=== PATIENT | male | born 1960 | race Caucasian/White ===

== ENCOUNTER 2016-11-10 11:00 | Outpatient (CLI) | payer MEDICAID | END 2016-11-10 23:59 | DX: I10 Essential (primary) hypertension (principal) ==

== ENCOUNTER 2017-03-11 09:51 | Outpatient (CLI) | payer MEDICAID | END 2017-03-11 09:52 | disposition critical access hospital (66) | LOC: EMS 09:51 | PROVIDERS: ATTEND Surgery | DX: S89.91XA Unspecified injury of right lower leg, initial encounter (principal); W18.39XA Other fall on same level, initial encounter; Y92.003 Bedroom of unspecified non-institutional (private) residence as the place of occurrence of the external cause | CPT/HCPCS: A0425; A0427 ==

== ENCOUNTER 2017-03-11 10:25 | Emergency (ER) | payer MEDICAID ==
[2017-03-11] MEDS ORDERED: ONDANSETRON 4 MG/2 ML VIAL IVP STA (12:41)
[2017-03-11] MEDS ORDERED: HYDROmorphone 1 MG/ML SYRINGE IVP STA ×2 (12:41→15:34)
[2017-03-11] MEDS ORDERED: ONDANSETRON 4 MG/2 ML VIAL ONE (12:44)
[2017-03-11] MEDS ORDERED: HYDROmorphone 1 MG/ML SYRINGE ONE ×2 (12:44→15:36)
[2017-03-11] MEDS ORDERED: LIDOCAINE 1% 2 ML VIAL ONE (14:48)
[2017-03-11] MEDS ORDERED: TETANUS/DIPHTHERIA/PERTUSSIS 0.5 ML SYRINGE IM ONE ×2 (15:16→15:19)
[2017-03-11] MEDS ORDERED: SERTRALINE 50 MG TABLET PO STA (16:32)
[2017-03-11] MEDS ORDERED: HYDROcod/ACET 5/325 Prepack 6 PO ONE ×2 (16:41→16:57)
== END 2017-03-11 17:42 | disposition home or self-care (01) ==
DX: S82.391A Other fracture of lower end of right tibia, initial encounter for closed fracture (principal); S91.311A Laceration without foreign body, right foot, initial encounter; M25.561 Pain in right knee; W18.39XA Other fall on same level, initial encounter; Y92.003 Bedroom of unspecified non-institutional (private) residence as the place of occurrence of the external cause; I69.051 Hemiplegia and hemiparesis following nontraumatic subarachnoid hemorrhage affecting right dominant side; E66.01 Morbid (severe) obesity due to excess calories; I10 Essential (primary) hypertension; E11.9 Type 2 diabetes mellitus without complications; Z93.0 Tracheostomy status; Z79.4 Long term (current) use of insulin; Z79.82 Long term (current) use of aspirin; Z87.891 Personal history of nicotine dependence

== ENCOUNTER 2017-03-11 17:56 | Outpatient (CLI) | payer MEDICAID | END 2017-03-11 17:57 | disposition critical access hospital (66) | LOC: EMS 17:56 | PROVIDERS: ATTEND Surgery | DX: I49.9 Cardiac arrhythmia, unspecified (principal) ==

== ENCOUNTER 2017-03-11 18:18 | Inpatient (IN) | payer MEDICAID ==
[2017-03-11] MEDS ORDERED: diltiaZEM INJ 5 MG/ML VIAL IVP STA ×2 (18:28→21:17)
[2017-03-11] MEDS ORDERED: diltiaZEM INJ 5 MG/ML VIAL ONE ×3 (18:35→22:18)
[2017-03-11] MEDS ORDERED: HYDROmorphone 1 MG/ML SYRINGE ONE ×2 (18:52→21:16)
[2017-03-11] MEDS ORDERED: PROCAINAMIDE 100 MG/1 ML 10 ML MDV IV ONE (19:05)
[2017-03-11] MEDS ORDERED: HYDROmorphone 1 MG/ML SYRINGE IVP STA ×2 (19:05→21:17)
[2017-03-11] MEDS ORDERED: PROCAINAMIDE 100 MG/1 ML 10 ML MDV IV SCH (19:15)
[2017-03-11] MEDS ORDERED: diltiaZEM INJ 125 MG in DEXTROSE 5% 100 ML IV STA ×2 (22:14→22:35)
[2017-03-11] MEDS ORDERED: ONDANSETRON 4 MG/2 ML VIAL IVP PRN (22:27)
[2017-03-11] MEDS ORDERED: ACETAMINOPHEN 325 MG TABLET PO PRN (22:27)
[2017-03-11] MEDS ORDERED: diltiaZEM INJ 5 MG/ML VIAL IVP PRN (22:36)
[2017-03-11] MEDS: HYDROcod/ACETAM 10 MG/325 MG TABLET PO PRN (23:44)
[2017-03-12] MEDS: MAGNESIUM OXIDE 400 MG TABLET PO SCH ×2 (03:08→07:33)
[2017-03-12] MEDS: HYDROmorphone 1 MG/ML SYRINGE IVP PRN ×4 (03:08→18:33)
[2017-03-12] MEDS: SODIUM CHLORIDE FLUSH 0.9% 10 ML SYRINGE IVP SCH ×3 (04:40→21:28)
[2017-03-12] MEDS: diltiaZEM INJ 125 MG in DEXTROSE 5% 100 ML IV SCH ×2 (07:27→16:52)
[2017-03-12] MEDS: BACLOFEN 10 MG TABLET PO PRN ×2 (07:33→14:18)
[2017-03-12] MEDS: INSULIN ASPART 300 UNIT/3 ML PEN SUBQ SCH ×6 (07:54→21:25)
[2017-03-12] MEDS ORDERED: INSULIN ASPART 300 UNIT/3 ML PEN SUBQ SCH (08:00)
[2017-03-12] MEDS: FUROSEMIDE 40 MG TABLET PO SCH (08:41)
[2017-03-12] MEDS: FENOFIBRATE 48 MG TABLET PO SCH (08:41)
[2017-03-12] MEDS: ASPIRIN CHEW 81 MG TABLET PO SCH (08:41)
[2017-03-12] MEDS: OMEGA-3 ACID ETHYL ESTERS 1 GM CAPSULE PO SCH ×2 (08:41→21:28)
[2017-03-12] MEDS: ENOXAPARIN 40 MG/0.4 ML SYRINGE SUBQ SCH (08:41)
[2017-03-12] MEDS: GABAPENTIN 100 MG CAPSULE PO SCH (08:41)
[2017-03-12] MEDS: LISINOPRIL 5 MG TABLET PO SCH ×2 (08:41→21:24)
[2017-03-12] MEDS ORDERED: NON FORMULARY MED (Lovastatin [Lovastatin] 40 MG) PO SCH (09:00)
[2017-03-12] MEDS ORDERED: INSULIN GLARGINE 300 UNIT/3 ML PEN SUBQ SCH (09:00)
[2017-03-12] MEDS: HYDROcod/ACETAM 10 MG/325 MG TABLET PO PRN ×3 (10:06→22:23)
[2017-03-12] MEDS: DIGOXIN 500 MCG/2 ML AMP IVP SCH ×3 (12:02→19:36)
[2017-03-12] MEDS: INSULIN GLARGINE 300 UNIT/3 ML PEN SUBQ SCH (18:33)
[2017-03-12] MEDS ORDERED: SERTRALINE 50 MG TABLET PO SCH (21:00)
[2017-03-12] MEDS: ATORVASTATIN 10 MG TABLET PO SCH (21:25)
[2017-03-12] MEDS ORDERED: diltiaZEM CD 240 MG CAPSULE PO SCH (21:41)
[2017-03-13] MEDS: HYDROmorphone 1 MG/ML SYRINGE IVP PRN (01:03)
[2017-03-13] MEDS: HYDROcod/ACETAM 10 MG/325 MG TABLET PO PRN ×3 (06:14→17:41)
[2017-03-13] MEDS: SODIUM CHLORIDE FLUSH 0.9% 10 ML SYRINGE IVP SCH ×3 (06:14→21:22)
[2017-03-13] MEDS: INSULIN ASPART 300 UNIT/3 ML PEN SUBQ SCH ×7 (07:50→21:06)
[2017-03-13] MEDS ORDERED: AMPICILLIN/SULBACTAM 3 GM in SODIUM CHLORIDE 0.9% MINIBAG 100 ML IV SCH (09:00)
[2017-03-13] MEDS ORDERED: diltiaZEM CD 240 MG CAPSULE PO SCH (09:00)
[2017-03-13] MEDS: ASPIRIN CHEW 81 MG TABLET PO SCH (09:08)
[2017-03-13] MEDS: diltiaZEM CD 240 MG CAPSULE PO SCH ×2 (09:09→21:22)
[2017-03-13] MEDS: FENOFIBRATE 48 MG TABLET PO SCH (09:10)
[2017-03-13] MEDS: ENOXAPARIN 40 MG/0.4 ML SYRINGE SUBQ SCH (09:10)
[2017-03-13] MEDS: FUROSEMIDE 40 MG TABLET PO SCH (09:11)
[2017-03-13] MEDS: INSULIN GLARGINE 300 UNIT/3 ML PEN SUBQ SCH ×2 (09:12→21:10)
[2017-03-13] MEDS: GABAPENTIN 100 MG CAPSULE PO SCH (09:12)
[2017-03-13] MEDS: OMEGA-3 ACID ETHYL ESTERS 1 GM CAPSULE PO SCH ×2 (09:13→21:05)
[2017-03-13] MEDS: LISINOPRIL 5 MG TABLET PO SCH ×2 (09:13→21:03)
[2017-03-13] MEDS: BACLOFEN 10 MG TABLET PO PRN (09:14)
[2017-03-13] MEDS ORDERED: SODIUM CHLORIDE 0.9% 100ML 100 ML IV ONE (17:25)
[2017-03-13] MEDS: SODIUM CHLORIDE FLUSH 0.9% 10 ML SYRINGE IVP PRN ×2 (17:36→22:51)
[2017-03-13] MEDS: AMPICILLIN/SULBACTAM 3 GM in SODIUM CHLORIDE 0.9% MINIBAG 100 ML IV SCH ×2 (17:36→22:50)
[2017-03-13] MEDS ORDERED: DOCUSATE SODIUM 250 MG CAPSULE PO PRN ×2 (20:25→20:28)
[2017-03-13] MEDS ORDERED: SENNA 8.6 MG TABLET PO PRN (20:48)
[2017-03-13] MEDS ORDERED: SERTRALINE 50 MG TABLET PO SCH (21:00)
[2017-03-13] MEDS: ATORVASTATIN 10 MG TABLET PO SCH (21:03)
[2017-03-13] MEDS ORDERED: diltiaZEM CD 120 MG CAPSULE PO ONE (21:05)
[2017-03-14] MEDS: HYDROcod/ACETAM 10 MG/325 MG TABLET PO PRN ×2 (04:10→11:16)
[2017-03-14] MEDS: SODIUM CHLORIDE FLUSH 0.9% 10 ML SYRINGE IVP SCH ×2 (05:03→09:16)
[2017-03-14] MEDS: AMPICILLIN/SULBACTAM 3 GM in SODIUM CHLORIDE 0.9% MINIBAG 100 ML IV SCH ×2 (05:03→11:35)
[2017-03-14] MEDS ORDERED: diltiaZEM CD 120 MG CAPSULE PO SCH (09:00)
[2017-03-14] MEDS ORDERED: POLYETHYLENE GLYCOL 3350 17 GM PACKET PO SCH (09:00)
[2017-03-14] MEDS: INSULIN ASPART 300 UNIT/3 ML PEN SUBQ SCH ×4 (09:10→12:39)
[2017-03-14] MEDS: INSULIN GLARGINE 300 UNIT/3 ML PEN SUBQ SCH (09:13)
[2017-03-14] MEDS: GABAPENTIN 100 MG CAPSULE PO SCH (09:14)
[2017-03-14] MEDS: FUROSEMIDE 40 MG TABLET PO SCH (09:14)
[2017-03-14] MEDS: FENOFIBRATE 48 MG TABLET PO SCH (09:14)
[2017-03-14] MEDS: OMEGA-3 ACID ETHYL ESTERS 1 GM CAPSULE PO SCH (09:14)
[2017-03-14] MEDS: ENOXAPARIN 40 MG/0.4 ML SYRINGE SUBQ SCH (09:15)
[2017-03-14] MEDS: ASPIRIN CHEW 81 MG TABLET PO SCH (09:15)
[2017-03-14] MEDS: LISINOPRIL 5 MG TABLET PO SCH (09:15)
[2017-03-14] MEDS: BACLOFEN 10 MG TABLET PO PRN (11:30)
[2017-03-14] MEDS ORDERED: HYDROcod/ACETAM 10 MG/325 MG TABLET PO ONE (13:21)
== END 2017-03-14 13:42 | disposition home or self-care (01) | DRG 309 ==
DX: I48.1 Persistent atrial fibrillation (principal); I69.051 Hemiplegia and hemiparesis following nontraumatic subarachnoid hemorrhage affecting right dominant side; Z68.43 Body mass index [BMI] 50.0-59.9, adult; S82.391A Other fracture of lower end of right tibia, initial encounter for closed fracture; S91.311A Laceration without foreign body, right foot, initial encounter; M25.561 Pain in right knee; W18.39XA Other fall on same level, initial encounter; Y92.003 Bedroom of unspecified non-institutional (private) residence as the place of occurrence of the external cause; E66.01 Morbid (severe) obesity due to excess calories; I10 Essential (primary) hypertension; E11.65 Type 2 diabetes mellitus with hyperglycemia; J38.00 Paralysis of vocal cords and larynx, unspecified; E87.5 Hyperkalemia; F32.9 Major depressive disorder, single episode, unspecified; G89.4 Chronic pain syndrome; Z93.0 Tracheostomy status; Z79.4 Long term (current) use of insulin; Z79.82 Long term (current) use of aspirin; Z87.891 Personal history of nicotine dependence; Z99.81 Dependence on supplemental oxygen

== ENCOUNTER 2017-03-14 13:44 | Outpatient (CLI) | payer MEDICAID | END 2017-03-14 13:45 | disposition home or self-care (01) | LOC: EMS 13:44 | PROVIDERS: ATTEND Surgery | DX: S82.301A Unspecified fracture of lower end of right tibia, initial encounter for closed fracture (principal) | CPT/HCPCS: A0425; A0428 ==

== ENCOUNTER 2017-03-15 09:07 | Outpatient (CLI) | payer MEDICAID | END 2017-03-15 09:08 | disposition critical access hospital (66) | LOC: EMS 09:07 | PROVIDERS: ATTEND Surgery | DX: M79.661 Pain in right lower leg (principal); R53.1 Weakness; R50.9 Fever, unspecified | CPT/HCPCS: A0425; A0429 ==

== ENCOUNTER 2017-03-15 09:39 | Inpatient (IN) | payer MEDICAID ==
[2017-03-15] MEDS ORDERED: metFORMIN 500 MG TABLET PO STA (09:51)
[2017-03-15] MEDS ORDERED: diltiaZEM CD 120 MG CAPSULE PO STA (09:51)
[2017-03-15] MEDS ORDERED: HYDROcod/ACETAM 10 MG/325 MG TABLET PO STA (09:51)
--- NOTE | 2017-03-15 09:59 | ED Physician Documentation ---
History of Present Illness - Stated complaint Stated Complaint: FAILURE TO THRIVE - Chief complaint Chief Complaint: General - Additonal information Additional information: hx from EMS, pt, EMR, and hospitalist who care for pt this week 56 male with hx prior CVA now R hemiplegic with a trach bed bound recently seen for an ankle fx on his non wt bearing side, and then admitted for a fib RVR hx int a fib - had an extensive cardiac work up including echo which did not show evidence of R heart strain PE per hospitalist, ortho consulted re ankle fx it was recommended he be dced to SNF, per hospitalist pt refused and so was dced home with [facility] 7 hr a day EMS reports that when they returned the pt home the family (86 y/o mother) stated she could not take care of him mother called hospitalist last night a conference call was arranged for 10 AM to consider placement and or other option but approx 9 AM, 911 was called to return pt to hospital for placement per EMS pt was sitting in bed soaked in urine, he has not taken his AM med so his blood sugar and HR are up, and he now agrees a SNF is best pt has no new concerns injuries complaints his ankle hurts but no other pain no fever, no new cough, no NVD, incont of urine 2/2 cannot get up Review of Systems Constitutional: denies: Fever, Chills Cardiac: denies: Chest pain / pressure, Palpitations Respiratory: reports: Cough (baseline). denies: Dyspnea GI: denies: Abdominal Pain, Nausea, Vomiting, Diarrhea : reports: Incontinent (due to being bed bound) Musculoskeletal: reports: Extremity pain (known ankle fx) Endocrine: denies: Easy bruising / bleeding Immunocompromised: denies: Immunocompromised PD PAST MEDICAL HISTORY - Past Medical History Cardiovascular: Hypertension, High cholesterol Respiratory: Other Neuro: Other Endocrine/Autoimmune: Type 2 diabetes GI: None : None HEENT: None Psych: Depression Musculoskeletal: None Derm: None - Past Surgical History Past Surgical History: Yes General: Cholecystectomy HEENT: Tracheostomy - Present Medications Home Medications: Ambulatory Orders Medication Instructions Recorded Confirmed Insulin Glargine,Hum.rec.anlog 76 unit SQ QPM 03/20/13 03/15/17 [Lantus Solostar] Lisinopril 10 mg PO BID 03/20/13 03/15/17 Lovastatin 40 mg PO QPM 03/20/13 03/15/17 Multivitamin [Multivitamins] 1 each PO DAILY 03/20/13 03/15/17 metFORMIN [Glucophage] 1,000 mg PO BIDWM 03/20/13 03/15/17 Fenofibrate 160 mg PO DAILY 06/10/14 03/15/17 Aspirin 81 mg PO DAILY 10/04/16 03/15/17 HYDROcodone/ACET 10/325 [[place] 10 1 tab PO QID 10/04/16 03/15/17 mg/325 mg] Insulin Aspart [Novolog Flexpen] 40 unit SUBQ TIDWM 10/04/16 03/15/17 Furosemide [Lasix] 80 mg PO DAILY 03/11/17 03/15/17 Gabapentin 100 - 200 mg PO QPM 03/11/17 03/15/17 Hydrocodone/Acetaminophen [[place] 1 each PO Q6HR PRN #20 tablet 03/11/17 03/15/17 10-325 Tablet] Icosapent Ethyl [Vascepa] 2 gm PO BID 03/12/17 03/15/17 Sertraline HCl [Zoloft] 300 mg PO QPM 03/12/17 03/15/17 Baclofen 10 mg PO TID PRN #21 tablet 03/14/17 03/15/17 diltiaZEM CD [Cardizem Cd] 120 mg PO BID #60 capsule 03/14/17 03/15/17 - Allergies Allergies/Adverse Reactions: Allergies Allergy/AdvReac Type Severity Reaction Status Date / Time niacin Allergy Severe Hives Verified 03/15/17 09:58 - Social History Does the pt smoke?: No Smoking Status: Former smoker Does the pt drink ETOH?: No Does the pt have substance abuse?: No - Immunizations Immunizations are current?: No Immunizations: TDAP >10years/unknown - POLST Patient has POLST: No PD ED PE NORMAL - Vitals Vital signs reviewed: Yes - General General: Alert and oriented X 3 - HEENT HEENT: PERRL - Neck Neck: Supple, no meningeal sign - Cardiac Cardiac: RRR (little rapid - did not take AM cardizem) - Respiratory Respiratory: No respiratory distress, Clear bilaterally - Abdomen Abdomen: Soft, Non tender - Male Male : Other (prior scrotal wound well healed) - Back Back: Other (mild erythema but no decub or breakdown) - Derm Derm: Normal color - Extremities Extremities: Other (RLE in camwalker, MSV intact) - Neuro Neuro: Alert and oriented X 3, Other (R hemiparesis) Results - Vitals Vitals: Vital Signs - 24 hr 03/15/17 03/15/17 03/15/17 14:11 17:36 21:20 Heart Rate 72 81 91 Respiratory 18 17 15 Rate Blood Pressure 107/51 L 131/86 H 123/64 O2 Saturation 98 95 97 03/16/17 03/16/17 03/16/17 02:24 02:30 07:59 Heart Rate 104 H 103 H Respiratory 18 24 Rate Blood Pressure 148/60 H 116/63 O2 Saturation 91 L 97 84 L 03/16/17 03/16/17 09:00 11:25 Heart Rate 92 94 Respiratory 20 22 Rate Blood Pressure 113/72 O2 Saturation 94 94 Oxygen O2 Source [] 50% O2 via trach blow by O2 Source Nasal cannula Oxygen Flow Rate 6 - Labs Labs: Laboratory Tests 03/16/17 03/16/17 03/16/17 11:57 11:57 11:57 WBC 11.0 H RBC 4.02 L Hgb 12.0 L Hct 35.0 L MCV 87.1 MCH 29.8 MCHC 34.2 RDW 13.6 Plt Count 258 MPV 8.2 Neut # 7.7 H Lymph # 1.7 [place] # 1.1 H Eos # 0.3 Baso # 0.1 Absolute Nucleated RBC 0.01 Nucleated RBCs 0.1 Sodium 132 L Potassium 4.6 Chloride 88 L Carbon Dioxide 37 H Anion Gap 7.0 BUN 33 H Creatinine 1.0 Estimated GFR (MDRD) 77 L Glucose 299 H Calcium 9.0 Troponin I < 0.04 B-Natriuretic Peptide 03/16/17 11:57 WBC RBC Hgb Hct MCV MCH MCHC RDW Plt Count MPV Neut # Lymph # [place] # Eos # Baso # Absolute Nucleated RBC Nucleated RBCs Sodium Potassium Chloride Carbon Dioxide Anion Gap BUN Creatinine Estimated GFR (MDRD) Glucose Calcium Troponin I B-Natriuretic Peptide 51 - Rads (name of study) CXR Radiology: See rad report (low lung volumes atelectasis) CXR2 Radiology: See rad report (poor insp atelectasis possible mild edema) CTPA Radiology: See rad report (no PE, lingular and LLL consolidation, atelectasis) PD MEDICAL DECISION MAKING - ED course ED course: pt was just discharged yesterday after a thorough work up no need for more labs xrays etc pt needs SNF placement consulted SW will be boarding in the ER indef pending placement gave pt his AM meds - after metformin no change in blood sugar - also ordered his insulin, after cardizem HR down but BP dropped too, recovered s intervention but will hold the lisinopril for now, given his usual dose of norco he was req more suppl O2 than his normal baseline and coughing so got a CXR which showed atelectasis but mo CHF or pna, cannot do IS due to trach but will see if RT has any pulm toilet recommendations SW unable to find placement for pt today - barriers are BMI, hemiparesis, incontinent, trach, and insurance met with admin and nurse sup - am advised pt is to remain in the ER for boarding at this time - admin advises that they have requested the hospitalist to write orders for the pt though he is still an ER pt - I had already ordered some of his daily meds and chosen to hold the BP meds - went through orders with nursing to ensure nothing was double ordered, bariatric bed to the ER pt will be boarding in the ER overnight - turned over to overnight EMP Dr Turpin and will resume care of pt in the AM resumed care 7 AM, no overnight events reported, went to see pt, he is resting comfortably got AM vitals and pt is profoundly hypoxic sat 81-84% on his usual 4 L NC, increased to 6 L, suction trach and will order a rpt CXR CXR poor insp atelectasis possible edema given that pt had recent leg injury, is in a boot, hospitalized and bed ridden at home too, had afib RVR, and is now hypoxic and neding more than his baseline O2 must consider PE - d dimer not appropriate for a high risk pt - GFR was fine within the week - so ordered CTPA - pt will need to hold metformin for next three days CTPA does not show PE but pt does have pna, hospital aquired, will start ab and admit for HAP hypoxia Departure - Departure Disposition: 66 [facility] DC/Xfer Clinical Impression: Hypoxia Pneumonia Qualifiers: Pneumonia type: due to unspecified organism Laterality: left Lung location: lower lobe of lung Qualified Code(s): J18.1 - Lobar pneumonia, unspecified organism
[2017-03-15] MEDS ORDERED: diltiaZEM 30 MG TABLET PO ONE (10:14)
[2017-03-15] MEDS ORDERED: metFORMIN 500 MG TABLET ONE ×2 (10:15→17:52)
--- NOTE | 2017-03-15 12:39 | XRAY Preliminary Report ---
Exam: XR Chest 2 View PA/LAT IMPRESSION: 1. Low lung volumes with left basilar atelectasis. [facility] SITE ID: [id number]
--- NOTE | 2017-03-15 12:41 | XRAY Report ---
EXAM: CHEST RADIOGRAPHY EXAM DATE: 03/15/2017 12:01 PM. CLINICAL HISTORY: Cough with increasing oxygen needs. COMPARISON: 10/11/2016. TECHNIQUE: 2 views. FINDINGS: Lungs/Pleura: Left basilar atelectasis. No pleural effusion. No pneumothorax. Diminished lung volumes. Azygos fissure noted. Mediastinum: Heart and mediastinal contours are unremarkable. Other: Tracheostomy tube tip is 4.6 cm above jayda. IMPRESSION: 1. Low lung volumes with left basilar atelectasis. [facility] Referring Provider Line: [phone] SITE ID: [id number]
[2017-03-15] MEDS ORDERED: HYDROcod/ACETAM 10 MG/325 MG TABLET ONE ×2 (15:29→21:30)
[2017-03-15] MEDS: HYDROcod/ACETAM 10 MG/325 MG TABLET PO PRN ×2 (15:34→21:38)
[2017-03-15] MEDS ORDERED: INSULIN ASPART 100 UNIT/1 ML 10 ML MDV SUBQ SCH (17:00)
[2017-03-15] MEDS: INSULIN ASPART 300 UNIT/3 ML PEN SUBQ SCH (17:58)
[2017-03-15] MEDS: metFORMIN 500 MG TABLET PO SCH (17:59)
[2017-03-15] MEDS ORDERED: LISINOPRIL 5 MG TABLET ONE (21:31)
[2017-03-15] MEDS ORDERED: GABAPENTIN 100 MG CAPSULE ONE (21:31)
[2017-03-15] MEDS: INSULIN GLARGINE 300 UNIT/3 ML PEN SUBQ SCH (21:36)
[2017-03-15] MEDS: OMEGA-3 ACID ETHYL ESTERS 1 GM CAPSULE PO SCH (21:37)
[2017-03-15] MEDS: ATORVASTATIN 10 MG TABLET PO SCH (21:37)
[2017-03-15] MEDS: diltiaZEM CD 120 MG CAPSULE PO SCH (21:37)
[2017-03-15] MEDS: SERTRALINE 50 MG TABLET PO SCH (21:37)
[2017-03-15] MEDS: GABAPENTIN 100 MG CAPSULE PO SCH (21:38)
[2017-03-15] MEDS: LISINOPRIL 5 MG TABLET PO SCH (21:38)
[2017-03-16] MEDS ORDERED: HYDROcod/ACETAM 10 MG/325 MG TABLET ONE ×2 (04:15→09:47)
[2017-03-16] MEDS: HYDROcod/ACETAM 10 MG/325 MG TABLET PO PRN ×3 (04:21→20:20)
[2017-03-16] MEDS: BACLOFEN 10 MG TABLET PO PRN ×3 (04:21→16:11)
[2017-03-16] MEDS ORDERED: metFORMIN 500 MG TABLET ONE (09:10)
[2017-03-16] MEDS ORDERED: LISINOPRIL 5 MG TABLET ONE (09:11)
[2017-03-16] MEDS ORDERED: MULTIVITAMIN TABLET PO ONE (09:11)
[2017-03-16] MEDS ORDERED: ASPIRIN CHEW 81 MG TABLET ONE (09:12)
[2017-03-16] MEDS ORDERED: FUROSEMIDE 20 MG TABLET ONE (09:13)
[2017-03-16] MEDS: INSULIN ASPART 300 UNIT/3 ML PEN SUBQ SCH ×3 (09:22→16:12)
[2017-03-16] MEDS: LISINOPRIL 5 MG TABLET PO SCH ×2 (09:23→20:20)
[2017-03-16] MEDS: diltiaZEM CD 120 MG CAPSULE PO SCH ×2 (09:27→20:20)
[2017-03-16] MEDS: metFORMIN 500 MG TABLET PO SCH (09:27)
[2017-03-16] MEDS: FUROSEMIDE 40 MG TABLET PO SCH (09:27)
[2017-03-16] MEDS: ASPIRIN CHEW 81 MG TABLET PO SCH (09:27)
[2017-03-16] MEDS: MULTIVITAMIN TABLET PO SCH (09:28)
[2017-03-16] MEDS: FENOFIBRATE 48 MG TABLET PO SCH (09:28)
[2017-03-16] MEDS: OMEGA-3 ACID ETHYL ESTERS 1 GM CAPSULE PO SCH ×2 (09:28→20:19)
--- NOTE | 2017-03-16 09:32 | XRAY Report ---
EXAM: CHEST RADIOGRAPHY EXAM DATE: 03/16/2017 09:10 AM. CLINICAL HISTORY: Hypoxia. Clinical concern for pneumonia. COMPARISON: 03/15/2017 radiograph. TECHNIQUE: 2 views. FINDINGS: Lungs/Pleura: The lung volumes are decreased. There may be mild central pulmonary vascular congestion . The patient has a prominent azygos fissure as before. No pneumothorax or pleural effusions. Mediastinum: Heart and mediastinal contours are unremarkable. Other: None. IMPRESSION: Possible mild central pulmonary vascular congestion. [facility] Referring Provider Line: [phone] SITE ID: [id number]
[2017-03-16] MEDS ORDERED: IOPAMIDOL-300 100 ML VIAL IVP ONE (11:17)
[2017-03-16 12:05] LABS: BASOPHILS # (AUTO) 0.1 10^3/uL (0.0-0.1); BASOPHILS % (AUTO) 0.9 %; EOSINOPHILS # (AUTO) 0.3 10^3/uL (0.0-0.7); EOSINOPHILS % (AUTO) 3.1 %; LYMPHOCYTES # (AUTO) 1.7 10^3/uL (1.5-3.5); LYMPHOCYTES % (AUTO) 15.7 %; MEAN CORPUSCULAR HEMOGLOBIN 29.8 pg (27.0-31.0); MEAN CORPUSCULAR HGB CONC 34.2 g/dL (32.0-36.0); MEAN CORPUSCULAR VOLUME 87.1 fL (80.0-94.0); MEAN PLATELET VOLUME 8.2 fL (7.4-11.4); MONOCYTES # (AUTO) 1.1 10^3/uL (0.0-1.0); MONOCYTES % (AUTO) 9.9 %; NEUTROPHILS # (AUTO) 7.7 10^3/uL (1.5-6.6); NEUTROPHILS % (AUTO) 70.4 %; NUCLEATED RED BLOOD CELLS AUTO 0.1 /100WBC; RED BLOOD COUNT 4.02 10^6/uL (4.70-6.10); RED CELL DISTRIBUTION WIDTH 13.6 % (12.0-15.0)
[2017-03-16 12:15] LABS: POTASSIUM 4.6 mmol/L (3.5-5.0)
--- NOTE | 2017-03-16 12:48 | CT Preliminary Report ---
Exam: CT Chest Angio (PE) IMPRESSION: 1. Evidence of pulmonary embolus, aortic angles or aortic dissection. 2. Consolidative changes in the lingula and left lower lobe. Bilateral lower lobe atelectasis. 3. Cardiomegaly. No vascular congestion. 4. Fatty liver. [facility] SITE ID: [id number]
[2017-03-16] MEDS ORDERED: PIPERACILLIN/TAZOBACTAM 3.375 GM in SODIUM CHLORIDE 0.9% MINIBAG 100 ML IV STA (13:42)
--- NOTE | 2017-03-16 13:42 | CT Report ---
EXAM: CT ANGIOGRAM CHEST EXAM DATE: 03/16/2017 11:26 AM. CLINICAL HISTORY: New hypoxia. COMPARISON: 03/16/2017. 03/15/2017. TECHNIQUE: Routine helical imaging was performed through the chest in the pulmonary arterial phase. I V Contrast: 100 mL of Isovue-300. Reconstructions: Coronal 3-D MIP reconstructions.Sagittal and coron al. In accordance with CT protocol optimization, one or more of the following dose reduction techniques w ere utilized for this exam: automated exposure control, adjustment of mA and/or KV based on patient s ize, or use of iterative reconstructive technique. FINDINGS: Pulmonary Arteries: Diagnostic quality: Adequate through the segmental arteries. No evidence of acute or chronic pulmonar y emboli noting that the peripheral pulmonary arteries are visualize due to respiratory motion. Lungs/Pleura: Left lower lobe and lingular consolidative opacities are seen. Basilar scar/atelectasis . No pneumothorax. Trachea and mainstem bronchi are small. No pneumothorax. No pleural effusions. Mediastinum: Heart is enlarged. Left lateral pericardial calcification. Visualized thyroid gland is u nremarkable. Tracheostomy is seen with the inferior aspect of the cuff within the superior intrathor acic trachea. Subcentimeter mediastinal and hilar lymph nodes are present, the largest right paratrac heal measuring 9 mm in short axis dimension. Thoracic Aorta: Normal in caliber. No aneurysm. Limited opacification. No definitive dissection. Maxi mal size of the ascending aorta measures 3.8-3.9 cm. No mediastinal hematoma. Upper Abdomen: Fatty liver. The entire liver was not included. Status post gastric band surgery. Incl uded portion of the adrenals, pancreas, left kidney and colon are unremarkable. Other: Degenerative changes of the thoracic spine. No acute osseous abnormalities. IMPRESSION: 1. No evidence of pulmonary embolus, aortic aneurysm, or aortic dissection. 2. Consolidative changes in the lingula and left lower lobe. Bilateral lower lobe atelectasis. 3. Cardiomegaly. No vascular congestion. 4. Fatty liver. [facility] Referring Provider Line: [phone] SITE ID: [id number]
[2017-03-16] MEDS: SODIUM CHLORIDE FLUSH 0.9% 10 ML SYRINGE IVP SCH ×2 (16:11→20:22)
[2017-03-16] MEDS: SACCHAROMYCES BOULARDII 250 MG CAPSULE PO SCH (16:11)
[2017-03-16] MEDS: levoFLOXacin 250 MG TABLET PO SCH (16:11)
[2017-03-16] MEDS: PIPERACILLIN/TAZOBACTAM 4.5 GM in SODIUM CHLORIDE 0.9% MINIBAG 100 ML IV SCH (18:08)
[2017-03-16] MEDS ORDERED: BISACODYL 10 MG SUPP PR SCH (19:00)
--- NOTE | 2017-03-16 19:29 | HISTORY & PHYSICAL EXAMINATION ---
DATE OF ADMISSION: 03/16/2017 PRIMARY CARE PROVIDER: Jen Lindsay. ADMITTING PROVIDER: Pavithra Toribio MD. CHIEF COMPLAINT: Pneumonia. HISTORY OF PRESENT ILLNESS: The patient is an unfortunate 56-year-old man who had a subarachnoid hemorrhage and subsequent aneurysmal clip in 2007. He was hospitalized for 5 months and has been left with residual right-sided weakness and tracheostomy because of vocal cord paralysis. He lives in his own home. His elderly mother lives with him. He receives [facility] help up to 7 hours a day that helps clean house, helps him bathe, get food ready. Last year he was able to stand to transfer with forearm braces and hands locked on 2 canes. He was able to get up to go the bathroom, feed himself, and has intact bowel or bladder control. He was admitted 09/2016 with a UTI. Discharged home. He returned with pneumonia. Discharged. Then returned in February 2017 with atrial fibrillation with RVR. He had fallen that day, broken his distal tibia on the paralyzed side. He came to the emergency room, and was seen by the emergency room doctor, put in a brace and sent home with BLS with instructions to see Dr. Mccormick in the next week. On his way home, he began having palpitations. He has known paroxysmal SVT or atrial fibrillation. He gets episodes every once in awhile. The ambulance brought him back to the emergency room and he was admitted with atrial fibrillation with RVR. Rate was controlled, the patient was stabilized and able to be sent home. During his stay in September 2016 it was offered for him to go to [place] for rehabilitation, and he declined. With this current episode he did not want to be placed. We do recommend that his status is tenuous at best because of his super obesity, and inability to ambulate, especially in the face of this new broken tibia. Nevertheless, he said he wanted to go home and he did so. His mom called that night saying that she cannot take care of him. We explained that we would try and make placement arrangements for him as long as he agreed to that. The next day he returned to the emergency room via BLS because he could not be taken care of at home. He has been waiting in the emergency room for placement. He then developed cough and shortness of breath in the emergency room in the last few hours, but no fever. His white cell count is stable at 11,000. He has been running at about 11 -11.9 since March 11. No left shift. Dr. Contreras was concerned because the cough then was symptomatic with hypoxia and she was worried about a PE. As such, she ordered a CT pulmonary angiogram. He has left lower lobe and lingular consolidation, enlarged heart, left lateral pericardial calcification. A tracheostomy. Some mediastinal and hilar nodes. He has huge fatty liver. He has had a gastric band surgery. But he does not have a pulmonary embolus. As such, he is now admitted as pneumonia, most likely associated with hospitalization. PAST MEDICAL HISTORY: 1. Subarachnoid hemorrhage 2007. Status post aneurysmal clipping. Status post tracheostomy because of vocal cord paralysis. He has residual right-sided body weakness. 2. Hypertension. 3. Type 2 diabetes mellitus, with complications of neuropathy, chronic kidney disease and long-term use of insulin. 4. Hyperlipidemia. 5. Super obesity status post gastric band surgery. 6. Chronic depression. 7. Chronic pain syndrome of low back, sacroiliac and hips. He does have a chronic pain contract. He is allowed 4 to 5 Vicodin, 10/325 mg a day. He is allowed to refill every 28 days with a max of 4 to 5 tablets daily. 8. Status post hip pinning as a young boy. The pinning was too long and 2 weeks later the pins had to be removed, and new pins put in place. As an adult he was scheduled to have a new hip replacement, but because of his complications and his morbid obesity he lives with chronic hip pain. ALLERGIES: ALLERGIC TO NIACIN. MEDICATIONS: 1. Aspirin 81 mg a day. 2. Fenofibrate 160 mg a day. 3. Gabapentin 200 mg q.p.m.. 4. Metformin 1000 mg p.o. b.i.d. with meals. 5. Lantus 76 units at night. 6. NovoLog FlexPen 40 units subcutaneous t.i.d. with meals. 7. Lasix 80 mg daily. 8. Lisinopril 10 mg p.o. b.i.d.. 9. Lovastatin 40 mg daily. 10. Multivitamin 1 p.o. daily. 11. Vascepa 2 grams p.o. b.i.d.. 12. Zoloft 300 mg p.o. q.p.m. 13. [place] 10/325 mg 1-2 tablets every 6 hours as needed. 14. Baclofen 10 mg p.o. t.i.d. p.r.n. 15. Diltiazem CD 120 mg p.o. b.i.d. for his recent atrial fibrillation. SOCIAL HISTORY: He used to smoke cigarettes but stopped approximately 2004, 3 years before his subarachnoid hemorrhage. Cigars stopped at the time of his subarachnoid hemorrhage. He has never had a problem with alcohol abuse or recreational substance abuse. He lives on the [facility] in his own home with mom living with him. 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 He has never been and has no children. CODE STATUS: FULL CODE STATUS. FAMILY HISTORY: Dad of complications of alcoholism. Mom is 83 and recently diagnosed with congestive heart failure and bullous impetigo. He has 5 siblings , 2 are . A younger sister of a heroin overdose. Younger brother at age 39 of unknown type of cancer. His other siblings as far as he knows are healthy. He has no children. REVIEW OF SYSTEMS: He is a super obese gentleman who has gradually been losing his easy mobility over the last few months and has been getting steadily worse. With this last fall and hospitalization for the atrial fibrillation with RVR, he has lost a lot of strength. He says he cannot even roll over in bed anymore. In 2012, his weight was 185.5 kilograms. On October 09 he was 214 kilograms. March 11 he was 197 kilograms, and today his weight is 219 kilograms. ENT: He denies glaucoma or cataracts, visual changes. His upper teeth are gone. No dentures. He denies facial droop, dysesthesia, dysphagia, dysarthria. PULMONARY: Constant daily cough that has continued for years. He does his own tracheostomy care and has been using a disposal tracheostomy kit. With his discharge day before yesterday, I explained to him that he needs to be referred to ENT and evaluated for new equipment and to stop using disposable kits. The tracheostomy is productive of occasional white or yellow phlegm. No hemoptysis. CARDIAC: He denies any murmur or valvular heart disease. Congestive heart failure. Denies angina. Denies any new edema. He says his legs are always swollen. GASTROINTESTINAL: Chronic constipation. No diarrhea, no abdominal pain. Occasional reflux. GENITOURINARY: He denies dysuria, urgency, frequency, flank pain. SKIN: He feels it is doing well. He denies skin breakdown, rashes, moles. PSYCHIATRIC: He has chronic depression and chronic pain. He told me in 2016 "it is what it is" and he repeats that statement today. The current emotion he is feeling is embarrassment. He knew that this day would eventually come with regards to getting sick and not being able to even do the minimum standby and transfer. He now regrets declining rehabilitation because it could have bought him more time. NEUROLOGICAL: Chronic right body weakness, and can grasp using his right hand. No history of seizures. No history of syncope. PHYSICAL EXAMINATION: VITAL SIGNS: On examination today his temperature is 37.3, pulse was 110, blood pressure 119/68, respirations 22. He is 96% on a trach mask. GENERAL: He is an alert, pleasant, super obese white male with swanson, poor dentition, but has normal lucid speech and able to cooperate. HEAD AND NECK: Unremarkable other than the loss of his upper teeth, and he has no facial droop. Pupils are reactive. Moist oral mucosa. Neck is too thick to assess for JVD and I palpate shotty adenopathy, I do feel a goiter, and I do not hear bruits. LUNGS: Diminished breath sounds at the bases, but I can only listen at the axilla and anteriorly. I cannot sit him up to listen to his bases. He had no increased respiratory effort, the bases are dull in the axilla, and he has occasional coarse rhonchus sound that clears with a cough, but then come back. I think what I am hearing is upper airway sounds from his tracheostomy. CARDIOVASCULAR: PMI is not palpable for me. I hear distant cardiac tones with irregular rate and rhythm. I do not hear murmurs, rubs, or gallops. ABDOMEN: The abdominal wall is very, very, very large. The abdominal pannus folds over, there are two. The largest pannus covers the top third of his thighs. When lifting the pannus he has excellent skin care and that there is no skin breakdown. No Vani intertrigo. His coccyx has a very tiny skin breakdown that is superficial stage I. EXTREMITIES: Although his legs are quite large, I am not really see any edema that is pitting. No cyanosis. NEUROLOGICAL: He is alert and oriented to person, place and time. Lucid historian. No facial droop. No problems with swallowing is observed. His right body strength is 3-/5+. His right leg strength is 2-/5+. Left arm and leg are able to be lifted off the bed, but overall he is very weak and he says he does not even have the strength to roll over. He is completely dependent on the nurses and requires 3 people to position him comfortably in the bed. He has a right hemiplegia, and not much else on physical exam. LABORATORIES: White cell count 11,000, hemoglobin 12, hematocrit 35. Sodium is 132, potassium 4.6, carbon dioxide 37, BUN 33, creatinine 1, glucose 299. A1c was 9.2% 03/11/2017. The lowest his A1c was 7.2% on 07/2013. Otherwise, he has been between 9 and 11 since that time. Urinalysis on March 11 has leukocyte esterase, red cells, white cells, squamous cells, bacteria, hyaline casts and culture from 03/11/2017 shows mixed gram-positive melchor suggesting contamination. IMAGING: CT discussed above. ASSESSMENT/PLAN: 1. Pneumonia in a patient who is morbidly obese, has a tracheostomy, and has been in and out of the hospital this last week. He will be treated as a hospital -acquired pneumonia with cefepime or Zosyn. He has not had MRSA grow out on any of his cultures. I have asked respiratory to do trach care, and will discuss with them what we can do to find him new tracheostomy equipment. 2. Atrial fibrillation with rapid ventricular response resulting in hospitalization this last week. Right now, rate is controlled. He is on a new medicine of Cardizem. We will increase the dose from 120 b.i.d. or add metoprolol. 3. Hypertension, controlled. 4. Type 2 diabetes mellitus, with complications, use of long-term insulin, uncontrolled. Right now he has got NovoLog 40 units subcutaneous t.i.d. with meals, with long-acting insulin of 76 units q.p.m. We will continue to check sugars before meals and at bedtime. Adjust as needed. 5. Super obesity and residual right hemiplegia from a subarachnoid hemorrhage. This gentleman needs a long-term rehabilitation program to encourage weight loss , and also increase his endurance so that he can get back to his baseline of being able to sit up and standing to transfer. Right now he cannot do any of that. Once he is stabilized from the pneumonia perspective, begin addressing nursing home facility in this area that would be willing to work with his new weakness because of illness. 6. Deep thrombosis prophylaxis, Lovenox. 7. FULL CODE STATUS. 8. Tracheostomy status. Again, have RT work with the ostomy. Provide care and supplies but in the outpatient setting make sure he gets the correct (ie NONdisposable) equipment. JOB #: [id number] EXT JOB #:[id number] GABINO
[2017-03-16] MEDS: SERTRALINE 50 MG TABLET PO SCH (20:19)
[2017-03-16] MEDS: GABAPENTIN 100 MG CAPSULE PO SCH (20:19)
[2017-03-16] MEDS: ATORVASTATIN 10 MG TABLET PO SCH (20:20)
[2017-03-16] MEDS: INSULIN GLARGINE 300 UNIT/3 ML PEN SUBQ SCH (20:29)
[2017-03-17] MEDS: SODIUM CHLORIDE FLUSH 0.9% 10 ML SYRINGE IVP SCH ×3 (00:30→14:31)
[2017-03-17] MEDS: BACLOFEN 10 MG TABLET PO PRN (00:30)
[2017-03-17] MEDS: PIPERACILLIN/TAZOBACTAM 4.5 GM in SODIUM CHLORIDE 0.9% MINIBAG 100 ML IV SCH ×4 (00:30→17:35)
[2017-03-17] MEDS: HYDROcod/ACETAM 10 MG/325 MG TABLET PO PRN ×3 (02:54→17:35)
[2017-03-17 06:01] LABS: BASOPHILS # (AUTO) 0.1 10^3/uL (0.0-0.1); BASOPHILS % (AUTO) 0.9 %; EOSINOPHILS # (AUTO) 0.4 10^3/uL (0.0-0.7); EOSINOPHILS % (AUTO) 3.4 %; HGB - HEMOGLOBIN 12.1 g/dL (14.0-18.0); LYMPHOCYTES # (AUTO) 1.8 10^3/uL (1.5-3.5); LYMPHOCYTES % (AUTO) 17.5 %; MEAN CORPUSCULAR HEMOGLOBIN 29.6 pg (27.0-31.0); MEAN CORPUSCULAR HGB CONC 33.7 g/dL (32.0-36.0); MEAN CORPUSCULAR VOLUME 87.9 fL (80.0-94.0); MONOCYTES % (AUTO) 9.6 %; NEUTROPHILS # (AUTO) 7.1 10^3/uL (1.5-6.6); NEUTROPHILS % (AUTO) 68.6 %; NUCLEATED RED BLOOD CELLS AUTO 0.1 /100WBC; RED CELL DISTRIBUTION WIDTH 13.7 % (12.0-15.0); UNCORRECTED WHITE BLOOD COUNT 10.3 x10^3/uL; WHITE BLOOD COUNT 10.3 x10^3/uL (4.8-10.8)
[2017-03-17 06:08] LABS: CREATININE 0.9 mg/dL (0.6-1.2); POTASSIUM 4.3 mmol/L (3.5-5.0)
[2017-03-17] MEDS: DOCUSATE SODIUM 250 MG CAPSULE PO SCH (07:20)
[2017-03-17] MEDS: POLYETHYLENE GLYCOL 3350 17 GM PACKET PO SCH (07:37)
[2017-03-17] MEDS: SENNA 8.6 MG TABLET PO SCH (07:38)
[2017-03-17] MEDS: INSULIN ASPART 300 UNIT/3 ML PEN SUBQ SCH ×3 (08:06→17:37)
[2017-03-17] MEDS: ENOXAPARIN 40 MG/0.4 ML SYRINGE SUBQ SCH (08:06)
[2017-03-17] MEDS: LISINOPRIL 5 MG TABLET PO SCH ×2 (08:07→21:05)
[2017-03-17] MEDS: OMEGA-3 ACID ETHYL ESTERS 1 GM CAPSULE PO SCH ×2 (08:07→21:08)
[2017-03-17] MEDS: SACCHAROMYCES BOULARDII 250 MG CAPSULE PO SCH ×2 (08:07→17:35)
[2017-03-17] MEDS: FENOFIBRATE 48 MG TABLET PO SCH (08:07)
[2017-03-17] MEDS: levoFLOXacin 250 MG TABLET PO SCH (08:08)
[2017-03-17] MEDS: FUROSEMIDE 40 MG TABLET PO SCH (08:08)
[2017-03-17] MEDS: MULTIVITAMIN TABLET PO SCH (08:08)
[2017-03-17] MEDS: ASPIRIN CHEW 81 MG TABLET PO SCH (08:08)
[2017-03-17] MEDS: diltiaZEM CD 120 MG CAPSULE PO SCH ×2 (08:08→21:05)
--- NOTE | 2017-03-17 18:22 | PROVIDER PROGRESS NOTE ---
Subjective - Prog Note Date Prog Note Date: 03/17/17 Prog Note Time: 18:18 - Subjective Subjective: since yesterday cough and sob better but still copious amts of phlegm thru trach. c/o leg pain not controlled by norco 10/325 1 q4 wants a fan bc so hot in here. depressed. but "it is what it is." Current Medications - Current Medications Current Medications: Active Medications Acetaminophen/Hydrocodone Bitart ([place] 10 Mg/325 Mg) 2 tab PO Q6HR PRN PRN Reason: PAIN Last Admin: 03/17/17 17:35 Dose: 2 tab Aspirin ([place]ony Aspirin) 81 mg PO DAILY [facility] Last Admin: 03/17/17 08:08 Dose: 81 mg Atorvastatin Calcium (Lipitor) 10 mg PO QPM [facility] Last Admin: 03/16/17 20:20 Dose: 10 mg Baclofen (Lioresal) 10 mg PO TID PRN PRN Reason: Cramp Last Admin: 03/17/17 00:30 Dose: 10 mg Diltiazem HCl (Cardizem Cd) 120 mg PO BID [facility] Last Admin: 03/17/17 08:08 Dose: 120 mg Docusate Sodium (Colace 250mg Capsule) 250 - 500 mg PO DAILY [facility] Last Admin: 03/17/17 07:20 Dose: Not Given Enoxaparin Sodium (Lovenox) 40 mg SUBQ DAILY [facility] Last Admin: 03/17/17 08:06 Dose: 40 mg Fenofibrate (Tricor) 144 mg PO DAILY [facility] Last Admin: 03/17/17 08:07 Dose: 144 mg Furosemide (Lasix) 80 mg PO DAILY [facility] Last Admin: 03/17/17 08:08 Dose: 80 mg Gabapentin (Neurontin) 200 mg PO QPM [facility] Last Admin: 03/16/17 20:19 Dose: 200 mg Piperacillin Sod/Tazobactam (Sod 4.5 gm/ Sodium Chloride) 100 mls @ 100 mls/hr IV Q6HR [facility] Last Admin: 03/17/17 17:35 Dose: 100 mls/hr Insulin Aspart (Novolog) 40 unit SUBQ TIDWM [facility] Last Admin: 03/17/17 17:37 Dose: 40 unit Insulin Glargine (Lantus Solostar) 76 unit SUBQ QPM [facility] Last Admin: 03/16/17 20:29 Dose: 76 unit Levofloxacin (Levaquin) 750 mg PO DAILY [facility] Last Admin: 03/17/17 08:08 Dose: 750 mg Lisinopril (Zestril) 10 mg PO BID [facility] Last Admin: 03/17/17 08:07 Dose: 10 mg Multivitamins (Theragran) 1 tab PO DAILYWM [facility] Last Admin: 03/17/17 08:08 Dose: 1 tab Ileqc-7-Rted Ethyl Esters (Lovaza) 2 gm PO BID [facility] Last Admin: 03/17/17 08:07 Dose: 2 gm Polyethylene Glycol (Miralax) 17 gm PO DAILY [facility] Last Admin: 03/17/17 07:37 Dose: Not Given Saccharomyces Boulardii (Florastor) 250 mg PO BIDWM [facility] Last Admin: 03/17/17 17:35 Dose: 250 mg Senna (Senokot) 8.6 - 17.2 mg PO DAILY [facility] Last Admin: 03/17/17 07:38 Dose: Not Given Sertraline HCl (Zoloft) 300 mg PO QPM [facility] Last Admin: 03/16/17 20:19 Dose: 300 mg Sodium Chloride (Normal Saline Flush 0.9%) 10 ml IVP PRN PRN PRN Reason: NEEDED PER PROVIDER ORDERS Sodium Chloride (Normal Saline Flush 0.9%) 10 ml IVP Q8HR [facility] Last Admin: 03/17/17 14:31 Dose: Not Given Insulin Glargine,Hum.rec.anlog [Lantus Solostar] 76 unit SQ QPM 03/20/13 Lisinopril 10 mg PO BID 03/20/13 Lovastatin 40 mg PO QPM 03/20/13 Multivitamin [Multivitamins] 1 each PO DAILY 03/20/13 metFORMIN [Glucophage] 1,000 mg PO BIDWM 03/20/13 Fenofibrate 160 mg PO DAILY 06/10/14 Aspirin 81 mg PO DAILY 10/04/16 HYDROcodone/ACET 10/325 [[place] 10 mg/325 mg] 1 tab PO QID 10/04/16 Insulin Aspart [Novolog Flexpen] 40 unit SUBQ TIDWM 10/04/16 Furosemide [Lasix] 80 mg PO DAILY 03/11/17 Gabapentin 100 - 200 mg PO QPM 03/11/17 Icosapent Ethyl [Vascepa] 2 gm PO BID 03/12/17 Sertraline HCl [Zoloft] 300 mg PO QPM 03/12/17 Objective - Vital Signs/Intake & Output Reviewed Vital Signs: Yes Vital Signs: Vital Signs x48h Temp Pulse Resp BP Pulse Ox Pulse Ox 03/17/17 16:26 37.3 C 99 20 110/61 93 03/17/17 11:20 94 Intake & Output: Intake & Output 03/14/17 03/15/17 03/16/17 03/17/17 23:59 23:59 23:59 23:59 Intake Total 240 2270 Output Total 9614 5800 Balance -8359 -0242 - Objective General Appearance: positive: No acute distress, Alert, Other (super obese middle aged white male with trach, constant cough, face turns red with cough spasms) Eyes Bilateral: positive: PERRL, EOMI ENT: positive: Pharynx nml Neck: positive: Trachea midline (with tracheostomy). negative: Stiff neck Respiratory: positive: Chest non-tender (huge), Wheezes, Rhonchi Cardiovascular: positive: Regular rate & rhythm. negative: Gallop/S4, Friction rub Abdomen: positive: Nml bowel sounds, Other (huge panus, can't tell about masses bc too large). negative: Guarding, Rebound Skin: positive: Warm, Dry Extremities: positive: Pedal edema, Other (legs too large and weak to move off bed but can move them) Neurologic/Psychiatric: positive: Oriented x3, CN's nml (2-12), Motor nml (but too weak), Weakness, Depressed mood/affect. negative: Facial droop, Slurred/ abnml speech - Lab Results Fish Bones: 03/17/17 05:25 03/17/17 05:25 Other Labs: Lab Results x24hrs 03/17/17 03/17/17 03/17/17 Range/Units 16:52 11:36 07:29 WBC (4.8-10.8) x10^3/uL RBC (4.70-6.10) 10^6/uL Hgb (14.0-18.0) g/dL Hct (42.0-52.0) % MCV (80.0-94.0) fL MCH (27.0-31.0) pg MCHC (32.0-36.0) g/dL RDW (12.0-15.0) % Plt Count (130-450) 10^3/uL MPV (7.4-11.4) fL Neut # (1.5-6.6) 10^3/uL Lymph # (1.5-3.5) 10^3/uL [place] # (0.0-1.0) 10^3/uL Eos # (0.0-0.7) 10^3/uL Baso # (0.0-0.1) 10^3/uL Absolute Nucleated RBC x10^3/uL Nucleated RBCs /100WBC Sodium (135-145) mmol/L Potassium (3.5-5.0) mmol/L Chloride (101-111) mmol/L Carbon Dioxide (21-32) mmol/L Anion Gap (6-13) BUN (6-20) mg/dL Creatinine (0.6-1.2) mg/dL Estimated GFR (MDRD) (>89) Glucose (70-100) mg/dL POC Whole Bld Glucose 212 H 245 H 225 H (70 - 100) mg/dL Calcium (8.5-10.3) mg/dL 03/17/17 03/17/17 03/16/17 Range/Units 05:25 05:25 20:28 WBC 10.3 (4.8-10.8) x10^3/uL RBC 4.10 L (4.70-6.10) 10^6/uL Hgb 12.1 L (14.0-18.0) g/dL Hct 36.0 L (42.0-52.0) % MCV 87.9 (80.0-94.0) fL MCH 29.6 (27.0-31.0) pg MCHC 33.7 (32.0-36.0) g/dL RDW 13.7 (12.0-15.0) % Plt Count 268 (130-450) 10^3/uL MPV 8.0 (7.4-11.4) fL Neut # 7.1 H (1.5-6.6) 10^3/uL Lymph # 1.8 (1.5-3.5) 10^3/uL [place] # 1.0 (0.0-1.0) 10^3/uL Eos # 0.4 (0.0-0.7) 10^3/uL Baso # 0.1 (0.0-0.1) 10^3/uL Absolute Nucleated RBC 0.01 x10^3/uL Nucleated RBCs 0.1 /100WBC Sodium 137 (135-145) mmol/L Potassium 4.3 (3.5-5.0) mmol/L Chloride 91 L (101-111) mmol/L Carbon Dioxide 38 H (21-32) mmol/L Anion Gap 8.0 (6-13) BUN 28 H (6-20) mg/dL Creatinine 0.9 (0.6-1.2) mg/dL Estimated GFR (MDRD) 87 L (>89) Glucose 235 H (70-100) mg/dL POC Whole Bld Glucose 273 H (70 - 100) mg/dL Calcium 9.0 (8.5-10.3) mg/dL Assessment/Plan - Problem List (1) Pneumonia Impression: HCAP? Associated with trach in place, in ad out of hospital, afib blood C&S neg after 1 day zosyn and levaquin (po) Day #2 Qualifiers: Pneumonia type: due to unspecified organism Laterality: left Lung location: lower lobe of lung Qualified Code(s): J18.1 - Lobar pneumonia, unspecified organism (2) Atrial fibrillation with RVR Impression: that was his problem last week with last admit. now rate is controlled and sinus. on new cardizem cd. check EKG in am (3) HTN (hypertension), benign Impression: 110 to 120's. controlled. (4) Diabetes type 2, uncontrolled Impression: he is on lantus 76 units and 40 units of novolog ac tid and still has glucose in 200's he is also on metformin at home, but not here. will resume. 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 leaves him immobile for now. [facility] does not work with his insurance plan so we will look for aother rehab facility. (6) Fracture of distal end of tibia Impression: I spoke to Dr. Garcia in the hallway. right now just wants a film checked. still in CAM boot. pain is not controlled so I have increased his [place] 10/325 to 2 q4hr pr from 1. Qualifiers: Encounter type: subsequent encounter Fracture type: closed Fracture alignment: nondisplaced Laterality: right Fracture healing: with routine healing
[2017-03-17] MEDS: ATORVASTATIN 10 MG TABLET PO SCH (21:04)
[2017-03-17] MEDS: GABAPENTIN 100 MG CAPSULE PO SCH (21:05)
[2017-03-17] MEDS: SERTRALINE 50 MG TABLET PO SCH (21:06)
[2017-03-17] MEDS: INSULIN GLARGINE 300 UNIT/3 ML PEN SUBQ SCH (21:10)
--- NOTE | 2017-03-17 21:18 | XRAY Preliminary Report ---
Exam: XR Tib/Fib RT IMPRESSION: 1. Recent right fibular neck nondisplaced fracture. 2. Oblique fracture extending from distal right tibial metadiaphyseal junction (posterior contour) to anteromedial distal articular surface. Mild displacement has developed along the posterior aspect of distal tibial fracture. Consider ankle CT if further characterization is clinically warranted. [facility] SITE ID: [id number]
--- NOTE | 2017-03-17 21:21 | XRAY Report ---
EXAM: RIGHT TIBIA/FIBULA RADIOGRAPHY EXAM DATE: 03/17/2017 08:40 PM. CLINICAL HISTORY: Followup of his fracture from last week. COMPARISON: Right knee and right ankle series 03/11/2017. TECHNIQUE: 2 views. FINDINGS: Bones: Recent fibular neck fracture is better demonstrated on present tibia-fibula series. Oblique fracture extending from distal right tibial metadiaphyseal junction (posterior contour) to an teromedial distal articular surface. Mild displacement has developed along the posterior aspect of di stal tibial fracture. Joints: Advanced tricompartmental right knee degenerative changes. Soft Tissues: Normal. No soft tissue swelling. IMPRESSION: 1. Recent right fibular neck nondisplaced fracture. 2. Oblique fracture extending from distal right tibial metadiaphyseal junction (posterior contour) to anteromedial distal articular surface. Mild displacement has developed along the posterior aspect of distal tibial fracture. Consider ankle CT if further characterization is clinically warranted. [facility] Referring Provider Line: [phone] SITE ID: [id number]
[2017-03-18] MEDS: PIPERACILLIN/TAZOBACTAM 4.5 GM in SODIUM CHLORIDE 0.9% MINIBAG 100 ML IV SCH ×4 (00:14→17:35)
[2017-03-18] MEDS: HYDROcod/ACETAM 10 MG/325 MG TABLET PO PRN ×4 (00:15→18:47)
[2017-03-18] MEDS: SODIUM CHLORIDE FLUSH 0.9% 10 ML SYRINGE IVP SCH ×4 (00:15→22:38)
[2017-03-18 06:07] LABS: BASOPHILS # (AUTO) 0.1 10^3/uL (0.0-0.1); BASOPHILS % (AUTO) 0.6 %; EOSINOPHILS # (AUTO) 0.4 10^3/uL (0.0-0.7); EOSINOPHILS % (AUTO) 3.3 %; HCT - HEMATOCRIT 37.1 % (42.0-52.0); HGB - HEMOGLOBIN 12.3 g/dL (14.0-18.0); LYMPHOCYTES # (AUTO) 2.1 10^3/uL (1.5-3.5); LYMPHOCYTES % (AUTO) 20.1 %; MEAN CORPUSCULAR HEMOGLOBIN 29.2 pg (27.0-31.0); MEAN CORPUSCULAR HGB CONC 33.1 g/dL (32.0-36.0); MEAN CORPUSCULAR VOLUME 88.3 fL (80.0-94.0); MEAN PLATELET VOLUME 8.1 fL (7.4-11.4); MONOCYTES # (AUTO) 0.9 10^3/uL (0.0-1.0); MONOCYTES % (AUTO) 8.3 %; NEUTROPHILS # (AUTO) 7.2 10^3/uL (1.5-6.6); NEUTROPHILS % (AUTO) 67.7 %; NUCLEATED RED BLOOD CELLS AUTO 0.1 /100WBC; RED CELL DISTRIBUTION WIDTH 13.7 % (12.0-15.0); UNCORRECTED WHITE BLOOD COUNT 10.6 x10^3/uL; WHITE BLOOD COUNT 10.6 x10^3/uL (4.8-10.8)
[2017-03-18 06:35] LABS: CALCIUM 8.9 mg/dL (8.5-10.3); CREATININE 1.1 mg/dL (0.6-1.2); POTASSIUM 4.8 mmol/L (3.5-5.0)
[2017-03-18] MEDS: ENOXAPARIN 40 MG/0.4 ML SYRINGE SUBQ SCH (08:11)
[2017-03-18] MEDS: DOCUSATE SODIUM 250 MG CAPSULE PO SCH (08:12)
[2017-03-18] MEDS: MULTIVITAMIN TABLET PO SCH (08:12)
[2017-03-18] MEDS: SACCHAROMYCES BOULARDII 250 MG CAPSULE PO SCH ×2 (08:12→16:54)
[2017-03-18] MEDS: ASPIRIN CHEW 81 MG TABLET PO SCH (08:13)
[2017-03-18] MEDS: levoFLOXacin 250 MG TABLET PO SCH (08:13)
[2017-03-18] MEDS: FENOFIBRATE 48 MG TABLET PO SCH (08:14)
[2017-03-18] MEDS: diltiaZEM CD 120 MG CAPSULE PO SCH ×2 (08:14→21:24)
[2017-03-18] MEDS: LISINOPRIL 5 MG TABLET PO SCH ×2 (08:14→21:23)
[2017-03-18] MEDS: OMEGA-3 ACID ETHYL ESTERS 1 GM CAPSULE PO SCH ×2 (08:15→21:20)
[2017-03-18] MEDS: POLYETHYLENE GLYCOL 3350 17 GM PACKET PO SCH (08:15)
[2017-03-18] MEDS: SENNA 8.6 MG TABLET PO SCH (08:15)
[2017-03-18] MEDS: FUROSEMIDE 40 MG TABLET PO SCH (08:15)
[2017-03-18] MEDS: INSULIN ASPART 300 UNIT/3 ML PEN SUBQ SCH ×5 (08:22→21:17)
[2017-03-18 08:40] LABS: ABG PH 7.43 (7.35-7.45)
[2017-03-18 08:47] LABS: ABG BASE EXCESS 12.4 mmol/L (-2.0-3.0); ABG HCO3 39.1 mmol/L (22.0-26.0); ABG PCO2 60 mmHg (34-45); ABG PO2 84 mmHg (80-100)
[2017-03-18 08:48] LABS: ABG OXYGEN SATURATION 96 % (94-98)
[2017-03-18 08:49] LABS: ABG SITE OF DRAW RIGHT RADIAL; ALLEN TEST POSITIVE
[2017-03-18 08:51] LABS: ABG O2 DEVICE VENTILATOR
[2017-03-18 08:52] LABS: ABG TCO2 40.9 MMOL/L (21.0-29.0)
--- NOTE | 2017-03-18 15:58 | PROVIDER PROGRESS NOTE ---
Subjective - Prog Note Date Prog Note Date: 03/18/17 Prog Note Time: 15:55 - Subjective Pt reports feeling: No change Subjective: His pain is controlled with 2 tablets every 4 hours. But he would like the option of doing one tablet versus 2 at his discretion. He wonders if one of the aides could help him. He works on his computer and then has to write things down but he's not very good at writing with his left hand. He usually uses his mother or a friend to help him. He is in the midst of selling something. He sold something on [employer] the day he broke his leg, the customer has given him the money, but he can't get it to the customer yet. He is BMP showed a rising CO2 level. So I got a blood gas. He does have an elevated PCO2 to 60. Current Medications - Current Medications Current Medications: Active Medications Acetaminophen/Hydrocodone Bitart ([place] 10 Mg/325 Mg) 1 tab PO Q4HR PRN PRN Reason: PAIN Acetaminophen/Hydrocodone Bitart ([place] 10 Mg/325 Mg) 2 tab PO Q4HR PRN PRN Reason: PAIN Aspirin ([place] Aspirin) 81 mg PO DAILY [facility] Last Admin: 03/18/17 08:13 Dose: 81 mg Atorvastatin Calcium (Lipitor) 10 mg PO QPM [facility] Last Admin: 03/17/17 21:04 Dose: 10 mg Baclofen (Lioresal) 10 mg PO TID PRN PRN Reason: Cramp Last Admin: 03/17/17 00:30 Dose: 10 mg Diltiazem HCl (Cardizem Cd) 120 mg PO BID [facility] Last Admin: 03/18/17 08:14 Dose: 120 mg Docusate Sodium (Colace 250mg Capsule) 250 - 500 mg PO DAILY [facility] Last Admin: 03/18/17 08:12 Dose: 250 mg Enoxaparin Sodium (Lovenox) 40 mg SUBQ DAILY [facility] Last Admin: 03/18/17 08:11 Dose: 40 mg Fenofibrate (Tricor) 144 mg PO DAILY [facility] Last Admin: 03/18/17 08:14 Dose: 144 mg Furosemide (Lasix) 80 mg PO DAILY [facility] Last Admin: 03/18/17 08:15 Dose: 80 mg Gabapentin (Neurontin) 200 mg PO QPM [facility] Last Admin: 03/17/17 21:05 Dose: 200 mg Piperacillin Sod/Tazobactam (Sod 4.5 gm/ Sodium Chloride) 100 mls @ 100 mls/hr IV Q6HR [facility] Last Admin: 03/18/17 12:01 Dose: 100 mls/hr Insulin Aspart (Novolog) 40 unit SUBQ TIDWM [facility] Last Admin: 03/18/17 12:01 Dose: 40 unit Insulin Glargine (Lantus Solostar) 76 unit SUBQ QPM [facility] Last Admin: 03/17/17 21:10 Dose: 76 unit Levofloxacin (Levaquin) 750 mg PO DAILY [facility] Last Admin: 03/18/17 08:13 Dose: 750 mg Lisinopril (Zestril) 10 mg PO BID [facility] Last Admin: 03/18/17 08:14 Dose: 10 mg Multivitamins (Theragran) 1 tab PO DAILYWM [facility] Last Admin: 03/18/17 08:12 Dose: 1 tab Qodiz-6-Hizo Ethyl Esters (Lovaza) 2 gm PO BID [facility] Last Admin: 03/18/17 08:15 Dose: 2 gm Polyethylene Glycol (Miralax) 17 gm PO DAILY [facility] Last Admin: 03/18/17 08:15 Dose: Not Given Saccharomyces Boulardii (Florastor) 250 mg PO BIDWM [facility] Last Admin: 03/18/17 08:12 Dose: 250 mg Senna (Senokot) 8.6 - 17.2 mg PO DAILY [facility] Last Admin: 03/18/17 08:15 Dose: Not Given Sertraline HCl (Zoloft) 300 mg PO QPM [facility] Last Admin: 03/17/17 21:06 Dose: 300 mg Sodium Chloride (Normal Saline Flush 0.9%) 10 ml IVP PRN PRN PRN Reason: NEEDED PER PROVIDER ORDERS Sodium Chloride (Normal Saline Flush 0.9%) 10 ml IVP Q8HR [facility] Last Admin: 03/18/17 12:01 Dose: 10 ml Insulin Glargine,Hum.rec.anlog [Lantus Solostar] 76 unit SQ QPM 03/20/13 Lisinopril 10 mg PO BID 03/20/13 Lovastatin 40 mg PO QPM 03/20/13 Multivitamin [Multivitamins] 1 each PO DAILY 03/20/13 metFORMIN [Glucophage] 1,000 mg PO BIDWM 03/20/13 Fenofibrate 160 mg PO DAILY 06/10/14 Aspirin 81 mg PO DAILY 10/04/16 HYDROcodone/ACET 10/325 [[place] 10 mg/325 mg] 1 tab PO QID 10/04/16 Insulin Aspart [Novolog Flexpen] 40 unit SUBQ TIDWM 10/04/16 Furosemide [Lasix] 80 mg PO DAILY 03/11/17 Gabapentin 100 - 200 mg PO QPM 03/11/17 Icosapent Ethyl [Vascepa] 2 gm PO BID 03/12/17 Sertraline HCl [Zoloft] 300 mg PO QPM 03/12/17 Objective - Vital Signs/Intake & Output Reviewed Vital Signs: Yes Vital Signs: Vital Signs x48h Temp Pulse Resp BP Pulse Ox 03/18/17 09:03 36.9 C 89 24 99/62 89 L Intake & Output: Intake & Output 03/15/17 03/16/17 03/17/17 03/18/17 23:59 23:59 23:59 23:59 Intake Total 240 2920 1540 Output Total 2475 6075 2800 Balance -7481 -9538 -8940 - Objective General Appearance: positive: No acute distress, Alert, Other Eyes Bilateral: positive: PERRL Neck: positive: Other (tracheostomy, less sputum today but still productive). negative: Stiff neck Respiratory: positive: Chest non-tender, Rhonchi. negative: Wheezes, Rales Cardiovascular: positive: Regular rate & rhythm. negative: Gallop/S4, Friction rub Abdomen: positive: Non-tender, Nml bowel sounds, Other (huge huge panus). negative: Guarding, Rebound Skin: positive: Warm, Dry Extremities: positive: Other (large large legs, right CAM boot on. no edema) Neurologic/Psychiatric: positive: Oriented x3, CN's nml (2-12), Depressed mood/ affect. negative: Motor nml (right body is 3- to 2+ and left is 5+ but will spontaneously move right arm to gesticulate with speaking) - Lab Results Fish Bones: 03/18/17 05:34 03/18/17 05:34 Other Labs: Lab Results x24hrs 03/18/17 03/18/17 03/18/17 Range/Units 11:34 08:23 08:21 WBC (4.8-10.8) x10^3/uL RBC (4.70-6.10) 10^6/uL Hgb (14.0-18.0) g/dL Hct (42.0-52.0) % MCV (80.0-94.0) fL MCH (27.0-31.0) pg MCHC (32.0-36.0) g/dL RDW (12.0-15.0) % Plt Count (130-450) 10^3/uL MPV (7.4-11.4) fL Neut # (1.5-6.6) 10^3/uL Lymph # (1.5-3.5) 10^3/uL [place] # (0.0-1.0) 10^3/uL Eos # (0.0-0.7) 10^3/uL Baso # (0.0-0.1) 10^3/uL Absolute Nucleated RBC x10^3/uL Nucleated RBCs /100WBC Bld Gas Analysis Time 0823 Sample Site RIGHT RADIAL ABG pH 7.43 (7.35-7.45) ABG pCO2 60 H* (34-45) mmHg ABG pO2 84 (80-100) mmHg ABG HCO3 39.1 H (22.0-26.0) mmol/L ABG Total CO2 40.9 H* (21.0-29.0) MMOL/L ABG O2 Saturation 96 (94-98) % ABG Base Excess 12.4 H (-2.0-3.0) mmol/L Avinash Test POSITIVE O2 Delivery Device VENTILATOR O2 Liters/Min 4.00 LPM Sodium (135-145) mmol/L Potassium (3.5-5.0) mmol/L Chloride (101-111) mmol/L Carbon Dioxide (21-32) mmol/L Anion Gap (6-13) BUN (6-20) mg/dL Creatinine (0.6-1.2) mg/dL Estimated GFR (MDRD) (>89) Glucose (70-100) mg/dL POC Whole Bld Glucose 244 H 236 H (70 - 100) mg/dL Calcium (8.5-10.3) mg/dL 03/18/17 03/18/17 03/17/17 Range/Units 05:34 05:34 20:32 WBC 10.6 (4.8-10.8) x10^3/uL RBC 4.20 L (4.70-6.10) 10^6/uL Hgb 12.3 L (14.0-18.0) g/dL Hct 37.1 L (42.0-52.0) % MCV 88.3 (80.0-94.0) fL MCH 29.2 (27.0-31.0) pg MCHC 33.1 (32.0-36.0) g/dL RDW 13.7 (12.0-15.0) % Plt Count 273 (130-450) 10^3/uL MPV 8.1 (7.4-11.4) fL Neut # 7.2 H (1.5-6.6) 10^3/uL Lymph # 2.1 (1.5-3.5) 10^3/uL [place] # 0.9 (0.0-1.0) 10^3/uL Eos # 0.4 (0.0-0.7) 10^3/uL Baso # 0.1 (0.0-0.1) 10^3/uL Absolute Nucleated RBC 0.01 x10^3/uL Nucleated RBCs 0.1 /100WBC Bld Gas Analysis Time Sample Site ABG pH (7.35-7.45) ABG pCO2 (34-45) mmHg ABG pO2 (80-100) mmHg ABG HCO3 (22.0-26.0) mmol/L ABG Total CO2 (21.0-29.0) MMOL/L ABG O2 Saturation (94-98) % ABG Base Excess (-2.0-3.0) mmol/L Avinash Test O2 Delivery Device O2 Liters/Min LPM Sodium 135 (135-145) mmol/L Potassium 4.8 (3.5-5.0) mmol/L Chloride 88 L (101-111) mmol/L Carbon Dioxide 40 H* (21-32) mmol/L Anion Gap 7.0 (6-13) BUN 26 H (6-20) mg/dL Creatinine 1.1 (0.6-1.2) mg/dL Estimated GFR (MDRD) 69 L (>89) Glucose 220 H (70-100) mg/dL POC Whole Bld Glucose 217 H (70 - 100) mg/dL Calcium 8.9 (8.5-10.3) mg/dL 03/17/17 Range/Units 16:52 WBC (4.8-10.8) x10^3/uL RBC (4.70-6.10) 10^6/uL Hgb (14.0-18.0) g/dL Hct (42.0-52.0) % MCV (80.0-94.0) fL MCH (27.0-31.0) pg MCHC (32.0-36.0) g/dL RDW (12.0-15.0) % Plt Count (130-450) 10^3/uL MPV (7.4-11.4) fL Neut # (1.5-6.6) 10^3/uL Lymph # (1.5-3.5) 10^3/uL [place] # (0.0-1.0) 10^3/uL Eos # (0.0-0.7) 10^3/uL Baso # (0.0-0.1) 10^3/uL Absolute Nucleated RBC x10^3/uL Nucleated RBCs /100WBC Bld Gas Analysis Time Sample Site ABG pH (7.35-7.45) ABG pCO2 (34-45) mmHg ABG pO2 (80-100) mmHg ABG HCO3 (22.0-26.0) mmol/L ABG Total CO2 (21.0-29.0) MMOL/L ABG O2 Saturation (94-98) % ABG Base Excess (-2.0-3.0) mmol/L Avinash Test O2 Delivery Device O2 Liters/Min LPM Sodium (135-145) mmol/L Potassium (3.5-5.0) mmol/L Chloride (101-111) mmol/L Carbon Dioxide (21-32) mmol/L Anion Gap (6-13) BUN (6-20) mg/dL Creatinine (0.6-1.2) mg/dL Estimated GFR (MDRD) (>89) Glucose (70-100) mg/dL POC Whole Bld Glucose 212 H (70 - 100) mg/dL Calcium (8.5-10.3) mg/dL Assessment/Plan - Problem List (1) Pneumonia Impression: HCAP? Associated with trach in place, in ad out of hospital, afib blood C&S neg after 2 day zosyn and levaquin (po) Day #3 Qualifiers: Pneumonia type: due to unspecified organism Laterality: left Lung location: lower lobe of lung Qualified Code(s): J18.1 - Lobar pneumonia, unspecified organism (2) Atrial fibrillation with RVR Impression: that was his problem last week with last admit. now rate is controlled and sinus. on new cardizem cd. EKG ordered to verify rhythm staying stable (3) HTN (hypertension), benign Impression: 99 to 110 systolic. low. but controlled. (4) Diabetes type 2, uncontrolled Impression: he is on lantus 76 units and 40 units of novolog ac tid and still has glucose in 200's he is also on metformin at home, but not here. I resumed but bc in the time frame of a CT with contrast, still being held. He is out >48 hours, will resume again. Qualifiers: Diabetes mellitus halfway insulin use: with halfway use (5) Super obesity Impression: and residual hemiplegia from old subarachnoid hemorrhage. leaves him immobile for now. [facility] does not work with his insurance plan so we will look for ther rehab facility. (6) Fracture of distal end of tibia Impression: I spoke to Dr. Garcia in the hallway 03/17. right now just wanted a film checked. still in CAM boot. I checked film and there is a change. will let him know. pain is not controlled so I have increased his [place] 10/325 to 2 q4hr pr from 1 but will change again to allow more leeway at his request. Qualifiers: Encounter type: subsequent encounter Fracture type: closed Fracture alignment: nondisplaced Laterality: right Fracture healing: with routine healing
[2017-03-18] MEDS: SODIUM CHLORIDE FLUSH 0.9% 10 ML SYRINGE IVP PRN (17:36)
[2017-03-18] MEDS: INSULIN GLARGINE 300 UNIT/3 ML PEN SUBQ SCH (21:17)
[2017-03-18] MEDS: ATORVASTATIN 10 MG TABLET PO SCH (21:19)
[2017-03-18] MEDS: GABAPENTIN 100 MG CAPSULE PO SCH (21:19)
[2017-03-18] MEDS: SERTRALINE 50 MG TABLET PO SCH (21:21)
[2017-03-19] MEDS: PIPERACILLIN/TAZOBACTAM 4.5 GM in SODIUM CHLORIDE 0.9% MINIBAG 100 ML IV SCH ×5 (00:42→23:54)
[2017-03-19] MEDS: HYDROcod/ACETAM 10 MG/325 MG TABLET PO PRN ×5 (03:49→22:09)
[2017-03-19] MEDS: SODIUM CHLORIDE FLUSH 0.9% 10 ML SYRINGE IVP SCH ×3 (05:31→22:09)
[2017-03-19 06:08] LABS: BASOPHILS # (AUTO) 0.1 10^3/uL (0.0-0.1); BASOPHILS % (AUTO) 0.9 %; EOSINOPHILS # (AUTO) 0.5 10^3/uL (0.0-0.7); EOSINOPHILS % (AUTO) 4.3 %; HCT - HEMATOCRIT 36.4 % (42.0-52.0); HGB - HEMOGLOBIN 12.1 g/dL (14.0-18.0); LYMPHOCYTES # (AUTO) 2.3 10^3/uL (1.5-3.5); LYMPHOCYTES % (AUTO) 21.8 %; MEAN CORPUSCULAR HEMOGLOBIN 29.2 pg (27.0-31.0); MEAN CORPUSCULAR HGB CONC 33.3 g/dL (32.0-36.0); MEAN CORPUSCULAR VOLUME 87.8 fL (80.0-94.0); MEAN PLATELET VOLUME 8.2 fL (7.4-11.4); MONOCYTES % (AUTO) 9.1 %; NEUTROPHILS # (AUTO) 6.8 10^3/uL (1.5-6.6); NEUTROPHILS % (AUTO) 63.9 %; RED BLOOD COUNT 4.14 10^6/uL (4.70-6.10); RED CELL DISTRIBUTION WIDTH 13.5 % (12.0-15.0); UNCORRECTED WHITE BLOOD COUNT 10.6 x10^3/uL; WHITE BLOOD COUNT 10.6 x10^3/uL (4.8-10.8)
[2017-03-19 06:34] LABS: CALCIUM 8.9 mg/dL (8.5-10.3); CREATININE 1.3 mg/dL (0.6-1.2); POTASSIUM 4.3 mmol/L (3.5-5.0)
--- NOTE | 2017-03-19 07:34 | PROVIDER PROGRESS NOTE ---
Subjective - Prog Note Date Prog Note Date: 03/19/17 Prog Note Time: 13:17 - Subjective Pt reports feeling: No change Subjective: His main complaints center around pain. Not happy about how he is getting his pain medication only rediscuss this. 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 He says he uses the disposable tray can't because their convenient, and he does not want his tracheostomy enlarged for his size. The ENT who took care of and gave them strict instructions so he is not enthusiastic about changing any of those instructions Denies chest pain, new shortness of breath, abdominal pain Pain is centered around the right ankle and his left hip is always telling him from a chronic hip injury since childhood. He laments that he will get comfortable, no pain, and then it is time for him to be rotated for ulcer prevention and his body pain starts all over again Current Medications - Current Medications Current Medications: Active Medications Acetaminophen/Hydrocodone Bitart (Mcadoo 10 Mg/325 Mg) 1 tab PO Q4HR PRN PRN Reason: PAIN Last Admin: 03/19/17 03:49 Dose: 1 tab Acetaminophen/Hydrocodone Bitart (Mcadoo 10 Mg/325 Mg) 2 tab PO Q4HR PRN PRN Reason: PAIN Last Admin: 03/18/17 18:47 Dose: 2 tab Aspirin ([facility] Jhony Aspirin) 81 mg PO DAILY [facility] Last Admin: 03/18/17 08:13 Dose: 81 mg Atorvastatin Calcium (Lipitor) 10 mg PO QPM [facility] Last Admin: 03/18/17 21:19 Dose: 10 mg Baclofen (Lioresal) 10 mg PO TID PRN PRN Reason: Cramp Last Admin: 03/17/17 00:30 Dose: 10 mg Diltiazem HCl (Cardizem Cd) 120 mg PO BID [facility] Last Admin: 03/18/17 21:24 Dose: Not Given Docusate Sodium (Colace 250mg Capsule) 250 - 500 mg PO DAILY [facility] Last Admin: 03/18/17 08:12 Dose: 250 mg Enoxaparin Sodium (Lovenox) 40 mg SUBQ DAILY [facility] Last Admin: 03/18/17 08:11 Dose: 40 mg Fenofibrate (Tricor) 144 mg PO DAILY [facility] Last Admin: 03/18/17 08:14 Dose: 144 mg Furosemide (Lasix) 80 mg PO DAILY [facility] Last Admin: 03/18/17 08:15 Dose: 80 mg Gabapentin (Neurontin) 200 mg PO QPM [facility] Last Admin: 03/18/17 21:19 Dose: 200 mg Piperacillin Sod/Tazobactam (Sod 4.5 gm/ Sodium Chloride) 100 mls @ 100 mls/hr IV Q6HR [facility] Last Admin: 03/19/17 05:30 Dose: 100 mls/hr Sodium Chloride (Normal Saline 0.9%) 1,000 mls @ 125 mls/hr IV .Q8H [facility] Stop: 03/19/17 23:59 Insulin Aspart (Novolog) 40 unit SUBQ TIDWM [facility] Last Admin: 03/18/17 16:54 Dose: 40 unit Insulin Aspart (Novolog) 1 - 9 unit SUBQ 0800,1200,1700,2100 [facility] PRN Reason: Protocol Last Admin: 03/18/17 21:17 Dose: 3 unit Insulin Glargine (Lantus Solostar) 76 unit SUBQ QPM [facility] Last Admin: 03/18/17 21:17 Dose: 76 unit Levofloxacin (Levaquin) 750 mg PO DAILY [facility] Last Admin: 03/18/17 08:13 Dose: 750 mg Lisinopril (Zestril) 10 mg PO BID [facility] Last Admin: 03/18/17 21:23 Dose: Not Given Multivitamins (Theragran) 1 tab PO DAILYWM [facility] Last Admin: 03/18/17 08:12 Dose: 1 tab Jtnuo-4-Anre Ethyl Esters (Lovaza) 2 gm PO BID [facility] Last Admin: 03/18/17 21:20 Dose: 2 gm Polyethylene Glycol (Miralax) 17 gm PO DAILY [facility] Last Admin: 03/18/17 08:15 Dose: Not Given Saccharomyces Boulardii (Florastor) 250 mg PO BIDWM [facility] Last Admin: 03/18/17 16:54 Dose: 250 mg Senna (Senokot) 8.6 - 17.2 mg PO DAILY [facility] Last Admin: 03/18/17 08:15 Dose: Not Given Sertraline HCl (Zoloft) 300 mg PO QPM [facility] Last Admin: 03/18/17 21:21 Dose: 300 mg Sodium Chloride (Normal Saline Flush 0.9%) 10 ml IVP PRN PRN PRN Reason: NEEDED PER PROVIDER ORDERS Last Admin: 03/18/17 17:36 Dose: 10 ml Sodium Chloride (Normal Saline Flush 0.9%) 10 ml IVP Q8HR [facility] Last Admin: 03/19/17 05:31 Dose: 10 ml Insulin Glargine,Hum.rec.anlog [Lantus Solostar] 76 unit SQ QPM 03/20/13 Lisinopril 10 mg PO BID 03/20/13 Lovastatin 40 mg PO QPM 03/20/13 Multivitamin [Multivitamins] 1 each PO DAILY 03/20/13 metFORMIN [Glucophage] 1,000 mg PO BIDWM 03/20/13 Fenofibrate 160 mg PO DAILY 06/10/14 Aspirin 81 mg PO DAILY 10/04/16 HYDROcodone/ACET 10/325 [Mcadoo 10 mg/325 mg] 1 tab PO QID 10/04/16 Insulin Aspart [Novolog Flexpen] 40 unit SUBQ TIDWM 10/04/16 Furosemide [Lasix] 80 mg PO DAILY 03/11/17 Gabapentin 100 - 200 mg PO QPM 03/11/17 Icosapent Ethyl [Vascepa] 2 gm PO BID 03/12/17 Sertraline HCl [Zoloft] 300 mg PO QPM 03/12/17 Objective - Vital Signs/Intake & Output Reviewed Vital Signs: Yes Vital Signs: Vital Signs x48h Temp Pulse Resp BP Pulse Ox 03/19/17 00:07 37.1 C 89 20 107/72 98 Intake & Output: Intake & Output 03/16/17 03/17/17 03/18/17 03/19/17 23:59 23:59 23:59 23:59 Intake Total 240 2920 3116 400 Output Total 7906 0122 9796 1221 Balance -2235 -3155 -934 -825 - Objective General Appearance: positive: No acute distress, Alert, Other (super obese white male with swanson adn mustache) Eyes Bilateral: positive: PERRL, EOMI ENT: positive: Other (poor dentiton) Neck: negative: Stiff neck, Carotid bruit Respiratory: positive: Chest non-tender, Rhonchi. negative: Wheezes, Rales Cardiovascular: positive: Regular rate & rhythm. negative: Gallop/S4, Friction rub Abdomen: positive: Non-tender, Nml bowel sounds, Other (huge panus). negative: Guarding, Rebound Skin: positive: Warm, Dry, Pallor Extremities: positive: Pedal edema, Other (the skin between the toes of the right foot is white, and peeling. skin below 2nd toe especially involved since that is where sutures are. cracks in the macerated skin in multiple web spaces but no redness or heat or drainage. skin of right heel of foot soft, white, and ready to fall off ~10 cm) Neurologic/Psychiatric: positive: Oriented x3, Other (right body with diminished strength from old hemorrhage, left body nml.) - Lab Results Fish Bones: 03/19/17 05:30 03/19/17 05:30 Other Labs: Lab Results x24hrs 03/19/17 03/19/17 03/18/17 Range/Units 05:30 05:30 21:04 WBC 10.6 (4.8-10.8) x10^3/uL RBC 4.14 L (4.70-6.10) 10^6/uL Hgb 12.1 L (14.0-18.0) g/dL Hct 36.4 L (42.0-52.0) % MCV 87.8 (80.0-94.0) fL MCH 29.2 (27.0-31.0) pg MCHC 33.3 (32.0-36.0) g/dL RDW 13.5 (12.0-15.0) % Plt Count 291 (130-450) 10^3/uL MPV 8.2 (7.4-11.4) fL Neut # 6.8 H (1.5-6.6) 10^3/uL Lymph # 2.3 (1.5-3.5) 10^3/uL Duchesne # 1.0 (0.0-1.0) 10^3/uL Eos # 0.5 (0.0-0.7) 10^3/uL Baso # 0.1 (0.0-0.1) 10^3/uL Absolute Nucleated RBC 0.00 x10^3/uL Nucleated RBCs 0.0 /100WBC Bld Gas Analysis Time Sample Site ABG pH (7.35-7.45) ABG pCO2 (34-45) mmHg ABG pO2 (80-100) mmHg ABG HCO3 (22.0-26.0) mmol/L ABG Total CO2 (21.0-29.0) MMOL/L ABG O2 Saturation (94-98) % ABG Base Excess (-2.0-3.0) mmol/L Avinash Test O2 Delivery Device O2 Liters/Min LPM Sodium 134 L (135-145) mmol/L Potassium 4.3 (3.5-5.0) mmol/L Chloride 86 L (101-111) mmol/L Carbon Dioxide 40 H* (21-32) mmol/L Anion Gap 8.0 (6-13) BUN 25 H (6-20) mg/dL Creatinine 1.3 H (0.6-1.2) mg/dL Estimated GFR (MDRD) 57 L (>89) Glucose 189 H (70-100) mg/dL POC Whole Bld Glucose 190 H (70 - 100) mg/dL Calcium 8.9 (8.5-10.3) mg/dL 03/18/17 03/18/17 03/18/17 Range/Units 16:35 11:34 08:23 WBC (4.8-10.8) x10^3/uL RBC (4.70-6.10) 10^6/uL Hgb (14.0-18.0) g/dL Hct (42.0-52.0) % MCV (80.0-94.0) fL MCH (27.0-31.0) pg MCHC (32.0-36.0) g/dL RDW (12.0-15.0) % Plt Count (130-450) 10^3/uL MPV (7.4-11.4) fL Neut # (1.5-6.6) 10^3/uL Lymph # (1.5-3.5) 10^3/uL Duchesne # (0.0-1.0) 10^3/uL Eos # (0.0-0.7) 10^3/uL Baso # (0.0-0.1) 10^3/uL Absolute Nucleated RBC x10^3/uL Nucleated RBCs /100WBC Bld Gas Analysis Time 0823 Sample Site RIGHT RADIAL ABG pH 7.43 (7.35-7.45) ABG pCO2 60 H* (34-45) mmHg ABG pO2 84 (80-100) mmHg ABG HCO3 39.1 H (22.0-26.0) mmol/L ABG Total CO2 40.9 H* (21.0-29.0) MMOL/L ABG O2 Saturation 96 (94-98) % ABG Base Excess 12.4 H (-2.0-3.0) mmol/L Avinash Test POSITIVE O2 Delivery Device VENTILATOR O2 Liters/Min 4.00 LPM Sodium (135-145) mmol/L Potassium (3.5-5.0) mmol/L Chloride (101-111) mmol/L Carbon Dioxide (21-32) mmol/L Anion Gap (6-13) BUN (6-20) mg/dL Creatinine (0.6-1.2) mg/dL Estimated GFR (MDRD) (>89) Glucose (70-100) mg/dL POC Whole Bld Glucose 184 H 244 H (70 - 100) mg/dL Calcium (8.5-10.3) mg/dL 03/18/17 Range/Units 08:21 WBC (4.8-10.8) x10^3/uL RBC (4.70-6.10) 10^6/uL Hgb (14.0-18.0) g/dL Hct (42.0-52.0) % MCV (80.0-94.0) fL MCH (27.0-31.0) pg MCHC (32.0-36.0) g/dL RDW (12.0-15.0) % Plt Count (130-450) 10^3/uL MPV (7.4-11.4) fL Neut # (1.5-6.6) 10^3/uL Lymph # (1.5-3.5) 10^3/uL Duchesne # (0.0-1.0) 10^3/uL Eos # (0.0-0.7) 10^3/uL Baso # (0.0-0.1) 10^3/uL Absolute Nucleated RBC x10^3/uL Nucleated RBCs /100WBC Bld Gas Analysis Time Sample Site ABG pH (7.35-7.45) ABG pCO2 (34-45) mmHg ABG pO2 (80-100) mmHg ABG HCO3 (22.0-26.0) mmol/L ABG Total CO2 (21.0-29.0) MMOL/L ABG O2 Saturation (94-98) % ABG Base Excess (-2.0-3.0) mmol/L Avinash Test O2 Delivery Device O2 Liters/Min LPM Sodium (135-145) mmol/L Potassium (3.5-5.0) mmol/L Chloride (101-111) mmol/L Carbon Dioxide (21-32) mmol/L Anion Gap (6-13) BUN (6-20) mg/dL Creatinine (0.6-1.2) mg/dL Estimated GFR (MDRD) (>89) Glucose (70-100) mg/dL POC Whole Bld Glucose 236 H (70 - 100) mg/dL Calcium (8.5-10.3) mg/dL Assessment/Plan - Problem List (1) LORENA (acute kidney injury) Impression: new problems this morning. he is not on IVF so may be a po intake issue. on lasix 80 mg a day as maintenance. will give 2 liters of 0.9 NS and repeat BMP this afternoon. (2) Hypercapnia Impression: was present on rising CO2 yesterday am. Blood gas confirmed pCO2 of 60 but his pH was normal. This am CO2 still high. Since he is morbidly obese this may be PAUL but a chronic state for him. (3) Pneumonia Impression: HCAP? Associated with trach in place, in ad out of hospital, afib blood C&S neg after 2 day zosyn and levaquin (po) Day #4 Qualifiers: Pneumonia type: due to unspecified organism Laterality: left Lung location: lower lobe of lung Qualified Code(s): J18.1 - Lobar pneumonia, unspecified organism (4) Atrial fibrillation with RVR Impression: that was his problem last week with last admit. now rate is controlled and sinus. on new cardizem cd but I will lower dose today for lower trend of BP EKG ordered to verify rhythm staying stable and I know it was done yesterday but the scanned copy is not in the EMR. Will verify with RT. (5) HTN (hypertension), benign Impression: Yesterday and today trending lower and associated with LORENA. Will give fluids, hold off on Lasix. Cardizem CD was new from last visit. will decrease from 120 mg po bid to qd. (6) Diabetes type 2, uncontrolled Impression: he is on lantus 76 units and 40 units of novolog ac tid and still has glucose in 200's he is also on metformin at home, but not here. I resumed but bc in the time frame of a CT with contrast, still being held. He was out >48 hours, and metformin resumed again 03/18. Keep this in mind since his LORENA is new. 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 leaves him immobile for now. [facility] does not work with his insurance plan so we will look for [facility]. (8) Fracture of distal end of tibia Impression: I spoke to Dr. Garcia in the hallway 03/17. right now just wanted a film checked. still in CAM boot. I checked film and there is a change. I spoke to him this morning to let him know. pain was not controlled 03/17 so I increased his Mcadoo 10/325 to 2 q4hr prn from 1 but changed again yesterday to allow more leeway of 1 OR 2 tabs at his request. he acknowledges pain is better than 2 days ago but is miscommunicating with RN about levels so doesn't get the dose he wants. We discussed 1 for 4-7 level and 2 for 7-8 level. He needs to say that to RN. (9) Athlete's foot Impression: patient fell and suffered a toe laceration and distal tibia fracture 03/11. Put in splint then a CAM boot. RN removed boot today for Dr. Garcia to review. Has heel maceration Web space between toes macerated with white skin, peeling, athletes foot. Plan: sutures removed by me clean foot well with soap and water dry, dry , dry lamisil oral for 7 days. LFT's were ok earlier this week. check next week. nystatin cream and then powder keep foot to open air Qualifiers: Laterality: bilateral Qualified Code(s): B35.3 - Tinea pedis
[2017-03-19] MEDS: MULTIVITAMIN TABLET PO SCH (08:25)
[2017-03-19] MEDS: INSULIN ASPART 300 UNIT/3 ML PEN SUBQ SCH ×7 (08:25→21:33)
[2017-03-19] MEDS: SODIUM CHLORIDE 0.9% 1,000 ML IV SCH ×2 (08:27→17:23)
[2017-03-19] MEDS: SODIUM CHLORIDE FLUSH 0.9% 10 ML SYRINGE IVP PRN (08:34)
[2017-03-19] MEDS: ASPIRIN CHEW 81 MG TABLET PO SCH (09:38)
[2017-03-19] MEDS: ENOXAPARIN 40 MG/0.4 ML SYRINGE SUBQ SCH (09:38)
[2017-03-19] MEDS: FUROSEMIDE 40 MG TABLET PO SCH (09:38)
[2017-03-19] MEDS: DOCUSATE SODIUM 250 MG CAPSULE PO SCH (09:39)
[2017-03-19] MEDS: FENOFIBRATE 48 MG TABLET PO SCH (09:40)
[2017-03-19] MEDS: levoFLOXacin 250 MG TABLET PO SCH (09:41)
[2017-03-19] MEDS: diltiaZEM CD 120 MG CAPSULE PO SCH (09:41)
[2017-03-19] MEDS: SENNA 8.6 MG TABLET PO SCH (09:41)
[2017-03-19] MEDS: LISINOPRIL 5 MG TABLET PO SCH ×2 (09:41→22:05)
[2017-03-19] MEDS: POLYETHYLENE GLYCOL 3350 17 GM PACKET PO SCH (09:41)
[2017-03-19] MEDS: SACCHAROMYCES BOULARDII 250 MG CAPSULE PO SCH ×2 (09:43→17:22)
[2017-03-19] MEDS: OMEGA-3 ACID ETHYL ESTERS 1 GM CAPSULE PO SCH ×2 (09:43→22:02)
--- NOTE | 2017-03-19 13:58 | CONSULTATION NOTE ---
DATE OF CONSULTATION: 03/19/2017 00:00:00 REQUESTING PROVIDER: REASON FOR CONSULTATION: Right distal tibia fracture. REASON FOR ADMISSION: This patient is a 56-year-old male who is right hemiplegic with a fresh ankle f racture after an event at home where he bent over to reach his toes and clean them and twisted his an kle. He was admitted to the hospital on 03/15/2017. HOSPITAL COURSE: He was admitted to the hospital. He has been in a state of recovery of pneumonia wit h a Cam boot on his right ankle for a distal tibia nonarticular fracture. He has had a fresh set of x -rays done that confirmed the fracture with slight displacement, but not significant. The patient's prior medical history, medications, allergies, are all documented in the hospital note. PHYSICAL EXAMINATION: Physical exam shows this patient to be morbidly obese. He is lying in bed. He d oes not have limb control and he has no pain in his right lower extremity. His boot had been warned a pparently continuously until the nurse and I removed it this morning and the patient was noted to hav e a decubitus forming on his posterior calcaneus and the boot was foul smelling without drainage in t he boot or drainage from the heel. The patient's ankle itself is stable and does not show much in the way of swelling and the patient does not have crepitus, nor does he have gross motion evident at kelsey t site. Upon cleansing of his heel the depths of the decubitus appears to be fairly deep, perhaps cherrie n grade 2 and at least 4 cm in diameter. IMPRESSION: The patient has a stable appearing distal metaphyseal fracture of his right tibia. There is slight displacement evident and slight angulation, but not of significance. The more pressing prob corin now is a decubitus ulcer on the posterior calcaneus. PLAN: For the patient to be out of boot on the air mattress with careful positioning of the leg and f oot to avoid any pressure on that ulcer. It will not be unroofed quite yet and will be treated with p ressure and stress and sheer avoidance. It is likely that the patient's fracture will heal uneventful ly whether it is splinted or not, but the ulcer will be an ongoing problem that will need to be manag ed with wound care. JOB #: [id number] EXT JOB #:[id number]
[2017-03-19] MEDS: NYSTATIN CREAM 15 GM TUBE TOP SCH ×2 (15:03→22:01)
[2017-03-19] MEDS: NYSTATIN POWDER 15 GM TOP SCH ×2 (15:03→22:01)
[2017-03-19 18:24] LABS: CALCIUM 8.7 mg/dL (8.5-10.3); CREATININE 1.3 mg/dL (0.6-1.2); POTASSIUM 4.2 mmol/L (3.5-5.0)
[2017-03-19] MEDS: SERTRALINE 50 MG TABLET PO SCH (21:59)
[2017-03-19] MEDS: ATORVASTATIN 10 MG TABLET PO SCH (21:59)
[2017-03-19] MEDS: INSULIN GLARGINE 300 UNIT/3 ML PEN SUBQ SCH (22:00)
[2017-03-19] MEDS: GABAPENTIN 100 MG CAPSULE PO SCH (22:00)
[2017-03-20] MEDS: SODIUM CHLORIDE FLUSH 0.9% 10 ML SYRINGE IVP PRN ×3 (02:54→12:30)
[2017-03-20] MEDS: HYDROcod/ACETAM 10 MG/325 MG TABLET PO PRN ×5 (03:41→20:25)
[2017-03-20] MEDS: PIPERACILLIN/TAZOBACTAM 4.5 GM in SODIUM CHLORIDE 0.9% MINIBAG 100 ML IV SCH ×3 (05:50→17:10)
[2017-03-20] MEDS: SODIUM CHLORIDE FLUSH 0.9% 10 ML SYRINGE IVP SCH ×3 (05:50→20:25)
--- NOTE | 2017-03-20 08:28 | PROVIDER PROGRESS NOTE ---
Subjective - Prog Note Date Prog Note Date: 03/20/17 Prog Note Time: 08:27 - Subjective Pt reports feeling: No change Subjective: Seen by Dr. Phillips, orthopedics yesterday and today. The splint or boot is not being put on for right now and attempt let the foot air dry. He's also been seen by wound care MAC nurse this morning for the heel ulcer that was starting to develop with a cam boot. The patient himself has no new complaints. Pain is controlled. He is happy with the room fan. Denies cough that is new. Has the same amount of phlegm from his tracheostomy. May be diminishing in amount. Denies chest pain, abdominal pain. Current Medications - Current Medications Current Medications: Active Medications Acetaminophen/Hydrocodone Bitart ([place] 10 Mg/325 Mg) 1 tab PO Q4HR PRN PRN Reason: PAIN Last Admin: 03/19/17 03:49 Dose: 1 tab Acetaminophen/Hydrocodone Bitart ([place] 10 Mg/325 Mg) 2 tab PO Q4HR PRN PRN Reason: PAIN Last Admin: 03/20/17 03:41 Dose: 2 tab Aspirin ([place] Aspirin) 81 mg PO DAILY [facility] Last Admin: 03/19/17 09:38 Dose: 81 mg Atorvastatin Calcium (Lipitor) 10 mg PO QPM [facility] Last Admin: 03/19/17 21:59 Dose: 10 mg Baclofen (Lioresal) 10 mg PO TID PRN PRN Reason: Cramp Last Admin: 03/17/17 00:30 Dose: 10 mg Diltiazem HCl (Cardizem Cd) 120 mg PO DAILY [facility] Docusate Sodium (Colace 250mg Capsule) 250 - 500 mg PO DAILY [facility] Last Admin: 03/19/17 09:39 Dose: 250 mg Enoxaparin Sodium (Lovenox) 40 mg SUBQ DAILY [facility] Last Admin: 03/19/17 09:38 Dose: 40 mg Fenofibrate (Tricor) 144 mg PO DAILY [facility] Last Admin: 03/19/17 09:40 Dose: 144 mg Furosemide (Lasix) 80 mg PO DAILY [facility] Last Admin: 03/19/17 09:38 Dose: 80 mg Gabapentin (Neurontin) 200 mg PO QPM [facility] Last Admin: 03/19/17 22:00 Dose: 200 mg Piperacillin Sod/Tazobactam (Sod 4.5 gm/ Sodium Chloride) 100 mls @ 100 mls/hr IV Q6HR [facility] Last Admin: 03/20/17 05:50 Dose: 100 mls/hr Insulin Aspart (Novolog) 40 unit SUBQ TIDWM [facility] Last Admin: 03/19/17 17:23 Dose: 40 unit Insulin Aspart (Novolog) 2 - 10 unit SUBQ 0800,1200,1700,2100 [facility] PRN Reason: Protocol Last Admin: 03/19/17 21:33 Dose: Not Given Insulin Glargine (Lantus Solostar) 76 unit SUBQ QPM [facility] Last Admin: 03/19/17 22:00 Dose: 76 unit Lamotrigine (Lamictal) 100 mg PO DAILY [facility] Stop: 03/26/17 09:01 Levofloxacin (Levaquin) 750 mg PO DAILY [facility] Last Admin: 03/19/17 09:41 Dose: 750 mg Lisinopril (Zestril) 10 mg PO BID [facility] Last Admin: 03/19/17 22:05 Dose: Not Given Multivitamins (Theragran) 1 tab PO DAILYWM [facility] Last Admin: 03/19/17 08:25 Dose: 1 tab Nystatin (Mycostatin Cream) 1 applic TOP BID [facility] Last Admin: 03/19/17 22:01 Dose: 1 applic Nystatin (Nystop) 1 applic TOP BID [facility] Last Admin: 03/19/17 22:01 Dose: 1 applic Crkki-1-Cdzn Ethyl Esters (Lovaza) 2 gm PO BID [facility] Last Admin: 03/19/17 22:02 Dose: 2 gm Polyethylene Glycol (Miralax) 17 gm PO DAILY [facility] Last Admin: 03/19/17 09:41 Dose: 17 gm Saccharomyces Boulardii (Florastor) 250 mg PO BIDWM [facility] Last Admin: 03/19/17 17:22 Dose: 250 mg Senna (Senokot) 8.6 - 17.2 mg PO DAILY [facility] Last Admin: 03/19/17 09:41 Dose: 8.6 mg Sertraline HCl (Zoloft) 300 mg PO QPM [facility] Last Admin: 03/19/17 21:59 Dose: 300 mg Sodium Chloride (Normal Saline Flush 0.9%) 10 ml IVP PRN PRN PRN Reason: NEEDED PER PROVIDER ORDERS Last Admin: 03/20/17 06:55 Dose: 10 ml Sodium Chloride (Normal Saline Flush 0.9%) 10 ml IVP Q8HR [facility] Last Admin: 03/20/17 05:50 Dose: 10 ml Insulin Glargine,Hum.rec.anlog [Lantus Solostar] 76 unit SQ QPM 03/20/13 Lisinopril 10 mg PO BID 03/20/13 Lovastatin 40 mg PO QPM 03/20/13 Multivitamin [Multivitamins] 1 each PO DAILY 03/20/13 metFORMIN [Glucophage] 1,000 mg PO BIDWM 03/20/13 Fenofibrate 160 mg PO DAILY 06/10/14 Aspirin 81 mg PO DAILY 10/04/16 HYDROcodone/ACET 10/325 [[place] 10 mg/325 mg] 1 tab PO QID 10/04/16 Insulin Aspart [Novolog Flexpen] 40 unit SUBQ TIDWM 10/04/16 Furosemide [Lasix] 80 mg PO DAILY 03/11/17 Gabapentin 100 - 200 mg PO QPM 03/11/17 Icosapent Ethyl [Vascepa] 2 gm PO BID 03/12/17 Sertraline HCl [Zoloft] 300 mg PO QPM 03/12/17 Objective - Vital Signs/Intake & Output Reviewed Vital Signs: Yes Intake & Output: Intake & Output 03/17/17 03/18/17 03/19/17 03/20/17 23:59 23:59 23:59 23:59 Intake Total 2920 3116 5901 997 Output Total 6032 4050 6001 750 [facility] -[phone] - Objective General Appearance: positive: No acute distress, Alert, Other (super obese white male with swanson, mustache,) Eyes Bilateral: positive: PERRL, EOMI ENT: positive: Other (poor dentition) Neck: negative: Lymphadenopathy (R), Lymphadenopathy (L), Stiff neck, Carotid bruit Respiratory: positive: Chest non-tender, Rhonchi. negative: Wheezes, Rales Cardiovascular: positive: Regular rate & rhythm. negative: Gallop/S4, Friction rub Abdomen: positive: Non-tender, Other (hugely obese with large, large panus.). negative: Guarding, Rebound Skin: positive: Warm, Dry Extremities: positive: Pedal edema (mild), Joint swelling (right ankle. tender at tib insertion but not bad), Other (the web space in between the toes for the right foot look much better. dry now. no redness, no heat. the heel skin is now darker but no breakdown. seen by MAC RN) Neurologic/Psychiatric: positive: Oriented x3. negative: Motor nml (right body weakness at 2+ to 3- with left body nml.) - Lab Results Fish Bones: 03/19/17 05:30 03/19/17 18:05 Other Labs: Lab Results x24hrs 03/20/17 03/19/17 03/19/17 Range/Units 07:43 20:32 18:05 Sodium 134 L (135-145) mmol/L Potassium 4.2 (3.5-5.0) mmol/L Chloride 87 L (101-111) mmol/L Carbon Dioxide 40 H* (21-32) mmol/L Anion Gap 7.0 (6-13) BUN 23 H (6-20) mg/dL Creatinine 1.3 H (0.6-1.2) mg/dL Estimated GFR (MDRD) 57 L (>89) Glucose 144 H (70-100) mg/dL POC Whole Bld Glucose 147 H 93 (70 - 100) mg/dL Calcium 8.7 (8.5-10.3) mg/dL 03/19/17 03/19/17 Range/Units 16:27 11:20 Sodium (135-145) mmol/L Potassium (3.5-5.0) mmol/L Chloride (101-111) mmol/L Carbon Dioxide (21-32) mmol/L Anion Gap (6-13) BUN (6-20) mg/dL Creatinine (0.6-1.2) mg/dL Estimated GFR (MDRD) (>89) Glucose (70-100) mg/dL POC Whole Bld Glucose 117 H 191 H (70 - 100) mg/dL Calcium (8.5-10.3) mg/dL Assessment/Plan - Problem List (1) LORENA (acute kidney injury) Impression: new problem on 03/19. he was not on IVF so may be a po intake issue. on lasix 80 mg a day as maintenance. given 2 liters of 0.9 NS and repeat BMP yesterday that afternoon stayed with a creat of 1.3. Suspect it may have been hypotension . meds being adjusted (2) Hypercapnia Impression: was present on rising CO2 03/18 am. Blood gas confirmed pCO2 of 60 but his pH was normal. 6 CO2 still high. Since he is morbidly obese this may be PAUL but a chronic state for him. no new orders for this (3) Pneumonia Impression: HCAP? Associated with trach in place, in ad out of hospital, afib blood C&S neg after 2 day zosyn and levaquin (po) Day #5 Plan for 2 more days then dc abx. From medical perspective may be ready for transition to rehab on 03/22. Qualifiers: Pneumonia type: due to unspecified organism Laterality: left Lung location: lower lobe of lung Qualified Code(s): J18.1 - Lobar pneumonia, unspecified organism (4) Atrial fibrillation with RVR Impression: that was his problem last week with last admit. now rate is controlled and sinus. on new cardizem cd but I lowered dose 03/19 for lower trend of low BP EKG ordered to verify rhythm staying stable and I know it was done yesterday but the scanned copy is not in the EMR. Will verify with RT. Not scanned and in patient chart. he is in AFLUTTER WITH 3:1 BLOCK. Can't do anticoagu bc of previous brain hemorrhage. ASA. amiodarone. (5) HTN (hypertension), benign Impression: Hypotension started 03/18 and still ongoing. So given fluids, cardizem CD dose lowered. Even with that 92-98 systolic this am. He is asymptomatic other than the rise in creat. Anticipate as cardizem long acting wears off will improve. (6) Diabetes type 2, uncontrolled Impression: he is on lantus 76 units and 40 units of novolog ac tid and still had glucose in 200's 48 hours ago. Much better control in last day. he is also on metformin at home, but not here. I resumed but bc in the time frame of a CT with contrast, still being held. He was out >48 hours, and metformin resumed again 03/18. Keep this in mind since his LORENA is new. 191 , 117, 93 yesterday and 184 this am. 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 leaves him immobile for now. [facility] does not work with his insurance plan so social service has list of facilities they have called and have been declined at this time. They continue to call and look for placement. (8) Fracture of distal end of tibia Impression: I spoke to Dr. Garcia in the hallway 03/17. just wanted a film checked. still in CAM boot. I checked film and there is a change. I spoke to him 03/19 to let him know of small choco change. Seen 03/19 and note in chart. As for the patient, pain was not controlled 03/17 so I increased his [place] 10/ 325 to 2 q4hr prn from 1 but changed again yesterday to allow more leeway of 1 OR 2 tabs at his request. he acknowledges pain is better than 2 days ago but is miscommunicating with RN about levels so doesn't get the dose he wants. We discussed 1 for 4-7 level and 2 for 7-8 level. He needs to say that to RN. (9) Athlete's foot Impression: patient fell and suffered a toe laceration and distal tibia fracture 03/11. Put in splint then a CAM boot. RN removed boot 03/[address] Garcia to review. Had heel maceration adn today looks dry and darker but better than that wet, white pruny skin. Web space between toes macerated with white skin, peeling, athletes foot. sutures removed by me Foot cleaned well with soap and water by RN. Kept open to air and had lamisil po started as well as nystatin cream and power. Looks so much better today. Plan: Keep dry, dry , dry lamisil oral for 7 days. LFT's were ok earlier this week. check next week. nystatin cream and then powder to continue keep foot to open air until Dr. Garcia puts on splint. Qualifiers: Laterality: bilateral Qualified Code(s): B35.3 - Tinea pedis (9) Athlete's foot Qualifiers: Laterality: bilateral Qualified Code(s): B35.3 - Tinea pedis
[2017-03-20] MEDS ORDERED: diltiaZEM CD 120 MG CAPSULE PO SCH (09:00)
[2017-03-20] MEDS: INSULIN ASPART 300 UNIT/3 ML PEN SUBQ SCH ×7 (09:19→20:23)
[2017-03-20] MEDS: MULTIVITAMIN TABLET PO SCH (09:21)
[2017-03-20] MEDS: SACCHAROMYCES BOULARDII 250 MG CAPSULE PO SCH ×2 (09:21→16:44)
[2017-03-20] MEDS: ENOXAPARIN 40 MG/0.4 ML SYRINGE SUBQ SCH (09:22)
[2017-03-20] MEDS: FENOFIBRATE 48 MG TABLET PO SCH (09:22)
[2017-03-20] MEDS: DOCUSATE SODIUM 250 MG CAPSULE PO SCH (09:22)
[2017-03-20] MEDS: ASPIRIN CHEW 81 MG TABLET PO SCH (09:22)
[2017-03-20] MEDS: FUROSEMIDE 40 MG TABLET PO SCH (09:23)
[2017-03-20] MEDS: levoFLOXacin 250 MG TABLET PO SCH (09:23)
[2017-03-20] MEDS: lamoTRIgine 100 MG TABLET PO SCH (09:23)
[2017-03-20] MEDS: OMEGA-3 ACID ETHYL ESTERS 1 GM CAPSULE PO SCH ×2 (09:24→20:24)
[2017-03-20] MEDS: LISINOPRIL 5 MG TABLET PO SCH ×2 (09:24→20:24)
[2017-03-20] MEDS: POLYETHYLENE GLYCOL 3350 17 GM PACKET PO SCH (09:24)
[2017-03-20] MEDS: NYSTATIN POWDER 15 GM TOP SCH ×2 (09:24→20:25)
[2017-03-20] MEDS: NYSTATIN CREAM 15 GM TUBE TOP SCH ×2 (09:24→20:25)
[2017-03-20] MEDS: BACLOFEN 10 MG TABLET PO PRN (09:25)
[2017-03-20] MEDS: SENNA 8.6 MG TABLET PO SCH (09:25)
[2017-03-20] MEDS: INSULIN GLARGINE 300 UNIT/3 ML PEN SUBQ SCH (20:23)
[2017-03-20] MEDS: SERTRALINE 50 MG TABLET PO SCH (20:23)
[2017-03-20] MEDS: GABAPENTIN 100 MG CAPSULE PO SCH (20:24)
[2017-03-20] MEDS: AMIODARONE 200 MG TABLET PO SCH (20:24)
[2017-03-20] MEDS: ATORVASTATIN 10 MG TABLET PO SCH (20:24)
[2017-03-21] MEDS: SODIUM CHLORIDE FLUSH 0.9% 10 ML SYRINGE IVP PRN ×4 (00:43→12:02)
[2017-03-21] MEDS: HYDROcod/ACETAM 10 MG/325 MG TABLET PO PRN ×5 (00:43→20:20)
[2017-03-21] MEDS: PIPERACILLIN/TAZOBACTAM 4.5 GM in SODIUM CHLORIDE 0.9% MINIBAG 100 ML IV SCH ×4 (00:44→17:41)
[2017-03-21] MEDS: SODIUM CHLORIDE FLUSH 0.9% 10 ML SYRINGE IVP SCH ×3 (05:27→20:31)
[2017-03-21 06:25] LABS: CALCIUM 8.8 mg/dL (8.5-10.3); POTASSIUM 4.1 mmol/L (3.5-5.0)
[2017-03-21 06:42] LABS: BILIRUBIN,DIRECT 0.1 mg/dL (0.1-0.5); BILIRUBIN,TOTAL 0.5 mg/dL (0.2-1.0); CREATININE 1.3 mg/dL (0.6-1.2); TOTAL PROTEIN 5.9 g/dL (6.7-8.2)
[2017-03-21] MEDS: INSULIN ASPART 300 UNIT/3 ML PEN SUBQ SCH ×7 (08:04→20:31)
[2017-03-21] MEDS: MULTIVITAMIN TABLET PO SCH (08:07)
[2017-03-21] MEDS: DOCUSATE SODIUM 250 MG CAPSULE PO SCH (08:07)
[2017-03-21] MEDS: LISINOPRIL 5 MG TABLET PO SCH ×2 (08:07→20:24)
[2017-03-21] MEDS: ASPIRIN EC 81 MG TABLET PO SCH (08:08)
[2017-03-21] MEDS: FENOFIBRATE 48 MG TABLET PO SCH (08:08)
[2017-03-21] MEDS: AMIODARONE 200 MG TABLET PO SCH ×2 (08:08→20:23)
[2017-03-21] MEDS: FUROSEMIDE 40 MG TABLET PO SCH (08:09)
[2017-03-21] MEDS: lamoTRIgine 100 MG TABLET PO SCH (08:09)
[2017-03-21] MEDS: SENNA 8.6 MG TABLET PO SCH ×4 (08:09→22:48)
[2017-03-21] MEDS: levoFLOXacin 250 MG TABLET PO SCH (08:09)
[2017-03-21] MEDS: NYSTATIN POWDER 15 GM TOP SCH ×2 (08:10→20:31)
[2017-03-21] MEDS: ENOXAPARIN 40 MG/0.4 ML SYRINGE SUBQ SCH (08:10)
[2017-03-21] MEDS: POLYETHYLENE GLYCOL 3350 17 GM PACKET PO SCH (08:10)
[2017-03-21] MEDS: SACCHAROMYCES BOULARDII 250 MG CAPSULE PO SCH ×2 (08:10→16:42)
[2017-03-21] MEDS: NYSTATIN CREAM 15 GM TUBE TOP SCH ×2 (08:11→20:24)
--- NOTE | 2017-03-21 08:25 | PROVIDER PROGRESS NOTE ---
Subjective - General Admit Date: 03/16/17 - Review of Systems Wound/Incisions: positive: Healing well Musculoskeletal: positive: No symptoms Skin: positive: Bruising Objective - Patient Data Intake & Output: Intake and Output Totals x24h 03/19/17 03/20/17 03/21/17 23:59 23:59 23:59 Intake Total 5905 3816 1027 Output Total 6055 0725 1200 Balance -174 -598 -173 - Lab Results Lab Results: 03/19/17 05:30 03/21/17 06:00 Other Lab Results: Lab Results x24hrs 03/21/17 03/21/17 03/20/17 Range/Units 07:41 06:00 19:31 Sodium 136 (135-145) mmol/L Potassium 4.1 (3.5-5.0) mmol/L Chloride 91 L (101-111) mmol/L Carbon Dioxide 38 H (21-32) mmol/L Anion Gap 7.0 (6-13) BUN 24 H (6-20) mg/dL Creatinine 1.3 H (0.6-1.2) mg/dL Estimated GFR (MDRD) 57 L (>89) Glucose 113 H (70-100) mg/dL POC Whole Bld Glucose 118 H 153 H (70 - 100) mg/dL Calcium 8.8 (8.5-10.3) mg/dL Total Bilirubin 0.5 (0.2-1.0) mg/dL Direct Bilirubin 0.1 (0.1-0.5) mg/dL AST 27 (10-42) IU/L ALT 34 (10-60) IU/L Alkaline Phosphatase 45 (42-121) IU/L Total Protein 5.9 L (6.7-8.2) g/dL Albumin 2.8 L (3.2-5.5) g/dL Globulin 3.1 (2.1-4.2) g/dL 03/20/17 03/20/17 Range/Units 16:40 11:30 Sodium (135-145) mmol/L Potassium (3.5-5.0) mmol/L Chloride (101-111) mmol/L Carbon Dioxide (21-32) mmol/L Anion Gap (6-13) BUN (6-20) mg/dL Creatinine (0.6-1.2) mg/dL Estimated GFR (MDRD) (>89) Glucose (70-100) mg/dL POC Whole Bld Glucose 131 H 184 H (70 - 100) mg/dL Calcium (8.5-10.3) mg/dL Total Bilirubin (0.2-1.0) mg/dL Direct Bilirubin (0.1-0.5) mg/dL AST (10-42) IU/L ALT (10-60) IU/L Alkaline Phosphatase (42-121) IU/L Total Protein (6.7-8.2) g/dL Albumin (3.2-5.5) g/dL Globulin (2.1-4.2) g/dL - Current Medications Current Medications: Current Medications Generic Name Dose Route Start Last Admin Trade Name Freq PRN Reason Stop Dose Admin Acetaminophen/Hydrocodone Bitart 1 tab 03/18/17 15:46 03/21/17 00:43 [place] 10 Mg/325 Mg PO 1 tab Q4HR PRN Administration PAIN Acetaminophen/Hydrocodone Bitart 2 tab 03/18/17 15:46 03/21/17 07:42 [place] 10 Mg/325 Mg PO 2 tab Q4HR PRN Administration PAIN Amiodarone HCl 400 mg 03/20/17 21:00 03/21/17 08:08 Pacerone PO 03/25/17 09:01 400 mg BID [facility] Administration Aspirin 81 mg 03/21/17 09:00 03/21/17 08:08 Ecotrin PO 81 mg DAILY [facility] Administration Atorvastatin Calcium 10 mg 03/15/17 21:00 03/20/17 20:24 Lipitor PO 10 mg QPM [facility] Administration Baclofen 10 mg 03/15/17 16:40 03/20/17 09:25 Lioresal PO 10 mg TID PRN Administration Cramp Docusate Sodium 250 - 500 mg 03/17/17 09:00 03/21/17 08:07 Colace 250mg Capsule PO 500 mg DAILY [facility] Administration Enoxaparin Sodium 40 mg 03/17/17 09:00 03/21/17 08:10 Lovenox SUBQ 40 mg DAILY [facility] Administration Fenofibrate 144 mg 03/16/17 09:00 03/21/17 08:08 Tricor PO 144 mg DAILY [facility] Administration Furosemide 80 mg 03/16/17 09:00 03/21/17 08:09 Lasix PO 80 mg DAILY [facility] Administration Gabapentin 200 mg 03/15/17 21:00 03/20/17 20:24 Neurontin PO 200 mg QPM [facility] Administration Piperacillin Sod/Tazobactam 100 mls @ 100 mls/hr 03/16/17 18:00 03/21/17 05:26 Sod 4.5 gm/ Sodium Chloride IV 100 mls/hr Q6HR [facility] Administration Insulin Aspart 40 unit 03/15/17 17:00 03/21/17 08:12 Novolog SUBQ 40 unit TIDWM [facility] Administration Insulin Aspart 2 - 10 unit 03/19/17 17:00 03/21/17 08:04 Novolog SUBQ Not Given 0800,1200,1700,2100 [facility] Protocol Insulin Glargine 76 unit 03/15/17 21:00 03/20/17 20:23 Lantus Solostar SUBQ 76 unit QPM [facility] Administration Lamotrigine 100 mg 03/20/17 09:00 03/21/17 08:09 Lamictal PO 03/26/17 09:01 100 mg DAILY [facility] Administration Levofloxacin 750 mg 03/16/17 14:00 03/21/17 08:09 Levaquin PO 750 mg DAILY [facility] Administration Lisinopril 10 mg 03/15/17 21:00 03/21/17 08:07 Zestril PO 10 mg BID [facility] Administration Multivitamins 1 tab 03/16/17 08:00 03/21/17 08:07 Theragran PO 1 tab DAILYWM [facility] Administration Nystatin 1 applic 03/19/17 14:00 03/21/17 08:11 Mycostatin Cream TOP 1 applic BID [facility] Administration Nystatin 1 applic 03/19/17 14:00 03/21/17 08:10 Nystop TOP 1 applic BID [facility] Administration [id number] Ethyl Esters 2 gm 03/15/17 21:00 03/20/17 20:24 Lovaza PO 2 gm BID [facility] Administration Polyethylene Glycol 17 gm 03/17/17 09:00 03/21/17 08:10 Miralax PO 17 gm DAILY [facility] Administration Saccharomyces Boulardii 250 mg 03/16/17 17:00 03/21/17 08:10 Florastor PO 250 mg BIDWM [facility] Administration Senna 8.6 - 17.2 mg 03/17/17 09:00 03/21/17 08:09 Senokot PO 17.2 mg DAILY [facility] Administration Sertraline HCl 300 mg 03/15/17 21:00 03/20/17 20:23 Zoloft PO 300 mg QPM [facility] Administration Sodium Chloride 10 ml 03/16/17 13:55 03/21/17 06:50 Normal Saline Flush 0.9% IVP 10 ml PRN PRN Administration NEEDED PER PROVIDER ORDERS Sodium Chloride 10 ml 03/16/17 14:00 03/21/17 05:27 Normal Saline Flush 0.9% IVP 10 ml Q8HR [facility] Administration Impression/Plan - Problem List Problem List: ORtho:: Pt's foot ulcer remains bruised, blistered, and covered. Pt should be splinted prior to PT/stroke chair and mobilization. I have discussed using a stirrup splint for the next 4 weeks and the patient would like it applied tomorrow.
[2017-03-21] MEDS: OMEGA-3 ACID ETHYL ESTERS 1 GM CAPSULE PO SCH ×2 (12:03→20:20)
--- NOTE | 2017-03-21 15:33 | PROVIDER PROGRESS NOTE ---
Assessment/Plan - Problem List (1) Fracture of distal end of tibia Assessment/Plan: He developed a blister on his R heel It has been washed and dressed. it has an improved appearance. - Current Meds Current Meds: Current Medications Generic Name Dose Route Start Last Admin Trade Name Freq PRN Reason Stop Dose Admin Acetaminophen/Hydrocodone Bitart 1 tab 03/18/17 15:46 03/21/17 00:43 [place] 10 Mg/325 Mg PO 1 tab Q4HR PRN Administration PAIN Acetaminophen/Hydrocodone Bitart 2 tab 03/18/17 15:46 03/21/17 13:21 [place] 10 Mg/325 Mg PO 2 tab Q4HR PRN Administration PAIN Amiodarone HCl 400 mg 03/20/17 21:00 03/21/17 08:08 Pacerone PO 03/25/17 09:01 400 mg BID [facility] Administration Aspirin 81 mg 03/21/17 09:00 03/21/17 08:08 Ecotrin PO 81 mg DAILY [facility] Administration Atorvastatin Calcium 10 mg 03/15/17 21:00 03/20/17 20:24 Lipitor PO 10 mg QPM [facility] Administration Baclofen 10 mg 03/15/17 16:40 03/20/17 09:25 Lioresal PO 10 mg TID PRN Administration Cramp Docusate Sodium 250 - 500 mg 03/17/17 09:00 03/21/17 08:07 Colace 250mg Capsule PO 500 mg DAILY [facility] Administration Enoxaparin Sodium 40 mg 03/17/17 09:00 03/21/17 08:10 Lovenox SUBQ 40 mg DAILY [facility] Administration Fenofibrate 144 mg 03/16/17 09:00 03/21/17 08:08 Tricor PO 144 mg DAILY [facility] Administration Furosemide 80 mg 03/16/17 09:00 03/21/17 08:09 Lasix PO 80 mg DAILY [facility] Administration Gabapentin 200 mg 03/15/17 21:00 03/20/17 20:24 Neurontin PO 200 mg QPM [facility] Administration Piperacillin Sod/Tazobactam 100 mls @ 100 mls/hr 03/16/17 18:00 03/21/17 12:02 Sod 4.5 gm/ Sodium Chloride IV 100 mls/hr Q6HR [facility] Administration Insulin Aspart 40 unit 03/15/17 17:00 03/21/17 12:03 Novolog SUBQ 40 unit TIDWM [facility] Administration Insulin Aspart 2 - 10 unit 03/19/17 17:00 03/21/17 12:03 Novolog SUBQ 2 unit 0800,1200,1700,2100 [facility] Administration Protocol Insulin Glargine 76 unit 03/15/17 21:00 03/20/17 20:23 Lantus Solostar SUBQ 76 unit QPM [facility] Administration Lamotrigine 100 mg 03/20/17 09:00 03/21/17 08:09 Lamictal PO 03/26/17 09:01 100 mg DAILY [facility] Administration Levofloxacin 750 mg 03/16/17 14:00 03/21/17 08:09 Levaquin PO 750 mg DAILY [facility] Administration Lisinopril 10 mg 03/15/17 21:00 03/21/17 08:07 Zestril PO 10 mg BID [facility] Administration Multivitamins 1 tab 03/16/17 08:00 03/21/17 08:07 Theragran PO 1 tab DAILYWM [facility] Administration Nystatin 1 applic 03/19/17 14:00 03/21/17 08:11 Mycostatin Cream TOP 1 applic BID [facility] Administration Nystatin 1 applic 03/19/17 14:00 03/21/17 08:10 Nystop TOP 1 applic BID [facility] Administration Lorjh-3-Goel Ethyl Esters 2 gm 03/15/17 21:00 03/21/17 12:03 Lovaza PO 2 gm BID [facility] Administration Polyethylene Glycol 17 gm 03/17/17 09:00 03/21/17 08:10 Miralax PO 17 gm DAILY [facility] Administration Saccharomyces Boulardii 250 mg 03/16/17 17:00 03/21/17 08:10 Florastor PO 250 mg BIDWM [facility] Administration Senna 8.6 - 17.2 mg 03/17/17 09:00 03/21/17 08:09 Senokot PO 17.2 mg DAILY [facility] Administration Senna 17.2 - 25.8 mg 03/21/17 11:00 03/21/17 12:03 Senokot PO 03/22/17 05:01 17.2 mg Q6H [facility] Administration Sertraline HCl 300 mg 03/15/17 21:00 03/20/17 20:23 Zoloft PO 300 mg QPM [facility] Administration Sodium Chloride 10 ml 03/16/17 13:55 03/21/17 12:02 Normal Saline Flush 0.9% IVP 10 ml PRN PRN Administration NEEDED PER PROVIDER ORDERS Sodium Chloride 10 ml 03/16/17 14:00 03/21/17 14:12 Normal Saline Flush 0.9% IVP 10 ml Q8HR [facility] Administration - Lab Result Fish Bone Diagrams: 03/19/17 05:30 03/21/17 06:00 - Additional Planning My Orders: My Active Orders 03/21/17 11:00 Senna [Senokot] 17.2 - 25.8 mg PO Q6H 03/21/17 15:25 Miscellaenous Nursing Order [RC] Q3HR 03/21/17 21:00 Mupirocin 2% Oint [Bactroban 2% Oint] 1 applic TOP BID Subjective - Subjective Patient Reports: Feeling Better, Resting Comfortably Nursing Reports: No Complaints Objective Vital Signs: Vital Signs - 24 hr 03/20/17 03/21/17 03/21/17 17:56 00:17 08:10 Temperature 36.9 C 36.9 C Heart Rate [ 80 89 Brachial] Respiratory 16 18 Rate Blood Pressure 104/63 104/65 118/73 [Left Brachial artery] O2 Saturation 96 98 03/21/17 08:59 Temperature 36.9 C Heart Rate [ 86 Brachial] Respiratory 18 Rate Blood Pressure 102/64 [Left Brachial artery] O2 Saturation 96 Oxygen O2 Source [Without Activity] trach blow by O2 Source trac collar I&O (Last 24 Hrs): Intake and Output Totals x24h 03/19/17 03/20/17 03/21/17 23:59 23:59 23:59 Intake Total 5901 4702 4217 Output Total 6075 5300 3875 Balance -174 -598 342 General: Alert, Oriented x3, Cooperative HEENT: PERRLA, EOMI Neck: No JVD Lymphatic: other (stoma intact with some drainage.) Neuro: Alert, Oriented Times 3 Cardiovascular: Regular rate, No murmurs Respiratory: Chest non-tender, No respiratory distress, Breath sounds nml Abdomen: Normal bowel sounds, Soft, No tenderness Extremities: Other (1-2 + edema of calves.) Skin: No rashes - Results Results: Laboratory Results WBC 10.6 x10^3/uL (4.8-10.8) 03/19/17 05:30 RBC 4.14 10^6/uL (4.70-6.10) L 03/19/17 05:30 Hgb 12.1 g/dL (14.0-18.0) L 03/19/17 05:30 Hct 36.4 % (42.0-52.0) L 03/19/17 05:30 MCV 87.8 fL (80.0-94.0) 03/19/17 05:30 MCH 29.2 pg (27.0-31.0) 03/19/17 05:30 MCHC 33.3 g/dL (32.0-36.0) 03/19/17 05:30 RDW 13.5 % (12.0-15.0) 03/19/17 05:30 Plt Count 291 10^3/uL (130-450) 03/19/17 05:30 MPV 8.2 fL (7.4-11.4) 03/19/17 05:30 Neut # 6.8 10^3/uL (1.5-6.6) H 03/19/17 05:30 Lymph # 2.3 10^3/uL (1.5-3.5) 03/19/17 05:30 [place] # 1.0 10^3/uL (0.0-1.0) 03/19/17 05:30 Eos # 0.5 10^3/uL (0.0-0.7) 03/19/17 05:30 Baso # 0.1 10^3/uL (0.0-0.1) 03/19/17 05:30 Absolute Nucleated RBC 0.00 x10^3/uL 03/19/17 05:30 Nucleated RBCs 0.0 /100WBC 03/19/17 05:30 Bld Gas Analysis Time 0823 03/18/17 08:23 Sample Site RIGHT RADIAL 03/18/17 08:23 ABG pH 7.43 (7.35-7.45) 03/18/17 08:23 ABG pCO2 60 mmHg (34-45) H* 03/18/17 08:23 ABG pO2 84 mmHg (80-100) 03/18/17 08:23 ABG HCO3 39.1 mmol/L (22.0-26.0) H 03/18/17 08:23 ABG Total CO2 40.9 MMOL/L (21.0-29.0) H* 03/18/17 08:23 ABG O2 Saturation 96 % (94-98) 03/18/17 08:23 ABG Base Excess 12.4 mmol/L (-2.0-3.0) H 03/18/17 08:23 Avinash Test POSITIVE 03/18/17 08:23 O2 Delivery Device VENTILATOR 03/18/17 08:23 O2 Liters/Min 4.00 LPM 03/18/17 08:23 Sodium 136 mmol/L (135-145) 03/21/17 06:00 Potassium 4.1 mmol/L (3.5-5.0) 03/21/17 06:00 Chloride 91 mmol/L (101-111) L 03/21/17 06:00 Carbon Dioxide 38 mmol/L (21-32) H 03/21/17 06:00 Anion Gap 7.0 (6-13) 03/21/17 06:00 BUN 24 mg/dL (6-20) H 03/21/17 06:00 Creatinine 1.3 mg/dL (0.6-1.2) H 03/21/17 06:00 Estimated GFR (MDRD) 57 (>89) L 03/21/17 06:00 Glucose 113 mg/dL (70-100) H 03/21/17 06:00 POC Whole Bld Glucose 162 mg/dL (70 - 100) H 03/21/17 10:45 Calcium 8.8 mg/dL (8.5-10.3) 03/21/17 06:00 Total Bilirubin 0.5 mg/dL (0.2-1.0) 03/21/17 06:00 Direct Bilirubin 0.1 mg/dL (0.1-0.5) 03/21/17 06:00 AST 27 IU/L (10-42) 03/21/17 06:00 ALT 34 IU/L (10-60) 03/21/17 06:00 Alkaline Phosphatase 45 IU/L (42-121) 03/21/17 06:00 Troponin I < 0.04 ng/mL (<0.49) 03/16/17 11:57 B-Natriuretic Peptide 51 pg/mL (5-100) 03/16/17 11:57 Total Protein 5.9 g/dL (6.7-8.2) L 03/21/17 06:00 Albumin 2.8 g/dL (3.2-5.5) L 03/21/17 06:00 Globulin 3.1 g/dL (2.1-4.2) 03/21/17 06:00 - Procedures Procedures: Procedures VENOUS CATHETERIZATION NEC (05/21/14)
[2017-03-21] MEDS: SERTRALINE 50 MG TABLET PO SCH (20:20)
[2017-03-21] MEDS: MUPIROCIN 2% OINT 22 GM TUBE TOP SCH (20:20)
[2017-03-21] MEDS: ATORVASTATIN 10 MG TABLET PO SCH (20:23)
[2017-03-21] MEDS: GABAPENTIN 100 MG CAPSULE PO SCH (20:24)
[2017-03-21] MEDS: INSULIN GLARGINE 300 UNIT/3 ML PEN SUBQ SCH (20:25)
[2017-03-22] MEDS: HYDROcod/ACETAM 10 MG/325 MG TABLET PO PRN ×4 (00:04→19:15)
[2017-03-22] MEDS: PIPERACILLIN/TAZOBACTAM 4.5 GM in SODIUM CHLORIDE 0.9% MINIBAG 100 ML IV SCH ×4 (00:21→17:19)
[2017-03-22] MEDS: SENNA 8.6 MG TABLET PO SCH ×2 (06:33→09:36)
[2017-03-22] MEDS: SODIUM CHLORIDE FLUSH 0.9% 10 ML SYRINGE IVP PRN (06:33)
[2017-03-22] MEDS: SODIUM CHLORIDE FLUSH 0.9% 10 ML SYRINGE IVP SCH ×3 (06:44→22:02)
[2017-03-22] MEDS: INSULIN ASPART 300 UNIT/3 ML PEN SUBQ SCH ×7 (08:13→22:03)
[2017-03-22] MEDS: POLYETHYLENE GLYCOL 3350 17 GM PACKET PO SCH (09:26)
[2017-03-22] MEDS: MULTIVITAMIN TABLET PO SCH (09:28)
[2017-03-22] MEDS: SACCHAROMYCES BOULARDII 250 MG CAPSULE PO SCH ×2 (09:29→17:19)
[2017-03-22] MEDS: AMIODARONE 200 MG TABLET PO SCH ×2 (09:29→21:59)
[2017-03-22] MEDS: ASPIRIN EC 81 MG TABLET PO SCH (09:30)
[2017-03-22] MEDS: DOCUSATE SODIUM 250 MG CAPSULE PO SCH (09:31)
[2017-03-22] MEDS: FENOFIBRATE 48 MG TABLET PO SCH (09:32)
[2017-03-22] MEDS: lamoTRIgine 100 MG TABLET PO SCH (09:33)
[2017-03-22] MEDS: FUROSEMIDE 40 MG TABLET PO SCH (09:33)
[2017-03-22] MEDS: LISINOPRIL 5 MG TABLET PO SCH ×2 (09:34→21:59)
[2017-03-22] MEDS: levoFLOXacin 250 MG TABLET PO SCH (09:34)
[2017-03-22] MEDS: OMEGA-3 ACID ETHYL ESTERS 1 GM CAPSULE PO SCH ×2 (09:35→22:00)
[2017-03-22] MEDS: ENOXAPARIN 40 MG/0.4 ML SYRINGE SUBQ SCH (09:38)
[2017-03-22] MEDS: MUPIROCIN 2% OINT 22 GM TUBE TOP SCH ×2 (10:36→22:02)
[2017-03-22] MEDS: NYSTATIN POWDER 15 GM TOP SCH ×2 (10:50→22:01)
[2017-03-22] MEDS: NYSTATIN CREAM 15 GM TUBE TOP SCH ×2 (10:51→22:02)
--- NOTE | 2017-03-22 11:55 | PROVIDER PROGRESS NOTE ---
Assessment/Plan - Problem List (1) Fracture of distal end of tibia Assessment/Plan: He is in the healing phase and as he says it needs to kniit (2) Pneumonia Assessment/Plan: Rai is on room air no cough, no resp distress. Will discontinue the Levaquin after tomorrow a 7 day course. - Current Meds Current Meds: Current Medications Generic Name Dose Route Start Last Admin Trade Name Freq PRN Reason Stop Dose Admin Acetaminophen/Hydrocodone Bitart 1 tab 03/18/17 15:46 03/21/17 00:43 [place] 10 Mg/325 Mg PO 1 tab Q4HR PRN Administration PAIN Acetaminophen/Hydrocodone Bitart 2 tab 03/18/17 15:46 03/22/17 07:52 [place] 10 Mg/325 Mg PO 2 tab Q4HR PRN Administration PAIN Amiodarone HCl 400 mg 03/20/17 21:00 03/22/17 09:29 Pacerone PO 03/25/17 09:01 400 mg BID AR[place] Administration Aspirin 81 mg 03/21/17 09:00 03/22/17 09:30 Ecotrin PO 81 mg DAILY AR[place] Administration Atorvastatin Calcium 10 mg 03/15/17 21:00 03/21/17 20:23 Lipitor PO 10 mg QPM AR[place] Administration Baclofen 10 mg 03/15/17 16:40 03/20/17 09:25 Lioresal PO 10 mg TID PRN Administration Cramp Docusate Sodium 250 - 500 mg 03/17/17 09:00 03/22/17 09:31 Colace 250mg Capsule PO 500 mg DAILY ARDEN Administration Enoxaparin Sodium 40 mg 03/17/17 09:00 03/22/17 09:38 Lovenox SUBQ 40 mg DAILY ARDEN Administration Fenofibrate 144 mg 03/16/17 09:00 03/22/17 09:32 Tricor PO 144 mg DAILY ARDEN Administration Furosemide 80 mg 03/16/17 09:00 03/22/17 09:33 Lasix PO 80 mg DAILY ARDEN Administration Gabapentin 200 mg 03/15/17 21:00 03/21/17 20:24 Neurontin PO 200 mg QPM ARDEN Administration Piperacillin Sod/Tazobactam 100 mls @ 100 mls/hr 03/16/17 18:00 03/22/17 06:33 Sod 4.5 gm/ Sodium Chloride IV 100 mls/hr Q6HR AR[place] Administration Insulin Aspart 40 unit 03/15/17 17:00 03/22/17 08:13 Novolog SUBQ 40 unit TIDWM ARDEN Administration Insulin Aspart 2 - 10 unit 03/19/17 17:00 03/22/17 08:14 Novolog SUBQ 2 unit 0800,1200,1700,2100 ARDEN Administration Protocol Insulin Glargine 76 unit 03/15/17 21:00 03/21/17 20:25 Lantus Solostar SUBQ 76 unit QPM ARDEN Administration Lamotrigine 100 mg 03/20/17 09:00 03/22/17 09:33 Lamictal PO 03/26/17 09:01 100 mg DAILY ARDEN Administration Levofloxacin 750 mg 03/16/17 14:00 03/22/17 09:34 Levaquin PO 750 mg DAILY ARDEN Administration Lisinopril 10 mg 03/15/17 21:00 03/22/17 09:34 Zestril PO 10 mg BID ARDEN Administration Multivitamins 1 tab 03/16/17 08:00 03/22/17 09:28 Theragran PO 1 tab DAILYWM AR[place] Administration Mupirocin 1 applic 03/21/17 21:00 03/22/17 10:36 Bactroban 2% Oint TOP 1 applic BID ARDEN Administration Nystatin 1 applic 03/19/17 14:00 03/22/17 10:51 Mycostatin Cream TOP 1 applic BID ARDEN Administration Nystatin 1 applic 03/19/17 14:00 03/22/17 10:50 Nystop TOP 1 applic BID ARDEN Administration Aqirs-4-Xtib Ethyl Esters 2 gm 03/15/17 21:00 03/22/17 09:35 Lovaza PO 2 gm BID ARDEN Administration Polyethylene Glycol 17 gm 03/17/17 09:00 03/22/17 09:26 Miralax PO 17 gm DAILY ARDEN Administration Saccharomyces Boulardii 250 mg 03/16/17 17:00 03/22/17 09:29 Florastor PO 250 mg BIDWM AR[place] Administration Senna 8.6 - 17.2 mg 03/17/17 09:00 03/22/17 09:36 Senokot PO 8.6 mg DAILY AR[place] Administration Sertraline HCl 300 mg 03/15/17 21:00 03/21/17 20:20 Zoloft PO 300 mg QPM AR[place] Administration Sodium Chloride 10 ml 03/16/17 13:55 03/22/17 06:33 Normal Saline Flush 0.9% IVP 10 ml PRN PRN Administration NEEDED PER PROVIDER ORDERS Sodium Chloride 10 ml 03/16/17 14:00 03/22/17 06:44 Normal Saline Flush 0.9% IVP 10 ml Q8HR ARDEN Administration - Lab Result Fish Bone Diagrams: 03/19/17 05:30 03/21/17 06:00 - Additional Planning My Orders: My Active Orders 03/21/17 15:25 Miscellaenous Nursing Order [RC] Q3HR 03/21/17 21:00 Mupirocin 2% Oint [Bactroban 2% Oint] 1 applic TOP BID Subjective - Subjective Patient Reports: Feeling Better, Resting Comfortably Nursing Reports: No Complaints Objective Vital Signs: Vital Signs - 24 hr 03/21/17 03/22/17 03/22/17 18:15 00:39 07:22 Temperature 36.8 C 36.9 C 36.7 C Heart Rate [ 80 76 72 Brachial] Respiratory 20 20 18 Rate Blood Pressure 101/59 L [Left Brachial artery] Blood Pressure 97/65 108/69 [Right brachial ] O2 Saturation 96 98 97 Oxygen O2 Source [Without Activity] trach blow by O2 Source trac collar I&O (Last 24 Hrs): Intake and Output Totals x24h 03/20/17 03/21/17 03/22/17 23:59 23:59 23:59 Intake Total 4702 5097 350 Output Total 5300 5800 950 Balance -598 703 -600 General: Alert, Oriented x3, Cooperative, Moderate distress HEENT: PERRLA Neck: No JVD, No thyromegaly Neuro: Alert, Non Focal Cardiovascular: Regular rate, No murmurs Respiratory: Chest non-tender, Breath sounds nml Abdomen: Normal bowel sounds, Soft - Results Results: Laboratory Results WBC 10.6 x10^3/uL (4.8-10.8) 03/19/17 05:30 RBC 4.14 10^6/uL (4.70-6.10) L 03/19/17 05:30 Hgb 12.1 g/dL (14.0-18.0) L 03/19/17 05:30 Hct 36.4 % (42.0-52.0) L 03/19/17 05:30 MCV 87.8 fL (80.0-94.0) 03/19/17 05:30 MCH 29.2 pg (27.0-31.0) 03/19/17 05:30 MCHC 33.3 g/dL (32.0-36.0) 03/19/17 05:30 RDW 13.5 % (12.0-15.0) 03/19/17 05:30 Plt Count 291 10^3/uL (130-450) 03/19/17 05:30 MPV 8.2 fL (7.4-11.4) 03/19/17 05:30 Neut # 6.8 10^3/uL (1.5-6.6) H 03/19/17 05:30 Lymph # 2.3 10^3/uL (1.5-3.5) 03/19/17 05:30 [place] # 1.0 10^3/uL (0.0-1.0) 03/19/17 05:30 Eos # 0.5 10^3/uL (0.0-0.7) 03/19/17 05:30 Baso # 0.1 10^3/uL (0.0-0.1) 03/19/17 05:30 Absolute Nucleated RBC 0.00 x10^3/uL 03/19/17 05:30 Nucleated RBCs 0.0 /100WBC 03/19/17 05:30 Bld Gas Analysis Time 0803/18/17 08:23 Sample Site RIGHT RADIAL 03/18/17 08:23 ABG pH 7.43 (7.35-7.45) 03/18/17 08:23 ABG pCO2 60 mmHg (34-45) H* 03/18/17 08:23 ABG pO2 84 mmHg (80-100) 03/18/17 08:23 ABG HCO3 39.1 mmol/L (22.0-26.0) H 03/18/17 08:23 ABG Total CO2 40.9 MMOL/L (21.0-29.0) H* 03/18/17 08:23 ABG O2 Saturation 96 % (94-98) 03/18/17 08:23 ABG Base Excess 12.4 mmol/L (-2.0-3.0) H 03/18/17 08:23 Avinash Test POSITIVE 03/18/17 08:23 O2 Delivery Device VENTILATOR 03/18/17 08:23 O2 Liters/Min 4.00 LPM 03/18/17 08:23 Sodium 136 mmol/L (135-145) 03/21/17 06:00 Potassium 4.1 mmol/L (3.5-5.0) 03/21/17 06:00 Chloride 91 mmol/L (101-111) L 03/21/17 06:00 Carbon Dioxide 38 mmol/L (21-32) H 03/21/17 06:00 Anion Gap 7.0 (6-13) 03/21/17 06:00 BUN 24 mg/dL (6-20) H 03/21/17 06:00 Creatinine 1.3 mg/dL (0.6-1.2) H 03/21/17 06:00 Estimated GFR (MDRD) 57 (>89) L 03/21/17 06:00 Glucose 113 mg/dL (70-100) H 03/21/17 06:00 POC Whole Bld Glucose 215 mg/dL (70 - 100) H 03/22/17 11:12 Calcium 8.8 mg/dL (8.5-10.3) 03/21/17 06:00 Total Bilirubin 0.5 mg/dL (0.2-1.0) 03/21/17 06:00 Direct Bilirubin 0.1 mg/dL (0.1-0.5) 03/21/17 06:00 AST 27 IU/L (10-42) 03/21/17 06:00 ALT 34 IU/L (10-60) 03/21/17 06:00 Alkaline Phosphatase 45 IU/L (42-121) 03/21/17 06:00 Troponin I < 0.04 ng/mL (<0.49) 03/16/17 11:57 B-Natriuretic Peptide 51 pg/mL (5-100) 03/16/17 11:57 Total Protein 5.9 g/dL (6.7-8.2) L 03/21/17 06:00 Albumin 2.8 g/dL (3.2-5.5) L 03/21/17 06:00 Globulin 3.1 g/dL (2.1-4.2) 03/21/17 06:00 - Procedures Procedures: Procedures VENOUS CATHETERIZATION NEC (05/21/14)
--- NOTE | 2017-03-22 12:04 | PROVIDER PROGRESS NOTE ---
Subjective - General Admit Date: 03/16/17 - Review of Systems Wound/Incisions: positive: Healing well Musculoskeletal: positive: No symptoms Skin: positive: Bruising Objective - Patient Data Reviewed Vital Signs: Yes Vital Signs: Vital Signs x48h Temp Pulse Resp BP Pulse Ox 03/22/17 07:22 36.7 C 72 18 108/69 97 Intake & Output: Intake and Output Totals x24h 03/20/17 03/21/17 03/22/17 23:59 23:59 23:59 Intake Total 4702 5097 350 Output Total 5300 5800 950 Balance -598 -703 -600 - Lab Results Lab Results: 03/19/17 05:30 03/21/17 06:00 Other Lab Results: Lab Results x24hrs 03/22/17 03/22/17 03/21/17 Range/Units 11:12 07:21 20:18 POC Whole Bld Glucose 215 H 164 H 123 H (70 - 100) mg/dL 03/21/17 Range/Units 16:36 POC Whole Bld Glucose 122 H (70 - 100) mg/dL - Current Medications Current Medications: Current Medications Generic Name Dose Route Start Last Admin Trade Name Freq PRN Reason Stop Dose Admin Acetaminophen/Hydrocodone Bitart 1 tab 03/18/17 15:46 03/21/17 00:43 [place] 10 Mg/325 Mg PO 1 tab Q4HR PRN Administration PAIN Acetaminophen/Hydrocodone Bitart 2 tab 03/18/17 15:46 03/22/17 07:52 [place] 10 Mg/325 Mg PO 2 tab Q4HR PRN Administration PAIN Amiodarone HCl 400 mg 03/20/17 21:00 03/22/17 09:29 Pacerone PO 03/25/17 09:01 400 mg BID AR[place] Administration Aspirin 81 mg 03/21/17 09:00 03/22/17 09:30 Ecotrin PO 81 mg DAILY ARDEN Administration Atorvastatin Calcium 10 mg 03/15/17 21:00 03/21/17 20:23 Lipitor PO 10 mg QPM AR[place] Administration Baclofen 10 mg 03/15/17 16:40 03/20/17 09:25 Lioresal PO 10 mg TID PRN Administration Cramp Docusate Sodium 250 - 500 mg 03/17/17 09:00 03/22/17 09:31 Colace 250mg Capsule PO 500 mg DAILY ARDEN Administration Enoxaparin Sodium 40 mg 03/17/17 09:00 03/22/17 09:38 Lovenox SUBQ 40 mg DAILY ARDEN Administration Fenofibrate 144 mg 03/16/17 09:00 03/22/17 09:32 Tricor PO 144 mg DAILY ARDEN Administration Furosemide 80 mg 03/16/17 09:00 03/22/17 09:33 Lasix PO 80 mg DAILY ARDEN Administration Gabapentin 200 mg 03/15/17 21:00 03/21/17 20:24 Neurontin PO 200 mg QPM ARDEN Administration Piperacillin Sod/Tazobactam 100 mls @ 100 mls/hr 03/16/17 18:00 03/22/17 06:33 Sod 4.5 gm/ Sodium Chloride IV 100 mls/hr Q6HR ARDEN Administration Insulin Aspart 40 unit 03/15/17 17:00 03/22/17 08:13 Novolog SUBQ 40 unit TIDWM ARDEN Administration Insulin Aspart 2 - 10 unit 03/19/17 17:00 03/22/17 08:14 Novolog SUBQ 2 unit 0800,1200,1700,2100 ARDEN Administration Protocol Insulin Glargine 76 unit 03/15/17 21:00 03/21/17 20:25 Lantus Solostar SUBQ 76 unit QPM ARDEN Administration Lamotrigine 100 mg 03/20/17 09:00 03/22/17 09:33 Lamictal PO 03/26/17 09:01 100 mg DAILY ARDEN Administration Levofloxacin 750 mg 03/16/17 14:00 03/22/17 09:34 Levaquin PO 750 mg DAILY ARDEN Administration Lisinopril 10 mg 03/15/17 21:00 03/22/17 09:34 Zestril PO 10 mg BID ARDEN Administration Multivitamins 1 tab 03/16/17 08:00 03/22/17 09:28 Theragran PO 1 tab DAILYWM AR[place] Administration Mupirocin 1 applic 03/21/17 21:00 03/22/17 10:36 Bactroban 2% Oint TOP 1 applic BID ARDEN Administration Nystatin 1 applic 03/19/17 14:00 03/22/17 10:51 Mycostatin Cream TOP 1 applic BID ARDEN Administration Nystatin 1 applic 03/19/17 14:00 03/22/17 10:50 Nystop TOP 1 applic BID ARDEN Administration Rtqdh-1-Cvwp Ethyl Esters 2 gm 03/15/17 21:00 03/22/17 09:35 Lovaza PO 2 gm BID ARDEN Administration Polyethylene Glycol 17 gm 03/17/17 09:00 03/22/17 09:26 Miralax PO 17 gm DAILY ARDEN Administration Saccharomyces Boulardii 250 mg 03/16/17 17:00 03/22/17 09:29 Florastor PO 250 mg BIDWM ARDEN Administration Senna 8.6 - 17.2 mg 03/17/17 09:00 03/22/17 09:36 Senokot PO 8.6 mg DAILY ARDEN Administration Sertraline HCl 300 mg 03/15/17 21:00 03/21/17 20:20 Zoloft PO 300 mg QPM ARDEN Administration Sodium Chloride 10 ml 03/16/17 13:55 03/22/17 06:33 Normal Saline Flush 0.9% IVP 10 ml PRN PRN Administration NEEDED PER PROVIDER ORDERS Sodium Chloride 10 ml 03/16/17 14:00 03/22/17 06:44 Normal Saline Flush 0.9% IVP 10 ml Q8HR AR[place] Administration - Physical Exam Extremities: positive: Joint swelling Neurologic/Psychiatric: positive: Motor nml, Sensation nml, Mood/affect nml Impression/Plan - Problem List Problem List: Ortho: ' This patient has very low demand for use of the right LE I feel that it would be counterproductive to cast or splint. Having it exposed allows care of the pressure sore, and visualization. It also avoids new pressure issues with a splint or wrap. His ankle was tested for stability, and I don't think there is any gross motion evident (the fracture is stable and unlikely to displace significantly).
[2017-03-22] MEDS: ATORVASTATIN 10 MG TABLET PO SCH (21:58)
[2017-03-22] MEDS: GABAPENTIN 100 MG CAPSULE PO SCH (21:59)
[2017-03-22] MEDS: SERTRALINE 50 MG TABLET PO SCH (22:00)
[2017-03-22] MEDS: INSULIN GLARGINE 300 UNIT/3 ML PEN SUBQ SCH (22:02)
[2017-03-23] MEDS: PIPERACILLIN/TAZOBACTAM 4.5 GM in SODIUM CHLORIDE 0.9% MINIBAG 100 ML IV SCH ×5 (00:19→23:49)
[2017-03-23] MEDS: HYDROcod/ACETAM 10 MG/325 MG TABLET PO PRN ×4 (00:27→18:55)
[2017-03-23] MEDS: SODIUM CHLORIDE FLUSH 0.9% 10 ML SYRINGE IVP SCH ×3 (05:45→21:09)
[2017-03-23] MEDS: INSULIN ASPART 300 UNIT/3 ML PEN SUBQ SCH ×7 (08:09→21:07)
[2017-03-23] MEDS: AMIODARONE 200 MG TABLET PO SCH ×2 (10:35→20:34)
[2017-03-23] MEDS: DOCUSATE SODIUM 250 MG CAPSULE PO SCH (10:36)
[2017-03-23] MEDS: ASPIRIN EC 81 MG TABLET PO SCH (10:36)
[2017-03-23] MEDS: FUROSEMIDE 40 MG TABLET PO SCH (10:37)
[2017-03-23] MEDS: lamoTRIgine 100 MG TABLET PO SCH (10:38)
[2017-03-23] MEDS: levoFLOXacin 250 MG TABLET PO SCH (10:38)
[2017-03-23] MEDS: LISINOPRIL 5 MG TABLET PO SCH ×2 (10:39→20:34)
[2017-03-23] MEDS: MULTIVITAMIN TABLET PO SCH (10:45)
[2017-03-23] MEDS: SACCHAROMYCES BOULARDII 250 MG CAPSULE PO SCH ×2 (10:46→16:58)
[2017-03-23] MEDS: FENOFIBRATE 48 MG TABLET PO SCH (10:46)
[2017-03-23] MEDS: OMEGA-3 ACID ETHYL ESTERS 1 GM CAPSULE PO SCH ×2 (10:47→20:33)
[2017-03-23] MEDS: SENNA 8.6 MG TABLET PO SCH (10:48)
[2017-03-23] MEDS: POLYETHYLENE GLYCOL 3350 17 GM PACKET PO SCH (10:49)
[2017-03-23] MEDS: ENOXAPARIN 40 MG/0.4 ML SYRINGE SUBQ SCH (10:50)
[2017-03-23] MEDS: SODIUM CHLORIDE FLUSH 0.9% 10 ML SYRINGE IVP PRN (10:54)
[2017-03-23] MEDS: MUPIROCIN 2% OINT 22 GM TUBE TOP SCH ×2 (10:57→20:35)
[2017-03-23] MEDS: NYSTATIN CREAM 15 GM TUBE TOP SCH ×2 (10:57→20:35)
[2017-03-23] MEDS: NYSTATIN POWDER 15 GM TOP SCH ×2 (10:58→20:35)
--- NOTE | 2017-03-23 11:27 | PROVIDER PROGRESS NOTE ---
Assessment/Plan - Problem List (1) Fracture of distal end of tibia Assessment/Plan: Healing fracture. He is sitting up in bed that mimics chair. challenge to keep R foot non wt. bearing. (2) Pneumonia Assessment/Plan: He will finish 7 day course of antibx today will D/C tomorrow - Current Meds Current Meds: Current Medications Generic Name Dose Route Start Last Admin Trade Name Freq PRN Reason Stop Dose Admin Acetaminophen/Hydrocodone Bitart 1 tab 03/18/17 15:46 03/21/17 00:43 [place] 10 Mg/325 Mg PO 1 tab Q4HR PRN Administration PAIN Acetaminophen/Hydrocodone Bitart 2 tab 03/18/17 15:46 03/23/17 08:08 [place] 10 Mg/325 Mg PO 2 tab Q4HR PRN Administration PAIN Amiodarone HCl 400 mg 03/20/17 21:00 03/23/17 10:35 Pacerone PO 03/25/17 09:01 400 mg BID ARDEN Administration Aspirin 81 mg 03/21/17 09:00 03/23/17 10:36 Ecotrin PO 81 mg DAILY ARDEN Administration Atorvastatin Calcium 10 mg 03/15/17 21:00 03/22/17 21:58 Lipitor PO 10 mg QPM AR[place] Administration Baclofen 10 mg 03/15/17 16:40 03/20/17 09:25 Lioresal PO 10 mg TID PRN Administration Cramp Docusate Sodium 250 - 500 mg 03/17/17 09:00 03/23/17 10:36 Colace 250mg Capsule PO 250 mg DAILY ARDEN Administration Enoxaparin Sodium 40 mg 03/17/17 09:00 03/23/17 10:50 Lovenox SUBQ 40 mg DAILY ARDEN Administration Fenofibrate 144 mg 03/16/17 09:00 03/23/17 10:46 Tricor PO 144 mg DAILY ARDEN Administration Furosemide 80 mg 03/16/17 09:00 03/23/17 10:37 Lasix PO 80 mg DAILY ARDEN Administration Gabapentin 200 mg 03/15/17 21:00 03/22/17 21:59 Neurontin PO 200 mg QPM ARDEN Administration Piperacillin Sod/Tazobactam 100 mls @ 100 mls/hr 03/16/17 18:00 03/23/17 05:45 Sod 4.5 gm/ Sodium Chloride IV 100 mls/hr Q6HR ARDEN Administration Insulin Aspart 40 unit 03/15/17 17:00 03/23/17 08:09 Novolog SUBQ 40 unit TIDWM ARDEN Administration Insulin Aspart 2 - 10 unit 03/19/17 17:00 03/23/17 08:10 Novolog SUBQ 2 unit 0800,1200,1700,2100 ARDEN Administration Protocol Insulin Glargine 76 unit 03/15/17 21:00 03/22/17 22:02 Lantus Solostar SUBQ 76 unit QPM ARDEN Administration Lamotrigine 100 mg 03/20/17 09:00 03/23/17 10:38 Lamictal PO 03/26/17 09:01 100 mg DAILY ARDEN Administration Levofloxacin 750 mg 03/16/17 14:00 03/23/17 10:38 Levaquin PO 750 mg DAILY ARDEN Administration Lisinopril 10 mg 03/15/17 21:00 03/23/17 10:39 Zestril PO 10 mg BID ARDEN Administration Multivitamins 1 tab 03/16/17 08:00 03/23/17 10:45 Theragran PO 1 tab DAILYWM AR[place] Administration Mupirocin 1 applic 03/21/17 21:00 03/23/17 10:57 Bactroban 2% Oint TOP 1 applic BID ARDEN Administration Nystatin 1 applic 03/19/17 14:00 03/23/17 10:57 Mycostatin Cream TOP 1 applic BID ARDEN Administration Nystatin 1 applic 03/19/17 14:00 03/23/17 10:58 Nystop TOP 1 applic BID ARDEN Administration Zevhg-3-Clig Ethyl Esters 2 gm 03/15/17 21:00 03/23/17 10:47 Lovaza PO 2 gm BID ARDEN Administration Polyethylene Glycol 17 gm 03/17/17 09:00 03/23/17 10:49 Miralax PO 17 gm DAILY ARDEN Administration Saccharomyces Boulardii 250 mg 03/16/17 17:00 03/23/17 10:46 Florastor PO 250 mg BIDWM ARDEN Administration Senna 8.6 - 17.2 mg 03/17/17 09:00 03/23/17 10:48 Senokot PO 8.6 mg DAILY ARDEN Administration Sertraline HCl 300 mg 03/15/17 21:00 03/22/17 22:00 Zoloft PO 300 mg QPM ARDEN Administration Sodium Chloride 10 ml 03/16/17 13:55 03/23/17 10:54 Normal Saline Flush 0.9% IVP 10 ml PRN PRN Administration NEEDED PER PROVIDER ORDERS Sodium Chloride 10 ml 03/16/17 14:00 03/23/17 05:45 Normal Saline Flush 0.9% IVP 10 ml Q8HR ARDEN Administration - Lab Result Fish Bone Diagrams: 03/19/17 05:30 03/21/17 06:00 Subjective - Subjective Patient Reports: Resting Comfortably Nursing Reports: No Complaints Objective Vital Signs: Vital Signs - 24 hr 03/22/17 03/23/17 03/23/17 16:30 00:40 08:18 Temperature 37.0 C 36.4 C L 36.4 C L Heart Rate [ 78 75 76 Brachial] Respiratory 20 20 19 Rate Blood Pressure 105/68 116/74 [Left Brachial artery] Blood Pressure 99/66 [Right brachial ] O2 Saturation 94 98 99 Oxygen O2 Source [Without Activity] trach blow by O2 Source trac collar I&O (Last 24 Hrs): Intake and Output Totals x24h 03/21/17 03/22/17 03/23/17 23:59 23:59 23:59 Intake Total 5097 3155 1540 Output Total 5800 4650 1150 Balance -703 -1495 390 General: Alert, Oriented x3, Cooperative HEENT: PERRLA, EOMI Neck: No JVD, No thyromegaly Neuro: Alert, Oriented Times 3 Cardiovascular: Regular rate, No murmurs Respiratory: Chest non-tender, No respiratory distress, Breath sounds nml Abdomen: Soft, No tenderness Extremities: Other (R heel ulcer is improved. will continue present care.) - Results Results: Laboratory Results WBC 10.6 x10^3/uL (4.8-10.8) 03/19/17 05:30 RBC 4.14 10^6/uL (4.70-6.10) L 03/19/17 05:30 Hgb 12.1 g/dL (14.0-18.0) L 03/19/17 05:30 Hct 36.4 % (42.0-52.0) L 03/19/17 05:30 MCV 87.8 fL (80.0-94.0) 03/19/17 05:30 MCH 29.2 pg (27.0-31.0) 03/19/17 05:30 MCHC 33.3 g/dL (32.0-36.0) 03/19/17 05:30 RDW 13.5 % (12.0-15.0) 03/19/17 05:30 Plt Count 291 10^3/uL (130-450) 03/19/17 05:30 MPV 8.2 fL (7.4-11.4) 03/19/17 05:30 Neut # 6.8 10^3/uL (1.5-6.6) H 03/19/17 05:30 Lymph # 2.3 10^3/uL (1.5-3.5) 03/19/17 05:30 [place] # 1.0 10^3/uL (0.0-1.0) 03/19/17 05:30 Eos # 0.5 10^3/uL (0.0-0.7) 03/19/17 05:30 Baso # 0.1 10^3/uL (0.0-0.1) 03/19/17 05:30 Absolute Nucleated RBC 0.00 x10^3/uL 03/19/17 05:30 Nucleated RBCs 0.0 /100WBC 03/19/17 05:30 Bld Gas Analysis Time 82203/18/17 08:23 Sample Site RIGHT RADIAL 03/18/17 08:23 ABG pH 7.43 (7.35-7.45) 03/18/17 08:23 ABG pCO2 60 mmHg (34-45) H* 03/18/17 08:23 ABG pO2 84 mmHg (80-100) 03/18/17 08:23 ABG HCO3 39.1 mmol/L (22.0-26.0) H 03/18/17 08:23 ABG Total CO2 40.9 MMOL/L (21.0-29.0) H* 03/18/17 08:23 ABG O2 Saturation 96 % (94-98) 03/18/17 08:23 ABG Base Excess 12.4 mmol/L (-2.0-3.0) H 03/18/17 08:23 Avinash Test POSITIVE 03/18/17 08:23 O2 Delivery Device VENTILATOR 03/18/17 08:23 O2 Liters/Min 4.00 LPM 03/18/17 08:23 Sodium 136 mmol/L (135-145) 03/21/17 06:00 Potassium 4.1 mmol/L (3.5-5.0) 03/21/17 06:00 Chloride 91 mmol/L (101-111) L 03/21/17 06:00 Carbon Dioxide 38 mmol/L (21-32) H 03/21/17 06:00 Anion Gap 7.0 (6-13) 03/21/17 06:00 BUN 24 mg/dL (6-20) H 03/21/17 06:00 Creatinine 1.3 mg/dL (0.6-1.2) H 03/21/17 06:00 Estimated GFR (MDRD) 57 (>89) L 03/21/17 06:00 Glucose 113 mg/dL (70-100) H 03/21/17 06:00 POC Whole Bld Glucose 229 mg/dL (70 - 100) H 03/23/17 11:07 Calcium 8.8 mg/dL (8.5-10.3) 03/21/17 06:00 Total Bilirubin 0.5 mg/dL (0.2-1.0) 03/21/17 06:00 Direct Bilirubin 0.1 mg/dL (0.1-0.5) 03/21/17 06:00 AST 27 IU/L (10-42) 03/21/17 06:00 ALT 34 IU/L (10-60) 03/21/17 06:00 Alkaline Phosphatase 45 IU/L (42-121) 03/21/17 06:00 Troponin I < 0.04 ng/mL (<0.49) 03/16/17 11:57 B-Natriuretic Peptide 51 pg/mL (5-100) 03/16/17 11:57 Total Protein 5.9 g/dL (6.7-8.2) L 03/21/17 06:00 Albumin 2.8 g/dL (3.2-5.5) L 03/21/17 06:00 Globulin 3.1 g/dL (2.1-4.2) 03/21/17 06:00 - Procedures Procedures: Procedures VENOUS CATHETERIZATION NEC (05/21/14)
[2017-03-23] MEDS ORDERED: MIN OIL/DIMETHICON/COCONUT OIL 92 GM TUBE TOP ONE (14:03)
[2017-03-23] MEDS: GABAPENTIN 100 MG CAPSULE PO SCH (20:34)
[2017-03-23] MEDS: SERTRALINE 50 MG TABLET PO SCH (20:34)
[2017-03-23] MEDS: ATORVASTATIN 10 MG TABLET PO SCH (20:34)
[2017-03-23] MEDS: INSULIN GLARGINE 300 UNIT/3 ML PEN SUBQ SCH (21:09)
[2017-03-24] MEDS: HYDROcod/ACETAM 10 MG/325 MG TABLET PO PRN ×4 (02:32→22:31)
[2017-03-24] MEDS: PIPERACILLIN/TAZOBACTAM 4.5 GM in SODIUM CHLORIDE 0.9% MINIBAG 100 ML IV SCH ×3 (05:39→18:37)
[2017-03-24] MEDS: SODIUM CHLORIDE FLUSH 0.9% 10 ML SYRINGE IVP SCH ×3 (05:39→18:37)
[2017-03-24] MEDS: INSULIN ASPART 300 UNIT/3 ML PEN SUBQ SCH ×7 (08:43→22:38)
[2017-03-24] MEDS: FENOFIBRATE 48 MG TABLET PO SCH (10:54)
[2017-03-24] MEDS: levoFLOXacin 250 MG TABLET PO SCH (10:55)
[2017-03-24] MEDS: DOCUSATE SODIUM 250 MG CAPSULE PO SCH (10:55)
[2017-03-24] MEDS: SACCHAROMYCES BOULARDII 250 MG CAPSULE PO SCH ×2 (10:57→17:32)
[2017-03-24] MEDS: ASPIRIN EC 81 MG TABLET PO SCH (10:58)
[2017-03-24] MEDS: MULTIVITAMIN TABLET PO SCH (10:58)
[2017-03-24] MEDS: SENNA 8.6 MG TABLET PO SCH (10:59)
[2017-03-24] MEDS: FUROSEMIDE 40 MG TABLET PO SCH (11:00)
[2017-03-24] MEDS: AMIODARONE 200 MG TABLET PO SCH ×2 (11:00→23:33)
[2017-03-24] MEDS: LISINOPRIL 5 MG TABLET PO SCH ×2 (11:01→22:38)
[2017-03-24] MEDS: lamoTRIgine 100 MG TABLET PO SCH (11:02)
[2017-03-24] MEDS: SODIUM CHLORIDE FLUSH 0.9% 10 ML SYRINGE IVP PRN (11:05)
[2017-03-24] MEDS: OMEGA-3 ACID ETHYL ESTERS 1 GM CAPSULE PO SCH ×2 (11:22→22:37)
[2017-03-24] MEDS: POLYETHYLENE GLYCOL 3350 17 GM PACKET PO SCH (11:24)
[2017-03-24] MEDS: ENOXAPARIN 40 MG/0.4 ML SYRINGE SUBQ SCH (11:25)
[2017-03-24] MEDS: NYSTATIN POWDER 15 GM TOP SCH ×2 (11:30→22:42)
[2017-03-24] MEDS: MUPIROCIN 2% OINT 22 GM TUBE TOP SCH ×2 (11:30→22:42)
[2017-03-24] MEDS: NYSTATIN CREAM 15 GM TUBE TOP SCH ×2 (11:30→22:42)
--- NOTE | 2017-03-24 11:52 | PROVIDER PROGRESS NOTE ---
Assessment/Plan - Problem List (1) Fracture of distal end of tibia Assessment/Plan: healing is able to sit up with min weight bearing. (2) Pneumonia Assessment/Plan: Finishes antibiotic today. Will get CXR tomorrow am - Current Meds Current Meds: Current Medications Generic Name Dose Route Start Last Admin Trade Name Freq PRN Reason Stop Dose Admin Acetaminophen/Hydrocodone Bitart 1 tab 03/18/17 15:46 03/21/17 00:43 [place] 10 Mg/325 Mg PO 1 tab Q4HR PRN Administration PAIN Acetaminophen/Hydrocodone Bitart 2 tab 03/18/17 15:46 03/24/17 08:58 [place] 10 Mg/325 Mg PO 2 tab Q4HR PRN Administration PAIN Amiodarone HCl 400 mg 03/20/17 21:00 03/24/17 11:00 Pacerone PO 03/25/17 09:01 400 mg BID ARDEN Administration Aspirin 81 mg 03/21/17 09:00 03/24/17 10:58 Ecotrin PO 81 mg DAILY ARDEN Administration Atorvastatin Calcium 10 mg 03/15/17 21:00 03/23/17 20:34 Lipitor PO 10 mg QPM ARDEN Administration Baclofen 10 mg 03/15/17 16:40 03/20/17 09:25 Lioresal PO 10 mg TID PRN Administration Cramp Docusate Sodium 250 - 500 mg 03/17/17 09:00 03/24/17 10:55 Colace 250mg Capsule PO 250 mg DAILY ARDEN Administration Enoxaparin Sodium 40 mg 03/17/17 09:00 03/24/17 11:25 Lovenox SUBQ 40 mg DAILY ARDEN Administration Fenofibrate 144 mg 03/16/17 09:00 03/24/17 10:54 Tricor PO 144 mg DAILY ARDEN Administration Furosemide 80 mg 03/16/17 09:00 03/24/17 11:00 Lasix PO 80 mg DAILY ARDEN Administration Gabapentin 200 mg 03/15/17 21:00 03/23/17 20:34 Neurontin PO 200 mg QPM ARDEN Administration Piperacillin Sod/Tazobactam 100 mls @ 100 mls/hr 03/16/17 18:00 03/24/17 11:18 Sod 4.5 gm/ Sodium Chloride IV 100 mls/hr Q6HR ARDEN Administration Insulin Aspart 40 unit 03/15/17 17:00 03/24/17 08:43 Novolog SUBQ 40 unit TIDWM ARDEN Administration Insulin Aspart 2 - 10 unit 03/19/17 17:00 03/24/17 08:43 Novolog SUBQ 2 unit 0800,1200,1700,2100 ARDEN Administration Protocol Insulin Glargine 76 unit 03/15/17 21:00 03/23/17 21:09 Lantus Solostar SUBQ 76 unit QPM ARDEN Administration Lamotrigine 100 mg 03/20/17 09:00 03/24/17 11:02 Lamictal PO 03/26/17 09:01 100 mg DAILY ARDEN Administration Levofloxacin 750 mg 03/16/17 14:00 03/24/17 10:55 Levaquin PO 750 mg DAILY ARDEN Administration Lisinopril 10 mg 03/15/17 21:00 03/24/17 11:01 Zestril PO 10 mg BID ARDEN Administration Multivitamins 1 tab 03/16/17 08:00 03/24/17 10:58 Theragran PO 1 tab DAILYWM AR[place] Administration Mupirocin 1 applic 03/21/17 21:00 03/23/17 20:35 Bactroban 2% Oint TOP 1 applic BID ARDEN Administration Nystatin 1 applic 03/19/17 14:00 03/24/17 11:30 Mycostatin Cream TOP 1 applic BID ARDEN Administration Nystatin 1 applic 03/19/17 14:00 03/24/17 11:30 Nystop TOP 1 applic BID ARDEN Administration Zgyln-2-Xvaw Ethyl Esters 2 gm 03/15/17 21:00 03/24/17 11:22 Lovaza PO 2 gm BID ARDEN Administration Polyethylene Glycol 17 gm 03/17/17 09:00 03/24/17 11:24 Miralax PO 17 gm DAILY ARDEN Administration Saccharomyces Boulardii 250 mg 03/16/17 17:00 03/24/17 10:57 Florastor PO 250 mg BIDWM ARDEN Administration Senna 8.6 - 17.2 mg 03/17/17 09:00 03/24/17 10:59 Senokot PO 8.6 mg DAILY ARDEN Administration Sertraline HCl 300 mg 03/15/17 21:00 03/23/17 20:34 Zoloft PO 300 mg QPM ARDEN Administration Sodium Chloride 10 ml 03/16/17 13:55 03/24/17 11:05 Normal Saline Flush 0.9% IVP 10 ml PRN PRN Administration NEEDED PER PROVIDER ORDERS Sodium Chloride 10 ml 03/16/17 14:00 03/24/17 05:39 Normal Saline Flush 0.9% IVP 10 ml Q8HR ARDEN Administration - Lab Result Fish Bone Diagrams: 03/19/17 05:30 03/21/17 06:00 - Additional Planning My Orders: My Active Orders 03/25/17 05:00 CBC - COMP BLD CT W/AUTO DIFF [HEME] DAILYLAB COMPREHENSIVE METABOLIC PANEL [CHEM] DAILYLAB Subjective - Subjective Patient Reports: Resting Comfortably Nursing Reports: No Complaints Objective Vital Signs: Vital Signs - 24 hr 03/23/17 03/24/17 03/24/17 17:19 00:00 08:11 Temperature 36.9 C 37.1 C 36.8 C Heart Rate [ 80 74 76 Brachial] Respiratory 16 20 16 Rate Blood Pressure 91/57 L 93/62 [Left Brachial artery] Blood Pressure 106/58 L [Right brachial ] O2 Saturation 94 98 96 Oxygen O2 Source [Without Activity] trach blow by O2 Source trach collar I&O (Last 24 Hrs): Intake and Output Totals x24h 03/22/17 03/23/17 03/24/17 23:59 23:59 23:59 Intake Total 3155 3460 200 Output Total 4650 4350 1250 Balance -1495 -890 -1050 General: Alert, Oriented x3, Cooperative HEENT: PERRLA, EOMI Neck: Supple, No JVD, No thyromegaly Neuro: Alert, Oriented Times 3 Cardiovascular: Regular rate, No murmurs Respiratory: Chest non-tender, No respiratory distress, Breath sounds nml Abdomen: Soft, No tenderness Extremities: No cyanosis, No edema Skin: No rashes, No breakdown - Results Results: Laboratory Results WBC 10.6 x10^3/uL (4.8-10.8) 03/19/17 05:30 RBC 4.14 10^6/uL (4.70-6.10) L 03/19/17 05:30 Hgb 12.1 g/dL (14.0-18.0) L 03/19/17 05:30 Hct 36.4 % (42.0-52.0) L 03/19/17 05:30 MCV 87.8 fL (80.0-94.0) 03/19/17 05:30 MCH 29.2 pg (27.0-31.0) 03/19/17 05:30 MCHC 33.3 g/dL (32.0-36.0) 03/19/17 05:30 RDW 13.5 % (12.0-15.0) 03/19/17 05:30 Plt Count 291 10^3/uL (130-450) 03/19/17 05:30 MPV 8.2 fL (7.4-11.4) 03/19/17 05:30 Neut # 6.8 10^3/uL (1.5-6.6) H 03/19/17 05:30 Lymph # 2.3 10^3/uL (1.5-3.5) 03/19/17 05:30 [place] # 1.0 10^3/uL (0.0-1.0) 03/19/17 05:30 Eos # 0.5 10^3/uL (0.0-0.7) 03/19/17 05:30 Baso # 0.1 10^3/uL (0.0-0.1) 03/19/17 05:30 Absolute Nucleated RBC 0.00 x10^3/uL 03/19/17 05:30 Nucleated RBCs 0.0 /100WBC 03/19/17 05:30 Bld Gas Analysis Time 0803/18/17 08:23 Sample Site RIGHT RADIAL 03/18/17 08:23 ABG pH 7.43 (7.35-7.45) 03/18/17 08:23 ABG pCO2 60 mmHg (34-45) H* 03/18/17 08:23 ABG pO2 84 mmHg (80-100) 03/18/17 08:23 ABG HCO3 39.1 mmol/L (22.0-26.0) H 03/18/17 08:23 ABG Total CO2 40.9 MMOL/L (21.0-29.0) H* 03/18/17 08:23 ABG O2 Saturation 96 % (94-98) 03/18/17 08:23 ABG Base Excess 12.4 mmol/L (-2.0-3.0) H 03/18/17 08:23 Avinash Test POSITIVE 03/18/17 08:23 O2 Delivery Device VENTILATOR 03/18/17 08:23 O2 Liters/Min 4.00 LPM 03/18/17 08:23 Sodium 136 mmol/L (135-145) 03/21/17 06:00 Potassium 4.1 mmol/L (3.5-5.0) 03/21/17 06:00 Chloride 91 mmol/L (101-111) L 03/21/17 06:00 Carbon Dioxide 38 mmol/L (21-32) H 03/21/17 06:00 Anion Gap 7.0 (6-13) 03/21/17 06:00 BUN 24 mg/dL (6-20) H 03/21/17 06:00 Creatinine 1.3 mg/dL (0.6-1.2) H 03/21/17 06:00 Estimated GFR (MDRD) 57 (>89) L 03/21/17 06:00 Glucose 113 mg/dL (70-100) H 03/21/17 06:00 POC Whole Bld Glucose 164 mg/dL (70 - 100) H 03/24/17 08:01 Calcium 8.8 mg/dL (8.5-10.3) 03/21/17 06:00 Total Bilirubin 0.5 mg/dL (0.2-1.0) 03/21/17 06:00 Direct Bilirubin 0.1 mg/dL (0.1-0.5) 03/21/17 06:00 AST 27 IU/L (10-42) 03/21/17 06:00 ALT 34 IU/L (10-60) 03/21/17 06:00 Alkaline Phosphatase 45 IU/L (42-121) 03/21/17 06:00 Troponin I < 0.04 ng/mL (<0.49) 03/16/17 11:57 B-Natriuretic Peptide 51 pg/mL (5-100) 03/16/17 11:57 Total Protein 5.9 g/dL (6.7-8.2) L 03/21/17 06:00 Albumin 2.8 g/dL (3.2-5.5) L 03/21/17 06:00 Globulin 3.1 g/dL (2.1-4.2) 03/21/17 06:00 - Procedures Procedures: Procedures VENOUS CATHETERIZATION NEC (05/21/14)
[2017-03-24] MEDS: ATORVASTATIN 10 MG TABLET PO SCH (22:32)
[2017-03-24] MEDS: GABAPENTIN 100 MG CAPSULE PO SCH (22:32)
[2017-03-24] MEDS: SERTRALINE 50 MG TABLET PO SCH (22:33)
[2017-03-24] MEDS: INSULIN GLARGINE 300 UNIT/3 ML PEN SUBQ SCH (22:39)
[2017-03-25] MEDS: PIPERACILLIN/TAZOBACTAM 4.5 GM in SODIUM CHLORIDE 0.9% MINIBAG 100 ML IV SCH ×4 (00:29→18:21)
[2017-03-25] MEDS: SODIUM CHLORIDE FLUSH 0.9% 10 ML SYRINGE IVP SCH ×3 (05:52→18:21)
[2017-03-25 06:07] LABS: BASOPHILS # (AUTO) 0.1 10^3/uL (0.0-0.1); BASOPHILS % (AUTO) 0.8 %; EOSINOPHILS # (AUTO) 0.3 10^3/uL (0.0-0.7); HCT - HEMATOCRIT 37.8 % (42.0-52.0); HGB - HEMOGLOBIN 12.4 g/dL (14.0-18.0); LYMPHOCYTES # (AUTO) 2.1 10^3/uL (1.5-3.5); LYMPHOCYTES % (AUTO) 26.4 %; MEAN CORPUSCULAR HEMOGLOBIN 28.7 pg (27.0-31.0); MEAN CORPUSCULAR HGB CONC 32.7 g/dL (32.0-36.0); MEAN CORPUSCULAR VOLUME 87.8 fL (80.0-94.0); MEAN PLATELET VOLUME 7.3 fL (7.4-11.4); MONOCYTES # (AUTO) 0.7 10^3/uL (0.0-1.0); NEUTROPHILS # (AUTO) 4.8 10^3/uL (1.5-6.6); NEUTROPHILS % (AUTO) 59.8 %; NUCLEATED RED BLOOD CELLS AUTO 0.1 /100WBC; RED BLOOD COUNT 4.31 10^6/uL (4.70-6.10); RED CELL DISTRIBUTION WIDTH 13.7 % (12.0-15.0); UNCORRECTED WHITE BLOOD COUNT 8.1 x10^3/uL; WHITE BLOOD COUNT 8.1 x10^3/uL (4.8-10.8)
[2017-03-25 06:20] LABS: BILIRUBIN,TOTAL 0.6 mg/dL (0.2-1.0); CALCIUM 9.1 mg/dL (8.5-10.3); CREATININE 1.4 mg/dL (0.6-1.2); POTASSIUM 3.9 mmol/L (3.5-5.0); TOTAL PROTEIN 6.1 g/dL (6.7-8.2)
[2017-03-25] MEDS: HYDROcod/ACETAM 10 MG/325 MG TABLET PO PRN ×4 (07:42→22:33)
[2017-03-25] MEDS: INSULIN ASPART 300 UNIT/3 ML PEN SUBQ SCH ×7 (08:09→22:37)
[2017-03-25] MEDS: FENOFIBRATE 48 MG TABLET PO SCH (09:20)
[2017-03-25] MEDS: FUROSEMIDE 40 MG TABLET PO SCH (09:20)
[2017-03-25] MEDS: lamoTRIgine 100 MG TABLET PO SCH (09:20)
[2017-03-25] MEDS: MULTIVITAMIN TABLET PO SCH (09:20)
[2017-03-25] MEDS: SACCHAROMYCES BOULARDII 250 MG CAPSULE PO SCH ×2 (09:20→18:20)
[2017-03-25] MEDS: levoFLOXacin 250 MG TABLET PO SCH (09:21)
[2017-03-25] MEDS: SENNA 8.6 MG TABLET PO SCH (09:21)
[2017-03-25] MEDS: AMIODARONE 200 MG TABLET PO SCH ×2 (09:21→22:35)
[2017-03-25] MEDS: ENOXAPARIN 40 MG/0.4 ML SYRINGE SUBQ SCH (09:22)
[2017-03-25] MEDS: ASPIRIN EC 81 MG TABLET PO SCH (09:22)
[2017-03-25] MEDS: DOCUSATE SODIUM 250 MG CAPSULE PO SCH (09:22)
[2017-03-25] MEDS: POLYETHYLENE GLYCOL 3350 17 GM PACKET PO SCH (09:23)
[2017-03-25] MEDS: OMEGA-3 ACID ETHYL ESTERS 1 GM CAPSULE PO SCH ×2 (09:23→22:34)
[2017-03-25] MEDS: LISINOPRIL 5 MG TABLET PO SCH ×2 (09:23→22:37)
[2017-03-25] MEDS: NYSTATIN POWDER 15 GM TOP SCH ×2 (10:00→22:44)
[2017-03-25] MEDS: NYSTATIN CREAM 15 GM TUBE TOP SCH ×2 (10:00→22:45)
[2017-03-25] MEDS: MUPIROCIN 2% OINT 22 GM TUBE TOP SCH ×2 (10:09→22:44)
--- NOTE | 2017-03-25 14:36 | PROVIDER PROGRESS NOTE ---
Assessment/Plan - Problem List (1) Fracture of distal end of tibia Assessment/Plan: Rai is hanging out marking time while his fracture heals. He is none weight bearing,and he has a blister of L heel that isw looking stationary but has not worsened. (2) Pneumonia Assessment/Plan: He has been on the Levaquin for nine days. Will get CXR tomorrow And consider D/ C after tomorrow. - Current Meds Current Meds: Current Medications Generic Name Dose Route Start Last Admin Trade Name Freq PRN Reason Stop Dose Admin Acetaminophen/Hydrocodone Bitart 1 tab 03/18/17 15:46 03/21/17 00:43 [place] 10 Mg/325 Mg PO 1 tab Q4HR PRN Administration PAIN Acetaminophen/Hydrocodone Bitart 2 tab 03/18/17 15:46 03/25/17 12:55 [place] 10 Mg/325 Mg PO 2 tab Q4HR PRN Administration PAIN Aspirin 81 mg 03/21/17 09:00 03/25/17 09:22 Ecotrin PO 81 mg DAILY ARDEN Administration Atorvastatin Calcium 10 mg 03/15/17 21:00 03/24/17 22:32 Lipitor PO 10 mg QPM ARDEN Administration Baclofen 10 mg 03/15/17 16:40 03/20/17 09:25 Lioresal PO 10 mg TID PRN Administration Cramp Docusate Sodium 250 - 500 mg 03/17/17 09:00 03/25/17 09:22 Colace 250mg Capsule PO 250 mg DAILY ARDEN Administration Enoxaparin Sodium 40 mg 03/17/17 09:00 03/25/17 09:22 Lovenox SUBQ 40 mg DAILY ARDEN Administration Fenofibrate 144 mg 03/16/17 09:00 03/25/17 09:20 Tricor PO 144 mg DAILY ARDEN Administration Furosemide 80 mg 03/16/17 09:00 03/25/17 09:20 Lasix PO 80 mg DAILY ARDEN Administration Gabapentin 200 mg 03/15/17 21:00 03/24/17 22:32 Neurontin PO 200 mg QPM ARDEN Administration Piperacillin Sod/Tazobactam 100 mls @ 100 mls/hr 03/16/17 18:00 03/25/17 11:49 Sod 4.5 gm/ Sodium Chloride IV 100 mls/hr Q6HR ARDEN Administration Insulin Aspart 40 unit 03/15/17 17:00 03/25/17 11:46 Novolog SUBQ 40 unit TIDWM ARDEN Administration Insulin Aspart 2 - 10 unit 03/19/17 17:00 03/25/17 11:46 Novolog SUBQ 4 unit 0800,1200,1700,2100 ARDEN Administration Protocol Insulin Glargine 76 unit 03/15/17 21:00 03/24/17 22:39 Lantus Solostar SUBQ 76 unit QPM ARDEN Administration Lamotrigine 100 mg 03/20/17 09:00 03/25/17 09:20 Lamictal PO 03/26/17 09:01 100 mg DAILY ARDEN Administration Levofloxacin 750 mg 03/16/17 14:00 03/25/17 09:21 Levaquin PO 750 mg DAILY ARDEN Administration Lisinopril 10 mg 03/15/17 21:00 03/25/17 09:23 Zestril PO Not Given BID ARDEN Multivitamins 1 tab 03/16/17 08:00 03/25/17 09:20 Theragran PO 1 tab DAILYWM ARDEN Administration Mupirocin 1 applic 03/21/17 21:00 03/25/17 10:09 Bactroban 2% Oint TOP 1 applic BID ARDEN Administration Nystatin 1 applic 03/19/17 14:00 03/25/17 10:00 Mycostatin Cream TOP 1 applic BID ARDEN Administration Nystatin 1 applic 03/19/17 14:00 03/25/17 10:00 Nystop TOP 1 applic BID ARDEN Administration Xtfzn-6-Eorg Ethyl Esters 2 gm 03/15/17 21:00 03/25/17 09:23 Lovaza PO 2 gm BID ARDEN Administration Polyethylene Glycol 17 gm 03/17/17 09:00 03/25/17 09:23 Miralax PO 17 gm DAILY ARDEN Administration Saccharomyces Boulardii 250 mg 03/16/17 17:00 03/25/17 09:20 Florastor PO 250 mg BIDWM ARDEN Administration Senna 8.6 - 17.2 mg 03/17/17 09:00 03/25/17 09:21 Senokot PO 8.6 mg DAILY ARDEN Administration Sertraline HCl 300 mg 03/15/17 21:00 03/24/17 22:33 Zoloft PO 300 mg QPM ARDEN Administration Sodium Chloride 10 ml 03/16/17 13:55 03/24/17 11:05 Normal Saline Flush 0.9% IVP 10 ml PRN PRN Administration NEEDED PER PROVIDER ORDERS Sodium Chloride 10 ml 03/16/17 14:00 03/25/17 05:52 Normal Saline Flush 0.9% IVP 10 ml Q8HR ARDEN Administration - Lab Result Fish Bone Diagrams: 03/25/17 05:45 03/25/17 05:45 Subjective - Subjective Patient Reports: Feeling Better, Resting Comfortably Nursing Reports: No Complaints Objective Vital Signs: Vital Signs - 24 hr 03/24/17 03/25/17 03/25/17 16:10 01:28 07:35 Temperature 36.8 C 36.7 C 36.5 C Heart Rate [ 73 77 77 Brachial] Respiratory 18 18 20 Rate Blood Pressure 95/65 96/60 104/68 [Left Brachial artery] O2 Saturation 96 97 94 Oxygen O2 Source [Without Activity] trach blow by O2 Source trac collar I&O (Last 24 Hrs): Intake and Output Totals x24h 03/23/17 03/24/17 03/25/17 23:59 23:59 23:59 Intake Total 3460 2190 1520 Output Total 4350 9160 8815 [id number] -3480 [phone] General: Alert, Oriented x3, Cooperative HEENT: PERRLA Neck: No JVD, No thyromegaly Neuro: Alert, Oriented Times 3 Cardiovascular: Regular rate, No murmurs Respiratory: Chest non-tender, No respiratory distress, Breath sounds nml Abdomen: Normal bowel sounds, Soft Extremities: Other (he has edema 2+ and L heel has a blister, unchanged.) - Results Results: Laboratory Results WBC 8.1 x10^3/uL (4.8-10.8) 03/25/17 05:45 RBC 4.31 10^6/uL (4.70-6.10) L 03/25/17 05:45 Hgb 12.4 g/dL (14.0-18.0) L 03/25/17 05:45 Hct 37.8 % (42.0-52.0) L 03/25/17 05:45 MCV 87.8 fL (80.0-94.0) 03/25/17 05:45 MCH 28.7 pg (27.0-31.0) 03/25/17 05:45 MCHC 32.7 g/dL (32.0-36.0) 03/25/17 05:45 RDW 13.7 % (12.0-15.0) 03/25/17 05:45 Plt Count 370 10^3/uL (130-450) 03/25/17 05:45 MPV 7.3 fL (7.4-11.4) L 03/25/17 05:45 Neut # 4.8 10^3/uL (1.5-6.6) 03/25/17 05:45 Lymph # 2.1 10^3/uL (1.5-3.5) 03/25/17 05:45 [place] # 0.7 10^3/uL (0.0-1.0) 03/25/17 05:45 Eos # 0.3 10^3/uL (0.0-0.7) 03/25/17 05:45 Baso # 0.1 10^3/uL (0.0-0.1) 03/25/17 05:45 Absolute Nucleated RBC 0.01 x10^3/uL 03/25/17 05:45 Nucleated RBCs 0.1 /100WBC 03/25/17 05:45 Bld Gas Analysis Time 0803/18/17 08:23 Sample Site RIGHT RADIAL 03/18/17 08:23 ABG pH 7.43 (7.35-7.45) 03/18/17 08:23 ABG pCO2 60 mmHg (34-45) H* 03/18/17 08:23 ABG pO2 84 mmHg (80-100) 03/18/17 08:23 ABG HCO3 39.1 mmol/L (22.0-26.0) H 03/18/17 08:23 ABG Total CO2 40.9 MMOL/L (21.0-29.0) H* 03/18/17 08:23 ABG O2 Saturation 96 % (94-98) 03/18/17 08:23 ABG Base Excess 12.4 mmol/L (-2.0-3.0) H 03/18/17 08:23 Avinash Test POSITIVE 03/18/17 08:23 O2 Delivery Device VENTILATOR 03/18/17 08:23 O2 Liters/Min 4.00 LPM 03/18/17 08:23 Sodium 138 mmol/L (135-145) 03/25/17 05:45 Potassium 3.9 mmol/L (3.5-5.0) 03/25/17 05:45 Chloride 94 mmol/L (101-111) L 03/25/17 05:45 Carbon Dioxide 35 mmol/L (21-32) H 03/25/17 05:45 Anion Gap 9.0 (6-13) 03/25/17 05:45 BUN 20 mg/dL (6-20) 03/25/17 05:45 Creatinine 1.4 mg/dL (0.6-1.2) H 03/25/17 05:45 Estimated GFR (MDRD) 52 (>89) L 03/25/17 05:45 Glucose 157 mg/dL (70-100) H 03/25/17 05:45 POC Whole Bld Glucose 224 mg/dL (70 - 100) H 03/25/17 10:58 Calcium 9.1 mg/dL (8.5-10.3) 03/25/17 05:45 Total Bilirubin 0.6 mg/dL (0.2-1.0) 03/25/17 05:45 Direct Bilirubin 0.1 mg/dL (0.1-0.5) 03/21/17 06:00 AST 22 IU/L (10-42) 03/25/17 05:45 ALT 22 IU/L (10-60) 03/25/17 05:45 Alkaline Phosphatase 47 IU/L (42-121) 03/25/17 05:45 Troponin I < 0.04 ng/mL (<0.49) 03/16/17 11:57 B-Natriuretic Peptide 51 pg/mL (5-100) 03/16/17 11:57 Total Protein 6.1 g/dL (6.7-8.2) L 03/25/17 05:45 Albumin 3.1 g/dL (3.2-5.5) L 03/25/17 05:45 Globulin 3.0 g/dL (2.1-4.2) 03/25/17 05:45 Albumin/Globulin Ratio 1.0 (1.0-2.2) 03/25/17 05:45 - Procedures Procedures: Procedures VENOUS CATHETERIZATION NEC (05/21/14)
[2017-03-25] MEDS: SERTRALINE 50 MG TABLET PO SCH (22:32)
[2017-03-25] MEDS: ATORVASTATIN 10 MG TABLET PO SCH (22:33)
[2017-03-25] MEDS: GABAPENTIN 100 MG CAPSULE PO SCH (22:35)
[2017-03-25] MEDS: INSULIN GLARGINE 300 UNIT/3 ML PEN SUBQ SCH (22:38)
[2017-03-26] MEDS: PIPERACILLIN/TAZOBACTAM 4.5 GM in SODIUM CHLORIDE 0.9% MINIBAG 100 ML IV SCH ×3 (00:03→15:03)
[2017-03-26] MEDS: SODIUM CHLORIDE FLUSH 0.9% 10 ML SYRINGE IVP PRN (00:04)
[2017-03-26] MEDS: HYDROcod/ACETAM 10 MG/325 MG TABLET PO PRN ×5 (02:38→22:30)
[2017-03-26] MEDS: SODIUM CHLORIDE FLUSH 0.9% 10 ML SYRINGE IVP SCH ×3 (06:05→22:41)
[2017-03-26] MEDS: INSULIN ASPART 300 UNIT/3 ML PEN SUBQ SCH ×7 (08:06→22:37)
[2017-03-26] MEDS: levoFLOXacin 250 MG TABLET PO SCH (10:01)
[2017-03-26] MEDS: POLYETHYLENE GLYCOL 3350 17 GM PACKET PO SCH (10:01)
[2017-03-26] MEDS: FUROSEMIDE 40 MG TABLET PO SCH ×2 (10:02→22:31)
[2017-03-26] MEDS: MULTIVITAMIN TABLET PO SCH (10:02)
[2017-03-26] MEDS: AMIODARONE 200 MG TABLET PO SCH ×2 (10:02→22:33)
[2017-03-26] MEDS: SACCHAROMYCES BOULARDII 250 MG CAPSULE PO SCH ×2 (10:02→17:28)
[2017-03-26] MEDS: lamoTRIgine 100 MG TABLET PO SCH (10:03)
[2017-03-26] MEDS: FENOFIBRATE 48 MG TABLET PO SCH (10:03)
[2017-03-26] MEDS: ASPIRIN EC 81 MG TABLET PO SCH (10:03)
[2017-03-26] MEDS: MUPIROCIN 2% OINT 22 GM TUBE TOP SCH ×2 (10:04→22:38)
[2017-03-26] MEDS: ENOXAPARIN 40 MG/0.4 ML SYRINGE SUBQ SCH (10:04)
[2017-03-26] MEDS: OMEGA-3 ACID ETHYL ESTERS 1 GM CAPSULE PO SCH ×2 (10:04→22:31)
[2017-03-26] MEDS: LISINOPRIL 5 MG TABLET PO SCH ×2 (10:04→22:38)
[2017-03-26] MEDS: NYSTATIN POWDER 15 GM TOP SCH ×2 (10:04→22:45)
[2017-03-26] MEDS: DOCUSATE SODIUM 250 MG CAPSULE PO SCH (10:04)
[2017-03-26] MEDS: NYSTATIN CREAM 15 GM TUBE TOP SCH ×2 (10:04→22:45)
[2017-03-26] MEDS: SENNA 8.6 MG TABLET PO SCH (10:05)
--- NOTE | 2017-03-26 11:55 | PROVIDER PROGRESS NOTE ---
Assessment/Plan - Problem List (1) Fracture of distal end of tibia Assessment/Plan: No change, no xray indicated yet (2) Pneumonia Assessment/Plan: He has had no fever no cough except ususal to clear his trach. CXR today If OK will D/C antibiotic. - Current Meds Current Meds: Current Medications Generic Name Dose Route Start Last Admin Trade Name Freq PRN Reason Stop Dose Admin Acetaminophen/Hydrocodone Bitart 1 tab 03/18/17 15:46 03/21/17 00:43 [place] 10 Mg/325 Mg PO 1 tab Q4HR PRN Administration PAIN Acetaminophen/Hydrocodone Bitart 2 tab 03/18/17 15:46 03/26/17 08:09 [place] 10 Mg/325 Mg PO 2 tab Q4HR PRN Administration PAIN Amiodarone HCl 200 mg 03/25/17 21:00 03/26/17 10:02 Pacerone PO 03/30/17 09:01 200 mg BID ARDEN Administration Aspirin 81 mg 03/21/17 09:00 03/26/17 10:03 Ecotrin PO 81 mg DAILY ARDEN Administration Atorvastatin Calcium 10 mg 03/15/17 21:00 03/25/17 22:33 Lipitor PO 10 mg QPM ARDEN Administration Baclofen 10 mg 03/15/17 16:40 03/20/17 09:25 Lioresal PO 10 mg TID PRN Administration Cramp Docusate Sodium 250 - 500 mg 03/17/17 09:00 03/26/17 10:04 Colace 250mg Capsule PO 250 mg DAILY ARDEN Administration Enoxaparin Sodium 40 mg 03/17/17 09:00 03/26/17 10:04 Lovenox SUBQ 40 mg DAILY ARDEN Administration Fenofibrate 144 mg 03/16/17 09:00 03/26/17 10:03 Tricor PO 144 mg DAILY ARDEN Administration Furosemide 80 mg 03/16/17 09:00 03/26/17 10:02 Lasix PO 80 mg DAILY ARDEN Administration Gabapentin 200 mg 03/15/17 21:00 03/25/17 22:35 Neurontin PO 200 mg QPM ARDEN Administration Piperacillin Sod/Tazobactam 100 mls @ 100 mls/hr 03/16/17 18:00 03/26/17 06:05 Sod 4.5 gm/ Sodium Chloride IV 100 mls/hr Q6HR ARDEN Administration Insulin Aspart 40 unit 03/15/17 17:00 03/26/17 08:06 Novolog SUBQ 40 unit TIDWM ARDEN Administration Insulin Aspart 2 - 10 unit 03/19/17 17:00 03/26/17 08:06 Novolog SUBQ 2 unit 0800,1200,1700,2100 ARDEN Administration Protocol Insulin Glargine 76 unit 03/15/17 21:00 03/25/17 22:38 Lantus Solostar SUBQ 76 unit QPM ARDEN Administration Levofloxacin 750 mg 03/16/17 14:00 03/26/17 10:01 Levaquin PO 750 mg DAILY ARDEN Administration Lisinopril 10 mg 03/15/17 21:00 03/26/17 10:04 Zestril PO Not Given BID ARDEN Multivitamins 1 tab 03/16/17 08:00 03/26/17 10:02 Theragran PO 1 tab DAILYWM ARDEN Administration Mupirocin 1 applic 03/21/17 21:00 03/26/17 10:04 Bactroban 2% Oint TOP 1 applic BID ARDEN Administration Nystatin 1 applic 03/19/17 14:00 03/26/17 10:04 Mycostatin Cream TOP 1 applic BID ARDEN Administration Nystatin 1 applic 03/19/17 14:00 03/26/17 10:04 Nystop TOP 1 applic BID ARDEN Administration [place]ubj-[place] Ethyl Esters 2 gm 03/15/17 21:00 03/26/17 10:04 Lovaza PO 2 gm BID ARDEN Administration Polyethylene Glycol 17 gm 03/17/17 09:00 03/26/17 10:01 Miralax PO 17 gm DAILY ARDEN Administration Saccharomyces Boulardii 250 mg 03/16/17 17:00 03/26/17 10:02 Florastor PO 250 mg BIDWM ARDEN Administration Senna 8.6 - 17.2 mg 03/17/17 09:00 03/26/17 10:05 Senokot PO Not Given DAILY ARDEN Sertraline HCl 300 mg 03/15/17 21:00 03/25/17 22:32 Zoloft PO 300 mg QPM ARDEN Administration Sodium Chloride 10 ml 03/16/17 13:55 03/26/17 00:04 Normal Saline Flush 0.9% IVP 10 ml PRN PRN Administration NEEDED PER PROVIDER ORDERS Sodium Chloride 10 ml 03/16/17 14:00 03/26/17 06:05 Normal Saline Flush 0.9% IVP 10 ml Q8HR ARDEN Administration - Lab Result Fish Bone Diagrams: 03/25/17 05:45 03/25/17 05:45 Subjective - Subjective Patient Reports: Resting Comfortably Nursing Reports: No Complaints Objective Vital Signs: Vital Signs - 24 hr 03/25/17 03/26/17 03/26/17 17:34 00:25 07:35 Temperature 36.9 C 36.9 C 36.4 C L Heart Rate [ 75 74 74 Brachial] Respiratory 20 20 16 Rate Blood Pressure 100/63 100/64 102/69 [Left Brachial artery] O2 Saturation 97 98 98 Oxygen O2 Source [Without Activity] trach blow by O2 Source trac collar I&O (Last 24 Hrs): Intake and Output Totals x24h 03/24/17 03/25/17 03/26/17 23:59 23:59 23:59 Intake Total 2190 2445 640 Output Total 4625 5000 1550 Balance -2435 -2555 -910 General: Alert, Oriented x3, Cooperative HEENT: PERRLA Neck: No JVD Neuro: Alert, Oriented Times 3 Cardiovascular: Regular rate, No murmurs Respiratory: Chest non-tender, No respiratory distress, Breath sounds nml Abdomen: Normal bowel sounds, Soft Skin: No significant lesion (He has the R heel blister which is unchanged. No signs of infection.) - Results Results: Laboratory Results WBC 8.1 x10^3/uL (4.8-10.8) 03/25/17 05:45 RBC 4.31 10^6/uL (4.70-6.10) L 03/25/17 05:45 Hgb 12.4 g/dL (14.0-18.0) L 03/25/17 05:45 Hct 37.8 % (42.0-52.0) L 03/25/17 05:45 MCV 87.8 fL (80.0-94.0) 03/25/17 05:45 MCH 28.7 pg (27.0-31.0) 03/25/17 05:45 MCHC 32.7 g/dL (32.0-36.0) 03/25/17 05:45 RDW 13.7 % (12.0-15.0) 03/25/17 05:45 Plt Count 370 10^3/uL (130-450) 03/25/17 05:45 MPV 7.3 fL (7.4-11.4) L 03/25/17 05:45 Neut # 4.8 10^3/uL (1.5-6.6) 03/25/17 05:45 Lymph # 2.1 10^3/uL (1.5-3.5) 03/25/17 05:45 [place] # 0.7 10^3/uL (0.0-1.0) 03/25/17 05:45 Eos # 0.3 10^3/uL (0.0-0.7) 03/25/17 05:45 Baso # 0.1 10^3/uL (0.0-0.1) 03/25/17 05:45 Absolute Nucleated RBC 0.01 x10^3/uL 03/25/17 05:45 Nucleated RBCs 0.1 /100WBC 03/25/17 05:45 Bld Gas Analysis Time 82203/18/17 08:23 Sample Site RIGHT RADIAL 03/18/17 08:23 ABG pH 7.43 (7.35-7.45) 03/18/17 08:23 ABG pCO2 60 mmHg (34-45) H* 03/18/17 08:23 ABG pO2 84 mmHg (80-100) 03/18/17 08:23 ABG HCO3 39.1 mmol/L (22.0-26.0) H 03/18/17 08:23 ABG Total CO2 40.9 MMOL/L (21.0-29.0) H* 03/18/17 08:23 ABG O2 Saturation 96 % (94-98) 03/18/17 08:23 ABG Base Excess 12.4 mmol/L (-2.0-3.0) H 03/18/17 08:23 Avinash Test POSITIVE 03/18/17 08:23 O2 Delivery Device VENTILATOR 03/18/17 08:23 O2 Liters/Min 4.00 LPM 03/18/17 08:23 Sodium 138 mmol/L (135-145) 03/25/17 05:45 Potassium 3.9 mmol/L (3.5-5.0) 03/25/17 05:45 Chloride 94 mmol/L (101-111) L 03/25/17 05:45 Carbon Dioxide 35 mmol/L (21-32) H 03/25/17 05:45 Anion Gap 9.0 (6-13) 03/25/17 05:45 BUN 20 mg/dL (6-20) 03/25/17 05:45 Creatinine 1.4 mg/dL (0.6-1.2) H 03/25/17 05:45 Estimated GFR (MDRD) 52 (>89) L 03/25/17 05:45 Glucose 157 mg/dL (70-100) H 03/25/17 05:45 POC Whole Bld Glucose 199 mg/dL (70 - 100) H 03/26/17 11:29 Calcium 9.1 mg/dL (8.5-10.3) 03/25/17 05:45 Total Bilirubin 0.6 mg/dL (0.2-1.0) 03/25/17 05:45 Direct Bilirubin 0.1 mg/dL (0.1-0.5) 03/21/17 06:00 AST 22 IU/L (10-42) 03/25/17 05:45 ALT 22 IU/L (10-60) 03/25/17 05:45 Alkaline Phosphatase 47 IU/L (42-121) 03/25/17 05:45 Troponin I < 0.04 ng/mL (<0.49) 03/16/17 11:57 B-Natriuretic Peptide 51 pg/mL (5-100) 03/16/17 11:57 Total Protein 6.1 g/dL (6.7-8.2) L 03/25/17 05:45 Albumin 3.1 g/dL (3.2-5.5) L 03/25/17 05:45 Globulin 3.0 g/dL (2.1-4.2) 03/25/17 05:45 Albumin/Globulin Ratio 1.0 (1.0-2.2) 03/25/17 05:45 - Procedures Procedures: Procedures VENOUS CATHETERIZATION NEC (05/21/14)
--- NOTE | 2017-03-26 14:11 | XRAY Preliminary Report ---
Exam: XR Chest 1 View IMPRESSION: 1. No focal consolidation. 2. Subtle increased interstitial markings. [facility] SITE ID: [id number]
--- NOTE | 2017-03-26 14:14 | XRAY Report ---
EXAM: CHEST RADIOGRAPHY EXAM DATE: 03/26/2017 01:24 PM. CLINICAL HISTORY: F/U pneumonia. COMPARISON: Chest radiograph dated 03/16/2017. TECHNIQUE: 1 view. FINDINGS: Lungs/Pleura: Subtle increased interstitial markings. No focal opacities evident. No pneumothorax. Mediastinum: Cardiomegaly with no pulmonary edema. Other: Tracheostomy tube in place. Fluid in the azygos lobe fissure. IMPRESSION: 1. No focal consolidation. 2. Subtle increased interstitial markings. [facility] Referring Provider Line: [phone] SITE ID: [id number]
[2017-03-26] MEDS: SERTRALINE 50 MG TABLET PO SCH (22:32)
[2017-03-26] MEDS: ATORVASTATIN 10 MG TABLET PO SCH (22:33)
[2017-03-26] MEDS: GABAPENTIN 100 MG CAPSULE PO SCH (22:33)
[2017-03-26] MEDS: INSULIN GLARGINE 300 UNIT/3 ML PEN SUBQ SCH (22:40)
[2017-03-27] MEDS: SODIUM CHLORIDE FLUSH 0.9% 10 ML SYRINGE IVP SCH ×3 (05:52→22:35)
[2017-03-27] MEDS: NYSTATIN POWDER 15 GM TOP SCH ×2 (09:00→22:44)
[2017-03-27] MEDS: NYSTATIN CREAM 15 GM TUBE TOP SCH ×2 (09:00→22:44)
[2017-03-27] MEDS: ENOXAPARIN 40 MG/0.4 ML SYRINGE SUBQ SCH (09:01)
[2017-03-27] MEDS: OMEGA-3 ACID ETHYL ESTERS 1 GM CAPSULE PO SCH ×2 (09:01→22:37)
[2017-03-27] MEDS: FENOFIBRATE 48 MG TABLET PO SCH (09:01)
[2017-03-27] MEDS: FUROSEMIDE 40 MG TABLET PO SCH ×3 (09:01→22:45)
[2017-03-27] MEDS: LISINOPRIL 5 MG TABLET PO SCH ×2 (09:02→22:45)
[2017-03-27] MEDS: HYDROcod/ACETAM 10 MG/325 MG TABLET PO PRN ×3 (09:02→20:35)
[2017-03-27] MEDS: AMIODARONE 200 MG TABLET PO SCH ×2 (09:02→22:45)
[2017-03-27] MEDS: SENNA 8.6 MG TABLET PO SCH (09:02)
[2017-03-27] MEDS: ASPIRIN EC 81 MG TABLET PO SCH (09:02)
[2017-03-27] MEDS: SACCHAROMYCES BOULARDII 250 MG CAPSULE PO SCH ×2 (09:02→18:18)
[2017-03-27] MEDS: MULTIVITAMIN TABLET PO SCH (09:02)
[2017-03-27] MEDS: DOCUSATE SODIUM 250 MG CAPSULE PO SCH (09:02)
[2017-03-27] MEDS: INSULIN ASPART 300 UNIT/3 ML PEN SUBQ SCH ×7 (09:08→22:35)
[2017-03-27] MEDS: MUPIROCIN 2% OINT 22 GM TUBE TOP SCH ×2 (09:23→22:44)
[2017-03-27 10:06] LABS: BASOPHILS # (AUTO) 0.1 10^3/uL (0.0-0.1); BASOPHILS % (AUTO) 0.8 %; EOSINOPHILS # (AUTO) 0.3 10^3/uL (0.0-0.7); EOSINOPHILS % (AUTO) 3.7 %; HCT - HEMATOCRIT 38.7 % (42.0-52.0); HGB - HEMOGLOBIN 13.2 g/dL (14.0-18.0); LYMPHOCYTES # (AUTO) 1.7 10^3/uL (1.5-3.5); LYMPHOCYTES % (AUTO) 20.4 %; MEAN CORPUSCULAR HEMOGLOBIN 29.3 pg (27.0-31.0); MEAN CORPUSCULAR VOLUME 86.2 fL (80.0-94.0); MEAN PLATELET VOLUME 7.2 fL (7.4-11.4); MONOCYTES # (AUTO) 0.6 10^3/uL (0.0-1.0); MONOCYTES % (AUTO) 7.4 %; NEUTROPHILS # (AUTO) 5.6 10^3/uL (1.5-6.6); NEUTROPHILS % (AUTO) 67.7 %; RED BLOOD COUNT 4.49 10^6/uL (4.70-6.10); RED CELL DISTRIBUTION WIDTH 13.6 % (12.0-15.0); UNCORRECTED WHITE BLOOD COUNT 8.2 x10^3/uL; WHITE BLOOD COUNT 8.2 x10^3/uL (4.8-10.8)
[2017-03-27] MEDS: POLYETHYLENE GLYCOL 3350 17 GM PACKET PO SCH (10:15)
[2017-03-27 10:29] LABS: CALCIUM 9.4 mg/dL (8.5-10.3); CREATININE 1.4 mg/dL (0.6-1.2); POTASSIUM 4.2 mmol/L (3.5-5.0)
--- NOTE | 2017-03-27 16:27 | PROVIDER PROGRESS NOTE ---
Subjective - Prog Note Date Prog Note Date: 03/27/17 Prog Note Time: 16:25 - Subjective Subjective: he is depressed. crying on 03/25 and misses his mom. really wants to go home. but can't bc of physical limitations. so far no ander with finding placement Current Medications - Current Medications Current Medications: Active Medications Acetaminophen/Hydrocodone Bitart ([place] 10 Mg/325 Mg) 1 tab PO Q4HR PRN PRN Reason: PAIN Last Admin: 03/21/17 00:43 Dose: 1 tab Acetaminophen/Hydrocodone Bitart ([place] 10 Mg/325 Mg) 2 tab PO Q4HR PRN PRN Reason: PAIN Last Admin: 03/27/17 14:57 Dose: 2 tab Amiodarone HCl ([place]) 200 mg PO BID [facility] Stop: 03/30/17 09:01 Last Admin: 03/27/17 09:02 Dose: 200 mg Amiodarone HCl ([place]one) 200 mg PO DAILY [facility] Aspirin (Ecotrin) 81 mg PO DAILY [facility] Last Admin: 03/27/17 09:02 Dose: 81 mg Atorvastatin Calcium (Lipitor) 10 mg PO QPM [facility] Last Admin: 03/26/17 22:33 Dose: 10 mg Baclofen (Lioresal) 10 mg PO TID PRN PRN Reason: Cramp Last Admin: 03/20/17 09:25 Dose: 10 mg Docusate Sodium (Colace 250mg Capsule) 250 - 500 mg PO DAILY [facility] Last Admin: 03/27/17 09:02 Dose: 250 mg Enoxaparin Sodium (Lovenox) 40 mg SUBQ DAILY [facility] Last Admin: 03/27/17 09:01 Dose: 40 mg Fenofibrate (Tricor) 144 mg PO DAILY [facility] Last Admin: 03/27/17 09:01 Dose: 144 mg Furosemide (Lasix) 80 mg PO DAILY [facility] Last Admin: 03/27/17 09:01 Dose: 80 mg Furosemide (Lasix) 40 mg PO BID [facility] Last Admin: 03/27/17 09:06 Dose: Not Given Gabapentin (Neurontin) 200 mg PO QPM [facility] Last Admin: 03/26/17 22:33 Dose: 200 mg Insulin Aspart (Novolog) 40 unit SUBQ TIDWM [facility] Last Admin: 03/27/17 12:24 Dose: 40 unit Insulin Aspart (Novolog) 2 - 10 unit SUBQ 0800,1200,1700,2100 [facility] PRN Reason: Protocol Last Admin: 03/27/17 12:25 Dose: 2 unit Insulin Glargine (Lantus Solostar) 76 unit SUBQ QPM [facility] Last Admin: 03/26/17 22:40 Dose: 76 unit Lisinopril (Zestril) 10 mg PO BID [facility] Last Admin: 03/27/17 09:02 Dose: 10 mg Multivitamins (Theragran) 1 tab PO DAILYWM [facility] Last Admin: 03/27/17 09:02 Dose: 1 tab Mupirocin (Bactroban 2% Oint) 1 applic TOP BID [facility] Last Admin: 03/27/17 09:23 Dose: 1 applic Nystatin (Mycostatin Cream) 1 applic TOP BID [facility] Last Admin: 03/27/17 09:00 Dose: 1 applic Nystatin (Nystop) 1 applic TOP BID [facility] Last Admin: 03/27/17 09:00 Dose: 1 applic [id number] Ethyl Esters (Lovaza) 2 gm PO BID [facility] Last Admin: 03/27/17 09:01 Dose: 2 gm Polyethylene Glycol (Miralax) 17 gm PO DAILY [facility] Last Admin: 03/27/17 10:15 Dose: 17 gm Saccharomyces Boulardii (Florastor) 250 mg PO BIDWM [facility] Last Admin: 03/27/17 09:02 Dose: 250 mg Senna (Senokot) 8.6 - 17.2 mg PO DAILY [facility] Last Admin: 03/27/17 09:02 Dose: 8.6 mg Sertraline HCl (Zoloft) 300 mg PO QPM [facility] Last Admin: 03/26/17 22:32 Dose: 300 mg Sodium Chloride (Normal Saline Flush 0.9%) 10 ml IVP PRN PRN PRN Reason: NEEDED PER PROVIDER ORDERS Last Admin: 03/26/17 00:04 Dose: 10 ml Sodium Chloride (Normal Saline Flush 0.9%) 10 ml IVP Q8HR [facility] Last Admin: 03/27/17 13:36 Dose: 10 ml Insulin Glargine,Hum.rec.anlog [Lantus Solostar] 76 unit SQ QPM 03/20/13 Lisinopril 10 mg PO BID 03/20/13 Lovastatin 40 mg PO QPM 03/20/13 Multivitamin [Multivitamins] 1 each PO DAILY 03/20/13 metFORMIN [Glucophage] 1,000 mg PO BIDWM 03/20/13 Fenofibrate 160 mg PO DAILY 06/10/14 Aspirin 81 mg PO DAILY 10/04/16 HYDROcodone/ACET 10/325 [[place] 10 mg/325 mg] 1 tab PO QID 10/04/16 Insulin Aspart [Novolog Flexpen] 40 unit SUBQ TIDWM 10/04/16 Furosemide [Lasix] 80 mg PO DAILY 03/11/17 Gabapentin 100 - 200 mg PO QPM 03/11/17 Icosapent Ethyl [Vascepa] 2 gm PO BID 03/12/17 Sertraline HCl [Zoloft] 300 mg PO QPM 03/12/17 Objective - Vital Signs/Intake & Output Reviewed Vital Signs: Yes Vital Signs: Vital Signs x48h Temp Pulse Resp BP Pulse Ox 03/27/17 09:18 36.6 C 78 16 117/76 97 Intake & Output: Intake & Output 03/24/17 03/25/17 03/26/17 03/27/17 23:59 23:59 23:59 23:59 Intake Total 2190 2445 2060 2140 Output Total 4625 9805 3190 2475 Balance -2435 -2555 -2840 -335 - Objective General Appearance: positive: No acute distress, Alert, Other (super obese white male) Eyes Bilateral: positive: PERRL ENT: positive: Pharynx nml Neck: negative: Stiff neck, Carotid bruit Respiratory: positive: Chest non-tender, Rhonchi (from trach) Cardiovascular: positive: Regular rate & rhythm. negative: Gallop/S4 Abdomen: positive: Non-tender, Other (hugely obese) Extremities: positive: Pedal edema (minimal), Other (the web spaces between toes are much improved and now minimal cracks with white skin. no redness. the suture line under 2nd toe closed and healed.) Neurologic/Psychiatric: positive: Oriented x3, CN's nml (2-12). negative: Motor nml (weal, general), Facial droop - Lab Results Fish Bones: 03/27/17 09:59 03/27/17 09:59 Other Labs: Lab Results x24hrs 03/27/17 03/27/17 03/27/17 Range/Units 11:52 09:59 09:59 WBC 8.2 (4.8-10.8) x10^3/uL RBC 4.49 L (4.70-6.10) 10^6/uL Hgb 13.2 L (14.0-18.0) g/dL Hct 38.7 L (42.0-52.0) % MCV 86.2 (80.0-94.0) fL MCH 29.3 (27.0-31.0) pg MCHC 34.0 (32.0-36.0) g/dL RDW 13.6 (12.0-15.0) % Plt Count 397 (130-450) 10^3/uL MPV 7.2 L (7.4-11.4) fL Neut # 5.6 (1.5-6.6) 10^3/uL Lymph # 1.7 (1.5-3.5) 10^3/uL [place] # 0.6 (0.0-1.0) 10^3/uL Eos # 0.3 (0.0-0.7) 10^3/uL Baso # 0.1 (0.0-0.1) 10^3/uL Absolute Nucleated RBC 0.00 x10^3/uL Nucleated RBCs 0.0 /100WBC Sodium 137 (135-145) mmol/L Potassium 4.2 (3.5-5.0) mmol/L Chloride 93 L (101-111) mmol/L Carbon Dioxide 35 H (21-32) mmol/L Anion Gap 9.0 (6-13) BUN 16 (6-20) mg/dL Creatinine 1.4 H (0.6-1.2) mg/dL Estimated GFR (MDRD) 52 L (>89) Glucose 234 H (70-100) mg/dL POC Whole Bld Glucose 177 H (70 - 100) mg/dL Calcium 9.4 (8.5-10.3) mg/dL 03/27/17 03/26/17 03/26/17 Range/Units 07:45 20:36 16:45 WBC (4.8-10.8) x10^3/uL RBC (4.70-6.10) 10^6/uL Hgb (14.0-18.0) g/dL Hct (42.0-52.0) % MCV (80.0-94.0) fL MCH (27.0-31.0) pg MCHC (32.0-36.0) g/dL RDW (12.0-15.0) % Plt Count (130-450) 10^3/uL MPV (7.4-11.4) fL Neut # (1.5-6.6) 10^3/uL Lymph # (1.5-3.5) 10^3/uL [place] # (0.0-1.0) 10^3/uL Eos # (0.0-0.7) 10^3/uL Baso # (0.0-0.1) 10^3/uL Absolute Nucleated RBC x10^3/uL Nucleated RBCs /100WBC Sodium (135-145) mmol/L Potassium (3.5-5.0) mmol/L Chloride (101-111) mmol/L Carbon Dioxide (21-32) mmol/L Anion Gap (6-13) BUN (6-20) mg/dL Creatinine (0.6-1.2) mg/dL Estimated GFR (MDRD) (>89) Glucose (70-100) mg/dL POC Whole Bld Glucose 157 H 137 H 111 H (70 - 100) mg/dL Calcium (8.5-10.3) mg/dL Assessment/Plan - Problem List (1) Pneumonia Impression: HCAP (associated with trach, in and out of hospital) s/p 10 days of zosyn and levaquin blood C&S neg. (2) LORENA (acute kidney injury) Impression: present on admisison. resolved. BUN 16 and creat 1.4 today. (3) Hypercapnia Impression: carbon dioxide peaked at 40. now at 35 today. obesity hypoventilation or PAUL stable (4) Atrial fibrillation with RVR Impression: was his problem with February admission. then sinus. with this admit aflutter no anticoagulation bc of prev brain hemorrhage rate is controlled. is on tapered amiodarone right now. I hear reg rate now but could be in aflutter. check EKG. (5) HTN (hypertension), benign Impression: he was on lisinopril and diltiazem (the latter for afib). but the BP too low so switched to amiodarone for rate control and BP bounced up to normal off the dilt. continue lisinopril (6) Diabetes type 2, uncontrolled Impression: uncontrolled on admission. 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 on admit 219.3 kg. find out if can be done. on diabetci diet (8) Fracture of distal end of tibia Impression: fell 03/11 followup film 03/17 is nonweightbearing no cast or splint bc of heel ulcer and teania that developed Qualifiers: Encounter type: subsequent encounter (9) Athlete's foot Impression: on nystatin cream and powder since 03/19. Would stop at 14 days. Qualifiers: Laterality: bilateral Qualified Code(s): B35.3 - Tinea pedis
[2017-03-27] MEDS: INSULIN GLARGINE 300 UNIT/3 ML PEN SUBQ SCH (22:35)
[2017-03-27] MEDS: SERTRALINE 50 MG TABLET PO SCH (22:35)
[2017-03-27] MEDS: ATORVASTATIN 10 MG TABLET PO SCH (22:36)
[2017-03-27] MEDS: GABAPENTIN 100 MG CAPSULE PO SCH (22:36)
[2017-03-28] MEDS: SODIUM CHLORIDE FLUSH 0.9% 10 ML SYRINGE IVP SCH ×3 (06:34→20:47)
[2017-03-28] MEDS: HYDROcod/ACETAM 10 MG/325 MG TABLET PO PRN ×4 (06:45→20:42)
[2017-03-28] MEDS: SENNA 8.6 MG TABLET PO SCH (08:10)
[2017-03-28] MEDS: DOCUSATE SODIUM 250 MG CAPSULE PO SCH (08:10)
[2017-03-28] MEDS: OMEGA-3 ACID ETHYL ESTERS 1 GM CAPSULE PO SCH ×2 (08:10→20:39)
[2017-03-28] MEDS: ASPIRIN EC 81 MG TABLET PO SCH (08:10)
[2017-03-28] MEDS: FUROSEMIDE 40 MG TABLET PO SCH ×3 (08:10→16:59)
[2017-03-28] MEDS: ENOXAPARIN 40 MG/0.4 ML SYRINGE SUBQ SCH (08:10)
[2017-03-28] MEDS: SACCHAROMYCES BOULARDII 250 MG CAPSULE PO SCH ×2 (08:10→16:59)
[2017-03-28] MEDS: LISINOPRIL 5 MG TABLET PO SCH ×2 (08:11→20:39)
[2017-03-28] MEDS: POLYETHYLENE GLYCOL 3350 17 GM PACKET PO SCH (08:11)
[2017-03-28] MEDS: FENOFIBRATE 48 MG TABLET PO SCH (08:11)
[2017-03-28] MEDS: MULTIVITAMIN TABLET PO SCH (08:11)
[2017-03-28] MEDS: AMIODARONE 200 MG TABLET PO SCH ×2 (08:11→20:40)
[2017-03-28] MEDS: NYSTATIN CREAM 15 GM TUBE TOP SCH ×2 (08:16→20:53)
[2017-03-28] MEDS: NYSTATIN POWDER 15 GM TOP SCH ×2 (08:16→20:53)
[2017-03-28] MEDS: MUPIROCIN 2% OINT 22 GM TUBE TOP SCH ×2 (08:16→20:52)
[2017-03-28] MEDS: INSULIN ASPART 300 UNIT/3 ML PEN SUBQ SCH ×7 (08:20→20:47)
--- NOTE | 2017-03-28 18:50 | PROVIDER PROGRESS NOTE ---
Assessment/Plan - Problem List (1) Pneumonia Assessment/Plan: HCAP (associated with trach, in and out of hospital) s/p 10 days of zosyn and levaquin blood C&S neg. (2) LORENA (acute kidney injury) Impression: present on admisison. resolved. BUN 16 and creat 1.4 yesterday No labs today (3) Hypercapnia Impression: carbon dioxide peaked at 40. At 35 yesterday obesity hypoventilation or PAUL stable (4) Atrial fibrillation with RVR Impression: was his problem with February admission. then sinus. with this admit aflutter no anticoagulation bc of prev brain hemorrhage rate is controlled. is on tapered amiodarone right now. (5) HTN (hypertension), benign Impression: he was on lisinopril and diltiazem (the latter for afib). but the BP too low so switched to amiodarone for rate control and BP bounced up to normal off the dilt. continue lisinopril (6) Diabetes type 2, uncontrolled Impression: uncontrolled on admission. since here is better Awaiting placement - Current Meds Current Meds: Current Medications Generic Name Dose Route Start Last Admin Trade Name Freq PRN Reason Stop Dose Admin Acetaminophen/Hydrocodone Bitart 1 tab 03/18/17 15:46 03/21/17 00:43 [place] 10 Mg/325 Mg PO 1 tab Q4HR PRN Administration PAIN Acetaminophen/Hydrocodone Bitart 2 tab 03/18/17 15:46 03/28/17 16:02 [place] 10 Mg/325 Mg PO 2 tab Q4HR PRN Administration PAIN Amiodarone HCl 200 mg 03/25/17 21:00 03/28/17 08:11 Pacerone PO 03/30/17 09:01 200 mg BID [facility] Administration Aspirin 81 mg 03/21/17 09:00 03/28/17 08:10 Ecotrin PO 81 mg DAILY [facility] Administration Atorvastatin Calcium 10 mg 03/15/17 21:00 03/27/17 22:36 Lipitor PO 10 mg QPM [facility] Administration Baclofen 10 mg 03/15/17 16:40 03/20/17 09:25 Lioresal PO 10 mg TID PRN Administration Cramp Docusate Sodium 250 - 500 mg 03/17/17 09:00 03/28/17 08:10 Colace 250mg Capsule PO 250 mg DAILY [facility] Administration Enoxaparin Sodium 40 mg 03/17/17 09:00 03/28/17 08:10 Lovenox SUBQ 40 mg DAILY [facility] Administration Fenofibrate 144 mg 03/16/17 09:00 03/28/17 08:11 Tricor PO 144 mg DAILY [facility] Administration Furosemide 80 mg 03/16/17 09:00 03/28/17 08:10 Lasix PO 80 mg DAILY [facility] Administration Furosemide 40 mg 03/28/17 16:00 03/28/17 16:59 Lasix PO 40 mg DAILY@1400 [facility] Administration Gabapentin 200 mg 03/15/17 21:00 03/27/17 22:36 Neurontin PO 200 mg QPM [facility] Administration Insulin Aspart 40 unit 03/15/17 17:00 03/28/17 16:59 Novolog SUBQ 40 unit TIDWM [facility] Administration Insulin Aspart 2 - 10 unit 03/19/17 17:00 03/28/17 17:00 Novolog SUBQ 2 unit 0800,1200,1700,2100 [facility] Administration Protocol Insulin Glargine 76 unit 03/15/17 21:00 03/27/17 22:35 Lantus Solostar SUBQ 76 unit QPM [facility] Administration Lisinopril 10 mg 03/15/17 21:00 03/28/17 08:11 Zestril PO 10 mg BID [facility] Administration Multivitamins 1 tab 03/16/17 08:00 03/28/17 08:11 Theragran PO 1 tab DAILYWM [facility] Administration Mupirocin 1 applic 03/21/17 21:00 03/28/17 08:16 Bactroban 2% Oint TOP 1 applic BID [facility] Administration Nystatin 1 applic 03/19/17 14:00 03/28/17 08:16 Mycostatin Cream TOP 1 applic BID [facility] Administration Nystatin 1 applic 03/19/17 14:00 03/28/17 08:16 Nystop TOP 1 applic BID [facility] Administration [id number] Ethyl Esters 2 gm 03/15/17 21:00 03/28/17 08:10 Lovaza PO 2 gm BID [facility] Administration Polyethylene Glycol 17 gm 03/17/17 09:00 03/28/17 08:11 Miralax PO 17 gm DAILY [facility] Administration Saccharomyces Boulardii 250 mg 03/16/17 17:00 03/28/17 16:59 Florastor PO 250 mg BIDWM [facility] Administration Senna 8.6 - 17.2 mg 03/17/17 09:00 03/28/17 08:10 Senokot PO 8.6 mg DAILY [facility] Administration Sertraline HCl 300 mg 03/15/17 21:00 03/27/17 22:35 Zoloft PO 300 mg QPM [facility] Administration Sodium Chloride 10 ml 03/16/17 13:55 03/26/17 00:04 Normal Saline Flush 0.9% IVP 10 ml PRN PRN Administration NEEDED PER PROVIDER ORDERS Sodium Chloride 10 ml 03/16/17 14:00 03/28/17 13:28 Normal Saline Flush 0.9% IVP 10 ml Q8HR [facility] Administration - Lab Result Lab results reviewed: Yes Fish Bone Diagrams: 03/27/17 09:59 03/27/17 09:59 - EKG Results EKG Interpreted Independently: Yes - Diagnostic Imaging Results Diagnostic Imaging Results: positive: Final report reviewed - Additional Planning Condition/Complexity: Stable Consult/Specialty: PT Plan Discussed with:: Patient Time Spent: 31-60 minutes Subjective - Subjective Patient Reports: Other (Feels well. No new complaints. Denies fevers, chills, chest pain. Shortness of breath is at baseline. Wants to get a brace for his knee and would like to sit in chair.) Nursing Reports: No Complaints Objective Vital Signs: Vital Signs - 24 hr 03/28/17 03/28/17 03/28/17 01:33 09:00 16:15 Temperature 37.0 C 36.4 C L 36.5 C Heart Rate [ 84 77 82 Brachial] Respiratory 20 18 16 Rate Blood Pressure 108/68 94/60 [Left Brachial artery] Blood Pressure 105/68 [Right brachial ] O2 Saturation 98 97 97 Oxygen O2 Source [Without Activity] trach blow by O2 Source Nasal cannula I&O (Last 24 Hrs): Intake and Output Totals x24h 03/26/17 03/27/17 03/28/17 23:59 23:59 23:59 Intake Total 2060 2890 1886 Output Total 4900 3500 3550 Balance -4798 -444 -9862 General: Alert, Oriented x3, Cooperative, Other (Tracheostomy) HEENT: Atraumatic, PERRLA, EOMI, Mucous membr. moist/pink Neck: Supple, No JVD, No thyromegaly, +2 carotid pulse wo bruit, No LAD Lymphatic: no adenopathy Neuro: Alert, Non Focal, CN 2-12 Grossly Intact, Oriented Times 3 Cardiovascular: Other (Irregular) Respiratory: Chest non-tender, No respiratory distress, Rhonchi (bilateral) Abdomen: Normal bowel sounds, Soft, No tenderness, No hepatospenomegaly Extremities: No clubbing, No cyanosis, No edema, Normal pulses Skin: No rashes, No breakdown, No significant lesion - Results Results: Laboratory Results WBC 8.2 x10^3/uL (4.8-10.8) 03/27/17 09:59 RBC 4.49 10^6/uL (4.70-6.10) L 03/27/17 09:59 Hgb 13.2 g/dL (14.0-18.0) L 03/27/17 09:59 Hct 38.7 % (42.0-52.0) L 03/27/17 09:59 MCV 86.2 fL (80.0-94.0) 03/27/17 09:59 MCH 29.3 pg (27.0-31.0) 03/27/17 09:59 MCHC 34.0 g/dL (32.0-36.0) 03/27/17 09:59 RDW 13.6 % (12.0-15.0) 03/27/17 09:59 Plt Count 397 10^3/uL (130-450) 03/27/17 09:59 MPV 7.2 fL (7.4-11.4) L 03/27/17 09:59 Neut # 5.6 10^3/uL (1.5-6.6) 03/27/17 09:59 Lymph # 1.7 10^3/uL (1.5-3.5) 03/27/17 09:59 [place] # 0.6 10^3/uL (0.0-1.0) 03/27/17 09:59 Eos # 0.3 10^3/uL (0.0-0.7) 03/27/17 09:59 Baso # 0.1 10^3/uL (0.0-0.1) 03/27/17 09:59 Absolute Nucleated RBC 0.00 x10^3/uL 03/27/17 09:59 Nucleated RBCs 0.0 /100WBC 03/27/17 09:59 Bld Gas Analysis Time 82203/18/17 08:23 Sample Site RIGHT RADIAL 03/18/17 08:23 ABG pH 7.43 (7.35-7.45) 03/18/17 08:23 ABG pCO2 60 mmHg (34-45) H* 03/18/17 08:23 ABG pO2 84 mmHg (80-100) 03/18/17 08:23 ABG HCO3 39.1 mmol/L (22.0-26.0) H 03/18/17 08:23 ABG Total CO2 40.9 MMOL/L (21.0-29.0) H* 03/18/17 08:23 ABG O2 Saturation 96 % (94-98) 03/18/17 08:23 ABG Base Excess 12.4 mmol/L (-2.0-3.0) H 03/18/17 08:23 Avinash Test POSITIVE 03/18/17 08:23 O2 Delivery Device VENTILATOR 03/18/17 08:23 O2 Liters/Min 4.00 LPM 03/18/17 08:23 Sodium 137 mmol/L (135-145) 03/27/17 09:59 Potassium 4.2 mmol/L (3.5-5.0) 03/27/17 09:59 Chloride 93 mmol/L (101-111) L 03/27/17 09:59 Carbon Dioxide 35 mmol/L (21-32) H 03/27/17 09:59 Anion Gap 9.0 (6-13) 03/27/17 09:59 BUN 16 mg/dL (6-20) 03/27/17 09:59 Creatinine 1.4 mg/dL (0.6-1.2) H 03/27/17 09:59 Estimated GFR (MDRD) 52 (>89) L 03/27/17 09:59 Glucose 234 mg/dL (70-100) H 03/27/17 09:59 POC Whole Bld Glucose 199 mg/dL (70 - 100) H 03/28/17 11:51 Calcium 9.4 mg/dL (8.5-10.3) 03/27/17 09:59 Total Bilirubin 0.6 mg/dL (0.2-1.0) 03/25/17 05:45 Direct Bilirubin 0.1 mg/dL (0.1-0.5) 03/21/17 06:00 AST 22 IU/L (10-42) 03/25/17 05:45 ALT 22 IU/L (10-60) 03/25/17 05:45 Alkaline Phosphatase 47 IU/L (42-121) 03/25/17 05:45 Troponin I < 0.04 ng/mL (<0.49) 03/16/17 11:57 B-Natriuretic Peptide 51 pg/mL (5-100) 03/16/17 11:57 Total Protein 6.1 g/dL (6.7-8.2) L 03/25/17 05:45 Albumin 3.1 g/dL (3.2-5.5) L 03/25/17 05:45 Globulin 3.0 g/dL (2.1-4.2) 03/25/17 05:45 Albumin/Globulin Ratio 1.0 (1.0-2.2) 03/25/17 05:45 - Procedures Procedures: Procedures VENOUS CATHETERIZATION NEC (05/21/14)
[2017-03-28] MEDS: SERTRALINE 50 MG TABLET PO SCH (20:39)
[2017-03-28] MEDS: BACLOFEN 10 MG TABLET PO PRN (20:42)
[2017-03-28] MEDS: GABAPENTIN 100 MG CAPSULE PO SCH (20:42)
[2017-03-28] MEDS: ATORVASTATIN 10 MG TABLET PO SCH (20:42)
[2017-03-28] MEDS: INSULIN GLARGINE 300 UNIT/3 ML PEN SUBQ SCH (20:48)
[2017-03-29] MEDS: SODIUM CHLORIDE FLUSH 0.9% 10 ML SYRINGE IVP SCH ×2 (05:10→14:00)
[2017-03-29] MEDS: HYDROcod/ACETAM 10 MG/325 MG TABLET PO PRN ×3 (05:10→18:21)
[2017-03-29] MEDS: INSULIN ASPART 300 UNIT/3 ML PEN SUBQ SCH ×7 (08:18→21:34)
[2017-03-29] MEDS: POLYETHYLENE GLYCOL 3350 17 GM PACKET PO SCH (09:22)
[2017-03-29] MEDS: FUROSEMIDE 40 MG TABLET PO SCH ×2 (09:22→13:59)
[2017-03-29] MEDS: ENOXAPARIN 40 MG/0.4 ML SYRINGE SUBQ SCH (09:22)
[2017-03-29] MEDS: FENOFIBRATE 48 MG TABLET PO SCH (09:23)
[2017-03-29] MEDS: DOCUSATE SODIUM 250 MG CAPSULE PO SCH (09:23)
[2017-03-29] MEDS: LISINOPRIL 5 MG TABLET PO SCH ×2 (09:23→21:33)
[2017-03-29] MEDS: ASPIRIN EC 81 MG TABLET PO SCH (09:23)
[2017-03-29] MEDS: OMEGA-3 ACID ETHYL ESTERS 1 GM CAPSULE PO SCH ×2 (09:24→21:33)
[2017-03-29] MEDS: MULTIVITAMIN TABLET PO SCH (09:24)
[2017-03-29] MEDS: SACCHAROMYCES BOULARDII 250 MG CAPSULE PO SCH ×2 (09:26→17:00)
[2017-03-29] MEDS: AMIODARONE 200 MG TABLET PO SCH ×2 (09:26→21:33)
[2017-03-29] MEDS: NYSTATIN POWDER 15 GM TOP SCH ×2 (13:56→21:42)
[2017-03-29] MEDS: MUPIROCIN 2% OINT 22 GM TUBE TOP SCH ×2 (13:57→21:42)
[2017-03-29] MEDS: NYSTATIN CREAM 15 GM TUBE TOP SCH ×2 (13:57→21:42)
[2017-03-29] MEDS: SENNA 8.6 MG TABLET PO SCH (13:59)
--- NOTE | 2017-03-29 18:40 | PROVIDER PROGRESS NOTE ---
Hospitalist Cross-cover Note - Cross-Cover Note Cross-Cover Note: Pateint seen and examined. He continues to be stable and is awaiting placement. No changes made in his treatment plan. Patient is depressed about his situation but already on antidepressants.
[2017-03-29] MEDS: SERTRALINE 50 MG TABLET PO SCH (21:33)
[2017-03-29] MEDS: ATORVASTATIN 10 MG TABLET PO SCH (21:33)
[2017-03-29] MEDS: GABAPENTIN 100 MG CAPSULE PO SCH (21:34)
[2017-03-29] MEDS: INSULIN GLARGINE 300 UNIT/3 ML PEN SUBQ SCH (21:35)
[2017-03-30 06:19] LABS: BASOPHILS # (AUTO) 0.1 10^3/uL (0.0-0.1); EOSINOPHILS # (AUTO) 0.3 10^3/uL (0.0-0.7); EOSINOPHILS % (AUTO) 3.6 %; HCT - HEMATOCRIT 41.1 % (42.0-52.0); HGB - HEMOGLOBIN 13.6 g/dL (14.0-18.0); LYMPHOCYTES # (AUTO) 2.4 10^3/uL (1.5-3.5); LYMPHOCYTES % (AUTO) 27.5 %; MEAN CORPUSCULAR HEMOGLOBIN 28.9 pg (27.0-31.0); MEAN CORPUSCULAR HGB CONC 33.1 g/dL (32.0-36.0); MEAN CORPUSCULAR VOLUME 87.5 fL (80.0-94.0); MEAN PLATELET VOLUME 7.3 fL (7.4-11.4); MONOCYTES # (AUTO) 0.7 10^3/uL (0.0-1.0); MONOCYTES % (AUTO) 7.9 %; NEUTROPHILS # (AUTO) 5.4 10^3/uL (1.5-6.6); RED CELL DISTRIBUTION WIDTH 13.8 % (12.0-15.0); UNCORRECTED WHITE BLOOD COUNT 8.9 x10^3/uL; WHITE BLOOD COUNT 8.9 x10^3/uL (4.8-10.8)
[2017-03-30 06:31] LABS: ALBUMIN/GLOBULIN RATIO 1.1 (1.0-2.2); BILIRUBIN,TOTAL 0.5 mg/dL (0.2-1.0); BUN - BLOOD UREA NITROGEN 16 mg/dL (6-20); CALCIUM 9.6 mg/dL (8.5-10.3); CARBON DIOXIDE - CO2 36 mmol/L (21-32); CHLORIDE 94 mmol/L (101-111); CREATININE 1.2 mg/dL (0.6-1.2); GFR - MDRD 62 (>89); GLUCOSE 192 mg/dL (70-100); MAGNESIUM 1.9 mg/dL (1.7-2.8); PHOSPHORUS 3.7 mg/dL (2.5-4.6); POTASSIUM 4.2 mmol/L (3.5-5.0); SODIUM 139 mmol/L (135-145); TOTAL PROTEIN 6.8 g/dL (6.7-8.2)
[2017-03-30] MEDS: SODIUM CHLORIDE FLUSH 0.9% 10 ML SYRINGE IVP SCH ×4 (06:34→21:17)
[2017-03-30] MEDS: INSULIN ASPART 300 UNIT/3 ML PEN SUBQ SCH ×7 (07:59→21:19)
[2017-03-30] MEDS: MULTIVITAMIN TABLET PO SCH (08:05)
[2017-03-30] MEDS: AMIODARONE 200 MG TABLET PO SCH (08:06)
[2017-03-30] MEDS: SACCHAROMYCES BOULARDII 250 MG CAPSULE PO SCH ×2 (08:06→19:27)
[2017-03-30] MEDS: ASPIRIN EC 81 MG TABLET PO SCH (08:07)
[2017-03-30] MEDS: DOCUSATE SODIUM 250 MG CAPSULE PO SCH ×2 (08:07→08:19)
[2017-03-30] MEDS: FENOFIBRATE 48 MG TABLET PO SCH (08:08)
[2017-03-30] MEDS: LISINOPRIL 5 MG TABLET PO SCH (08:08)
[2017-03-30] MEDS: FUROSEMIDE 40 MG TABLET PO SCH ×2 (08:08→13:53)
[2017-03-30] MEDS: ENOXAPARIN 40 MG/0.4 ML SYRINGE SUBQ SCH (08:08)
[2017-03-30] MEDS: POLYETHYLENE GLYCOL 3350 17 GM PACKET PO SCH (08:09)
[2017-03-30] MEDS: SENNA 8.6 MG TABLET PO SCH ×2 (08:10→08:19)
[2017-03-30] MEDS: OMEGA-3 ACID ETHYL ESTERS 1 GM CAPSULE PO SCH ×2 (08:14→21:16)
--- NOTE | 2017-03-30 08:22 | PROVIDER PROGRESS NOTE ---
Subjective - Prog Note Date Prog Note Date: 03/30/17 Prog Note Time: 08:19 - Subjective Pt reports feeling: Improved, No change (but does feel better after having a BM / first time in 4 days) Subjective: had BM today finally for first time in 4 days. "they were going to give me a suppository") had large BM per nurse Patient with no other complaints, no pain, no palpitations, no chest pain or shortness of breath Per RN (Nicolasa), sacral decub is healed, duoderm removed Current Medications - Current Medications Current Medications: Active Medications Generic Name Dose Route Start Last Admin Trade Name Freq PRN Reason Stop Dose Admin Acetaminophen/Hydrocodone Bitart 1 tab 03/18/17 15:46 03/28/17 20:42 [place] 10 Mg/325 Mg PO 2 tab Q4HR PRN Administration PAIN Acetaminophen/Hydrocodone Bitart 2 tab 03/18/17 15:46 03/29/17 18:21 [place] 10 Mg/325 Mg PO 2 tab Q4HR PRN Administration PAIN Amiodarone HCl 200 mg 03/25/17 21:00 03/30/17 08:06 Pacerone PO 03/30/17 09:01 200 mg BID AR[place] Administration Amiodarone HCl 200 mg 03/31/17 09:00 Pacerone PO DAILY ARDEN Aspirin 81 mg 03/21/17 09:00 03/30/17 08:07 Ecotrin PO 81 mg DAILY [place] Administration Atorvastatin Calcium 10 mg 03/15/17 21:00 03/29/17 21:33 Lipitor PO 10 mg QPM [place] Administration Baclofen 10 mg 03/15/17 16:40 03/28/17 20:42 Lioresal PO 10 mg TID PRN Administration Cramp Docusate Sodium 250 - 500 mg 03/17/17 09:00 03/30/17 08:07 Colace 250mg Capsule PO 250 mg DAILY AR[place] Administration Enoxaparin Sodium 40 mg 03/17/17 09:00 03/30/17 08:08 Lovenox SUBQ 40 mg DAILY AR[place] Administration Fenofibrate 144 mg 03/16/17 09:00 03/30/17 08:08 Tricor PO 144 mg DAILY AR[place] Administration Furosemide 80 mg 03/16/17 09:00 03/30/17 08:08 Lasix PO 80 mg DAILY AR[place] Administration Furosemide 40 mg 03/28/17 16:00 03/29/17 13:59 Lasix PO 40 mg DAILY@1400 AR[place] Administration Gabapentin 200 mg 03/15/17 21:00 03/29/17 21:34 Neurontin PO 200 mg QPM AR[place] Administration Insulin Aspart 40 unit 03/15/17 17:00 03/30/17 07:59 Novolog SUBQ 40 unit TIDWM [place] Administration Insulin Aspart 2 - 10 unit 03/19/17 17:00 03/30/17 08:00 Novolog SUBQ 4 unit 0800,1200,1700,2100 ARDEN Administration Protocol Insulin Glargine 76 unit 03/15/17 21:00 03/29/17 21:35 Lantus Solostar SUBQ 76 unit QPM AR[place] Administration Lisinopril 10 mg 03/15/17 21:00 03/30/17 08:08 Zestril PO 10 mg BID [place] Administration Multivitamins 1 tab 03/16/17 08:00 03/30/17 08:05 Theragran PO 1 tab DAILYWM [place] Administration Mupirocin 1 applic 03/21/17 21:00 03/29/17 21:42 Bactroban 2% Oint TOP 1 applic BID AR[place] Administration Nystatin 1 applic 03/19/17 14:00 03/29/17 21:42 Mycostatin Cream TOP 1 applic BID AR[place] Administration Nystatin 1 applic 03/19/17 14:00 03/29/17 21:42 Nystop TOP 1 applic BID AR[place] Administration [id number] Ethyl Esters 2 gm 03/15/17 21:00 03/29/17 21:33 Lovaza PO 2 gm BID AR[place] Administration Polyethylene Glycol 17 gm 03/17/17 09:00 03/30/17 08:09 Miralax PO 17 gm DAILY [place] Administration Saccharomyces Boulardii 250 mg 03/16/17 17:00 03/30/17 08:06 Florastor PO 250 mg BIDWM [place] Administration Senna 8.6 - 17.2 mg 03/17/17 09:00 03/30/17 08:10 Senokot PO 8.6 mg DAILY [place] Administration Sertraline HCl 300 mg 03/15/17 21:00 03/29/17 21:33 Zoloft PO 300 mg QPM [place] Administration Sodium Chloride 10 ml 03/16/17 13:55 03/26/17 00:04 Normal Saline Flush 0.9% IVP 10 ml PRN PRN Administration NEEDED PER PROVIDER ORDERS Sodium Chloride 10 ml 03/16/17 14:00 03/30/17 06:34 Normal Saline Flush 0.9% IVP 10 ml Q8HR [place] Administration Insulin Glargine,Hum.rec.anlog [Lantus Solostar] 76 unit SQ QPM 03/20/13 Lisinopril 10 mg PO BID 03/20/13 Lovastatin 40 mg PO QPM 03/20/13 Multivitamin [Multivitamins] 1 each PO DAILY 03/20/13 metFORMIN [Glucophage] 1,000 mg PO BIDWM 03/20/13 Fenofibrate 160 mg PO DAILY 06/10/14 Aspirin 81 mg PO DAILY 10/04/16 HYDROcodone/ACET 10/325 [[place] 10 mg/325 mg] 1 tab PO QID 10/04/16 Insulin Aspart [Novolog Flexpen] 40 unit SUBQ TIDWM 10/04/16 Furosemide [Lasix] 80 mg PO DAILY 03/11/17 Gabapentin 100 - 200 mg PO QPM 03/11/17 Icosapent Ethyl [Vascepa] 2 gm PO BID 03/12/17 Sertraline HCl [Zoloft] 300 mg PO QPM 03/12/17 Objective - Vital Signs/Intake & Output Reviewed Vital Signs: Yes Intake & Output: Intake & Output 03/27/17 03/28/17 03/29/17 03/30/17 23:59 23:59 23:59 23:59 Intake Total 2890 2986 1440 300 Output Total 3500 6550 5150 550 Balance -610 -3564 -3710 -250 - Objective General Appearance: positive: No acute distress, Other (sitting in bed reading book) Respiratory: positive: No respiratory distress, Breath sounds nml, Other (trach collar on, no rhonchi currently) Cardiovascular: positive: Regular rate & rhythm (does not sound irregular at this time (not on tele)). negative: No murmur Abdomen: positive: Other (obese , soft Nontender, + bowel sounds) Skin: positive: Warm, Dry Extremities: positive: Other (trace pretibial edema, powder on toes, R heel w/ ~ 1 ' black eschar (but soft)) Neurologic/Psychiatric: positive: Mood/affect nml (somewhat flat but pleasant) - Lab Results Fish Bones: 03/30/17 05:49 03/30/17 05:49 Other Labs: Lab Results x24hrs 03/30/17 03/30/17 03/30/17 Range/Units 07:36 05:49 05:49 WBC 8.9 (4.8-10.8) x10^3/uL RBC 4.70 (4.70-6.10) 10^6/uL Hgb 13.6 L (14.0-18.0) g/dL Hct 41.1 L (42.0-52.0) % MCV 87.5 (80.0-94.0) fL MCH 28.9 (27.0-31.0) pg MCHC 33.1 (32.0-36.0) g/dL RDW 13.8 (12.0-15.0) % Plt Count 403 (130-450) 10^3/uL MPV 7.3 L (7.4-11.4) fL Neut # 5.4 (1.5-6.6) 10^3/uL Lymph # 2.4 (1.5-3.5) 10^3/uL [place] # 0.7 (0.0-1.0) 10^3/uL Eos # 0.3 (0.0-0.7) 10^3/uL Baso # 0.1 (0.0-0.1) 10^3/uL Absolute Nucleated RBC 0.00 x10^3/uL Nucleated RBCs 0.0 /100WBC Sodium 139 (135-145) mmol/L Potassium 4.2 (3.5-5.0) mmol/L Chloride 94 L (101-111) mmol/L Carbon Dioxide 36 H (21-32) mmol/L Anion Gap 9.0 (6-13) BUN 16 (6-20) mg/dL Creatinine 1.2 (0.6-1.2) mg/dL Estimated GFR (MDRD) 62 L (>89) Glucose 192 H (70-100) mg/dL POC Whole Bld Glucose 216 H (70 - 100) mg/dL Calcium 9.6 (8.5-10.3) mg/dL Ionized Calcium NO Phosphorus 3.7 (2.5-4.6) mg/dL Magnesium 1.9 (1.7-2.8) mg/dL Total Bilirubin 0.5 (0.2-1.0) mg/dL AST 22 (10-42) IU/L ALT 19 (10-60) IU/L Alkaline Phosphatase 63 (42-121) IU/L Total Protein 6.8 (6.7-8.2) g/dL Albumin 3.5 (3.2-5.5) g/dL Globulin 3.3 (2.1-4.2) g/dL Albumin/Globulin Ratio 1.1 (1.0-2.2) 03/29/17 03/29/17 03/29/17 Range/Units 20:56 16:37 11:14 WBC (4.8-10.8) x10^3/uL RBC (4.70-6.10) 10^6/uL Hgb (14.0-18.0) g/dL Hct (42.0-52.0) % MCV (80.0-94.0) fL MCH (27.0-31.0) pg MCHC (32.0-36.0) g/dL RDW (12.0-15.0) % Plt Count (130-450) 10^3/uL MPV (7.4-11.4) fL Neut # (1.5-6.6) 10^3/uL Lymph # (1.5-3.5) 10^3/uL [place] # (0.0-1.0) 10^3/uL Eos # (0.0-0.7) 10^3/uL Baso # (0.0-0.1) 10^3/uL Absolute Nucleated RBC x10^3/uL Nucleated RBCs /100WBC Sodium (135-145) mmol/L Potassium (3.5-5.0) mmol/L Chloride (101-111) mmol/L Carbon Dioxide (21-32) mmol/L Anion Gap (6-13) BUN (6-20) mg/dL Creatinine (0.6-1.2) mg/dL Estimated GFR (MDRD) (>89) Glucose (70-100) mg/dL POC Whole Bld Glucose 162 H 163 H 192 H (70 - 100) mg/dL Calcium (8.5-10.3) mg/dL Ionized Calcium Phosphorus (2.5-4.6) mg/dL Magnesium (1.7-2.8) mg/dL Total Bilirubin (0.2-1.0) mg/dL AST (10-42) IU/L ALT (10-60) IU/L Alkaline Phosphatase (42-121) IU/L Total Protein (6.7-8.2) g/dL Albumin (3.2-5.5) g/dL Globulin (2.1-4.2) g/dL Albumin/Globulin Ratio (1.0-2.2) 03/28/17 03/27/17 Range/Units 16:31 20:43 WBC (4.8-10.8) x10^3/uL RBC (4.70-6.10) 10^6/uL Hgb (14.0-18.0) g/dL Hct (42.0-52.0) % MCV (80.0-94.0) fL MCH (27.0-31.0) pg MCHC (32.0-36.0) g/dL RDW (12.0-15.0) % Plt Count (130-450) 10^3/uL MPV (7.4-11.4) fL Neut # (1.5-6.6) 10^3/uL Lymph # (1.5-3.5) 10^3/uL [place] # (0.0-1.0) 10^3/uL Eos # (0.0-0.7) 10^3/uL Baso # (0.0-0.1) 10^3/uL Absolute Nucleated RBC x10^3/uL Nucleated RBCs /100WBC Sodium (135-145) mmol/L Potassium (3.5-5.0) mmol/L Chloride (101-111) mmol/L Carbon Dioxide (21-32) mmol/L Anion Gap (6-13) BUN (6-20) mg/dL Creatinine (0.6-1.2) mg/dL Estimated GFR (MDRD) (>89) Glucose (70-100) mg/dL POC Whole Bld Glucose 158 H 188 H (70 - 100) mg/dL Calcium (8.5-10.3) mg/dL Ionized Calcium Phosphorus (2.5-4.6) mg/dL Magnesium (1.7-2.8) mg/dL Total Bilirubin (0.2-1.0) mg/dL AST (10-42) IU/L ALT (10-60) IU/L Alkaline Phosphatase (42-121) IU/L Total Protein (6.7-8.2) g/dL Albumin (3.2-5.5) g/dL Globulin (2.1-4.2) g/dL Albumin/Globulin Ratio (1.0-2.2) FSBG 195 03/29 7:44am, 192 03/29 11:14 03/29 4:37p 163 03/29 9p 162 7:30 a 216 Assessment/Plan - Problem List (1) Atrial fibrillation with RVR Impression: Assessment/Plan: 1)Atrial fibrillation/flutter with history of afib/RVR Impression: February [facility] admit afib RVR/ >>> reverted to NSR, this admit : atrial flutter rate controlled on 200 mg daily 70's, 80's Amiodarone currently being tapered RE: stroke prevention; no anticoagulation bc of prev brain hemorrhage 2) Fracture of distal end of tibia Assessment/Plan: 03/30 PT inquired re: when might be wt bearing per ortho. I discussed w/ Dr. Garcia. He indicated -recheck tib Xray 4 wks from time of fx - he does not intend to recommend casting or CAM walker due to the hemiplegia and fact that he had a soft tissue ulcer 03/25: noteRai is hanging out marking time while his fracture heals. He is none weight bearing,and he has a blister of L heel that isw looking stationary but has not worsened (3) Hypercapnia/ metabolic alkalosis Impression: no change 03/30 compensation for resp acidosis carbon dioxide peaked at 40. At 35 yesterday obesity hypoventilation or PAUL stable (4) LORENA (acute kidney injury) Impression: present on admission resolved BUN / Cr 16/1.2 today (1.4 last check 03/27) (5) HTN (hypertension), benign Impression: 03/30 BP low 100's on bid lisionpril : will stop pm dose 03/29he was on lisinopril and diltiazem (the latter for afib). but the BP too low so switched to amiodarone for rate control and BP bounced up to normal off the dilt. continue lisinopril (6) Health Care acquired pneumonia HCAP (associated with trach, in and out of hospital) s/p 10 days of zosyn and levaquin blood C&S neg. (6) Diabetes type 2, uncontrolled Impression: FSBG last 24 hrs a above; will follow how much (correction) he gets and possibly modify dose as last few over glucoses 200 but was uncontrolled on admission and much better now. Constipation: resolved, continue daily miralax Awaiting placement
[2017-03-30] MEDS: NYSTATIN POWDER 15 GM TOP SCH ×2 (10:20→21:30)
[2017-03-30] MEDS: NYSTATIN CREAM 15 GM TUBE TOP SCH ×2 (10:20→21:30)
[2017-03-30] MEDS: MUPIROCIN 2% OINT 22 GM TUBE TOP SCH ×2 (10:20→21:30)
[2017-03-30] MEDS: HYDROcod/ACETAM 10 MG/325 MG TABLET PO PRN (14:55)
[2017-03-30] MEDS: SERTRALINE 50 MG TABLET PO SCH (21:16)
[2017-03-30] MEDS: BACLOFEN 10 MG TABLET PO PRN (21:16)
[2017-03-30] MEDS: GABAPENTIN 100 MG CAPSULE PO SCH (21:16)
[2017-03-30] MEDS: ATORVASTATIN 10 MG TABLET PO SCH (21:17)
[2017-03-30] MEDS: INSULIN GLARGINE 300 UNIT/3 ML PEN SUBQ SCH (21:18)
[2017-03-31 05:48] LABS: BASOPHILS # (AUTO) 0.1 10^3/uL (0.0-0.1); BASOPHILS % (AUTO) 1.5 %; EOSINOPHILS # (AUTO) 0.2 10^3/uL (0.0-0.7); EOSINOPHILS % (AUTO) 2.1 %; HCT - HEMATOCRIT 39.2 % (42.0-52.0); HGB - HEMOGLOBIN 13.2 g/dL (14.0-18.0); LYMPHOCYTES # (AUTO) 2.6 10^3/uL (1.5-3.5); LYMPHOCYTES % (AUTO) 29.7 %; MEAN CORPUSCULAR HEMOGLOBIN 29.1 pg (27.0-31.0); MEAN CORPUSCULAR HGB CONC 33.6 g/dL (32.0-36.0); MEAN CORPUSCULAR VOLUME 86.5 fL (80.0-94.0); MEAN PLATELET VOLUME 7.3 fL (7.4-11.4); MONOCYTES # (AUTO) 0.7 10^3/uL (0.0-1.0); MONOCYTES % (AUTO) 8.4 %; NEUTROPHILS # (AUTO) 5.1 10^3/uL (1.5-6.6); NEUTROPHILS % (AUTO) 58.3 %; RED BLOOD COUNT 4.53 10^6/uL (4.70-6.10); RED CELL DISTRIBUTION WIDTH 13.7 % (12.0-15.0); UNCORRECTED WHITE BLOOD COUNT 8.8 x10^3/uL; WHITE BLOOD COUNT 8.8 x10^3/uL (4.8-10.8)
[2017-03-31 05:55] LABS: ALBUMIN/GLOBULIN RATIO 1.1 (1.0-2.2); BILIRUBIN,TOTAL 0.6 mg/dL (0.2-1.0); BUN - BLOOD UREA NITROGEN 17 mg/dL (6-20); CALCIUM 9.2 mg/dL (8.5-10.3); CARBON DIOXIDE - CO2 33 mmol/L (21-32); CHLORIDE 94 mmol/L (101-111); CREATININE 1.1 mg/dL (0.6-1.2); GFR - MDRD 69 (>89); GLUCOSE 210 mg/dL (70-100); MAGNESIUM 1.9 mg/dL (1.7-2.8); PHOSPHORUS 3.5 mg/dL (2.5-4.6); POTASSIUM 3.5 mmol/L (3.5-5.0); SODIUM 137 mmol/L (135-145); TOTAL PROTEIN 6.6 g/dL (6.7-8.2)
[2017-03-31] MEDS: INSULIN ASPART 300 UNIT/3 ML PEN SUBQ SCH ×7 (08:17→23:19)
[2017-03-31] MEDS: SACCHAROMYCES BOULARDII 250 MG CAPSULE PO SCH ×2 (08:21→17:14)
[2017-03-31] MEDS: MULTIVITAMIN TABLET PO SCH (08:21)
[2017-03-31] MEDS: FENOFIBRATE 48 MG TABLET PO SCH (08:22)
[2017-03-31] MEDS: ASPIRIN EC 81 MG TABLET PO SCH (08:22)
[2017-03-31] MEDS: DOCUSATE SODIUM 250 MG CAPSULE PO SCH (08:22)
[2017-03-31] MEDS: ENOXAPARIN 40 MG/0.4 ML SYRINGE SUBQ SCH (08:22)
[2017-03-31] MEDS: OMEGA-3 ACID ETHYL ESTERS 1 GM CAPSULE PO SCH ×2 (08:23→23:20)
[2017-03-31] MEDS: FUROSEMIDE 40 MG TABLET PO SCH ×2 (08:23→13:01)
[2017-03-31] MEDS: SENNA 8.6 MG TABLET PO SCH (08:24)
[2017-03-31] MEDS: POLYETHYLENE GLYCOL 3350 17 GM PACKET PO SCH (08:24)
[2017-03-31] MEDS: LISINOPRIL 5 MG TABLET PO SCH (08:33)
[2017-03-31] MEDS: AMIODARONE 200 MG TABLET PO SCH (08:33)
[2017-03-31] MEDS: HYDROcod/ACETAM 10 MG/325 MG TABLET PO PRN ×2 (08:33→23:20)
[2017-03-31] MEDS: MUPIROCIN 2% OINT 22 GM TUBE TOP SCH ×2 (11:39→23:21)
[2017-03-31] MEDS: NYSTATIN CREAM 15 GM TUBE TOP SCH ×2 (11:40→23:21)
[2017-03-31] MEDS: NYSTATIN POWDER 15 GM TOP SCH ×2 (11:40→23:22)
[2017-03-31] MEDS: INSULIN GLARGINE 300 UNIT/3 ML PEN SUBQ SCH (23:17)
[2017-03-31] MEDS: ATORVASTATIN 10 MG TABLET PO SCH (23:20)
[2017-03-31] MEDS: SERTRALINE 50 MG TABLET PO SCH (23:20)
[2017-03-31] MEDS: GABAPENTIN 100 MG CAPSULE PO SCH (23:21)
[2017-04-01] MEDS: HYDROcod/ACETAM 10 MG/325 MG TABLET PO PRN ×3 (07:42→21:58)
[2017-04-01] MEDS: SACCHAROMYCES BOULARDII 250 MG CAPSULE PO SCH ×2 (07:42→17:44)
[2017-04-01] MEDS: INSULIN ASPART 300 UNIT/3 ML PEN SUBQ SCH ×7 (07:43→21:42)
[2017-04-01] MEDS: POLYETHYLENE GLYCOL 3350 17 GM PACKET PO SCH (08:52)
[2017-04-01] MEDS: LISINOPRIL 5 MG TABLET PO SCH (08:54)
[2017-04-01] MEDS: SENNA 8.6 MG TABLET PO SCH (08:54)
[2017-04-01] MEDS: FUROSEMIDE 40 MG TABLET PO SCH ×2 (08:54→14:21)
[2017-04-01] MEDS: AMIODARONE 200 MG TABLET PO SCH (08:54)
[2017-04-01] MEDS: FENOFIBRATE 48 MG TABLET PO SCH (08:54)
[2017-04-01] MEDS: ENOXAPARIN 40 MG/0.4 ML SYRINGE SUBQ SCH (08:55)
[2017-04-01] MEDS: DOCUSATE SODIUM 250 MG CAPSULE PO SCH (08:55)
[2017-04-01] MEDS: MULTIVITAMIN TABLET PO SCH (08:55)
[2017-04-01] MEDS: ASPIRIN EC 81 MG TABLET PO SCH (08:55)
[2017-04-01] MEDS: OMEGA-3 ACID ETHYL ESTERS 1 GM CAPSULE PO SCH ×2 (08:56→21:43)
[2017-04-01] MEDS: NYSTATIN POWDER 15 GM TOP SCH ×2 (09:00→21:43)
[2017-04-01] MEDS: MUPIROCIN 2% OINT 22 GM TUBE TOP SCH ×2 (09:00→21:43)
[2017-04-01] MEDS: NYSTATIN CREAM 15 GM TUBE TOP SCH ×2 (09:06→21:43)
--- NOTE | 2017-04-01 11:00 | PROVIDER PROGRESS NOTE ---
Subjective - Prog Note Date Prog Note Date: 04/01/17 Prog Note Time: 11:07 (Patient seen yesterday as well and examined, no change in exam) - Subjective Pt reports feeling: No change ("I need a better attitude" His mother was in the ED yesterday after a fall (he normally lives with her), and she also recently was alone for her 82nd birthday. Fortunately she had no injury and is back home he notes he was fighting glucoses in the 300's, and at home 98 is a low and mid 200's is high) Current Medications - Current Medications Current Medications: Active Medications Generic Name Dose Route Start Last Admin Trade Name Freq PRN Reason Stop Dose Admin Acetaminophen/Hydrocodone Bitart 1 tab 03/18/17 15:46 03/28/17 20:42 [place] 10 Mg/325 Mg PO 2 tab Q4HR PRN Administration PAIN Acetaminophen/Hydrocodone Bitart 2 tab 03/18/17 15:46 04/01/17 07:42 [place] 10 Mg/325 Mg PO 2 tab Q4HR PRN Administration PAIN Amiodarone HCl 200 mg 03/31/17 09:00 04/01/17 08:54 Pacerone PO 200 mg DAILY [place] Administration Aspirin 81 mg 03/21/17 09:00 04/01/17 08:55 Ecotrin PO 81 mg DAILY [place] Administration Atorvastatin Calcium 10 mg 03/15/17 21:00 03/31/17 23:20 Lipitor PO 10 mg QPM [place] Administration Baclofen 10 mg 03/15/17 16:40 03/30/17 21:16 Lioresal PO 10 mg TID PRN Administration Cramp Docusate Sodium 250 - 500 mg 03/17/17 09:00 04/01/17 08:55 Colace 250mg Capsule PO 250 mg DAILY AR[place] Administration Enoxaparin Sodium 40 mg 03/17/17 09:00 04/01/17 08:55 Lovenox SUBQ 40 mg DAILY AR[place] Administration Fenofibrate 144 mg 03/16/17 09:00 04/01/17 08:54 Tricor PO 144 mg DAILY AR[place] Administration Furosemide 80 mg 03/16/17 09:00 04/01/17 08:54 Lasix PO 80 mg DAILY AR[place] Administration Furosemide 40 mg 03/28/17 16:00 03/31/17 13:01 Lasix PO 40 mg DAILY@1400 [place] Administration Gabapentin 200 mg 03/15/17 21:00 03/31/17 23:21 Neurontin PO 200 mg QPM AR[place] Administration Insulin Aspart 40 unit 03/15/17 17:00 04/01/17 07:43 Novolog SUBQ 40 unit TIDWM [place] Administration Insulin Aspart 3 - 11 unit 03/30/17 12:00 04/01/17 07:45 Novolog SUBQ 7 unit 0800,1200,1700,2100 AR[place] Administration Protocol Insulin Glargine 80 unit 04/01/17 21:00 Lantus Solostar SUBQ QPM ARDEN Lisinopril 10 mg 03/31/17 09:00 04/01/17 08:54 Zestril PO 10 mg DAILY AR[place] Administration Multivitamins 1 tab 03/16/17 08:00 04/01/17 08:55 Theragran PO 1 tab DAILYWM [place] Administration Mupirocin 1 applic 03/21/17 21:00 04/01/17 09:00 Bactroban 2% Oint TOP 1 applic BID AR[place] Administration Nystatin 1 applic 03/19/17 14:00 04/01/17 09:06 Mycostatin Cream TOP 1 applic BID AR[place] Administration Nystatin 1 applic 03/19/17 14:00 04/01/17 09:00 Nystop TOP 1 applic BID AR[place] Administration [id number] Ethyl Esters 2 gm 03/15/17 21:00 04/01/17 08:56 Lovaza PO 2 gm BID AR[place] Administration Polyethylene Glycol 17 gm 03/17/17 09:00 04/01/17 08:52 Miralax PO 17 gm DAILY AR[place] Administration Saccharomyces Boulardii 250 mg 03/16/17 17:00 04/01/17 07:42 Florastor PO 250 mg BIDWM [place] Administration Senna 8.6 - 17.2 mg 03/17/17 09:00 04/01/17 08:54 Senokot PO 8.6 mg DAILY [place] Administration Sertraline HCl 300 mg 03/15/17 21:00 03/31/17 23:20 Zoloft PO 300 mg QPM AR[place] Administration Insulin Glargine,Hum.rec.anlog [Lantus Solostar] 76 unit SQ QPM 03/20/13 Lisinopril 10 mg PO BID 06/05/13 Lovastatin 40 mg PO QPM 03/20/13 Multivitamin [Multivitamins] 1 each PO DAILY 03/20/13 metFORMIN [Glucophage] 1,000 mg PO BIDWM 03/20/13 Fenofibrate 160 mg PO DAILY 06/10/14 Aspirin 81 mg PO DAILY 10/04/16 HYDROcodone/ACET 10/325 [[place] 10 mg/325 mg] 1 tab PO QID 10/04/16 Insulin Aspart [Novolog Flexpen] 40 unit SUBQ TIDWM 10/04/16 Furosemide [Lasix] 80 mg PO DAILY 03/11/17 Gabapentin 100 - 200 mg PO QPM 03/11/17 Icosapent Ethyl [Vascepa] 2 gm PO BID 03/12/17 Sertraline HCl [Zoloft] 300 mg PO QPM 03/12/17 Objective - Vital Signs/Intake & Output Reviewed Vital Signs: Yes Vital Signs: Vital Signs x48h Temp Pulse Resp BP Pulse Ox 04/01/17 08:21 36.4 C L 83 16 109/71 97 Intake & Output: Intake & Output 03/29/17 03/30/17 03/31/17 04/01/17 23:59 23:59 23:59 23:59 Intake Total 1440 1840 1890 556 Output Total 5150 3425 2950 1100 Balance -3710 -1585 -1060 -544 - Objective General Appearance: positive: Other (no acute distress RN cleaning his feet currently, somewhat flat affect) Respiratory: positive: No respiratory distress, Other (trach collar intact) Cardiovascular: positive: Regular rate & rhythm (sounds regular at controlled rate) Abdomen: positive: Other (obese) Skin: positive: Dry. negative: Diaphoresis Extremities: positive: Pedal edema, Other (obese extremities, no real appreciable edema Rns cleaning between toes, tinea improved) Neurologic/Psychiatric: positive: Oriented x3, Mood/affect nml (flat affect, appropropriate situational frustration and discouraged that his mother fell) - Lab Results Fish Bones: 03/31/17 05:11 03/31/17 05:11 Other Labs: Lab Results x24hrs 04/01/17 03/31/17 03/31/17 Range/Units 07:29 16:35 11:13 POC Whole Bld Glucose 226 H 135 H 220 H (70 - 100) mg/dL Assessment/Plan - Problem List (1) Atrial fibrillation with RVR Impression: Atrial fibrillation/flutter with history of afib/RVR Impression: No change, continues amiodarone w/ good rate control hx February 2017 [facility] admit afib RVR/ >>> reverted to NSR, this admit : atrial flutter rate controlled on 200 mg daily 70's, 80's Amiodarone currently being tapered RE: stroke prevention; no anticoagulation bc of prev brain hemorrhage 2) Fracture of distal end of tibia on side of hemiparesis (from 2007 SAH) Assessment/Plan: 04/01no change 03/30 PT inquired re: when might be wt bearing per ortho. I discussed w/ Dr. Garcia. He indicated -recheck tib Xray 4 wks from time of fx>>>>>>REpeat Tib/Fib films on R first week of April - he does not intend to recommend casting or CAM walker due to the hemiplegia and fact that he had a soft tissue ulcer (3) Hypercapnia/ metabolic alkalosis Impression: 04/01 no change no change 03/30 compensation for resp acidosis carbon dioxide peaked at 40. At 35 yesterday obesity hypoventilation or PAUL stable (4) [place] (acute kidney injury) Impression: present on admission resolved BUN / Cr 16/1.2 today (1.4 last check 03/27) (5) HTN (hypertension), benign Impression: 03/30 BP low 100's on bid lisionpril : will stop pm dose 03/29he was on lisinopril and diltiazem (the latter for afib). but the BP too low so switched to amiodarone for rate control and BP bounced up to normal off the dilt. continue lisinopril (6) Health Care acquired pneumonia HCAP (associated with trach, in and out of hospital) s/p 10 days of zosyn and levaquin blood C&S neg. (6) Diabetes type 2, uncontrolled Impression: 04/01; increasing basal lantus to 80 (goal 140-180) he is currently getting a little less than 50% of his insulin as basal, and 120 u/ day as prandial got 15 extra units as correctional 03/31 03/30 FSBG last 24 hrs a above; will follow how much (correction) he gets and possibly modify dose as last few over glucoses 200 but was uncontrolled on admission and much better now. 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
[2017-04-01] MEDS: ATORVASTATIN 10 MG TABLET PO SCH (21:41)
[2017-04-01] MEDS: GABAPENTIN 100 MG CAPSULE PO SCH (21:41)
[2017-04-01] MEDS: INSULIN GLARGINE 300 UNIT/3 ML PEN SUBQ SCH (21:42)
[2017-04-01] MEDS: SERTRALINE 50 MG TABLET PO SCH (21:43)
[2017-04-02] MEDS: HYDROcod/ACETAM 10 MG/325 MG TABLET PO PRN ×4 (02:09→22:20)
[2017-04-02] MEDS: INSULIN ASPART 300 UNIT/3 ML PEN SUBQ SCH ×7 (07:47→22:22)
[2017-04-02] MEDS: DOCUSATE SODIUM 250 MG CAPSULE PO SCH (08:09)
[2017-04-02] MEDS: FENOFIBRATE 48 MG TABLET PO SCH (08:10)
[2017-04-02] MEDS: FUROSEMIDE 40 MG TABLET PO SCH ×2 (08:10→13:49)
[2017-04-02] MEDS: OMEGA-3 ACID ETHYL ESTERS 1 GM CAPSULE PO SCH ×2 (08:10→22:22)
[2017-04-02] MEDS: MULTIVITAMIN TABLET PO SCH (08:10)
[2017-04-02] MEDS: AMIODARONE 200 MG TABLET PO SCH (08:10)
[2017-04-02] MEDS: ASPIRIN EC 81 MG TABLET PO SCH (08:10)
[2017-04-02] MEDS: SACCHAROMYCES BOULARDII 250 MG CAPSULE PO SCH (08:10)
[2017-04-02] MEDS: SENNA 8.6 MG TABLET PO SCH ×2 (08:10→22:21)
[2017-04-02] MEDS: POLYETHYLENE GLYCOL 3350 17 GM PACKET PO SCH (08:11)
[2017-04-02] MEDS: ENOXAPARIN 40 MG/0.4 ML SYRINGE SUBQ SCH (08:11)
[2017-04-02] MEDS: NYSTATIN CREAM 15 GM TUBE TOP SCH ×2 (08:19→22:22)
[2017-04-02] MEDS: NYSTATIN POWDER 15 GM TOP SCH ×3 (08:19→22:22)
[2017-04-02] MEDS: MUPIROCIN 2% OINT 22 GM TUBE TOP SCH ×2 (08:19→22:22)
[2017-04-02] MEDS ORDERED: LISINOPRIL 5 MG TABLET PO SCH (09:00)
--- NOTE | 2017-04-02 13:53 | PROVIDER PROGRESS NOTE ---
Subjective - Prog Note Date Prog Note Date: 04/02/17 Prog Note Time: 13:52 - Subjective Subjective: c/o Right jaw pain when opens mouth and when chews pocketing food on Left to chew no foul taste in mouth pain source uppermolar hasnt seen dentist in "years" Current Medications - Current Medications Current Medications: Active Medications Generic Name Dose Route Start Last Admin Trade Name Freq PRN Reason Stop Dose Admin Acetaminophen/Hydrocodone Bitart 1 tab 03/18/17 15:46 03/28/17 20:42 Hopewell 10 Mg/325 Mg PO 2 tab Q4HR PRN Administration PAIN Acetaminophen/Hydrocodone Bitart 2 tab 03/18/17 15:46 04/02/17 13:53 Hopewell 10 Mg/325 Mg PO 2 tab Q4HR PRN Administration PAIN Amiodarone HCl 200 mg 03/31/17 09:00 04/02/17 08:10 Pacerone PO 200 mg DAILY ARDEN Administration Aspirin 81 mg 03/21/17 09:00 04/02/17 08:10 Ecotrin PO 81 mg DAILY ARDEN Administration Atorvastatin Calcium 10 mg 03/15/17 21:00 04/01/17 21:41 Lipitor PO 10 mg QPM ARDEN Administration Baclofen 10 mg 03/15/17 16:40 03/30/17 21:16 Lioresal PO 10 mg TID PRN Administration Cramp Docusate Sodium 250 - 500 mg 03/17/17 09:00 04/02/17 08:09 Colace 250mg Capsule PO 250 mg DAILY ARDEN Administration Enoxaparin Sodium 40 mg 03/17/17 09:00 04/02/17 08:11 Lovenox SUBQ 40 mg DAILY ARDEN Administration Fenofibrate 144 mg 03/16/17 09:00 04/02/17 08:10 Tricor PO 144 mg DAILY ARDEN Administration Furosemide 80 mg 03/16/17 09:00 04/02/17 08:10 Lasix PO 80 mg DAILY ARDEN Administration Furosemide 40 mg 03/28/17 16:00 04/02/17 13:49 Lasix PO 40 mg DAILY@1400 ARDEN Administration Gabapentin 200 mg 03/15/17 21:00 04/01/17 21:41 Neurontin PO 200 mg QPM ARDEN Administration Insulin Aspart 40 unit 03/15/17 17:00 04/02/17 12:07 Novolog SUBQ 40 unit TIDWM ARDEN Administration Insulin Aspart 3 - 11 unit 03/30/17 12:00 04/02/17 12:07 Novolog SUBQ 5 unit 0800,1200,1700,2100 ARDEN Administration Protocol Insulin Glargine 80 unit 04/01/17 21:00 04/01/17 21:42 Lantus Solostar SUBQ 80 unit QPM ARDEN Administration Lisinopril 2.5 mg 04/03/17 09:00 Zestril PO DAILY ARDEN Multivitamins 1 tab 03/16/17 08:00 04/02/17 08:10 Theragran PO 1 tab DAILYWM ARDEN Administration Mupirocin 1 applic 03/21/17 21:00 04/02/17 08:19 Bactroban 2% Oint TOP 1 applic BID ARDEN Administration Nystatin 1 applic 03/19/17 14:00 04/02/17 08:19 Mycostatin Cream TOP 1 applic BID ARDEN Administration Nystatin 1 applic 03/19/17 14:00 04/02/17 08:19 Nystop TOP 1 applic BID ARDEN Administration Lalah-4-[id number] Ethyl Esters 2 gm 03/15/17 21:00 04/02/17 08:10 Lovaza PO 2 gm BID ARDEN Administration Polyethylene Glycol 17 gm 03/17/17 09:00 04/02/17 08:11 Miralax PO 17 gm DAILY ARDEN Administration Saccharomyces Boulardii 250 mg 03/16/17 17:00 04/02/17 08:10 Florastor PO 250 mg BIDWM ARDEN Administration Senna 8.6 - 17.2 mg 03/17/17 09:00 04/02/17 08:10 Senokot PO 8.6 mg DAILY ARDEN Administration Sertraline HCl 300 mg 03/15/17 21:00 04/01/17 21:43 Zoloft PO 300 mg QPM ARDEN Administration Insulin Glargine,Hum.rec.anlog [Lantus Solostar] 76 unit SQ QPM 03/20/13 Lisinopril 10 mg PO BID 03/20/13 Lovastatin 40 mg PO QPM 03/20/13 Multivitamin [Multivitamins] 1 each PO DAILY 03/20/13 metFORMIN [Glucophage] 1,000 mg PO BIDWM 03/20/13 Fenofibrate 160 mg PO DAILY 06/10/14 Aspirin 81 mg PO DAILY 10/04/16 HYDROcodone/ACET 10/325 [Hopewell 10 mg/325 mg] 1 tab PO QID 10/04/16 Insulin Aspart [Novolog Flexpen] 40 unit SUBQ TIDWM 10/04/16 Furosemide [Lasix] 80 mg PO DAILY 03/11/17 Gabapentin 100 - 200 mg PO QPM 03/11/17 Icosapent Ethyl [Vascepa] 2 gm PO BID 03/12/17 Sertraline HCl [Zoloft] 300 mg PO QPM 03/12/17 Objective - Vital Signs/Intake & Output Reviewed Vital Signs: Yes Vital Signs: Vital Signs x48h Temp Pulse Resp Pulse Ox 04/02/17 09:39 36.4 C L 77 16 98 Intake & Output: Intake & Output 03/30/17 03/31/17 04/01/17 04/02/17 23:59 23:59 23:59 23:59 Intake Total 1840 1890 1868 1452 Output Total 3425 2950 5050 4200 Balance -1585 -1060 -3182 -2748 - Objective General Appearance: positive: No acute distress, Other (sitting in bariatric chair bed using computer, alert, oriented, appropriate, slightly flat affect) Neck: positive: Other (trach collar intact) Respiratory: positive: No respiratory distress, Breath sounds nml. negative: Wheezes, Rales, Rhonchi Cardiovascular: positive: Regular rate & rhythm (sounds regular on exam w/ controlled rate), No murmur Abdomen: positive: Nml bowel sounds, No distention, Other (obese, groin folds not examined). negative: Tenderness Skin: positive: Warm, Dry Extremities: positive: Pedal edema (mostly obese, only ~ +1 edema, some wrinkling left foot (fracture side) Neurologic/Psychiatric: positive: Oriented x3, Mood/affect nml (slightly flat) - Lab Results Fish Bones: 03/31/17 05:11 03/31/17 05:11 Other Labs: Lab Results x24hrs 04/02/17 04/02/17 Range/Units 11:35 07:32 POC Whole Bld Glucose 199 H 214 H (70 - 100) mg/dL Assessment/Plan - Problem List (1) Atrial fibrillation with RVR Impression: Atrial fibrillation/flutter with history of afib/RVR Impression: 04/02; rate controlled February 2017 [facility] admission afib RVR/ >>> reverted to NSR, this admit : atrial flutter rate controlled on 200 mg daily AMiodarone 70's, 80's Amiodarone currently being tapered RE: stroke prevention; no anticoagulation bc of prev brain hemorrhage 2) Fracture of distal end of tibia on side of hemiparesis (from 2007 SAH) Assessment/Plan: 04/02 no change 03/30 PT inquired re: when might be wt bearing per ortho. I discussed w/ Dr. Garcia. He indicated -recheck tib Xray 4 wks from time of fx>>>>>>REpeat Tib/Fib films on R first week of April - he does not intend to recommend casting or CAM walker due to the hemiplegia and fact that he had a soft tissue ulcer (3) R upper molar dental caries start with warm salt water rinses after meals and bedtime for now if any worsening or swelling, will start augmentin dentist after d/c (doubt there is any way to get a patient pending placement to get a dental appt but will ask in d/c planning rounds in am) 4 Hypercapnia/ metabolic alkalosis Impression: no indication to recheck BMP no change 03/30 compensation for resp acidosis carbon dioxide peaked at 40. At 35 yesterday obesity hypoventilation or PAUL stable (5) Diabetes type 2, uncontrolled Impression: 04/02; a little better today; glucs under (just under) 200 04/01; increasing basal lantus to 80 (goal 140-180) he is currently getting a little less than 50% of his insulin as basal, and 120 u/ day as prandial got 15 extra units as correctional 03/31 03/30 FSBG last 24 hrs a above; will follow how much (correction) he gets and possibly modify dose as last few over glucoses 200 but was uncontrolled on admission and much better now (6) HTN (hypertension), benign Impression: 04/02 SBP has been in low 100's most of admission Have reduced lisinopril, still SBP ~ 100, will reduce to 2.5 mg to still allow for DM renal protection while on bedrest does not appear to need the higher dose he was on at home 03/29he was on lisinopril and diltiazem (the latter for afib). but the BP too low so switched to amiodarone for rate control and BP bounced up to normal off the dilt. continue lisinopril 7AKI (acute kidney injury) Impression: present on admission resolved last 1.1 on 03/31; no indication to recheck currently (8 ) . Constipation: resolved, ( continue daily miralax [facility] acquired pneumonia HCAP (associated with trach, in and out of hospital) s/p 10 days of zosyn and levaquin blood C&S neg. 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
[2017-04-02] MEDS: ATORVASTATIN 10 MG TABLET PO SCH (22:20)
[2017-04-02] MEDS: GABAPENTIN 100 MG CAPSULE PO SCH (22:21)
[2017-04-02] MEDS: INSULIN GLARGINE 300 UNIT/3 ML PEN SUBQ SCH (22:23)
[2017-04-02] MEDS: SERTRALINE 50 MG TABLET PO SCH (22:27)
[2017-04-03] MEDS: HYDROcod/ACETAM 10 MG/325 MG TABLET PO PRN ×4 (03:37→20:25)
[2017-04-03] MEDS: SENNA 8.6 MG TABLET PO SCH ×4 (03:37→14:07)
[2017-04-03] MEDS: INSULIN ASPART 300 UNIT/3 ML PEN SUBQ SCH ×7 (08:53→20:27)
[2017-04-03] MEDS: NYSTATIN CREAM 15 GM TUBE TOP SCH ×2 (08:54→20:25)
[2017-04-03] MEDS: MUPIROCIN 2% OINT 22 GM TUBE TOP SCH ×2 (08:54→20:25)
[2017-04-03] MEDS: NYSTATIN POWDER 15 GM TOP SCH ×2 (08:54→20:25)
[2017-04-03] MEDS: POLYETHYLENE GLYCOL 3350 17 GM PACKET PO SCH (09:05)
[2017-04-03] MEDS: OMEGA-3 ACID ETHYL ESTERS 1 GM CAPSULE PO SCH ×2 (09:06→20:24)
[2017-04-03] MEDS: ENOXAPARIN 40 MG/0.4 ML SYRINGE SUBQ SCH (09:06)
[2017-04-03] MEDS: MULTIVITAMIN TABLET PO SCH (09:06)
[2017-04-03] MEDS: FUROSEMIDE 40 MG TABLET PO SCH ×2 (09:07→14:07)
[2017-04-03] MEDS: ASPIRIN EC 81 MG TABLET PO SCH (09:07)
[2017-04-03] MEDS: FENOFIBRATE 48 MG TABLET PO SCH (09:07)
[2017-04-03] MEDS: LISINOPRIL 5 MG TABLET PO SCH (09:07)
[2017-04-03] MEDS: AMIODARONE 200 MG TABLET PO SCH (09:07)
[2017-04-03] MEDS: DOCUSATE SODIUM 250 MG CAPSULE PO SCH (09:08)
[2017-04-03] MEDS: ATORVASTATIN 10 MG TABLET PO SCH (20:24)
[2017-04-03] MEDS: GABAPENTIN 100 MG CAPSULE PO SCH (20:24)
[2017-04-03] MEDS: SERTRALINE 50 MG TABLET PO SCH (20:24)
[2017-04-03] MEDS: INSULIN GLARGINE 300 UNIT/3 ML PEN SUBQ SCH (20:26)
--- NOTE | 2017-04-03 21:15 | PROVIDER PROGRESS NOTE ---
Subjective - Prog Note Date Prog Note Date: 04/03/17 Prog Note Time: 21:12 - Subjective Subjective: R jaw pain much improved w/ the salt water rinses Current Medications - Current Medications Current Medications: Active Medications Generic Name Dose Route Start Last Admin Trade Name Freq PRN Reason Stop Dose Admin Acetaminophen/Hydrocodone Bitart 1 tab 03/18/17 15:46 03/28/17 20:42 Artie 10 Mg/325 Mg PO 2 tab Q4HR PRN Administration PAIN Acetaminophen/Hydrocodone Bitart 2 tab 03/18/17 15:46 04/03/17 20:25 Artie 10 Mg/325 Mg PO 2 tab Q4HR PRN Administration PAIN Amiodarone HCl 200 mg 03/31/17 09:00 04/03/17 09:07 Pacerone PO 200 mg DAILY ARDEN Administration Aspirin 81 mg 03/21/17 09:00 04/03/17 09:07 Ecotrin PO 81 mg DAILY ARDEN Administration Atorvastatin Calcium 10 mg 03/15/17 21:00 04/03/17 20:24 Lipitor PO 10 mg QPM ARDEN Administration Baclofen 10 mg 03/15/17 16:40 03/30/17 21:16 Lioresal PO 10 mg TID PRN Administration Cramp Docusate Sodium 250 - 500 mg 03/17/17 09:00 04/03/17 09:08 Colace 250mg Capsule PO 250 mg DAILY ARDEN Administration Enoxaparin Sodium 40 mg 03/17/17 09:00 04/03/17 09:06 Lovenox SUBQ 40 mg DAILY ARDEN Administration Fenofibrate 144 mg 03/16/17 09:00 04/03/17 09:07 Tricor PO 144 mg DAILY ARDEN Administration Furosemide 80 mg 03/16/17 09:00 04/03/17 09:07 Lasix PO 80 mg DAILY ARDEN Administration Furosemide 40 mg 03/28/17 16:00 04/03/17 14:07 Lasix PO 40 mg DAILY@1400 ARDEN Administration Gabapentin 200 mg 03/15/17 21:00 04/03/17 20:24 Neurontin PO 200 mg QPM ARDEN Administration Insulin Aspart 40 unit 03/15/17 17:00 04/03/17 17:02 Novolog SUBQ 40 unit TIDWM ARDEN Administration Insulin Aspart 3 - 11 unit 03/30/17 12:00 04/03/17 20:27 Novolog SUBQ 7 unit 0800,1200,1700,2100 ARDEN Administration Protocol Insulin Glargine 80 unit 04/01/17 21:00 04/03/17 20:26 Lantus Solostar SUBQ 80 unit QPM ARDEN Administration Lisinopril 2.5 mg 04/03/17 09:00 04/03/17 09:07 Zestril PO 2.5 mg DAILY ARDEN Administration Multivitamins 1 tab 03/16/17 08:00 04/03/17 09:06 Theragran PO 1 tab DAILYWM ARDEN Administration Mupirocin 1 applic 03/21/17 21:00 04/03/17 20:25 Bactroban 2% Oint TOP 1 applic BID ARDEN Administration Nystatin 1 applic 03/19/17 14:00 04/03/17 20:25 Mycostatin Cream TOP 1 applic BID ARDEN Administration Nystatin 1 applic 03/19/17 14:00 04/03/17 20:25 Nystop TOP 1 applic BID ARDEN Administration Spniw-3-Ikce Ethyl Esters 2 gm 03/15/17 21:00 04/03/17 20:24 Lovaza PO 2 gm BID ARDEN Administration Polyethylene Glycol 17 gm 03/17/17 09:00 04/03/17 09:05 Miralax PO 17 gm DAILY ARDEN Administration Senna 8.6 - 17.2 mg 03/17/17 09:00 04/03/17 09:07 Senokot PO 17.2 mg DAILY ARDEN Administration Sertraline HCl 300 mg 03/15/17 21:00 04/03/17 20:24 Zoloft PO 300 mg QPM ARDEN Administration Insulin Glargine,Hum.rec.anlog [Lantus Solostar] 76 unit SQ QPM 03/20/13 Lisinopril 10 mg PO BID 03/20/13 Lovastatin 40 mg PO QPM 03/20/13 Multivitamin [Multivitamins] 1 each PO DAILY 03/20/13 metFORMIN [Glucophage] 1,000 mg PO BIDWM 03/20/13 Fenofibrate 160 mg PO DAILY 06/10/14 Aspirin 81 mg PO DAILY 10/04/16 HYDROcodone/ACET 10/325 [Artie 10 mg/325 mg] 1 tab PO QID 10/04/16 Insulin Aspart [Novolog Flexpen] 40 unit SUBQ TIDWM 10/04/16 Furosemide [Lasix] 80 mg PO DAILY 03/11/17 Gabapentin 100 - 200 mg PO QPM 03/11/17 Icosapent Ethyl [Vascepa] 2 gm PO BID 03/12/17 Sertraline HCl [Zoloft] 300 mg PO QPM 03/12/17 Objective - Vital Signs/Intake & Output Reviewed Vital Signs: Yes Vital Signs: Vital Signs x48h Temp Pulse Resp BP Pulse Ox 04/03/17 17:00 36.9 C 82 20 106/68 97 Intake & Output: Intake & Output 03/31/17 04/01/17 04/02/17 04/03/17 23:59 23:59 23:59 23:59 Intake Total 1890 1863 2582 690 Output Total 2955 7263 5971 0566 Balance -2230 -3182 -3543 -3400 - Objective General Appearance: positive: No acute distress, Other (flat affect) Respiratory: positive: Chest non-tender, No respiratory distress, Breath sounds nml, Other (trach collar intact) Cardiovascular: positive: Regular rate & rhythm Skin: positive: Warm, Dry, Other Neurologic/Psychiatric: positive: Mood/affect nml (slightly flat) - Lab Results Fish Bones: 03/31/17 05:11 03/31/17 05:11 Other Labs: Lab Results x24hrs 04/03/17 04/03/17 04/03/17 Range/Units 16:47 11:13 07:52 POC Whole Bld Glucose 177 H 215 H 212 H (70 - 100) mg/dL Assessment/Plan - Problem List (1) Atrial fibrillation with RVR Impression: 04/03; rate controlled February 2017 [facility] admission afib RVR/ >>> reverted to NSR, this admit : atrial flutter rate controlled on 200 mg daily AMiodarone 70's, 80's Amiodarone currently being tapered RE: stroke prevention; no anticoagulation bc of prev brain hemorrhage 2) Fracture of distal end of tibia on side of hemiparesis (from 2007 SAH) Assessment/Plan: 04/03 no change 03/30 PT inquired re: when might be wt bearing per ortho. I discussed w/ Dr. Garcia. He indicated -recheck tib Xray 4 wks from time of fx>>>>>>REpeat Tib/Fib films on R first week of April - he does not intend to recommend casting or CAM walker due to the hemiplegia and fact that he had a soft tissue ulcer (3) R upper molar dental caries 04/03 improved 04/02 start with warm salt water rinses after meals and bedtime for now if any worsening or swelling, will start augmentin dentist after d/c (doubt there is any way to get a patient pending placement to get a dental appt but will ask in d/c planning rounds in am) 4 Hypercapnia/ metabolic alkalosis Impression: no indication to recheck BMP no change 03/30 compensation for resp acidosis carbon dioxide peaked at 40. At 35 yesterday obesity hypoventilation or PAUL stable (5) Diabetes type 2, uncontrolled Impression: 04/03, ; a little better last 2 days glucs under (just under) 200 04/01; increasing basal lantus to 80 (goal 140-180) he is currently getting a little less than 50% of his insulin as basal, and 120 u/ day as prandial 03/30 (6) HTN (hypertension), benign Impression: 04/03 SBP has been in low 100's most of admission Have reduced lisinopril, still SBP ~ 100, will reduce to 2.5 mg to still allow for DM renal protection (BP a bit better on lower dose while on bedrest does not appear to need the higher dose he was on at home 03/29he was on lisinopril and diltiazem (the latter for afib). but the BP too low so switched to amiodarone for rate control and BP bounced up to normal off the dilt. continue lisinopril 7AKI (acute kidney injury) Impression: present on admission resolved last 1.1 on 03/31; no indication to recheck currently (8 ) . Constipation: resolved, ( continue daily miralax [facility] acquired pneumonia HCAP (associated with trach, in and out of hospital) s/p 10 days of zosyn and levaquin blood C&S neg. 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
[2017-04-04] MEDS: HYDROcod/ACETAM 10 MG/325 MG TABLET PO PRN ×4 (01:30→22:10)
[2017-04-04] MEDS: POLYETHYLENE GLYCOL 3350 17 GM PACKET PO SCH (08:27)
[2017-04-04] MEDS: MUPIROCIN 2% OINT 22 GM TUBE TOP SCH ×2 (08:28→21:47)
[2017-04-04] MEDS: NYSTATIN POWDER 15 GM TOP SCH ×2 (08:28→21:47)
[2017-04-04] MEDS: ENOXAPARIN 40 MG/0.4 ML SYRINGE SUBQ SCH (08:28)
[2017-04-04] MEDS: LISINOPRIL 5 MG TABLET PO SCH (08:29)
[2017-04-04] MEDS: MULTIVITAMIN TABLET PO SCH (08:29)
[2017-04-04] MEDS: DOCUSATE SODIUM 250 MG CAPSULE PO SCH (08:29)
[2017-04-04] MEDS: FUROSEMIDE 40 MG TABLET PO SCH ×2 (08:29→14:15)
[2017-04-04] MEDS: ASPIRIN EC 81 MG TABLET PO SCH (08:29)
[2017-04-04] MEDS: SENNA 8.6 MG TABLET PO SCH (08:29)
[2017-04-04] MEDS: FENOFIBRATE 48 MG TABLET PO SCH (08:29)
[2017-04-04] MEDS: AMIODARONE 200 MG TABLET PO SCH (08:30)
[2017-04-04] MEDS: INSULIN ASPART 300 UNIT/3 ML PEN SUBQ SCH ×7 (08:34→21:46)
[2017-04-04] MEDS: NYSTATIN CREAM 15 GM TUBE TOP SCH ×2 (10:05→21:48)
[2017-04-04] MEDS: OMEGA-3 ACID ETHYL ESTERS 1 GM CAPSULE PO SCH ×2 (10:27→21:46)
--- NOTE | 2017-04-04 10:58 | XRAY Report ---
RIGHT ANKLE, THREE VIEWS: 04/04/2017 CLINICAL HISTORY: Patient has a known minimally displaced distal right tibial fracture. This was or iginally noted on 03/11/2017. COMPARISON: 03/11/2017 FINDINGS: Spiral fracture of the distal right tibial shaft is once again seen. There is a second co mponent to the fracture that extends in an oblique fashion into the base of the medial malleolus. No significant change in position or alignment is seen at the fracture site. There has, however, been additional bone resorption along the fracture line. The fracture line appears wider in both the tibi a and at the base of the medial malleolus. The width of the fracture lines have increased from 1 mm to 3 mm in the tibia and from 1 mm to 4 mm across the base of the medial malleolus. Significant meghan tae formation is not noted. There may be some subtle new periosteal callus formation along a focal a wally of the medial aspect of the distal tibial fracture. IMPRESSION: RECENT FRACTURE OF THE DISTAL TIBIA IS ONCE AGAIN NOTED WITH EXTENSION OF THE FRACTURE L INE INTO THE BASE OF THE MEDIAL MALLEOLUS. NO CHANGE IN POSITION OR ALIGNMENT IS SEEN. FRACTURE LIBERTAD E APPEARS SLIGHTLY WIDER ON TODAY'S EXAM THAN PRECEDING EXAM. NO SIGNIFICANT CALLUS FORMATION IS NOT ED. JOB #: [id number] EXT JOB #:[id number]
--- NOTE | 2017-04-04 13:33 | PROVIDER PROGRESS NOTE ---
Subjective - Prog Note Date Prog Note Date: 04/04/17 Prog Note Time: 13:31 - Subjective Pt reports feeling: No change Objective - Vital Signs/Intake & Output Vital Signs: Vital Signs x48h Temp Pulse Resp BP Pulse Ox 04/04/17 09:46 37.0 C 91 20 114/70 96 Intake & Output: Intake & Output 04/01/17 04/02/17 04/03/17 04/04/17 23:59 23:59 23:59 23:59 Intake Total 1868 2582 1190 1706 Output Total 5053 1102 5406 1999 Balance -3182 -3543 -4210 -294 - Objective General Appearance: positive: No acute distress, Alert Eyes Bilateral: positive: Normal inspection, PERRL ENT: positive: ENT inspection nml, Pharynx nml Neck: positive: Nml inspection, Trachea midline Respiratory: positive: Chest non-tender, No respiratory distress, Breath sounds nml Cardiovascular: positive: Regular rate & rhythm, No murmur Peripheral Pulses: 2+ Radial (R), 2+ Radial (L), 2+ Dorsalis pedis (R), 2+ Dorsalis pedis (L) Abdomen: positive: Non-tender, Nml bowel sounds Back: positive: Nml inspection Skin: positive: Color nml, Warm Extremities: positive: Non-tender Neurologic/Psychiatric: positive: Oriented x3, Sensation nml, Mood/affect nml - Lab Results Fish Bones: 03/31/17 05:11 03/31/17 05:11 Other Labs: Lab Results x24hrs 04/04/17 04/03/17 Range/Units 08:00 16:47 POC Whole Bld Glucose 180 H 177 H (70 - 100) mg/dL Assessment/Plan - Problem List (1) Fracture of distal end of tibia Impression: 04/04; rate controlled Xray of right ankle reveals the fracture of distal tibia appears slightly wider than previous image study. Pt was notified the slight changing. No new complaint, wait for the availability of bed. - Problem List (1) Atrial fibrillation with RVR Impression: 04/04; rate controlled February [facility] admission afib RVR/ >>> reverted to NSR, this admit : atrial flutter rate controlled on 200 mg daily AMiodarone 70's, 80's Amiodarone currently being tapered RE: stroke prevention; no anticoagulation bc of prev brain hemorrhage 2) Fracture of distal end of tibia on side of hemiparesis (from 2007 SAH) Assessment/Plan: 04/04 no change, xray on today, without significant changing as before 03/30 PT inquired re: when might be wt bearing per ortho. I discussed w/ Dr. Garcia. He indicated -recheck tib Xray 4 wks from time of fx>>>>>>REpeat Tib/Fib films on R first week of April - he does not intend to recommend casting or CAM walker due to the hemiplegia and fact that he had a soft tissue ulcer (3) R upper molar dental caries 04/04 improved 04/02 start with warm salt water rinses after meals and bedtime for now if any worsening or swelling, will start augmentin dentist after d/c (doubt there is any way to get a patient pending placement to get a dental appt but will ask in d/c planning rounds in am) 4 Hypercapnia/ metabolic alkalosis Impression: no indication to recheck BMP no change 03/30 compensation for resp acidosis carbon dioxide peaked at 40. At 35 yesterday obesity hypoventilation or PAUL stable (5) Diabetes type 2, uncontrolled Impression: 04/04, ; a little better last 2 days glucs under (just under) 200 04/01; increasing basal lantus to 80 (goal 140-180) he is currently getting a little less than 50% of his insulin as basal, and 120 u/ day as prandial 03/30 (6) HTN (hypertension), benign Impression: 04/04 SBP has been in low 100's most of admission Have reduced lisinopril, still SBP ~ 100, will reduce to 2.5 mg to still allow for DM renal protection (BP a bit better on lower dose while on bedrest does not appear to need the higher dose he was on at home 03/29he was on lisinopril and diltiazem (the latter for afib). but the BP too low so switched to amiodarone for rate control and BP bounced up to normal off the dilt. continue lisinopril 7AKI (acute kidney injury) Impression: present on admission resolved last 1.1 on 03/31; no indication to recheck currently (8 ) . Constipation: resolved, ( continue daily miralax [facility] acquired pneumonia HCAP (associated with trach, in and out of hospital) s/p 10 days of zosyn and levaquin blood C&S neg. 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
[2017-04-04] MEDS: GABAPENTIN 100 MG CAPSULE PO SCH (21:46)
[2017-04-04] MEDS: SERTRALINE 50 MG TABLET PO SCH (21:46)
[2017-04-04] MEDS: ATORVASTATIN 10 MG TABLET PO SCH (21:46)
[2017-04-04] MEDS: INSULIN GLARGINE 300 UNIT/3 ML PEN SUBQ SCH (21:47)
[2017-04-05] MEDS ORDERED: BISACODYL 10 MG SUPP PR SCH
[2017-04-05] MEDS: HYDROcod/ACETAM 10 MG/325 MG TABLET PO PRN ×3 (07:43→19:14)
[2017-04-05] MEDS: OMEGA-3 ACID ETHYL ESTERS 1 GM CAPSULE PO SCH ×2 (08:20→22:04)
[2017-04-05] MEDS: AMIODARONE 200 MG TABLET PO SCH (08:21)
[2017-04-05] MEDS: FENOFIBRATE 48 MG TABLET PO SCH (08:21)
[2017-04-05] MEDS: MULTIVITAMIN TABLET PO SCH (08:21)
[2017-04-05] MEDS: NYSTATIN POWDER 15 GM TOP SCH ×2 (08:21→22:04)
[2017-04-05] MEDS: DOCUSATE SODIUM 250 MG CAPSULE PO SCH (08:21)
[2017-04-05] MEDS: ENOXAPARIN 40 MG/0.4 ML SYRINGE SUBQ SCH (08:21)
[2017-04-05] MEDS: ASPIRIN EC 81 MG TABLET PO SCH (08:22)
[2017-04-05] MEDS: SENNA 8.6 MG TABLET PO SCH (08:22)
[2017-04-05] MEDS: FUROSEMIDE 40 MG TABLET PO SCH ×2 (08:22→13:59)
[2017-04-05] MEDS: NYSTATIN CREAM 15 GM TUBE TOP SCH ×2 (08:22→22:04)
[2017-04-05] MEDS: POLYETHYLENE GLYCOL 3350 17 GM PACKET PO SCH (08:22)
[2017-04-05] MEDS: INSULIN ASPART 300 UNIT/3 ML PEN SUBQ SCH ×7 (08:23→22:03)
[2017-04-05] MEDS: MUPIROCIN 2% OINT 22 GM TUBE TOP SCH ×2 (08:24→22:04)
[2017-04-05] MEDS: LISINOPRIL 5 MG TABLET PO SCH (08:26)
[2017-04-05] MEDS ORDERED: MIN OIL/DIMETHICON/COCONUT OIL 92 GM TUBE TOP ONE (10:15)
--- NOTE | 2017-04-05 11:48 | PROVIDER PROGRESS NOTE ---
Subjective - Prog Note Date Prog Note Date: 04/05/17 Prog Note Time: 11:48 - Subjective Pt reports feeling: No change Objective - Vital Signs/Intake & Output Vital Signs: Vital Signs x48h Temp Pulse Resp BP Pulse Ox 04/05/17 07:46 37 C 79 16 101/68 97 Intake & Output: Intake & Output 04/02/17 04/03/17 04/04/17 04/05/17 23:59 23:59 23:59 23:59 Intake Total 2582 1190 2642 1290 Output Total 6117 5400 6375 2350 Balance -3543 -4210 -3733 -1060 - Objective General Appearance: positive: No acute distress, Alert Eyes Bilateral: positive: Normal inspection, PERRL ENT: positive: ENT inspection nml, Pharynx nml Neck: positive: Nml inspection, Trachea midline Respiratory: positive: Chest non-tender, No respiratory distress, Breath sounds nml Cardiovascular: positive: Regular rate & rhythm, No murmur Peripheral Pulses: 2+ Radial (R), 2+ Radial (L), 2+ Dorsalis pedis (R), 2+ Dorsalis pedis (L) Abdomen: positive: Non-tender, Nml bowel sounds Back: positive: Nml inspection Skin: positive: Color nml, Warm Extremities: positive: Non-tender Neurologic/Psychiatric: positive: Oriented x3, Motor nml, Sensation nml - Lab Results Fish Bones: 03/31/17 05:11 03/31/17 05:11 Other Labs: Lab Results x24hrs 04/05/17 04/05/17 04/04/17 Range/Units 11:12 07:22 16:43 POC Whole Bld Glucose 269 H 204 H 168 H (70 - 100) mg/dL Assessment/Plan - Problem List (1) Fracture of distal end of tibia Impression: review pt's vital and lab. Pt is stable. Still seek for replacement Qualifiers: Encounter type: subsequent encounter Fracture type: closed
[2017-04-05] MEDS: SERTRALINE 50 MG TABLET PO SCH (22:02)
[2017-04-05] MEDS: INSULIN GLARGINE 300 UNIT/3 ML PEN SUBQ SCH (22:03)
[2017-04-05] MEDS: GABAPENTIN 100 MG CAPSULE PO SCH (22:03)
[2017-04-05] MEDS: ATORVASTATIN 10 MG TABLET PO SCH (22:03)
[2017-04-06] MEDS: HYDROcod/ACETAM 10 MG/325 MG TABLET PO PRN ×3 (05:57→19:21)
[2017-04-06] MEDS: NYSTATIN POWDER 15 GM TOP SCH ×2 (09:39→21:13)
[2017-04-06] MEDS: NYSTATIN CREAM 15 GM TUBE TOP SCH ×2 (09:39→21:13)
[2017-04-06] MEDS: INSULIN ASPART 300 UNIT/3 ML PEN SUBQ SCH ×7 (09:41→21:07)
[2017-04-06] MEDS: MUPIROCIN 2% OINT 22 GM TUBE TOP SCH ×2 (09:41→21:13)
[2017-04-06] MEDS: ENOXAPARIN 40 MG/0.4 ML SYRINGE SUBQ SCH (09:42)
[2017-04-06] MEDS: FENOFIBRATE 48 MG TABLET PO SCH (10:00)
[2017-04-06] MEDS: DOCUSATE SODIUM 250 MG CAPSULE PO SCH (10:00)
[2017-04-06] MEDS: POLYETHYLENE GLYCOL 3350 17 GM PACKET PO SCH (10:00)
[2017-04-06] MEDS: OMEGA-3 ACID ETHYL ESTERS 1 GM CAPSULE PO SCH ×2 (10:00→20:53)
[2017-04-06] MEDS: FUROSEMIDE 40 MG TABLET PO SCH ×2 (10:00→14:27)
[2017-04-06] MEDS: SENNA 8.6 MG TABLET PO SCH (10:01)
[2017-04-06] MEDS: LISINOPRIL 5 MG TABLET PO SCH (10:01)
[2017-04-06] MEDS: MULTIVITAMIN TABLET PO SCH (10:01)
[2017-04-06] MEDS: AMIODARONE 200 MG TABLET PO SCH (10:01)
[2017-04-06] MEDS: ASPIRIN EC 81 MG TABLET PO SCH (10:01)
--- NOTE | 2017-04-06 15:04 | PROVIDER PROGRESS NOTE ---
Subjective - Prog Note Date Prog Note Date: 04/06/17 Prog Note Time: 15:02 - Subjective Pt reports feeling: No change Objective - Vital Signs/Intake & Output Vital Signs: Vital Signs x48h Temp Pulse Resp BP Pulse Ox 04/06/17 08:00 36.6 C 80 16 115/73 98 Intake & Output: Intake & Output 04/03/17 04/04/17 04/05/17 04/06/17 23:59 23:59 23:59 23:59 Intake Total 1190 2642 2470 1910 Output Total 5400 6375 5800 3620 Balance -4210 -3733 -3330 -1710 - Objective General Appearance: positive: No acute distress, Alert Eyes Bilateral: positive: Normal inspection, PERRL ENT: positive: ENT inspection nml, Pharynx nml, No signs of dehydration Neck: positive: Nml inspection, Other (trachostomy) Respiratory: positive: Chest non-tender, No respiratory distress, Breath sounds nml Cardiovascular: positive: Regular rate & rhythm, No murmur Peripheral Pulses: 2+ Radial (R), 2+ Radial (L) Abdomen: positive: Non-tender, Nml bowel sounds Skin: positive: Color nml, Warm Extremities: positive: Non-tender Neurologic/Psychiatric: positive: Oriented x3, CN's nml (2-12), Sensation nml - Lab Results Fish Bones: 03/31/17 05:11 03/31/17 05:11 Other Labs: Lab Results x24hrs 04/06/17 04/06/17 Range/Units 11:40 07:30 POC Whole Bld Glucose 283 H 221 H (70 - 100) mg/dL Assessment/Plan - Problem List (1) Fracture of distal end of tibia Impression: Pt's vital and lab reviewed. meeting with care team to seek the replacement as early as possible Qualifiers: Encounter type: subsequent encounter Fracture type: closed
[2017-04-06] MEDS: ATORVASTATIN 10 MG TABLET PO SCH (20:46)
[2017-04-06] MEDS: GABAPENTIN 100 MG CAPSULE PO SCH (20:47)
[2017-04-06] MEDS: SERTRALINE 50 MG TABLET PO SCH (20:49)
[2017-04-06] MEDS: INSULIN GLARGINE 300 UNIT/3 ML PEN SUBQ SCH (21:10)
[2017-04-07] MEDS: HYDROcod/ACETAM 10 MG/325 MG TABLET PO PRN ×4 (08:02→22:26)
[2017-04-07] MEDS: POLYETHYLENE GLYCOL 3350 17 GM PACKET PO SCH (08:02)
[2017-04-07] MEDS: ENOXAPARIN 40 MG/0.4 ML SYRINGE SUBQ SCH (08:02)
[2017-04-07] MEDS: DOCUSATE SODIUM 250 MG CAPSULE PO SCH (08:03)
[2017-04-07] MEDS: ASPIRIN EC 81 MG TABLET PO SCH (08:03)
[2017-04-07] MEDS: SENNA 8.6 MG TABLET PO SCH (08:03)
[2017-04-07] MEDS: FENOFIBRATE 48 MG TABLET PO SCH (08:03)
[2017-04-07] MEDS: AMIODARONE 200 MG TABLET PO SCH (08:03)
[2017-04-07] MEDS: FUROSEMIDE 40 MG TABLET PO SCH ×2 (08:03→14:02)
[2017-04-07] MEDS: OMEGA-3 ACID ETHYL ESTERS 1 GM CAPSULE PO SCH ×2 (08:03→21:05)
[2017-04-07] MEDS: LISINOPRIL 5 MG TABLET PO SCH (08:03)
[2017-04-07] MEDS: INSULIN ASPART 300 UNIT/3 ML PEN SUBQ SCH ×7 (08:04→21:02)
[2017-04-07] MEDS: MUPIROCIN 2% OINT 22 GM TUBE TOP SCH ×2 (08:07→21:03)
[2017-04-07] MEDS: NYSTATIN POWDER 15 GM TOP SCH ×2 (08:07→21:03)
[2017-04-07] MEDS: NYSTATIN CREAM 15 GM TUBE TOP SCH ×2 (08:07→21:03)
[2017-04-07] MEDS: MULTIVITAMIN TABLET PO SCH (08:12)
--- NOTE | 2017-04-07 12:44 | PROVIDER PROGRESS NOTE ---
Subjective - Prog Note Date Prog Note Date: 04/07/17 Prog Note Time: 12:41 - Subjective Pt reports feeling: No change Objective - Vital Signs/Intake & Output Vital Signs: Vital Signs x48h Temp Pulse Resp BP Pulse Ox 04/07/17 09:17 36.8 C 82 18 116/75 97 Intake & Output: Intake & Output 04/04/17 04/05/17 04/06/17 04/07/17 23:59 23:59 23:59 23:59 Intake Total 2642 2470 3110 800 Output Total 6375 5800 5765 1550 Balance -3733 -3330 -2655 -750 - Objective General Appearance: positive: No acute distress, Alert Eyes Bilateral: positive: Normal inspection, PERRL ENT: positive: ENT inspection nml, No signs of dehydration Neck: positive: Nml inspection, Trachea midline Respiratory: positive: Chest non-tender, No respiratory distress, Breath sounds nml Cardiovascular: positive: Regular rate & rhythm, No murmur Peripheral Pulses: 2+ Radial (R), 2+ Radial (L), 2+ Dorsalis pedis (R), 2+ Dorsalis pedis (L) Abdomen: positive: Non-tender, Nml bowel sounds Back: positive: Nml inspection Skin: positive: Color nml, Warm Extremities: positive: Non-tender, Full ROM Neurologic/Psychiatric: positive: Oriented x3, Motor nml, Sensation nml - Lab Results Fish Bones: 03/31/17 05:11 03/31/17 05:11 Other Labs: Lab Results x24hrs 04/07/17 04/07/17 04/06/17 Range/Units 11:13 07:46 20:58 POC Whole Bld Glucose 229 H 257 H 172 H (70 - 100) mg/dL Assessment/Plan - Problem List (1) Fracture of distal end of tibia Impression: pt's vital and lab test reviewed. Pt is stable. Following yesterday meeting, seek replacement Qualifiers: Encounter type: subsequent encounter Fracture type: closed
[2017-04-07] MEDS: INSULIN GLARGINE 300 UNIT/3 ML PEN SUBQ SCH (21:01)
[2017-04-07] MEDS: GABAPENTIN 100 MG CAPSULE PO SCH (21:04)
[2017-04-07] MEDS: ATORVASTATIN 10 MG TABLET PO SCH (21:04)
[2017-04-07] MEDS: SERTRALINE 50 MG TABLET PO SCH (21:05)
[2017-04-08] MEDS: POLYETHYLENE GLYCOL 3350 17 GM PACKET PO SCH (08:28)
[2017-04-08] MEDS: MUPIROCIN 2% OINT 22 GM TUBE TOP SCH ×2 (08:29→20:59)
[2017-04-08] MEDS: ENOXAPARIN 40 MG/0.4 ML SYRINGE SUBQ SCH (08:29)
[2017-04-08] MEDS: FUROSEMIDE 40 MG TABLET PO SCH ×2 (08:29→13:39)
[2017-04-08] MEDS: NYSTATIN CREAM 15 GM TUBE TOP SCH ×2 (08:29→20:59)
[2017-04-08] MEDS: NYSTATIN POWDER 15 GM TOP SCH ×2 (08:29→21:00)
[2017-04-08] MEDS: SENNA 8.6 MG TABLET PO SCH (08:30)
[2017-04-08] MEDS: HYDROcod/ACETAM 10 MG/325 MG TABLET PO PRN ×3 (08:30→21:09)
[2017-04-08] MEDS: FENOFIBRATE 48 MG TABLET PO SCH (08:30)
[2017-04-08] MEDS: ASPIRIN EC 81 MG TABLET PO SCH (08:30)
[2017-04-08] MEDS: DOCUSATE SODIUM 250 MG CAPSULE PO SCH (08:30)
[2017-04-08] MEDS: AMIODARONE 200 MG TABLET PO SCH (08:30)
[2017-04-08] MEDS: OMEGA-3 ACID ETHYL ESTERS 1 GM CAPSULE PO SCH ×2 (08:30→20:58)
[2017-04-08] MEDS: INSULIN ASPART 300 UNIT/3 ML PEN SUBQ SCH ×7 (08:31→21:01)
[2017-04-08] MEDS: LISINOPRIL 5 MG TABLET PO SCH (08:31)
[2017-04-08] MEDS: MULTIVITAMIN TABLET PO SCH (08:31)
--- NOTE | 2017-04-08 11:11 | PROVIDER PROGRESS NOTE ---
Subjective - Prog Note Date Prog Note Date: 04/08/17 Prog Note Time: 11:10 - Subjective Pt reports feeling: No change Objective - Vital Signs/Intake & Output Vital Signs: Vital Signs x48h Temp Pulse Resp BP Pulse Ox 04/08/17 07:30 36.5 C 81 20 108/70 98 Intake & Output: Intake & Output 04/05/17 04/06/17 04/07/17 04/08/17 23:59 23:59 23:59 23:59 Intake Total 2470 3110 4120 1180 Output Total 5800 5731 6200 1700 Balance -3330 -2655 -2080 -520 - Objective General Appearance: positive: No acute distress, Alert Eyes Bilateral: positive: Normal inspection, PERRL ENT: positive: ENT inspection nml, No signs of dehydration Neck: positive: Nml inspection, Trachea midline Respiratory: positive: Chest non-tender, No respiratory distress, Breath sounds nml Cardiovascular: positive: Regular rate & rhythm, No murmur Peripheral Pulses: 2+ Radial (R), 2+ Radial (L), 2+ Dorsalis pedis (R), 2+ Dorsalis pedis (L) Abdomen: positive: Non-tender, Nml bowel sounds Back: positive: Nml inspection Skin: positive: Color nml, Warm Extremities: positive: Non-tender, Nml appearance Neurologic/Psychiatric: positive: Oriented x3, CN's nml (2-12), Motor nml, Sensation nml - Lab Results Fish Bones: 03/31/17 05:11 03/31/17 05:11 Other Labs: Lab Results x24hrs 04/08/17 04/07/17 04/07/17 Range/Units 07:28 20:27 16:35 POC Whole Bld Glucose 277 H 229 H 142 H (70 - 100) mg/dL 04/07/17 Range/Units 11:13 POC Whole Bld Glucose 229 H (70 - 100) mg/dL Assessment/Plan - Problem List (1) Fracture of distal end of tibia Impression: vital and lab reviewed, wait for replacement Qualifiers: Encounter type: subsequent encounter Fracture type: closed
[2017-04-08] MEDS: ATORVASTATIN 10 MG TABLET PO SCH (20:58)
[2017-04-08] MEDS: GABAPENTIN 100 MG CAPSULE PO SCH (20:59)
[2017-04-08] MEDS: SERTRALINE 50 MG TABLET PO SCH (20:59)
[2017-04-08] MEDS: INSULIN GLARGINE 300 UNIT/3 ML PEN SUBQ SCH (21:00)
[2017-04-09] MEDS: HYDROcod/ACETAM 10 MG/325 MG TABLET PO PRN ×4 (01:09→21:00)
--- NOTE | 2017-04-09 07:57 | PROVIDER PROGRESS NOTE ---
Subjective - Prog Note Date Prog Note Date: 04/09/17 Prog Note Time: 07:55 - Subjective Pt reports feeling: No change (pt report he is doing fine) Objective - Vital Signs/Intake & Output Intake & Output: Intake & Output 04/06/17 04/07/17 04/08/17 04/09/17 23:59 23:59 23:59 23:59 Intake Total 3110 4120 2860 550 Output Total 5701 5040 3277 2950 Balance -4611 -6490 -0620 -2400 - Objective General Appearance: positive: No acute distress, Alert Eyes Bilateral: positive: Normal inspection, PERRL ENT: positive: ENT inspection nml, No signs of dehydration Neck: positive: Nml inspection, Trachea midline Respiratory: positive: Chest non-tender, No respiratory distress, Breath sounds nml Cardiovascular: positive: Regular rate & rhythm, No murmur Peripheral Pulses: 2+ Radial (R), 2+ Radial (L), 2+ Dorsalis pedis (R), 2+ Dorsalis pedis (L) Abdomen: positive: Non-tender, Nml bowel sounds Skin: positive: Color nml, Warm Extremities: positive: Non-tender Neurologic/Psychiatric: positive: Oriented x3, CN's nml (2-12), Sensation nml - Lab Results Fish Bones: 03/31/17 05:11 03/31/17 05:11 Other Labs: Lab Results x24hrs 04/09/17 04/08/17 04/08/17 Range/Units 07:28 20:37 16:37 POC Whole Bld Glucose 242 H 245 H 357 H (70 - 100) mg/dL 04/08/17 04/08/17 Range/Units 16:31 11:15 POC Whole Bld Glucose 358 H 249 H (70 - 100) mg/dL Assessment/Plan - Problem List (1) Fracture of distal end of tibia Impression: vital and lab reviewed. non issue reported. Plan: find replacement Qualifiers: Encounter type: subsequent encounter Fracture type: closed
[2017-04-09] MEDS: LISINOPRIL 5 MG TABLET PO SCH (08:10)
[2017-04-09] MEDS: FUROSEMIDE 40 MG TABLET PO SCH ×2 (08:10→14:14)
[2017-04-09] MEDS: POLYETHYLENE GLYCOL 3350 17 GM PACKET PO SCH (08:10)
[2017-04-09] MEDS: ENOXAPARIN 40 MG/0.4 ML SYRINGE SUBQ SCH (08:10)
[2017-04-09] MEDS: MULTIVITAMIN TABLET PO SCH (08:11)
[2017-04-09] MEDS: ASPIRIN EC 81 MG TABLET PO SCH (08:11)
[2017-04-09] MEDS: OMEGA-3 ACID ETHYL ESTERS 1 GM CAPSULE PO SCH ×2 (08:11→21:01)
[2017-04-09] MEDS: AMIODARONE 200 MG TABLET PO SCH (08:11)
[2017-04-09] MEDS: DOCUSATE SODIUM 250 MG CAPSULE PO SCH (08:11)
[2017-04-09] MEDS: FENOFIBRATE 48 MG TABLET PO SCH (08:11)
[2017-04-09] MEDS: INSULIN ASPART 300 UNIT/3 ML PEN SUBQ SCH ×7 (08:15→21:05)
[2017-04-09] MEDS: NYSTATIN CREAM 15 GM TUBE TOP SCH ×2 (08:20→21:04)
[2017-04-09] MEDS: SENNA 8.6 MG TABLET PO SCH (08:20)
[2017-04-09] MEDS: MUPIROCIN 2% OINT 22 GM TUBE TOP SCH ×2 (08:20→21:04)
[2017-04-09] MEDS: NYSTATIN POWDER 15 GM TOP SCH ×2 (08:20→21:04)
[2017-04-09] MEDS: GABAPENTIN 100 MG CAPSULE PO SCH (21:00)
[2017-04-09] MEDS: ATORVASTATIN 10 MG TABLET PO SCH (21:00)
[2017-04-09] MEDS: SERTRALINE 50 MG TABLET PO SCH (21:01)
[2017-04-09] MEDS: INSULIN GLARGINE 300 UNIT/3 ML PEN SUBQ SCH (21:05)
[2017-04-10] MEDS: HYDROcod/ACETAM 10 MG/325 MG TABLET PO PRN ×4 (04:21→21:40)
[2017-04-10 05:56] LABS: BASOPHILS # (AUTO) 0.1 10^3/uL (0.0-0.1); EOSINOPHILS # (AUTO) 0.6 10^3/uL (0.0-0.7); EOSINOPHILS % (AUTO) 7.8 %; HCT - HEMATOCRIT 41.5 % (42.0-52.0); HGB - HEMOGLOBIN 13.9 g/dL (14.0-18.0); LYMPHOCYTES # (AUTO) 2.4 10^3/uL (1.5-3.5); LYMPHOCYTES % (AUTO) 32.6 %; MEAN CORPUSCULAR HEMOGLOBIN 29.1 pg (27.0-31.0); MEAN CORPUSCULAR HGB CONC 33.6 g/dL (32.0-36.0); MEAN CORPUSCULAR VOLUME 86.6 fL (80.0-94.0); MEAN PLATELET VOLUME 7.6 fL (7.4-11.4); MONOCYTES # (AUTO) 0.6 10^3/uL (0.0-1.0); NEUTROPHILS # (AUTO) 3.8 10^3/uL (1.5-6.6); NEUTROPHILS % (AUTO) 50.6 %; NUCLEATED RED BLOOD CELLS AUTO 0.1 /100WBC; RED BLOOD COUNT 4.79 10^6/uL (4.70-6.10); RED CELL DISTRIBUTION WIDTH 13.5 % (12.0-15.0); UNCORRECTED WHITE BLOOD COUNT 7.5 x10^3/uL; WHITE BLOOD COUNT 7.5 x10^3/uL (4.8-10.8)
[2017-04-10 06:03] LABS: ALBUMIN/GLOBULIN RATIO 1.2 (1.0-2.2); BILIRUBIN,TOTAL 0.4 mg/dL (0.2-1.0); CALCIUM 9.5 mg/dL (8.5-10.3); CREATININE 1.1 mg/dL (0.6-1.2); POTASSIUM 3.9 mmol/L (3.5-5.0); TOTAL PROTEIN 6.5 g/dL (6.7-8.2)
[2017-04-10] MEDS: INSULIN ASPART 300 UNIT/3 ML PEN SUBQ SCH ×7 (08:56→21:41)
[2017-04-10] MEDS: POLYETHYLENE GLYCOL 3350 17 GM PACKET PO SCH (09:18)
[2017-04-10] MEDS: OMEGA-3 ACID ETHYL ESTERS 1 GM CAPSULE PO SCH ×2 (09:19→21:40)
[2017-04-10] MEDS: ASPIRIN EC 81 MG TABLET PO SCH (09:20)
[2017-04-10] MEDS: SENNA 8.6 MG TABLET PO SCH (09:20)
[2017-04-10] MEDS: FUROSEMIDE 40 MG TABLET PO SCH ×2 (09:20→14:30)
[2017-04-10] MEDS: ENOXAPARIN 40 MG/0.4 ML SYRINGE SUBQ SCH (09:20)
[2017-04-10] MEDS: AMIODARONE 200 MG TABLET PO SCH (09:20)
[2017-04-10] MEDS: FENOFIBRATE 48 MG TABLET PO SCH (09:20)
[2017-04-10] MEDS: DOCUSATE SODIUM 250 MG CAPSULE PO SCH (09:20)
[2017-04-10] MEDS: LISINOPRIL 5 MG TABLET PO SCH (09:20)
[2017-04-10] MEDS: MULTIVITAMIN TABLET PO SCH (09:24)
[2017-04-10] MEDS: MUPIROCIN 2% OINT 22 GM TUBE TOP SCH ×2 (10:15→21:42)
[2017-04-10] MEDS: NYSTATIN POWDER 15 GM TOP SCH ×2 (10:15→21:43)
[2017-04-10] MEDS: NYSTATIN CREAM 15 GM TUBE TOP SCH ×2 (10:15→21:42)
--- NOTE | 2017-04-10 11:50 | PROVIDER PROGRESS NOTE ---
Subjective - Prog Note Date Prog Note Date: 04/10/17 Prog Note Time: 11:47 - Subjective Pt reports feeling: No change Objective - Vital Signs/Intake & Output Vital Signs: Vital Signs x48h Temp Pulse Resp BP Pulse Ox 04/10/17 08:16 36.8 C 73 16 116/71 96 Intake & Output: Intake & Output 04/07/17 04/08/17 04/09/17 04/10/17 23:59 23:59 23:59 23:59 Intake Total 4120 2860 4230 806 Output Total 6200 6871 8650 1400 Balance -2080 -3990 -4420 -594 - Objective General Appearance: positive: No acute distress, Alert Eyes Bilateral: positive: Normal inspection, PERRL ENT: positive: ENT inspection nml, No signs of dehydration Neck: positive: Nml inspection, Trachea midline Respiratory: positive: Chest non-tender, No respiratory distress, Breath sounds nml Cardiovascular: positive: Regular rate & rhythm, No murmur Peripheral Pulses: 2+ Radial (R), 2+ Radial (L), 2+ Dorsalis pedis (R), 2+ Dorsalis pedis (L) Abdomen: positive: Non-tender, Nml bowel sounds Back: positive: Nml inspection Skin: positive: Color nml, Warm Extremities: positive: Non-tender, Full ROM Neurologic/Psychiatric: positive: Oriented x3, CN's nml (2-12), Motor nml, Sensation nml - Lab Results Fish Bones: 04/10/17 05:15 04/10/17 05:15 Other Labs: Lab Results x24hrs 04/10/17 04/10/17 04/10/17 Range/Units 11:42 07:32 05:15 WBC (4.8-10.8) x10^3/uL RBC (4.70-6.10) 10^6/uL Hgb (14.0-18.0) g/dL Hct (42.0-52.0) % MCV (80.0-94.0) fL MCH (27.0-31.0) pg MCHC (32.0-36.0) g/dL RDW (12.0-15.0) % Plt Count (130-450) 10^3/uL MPV (7.4-11.4) fL Neut # (1.5-6.6) 10^3/uL Lymph # (1.5-3.5) 10^3/uL [place] # (0.0-1.0) 10^3/uL Eos # (0.0-0.7) 10^3/uL Baso # (0.0-0.1) 10^3/uL Absolute Nucleated RBC x10^3/uL Nucleated RBCs /100WBC Sodium 136 (135-145) mmol/L Potassium 3.9 (3.5-5.0) mmol/L Chloride 94 L (101-111) mmol/L Carbon Dioxide 33 H (21-32) mmol/L Anion Gap 9.0 (6-13) BUN 22 H (6-20) mg/dL Creatinine 1.1 (0.6-1.2) mg/dL Estimated GFR (MDRD) 69 L (>89) Glucose 228 H (70-100) mg/dL POC Whole Bld Glucose 253 H 248 H (70 - 100) mg/dL Calcium 9.5 (8.5-10.3) mg/dL Total Bilirubin 0.4 (0.2-1.0) mg/dL AST 20 (10-42) IU/L ALT 18 (10-60) IU/L Alkaline Phosphatase 59 (42-121) IU/L Total Protein 6.5 L (6.7-8.2) g/dL Albumin 3.5 (3.2-5.5) g/dL Globulin 3.0 (2.1-4.2) g/dL Albumin/Globulin Ratio 1.2 (1.0-2.2) 04/10/17 04/09/17 04/09/17 Range/Units 05:15 20:35 16:31 WBC 7.5 (4.8-10.8) x10^3/uL RBC 4.79 (4.70-6.10) 10^6/uL Hgb 13.9 L (14.0-18.0) g/dL Hct 41.5 L (42.0-52.0) % MCV 86.6 (80.0-94.0) fL MCH 29.1 (27.0-31.0) pg MCHC 33.6 (32.0-36.0) g/dL RDW 13.5 (12.0-15.0) % Plt Count 233 (130-450) 10^3/uL MPV 7.6 (7.4-11.4) fL Neut # 3.8 (1.5-6.6) 10^3/uL Lymph # 2.4 (1.5-3.5) 10^3/uL [place] # 0.6 (0.0-1.0) 10^3/uL Eos # 0.6 (0.0-0.7) 10^3/uL Baso # 0.1 (0.0-0.1) 10^3/uL Absolute Nucleated RBC 0.01 x10^3/uL Nucleated RBCs 0.1 /100WBC Sodium (135-145) mmol/L Potassium (3.5-5.0) mmol/L Chloride (101-111) mmol/L Carbon Dioxide (21-32) mmol/L Anion Gap (6-13) BUN (6-20) mg/dL Creatinine (0.6-1.2) mg/dL Estimated GFR (MDRD) (>89) Glucose (70-100) mg/dL POC Whole Bld Glucose 153 H 206 H (70 - 100) mg/dL Calcium (8.5-10.3) mg/dL Total Bilirubin (0.2-1.0) mg/dL AST (10-42) IU/L ALT (10-60) IU/L Alkaline Phosphatase (42-121) IU/L Total Protein (6.7-8.2) g/dL Albumin (3.2-5.5) g/dL Globulin (2.1-4.2) g/dL Albumin/Globulin Ratio (1.0-2.2) Assessment/Plan - Problem List (1) Fracture of distal end of tibia Impression: pt's vital and lab test reviewed. 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 Pt did not have any complaints. Plan: wait for replacement Qualifiers: Encounter type: subsequent encounter Fracture type: closed
[2017-04-10] MEDS: SERTRALINE 50 MG TABLET PO SCH (21:39)
[2017-04-10] MEDS: GABAPENTIN 100 MG CAPSULE PO SCH (21:40)
[2017-04-10] MEDS: ATORVASTATIN 10 MG TABLET PO SCH (21:41)
[2017-04-10] MEDS: INSULIN GLARGINE 300 UNIT/3 ML PEN SUBQ SCH (21:42)
[2017-04-11] MEDS: HYDROcod/ACETAM 10 MG/325 MG TABLET PO PRN ×4 (07:57→22:14)
[2017-04-11] MEDS: INSULIN ASPART 300 UNIT/3 ML PEN SUBQ SCH ×7 (07:59→22:22)
[2017-04-11] MEDS: OMEGA-3 ACID ETHYL ESTERS 1 GM CAPSULE PO SCH ×2 (08:00→22:18)
[2017-04-11] MEDS: FUROSEMIDE 40 MG TABLET PO SCH ×2 (08:00→14:40)
[2017-04-11] MEDS: POLYETHYLENE GLYCOL 3350 17 GM PACKET PO SCH (08:00)
[2017-04-11] MEDS: AMIODARONE 200 MG TABLET PO SCH (08:00)
[2017-04-11] MEDS: FENOFIBRATE 48 MG TABLET PO SCH (08:00)
[2017-04-11] MEDS: MULTIVITAMIN TABLET PO SCH (08:01)
[2017-04-11] MEDS: ASPIRIN EC 81 MG TABLET PO SCH (08:01)
[2017-04-11] MEDS: LISINOPRIL 5 MG TABLET PO SCH (08:01)
[2017-04-11] MEDS: NYSTATIN CREAM 15 GM TUBE TOP SCH ×2 (08:01→22:28)
[2017-04-11] MEDS: MUPIROCIN 2% OINT 22 GM TUBE TOP SCH ×2 (08:01→22:25)
[2017-04-11] MEDS: ENOXAPARIN 40 MG/0.4 ML SYRINGE SUBQ SCH (08:01)
[2017-04-11] MEDS: DOCUSATE SODIUM 250 MG CAPSULE PO SCH (08:01)
[2017-04-11] MEDS: SENNA 8.6 MG TABLET PO SCH (08:01)
[2017-04-11] MEDS: NYSTATIN POWDER 15 GM TOP SCH ×2 (08:02→22:28)
--- NOTE | 2017-04-11 11:24 | PROVIDER PROGRESS NOTE ---
Subjective - General Admit Date: 03/16/17 - Review of Systems Wound/Incisions: positive: Healing well Musculoskeletal: positive: No symptoms Objective - Patient Data Reviewed Vital Signs: Yes Vital Signs: Vital Signs x48h Temp Pulse Resp BP Pulse Ox 04/11/17 07:49 36.7 C 82 16 116/75 97 Intake & Output: Intake and Output Totals x24h 04/09/17 04/10/17 04/11/17 23:59 23:59 23:59 Intake Total 4230 3552 1710 Output Total 8699 7050 2100 Balance -4420 -3498 -390 - Lab Results Lab Results: 04/10/17 05:15 04/10/17 05:15 Other Lab Results: Lab Results x24hrs 04/10/17 04/10/17 04/10/17 Range/Units 20:30 16:32 11:42 POC Whole Bld Glucose 152 H 123 H 253 H (70 - 100) mg/dL - Imaging Results Radiology Imaging: positive: EMP read indepedently - Current Medications Current Medications: Current Medications Generic Name Dose Route Start Last Admin Trade Name Freq PRN Reason Stop Dose Admin Acetaminophen/Hydrocodone Bitart 1 tab 03/18/17 15:46 03/28/17 20:42 [place] 10 Mg/325 Mg PO 2 tab Q4HR PRN Administration PAIN Acetaminophen/Hydrocodone Bitart 2 tab 03/18/17 15:46 04/11/17 07:57 [place] 10 Mg/325 Mg PO 2 tab Q4HR PRN Administration PAIN Amiodarone HCl 200 mg 03/31/17 09:00 04/11/17 08:00 Pacerone PO 200 mg DAILY ARDEN Administration Aspirin 81 mg 03/21/17 09:00 04/11/17 08:01 Ecotrin PO 81 mg DAILY ARDEN Administration Atorvastatin Calcium 10 mg 03/15/17 21:00 04/10/17 21:41 Lipitor PO 10 mg QPM ARDEN Administration Baclofen 10 mg 03/15/17 16:40 03/30/17 21:16 Lioresal PO 10 mg TID PRN Administration Cramp Docusate Sodium 250 - 500 mg 03/17/17 09:00 04/11/17 08:01 Colace 250mg Capsule PO 250 mg DAILY ARDEN Administration Enoxaparin Sodium 40 mg 03/17/17 09:00 04/11/17 08:01 Lovenox SUBQ 40 mg DAILY ARDEN Administration Fenofibrate 144 mg 03/16/17 09:00 04/11/17 08:00 Tricor PO 144 mg DAILY ARDEN Administration Furosemide 80 mg 03/16/17 09:00 04/11/17 08:00 Lasix PO 80 mg DAILY ARDEN Administration Furosemide 40 mg 03/28/17 16:00 04/10/17 14:30 Lasix PO 40 mg DAILY@1400 ARDEN Administration Gabapentin 200 mg 03/15/17 21:00 04/10/17 21:40 Neurontin PO 200 mg QPM ARDEN Administration Insulin Aspart 40 unit 03/15/17 17:00 04/11/17 07:59 Novolog SUBQ 40 unit TIDWM ARDEN Administration Insulin Aspart 3 - 11 unit 03/30/17 12:00 04/11/17 07:59 Novolog SUBQ 7 unit 0800,1200,1700,2100 ARDEN Administration Protocol Insulin Glargine 80 unit 04/01/17 21:00 04/10/17 21:42 Lantus Solostar SUBQ 80 unit QPM ARDEN Administration Lisinopril 2.5 mg 04/03/17 09:00 04/11/17 08:01 Zestril PO 2.5 mg DAILY ARDEN Administration Multivitamins 1 tab 03/16/17 08:00 04/11/17 08:01 Theragran PO 1 tab DAILYWM ARDEN Administration Mupirocin 1 applic 03/21/17 21:00 04/11/17 08:01 Bactroban 2% Oint TOP 1 applic BID ARDEN Administration Nystatin 1 applic 03/19/17 14:00 04/11/17 08:01 Mycostatin Cream TOP 1 applic BID ARDEN Administration Nystatin 1 applic 03/19/17 14:00 04/11/17 08:02 Nystop TOP 1 applic BID AREDN Administration Meutf-3-[id number] Ethyl Esters 2 gm 03/15/17 21:00 04/11/17 08:00 Lovaza PO 2 gm BID ARDEN Administration Polyethylene Glycol 17 gm 03/17/17 09:00 04/11/17 08:00 Miralax PO 17 gm DAILY ARDEN Administration Senna 8.6 - 17.2 mg 03/17/17 09:00 04/11/17 08:01 Senokot PO 8.6 mg DAILY ARDEN Administration Sertraline HCl 300 mg 03/15/17 21:00 04/10/17 21:39 Zoloft PO 300 mg QPM ARDEN Administration - Physical Exam General Appearance: positive: No acute distress Neurologic/Psychiatric: positive: Other (no warmth at right ankle. slight discomfort with firm ankle pressure. No crepitus) Impression/Plan - Problem List Problem List: Ortho: The patient is gradually healing the right distal tibia fracture. There is slight widening of the fracture gap but it appears to be healing with early callus. He is not ready for any weight bearing, and I don't think the boot should be used at all. Casting is not really a viable option with this patient's leg size, and the ulcer.
--- NOTE | 2017-04-11 17:05 | PROVIDER PROGRESS NOTE ---
Subjective - Prog Note Date Prog Note Date: 04/11/17 Prog Note Time: 17:03 - Subjective Pt reports feeling: Improved [facility] agreeable to Leung removal) Current Medications - Current Medications Current Medications: Active Medications Generic Name Dose Route Start Last Admin Trade Name Freq PRN Reason Stop Dose Admin Acetaminophen/Hydrocodone Bitart 1 tab 03/18/17 15:46 03/28/17 20:42 [place] 10 Mg/325 Mg PO 2 tab Q4HR PRN Administration PAIN Acetaminophen/Hydrocodone Bitart 2 tab 03/18/17 15:46 04/11/17 12:48 [place] 10 Mg/325 Mg PO 2 tab Q4HR PRN Administration PAIN Amiodarone HCl 200 mg 03/31/17 09:00 04/11/17 08:00 Pacerone PO 200 mg DAILY ARDEN Administration Aspirin 81 mg 03/21/17 09:00 04/11/17 08:01 Ecotrin PO 81 mg DAILY ARDEN Administration Atorvastatin Calcium 10 mg 03/15/17 21:00 04/10/17 21:41 Lipitor PO 10 mg QPM ARDEN Administration Baclofen 10 mg 03/15/17 16:40 03/30/17 21:16 Lioresal PO 10 mg TID PRN Administration Cramp Docusate Sodium 250 - 500 mg 03/17/17 09:00 04/11/17 08:01 Colace 250mg Capsule PO 250 mg DAILY ARDEN Administration Enoxaparin Sodium 40 mg 03/17/17 09:00 04/11/17 08:01 Lovenox SUBQ 40 mg DAILY ARDEN Administration Fenofibrate 144 mg 03/16/17 09:00 04/11/17 08:00 Tricor PO 144 mg DAILY ARDEN Administration Furosemide 80 mg 03/16/17 09:00 04/11/17 08:00 Lasix PO 80 mg DAILY ARDEN Administration Furosemide 40 mg 03/28/17 16:00 04/11/17 14:40 Lasix PO 40 mg DAILY@1400 ARDEN Administration Gabapentin 200 mg 03/15/17 21:00 04/10/17 21:40 Neurontin PO 200 mg QPM ARDEN Administration Insulin Aspart 40 unit 03/15/17 17:00 04/11/17 11:53 Novolog SUBQ 40 unit TIDWM ARDEN Administration Insulin Aspart 3 - 11 unit 03/30/17 12:00 04/11/17 11:54 Novolog SUBQ 7 unit 0800,1200,1700,2100 ARDEN Administration Protocol Insulin Glargine 80 unit 04/01/17 21:00 04/10/17 21:42 Lantus Solostar SUBQ 80 unit QPM ARDEN Administration Lisinopril 2.5 mg 04/03/17 09:00 04/11/17 08:01 Zestril PO 2.5 mg DAILY ARDEN Administration Multivitamins 1 tab 03/16/17 08:00 04/11/17 08:01 Theragran PO 1 tab DAILYWM ARDEN Administration Mupirocin 1 applic 03/21/17 21:00 04/11/17 08:01 Bactroban 2% Oint TOP 1 applic BID ARDEN Administration Nystatin 1 applic 03/19/17 14:00 04/11/17 08:01 Mycostatin Cream TOP 1 applic BID ARDEN Administration Nystatin 1 applic 03/19/17 14:00 04/11/17 08:02 Nystop TOP 1 applic BID ARDEN Administration [id number] Ethyl Esters 2 gm 03/15/17 21:00 04/11/17 08:00 Lovaza PO 2 gm BID ARDEN Administration Polyethylene Glycol 17 gm 03/17/17 09:00 04/11/17 08:00 Miralax PO 17 gm DAILY ARDEN Administration Senna 8.6 - 17.2 mg 03/17/17 09:00 04/11/17 08:01 Senokot PO 8.6 mg DAILY ARDEN Administration Sertraline HCl 300 mg 03/15/17 21:00 04/10/17 21:39 Zoloft PO 300 mg QPM ARDEN Administration Insulin Glargine,Hum.rec.anlog [Lantus Solostar] 76 unit SQ QPM 03/20/13 Lisinopril 10 mg PO BID 03/20/13 Lovastatin 40 mg PO QPM 03/20/13 Multivitamin [Multivitamins] 1 each PO DAILY 03/20/13 metFORMIN [Glucophage] 1,000 mg PO BIDWM 03/20/13 Fenofibrate 160 mg PO DAILY 06/10/14 Aspirin 81 mg PO DAILY 10/04/16 HYDROcodone/ACET 10/325 [[place] 10 mg/325 mg] 1 tab PO QID 10/04/16 Insulin Aspart [Novolog Flexpen] 40 unit SUBQ TIDWM 10/04/16 Furosemide [Lasix] 80 mg PO DAILY 03/11/17 Gabapentin 100 - 200 mg PO QPM 03/11/17 Icosapent Ethyl [Vascepa] 2 gm PO BID 03/12/17 Sertraline HCl [Zoloft] 300 mg PO QPM 03/12/17 Objective - Vital Signs/Intake & Output Reviewed Vital Signs: Yes Intake & Output: Intake & Output 04/08/17 04/09/17 04/10/17 04/11/17 23:59 23:59 23:59 23:59 Intake Total 2860 4230 3552 2570 Output Total 6868 8605 7050 44 Balance -0768 -9014 -5918 -5975 - Objective General Appearance: positive: No acute distress, Other (sitting in bed using computer, somewhat flat affect as is his usual, shrugs his shoulders when asked how things are (I saw him last 04/03) Eyes Bilateral: positive: EOMI Respiratory: positive: No respiratory distress, Breath sounds nml Cardiovascular: positive: Regular rate & rhythm ((hx afib, but at HR 80, it sounds regular on exam)), No murmur Abdomen: positive: Nml bowel sounds, No distention, Other (obese, Leung out,). 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 soon per case management 04/11; Re fracturePer Dr Garcia today The patient is gradually healing the right distal tibia fracture. There is slight widening of the fracture gap but it appears to be healing with early callus. He is not ready for any weight bearing, and I don't think the boot should be used at all. Casting is not really a viable option with this patient's leg size, and the ulcer. (PT had asked ~ 10 days ago when could be weight bearing; he had advised tib/ fib films ~ 1st wk of April which would have been 4 wks from initial films, but these were already done on 04/04 2) Atrial fibrillation w/ Hx of RVR February 2017 [facility] admission afib RVR/ >>> reverted to NSR, this admit : atrial flutter rate controlled on 200 mg daily AMiodarone 70's, 80's On amiodarone RE: stroke prevention; no anticoagulation bc of prev brain hemorrhage Hypercapnia/ metabolic alkalosis Impression: chronic; stable , no sedation r/t obesity hypoventilation; no indication to recheck BMP no change 03/30 compensation for resp acidosis carbon dioxide peaked at 40. At 35 yesterday obesity hypoventilation or PAUL stable (5) Diabetes type 2, uncontrolled Impression: Had had glucoses ~ 200 when I last saw him last week 300's this weekend when a friend brought him a big bag of pretzels much better again continues on lantus 80, and 40 prandial novolog 17 additional units (6) HTN (hypertension), benign Impression: BP stable low 100's had been on lisinopril 20 and diltiazem in past (dilt was for rate control ) now on amiodarone but BP was only low 100's reduced the lisinopril to 2.5 mg for renal protection and leaving at that dose 7AKI (acute kidney injury) Impression: 04/11; have had no indication to recheck present on admission resolved last 1.1 on 03/31; no indication to recheck currently . Constipation: resolved, ( continue daily miralax [facility] acquired pneumonia HCAP (associated with trach, in and out of hospital) s/p 10 days of zosyn and levaquin blood C&S neg. will stop the florastor R upper molar dental caries 04/11; no further complaints needs to see dentist at some point after done SNF 04/02 start with warm salt water rinses after meals and bedtime for now if any worsening or swelling, will start augmentin dentist after d/c (doubt there is any way to get a patient pending placement to get a dental appt but will ask in d/c planning rounds in am)
[2017-04-11] MEDS: INSULIN GLARGINE 300 UNIT/3 ML PEN SUBQ SCH (22:11)
[2017-04-11] MEDS: SERTRALINE 50 MG TABLET PO SCH (22:14)
[2017-04-11] MEDS: GABAPENTIN 100 MG CAPSULE PO SCH (22:17)
[2017-04-11] MEDS: ATORVASTATIN 10 MG TABLET PO SCH (22:21)
[2017-04-12] MEDS: HYDROcod/ACETAM 10 MG/325 MG TABLET PO PRN ×4 (02:23→20:24)
[2017-04-12] MEDS: INSULIN ASPART 300 UNIT/3 ML PEN SUBQ SCH ×7 (08:16→20:33)
[2017-04-12] MEDS: SENNA 8.6 MG TABLET PO SCH (08:50)
[2017-04-12] MEDS: FUROSEMIDE 40 MG TABLET PO SCH ×2 (08:50→13:59)
[2017-04-12] MEDS: OMEGA-3 ACID ETHYL ESTERS 1 GM CAPSULE PO SCH ×2 (08:51→20:27)
[2017-04-12] MEDS: FENOFIBRATE 48 MG TABLET PO SCH (08:51)
[2017-04-12] MEDS: MULTIVITAMIN TABLET PO SCH (08:52)
[2017-04-12] MEDS: DOCUSATE SODIUM 250 MG CAPSULE PO SCH (08:52)
[2017-04-12] MEDS: LISINOPRIL 5 MG TABLET PO SCH (08:52)
[2017-04-12] MEDS: AMIODARONE 200 MG TABLET PO SCH (08:53)
[2017-04-12] MEDS: ASPIRIN EC 81 MG TABLET PO SCH (08:53)
[2017-04-12] MEDS: ENOXAPARIN 40 MG/0.4 ML SYRINGE SUBQ SCH (08:54)
[2017-04-12] MEDS: POLYETHYLENE GLYCOL 3350 17 GM PACKET PO SCH (08:55)
[2017-04-12] MEDS: NYSTATIN POWDER 15 GM TOP SCH ×2 (12:22→20:35)
[2017-04-12] MEDS: NYSTATIN CREAM 15 GM TUBE TOP SCH (12:22)
[2017-04-12] MEDS: MUPIROCIN 2% OINT 22 GM TUBE TOP SCH ×2 (12:22→20:34)
--- NOTE | 2017-04-12 15:23 | PROVIDER PROGRESS NOTE ---
Subjective - Prog Note Date Prog Note Date: 04/12/17 Prog Note Time: 14:26 - Subjective Subjective: Has not had trouble with urination since Leung out "had the BM of all BM's today after 4 days w/o; (he reports his norm is q 3 days ) voiding ~ q2-q2.5 hrs, per RN PVR yesterday was not significant Patient indicated Dr Garcia was in and considering casting Current Medications - Current Medications Current Medications: Active Medications Generic Name Dose Route Start Last Admin Trade Name Freq PRN Reason Stop Dose Admin Acetaminophen/Hydrocodone Bitart 1 tab 03/18/17 15:46 03/28/17 20:42 Hailey 10 Mg/325 Mg PO 2 tab Q4HR PRN Administration PAIN Acetaminophen/Hydrocodone Bitart 2 tab 03/18/17 15:46 04/12/17 12:27 Hailey 10 Mg/325 Mg PO 2 tab Q4HR PRN Administration PAIN Amiodarone HCl 200 mg 03/31/17 09:00 04/12/17 08:53 Pacerone PO 200 mg DAILY ARDEN Administration Aspirin 81 mg 03/21/17 09:00 04/12/17 08:53 Ecotrin PO 81 mg DAILY ARDEN Administration Atorvastatin Calcium 10 mg 03/15/17 21:00 04/11/17 22:21 Lipitor PO 10 mg QPM ARDEN Administration Baclofen 10 mg 03/15/17 16:40 03/30/17 21:16 Lioresal PO 10 mg TID PRN Administration Cramp Docusate Sodium 250 - 500 mg 03/17/17 09:00 04/12/17 08:52 Colace 250mg Capsule PO 250 mg DAILY ARDEN Administration Enoxaparin Sodium 40 mg 03/17/17 09:00 04/12/17 08:54 Lovenox SUBQ 40 mg DAILY ARDEN Administration Fenofibrate 144 mg 03/16/17 09:00 04/12/17 08:51 Tricor PO 144 mg DAILY ARDEN Administration Furosemide 80 mg 03/16/17 09:00 04/12/17 08:50 Lasix PO 80 mg DAILY ARDEN Administration Furosemide 40 mg 03/28/17 16:00 04/12/17 13:59 Lasix PO 40 mg DAILY@1400 ARDEN Administration Gabapentin 200 mg 03/15/17 21:00 04/11/17 22:17 Neurontin PO 200 mg QPM ARDEN Administration Insulin Aspart 40 unit 03/15/17 17:00 04/12/17 12:22 Novolog SUBQ 40 unit TIDWM ARDEN Administration Insulin Aspart 3 - 11 unit 03/30/17 12:00 04/12/17 12:22 Novolog SUBQ 5 unit 0800,1200,1700,2100 ARDEN Administration Protocol Insulin Glargine 80 unit 04/01/17 21:00 04/11/17 22:11 Lantus Solostar SUBQ 80 unit QPM ARDEN Administration Lisinopril 2.5 mg 04/03/17 09:00 04/12/17 08:52 Zestril PO 2.5 mg DAILY ARDEN Administration Metformin HCl 1,000 mg 04/12/17 20:00 Glucophage PO BIDWM [facility] Multivitamins 1 tab 03/16/17 08:00 04/12/17 08:52 Theragran PO 1 tab DAILYWM ARDEN Administration Mupirocin 1 applic 03/21/17 21:00 04/12/17 12:22 Bactroban 2% Oint TOP 1 applic BID ARDEN Administration Nystatin 1 applic 03/19/17 14:00 04/12/17 12:22 Nystop TOP 1 applic BID ARDEN Administration [id number] Ethyl Esters 2 gm 03/15/17 21:00 04/12/17 08:51 Lovaza PO 2 gm BID ARDEN Administration Polyethylene Glycol 17 gm 03/17/17 09:00 04/12/17 08:55 Miralax PO 17 gm DAILY ARDEN Administration Senna 8.6 - 17.2 mg 03/17/17 09:00 04/12/17 08:50 Senokot PO 8.6 mg DAILY ARDEN Administration Sertraline HCl 300 mg 03/15/17 21:00 04/11/17 22:14 Zoloft PO 300 mg QPM ARDEN Administration Insulin Glargine,Hum.rec.anlog [Lantus Solostar] 76 unit SQ QPM 03/20/13 Lisinopril 10 mg PO BID 03/20/13 Lovastatin 40 mg PO QPM 03/20/13 Multivitamin [Multivitamins] 1 each PO DAILY 03/20/13 metFORMIN [Glucophage] 1,000 mg PO BIDWM 03/20/13 Fenofibrate 160 mg PO DAILY 08/26/14 Aspirin 81 mg PO DAILY 10/04/16 HYDROcodone/ACET 10/325 [Hailey 10 mg/325 mg] 1 tab PO QID 10/04/16 Insulin Aspart [Novolog Flexpen] 40 unit SUBQ TIDWM 10/04/16 Furosemide [Lasix] 80 mg PO DAILY 03/11/17 Gabapentin 100 - 200 mg PO QPM 03/11/17 Icosapent Ethyl [Vascepa] 2 gm PO BID 03/12/17 Sertraline HCl [Zoloft] 300 mg PO QPM 03/12/17 Objective - Vital Signs/Intake & Output Reviewed Vital Signs: Yes Vital Signs: Vital Signs x48h Temp Pulse Resp BP Pulse Ox 04/12/17 08:00 36.5 C 79 18 117/69 98 Intake & Output: Intake & Output 04/09/17 04/10/17 04/11/17 04/12/17 23:59 23:59 23:59 23:59 Intake Total 4230 3552 3270 1700 Output Total 8697 7050 4818 2850 Balance -4420 -3498 -1555 -1150 - Objective General Appearance: positive: No acute distress, Other (awake, alert, pleasant ( seen this morning and again in afternoon) had a "hopeful" look when he said he thought maybe he would get a cast) Respiratory: positive: Chest non-tender, No respiratory distress, Breath sounds nml, Other (no cough, trach collar unremarkable) Cardiovascular: positive: Regular rate & rhythm (distant) Abdomen: positive: Nml bowel sounds, Other (morbidly obese) Skin: positive: Warm, Dry Extremities: positive: Other (R heel still w/ black soft eschar ( 1x 1.5 ") ; unchanged (floated heels)) Neurologic/Psychiatric: positive: Mood/affect nml - Lab Results Fish Bones: 04/10/17 05:15 04/10/17 05:15 Other Labs: Lab Results x24hrs 04/12/17 04/12/17 Range/Units 11:40 07:56 POC Whole Bld Glucose 208 H 166 H (70 - 100) mg/dL Assessment/Plan - Problem List (1) Fracture of distal end of tibia Impression: (History of SAH, 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 Garcia which I suspect) will clarify 04/11; Re fracturePer Dr Garcia today The patient is gradually healing the right distal tibia fracture. There is slight widening of the fracture gap but it appears to be healing with early callus. He is not ready for any weight bearing, and I don't think the boot should be used at all. Casting is not really a viable option with this patient's leg size, and the ulcer. (PT had asked ~ 10 days ago when could be weight bearing; he had advised tib/ fib films ~ wk of April which would have been 4 wks from initial films, but these were already done on 04/04 2) Atrial fibrillation w/ Hx of RVR 04/12; rate controlled on amiodarone February 2017 [facility] admission afib RVR/ >>> reverted to NSR, this admit : atrial flutter rate controlled on 200 mg daily AMiodarone 70's, 80's On amiodarone (had been on cardizem before admit/ but RVR) RE: stroke prevention; no anticoagulation bc of prev brain hemorrhage Hypercapnia/ metabolic alkalosis Impression: chronic; stable , no sedation r/t obesity hypoventilation; no indication to recheck BMP In reviewing prior home meds, he was only on lasix 80mg q am (no afternoon dose ) ; considered if could drop the afternoon dose, but in d/w patient he says he still had edema on once daily dosing; will leave as is no change 03/30 compensation for resp acidosis carbon dioxide peaked at 40. At 35 yesterday obesity hypoventilation or PAUL stable (5) Diabetes type 2, uncontrolled Impression: Had had glucoses ~ 200 when I last saw him last week 300's this weekend when a friend brought him a big bag of pretzels much better again continues on lantus 80, and 40 prandial novolog 17 additional units correctional on 04/11 will resume his metformin; LORENA long since resolved, [facility] (6) HTN (hypertension), benign Impression: 04/12; stable BP 04/11BP stable low 100's had been on lisinopril 20 and diltiazem in past (dilt was for rate control ) now on amiodarone but BP was only low 100's reduced the lisinopril to 2.5 mg for renal protection and leaving at that dose 7AKI (acute kidney injury) Impression: Cr was checked 04/10; stable at 1.1 as above #5 ; will resume his metformin for DM LORENA long since resolved, and dont anticipate contrast study . Constipation: ( continue daily miralax (he prefers "schedule" of ~ q 3 day bm ; this last one was 4 days in between [facility] pneumonia (history of at time of admit)HCAP (associated with trach, in and out of hospital ) s/p 10 days of zosyn and levaquin blood C&S neg. stopped florastor 04/11 R upper molar dental caries 04/11; no further complaints needs to see dentist at some point after done SNF 04/02 start with warm salt water rinses after meals and bedtime for now if any worsening or swelling, will start augmentin dentist after d/c (doubt there is any way to get a patient pending placement to get a dental appt but will ask in d/c planning rounds in am) Qualifiers: Encounter type: subsequent encounter Fracture type: closed
[2017-04-12] MEDS: SERTRALINE 50 MG TABLET PO SCH (20:25)
[2017-04-12] MEDS: metFORMIN 500 MG TABLET PO SCH (20:26)
[2017-04-12] MEDS: GABAPENTIN 100 MG CAPSULE PO SCH (20:26)
[2017-04-12] MEDS: ATORVASTATIN 10 MG TABLET PO SCH (20:26)
[2017-04-12] MEDS: INSULIN GLARGINE 300 UNIT/3 ML PEN SUBQ SCH (20:29)
[2017-04-13] MEDS: HYDROcod/ACETAM 10 MG/325 MG TABLET PO PRN ×4 (01:24→22:22)
[2017-04-13] MEDS: INSULIN ASPART 300 UNIT/3 ML PEN SUBQ SCH ×7 (08:02→21:26)
[2017-04-13] MEDS: metFORMIN 500 MG TABLET PO SCH ×2 (09:07→16:42)
[2017-04-13] MEDS: MULTIVITAMIN TABLET PO SCH (09:07)
[2017-04-13] MEDS: FENOFIBRATE 48 MG TABLET PO SCH (09:07)
[2017-04-13] MEDS: ASPIRIN EC 81 MG TABLET PO SCH (09:07)
[2017-04-13] MEDS: DOCUSATE SODIUM 250 MG CAPSULE PO SCH (09:08)
[2017-04-13] MEDS: SENNA 8.6 MG TABLET PO SCH (09:08)
[2017-04-13] MEDS: FUROSEMIDE 40 MG TABLET PO SCH ×2 (09:08→13:46)
[2017-04-13] MEDS: ENOXAPARIN 40 MG/0.4 ML SYRINGE SUBQ SCH (09:08)
[2017-04-13] MEDS: AMIODARONE 200 MG TABLET PO SCH (09:08)
[2017-04-13] MEDS: LISINOPRIL 5 MG TABLET PO SCH (09:09)
[2017-04-13] MEDS: POLYETHYLENE GLYCOL 3350 17 GM PACKET PO SCH (09:09)
[2017-04-13] MEDS: MUPIROCIN 2% OINT 22 GM TUBE TOP SCH ×2 (09:10→22:03)
[2017-04-13] MEDS: NYSTATIN POWDER 15 GM TOP SCH ×2 (09:10→21:34)
[2017-04-13] MEDS: OMEGA-3 ACID ETHYL ESTERS 1 GM CAPSULE PO SCH ×2 (09:14→21:33)
--- NOTE | 2017-04-13 12:56 | PROVIDER PROGRESS NOTE ---
Subjective - Prog Note Date Prog Note Date: 04/13/17 Prog Note Time: 12:56 - Subjective Pt reports feeling: Improved (feels better with his sugar better controlled from his perspective) He says at home the lantus and novolog prandial dosing was same (but different PO intake than this controlled enviroment) Current Medications - Current Medications Current Medications: Active Medications Generic Name Dose Route Start Last Admin Trade Name Freq PRN Reason Stop Dose Admin Acetaminophen/Hydrocodone Bitart 1 tab 03/18/17 15:46 03/28/17 20:42 Seaford 10 Mg/325 Mg PO 2 tab Q4HR PRN Administration PAIN Acetaminophen/Hydrocodone Bitart 2 tab 03/18/17 15:46 04/13/17 12:20 Seaford 10 Mg/325 Mg PO 2 tab Q4HR PRN Administration PAIN Amiodarone HCl 200 mg 03/31/17 09:00 04/13/17 09:08 Pacerone PO 200 mg DAILY ARDEN Administration Aspirin 81 mg 03/21/17 09:00 04/13/17 09:07 Ecotrin PO 81 mg DAILY ARDEN Administration Atorvastatin Calcium 10 mg 03/15/17 21:00 04/12/17 20:26 Lipitor PO 10 mg QPM ARDEN Administration Baclofen 10 mg 03/15/17 16:40 03/30/17 21:16 Lioresal PO 10 mg TID PRN Administration Cramp Docusate Sodium 250 - 500 mg 03/17/17 09:00 04/13/17 09:08 Colace 250mg Capsule PO 250 mg DAILY ARDEN Administration Enoxaparin Sodium 40 mg 03/17/17 09:00 04/13/17 09:08 Lovenox SUBQ 40 mg DAILY ARDEN Administration Fenofibrate 144 mg 03/16/17 09:00 04/13/17 09:07 Tricor PO 144 mg DAILY ARDEN Administration Furosemide 80 mg 03/16/17 09:00 04/13/17 09:08 Lasix PO 80 mg DAILY ARDEN Administration Furosemide 40 mg 03/28/17 16:00 04/12/17 13:59 Lasix PO 40 mg DAILY@1400 ARDEN Administration Gabapentin 200 mg 03/15/17 21:00 04/12/17 20:26 Neurontin PO 200 mg QPM ARDEN Administration Insulin Aspart 40 unit 03/15/17 17:00 04/13/17 11:53 Novolog SUBQ 40 unit TIDWM ARDEN Administration Insulin Aspart 3 - 11 unit 03/30/17 12:00 04/13/17 11:54 Novolog SUBQ 3 unit 0800,1200,1700,2100 ARDEN Administration Protocol Insulin Glargine 80 unit 04/01/17 21:00 04/12/17 20:29 Lantus Solostar SUBQ 80 unit QPM ARDEN Administration Lisinopril 2.5 mg 04/03/17 09:00 04/13/17 09:09 Zestril PO 2.5 mg DAILY ARDEN Administration Metformin HCl 1,000 mg 04/12/17 20:00 04/13/17 09:07 Glucophage PO 1,000 mg BIDWM ARDEN Administration Multivitamins 1 tab 03/16/17 08:00 04/13/17 09:07 Theragran PO 1 tab DAILYWM ARDEN Administration Mupirocin 1 applic 03/21/17 21:00 04/13/17 09:10 Bactroban 2% Oint TOP 1 applic BID ARDEN Administration Nystatin 1 applic 03/19/17 14:00 04/13/17 09:10 Nystop TOP 1 applic BID ARDEN Administration [id number] Ethyl Esters 2 gm 03/15/17 21:00 04/13/17 09:14 Lovaza PO 2 gm BID ARDEN Administration Polyethylene Glycol 17 gm 03/17/17 09:00 04/13/17 09:09 Miralax PO 17 gm DAILY ARDEN Administration Senna 8.6 - 17.2 mg 03/17/17 09:00 04/13/17 09:08 Senokot PO 8.6 mg DAILY ARDEN Administration Sertraline HCl 300 mg 03/15/17 21:00 04/12/17 20:25 Zoloft PO 300 mg QPM ARDEN Administration Insulin Glargine,Hum.rec.anlog [Lantus Solostar] 76 unit SQ QPM 03/20/13 Lisinopril 10 mg PO BID 03/20/13 Lovastatin 40 mg PO QPM 03/20/13 Multivitamin [Multivitamins] 1 each PO DAILY 03/20/13 metFORMIN [Glucophage] 1,000 mg PO BIDWM 03/20/13 Fenofibrate 160 mg PO DAILY 06/10/14 Aspirin 81 mg PO DAILY 10/04/16 HYDROcodone/ACET 10/325 [Seaford 10 mg/325 mg] 1 tab PO QID 10/04/16 Insulin Aspart [Novolog Flexpen] 40 unit SUBQ TIDWM 10/04/16 Furosemide [Lasix] 80 mg PO DAILY 03/11/17 Gabapentin 100 - 200 mg PO QPM 03/11/17 Icosapent Ethyl [Vascepa] 2 gm PO BID 03/12/17 Sertraline HCl [Zoloft] 300 mg PO QPM 03/12/17 Objective - Vital Signs/Intake & Output Reviewed Vital Signs: Yes Vital Signs: Vital Signs x48h Temp Pulse Resp BP Pulse Ox 04/13/17 08:00 36.9 C 85 15 104/68 97 Intake & Output: Intake & Output 04/10/17 04/11/17 04/12/17 04/13/17 23:59 23:59 23:59 23:59 Intake Total 3552 3270 3948 1300 Output Total 7031 4473 4250 1600 Balance -3498 -1555 -302 -300 - Objective General Appearance: positive: No acute distress, Other (lying in bed NAD) Respiratory: positive: No respiratory distress, Breath sounds nml, Other (trach collar in place, no cough) Cardiovascular: positive: Regular rate & rhythm (sl distant) Abdomen: positive: Nml bowel sounds, No distention, Other (obese pannus, groin folds clean, I assisted with urinal , penis involuted in scrotal skin (is able to use female urinal). negative: Tenderness Skin: positive: Warm, Dry, Other (RN noted late in evening that the escharR heel was starting to peel off, placing gauze dressing, I will reeval in am (was ~ 1x1.5 inch soft black eschar) Neurologic/Psychiatric: positive: Oriented x3 - Lab Results Fish Bones: 04/10/17 05:15 04/10/17 05:15 Other Labs: Lab Results x24hrs 04/13/17 04/13/17 04/12/17 Range/Units 11:27 07:20 20:29 POC Whole Bld Glucose 179 H 153 H 137 H (70 - 100) mg/dL 04/12/17 Range/Units 16:37 POC Whole Bld Glucose 120 H (70 - 100) mg/dL Assessment/Plan - Problem List (1) Fracture of distal end of tibia Impression: 1) Fracture of distal end of tibia Impression: (History of SAH, 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 Unable to manage independently especially with #the nonbearing wt status, and normally lives w/ elderly mother (also has PURA (at home) Has been awaiting placement which may be available at [facility] soon per case management 04/13: Dr sutherland spoke with me this am, that he IS considering trial of CAM boot on ONLY for transfer OOB to chair (w/o pivoting), no order yet (he is d/w PT) 2) Atrial fibrillation w/ Hx of RVR 04/12; rate controlled on amiodarone February 2017 [facility] admission afib RVR/ >>> reverted to NSR, this admit : atrial flutter rate controlled on 200 mg daily AMiodarone 70's, 80's On amiodarone (had been on cardizem before admit/ but RVR) RE: stroke prevention; no anticoagulation bc of prev brain hemorrhage Hypercapnia/ metabolic alkalosis Impression: no change 04/13 chronic; stable , no sedation r/t obesity hypoventilation; no indication to recheck BMP In reviewing prior home meds, he was only on lasix 80mg q am (no afternoon dose ) ; considered if could drop the afternoon dose, but in d/w patient he says he still had edema on once daily dosing; will leave as is no change 03/30 compensation for resp acidosis carbon dioxide peaked at 40. At 35 yesterday obesity hypoventilation or PAUL stable (5) Diabetes type 2, uncontrolled Impression: 04/13; MUCH better controlled glucoses (surprised if related just to resumption of metformin/ better cell uptake of gluc) will monitor carefully for HYPOglycemia, may need to reduce the prandial dose ( but very reasonable control (even a bit under 140-180) Addendum; 9pm; noted HS glucose 109 (has already received pm lantus). Got prandial insulin, no correctional coverage will give liberal bedtime snack now. Recheck glucose at 10 pm and again 12a, 4a , (D5 at slow rate if below 100) Had had glucoses ~ 200 when I last saw him last week 300's this weekend when a friend brought him a big bag of pretzels much better again continues on lantus 80, and 40 prandial novolog 17 additional units correctional on 04/11 will resume his metformin; LORENA long since resolved, no likley contrast study at this point (6) HTN (hypertension), benign Impression: 04/13; BP's reasonable range on ACEI dose primarily for renal protection/DM 04/11BP stable low 100's had been on lisinopril 20 and diltiazem in past (dilt was for rate control ) now on amiodarone but BP was only low 100's reduced the lisinopril to 2.5 mg for renal protection and leaving at that dose 7AKI (acute kidney injury) Impression: Cr was checked 04/10; stable at 1.1 as above #5 ; will resume his metformin for DM LORENA long since resolved, and dont anticipate contrast study . Constipation: ( continue daily miralax (he prefers "schedule" of ~ q 3 day bm ; this last one was 4 days in between [facility] (history of at time of admit)HCAP (associated with trach, in and out of hospital ) s/p 10 days of zosyn and levaquin blood C&S neg. stopped florastor 04/11 R upper molar dental caries 04/11; no further complaints needs to see dentist at some point after done SNF 04/02 start with warm salt water rinses after meals and bedtime for now if any worsening or swelling, will start augmentin dentist after d/c (doubt there is any way to get a patient pending placement to get a dental appt but will ask in d/c planning rounds in am) Qualifiers: Encounter type: subsequent encounter Fracture type: closed
[2017-04-13] MEDS: GABAPENTIN 100 MG CAPSULE PO SCH (21:34)
[2017-04-13] MEDS: SERTRALINE 50 MG TABLET PO SCH (21:34)
[2017-04-13] MEDS: ATORVASTATIN 10 MG TABLET PO SCH (21:34)
[2017-04-13] MEDS: NYSTATIN CREAM 15 GM TUBE TOP SCH (22:02)
[2017-04-14] MEDS: HYDROcod/ACETAM 10 MG/325 MG TABLET PO PRN ×5 (02:37→21:58)
[2017-04-14] MEDS: INSULIN ASPART 300 UNIT/3 ML PEN SUBQ SCH ×7 (08:20→22:03)
[2017-04-14] MEDS: POLYETHYLENE GLYCOL 3350 17 GM PACKET PO SCH (08:21)
[2017-04-14] MEDS: metFORMIN 500 MG TABLET PO SCH ×2 (08:21→17:09)
[2017-04-14] MEDS: OMEGA-3 ACID ETHYL ESTERS 1 GM CAPSULE PO SCH ×2 (08:21→21:59)
[2017-04-14] MEDS: SENNA 8.6 MG TABLET PO SCH (08:22)
[2017-04-14] MEDS: AMIODARONE 200 MG TABLET PO SCH (08:22)
[2017-04-14] MEDS: DOCUSATE SODIUM 250 MG CAPSULE PO SCH (08:22)
[2017-04-14] MEDS: FUROSEMIDE 40 MG TABLET PO SCH ×2 (08:22→14:11)
[2017-04-14] MEDS: MULTIVITAMIN TABLET PO SCH (08:23)
[2017-04-14] MEDS: FENOFIBRATE 48 MG TABLET PO SCH (08:23)
[2017-04-14] MEDS: ASPIRIN EC 81 MG TABLET PO SCH (08:23)
[2017-04-14] MEDS: LISINOPRIL 5 MG TABLET PO SCH (08:23)
[2017-04-14] MEDS: ENOXAPARIN 40 MG/0.4 ML SYRINGE SUBQ SCH (08:27)
[2017-04-14] MEDS: MUPIROCIN 2% OINT 22 GM TUBE TOP SCH ×2 (11:04→22:06)
[2017-04-14] MEDS: NYSTATIN POWDER 15 GM TOP SCH ×2 (11:05→22:06)
--- NOTE | 2017-04-14 14:25 | PROVIDER PROGRESS NOTE ---
Subjective - Prog Note Date Prog Note Date: 04/14/17 Prog Note Time: 14:16 (late entry ) - Subjective Pt reports feeling: Improved ("they parted my hair differently today" no complaints) Current Medications - Current Medications Current Medications: Active Medications Generic Name Dose Route Start Last Admin Trade Name Freq PRN Reason Stop Dose Admin Acetaminophen/Hydrocodone Bitart 1 tab 03/18/17 15:46 04/13/17 22:22 [place] 10 Mg/325 Mg PO 1 tab Q4HR PRN Administration PAIN Acetaminophen/Hydrocodone Bitart 2 tab 03/18/17 15:46 04/14/17 14:10 [place] 10 Mg/325 Mg PO 2 tab Q4HR PRN Administration PAIN Amiodarone HCl 200 mg 03/31/17 09:00 04/14/17 08:22 Pacerone PO 200 mg DAILY ARDEN Administration Aspirin 81 mg 03/21/17 09:00 04/14/17 08:23 Ecotrin PO 81 mg DAILY ARDEN Administration Atorvastatin Calcium 10 mg 03/15/17 21:00 04/13/17 21:34 Lipitor PO 10 mg QPM ARDEN Administration Baclofen 10 mg 03/15/17 16:40 03/30/17 21:16 Lioresal PO 10 mg TID PRN Administration Cramp Docusate Sodium 250 - 500 mg 03/17/17 09:00 04/14/17 08:22 Colace 250mg Capsule PO 250 mg DAILY ARDEN Administration Enoxaparin Sodium 40 mg 03/17/17 09:00 04/14/17 08:27 Lovenox SUBQ 40 mg DAILY ARDEN Administration Fenofibrate 144 mg 03/16/17 09:00 04/14/17 08:23 Tricor PO 144 mg DAILY ARDEN Administration Furosemide 80 mg 03/16/17 09:00 04/14/17 08:22 Lasix PO 80 mg DAILY ARDEN Administration Furosemide 40 mg 03/28/17 16:00 04/14/17 14:11 Lasix PO 40 mg DAILY@1400 ARDEN Administration Gabapentin 200 mg 03/15/17 21:00 04/13/17 21:34 Neurontin PO 200 mg QPM ARDEN Administration Insulin Aspart 3 - 11 unit 03/30/17 12:00 04/14/17 11:49 Novolog SUBQ 5 unit 0800,1200,1700,2100 ARDEN Administration Protocol Insulin Aspart 38 unit 04/14/17 14:16 Novolog SUBQ TIDWM [facility] Protocol Insulin Glargine 70 unit 04/14/17 21:00 Lantus Solostar SUBQ QPM ARDNE Lisinopril 2.5 mg 04/03/17 09:00 04/14/17 08:23 Zestril PO 2.5 mg DAILY ARDEN Administration Metformin HCl 1,000 mg 04/12/17 20:00 04/14/17 08:21 Glucophage PO 1,000 mg BIDWM ARDEN Administration Multivitamins 1 tab 03/16/17 08:00 04/14/17 08:23 Theragran PO 1 tab DAILYWM [facility] Administration Mupirocin 1 applic 03/21/17 21:00 04/14/17 11:04 Bactroban 2% Oint TOP 1 applic BID ARDEN Administration Nystatin 1 applic 03/19/17 14:00 04/14/17 11:05 Nystop TOP 1 applic BID ARDEN Administration Jlojy-3-[id number] Ethyl Esters 2 gm 03/15/17 21:00 04/14/17 08:21 Lovaza PO 2 gm BID ARDEN Administration Polyethylene Glycol 17 gm 03/17/17 09:00 04/14/17 08:21 Miralax PO 17 gm DAILY ARDEN Administration Senna 8.6 - 17.2 mg 03/17/17 09:00 04/14/17 08:22 Senokot PO 8.6 mg DAILY AR[facility] Administration Sertraline HCl 300 mg 03/15/17 21:00 04/13/17 21:34 Zoloft PO 300 mg QPM ARDEN Administration Insulin Glargine,Hum.rec.anlog [Lantus Solostar] 76 unit SQ QPM 03/20/13 Lisinopril 10 mg PO BID 03/20/13 Lovastatin 40 mg PO QPM 03/20/13 Multivitamin [Multivitamins] 1 each PO DAILY 03/20/13 metFORMIN [Glucophage] 1,000 mg PO BIDWM 03/20/13 Fenofibrate 160 mg PO DAILY 06/10/14 Aspirin 81 mg PO DAILY 10/04/16 HYDROcodone/ACET 10/325 [[place] 10 mg/325 mg] 1 tab PO QID 10/04/16 Insulin Aspart [Novolog Flexpen] 40 unit SUBQ TIDWM 10/04/16 Furosemide [Lasix] 80 mg PO DAILY 03/11/17 Gabapentin 100 - 200 mg PO QPM 03/11/17 Icosapent Ethyl [Vascepa] 2 gm PO BID 03/12/17 Sertraline HCl [Zoloft] 300 mg PO QPM 03/12/17 Objective - Vital Signs/Intake & Output Reviewed Vital Signs: Yes Vital Signs: Vital Signs x48h Temp Pulse Resp BP Pulse Ox 04/14/17 08:34 36.7 C 84 18 113/78 97 Intake & Output: Intake & Output 04/11/17 04/12/17 04/13/17 04/14/17 23:59 23:59 23:59 23:59 Intake Total 3270 3948 2280 1696 Output Total 4841 2374 2752 4830 Balance -1555 -302 -470 -654 - Objective General Appearance: positive: No acute distress, Other (not fully examined today Lying in bed, animated today, unlabored resps,trach collar intact) Skin: positive: Other (L heel eschar (pressure ulcer which developed from CAM walker) starting to peel away from granulation tissue stockinet in place to prevent sheer,) - Lab Results Fish Bones: 04/10/17 05:15 04/10/17 05:15 Other Labs: Lab Results x24hrs 04/14/17 04/14/17 04/14/17 Range/Units 11:22 07:44 03:48 POC Whole Bld Glucose 221 H 269 H 233 H (70 - 100) mg/dL 04/13/17 04/13/17 04/13/17 Range/Units 23:44 22:04 20:27 POC Whole Bld Glucose 176 H 146 H 109 H (70 - 100) mg/dL 04/13/17 Range/Units 16:26 POC Whole Bld Glucose 121 H (70 - 100) mg/dL Assessment/Plan - Problem List (1) Fracture of distal end of tibia Impression: (History of SAH, 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 Unable to manage independently especially with #the nonbearing wt status, and normally lives w/ elderly mother (also has PURA (at home) [facility] been [facility] 04/14: have not heard further from orthopedic surgeon if the CAM boot for transfer is feasible (Per PT/OT we have no chair for him to pivot INTO 04/13: Dr sutherland spoke with me this am, that he IS considering trial of CAM boot on ONLY for transfer OOB to chair (w/o pivoting), no order yet (he is d/w PT) RE: left heel eschar, order in for Pam to eval on Mon, continue to float heels, continue stockinet to prevent sheer 2) Atrial fibrillation w/ Hx of RVR 04/14; rate well controlled (sounds regular on exam) February 2017 [facility] admission afib RVR/ >>> reverted to NSR, this admit : atrial flutter rate controlled on 200 mg daily AMiodarone 70's, 80's On amiodarone (had been on cardizem before admit/ but RVR) RE: stroke prevention; no anticoagulation bc of prev brain hemorrhage Hypercapnia/ metabolic alkalosis Impression: no change 04/14 chronic; stable , no sedation r/t obesity hypoventilation; no indication to recheck BMP Patient was reluctant to try eliminating midday lasix dose (which he has been on since here w/ stable Hc03) as he developed LE edema otherwise no change 03/30 compensation for resp acidosis carbon dioxide peaked at 40. At 35 yesterday obesity hypoventilation or PAUL stable (5) Diabetes type 2, uncontrolled Impression: 04/14; resumed metformin on 04/12 as no anticipation of needing IV contrast study and LORENA from earlier in admision long since resolved Remarkable improvement in his FSBG/measures/ had some concern for possible hypoglycemia last night (has been on 80 lantus q pm, and 40 u prandial novolog, and high dose correctional. glucose 221 this am after a liberal night time snack 04/13 pm since he had a glucose of 109 conservatively reduced his prandial insulin to 35 units today. Will eval on 38 units prandial insulin and 75 u. pm lantus (still on correctional SSI) will modify later if dinner POC glucose warrants (180; will leave as is) (6) HTN (hypertension), benign Impression: 04/14; no change 04/13; BP's reasonable range on ACEI dose primarily for renal protection/DM 04/11BP stable low 100's had been on lisinopril 20 and diltiazem in past (dilt was for rate control ) now on amiodarone but BP was only low 100's reduced the lisinopril to 2.5 mg for renal protection and leaving at that dose (Other history of resolved problems since awaiting placement 7AKI (acute kidney injury) Impression: Cr was checked 04/10; stable at 1.1 as above #5 ; will resumed his metformin for DM LORENA long since resolved, and dont anticipate contrast study . Constipation: ( continue daily miralax (he prefers "schedule" of ~ q 3 day bm ; this last one was 4 days in between 9)Health Care acquired pneumonia (history of at time of admit)HCAP (associated with trach, in and out of hospital ) s/p 10 days of zosyn and levaquin blood C&S neg. stopped florastor 04/11 10R upper molar dental caries 04/11; no further complaints needs to see dentist at some point after done SNF 04/02 start with warm salt water rinses after meals and bedtime for now if any worsening or swelling, will start augmentin dentist after d/c (doubt there is any way to get a patient pending placemen Qualifiers: Encounter type: subsequent encounter Fracture type: closed
[2017-04-14] MEDS ORDERED: INSULIN GLARGINE 300 UNIT/3 ML PEN SUBQ SCH (21:00)
[2017-04-14] MEDS: GABAPENTIN 100 MG CAPSULE PO SCH (21:58)
[2017-04-14] MEDS: SERTRALINE 50 MG TABLET PO SCH (21:58)
[2017-04-14] MEDS: ATORVASTATIN 10 MG TABLET PO SCH (21:59)
[2017-04-14] MEDS: INSULIN GLARGINE 300 UNIT/3 ML PEN SUBQ SCH (22:02)
[2017-04-15] MEDS: HYDROcod/ACETAM 10 MG/325 MG TABLET PO PRN ×3 (06:44→21:06)
[2017-04-15] MEDS: INSULIN ASPART 300 UNIT/3 ML PEN SUBQ SCH ×7 (08:43→21:07)
[2017-04-15] MEDS: FENOFIBRATE 48 MG TABLET PO SCH (08:45)
[2017-04-15] MEDS: DOCUSATE SODIUM 250 MG CAPSULE PO SCH (08:45)
[2017-04-15] MEDS: SENNA 8.6 MG TABLET PO SCH (08:46)
[2017-04-15] MEDS: ASPIRIN EC 81 MG TABLET PO SCH (08:46)
[2017-04-15] MEDS: FUROSEMIDE 40 MG TABLET PO SCH ×2 (08:46→14:21)
[2017-04-15] MEDS: LISINOPRIL 5 MG TABLET PO SCH (08:47)
[2017-04-15] MEDS: AMIODARONE 200 MG TABLET PO SCH (08:47)
[2017-04-15] MEDS: MULTIVITAMIN TABLET PO SCH (08:47)
[2017-04-15] MEDS: metFORMIN 500 MG TABLET PO SCH ×2 (08:48→17:05)
[2017-04-15] MEDS: POLYETHYLENE GLYCOL 3350 17 GM PACKET PO SCH (08:50)
[2017-04-15] MEDS: OMEGA-3 ACID ETHYL ESTERS 1 GM CAPSULE PO SCH ×2 (08:52→21:06)
[2017-04-15] MEDS: NYSTATIN POWDER 15 GM TOP SCH ×2 (08:53→21:13)
[2017-04-15] MEDS: MUPIROCIN 2% OINT 22 GM TUBE TOP SCH ×2 (08:53→21:13)
[2017-04-15] MEDS: ENOXAPARIN 40 MG/0.4 ML SYRINGE SUBQ SCH (08:54)
--- NOTE | 2017-04-15 14:23 | PROVIDER PROGRESS NOTE ---
Subjective - Prog Note Date Prog Note Date: 04/15/17 Prog Note Time: 09:15 - Subjective Pt reports feeling: No change Subjective: Patient sitting up eating breakfast, no new complaints, makes me aware of the ulcer on the right heel and the dried callus skin is starting to "breakaway" and is getting snagged on sheets/socks/etc. He denies fever, chills or calf pain. Reports good appetite and no nausea. Feels "trapped" stuck in the hospital pending placement. Current Medications - Current Medications Current Medications: Current Medications Generic Name Dose Route Start Last Admin Trade Name Freq PRN Reason Stop Dose Admin Acetaminophen/Hydrocodone Bitart 1 tab 03/18/17 15:46 04/13/17 22:22 [place] 10 Mg/325 Mg PO 1 tab Q4HR PRN Administration PAIN Acetaminophen/Hydrocodone Bitart 2 tab 03/18/17 15:46 04/15/17 06:44 [place] 10 Mg/325 Mg PO 2 tab Q4HR PRN Administration PAIN Amiodarone HCl 200 mg 03/31/17 09:00 04/15/17 08:47 Pacerone PO 200 mg DAILY ARDEN Administration Aspirin 81 mg 03/21/17 09:00 04/15/17 08:46 Ecotrin PO 81 mg DAILY ARDEN Administration Atorvastatin Calcium 10 mg 03/15/17 21:00 04/14/17 21:59 Lipitor PO 10 mg QPM ARDEN Administration Baclofen 10 mg 03/15/17 16:40 03/30/17 21:16 Lioresal PO 10 mg TID PRN Administration Cramp Docusate Sodium 250 - 500 mg 03/17/17 09:00 04/15/17 08:45 Colace 250mg Capsule PO 250 mg DAILY ARDEN Administration Enoxaparin Sodium 40 mg 03/17/17 09:00 04/15/17 08:54 Lovenox SUBQ 40 mg DAILY ARDEN Administration Fenofibrate 144 mg 03/16/17 09:00 04/15/17 08:45 Tricor PO 144 mg DAILY ARDEN Administration Furosemide 80 mg 03/16/17 09:00 04/15/17 08:46 Lasix PO 80 mg DAILY ARDEN Administration Furosemide 40 mg 03/28/17 16:00 04/15/17 14:21 Lasix PO 40 mg DAILY@1400 ARDEN Administration Gabapentin 200 mg 03/15/17 21:00 04/14/17 21:58 Neurontin PO 200 mg QPM ARDEN Administration Insulin Aspart 3 - 11 unit 03/30/17 12:00 04/15/17 11:53 Novolog SUBQ 7 unit 0800,1200,1700,2100 ARDEN Administration Protocol Insulin Aspart 38 unit 04/14/17 17:00 04/15/17 11:54 Novolog SUBQ 38 unit TIDWM ARDEN Administration Protocol Insulin Glargine 75 unit 04/14/17 21:00 04/14/17 22:02 Lantus Solostar SUBQ 75 unit QPM ARDEN Administration Lisinopril 2.5 mg 04/03/17 09:00 04/15/17 08:47 Zestril PO 2.5 mg DAILY ARDEN Administration Metformin HCl 1,000 mg 04/12/17 20:00 04/15/17 08:48 Glucophage PO 1,000 mg BIDWM ARDEN Administration Multivitamins 1 tab 03/16/17 08:00 04/15/17 08:47 Theragran PO 1 tab DAILYWM AR[place] Administration Mupirocin 1 applic 03/21/17 21:00 04/15/17 08:53 Bactroban 2% Oint TOP 1 applic BID ARDEN Administration Nystatin 1 applic 03/19/17 14:00 04/15/17 08:53 Nystop TOP Not Given BID ARDEN Vhrqu-5-Lpsm Ethyl Esters 2 gm 03/15/17 21:00 04/15/17 08:52 Lovaza PO 2 gm BID ARDEN Administration Polyethylene Glycol 17 gm 03/17/17 09:00 04/15/17 08:50 Miralax PO 17 gm DAILY ARDEN Administration Senna 8.6 - 17.2 mg 03/17/17 09:00 04/15/17 08:46 Senokot PO 8.6 mg DAILY ARDEN Administration Sertraline HCl 300 mg 03/15/17 21:00 04/14/17 21:58 Zoloft PO 300 mg QPM ARDEN Administration Objective - Vital Signs/Intake & Output Reviewed Vital Signs: Yes Vital Signs: Vital Signs x48h Temp Pulse Resp BP Pulse Ox 04/15/17 07:40 36.5 C 87 20 120/81 H 98 Intake & Output: Intake & Output 04/12/17 04/13/17 04/14/17 04/15/17 23:59 23:59 23:59 23:59 Intake Total 3948 2280 2936 1420 Output Total 2262 8812 7790 1339 [facility] [place]764 -516 -1234 -1975 - Objective General Appearance: positive: No acute distress, Alert Eyes Bilateral: positive: Normal inspection ENT: positive: Other (TRACH with trach collar) Neck: positive: No JVD Respiratory: positive: Chest non-tender, No respiratory distress, Breath sounds nml Cardiovascular: positive: Regular rate & rhythm, No murmur. negative: Tachycardia Peripheral Pulses: 1+ Dorsalis pedis (R), 1+ Dorsalis pedis (L), 2+ Radial (R), 2+ Radial (L) Abdomen: positive: Non-tender, Nml bowel sounds (obese) Skin: positive: Color nml, Warm, Dry, Other (black ulcer on the right posterior heel, aunable to stage due to eschar) Extremities: positive: Non-tender (obese) Neurologic/Psychiatric: positive: Oriented x3, Motor nml (limited by body habitus), Mood/affect nml - Lab Results Fish Bones: 04/10/17 05:15 04/10/17 05:15 Other Labs: Lab Results x24hrs 04/15/17 04/15/17 04/14/17 Range/Units 11:27 07:41 21:01 POC Whole Bld Glucose 234 H 269 H 141 H (70 - 100) mg/dL 04/14/17 Range/Units 16:41 POC Whole Bld Glucose 170 H (70 - 100) mg/dL - Diagnostic Imaging Diagnostic Imaging Results: positive: See rad report Assessment/Plan - Problem List (1) Fracture of distal end of tibia Impression: History of SAH, aneurysmal clip 2007 with residual R sided weakness and trach 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 Now with inability to manage ADLs due to NWB status, he does have PURA, previously lived w/ elderly mother. -Awaiting placement which may be available at [facility] soon per case management -NWB until ortho deems ok (2) Atrial fibrillation w/ Hx of RVR Impression: February 2017 [facility] admission afib RVR/ >>> reverted to NSR, this admit Rate controlled on 200 mg daily Amiodarone CVA prevention: no anticoagulation 2/2 previous SAH -Monitor for RVR (3) Hypercapnia/ metabolic alkalosis Impression: Etiology: obesity hypoventilation syndorme. Chronic; stable , awake, alert. Hypochloremia - improving, 88 on admit, now 94. Anion gap WNL -Monitor for sedation (5) Diabetes type 2, uncontrolled with right heel ulcer Impression: T2DM on metformin + lantus + nutritional insulin at home, A1c improved from 11.6 -->9.2%. Resumed metformin on 04/12 as no anticipation of needing IV contrast study and previous LORENA had resolved. Remarkable improvement in his FSBG/measures/ had some concern for possible hypoglycemia last night (has been on 80 lantus q pm, and 40 u prandial novolog, and high dose correctional. -Continue metformin bid -Lantus 75 qHS -Novolog 38u with meals -Novolog high dose SSI for correction -Continue gabapentin for neuropathy Right heel ulcer, black, dry, thick dry skin is cracking/peeling. -Wound RN to eval on monday -Cover to prevent shearing (6) HTN (hypertension), benign Impression: On LIZA, CCB, lasix at home. Normotensive. CCB stopped, now on amiodarone for afib rate control. LIZA for renal protection 2/2 DM, dose reduced 2/2 SBP in 100s -Continue lisinopril -Continue amiodarone -Monitor BP routinely and titrate meds as needed Resolved Issues: (7) LORENA (acute kidney injury) Impression: No hx of CKD, baseline creat 1.0. Was 1.3 on 03/13 - improved with then up again to 1.4 from 03/19-03/27. Now 1.1. -Avoid nephrotoxic agents (8) Constipation: Patient goal, q3d BM. -Continue daily miralax (9)Health care acquired pneumonia Admitting diagnosis, risks include in/out of hospital that week, CT chest with consolidation in the lingula and LLL, Bilat LL atelectasis. Now s/p 10 days of zosyn and levaquin. Blood cultures negative. CXR on 03/16 with no focal consolidation. Stopped florastor 04/11 (10) upper molar dental caries Reccomended warm salt water rinses after meals and bedtime -needs to see dentist at some point after done SNF -if infection occurs consider stating augmentin This progress note was adapted from that of Bird CHAHAL on 04/04/17. Patient is currently pending placement, otherwise medically stable. Qualifiers: Encounter type: subsequent encounter Fracture type: closed
[2017-04-15] MEDS: SERTRALINE 50 MG TABLET PO SCH (21:05)
[2017-04-15] MEDS: GABAPENTIN 100 MG CAPSULE PO SCH (21:06)
[2017-04-15] MEDS: ATORVASTATIN 10 MG TABLET PO SCH (21:06)
[2017-04-15] MEDS: INSULIN GLARGINE 300 UNIT/3 ML PEN SUBQ SCH (21:07)
[2017-04-16] MEDS: HYDROcod/ACETAM 10 MG/325 MG TABLET PO PRN ×5 (02:19→23:18)
[2017-04-16] MEDS: POLYETHYLENE GLYCOL 3350 17 GM PACKET PO SCH (08:24)
[2017-04-16] MEDS: DOCUSATE SODIUM 250 MG CAPSULE PO SCH (08:24)
[2017-04-16] MEDS: LISINOPRIL 5 MG TABLET PO SCH (08:25)
[2017-04-16] MEDS: FENOFIBRATE 48 MG TABLET PO SCH (08:26)
[2017-04-16] MEDS: FUROSEMIDE 40 MG TABLET PO SCH ×2 (08:26→14:08)
[2017-04-16] MEDS: ASPIRIN EC 81 MG TABLET PO SCH (08:26)
[2017-04-16] MEDS: OMEGA-3 ACID ETHYL ESTERS 1 GM CAPSULE PO SCH ×2 (08:27→20:48)
[2017-04-16] MEDS: AMIODARONE 200 MG TABLET PO SCH (08:27)
[2017-04-16] MEDS: SENNA 8.6 MG TABLET PO SCH (08:27)
[2017-04-16] MEDS: MULTIVITAMIN TABLET PO SCH (08:27)
[2017-04-16] MEDS: metFORMIN 500 MG TABLET PO SCH ×2 (08:30→17:23)
[2017-04-16] MEDS: INSULIN ASPART 300 UNIT/3 ML PEN SUBQ SCH ×7 (08:31→20:50)
[2017-04-16] MEDS: ENOXAPARIN 40 MG/0.4 ML SYRINGE SUBQ SCH (08:34)
[2017-04-16] MEDS: MUPIROCIN 2% OINT 22 GM TUBE TOP SCH ×2 (08:38→21:06)
[2017-04-16] MEDS: NYSTATIN POWDER 15 GM TOP SCH ×2 (09:03→21:06)
--- NOTE | 2017-04-16 09:08 | PROVIDER PROGRESS NOTE ---
Subjective - Prog Note Date Prog Note Date: 04/16/17 Prog Note Time: 09:06 - Subjective Pt reports feeling: No change Subjective: Jhonny lewisp in bed eatign breakfast, no new complaints. Breathing at baseline, good appetite, chronic pain - ready for meds soon. No nausea, chest or abdominal pain, no fever/chills, no constipation/diarrhea. Current Medications - Current Medications Current Medications: Active Medications Acetaminophen/Hydrocodone Bitart ([place] 10 Mg/325 Mg) 1 tab PO Q4HR PRN PRN Reason: PAIN Last Admin: 04/13/17 22:22 Dose: 1 tab Acetaminophen/Hydrocodone Bitart ([place] 10 Mg/325 Mg) 2 tab PO Q4HR PRN PRN Reason: PAIN Last Admin: 04/16/17 08:25 Dose: 2 tab Amiodarone HCl ([place]) 200 mg PO DAILY [facility] Last Admin: 04/16/17 08:27 Dose: 200 mg Aspirin (Ecotrin) 81 mg PO DAILY [facility] Last Admin: 04/16/17 08:26 Dose: 81 mg Atorvastatin Calcium (Lipitor) 10 mg PO QPM [facility] Last Admin: 04/15/17 21:06 Dose: 10 mg Baclofen (Lioresal) 10 mg PO TID PRN PRN Reason: Cramp Last Admin: 03/30/17 21:16 Dose: 10 mg Docusate Sodium (Colace 250mg Capsule) 250 - 500 mg PO DAILY [facility] Last Admin: 04/16/17 08:24 Dose: 250 mg Enoxaparin Sodium (Lovenox) 40 mg SUBQ DAILY [facility] Last Admin: 04/16/17 08:34 Dose: 40 mg Fenofibrate (Tricor) 144 mg PO DAILY [facility] Last Admin: 04/16/17 08:26 Dose: 144 mg Furosemide (Lasix) 80 mg PO DAILY [facility] Last Admin: 04/16/17 08:26 Dose: 80 mg Furosemide (Lasix) 40 mg PO DAILY@1400 [facility] Last Admin: 04/15/17 14:21 Dose: 40 mg Gabapentin (Neurontin) 200 mg PO QPM [facility] Last Admin: 04/15/17 21:06 Dose: 200 mg Insulin Aspart (Novolog) 3 - 11 unit SUBQ 0800,1200,1700,2100 [facility] PRN Reason: Protocol Last Admin: 04/16/17 08:31 Dose: 7 unit Insulin Aspart (Novolog) 38 unit SUBQ TIDWM [facility] PRN Reason: Protocol Last Admin: 04/16/17 08:32 Dose: 38 unit Insulin Glargine (Lantus Solostar) 80 unit SUBQ QPM [facility] Lisinopril (Zestril) 2.5 mg PO DAILY [facility] Last Admin: 04/16/17 08:25 Dose: 2.5 mg Metformin HCl (Glucophage) 1,000 mg PO BIDWM [facility] Last Admin: 04/16/17 08:30 Dose: 1,000 mg Multivitamins (Theragran) 1 tab PO DAILYWM [facility] Last Admin: 04/16/17 08:27 Dose: 1 tab Mupirocin (Bactroban 2% Oint) 1 applic TOP BID [facility] Last Admin: 04/16/17 08:38 Dose: 1 applic Nystatin (Nystop) 1 applic TOP BID [facility] Last Admin: 04/16/17 09:03 Dose: Not Given Rqdav-0-Lkls Ethyl Esters (Lovaza) 2 gm PO BID [facility] Last Admin: 04/16/17 08:27 Dose: 2 gm Polyethylene Glycol (Miralax) 17 gm PO DAILY [facility] Last Admin: 04/16/17 08:24 Dose: 17 gm Senna (Senokot) 8.6 - 17.2 mg PO DAILY [facility] Last Admin: 04/16/17 08:27 Dose: 8.6 mg Sertraline HCl (Zoloft) 300 mg PO QPM [facility] Last Admin: 04/15/17 21:05 Dose: 300 mg Insulin Glargine,Hum.rec.anlog [Lantus Solostar] 76 unit SQ QPM 03/20/13 Lisinopril 10 mg PO BID 03/20/13 Lovastatin 40 mg PO QPM 03/20/13 Multivitamin [Multivitamins] 1 each PO DAILY 03/20/13 metFORMIN [Glucophage] 1,000 mg PO BIDWM 03/20/13 Fenofibrate 160 mg PO DAILY 06/10/14 Aspirin 81 mg PO DAILY 10/04/16 HYDROcodone/ACET 10/325 [[place] 10 mg/325 mg] 1 tab PO QID 10/04/16 Insulin Aspart [Novolog Flexpen] 40 unit SUBQ TIDWM 10/04/16 Furosemide [Lasix] 80 mg PO DAILY 05/27/17 Gabapentin 100 - 200 mg PO QPM 03/11/17 Icosapent Ethyl [Vascepa] 2 gm PO BID 03/12/17 Sertraline HCl [Zoloft] 300 mg PO QPM 03/12/17 Objective - Vital Signs/Intake & Output Reviewed Vital Signs: Yes Vital Signs: Vital Signs x48h Temp Pulse Resp BP Pulse Ox 04/16/17 08:24 36.9 C 78 18 114/73 98 Intake & Output: Intake & Output 04/13/17 04/14/17 04/15/17 04/16/17 23:59 23:59 23:59 23:59 Intake Total 2280 2936 2170 640 Output Total 2750 4170 9355 1550 Balance -470 -1234 -1625 -910 - Objective General Appearance: positive: No acute distress, Alert ENT: positive: No signs of dehydration Respiratory: positive: Chest non-tender, No respiratory distress, Breath sounds nml (coarse centrally, diminsihed bases), Other (TRACH with collar) Cardiovascular: positive: Regular rate & rhythm Peripheral Pulses: 1+ Dorsalis pedis (R), 1+ Dorsalis pedis (L), 2+ Radial (R), 2+ Radial (L) Abdomen: positive: Non-tender (obese, soft, active bowel sounds) Skin: positive: Color nml, Warm, Dry, Decubitus (right posterior heel, unstageable due to eschar) Extremities: positive: Nml appearance (obese), Other. 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 Now with inability to manage ADLs due to NWB status, he does have PURA, previously lived w/ elderly mother. -Awaiting placement -NWB until ortho deems ok -Lovenox for DVT prophylaxis (2) Atrial fibrillation w/ Hx of RVR Impression: February 2017 [facility] admission afib RVR/ >>> reverted to NSR, this admit Rate controlled on 200 mg daily Amiodarone CVA prevention: no anticoagulation 2/2 previous SAH -Monitor for RVR -Referral to cardiology for evaluation for ablation given [id number] score 4 (1htn,1dm,2cva) (3) Hypercapnia/ metabolic alkalosis Impression: Etiology: obesity hypoventilation syndorme. Chronic; stable , awake, alert. Hypochloremia - improving, 88 on admit, now 94. Anion gap WNL -Monitor for sedation (5) Diabetes type 2, uncontrolled with right heel ulcer Impression: T2DM on metformin + lantus + nutritional insulin at home, A1c improved from 11.6 -->9.2%. Resumed metformin on 04/12 as no anticipation of needing IV contrast study and previous LORENA had resolved. -Continue metformin bid -Increase Lantus back to 80u qHS (home dose) -Novolog 38u with meals -Novolog high dose SSI for correction -Continue gabapentin for neuropathy Right heel ulcer, black, dry, thick dry skin is cracking/peeling. -Wound RN to eval on monday -Cover to prevent shearing (6) HTN (hypertension), benign Impression: On LIZA, CCB, lasix at home. Normotensive. CCB stopped, now on amiodarone for afib rate control. LIZA for renal protection 2/2 DM, dose reduced 2/2 SBP in 100s -Continue lisinopril 2.5mg daily -Continue amiodarone 200mg daily -Monitor BP routinely and titrate meds as needed Resolved Issues: (7) LORENA (acute kidney injury) Impression: No hx of CKD, baseline creat 1.0. Was 1.3 on 03/13 - improved with then up again to 1.4 from 03/19-03/27. Now 1.1. -Avoid nephrotoxic agents (8) Constipation: Impression: Patient goal, q3d BM. -Continue daily miralax (9)Health care acquired pneumonia Impression: Admitting diagnosis, risks include in/out of hospital that week, CT chest with consolidation in the lingula and LLL, Bilat LL atelectasis. Now s/p 10 days of zosyn and levaquin. Blood cultures negative. CXR on 03/16 with no focal consolidation. Stopped florastor 04/11. (10) Upper molar dental caries Impression: Recommended warm salt water rinses after meals and bedtime -needs to see dentist at some point after done SNF -if infection occurs consider stating augmentin Patient is currently pending placement, otherwise medically stable. Qualifiers: Encounter type: subsequent encounter Fracture type: closed
[2017-04-16] MEDS: SERTRALINE 50 MG TABLET PO SCH (20:48)
[2017-04-16] MEDS: GABAPENTIN 100 MG CAPSULE PO SCH (20:48)
[2017-04-16] MEDS: ATORVASTATIN 10 MG TABLET PO SCH (20:48)
[2017-04-16] MEDS: INSULIN GLARGINE 300 UNIT/3 ML PEN SUBQ SCH (20:49)
[2017-04-17] MEDS: HYDROcod/ACETAM 10 MG/325 MG TABLET PO PRN ×3 (07:00→19:29)
[2017-04-17] MEDS: INSULIN ASPART 300 UNIT/3 ML PEN SUBQ SCH ×7 (10:31→20:43)
[2017-04-17] MEDS: metFORMIN 500 MG TABLET PO SCH ×2 (10:33→16:45)
[2017-04-17] MEDS: MULTIVITAMIN TABLET PO SCH (10:33)
[2017-04-17] MEDS: ASPIRIN EC 81 MG TABLET PO SCH (10:34)
[2017-04-17] MEDS: DOCUSATE SODIUM 250 MG CAPSULE PO SCH (10:34)
[2017-04-17] MEDS: AMIODARONE 200 MG TABLET PO SCH (10:34)
[2017-04-17] MEDS: ENOXAPARIN 40 MG/0.4 ML SYRINGE SUBQ SCH (10:35)
[2017-04-17] MEDS: FUROSEMIDE 40 MG TABLET PO SCH ×2 (10:35→13:27)
[2017-04-17] MEDS: FENOFIBRATE 48 MG TABLET PO SCH (10:35)
[2017-04-17] MEDS: OMEGA-3 ACID ETHYL ESTERS 1 GM CAPSULE PO SCH ×2 (10:37→20:42)
[2017-04-17] MEDS: MUPIROCIN 2% OINT 22 GM TUBE TOP SCH ×2 (10:37→20:42)
[2017-04-17] MEDS: NYSTATIN POWDER 15 GM TOP SCH ×2 (10:37→20:41)
[2017-04-17] MEDS: SENNA 8.6 MG TABLET PO SCH (10:38)
[2017-04-17] MEDS: POLYETHYLENE GLYCOL 3350 17 GM PACKET PO SCH (10:38)
[2017-04-17] MEDS: LISINOPRIL 5 MG TABLET PO SCH (10:39)
--- NOTE | 2017-04-17 11:30 | PROVIDER PROGRESS NOTE ---
Subjective - Prog Note Date Prog Note Date: 04/17/17 Prog Note Time: 11:25 - Subjective Pt reports feeling: No change Subjective: Patient sitting up in bed, no distress, no complaints. Denies SOB, no nausea or constipation. No new pain, chronic back pain at baseline. Current Medications - Current Medications Current Medications: Active Medications Acetaminophen/Hydrocodone Bitart (Borden 10 Mg/325 Mg) 1 tab PO Q4HR PRN PRN Reason: PAIN Last Admin: 04/13/17 22:22 Dose: 1 tab Acetaminophen/Hydrocodone Bitart (Borden 10 Mg/325 Mg) 2 tab PO Q4HR PRN PRN Reason: PAIN Last Admin: 04/17/17 07:00 Dose: 2 tab Amiodarone HCl (Pacerone) 200 mg PO DAILY [facility] Last Admin: 04/17/17 10:34 Dose: 200 mg Aspirin (Ecotrin) 81 mg PO DAILY [facility] Last Admin: 04/17/17 10:34 Dose: 81 mg Atorvastatin Calcium (Lipitor) 10 mg PO QPM [facility] Last Admin: 04/16/17 20:48 Dose: 10 mg Baclofen (Lioresal) 10 mg PO TID PRN PRN Reason: Cramp Last Admin: 03/30/17 21:16 Dose: 10 mg Docusate Sodium (Colace 250mg Capsule) 250 - 500 mg PO DAILY [facility] Last Admin: 04/17/17 10:34 Dose: 250 mg Enoxaparin Sodium (Lovenox) 40 mg SUBQ DAILY [facility] Last Admin: 04/17/17 10:35 Dose: 40 mg Fenofibrate (Tricor) 144 mg PO DAILY [facility] Last Admin: 04/17/17 10:35 Dose: 144 mg Furosemide (Lasix) 80 mg PO DAILY [facility] Last Admin: 04/17/17 10:35 Dose: 80 mg Furosemide (Lasix) 40 mg PO DAILY@1400 [facility] Last Admin: 04/16/17 14:08 Dose: 40 mg Gabapentin (Neurontin) 200 mg PO QPM [facility] Last Admin: 04/16/17 20:48 Dose: 200 mg Insulin Aspart (Novolog) 3 - 11 unit SUBQ 0800,1200,1700,2100 [facility] PRN Reason: Protocol Last Admin: 04/17/17 10:31 Dose: 7 unit Insulin Aspart (Novolog) 40 unit SUBQ TIDWM [facility] PRN Reason: Protocol Insulin Glargine (Lantus Solostar) 80 unit SUBQ QPM [facility] Last Admin: 04/16/17 20:49 Dose: 80 unit Lisinopril (Zestril) 2.5 mg PO DAILY [facility] Last Admin: 04/17/17 10:39 Dose: 2.5 mg Metformin HCl (Glucophage) 1,000 mg PO BIDWM [facility] Last Admin: 04/17/17 10:33 Dose: 1,000 mg Multivitamins (Theragran) 1 tab PO DAILYWM [facility] Last Admin: 04/17/17 10:33 Dose: 1 tab Mupirocin (Bactroban 2% Oint) 1 applic TOP BID [facility] Last Admin: 04/17/17 10:37 Dose: 1 applic Nystatin (Nystop) 1 applic TOP BID [facility] Last Admin: 04/17/17 10:37 Dose: 1 applic Hvyio-1-Ckeo Ethyl Esters (Lovaza) 2 gm PO BID [facility] Last Admin: 04/17/17 10:37 Dose: 2 gm Polyethylene Glycol (Miralax) 17 gm PO DAILY [facility] Last Admin: 04/17/17 10:38 Dose: 17 gm Senna (Senokot) 8.6 - 17.2 mg PO DAILY [facility] Last Admin: 04/17/17 10:38 Dose: 8.6 mg Sertraline HCl (Zoloft) 300 mg PO QPM [facility] Last Admin: 04/16/17 20:48 Dose: 300 mg Insulin Glargine,Hum.rec.anlog [Lantus Solostar] 76 unit SQ QPM 03/20/13 Lisinopril 10 mg PO BID 03/20/13 Lovastatin 40 mg PO QPM 03/20/13 Multivitamin [Multivitamins] 1 each PO DAILY 03/20/13 metFORMIN [Glucophage] 1,000 mg PO BIDWM 03/20/13 Fenofibrate 160 mg PO DAILY 06/10/14 Aspirin 81 mg PO DAILY 10/04/16 HYDROcodone/ACET 10/325 [Borden 10 mg/325 mg] 1 tab PO QID 10/04/16 Insulin Aspart [Novolog Flexpen] 40 unit SUBQ TIDWM 10/04/16 Furosemide [Lasix] 80 mg PO DAILY 03/11/17 Gabapentin 100 - 200 mg PO QPM 03/11/17 Icosapent Ethyl [Vascepa] 2 gm PO BID 03/12/17 Sertraline HCl [Zoloft] 300 mg PO QPM 03/12/17 Objective - Vital Signs/Intake & Output Reviewed Vital Signs: Yes Vital Signs: Vital Signs x48h Temp Pulse Resp BP Pulse Ox 04/17/17 08:22 36.5 C 81 18 108/70 97 Intake & Output: Intake & Output 04/14/17 04/15/17 04/16/17 04/17/17 23:59 23:59 23:59 23:59 Intake Total 2936 2170 3915 690 Output Total 4170 3795 5920 975 Balance -1234 -1625 -2005 -285 - Objective General Appearance: positive: No acute distress, Alert Eyes Bilateral: positive: PERRL ENT: positive: Other (TRACH with collar) Respiratory: positive: Chest non-tender, No respiratory distress, Breath sounds nml (diminsished bases) Cardiovascular: positive: Regular rate & rhythm (distant heart sounds) Peripheral Pulses: 2+ Radial (R), 2+ Radial (L) Abdomen: positive: Non-tender (obese, soft, active bowel sounds) Skin: positive: Warm, Dry, Other (right posterior heel wound, debrided by wound RN, iodoform dressing intact) Neurologic/Psychiatric: positive: Oriented x3, Mood/affect nml. 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 Now with inability to manage ADLs due to NWB status, he does have PURA, previously lived w/ elderly mother. -Awaiting placement -NWB until ortho deems ok -Lovenox for DVT prophylaxis (2) Atrial fibrillation w/ Hx of RVR Impression: February 2017 [facility] admission afib RVR/ >>> reverted to NSR, this admit Rate controlled on 200 mg daily Amiodarone CVA prevention: no anticoagulation 2/2 previous SAH -Continue amiodarone -Monitor for RVR -Referral to cardiology for evaluation for ablation given [id number] score 4 (1htn,1dm,2cva) (3) Hypercapnia/ metabolic alkalosis Impression: Etiology: obesity hypoventilation syndorme. Chronic; stable , awake, alert. Hypochloremia - improving, 88 on admit, now 94. Anion gap WNL -Monitor for sedation (5) Diabetes type 2, uncontrolled with right heel ulcer Impression: T2DM on metformin + lantus + nutritional insulin at home, A1c improved from 11.6 -->9.2%. Resumed metformin on 04/12 as no anticipation of needing IV contrast study and previous LORENA had resolved. -Continue metformin bid -Lantus back to 80u qHS (home dose) -Novolog 40u with meals -Novolog high dose SSI for correction -Continue gabapentin for neuropathy Right heel ulcer, Debrideded, covered with iodoform guaze and dressing -Wound care instructions per Wound RN -Float heels (6) HTN (hypertension), benign Impression: On LIZA, CCB, lasix at home. Normotensive. CCB stopped, now on amiodarone for afib rate control. LIZA for renal protection 2/2 DM, dose reduced 2/2 SBP in 100s -Continue lisinopril 2.5mg daily -Continue amiodarone 200mg daily -Monitor BP routinely and titrate meds as needed Resolved Issues: (7) LORENA (acute kidney injury) Impression: No hx of CKD, baseline creat 1.0. Was 1.3 on 03/13 - improved with then up again to 1.4 from 03/19-03/27. Now 1.1. -Avoid nephrotoxic agents (8) Constipation: Impression: Patient goal, q3d BM. -Continue daily miralax (9)Health care acquired pneumonia Impression: Admitting diagnosis, risks include in/out of hospital that week, CT chest with consolidation in the lingula and LLL, Bilat LL atelectasis. Now s/p 10 days of zosyn and levaquin. Blood cultures negative. CXR on 03/16 with no focal consolidation. Stopped florastor 6/27. (10) Upper molar dental caries Impression: Recommended warm salt water rinses after meals and bedtime -needs to see dentist at some point after done SNF -if infection occurs consider stating augmentin Patient is currently pending placement, otherwise medically stable. Qualifiers: Encounter type: subsequent encounter Fracture type: closed
[2017-04-17] MEDS: ATORVASTATIN 10 MG TABLET PO SCH (20:41)
[2017-04-17] MEDS: SERTRALINE 50 MG TABLET PO SCH (20:42)
[2017-04-17] MEDS: INSULIN GLARGINE 300 UNIT/3 ML PEN SUBQ SCH (20:43)
[2017-04-17] MEDS: GABAPENTIN 100 MG CAPSULE PO SCH (20:47)
[2017-04-18] MEDS: HYDROcod/ACETAM 10 MG/325 MG TABLET PO PRN ×4 (00:10→21:11)
[2017-04-18] MEDS: INSULIN ASPART 300 UNIT/3 ML PEN SUBQ SCH ×7 (09:03→21:12)
[2017-04-18] MEDS: metFORMIN 500 MG TABLET PO SCH ×2 (09:05→16:57)
[2017-04-18] MEDS: AMIODARONE 200 MG TABLET PO SCH (09:06)
[2017-04-18] MEDS: POLYETHYLENE GLYCOL 3350 17 GM PACKET PO SCH (09:06)
[2017-04-18] MEDS: FUROSEMIDE 40 MG TABLET PO SCH ×2 (09:06→15:52)
[2017-04-18] MEDS: LISINOPRIL 5 MG TABLET PO SCH (09:06)
[2017-04-18] MEDS: ENOXAPARIN 40 MG/0.4 ML SYRINGE SUBQ SCH (09:06)
[2017-04-18] MEDS: DOCUSATE SODIUM 250 MG CAPSULE PO SCH (09:07)
[2017-04-18] MEDS: NYSTATIN POWDER 15 GM TOP SCH ×2 (09:07→21:13)
[2017-04-18] MEDS: OMEGA-3 ACID ETHYL ESTERS 1 GM CAPSULE PO SCH ×2 (09:07→21:11)
[2017-04-18] MEDS: MULTIVITAMIN TABLET PO SCH (09:07)
[2017-04-18] MEDS: MUPIROCIN 2% OINT 22 GM TUBE TOP SCH ×2 (09:07→21:13)
[2017-04-18] MEDS: ASPIRIN EC 81 MG TABLET PO SCH (09:07)
[2017-04-18] MEDS: FENOFIBRATE 48 MG TABLET PO SCH (09:07)
[2017-04-18] MEDS: SENNA 8.6 MG TABLET PO SCH (09:07)
--- NOTE | 2017-04-18 12:09 | PROVIDER PROGRESS NOTE ---
Subjective - Prog Note Date Prog Note Date: 04/18/17 Prog Note Time: 12:07 - Subjective Pt reports feeling: No change (pt comfortablly sit to eat his breakfast, no complaints) Objective - Vital Signs/Intake & Output Vital Signs: Vital Signs x48h Temp Pulse Resp BP Pulse Ox 04/18/17 08:09 36.6 C 82 16 109/79 99 Intake & Output: Intake & Output 04/15/17 04/16/17 04/17/17 04/18/17 23:59 23:59 23:59 23:59 Intake Total 2170 3915 3990 606 Output Total 3795 5920 5370 1950 [facility] -1625 -2005 -1380 -1344 - Objective General Appearance: positive: No acute distress, Alert. negative: Mild distress , Moderate distress, Severe distress, Anxious, Lethargic, Other Eyes Bilateral: positive: Normal inspection, PERRL. negative: EOMI, No lid inflammation, Conjunctivae nml, No scleral icterus, Other Neck: positive: Nml inspection, Trachea midline. negative: Thyroid nml, No JVD , Thyromegaly, Lymphadenopathy (R), Lymphadenopathy (L), Stiff neck, Kernig's sign, Brudzinski's sign, Carotid bruit, Swelling/bruising, Tracheal deviation, Other Respiratory: positive: Chest non-tender, No respiratory distress, Breath sounds nml. negative: Wheezes, Rales, Rhonchi, Other Cardiovascular: positive: Regular rate & rhythm, No murmur. negative: No gallop , Irregularly irregular, Extrasystoles, Tachycardia, Bradycardia, PMI displaced laterally, JVD present, Systolic murmur, Diastolic murmur, Gallop/S3, Gallop/S4 , Friction rub, Decreased pulse(s), Crepitus, Other Peripheral Pulses: 2+ Radial (R), 2+ Radial (L), 2+ Dorsalis pedis (R), 2+ Dorsalis pedis (L) Abdomen: positive: Non-tender, Nml bowel sounds. negative: No organomegaly, No distention, Tenderness, Guarding, Rebound, Hepatomegaly, Splenomegaly, Mass, Abnml bowel sounds, Bruit, Other Back: positive: Nml inspection. negative: CVA tenderness (R), CVA tenderness (L ), Other Skin: positive: Color nml, Warm. negative: No rash, Dry, Cyanosis, Diaphoresis , Pallor, Skin rash, Decubitus, Laceration (cm), Puncture wound, Embolic lesions , Other Extremities: positive: Non-tender, Nml appearance. negative: Full ROM, No pedal edema, Pedal edema, Calf tenderness, Joint swelling, Elda's sign/cords, Other Neurologic/Psychiatric: positive: Oriented x3, CN's nml (2-12), Motor nml, Sensation nml, Mood/affect nml. negative: Disoriented to person, Disoriented to place, Disoriented to time, Weakness, Sensory loss, Facial droop, Slurred/ abnml speech, Depressed mood/affect, Other - Lab Results Fish Bones: 04/10/17 05:15 04/10/17 05:15 Other Labs: Lab Results x24hrs 04/18/17 04/18/17 04/17/17 Range/Units 11:01 07:46 20:05 POC Whole Bld Glucose 267 H 214 H 99 (70 - 100) mg/dL 04/17/17 04/17/17 Range/Units 16:27 11:23 POC Whole Bld Glucose 144 H 282 H (70 - 100) mg/dL Assessment/Plan - Problem List (1) Fracture of distal end of tibia Impression: - Problem List review and agree colleague assessment and plan additionally encourage change position as tolerated educate pt the sign and symptoms of hypoglycemia, and rapidly report to nurse, follow up the wound nurse recommendation for healing his injury. 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 Now with inability to manage ADLs due to NWB status, he does have PURA, previously lived w/ elderly mother. -Awaiting placement -NWB until ortho deems ok -Lovenox for DVT prophylaxis (2) Atrial fibrillation w/ Hx of RVR Impression: February 2017 [facility] admission afib RVR/ >>> reverted to NSR, this admit Rate controlled on 200 mg daily Amiodarone CVA prevention: no anticoagulation 2/2 previous SAH -Continue amiodarone -Monitor for RVR -Referral to cardiology for evaluation for ablation given [id number] score 4 (1htn,1dm,2cva) (3) Hypercapnia/ metabolic alkalosis Impression: Etiology: obesity hypoventilation syndorme. Chronic; stable , awake, alert. Hypochloremia - improving, 88 on admit, now 94. Anion gap WNL -Monitor for sedation (5) Diabetes type 2, uncontrolled with right heel ulcer Impression: T2DM on metformin + lantus + nutritional insulin at home, A1c improved from 11.6 -->9.2%. Resumed metformin on 04/12 as no anticipation of needing IV contrast study and previous LORENA had resolved. -Continue metformin bid -Lantus back to 80u qHS (home dose) -Novolog 40u with meals -Novolog high dose SSI for correction -Continue gabapentin for neuropathy Right heel ulcer, Debrideded, covered with iodoform guaze and dressing -Wound care instructions per Wound RN -Float heels (6) HTN (hypertension), benign Impression: On LIZA, CCB, lasix at home. Normotensive. CCB stopped, now on amiodarone for afib rate control. LIZA for renal protection 2/2 DM, dose reduced 2/2 SBP in 100s -Continue lisinopril 2.5mg daily -Continue amiodarone 200mg daily -Monitor BP routinely and titrate meds as needed Resolved Issues: (7) LORENA (acute kidney injury) Impression: No hx of CKD, baseline creat 1.0. Was 1.3 on 03/13 - improved with then up again to 1.4 from 03/19-03/27. Now 1.1. -Avoid nephrotoxic agents (8) Constipation: Impression: Patient goal, q3d BM. -Continue daily miralax (9)Health care acquired pneumonia Impression: Admitting diagnosis, risks include in/out of hospital that week, CT chest with consolidation in the lingula and LLL, Bilat LL atelectasis. Now s/p 10 days of zosyn and levaquin. Blood cultures negative. CXR on 03/16 with no focal consolidation. Stopped florastor 04/11. (10) Upper molar dental caries Impression: Recommended warm salt water rinses after meals and bedtime -needs to see dentist at some point after done SNF -if infection occurs consider stating augmentin Qualifiers: Encounter type: subsequent encounter Fracture type: closed
[2017-04-18] MEDS: SERTRALINE 50 MG TABLET PO SCH (21:11)
[2017-04-18] MEDS: ATORVASTATIN 10 MG TABLET PO SCH (21:11)
[2017-04-18] MEDS: GABAPENTIN 100 MG CAPSULE PO SCH (21:11)
[2017-04-18] MEDS: INSULIN GLARGINE 300 UNIT/3 ML PEN SUBQ SCH (21:12)
[2017-04-19] MEDS: HYDROcod/ACETAM 10 MG/325 MG TABLET PO PRN ×3 (05:56→19:32)
[2017-04-19] MEDS: INSULIN ASPART 300 UNIT/3 ML PEN SUBQ SCH ×7 (08:15→21:59)
[2017-04-19] MEDS: ENOXAPARIN 40 MG/0.4 ML SYRINGE SUBQ SCH (08:17)
[2017-04-19] MEDS: POLYETHYLENE GLYCOL 3350 17 GM PACKET PO SCH (08:18)
[2017-04-19] MEDS: metFORMIN 500 MG TABLET PO SCH ×2 (08:19→17:46)
[2017-04-19] MEDS: DOCUSATE SODIUM 250 MG CAPSULE PO SCH (08:19)
[2017-04-19] MEDS: SENNA 8.6 MG TABLET PO SCH (08:19)
[2017-04-19] MEDS: OMEGA-3 ACID ETHYL ESTERS 1 GM CAPSULE PO SCH ×2 (08:19→21:54)
[2017-04-19] MEDS: FENOFIBRATE 48 MG TABLET PO SCH (08:19)
[2017-04-19] MEDS: ASPIRIN EC 81 MG TABLET PO SCH (08:20)
[2017-04-19] MEDS: AMIODARONE 200 MG TABLET PO SCH (08:20)
[2017-04-19] MEDS: FUROSEMIDE 40 MG TABLET PO SCH ×2 (08:20→13:57)
[2017-04-19] MEDS: LISINOPRIL 5 MG TABLET PO SCH (08:20)
[2017-04-19] MEDS: MULTIVITAMIN TABLET PO SCH (08:20)
[2017-04-19] MEDS: MUPIROCIN 2% OINT 22 GM TUBE TOP SCH ×2 (08:23→22:14)
[2017-04-19] MEDS: NYSTATIN POWDER 15 GM TOP SCH ×2 (08:24→22:10)
--- NOTE | 2017-04-19 12:31 | PROVIDER PROGRESS NOTE ---
Subjective - Prog Note Date Prog Note Date: 04/19/17 Prog Note Time: 12:29 - Subjective Pt reports feeling: No change (pt does not have any complaints. No change) Objective - Vital Signs/Intake & Output Vital Signs: Vital Signs x48h Temp Pulse Resp BP Pulse Ox 04/19/17 07:50 36.7 C 85 16 105/64 96 Intake & Output: Intake & Output 04/16/17 04/17/17 04/18/17 04/19/17 23:59 23:59 23:59 23:59 Intake Total 3915 3990 2646 800 Output Total 5920 5370 4910 2550 Balance -2004 -1380 -2264 -1750 - Objective General Appearance: positive: No acute distress, Alert. negative: Mild distress , Moderate distress, Severe distress, Anxious, Lethargic, Other Eyes Bilateral: positive: Normal inspection, PERRL. negative: EOMI, No lid inflammation, Conjunctivae nml, No scleral icterus, Other ENT: positive: ENT inspection nml, No signs of dehydration. negative: Pharynx nml, Purulent nasal drainage, Pharyngeal erythema, Oral lesions, Dry mucous membranes, Other Neck: positive: Nml inspection, Trachea midline. negative: Thyroid nml, No JVD , Thyromegaly, Lymphadenopathy (R), Lymphadenopathy (L), Stiff neck, Kernig's sign, Brudzinski's sign, Carotid bruit, Swelling/bruising, Tracheal deviation, Other Respiratory: positive: Chest non-tender, No respiratory distress, Breath sounds nml. negative: Wheezes, Rales, Rhonchi, Other Cardiovascular: positive: Regular rate & rhythm, No murmur. negative: No gallop , Irregularly irregular, Extrasystoles, Tachycardia, Bradycardia, PMI displaced laterally, JVD present, Systolic murmur, Diastolic murmur, Gallop/S3, Gallop/S4 , Friction rub, Decreased pulse(s), Crepitus, Other Peripheral Pulses: 2+ Radial (R), 2+ Radial (L), 2+ Dorsalis pedis (R), 2+ Dorsalis pedis (L) Abdomen: positive: Non-tender, Nml bowel sounds. negative: No organomegaly, No distention, Tenderness, Guarding, Rebound, Hepatomegaly, Splenomegaly, Mass, Abnml bowel sounds, Bruit, Other Back: positive: Nml inspection. negative: CVA tenderness (R), CVA tenderness (L ), Other Skin: positive: Color nml, Warm. negative: No rash, Dry, Cyanosis, Diaphoresis , Pallor, Skin rash, Decubitus, Laceration (cm), Puncture wound, Embolic lesions , Other Extremities: positive: Non-tender, Full ROM. negative: Nml appearance, No pedal edema, Pedal edema, Calf tenderness, Joint swelling, Elda's sign/cords, Other Neurologic/Psychiatric: positive: Oriented x3, CN's nml (2-12), Motor nml, Sensation nml, Mood/affect nml. negative: Disoriented to person, Disoriented to place, Disoriented to time, Weakness, Sensory loss, Facial droop, Slurred/ abnml speech, Depressed mood/affect, Other - Lab Results Fish Bones: 04/10/17 05:15 04/10/17 05:15 Other Labs: Lab Results x24hrs 04/19/17 04/19/17 04/18/17 Range/Units 11:25 07:49 20:41 POC Whole Bld Glucose 269 H 236 H 138 H (70 - 100) mg/dL 04/18/17 Range/Units 16:46 POC Whole Bld Glucose 140 H (70 - 100) mg/dL Assessment/Plan - Problem List (1) Fracture of distal end of tibia Impression: vital and lab reviewed, stable. pt is no complaints, basically wait for replacement Qualifiers: Encounter type: subsequent encounter Fracture type: closed
[2017-04-19] MEDS: INSULIN GLARGINE 300 UNIT/3 ML PEN SUBQ SCH (21:48)
[2017-04-19] MEDS: GABAPENTIN 100 MG CAPSULE PO SCH (21:55)
[2017-04-19] MEDS: SERTRALINE 50 MG TABLET PO SCH (21:56)
[2017-04-19] MEDS: ATORVASTATIN 10 MG TABLET PO SCH (21:56)
[2017-04-19] MEDS: NYSTATIN CREAM 15 GM TUBE TOP SCH (22:09)
[2017-04-20] MEDS: HYDROcod/ACETAM 10 MG/325 MG TABLET PO PRN ×4 (03:19→21:08)
[2017-04-20] MEDS: INSULIN ASPART 300 UNIT/3 ML PEN SUBQ SCH ×7 (08:13→21:10)
[2017-04-20] MEDS: metFORMIN 500 MG TABLET PO SCH ×2 (09:22→16:54)
[2017-04-20] MEDS: LISINOPRIL 5 MG TABLET PO SCH (09:47)
[2017-04-20] MEDS: MULTIVITAMIN TABLET PO SCH (10:11)
[2017-04-20] MEDS: AMIODARONE 200 MG TABLET PO SCH (10:12)
[2017-04-20] MEDS: DOCUSATE SODIUM 250 MG CAPSULE PO SCH (10:13)
[2017-04-20] MEDS: ASPIRIN EC 81 MG TABLET PO SCH (10:13)
[2017-04-20] MEDS: FENOFIBRATE 48 MG TABLET PO SCH (10:14)
[2017-04-20] MEDS: FUROSEMIDE 40 MG TABLET PO SCH ×2 (10:14→14:24)
[2017-04-20] MEDS: SENNA 8.6 MG TABLET PO SCH (10:16)
[2017-04-20] MEDS: ENOXAPARIN 40 MG/0.4 ML SYRINGE SUBQ SCH (10:17)
[2017-04-20] MEDS: POLYETHYLENE GLYCOL 3350 17 GM PACKET PO SCH (10:26)
[2017-04-20] MEDS: OMEGA-3 ACID ETHYL ESTERS 1 GM CAPSULE PO SCH ×2 (11:55→21:09)
--- NOTE | 2017-04-20 12:16 | PROVIDER PROGRESS NOTE ---
Subjective - Subjective Pt reports feeling: No change Subjective: no changing, no any new complaints. Objective - Vital Signs/Intake & Output Vital Signs: Vital Signs x48h Temp Pulse Resp BP Pulse Ox 04/20/17 08:01 36.7 C 83 16 108/69 99 Intake & Output: Intake & Output 04/17/17 04/18/17 04/19/17 04/20/17 23:59 23:59 23:59 23:59 Intake Total 3990 2646 2190 710 Output Total 5370 4910 4900 2200 Balance -1380 -2264 -2710 -1490 - Objective General Appearance: positive: No acute distress, Alert. negative: Mild distress , Moderate distress, Severe distress, Anxious, Lethargic, Other Eyes Bilateral: positive: Normal inspection, PERRL. negative: EOMI, No lid inflammation, Conjunctivae nml, No scleral icterus, Other ENT: positive: ENT inspection nml, Pharynx nml, No signs of dehydration. negative: Purulent nasal drainage, Pharyngeal erythema, Oral lesions, Dry mucous membranes, Other Neck: positive: Nml inspection, Trachea midline. negative: Thyroid nml, No JVD , Thyromegaly, Lymphadenopathy (R), Lymphadenopathy (L), Stiff neck, Kernig's sign, Brudzinski's sign, Carotid bruit, Swelling/bruising, Tracheal deviation, Other Respiratory: positive: Chest non-tender, No respiratory distress, Breath sounds nml. negative: Wheezes, Rales, Rhonchi, Other Cardiovascular: positive: Regular rate & rhythm, No murmur. negative: No gallop , Irregularly irregular, Extrasystoles, Tachycardia, Bradycardia, PMI displaced laterally, JVD present, Systolic murmur, Diastolic murmur, Gallop/S3, Gallop/S4 , Friction rub, Decreased pulse(s), Crepitus, Other Peripheral Pulses: 2+ Radial (R), 2+ Radial (L), 2+ Dorsalis pedis (R), 2+ Dorsalis pedis (L) Abdomen: positive: Non-tender, Nml bowel sounds. negative: No organomegaly, No distention, Tenderness, Guarding, Rebound, Hepatomegaly, Splenomegaly, Mass, Abnml bowel sounds, Bruit, Other Back: positive: Nml inspection. negative: CVA tenderness (R), CVA tenderness (L ), Other Skin: positive: Color nml, Warm. negative: No rash, Dry, Cyanosis, Diaphoresis , Pallor, Skin rash, Decubitus, Laceration (cm), Puncture wound, Embolic lesions , Other Extremities: positive: Non-tender, Nml appearance. negative: Full ROM, No pedal edema, Pedal edema, Calf tenderness, Joint swelling, Elda's sign/cords, Other Neurologic/Psychiatric: positive: Oriented x3, CN's nml (2-12), Sensation nml, Mood/affect nml. negative: Motor nml, Disoriented to person, Disoriented to place, Disoriented to time, Weakness, Sensory loss, Facial droop, Slurred/abnml speech, Depressed mood/affect, Other - Lab Results Fish Bones: 04/10/17 05:15 04/10/17 05:15 Other Labs: Lab Results x24hrs 04/20/17 04/20/17 Range/Units 10:57 07:29 POC Whole Bld Glucose 255 H 211 H (70 - 100) mg/dL Assessment/Plan - Problem List (1) Fracture of distal end of tibia Impression: (1) Fracture of distal end of tibia Impression: vital and lab reviewed. the main goal is transition pt to other SNF or other facility which will reduce the risk pt could obtain from acute hospital. 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 Now with inability to manage ADLs due to NWB status, he does have PURA, previously lived w/ elderly mother. -Awaiting placement -NWB until ortho deems ok -Lovenox for DVT prophylaxis (2) Atrial fibrillation w/ Hx of RVR Impression: February 2017 [facility] admission afib RVR/ >>> reverted to NSR, this admit Rate controlled on 200 mg daily Amiodarone CVA prevention: no anticoagulation 2/2 previous SAH -Continue amiodarone -Monitor for RVR -Referral to cardiology for evaluation for ablation given [id number] score 4 (1htn,1dm,2cva) (3) Hypercapnia/ metabolic alkalosis Impression: Etiology: obesity hypoventilation syndorme. Chronic; stable , awake, alert. Hypochloremia - improving, 88 on admit, now 94. Anion gap WNL -Monitor for sedation (5) Diabetes type 2, uncontrolled with right heel ulcer Impression: T2DM on metformin + lantus + nutritional insulin at home, A1c improved from 11.6 -->9.2%. Resumed metformin on 04/12 as no anticipation of needing IV contrast study and previous LORENA had resolved. -Continue metformin bid -Lantus back to 80u qHS (home dose) -Novolog 40u with meals -Novolog high dose SSI for correction -Continue gabapentin for neuropathy Right heel ulcer, Debrideded, covered with iodoform guaze and dressing -Wound care instructions per Wound RN -Float heels (6) HTN (hypertension), benign Impression: On LIZA, CCB, lasix at home. Normotensive. CCB stopped, now on amiodarone for afib rate control. LIZA for renal protection 2/2 DM, dose reduced 2/2 SBP in 100s -Continue lisinopril 2.5mg daily -Continue amiodarone 200mg daily -Monitor BP routinely and titrate meds as needed Resolved Issues: (7) LORENA (acute kidney injury) Impression: No hx of CKD, baseline creat 1.0. Was 1.3 on 03/13 - improved with then up again to 1.4 from 03/19-03/27. Now 1.1. -Avoid nephrotoxic agents (8) Constipation: Impression: Patient goal, q3d BM. -Continue daily miralax (9)Health care acquired pneumonia Impression: Admitting diagnosis, risks include in/out of hospital that week, CT chest with consolidation in the lingula and LLL, Bilat LL atelectasis. Now s/p 10 days of zosyn and levaquin. Blood cultures negative. CXR on 03/16 with no focal consolidation. Stopped florastor 04/11. (10) Upper molar dental caries Impression: Recommended warm salt water rinses after meals and bedtime -needs to see dentist at some point after done SNF -if infection occurs consider stating augmentin Qualifiers: Encounter type: subsequent encounter Fracture type: closed
[2017-04-20] MEDS: NYSTATIN CREAM 15 GM TUBE TOP SCH ×2 (12:26→21:11)
[2017-04-20] MEDS: NYSTATIN POWDER 15 GM TOP SCH ×2 (12:26→21:11)
[2017-04-20] MEDS: MUPIROCIN 2% OINT 22 GM TUBE TOP SCH ×2 (14:21→21:11)
[2017-04-20] MEDS: ATORVASTATIN 10 MG TABLET PO SCH (21:09)
[2017-04-20] MEDS: SERTRALINE 50 MG TABLET PO SCH (21:09)
[2017-04-20] MEDS: GABAPENTIN 100 MG CAPSULE PO SCH (21:09)
[2017-04-20] MEDS: INSULIN GLARGINE 300 UNIT/3 ML PEN SUBQ SCH (21:10)
[2017-04-21] MEDS: HYDROcod/ACETAM 10 MG/325 MG TABLET PO PRN ×5 (04:13→22:37)
[2017-04-21] MEDS: MULTIVITAMIN TABLET PO SCH (07:55)
[2017-04-21] MEDS: metFORMIN 500 MG TABLET PO SCH ×2 (07:55→16:47)
[2017-04-21] MEDS: INSULIN ASPART 300 UNIT/3 ML PEN SUBQ SCH ×7 (08:07→21:03)
[2017-04-21] MEDS: ASPIRIN EC 81 MG TABLET PO SCH (08:37)
[2017-04-21] MEDS: AMIODARONE 200 MG TABLET PO SCH (08:37)
[2017-04-21] MEDS: OMEGA-3 ACID ETHYL ESTERS 1 GM CAPSULE PO SCH ×2 (08:37→21:01)
[2017-04-21] MEDS: FENOFIBRATE 48 MG TABLET PO SCH (08:38)
[2017-04-21] MEDS: LISINOPRIL 5 MG TABLET PO SCH (08:38)
[2017-04-21] MEDS: SENNA 8.6 MG TABLET PO SCH (08:39)
[2017-04-21] MEDS: FUROSEMIDE 40 MG TABLET PO SCH ×2 (08:40→13:57)
[2017-04-21] MEDS: DOCUSATE SODIUM 250 MG CAPSULE PO SCH (08:40)
[2017-04-21] MEDS: POLYETHYLENE GLYCOL 3350 17 GM PACKET PO SCH (08:41)
[2017-04-21] MEDS: ENOXAPARIN 40 MG/0.4 ML SYRINGE SUBQ SCH (08:41)
[2017-04-21] MEDS: NYSTATIN CREAM 15 GM TUBE TOP SCH ×2 (08:57→21:09)
[2017-04-21] MEDS: NYSTATIN POWDER 15 GM TOP SCH ×2 (08:57→21:09)
[2017-04-21] MEDS: MUPIROCIN 2% OINT 22 GM TUBE TOP SCH ×2 (13:58→21:09)
--- NOTE | 2017-04-21 14:36 | PROVIDER PROGRESS NOTE ---
Subjective - Prog Note Date Prog Note Date: 04/21/17 Prog Note Time: 14:34 - Subjective Pt reports feeling: No change Objective - Vital Signs/Intake & Output Vital Signs: Vital Signs x48h Temp Pulse Resp BP BP Pulse Ox 04/21/17 14:11 36.6 C 87 16 109/72 99 04/21/17 07:49 36.7 C 88 16 109/68 99 Intake & Output: Intake & Output 04/18/17 04/19/17 04/20/17 04/21/17 23:59 23:59 23:59 23:59 Intake Total 2646 2190 2830 1430 Output Total 4910 4900 4475 3225 [facility] -5594 -2710 -1645 -1795 - Objective General Appearance: positive: No acute distress, Alert. negative: Mild distress , Moderate distress, Severe distress, Anxious, Lethargic, Other Eyes Bilateral: positive: Normal inspection, PERRL. negative: EOMI, No lid inflammation, Conjunctivae nml, No scleral icterus, Other ENT: positive: ENT inspection nml, No signs of dehydration. negative: Pharynx nml, Purulent nasal drainage, Pharyngeal erythema, Oral lesions, Dry mucous membranes, Other Neck: positive: Nml inspection, Trachea midline. negative: Thyroid nml, No JVD , Thyromegaly, Lymphadenopathy (R), Lymphadenopathy (L), Stiff neck, Kernig's sign, Brudzinski's sign, Carotid bruit, Swelling/bruising, Tracheal deviation, Other Respiratory: positive: Chest non-tender, No respiratory distress, Breath sounds nml, Other (trachostomy). negative: Wheezes, Rales, Rhonchi Cardiovascular: positive: Regular rate & rhythm, No murmur. negative: No gallop , Irregularly irregular, Extrasystoles, Tachycardia, Bradycardia, PMI displaced laterally, JVD present, Systolic murmur, Diastolic murmur, Gallop/S3, Gallop/S4 , Friction rub, Decreased pulse(s), Crepitus, Other Peripheral Pulses: 2+ Radial (R), 2+ Radial (L), 2+ Dorsalis pedis (R), 2+ Dorsalis pedis (L) Abdomen: positive: Non-tender, Nml bowel sounds. negative: No organomegaly, No distention, Tenderness, Guarding, Rebound, Hepatomegaly, Splenomegaly, Mass, Abnml bowel sounds, Bruit, Other Back: positive: Nml inspection. negative: CVA tenderness (R), CVA tenderness (L ), Other Skin: positive: Color nml, Warm. negative: No rash, Dry, Cyanosis, Diaphoresis , Pallor, Skin rash, Decubitus, Laceration (cm), Puncture wound, Embolic lesions , Other Extremities: positive: Non-tender. negative: Full ROM, Nml appearance, No pedal edema, Pedal edema, Calf tenderness, Joint swelling, Elda's sign/cords, Other Neurologic/Psychiatric: positive: Oriented x3, CN's nml (2-12), Sensation nml, Mood/affect nml. negative: Motor nml, Disoriented to person, Disoriented to place, Disoriented to time, Weakness, Sensory loss, Facial droop, Slurred/abnml speech, Depressed mood/affect, Other - Lab Results Fish Bones: 04/10/17 05:15 04/10/17 05:15 Other Labs: Lab Results x24hrs 04/21/17 04/20/17 04/20/17 Range/Units 11:41 20:57 16:47 POC Whole Bld Glucose 185 H 120 H 173 H (70 - 100) mg/dL Assessment/Plan - Problem List (1) Fracture of distal end of tibia Impression: pt's vital and lab reviewed. stable. we work hard to try find replacement for pt Qualifiers: Encounter type: subsequent encounter Fracture type: closed
[2017-04-21] MEDS: GABAPENTIN 100 MG CAPSULE PO SCH (21:02)
[2017-04-21] MEDS: SERTRALINE 50 MG TABLET PO SCH (21:02)
[2017-04-21] MEDS: ATORVASTATIN 10 MG TABLET PO SCH (21:03)
[2017-04-21] MEDS: INSULIN GLARGINE 300 UNIT/3 ML PEN SUBQ SCH (21:03)
[2017-04-22] MEDS: HYDROcod/ACETAM 10 MG/325 MG TABLET PO PRN ×5 (02:24→23:43)
[2017-04-22] MEDS: metFORMIN 500 MG TABLET PO SCH ×2 (08:04→15:59)
[2017-04-22] MEDS: DOCUSATE SODIUM 250 MG CAPSULE PO SCH (08:05)
[2017-04-22] MEDS: LISINOPRIL 5 MG TABLET PO SCH (08:05)
[2017-04-22] MEDS: ENOXAPARIN 40 MG/0.4 ML SYRINGE SUBQ SCH (08:05)
[2017-04-22] MEDS: ASPIRIN EC 81 MG TABLET PO SCH (08:05)
[2017-04-22] MEDS: POLYETHYLENE GLYCOL 3350 17 GM PACKET PO SCH (08:05)
[2017-04-22] MEDS: SENNA 8.6 MG TABLET PO SCH (08:06)
[2017-04-22] MEDS: MULTIVITAMIN TABLET PO SCH (08:06)
[2017-04-22] MEDS: FUROSEMIDE 40 MG TABLET PO SCH ×2 (08:06→14:44)
[2017-04-22] MEDS: AMIODARONE 200 MG TABLET PO SCH (08:06)
[2017-04-22] MEDS: FENOFIBRATE 48 MG TABLET PO SCH (08:06)
[2017-04-22] MEDS: MUPIROCIN 2% OINT 22 GM TUBE TOP SCH ×2 (08:07→21:07)
[2017-04-22] MEDS: OMEGA-3 ACID ETHYL ESTERS 1 GM CAPSULE PO SCH ×2 (08:07→21:06)
[2017-04-22] MEDS: NYSTATIN CREAM 15 GM TUBE TOP SCH ×2 (08:08→21:07)
[2017-04-22] MEDS: NYSTATIN POWDER 15 GM TOP SCH ×2 (08:08→21:07)
[2017-04-22] MEDS: INSULIN ASPART 300 UNIT/3 ML PEN SUBQ SCH ×7 (08:08→21:08)
--- NOTE | 2017-04-22 08:55 | PROVIDER PROGRESS NOTE ---
Subjective - Prog Note Date Prog Note Date: 04/22/17 Prog Note Time: 08:53 - Subjective Pt reports feeling: No change Objective - Vital Signs/Intake & Output Vital Signs: Vital Signs x48h Temp Pulse Resp BP BP Pulse Ox 04/22/17 08:02 36.8 C 87 16 114/71 98 04/22/17 01:46 36.4 C L 98 18 113/73 99 Intake & Output: Intake & Output 04/19/17 04/20/17 04/21/17 04/22/17 23:59 23:59 23:59 23:59 Intake Total 2190 2830 3060 900 Output Total 4900 4475 5965 1550 Balance -2780 -1645 -2905 -650 - Objective General Appearance: positive: No acute distress, Alert. negative: Mild distress , Moderate distress, Severe distress, Anxious, Lethargic, Other Eyes Bilateral: positive: Normal inspection, PERRL. negative: EOMI, No lid inflammation, Conjunctivae nml, No scleral icterus, Other ENT: positive: ENT inspection nml, No signs of dehydration. negative: Pharynx nml, Purulent nasal drainage, Pharyngeal erythema, Oral lesions, Dry mucous membranes, Other Neck: positive: Nml inspection, Trachea midline. negative: Thyroid nml, No JVD , Thyromegaly, Lymphadenopathy (R), Lymphadenopathy (L), Stiff neck, Kernig's sign, Brudzinski's sign, Carotid bruit, Swelling/bruising, Tracheal deviation, Other Respiratory: positive: Chest non-tender, No respiratory distress, Breath sounds nml. negative: Wheezes, Rales, Rhonchi, Other Cardiovascular: positive: Regular rate & rhythm, No murmur, No gallop. negative : Irregularly irregular, Extrasystoles, Tachycardia, Bradycardia, PMI displaced laterally, JVD present, Systolic murmur, Diastolic murmur, Gallop/S3, Gallop/S4 , Friction rub, Decreased pulse(s), Crepitus, Other Peripheral Pulses: 2+ Radial (R), 2+ Radial (L), 2+ Dorsalis pedis (R), 2+ Dorsalis pedis (L) Abdomen: positive: Non-tender, Nml bowel sounds. negative: No organomegaly, No distention, Tenderness, Guarding, Rebound, Hepatomegaly, Splenomegaly, Mass, Abnml bowel sounds, Bruit, Other Back: positive: Nml inspection. negative: CVA tenderness (R), CVA tenderness (L ), Other Skin: positive: Color nml, Warm. negative: No rash, Dry, Cyanosis, Diaphoresis , Pallor, Skin rash, Decubitus, Laceration (cm), Puncture wound, Embolic lesions , Other Extremities: positive: Non-tender. negative: Full ROM, Nml appearance, No pedal edema, Pedal edema, Calf tenderness, Joint swelling, Elda's sign/cords, Other Neurologic/Psychiatric: positive: Oriented x3, CN's nml (2-12), Sensation nml, Mood/affect nml. negative: Motor nml, Disoriented to person, Disoriented to place, Disoriented to time, Weakness, Sensory loss, Facial droop, Slurred/abnml speech, Depressed mood/affect, Other - Lab Results Fish Bones: 04/10/17 05:15 04/10/17 05:15 Other Labs: Lab Results x24hrs 04/22/17 04/21/17 04/21/17 Range/Units 07:49 16:31 11:41 POC Whole Bld Glucose 196 H 159 H 185 H (70 - 100) mg/dL Assessment/Plan - Problem List (1) Fracture of distal end of tibia Impression: pt's vital and lab reviewed, stable, keep the same treatment plan, wait for replacement Qualifiers: Encounter type: subsequent encounter Fracture type: closed
[2017-04-22] MEDS: SERTRALINE 50 MG TABLET PO SCH (21:06)
[2017-04-22] MEDS: GABAPENTIN 100 MG CAPSULE PO SCH (21:06)
[2017-04-22] MEDS: ATORVASTATIN 10 MG TABLET PO SCH (21:06)
[2017-04-22] MEDS: INSULIN GLARGINE 300 UNIT/3 ML PEN SUBQ SCH (21:08)
[2017-04-23] MEDS: HYDROcod/ACETAM 10 MG/325 MG TABLET PO PRN ×3 (05:41→20:30)
[2017-04-23] MEDS: OMEGA-3 ACID ETHYL ESTERS 1 GM CAPSULE PO SCH ×2 (08:32→20:29)
[2017-04-23] MEDS: FENOFIBRATE 48 MG TABLET PO SCH (08:32)
[2017-04-23] MEDS: ASPIRIN EC 81 MG TABLET PO SCH (08:32)
[2017-04-23] MEDS: FUROSEMIDE 40 MG TABLET PO SCH ×3 (08:33→13:02)
[2017-04-23] MEDS: metFORMIN 500 MG TABLET PO SCH ×2 (08:33→17:00)
[2017-04-23] MEDS: MULTIVITAMIN TABLET PO SCH (08:33)
[2017-04-23] MEDS: AMIODARONE 200 MG TABLET PO SCH (08:33)
[2017-04-23] MEDS: LISINOPRIL 5 MG TABLET PO SCH (08:34)
[2017-04-23] MEDS: DOCUSATE SODIUM 250 MG CAPSULE PO SCH (08:34)
[2017-04-23] MEDS: ENOXAPARIN 40 MG/0.4 ML SYRINGE SUBQ SCH (08:35)
[2017-04-23] MEDS: SENNA 8.6 MG TABLET PO SCH (08:38)
[2017-04-23] MEDS: POLYETHYLENE GLYCOL 3350 17 GM PACKET PO SCH (08:38)
[2017-04-23] MEDS: INSULIN ASPART 300 UNIT/3 ML PEN SUBQ SCH ×7 (08:39→20:45)
[2017-04-23] MEDS ORDERED: SODIUM CHLORIDE FLUSH 0.9% 10 ML SYRINGE IVP ONE (10:09)
[2017-04-23] MEDS: MUPIROCIN 2% OINT 22 GM TUBE TOP SCH ×2 (11:25→20:31)
[2017-04-23] MEDS: NYSTATIN CREAM 15 GM TUBE TOP SCH ×2 (11:25→20:46)
[2017-04-23] MEDS: NYSTATIN POWDER 15 GM TOP SCH ×2 (11:25→20:45)
--- NOTE | 2017-04-23 11:43 | PROVIDER PROGRESS NOTE ---
Subjective - Prog Note Date Prog Note Date: 04/23/17 Prog Note Time: 11:41 - Subjective Pt reports feeling: No change Subjective: no complaints reported Objective - Vital Signs/Intake & Output Intake & Output: Intake & Output 04/20/17 04/21/17 04/22/17 04/23/17 23:59 23:59 23:59 23:59 Intake Total 2830 3060 3250 2140 Output Total 4473 5948 4075 3575 Balance -0815 -3944 -816 -7277 - Objective General Appearance: positive: No acute distress, Alert. negative: Mild distress , Moderate distress, Severe distress, Anxious, Lethargic, Other Eyes Bilateral: positive: Normal inspection, PERRL, EOMI. negative: No lid inflammation, Conjunctivae nml, No scleral icterus, Other ENT: positive: ENT inspection nml, No signs of dehydration. negative: Pharynx nml, Purulent nasal drainage, Pharyngeal erythema, Oral lesions, Dry mucous membranes, Other Neck: positive: Nml inspection, Thyroid nml, Trachea midline. negative: No JVD , Thyromegaly, Lymphadenopathy (R), Lymphadenopathy (L), Stiff neck, Kernig's sign, Brudzinski's sign, Carotid bruit, Swelling/bruising, Tracheal deviation, Other Respiratory: positive: Chest non-tender, No respiratory distress, Breath sounds nml. negative: Wheezes, Rales, Rhonchi, Other Cardiovascular: positive: Regular rate & rhythm, No murmur, No gallop. negative : Irregularly irregular, Extrasystoles, Tachycardia, Bradycardia, PMI displaced laterally, JVD present, Systolic murmur, Diastolic murmur, Gallop/S3, Gallop/S4 , Friction rub, Decreased pulse(s), Crepitus, Other Peripheral Pulses: 2+ Radial (R), 2+ Radial (L), 2+ Dorsalis pedis (R), 2+ Dorsalis pedis (L) Abdomen: positive: Non-tender, Nml bowel sounds. negative: No organomegaly, No distention, Tenderness, Guarding, Rebound, Hepatomegaly, Splenomegaly, Mass, Abnml bowel sounds, Bruit, Other Back: positive: Nml inspection. negative: CVA tenderness (R), CVA tenderness (L ), Other Skin: positive: Color nml, Warm. negative: No rash, Dry, Cyanosis, Diaphoresis , Pallor, Skin rash, Decubitus, Laceration (cm), Puncture wound, Embolic lesions , Other Extremities: positive: Non-tender, Nml appearance. negative: Full ROM, No pedal edema, Pedal edema, Calf tenderness, Joint swelling, Elda's sign/cords, Other Neurologic/Psychiatric: positive: Oriented x3, CN's nml (2-12), Sensation nml, Mood/affect nml. negative: Motor nml, Disoriented to person, Disoriented to place, Disoriented to time, Weakness, Sensory loss, Facial droop, Slurred/abnml speech, Depressed mood/affect, Other - Lab Results Fish Bones: 04/10/17 05:15 04/10/17 05:15 Other Labs: Lab Results x24hrs 04/23/17 04/23/17 04/22/17 Range/Units 11:18 07:49 19:41 POC Whole Bld Glucose 237 H 196 H 142 H (70 - 100) mg/dL 04/22/17 Range/Units 15:43 POC Whole Bld Glucose 108 H (70 - 100) mg/dL Assessment/Plan - Problem List (1) Fracture of distal end of tibia Impression: vital and lab review, stable. no other complaints reported. wait for replacement. Qualifiers: Encounter type: subsequent encounter Fracture type: closed
[2017-04-23] MEDS: GABAPENTIN 100 MG CAPSULE PO SCH (20:29)
[2017-04-23] MEDS: SERTRALINE 50 MG TABLET PO SCH (20:30)
[2017-04-23] MEDS: ATORVASTATIN 10 MG TABLET PO SCH (20:30)
[2017-04-23] MEDS: INSULIN GLARGINE 300 UNIT/3 ML PEN SUBQ SCH (20:40)
[2017-04-24] MEDS: HYDROcod/ACETAM 10 MG/325 MG TABLET PO PRN ×5 (01:03→21:54)
[2017-04-24] MEDS: INSULIN ASPART 300 UNIT/3 ML PEN SUBQ SCH ×7 (08:06→20:58)
[2017-04-24] MEDS: ASPIRIN EC 81 MG TABLET PO SCH (08:07)
[2017-04-24] MEDS: metFORMIN 500 MG TABLET PO SCH ×2 (08:07→16:57)
[2017-04-24] MEDS: FENOFIBRATE 48 MG TABLET PO SCH (08:07)
[2017-04-24] MEDS: AMIODARONE 200 MG TABLET PO SCH (08:08)
[2017-04-24] MEDS: OMEGA-3 ACID ETHYL ESTERS 1 GM CAPSULE PO SCH ×2 (08:08→20:55)
[2017-04-24] MEDS: SENNA 8.6 MG TABLET PO SCH (08:08)
[2017-04-24] MEDS: LISINOPRIL 5 MG TABLET PO SCH (08:08)
[2017-04-24] MEDS: DOCUSATE SODIUM 250 MG CAPSULE PO SCH (08:08)
[2017-04-24] MEDS: MULTIVITAMIN TABLET PO SCH (08:08)
[2017-04-24] MEDS: POLYETHYLENE GLYCOL 3350 17 GM PACKET PO SCH (08:08)
[2017-04-24] MEDS: ENOXAPARIN 40 MG/0.4 ML SYRINGE SUBQ SCH (08:09)
[2017-04-24] MEDS: NYSTATIN POWDER 15 GM TOP SCH ×2 (11:00→20:57)
[2017-04-24] MEDS: NYSTATIN CREAM 15 GM TUBE TOP SCH ×2 (11:00→20:58)
[2017-04-24] MEDS: MUPIROCIN 2% OINT 22 GM TUBE TOP SCH ×2 (11:00→20:57)
--- NOTE | 2017-04-24 13:46 | XRAY Report ---
THREE-VIEW RIGHT ANKLE: 04/24/2017 CLINICAL INDICATION: Ankle fracture. COMPARISON: 04/04/2017, 03/11/2017. FINDINGS: AP, lateral, oblique views of the right ankle demonstrate slight interval increase in sepa ration of tibial fracture fragments, with a 5 mm gap in the tibial articular surface. Some callus fo rmation is seen posteriorly. Plantar and posterior calcaneal spurring is again noted, and degenerati ve changes are again seen. Alignment of the medial malleolar fracture appears unchanged. IMPRESSION: SLIGHT INTERVAL INCREASE IN SEPARATION OF POSTERIOR MALLEOLAR FRACTURE FRAGMENT, NOW WIT H A 5 MM GAP IN THE TIBIAL ARTICULAR SURFACE SEEN ON THE LATERAL VIEW. SOME POSTERIOR CALLUS FORMATI ON IS NOTED, BUT FRACTURE LINES REMAIN READILY EVIDENT. JOB #: [id number] EXT JOB #:[id number]
--- NOTE | 2017-04-24 14:29 | PROVIDER PROGRESS NOTE ---
Subjective - Prog Note Date Prog Note Date: 04/24/17 Prog Note Time: 14:26 - Subjective Pt reports feeling: No change Subjective: pt report no changings Objective - Vital Signs/Intake & Output Vital Signs: Vital Signs x48h Temp Pulse Resp BP Pulse Ox 04/24/17 08:17 36.7 C 83 16 110/69 97 Intake & Output: Intake & Output 04/21/17 04/22/17 04/23/17 04/24/17 23:59 23:59 23:59 23:59 Intake Total 3060 3250 3980 1212 Output Total 5965 4075 6025 1800 Balance -2905 -825 -2045 -588 - Objective General Appearance: positive: No acute distress, Alert. negative: Mild distress , Moderate distress, Severe distress, Anxious, Lethargic, Other Eyes Bilateral: positive: Normal inspection, PERRL. negative: EOMI, No lid inflammation, Conjunctivae nml, No scleral icterus, Other ENT: positive: ENT inspection nml, No signs of dehydration. negative: Pharynx nml, Purulent nasal drainage, Pharyngeal erythema, Oral lesions, Dry mucous membranes, Other Neck: positive: Nml inspection, Trachea midline, Other (trachyostomy). negative : Thyroid nml, No JVD, Thyromegaly, Lymphadenopathy (R), Lymphadenopathy (L), Stiff neck, Kernig's sign, Brudzinski's sign, Carotid bruit, Swelling/bruising, Tracheal deviation Respiratory: positive: Chest non-tender, No respiratory distress, Breath sounds nml. negative: Wheezes, Rales, Rhonchi, Other Cardiovascular: positive: Regular rate & rhythm, No murmur, No gallop. negative : Irregularly irregular, Extrasystoles, Tachycardia, Bradycardia, PMI displaced laterally, JVD present, Systolic murmur, Diastolic murmur, Gallop/S3, Gallop/S4 , Friction rub, Decreased pulse(s), Crepitus, Other Peripheral Pulses: 2+ Radial (R), 2+ Radial (L), 2+ Dorsalis pedis (R), 2+ Dorsalis pedis (L) Abdomen: positive: Non-tender, Nml bowel sounds, No distention. negative: No organomegaly, Tenderness, Guarding, Rebound, Hepatomegaly, Splenomegaly, Mass, Abnml bowel sounds, Bruit, Other Back: positive: Nml inspection. negative: CVA tenderness (R), CVA tenderness (L ), Other Skin: positive: Color nml, Warm. negative: No rash, Dry, Cyanosis, Diaphoresis , Pallor, Skin rash, Decubitus, Laceration (cm), Puncture wound, Embolic lesions , Other Extremities: positive: Non-tender, Other (right lower extremity has limited ROM special at ankle). negative: Full ROM, No pedal edema, Pedal edema, Calf tenderness, Joint swelling, Elda's sign/cords Neurologic/Psychiatric: positive: Oriented x3, CN's nml (2-12), Sensation nml, Mood/affect nml. negative: Motor nml, Disoriented to person, Disoriented to place, Disoriented to time, Weakness, Sensory loss, Facial droop, Slurred/abnml speech, Depressed mood/affect, Other - Lab Results Fish Bones: 04/10/17 05:15 04/10/17 05:15 Other Labs: Lab Results x24hrs 04/24/17 04/24/17 04/23/17 Range/Units 11:20 07:42 20:08 POC Whole Bld Glucose 190 H 178 H 158 H (70 - 100) mg/dL 04/23/17 Range/Units 15:41 POC Whole Bld Glucose 110 H (70 - 100) mg/dL Assessment/Plan - Problem List (1) Fracture of distal end of tibia Impression: pt's vital and lab reviewed and stable. Review the new xray of right foot with patient, and explain the finding to patient. Will discuss with care team in the meeting for treatment plan, will forward the message to following service team. Qualifiers: Encounter type: subsequent encounter Fracture type: closed
[2017-04-24] MEDS: FUROSEMIDE 40 MG TABLET PO SCH (14:33)
[2017-04-24] MEDS: GABAPENTIN 100 MG CAPSULE PO SCH (20:55)
[2017-04-24] MEDS: SERTRALINE 50 MG TABLET PO SCH (20:55)
[2017-04-24] MEDS: ATORVASTATIN 10 MG TABLET PO SCH (20:55)
[2017-04-24] MEDS: INSULIN GLARGINE 300 UNIT/3 ML PEN SUBQ SCH (20:56)
[2017-04-25] MEDS: HYDROcod/ACETAM 10 MG/325 MG TABLET PO PRN ×3 (06:03→20:20)
[2017-04-25] MEDS: INSULIN ASPART 300 UNIT/3 ML PEN SUBQ SCH ×7 (07:58→21:13)
[2017-04-25] MEDS: metFORMIN 500 MG TABLET PO SCH ×2 (07:58→17:53)
[2017-04-25] MEDS: ENOXAPARIN 40 MG/0.4 ML SYRINGE SUBQ SCH (08:00)
[2017-04-25] MEDS: POLYETHYLENE GLYCOL 3350 17 GM PACKET PO SCH (08:01)
[2017-04-25] MEDS: OMEGA-3 ACID ETHYL ESTERS 1 GM CAPSULE PO SCH ×2 (08:01→20:19)
[2017-04-25] MEDS: FENOFIBRATE 48 MG TABLET PO SCH (08:01)
[2017-04-25] MEDS: ASPIRIN EC 81 MG TABLET PO SCH (08:01)
[2017-04-25] MEDS: SENNA 8.6 MG TABLET PO SCH (08:01)
[2017-04-25] MEDS: AMIODARONE 200 MG TABLET PO SCH (08:01)
[2017-04-25] MEDS: DOCUSATE SODIUM 250 MG CAPSULE PO SCH (08:01)
[2017-04-25] MEDS: MULTIVITAMIN TABLET PO SCH (08:01)
[2017-04-25] MEDS: LISINOPRIL 5 MG TABLET PO SCH (08:02)
[2017-04-25] MEDS: FUROSEMIDE 40 MG TABLET PO SCH ×2 (08:59→14:29)
[2017-04-25] MEDS: MUPIROCIN 2% OINT 22 GM TUBE TOP SCH ×2 (09:00→21:12)
[2017-04-25] MEDS: NYSTATIN POWDER 15 GM TOP SCH ×2 (09:00→21:12)
[2017-04-25] MEDS: NYSTATIN CREAM 15 GM TUBE TOP SCH ×2 (09:00→21:11)
--- NOTE | 2017-04-25 09:38 | PROVIDER PROGRESS NOTE ---
Subjective - Prog Note Date Prog Note Date: 04/25/17 Prog Note Time: 09:31 - Subjective Subjective: Patient sitting up in bed, no distress, on his phone. He denies any acute changes, breathing and chronic pain at baseline, had some aching in the right heel yesterday but non now. Has good appetite. Had dicussion about depression and boredom from institutionalization during his 40day stay. He has a laptop and phone which helps pass the time. He has not been out of his room or out of bed so it gets very lonely, no family or friend s have been to visit. Current Medications - Current Medications Current Medications: Active Medications Acetaminophen/Hydrocodone Bitart ([place] 10 Mg/325 Mg) 1 tab PO Q4HR PRN PRN Reason: PAIN Last Admin: 04/13/17 22:22 Dose: 1 tab Acetaminophen/Hydrocodone Bitart ([place] 10 Mg/325 Mg) 2 tab PO Q4HR PRN PRN Reason: PAIN Last Admin: 04/25/17 06:03 Dose: 2 tab Amiodarone HCl (Pacerone) 200 mg PO DAILY [facility] Last Admin: 04/25/17 08:01 Dose: 200 mg Aspirin (Ecotrin) 81 mg PO DAILY [facility] Last Admin: 04/25/17 08:01 Dose: 81 mg Atorvastatin Calcium (Lipitor) 10 mg PO QPM [facility] Last Admin: 04/24/17 20:55 Dose: 10 mg Baclofen (Lioresal) 10 mg PO TID PRN PRN Reason: Cramp Last Admin: 03/30/17 21:16 Dose: 10 mg Docusate Sodium (Colace 250mg Capsule) 250 - 500 mg PO DAILY [facility] Last Admin: 04/25/17 08:01 Dose: 250 mg Enoxaparin Sodium (Lovenox) 40 mg SUBQ DAILY [facility] Last Admin: 04/25/17 08:00 Dose: 40 mg Fenofibrate (Tricor) 144 mg PO DAILY [facility] Last Admin: 04/25/17 08:01 Dose: 144 mg Furosemide (Lasix) 80 mg PO DAILY [facility] Last Admin: 04/25/17 08:59 Dose: 80 mg Furosemide (Lasix) 40 mg PO DAILY@1400 [place] Last Admin: 04/24/17 14:33 Dose: 40 mg Gabapentin (Neurontin) 200 mg PO QPM [facility] Last Admin: 04/24/17 20:55 Dose: 200 mg Insulin Aspart (Novolog) 3 - 11 unit SUBQ 0800,1200,1700,2100 [facility] PRN Reason: Protocol Last Admin: 04/25/17 07:59 Dose: 5 unit Insulin Aspart (Novolog) 40 unit SUBQ TIDWM [facility] PRN Reason: Protocol Last Admin: 04/25/17 07:58 Dose: 40 unit Insulin Glargine (Lantus Solostar) 80 unit SUBQ QPM [facility] Last Admin: 04/24/17 20:56 Dose: 80 unit Lisinopril (Zestril) 2.5 mg PO DAILY [facility] Last Admin: 04/25/17 08:02 Dose: 2.5 mg Metformin HCl (Glucophage) 1,000 mg PO BIDWM [facility] Last Admin: 04/25/17 07:58 Dose: 1,000 mg Multivitamins (Theragran) 1 tab PO DAILYWM [facility] Last Admin: 04/25/17 08:01 Dose: 1 tab Mupirocin (Bactroban 2% Oint) 1 applic TOP BID [facility] Last Admin: 04/25/17 09:00 Dose: 1 applic Nystatin (Nystop) 1 applic TOP BID [facility] Last Admin: 04/25/17 09:00 Dose: 1 applic Nystatin (Mycostatin Cream) 1 applic TOP BID [facility] Last Admin: 04/25/17 09:00 Dose: 1 applic Rovgy-5-Bsty Ethyl Esters (Lovaza) 2 gm PO BID [facility] Last Admin: 04/25/17 08:01 Dose: 2 gm Polyethylene Glycol (Miralax) 17 gm PO DAILY [facility] Last Admin: 04/25/17 08:01 Dose: 17 gm Senna (Senokot) 8.6 - 17.2 mg PO DAILY [facility] Last Admin: 04/25/17 08:01 Dose: 8.6 mg Sertraline HCl (Zoloft) 300 mg PO QPM [facility] Last Admin: 04/24/17 20:55 Dose: 300 mg Insulin Glargine,Hum.rec.anlog [Lantus Solostar] 76 unit SQ QPM 03/20/13 Lisinopril 10 mg PO BID 03/20/13 Lovastatin 40 mg PO QPM 03/20/13 Multivitamin [Multivitamins] 1 each PO DAILY 03/20/13 metFORMIN [Glucophage] 1,000 mg PO BIDWM 03/20/13 Fenofibrate 160 mg PO DAILY 06/10/14 Aspirin 81 mg PO DAILY 10/04/16 HYDROcodone/ACET 10/325 [[place] 10 mg/325 mg] 1 tab PO QID 10/04/16 Insulin Aspart [Novolog Flexpen] 40 unit SUBQ TIDWM 10/04/16 Furosemide [Lasix] 80 mg PO DAILY 03/11/17 Gabapentin 100 - 200 mg PO QPM 03/11/17 Icosapent Ethyl [Vascepa] 2 gm PO BID 03/12/17 Sertraline HCl [Zoloft] 300 mg PO QPM 03/12/17 Objective - Vital Signs/Intake & Output Reviewed Vital Signs: Yes Vital Signs: Vital Signs x48h Temp Pulse Resp BP Pulse Ox 04/25/17 07:39 36.5 C 85 18 110/74 98 Intake & Output: Intake & Output 04/22/17 04/23/17 04/24/17 04/25/17 23:59 23:59 23:59 23:59 Intake Total 3250 3980 2177 356 Output Total 4075 6051 4900 1250 Balance -825 -2045 -2723 -894 - Objective General Appearance: positive: No acute distress, Alert Eyes Bilateral: positive: Normal inspection ENT: positive: No signs of dehydration Respiratory: positive: Chest non-tender, No respiratory distress, Breath sounds nml (good cough effort), Other (Trach with trach collar O2, covers with finger to talk at length) Cardiovascular: positive: Regular rate & rhythm, Other (distant heart sounds ( due to habitus propbably)). negative: Tachycardia Peripheral Pulses: 1+ Dorsalis pedis (R), 1+ Dorsalis pedis (L), 2+ Radial (R), 2+ Radial (L) Abdomen: positive: Non-tender (obese, very round), Nml bowel sounds Skin: positive: Color nml, Warm, Dry, Other (Right posterior heel DTI, dressing CDI (not removed - due to be changed tomorrow). negative: Skin rash Extremities: positive: Non-tender, Full ROM (somewhat limited by body habitus and the size of his bed), Pedal edema (trace vs fatty). 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 Now with inability to manage ADLs due to NWB status, he does have PURA, previously lived w/ elderly mother. 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 D/W Dr Garcia - advancing WB status. -WBAT with cam boot -repeat xray in 4 weeks -Awaiting placement, accepted at [facility] awaiting DME arrival -NWB until ortho deems ok -Lovenox for DVT prophylaxis (2) Atrial fibrillation w/ Hx of RVR Impression: February 2017 [facility] admission afib RVR/ >>> reverted to NSR, this admit Rate controlled on 200 mg daily Amiodarone CVA prevention: no anticoagulation 2/2 previous SAH -Continue amiodarone -Monitor for RVR -Referral to cardiology for evaluation for ablation given [id number] score 4 (1htn,1dm,2cva) (3) Hypercapnia/ metabolic alkalosis Impression: Etiology: obesity hypoventilation syndorme. Chronic; stable , awake, alert. Hypochloremia - improving, 88 on admit, last 94. -Monitor for sedation (5) Diabetes type 2, uncontrolled with right heel ulcer Impression: T2DM on metformin + lantus + nutritional insulin at home, A1c improved from 11.6 -->9.2%. Resumed metformin on 04/12 as no anticipation of needing IV contrast study and previous LORENA had resolved. -Continue metformin bid -Lantus back to 80u qHS (home dose) -Novolog 40u with meals -Novolog high dose SSI for correction -Continue gabapentin for neuropathy -Carb control diet Right heel ulcer, Debrideded, covered with iodoform guaze and dressing -Wound care instructions per Wound RN -Float heels (6) HTN (hypertension), benign Impression: On LIZA, CCB, lasix at home. Normotensive. CCB stopped, now on amiodarone for afib rate control. LIZA for renal protection 2/2 DM, dose reduced 2/2 SBP in 100s -Continue lisinopril 2.5mg daily -Continue amiodarone 200mg daily -Continue lasix 80mg AM/40mg @2pm -Monitor BP routinely and titrate meds as needed Resolved Issues: (7) LORENA (acute kidney injury) Impression: No hx of CKD, baseline creat 1.0. Was 1.3 on 03/13 - improved with then up again to 1.4 from 03/19-03/27. Now 1.1. -Avoid nephrotoxic agents -Repeat BMP today (last on 03/28) (8) Constipation: Impression: Patient goal, q3d BM. -Continue miralax and colace (9)Health care acquired pneumonia Impression: Admitting diagnosis, risks include in/out of hospital that week, CT chest with consolidation in the lingula and LLL, Bilat LL atelectasis. Now s/p 10 days of zosyn and levaquin. Blood cultures negative. CXR on 03/16 with no focal consolidation. Stopped florastor 04/11. (10) Upper molar dental caries Impression: Recommended warm salt water rinses after meals and bedtime -needs to see dentist at some point after done SNF -if infection occurs consider stating augmentin Patient is currently pending placement, otherwise medically stable. Qualifiers: Encounter type: subsequent encounter Fracture type: closed
--- NOTE | 2017-04-25 09:49 | PROVIDER PROGRESS NOTE ---
<Rema Garcia - Last Filed: 04/25/17 09:47> Objective - Vital Signs/Intake & Output Vital Signs: Vital Signs x48h Temp Pulse Resp BP Pulse Ox 04/25/17 07:39 36.5 C 85 18 110/74 98 Intake & Output: Intake & Output 04/22/17 04/23/17 04/24/17 04/25/17 23:59 23:59 23:59 23:59 Intake Total 3250 3980 2177 356 Output Total 4079 3528 8909 1250 [facility] -825 -2045 -2723 -894 - Lab Results Other Labs: Lab Results x24hrs 04/25/17 04/24/17 04/24/17 Range/Units 07:32 20:38 16:43 POC Whole Bld Glucose 215 H 96 105 H (70 - 100) mg/dL 04/24/17 Range/Units 11:20 POC Whole Bld Glucose 190 H (70 - 100) mg/dL <Nicolasa Torre - Last Filed: 04/25/17 10:12> Objective - Vital Signs/Intake & Output Reviewed Vital Signs: Yes - Lab Results Fish Bones: 04/10/17 05:15 04/10/17 05:15 Assessment/Plan - Problem List (1) Fracture of distal end of tibia Qualifiers: Encounter type: subsequent encounter Fracture type: closed
[2017-04-25 10:55] LABS: CALCIUM 9.7 mg/dL (8.5-10.3); CREATININE 1.2 mg/dL (0.6-1.2)
[2017-04-25] MEDS: GABAPENTIN 100 MG CAPSULE PO SCH (20:19)
[2017-04-25] MEDS: ATORVASTATIN 10 MG TABLET PO SCH (20:19)
[2017-04-25] MEDS: SERTRALINE 50 MG TABLET PO SCH (20:19)
[2017-04-25] MEDS: INSULIN GLARGINE 300 UNIT/3 ML PEN SUBQ SCH (21:12)
[2017-04-26] MEDS: HYDROcod/ACETAM 10 MG/325 MG TABLET PO PRN ×5 (03:50→21:44)
[2017-04-26] MEDS: ENOXAPARIN 40 MG/0.4 ML SYRINGE SUBQ SCH (08:01)
[2017-04-26] MEDS: AMIODARONE 200 MG TABLET PO SCH (08:01)
[2017-04-26] MEDS: POLYETHYLENE GLYCOL 3350 17 GM PACKET PO SCH (08:01)
[2017-04-26] MEDS: FENOFIBRATE 48 MG TABLET PO SCH (08:02)
[2017-04-26] MEDS: ASPIRIN EC 81 MG TABLET PO SCH (08:02)
[2017-04-26] MEDS: OMEGA-3 ACID ETHYL ESTERS 1 GM CAPSULE PO SCH ×2 (08:02→21:42)
[2017-04-26] MEDS: FUROSEMIDE 40 MG TABLET PO SCH ×2 (08:02→13:54)
[2017-04-26] MEDS: MULTIVITAMIN TABLET PO SCH (08:02)
[2017-04-26] MEDS: SENNA 8.6 MG TABLET PO SCH (08:02)
[2017-04-26] MEDS: metFORMIN 500 MG TABLET PO SCH ×2 (08:03→17:11)
[2017-04-26] MEDS: LISINOPRIL 5 MG TABLET PO SCH (08:03)
[2017-04-26] MEDS: DOCUSATE SODIUM 250 MG CAPSULE PO SCH (08:03)
[2017-04-26] MEDS: NYSTATIN POWDER 15 GM TOP SCH ×2 (08:05→21:43)
[2017-04-26] MEDS: NYSTATIN CREAM 15 GM TUBE TOP SCH ×2 (08:05→21:44)
[2017-04-26] MEDS: MUPIROCIN 2% OINT 22 GM TUBE TOP SCH ×2 (08:05→21:43)
[2017-04-26] MEDS: INSULIN ASPART 300 UNIT/3 ML PEN SUBQ SCH ×7 (08:06→21:43)
[2017-04-26] MEDS: INSULIN GLARGINE 300 UNIT/3 ML PEN SUBQ SCH ×2 (10:01→21:41)
--- NOTE | 2017-04-26 15:29 | PROVIDER PROGRESS NOTE ---
Subjective - Prog Note Date Prog Note Date: 04/26/17 Prog Note Time: 15:19 - Subjective Pt reports feeling: No change Subjective: Patient with no complaints, now new symptoms. Current Medications - Current Medications Current Medications: Active Medications Acetaminophen/Hydrocodone Bitart ([place] 10 Mg/325 Mg) 1 tab PO Q4HR PRN PRN Reason: PAIN Last Admin: 04/13/17 22:22 Dose: 1 tab Acetaminophen/Hydrocodone Bitart ([place] 10 Mg/325 Mg) 2 tab PO Q4HR PRN PRN Reason: PAIN Last Admin: 04/26/17 13:33 Dose: 2 tab Amiodarone HCl ([place]acerone) 200 mg PO DAILY [facility] Last Admin: 04/26/17 08:01 Dose: 200 mg Aspirin (Ecotrin) 81 mg PO DAILY [facility] Last Admin: 04/26/17 08:02 Dose: 81 mg Atorvastatin Calcium (Lipitor) 10 mg PO QPM [facility] Last Admin: 04/25/17 20:19 Dose: 10 mg Baclofen (Lioresal) 10 mg PO TID PRN PRN Reason: Cramp Last Admin: 03/30/17 21:16 Dose: 10 mg Docusate Sodium (Colace 250mg Capsule) 250 - 500 mg PO DAILY [facility] Last Admin: 04/26/17 08:03 Dose: 250 mg Enoxaparin Sodium (Lovenox) 40 mg SUBQ DAILY [facility] Last Admin: 04/26/17 08:01 Dose: 40 mg Fenofibrate (Tricor) 144 mg PO DAILY [facility] Last Admin: 04/26/17 08:02 Dose: 144 mg Furosemide (Lasix) 80 mg PO DAILY [facility] Last Admin: 04/26/17 08:02 Dose: 80 mg Furosemide (Lasix) 40 mg PO DAILY@1400 [facility] Last Admin: 04/26/17 13:54 Dose: 40 mg Gabapentin (Neurontin) 200 mg PO QPM [facility] Last Admin: 04/25/17 20:19 Dose: 200 mg Insulin Aspart (Novolog) 3 - 11 unit SUBQ 0800,1200,1700,2100 [facility] PRN Reason: Protocol Last Admin: 04/26/17 11:50 Dose: 5 unit Insulin Aspart (Novolog) 40 unit SUBQ TIDWM [facility] PRN Reason: Protocol Last Admin: 04/26/17 11:52 Dose: 40 unit Insulin Glargine (Lantus Solostar) 45 unit SUBQ BID [facility] Last Admin: 04/26/17 10:01 Dose: 45 unit Lisinopril (Zestril) 2.5 mg PO DAILY [facility] Last Admin: 04/26/17 08:03 Dose: 2.5 mg Metformin HCl (Glucophage) 1,000 mg PO BIDWM [facility] Last Admin: 04/26/17 08:03 Dose: 1,000 mg Multivitamins (Theragran) 1 tab PO DAILYWM [facility] Last Admin: 04/26/17 08:02 Dose: 1 tab Mupirocin (Bactroban 2% Oint) 1 applic TOP BID [facility] Last Admin: 04/26/17 08:05 Dose: 1 applic Nystatin (Nystop) 1 applic TOP BID [facility] Last Admin: 04/26/17 08:05 Dose: 1 applic Nystatin (Mycostatin Cream) 1 applic TOP BID [facility] Last Admin: 04/26/17 08:05 Dose: 1 applic [id number] Ethyl Esters (Lovaza) 2 gm PO BID [facility] Last Admin: 04/26/17 08:02 Dose: 2 gm Polyethylene Glycol (Miralax) 17 gm PO DAILY [facility] Last Admin: 04/26/17 08:01 Dose: 17 gm Senna (Senokot) 8.6 - 17.2 mg PO DAILY [facility] Last Admin: 04/26/17 08:02 Dose: 17.2 mg Sertraline HCl (Zoloft) 300 mg PO QPM [facility] Last Admin: 04/25/17 20:19 Dose: 300 mg Insulin Glargine,Hum.rec.anlog [Lantus Solostar] 76 unit SQ QPM 03/20/13 Lisinopril 10 mg PO BID 03/20/13 Lovastatin 40 mg PO QPM 03/20/13 Multivitamin [Multivitamins] 1 each PO DAILY 03/20/13 metFORMIN [Glucophage] 1,000 mg PO BIDWM 03/20/13 Fenofibrate 160 mg PO DAILY 06/10/14 Aspirin 81 mg PO DAILY 10/04/16 HYDROcodone/ACET 10/325 [[place] 10 mg/325 mg] 1 tab PO QID 10/04/16 Insulin Aspart [Novolog Flexpen] 40 unit SUBQ TIDWM 10/04/16 Furosemide [Lasix] 80 mg PO DAILY 05/27/17 Gabapentin 100 - 200 mg PO QPM 03/11/17 Icosapent Ethyl [Vascepa] 2 gm PO BID 03/12/17 Sertraline HCl [Zoloft] 300 mg PO QPM 03/12/17 Objective - Vital Signs/Intake & Output Reviewed Vital Signs: Yes Vital Signs: Vital Signs x48h Temp Pulse Resp BP Pulse Ox 04/26/17 08:33 36.6 C 81 16 120/78 97 Intake & Output: Intake & Output 04/23/17 04/24/17 04/25/17 04/26/17 23:59 23:59 23:59 23:59 Intake Total 3980 0979 5946 3629 Output Total 9215 3780 2332 3000 Balance -2045 -2723 -2629 -1360 - Objective General Appearance: positive: No acute distress, Alert Respiratory: positive: Chest non-tender, No respiratory distress, Breath sounds nml Cardiovascular: positive: Regular rate & rhythm Abdomen: positive: Non-tender, Nml bowel sounds Skin: positive: Warm, Dry Extremities: positive: Nml appearance (obese) Neurologic/Psychiatric: positive: Oriented x3, Mood/affect nml - Lab Results Fish Bones: 04/10/17 05:15 04/25/17 10:40 Other Labs: Lab Results x24hrs 04/26/17 04/26/17 04/25/17 Range/Units 11:31 07:26 20:46 POC Whole Bld Glucose 199 H 235 H 164 H (70 - 100) mg/dL Assessment/Plan - Problem List (1) Fracture of distal end of tibia Impression: (1) Fracture of distal end of tibia Impression: 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 Now with inability to manage ADLs due to NWB status, he does have PURA, previously lived w/ elderly mother. 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 D/W Dr Garcia - advancing WB status. D/W PT/OT - there is no safe way to get the pateint OOB to even stand. WIll have to delay until reaches rehab. -WBAT with post-op shoe +no cam boot due to DTI -repeat xray in 4 weeks -Awaiting placement, accepted at [facility] awaiting DME arrival -NWB until ortho deems ok -Lovenox for DVT prophylaxis (2) Atrial fibrillation w/ Hx of RVR Impression: February 2017 [facility] admission afib RVR/ >>> reverted to NSR, this admit Rate controlled on 200 mg daily Amiodarone CVA prevention: no anticoagulation 2/2 previous SAH -Continue amiodarone -Monitor for RVR -Referral to cardiology for evaluation for ablation given [id number] score 4 (1htn,1dm,2cva) (3) Hypercapnia/ metabolic alkalosis Impression: Etiology: obesity hypoventilation syndorme. Chronic; stable , awake, alert. Hypochloremia - improving, 88 on admit, last 92. -Monitor for sedation (5) Diabetes type 2, uncontrolled with right heel ulcer Impression: T2DM on metformin + lantus + nutritional insulin at home, A1c improved from 11.6 -->9.2%. Resumed metformin on 04/12 as no anticipation of needing IV contrast study and previous LORENA had resolved. BG remains in 200-250. -Continue metformin bid -Change Lantus 45u BID -Novolog 40u with meals -Novolog high dose SSI for correction -Continue gabapentin for neuropathy -Carb control diet Right heel ulcer, Debrideded, covered with iodoform guaze and dressing -Wound care instructions per Wound RN -Float heels (6) HTN (hypertension), benign Impression: On LIZA, CCB, lasix at home. Normotensive. CCB stopped, now on amiodarone for afib rate control. LIZA for renal protection 2/2 DM, dose reduced 2/2 SBP in 100s. Repeat labs 04/25, NA 132, BUn 27, concern for overdiuresis. -Continue lisinopril 2.5mg daily -Continue amiodarone 200mg daily -Change lasix 40mg BID -Monitor BP routinely and titrate meds as needed Resolved Issues: (7) LORENA (acute kidney injury) Impression: No hx of CKD, baseline creat 1.0. Was 1.3 on 03/13 - improved with then up again to 1.4 from 03/19-03/27. Now 1.2 -Avoid nephrotoxic agents (8) Constipation: Impression: Patient goal, q3d BM. -Continue miralax and colace (9)Health care acquired pneumonia Impression: Admitting diagnosis, risks include in/out of hospital that week, CT chest with consolidation in the lingula and LLL, Bilat LL atelectasis. Now s/p 10 days of zosyn and levaquin. Blood cultures negative. CXR on 03/16 with no focal consolidation. Stopped florastor 04/11. (10) Upper molar dental caries Impression: Recommended warm salt water rinses after meals and bedtime -needs to see dentist at some point after done SNF -if infection occurs consider stating augmentin Patient is currently pending placement, otherwise medically stable.
[2017-04-26] MEDS: ATORVASTATIN 10 MG TABLET PO SCH (21:42)
[2017-04-26] MEDS: GABAPENTIN 100 MG CAPSULE PO SCH (21:42)
[2017-04-26] MEDS: SERTRALINE 50 MG TABLET PO SCH (21:44)
[2017-04-26] MEDS: BACLOFEN 10 MG TABLET PO PRN (23:51)
[2017-04-27] MEDS: HYDROcod/ACETAM 10 MG/325 MG TABLET PO PRN ×4 (01:56→20:40)
[2017-04-27] MEDS: metFORMIN 500 MG TABLET PO SCH ×2 (08:15→16:56)
[2017-04-27] MEDS: SENNA 8.6 MG TABLET PO SCH (08:17)
[2017-04-27] MEDS: AMIODARONE 200 MG TABLET PO SCH (08:17)
[2017-04-27] MEDS: DOCUSATE SODIUM 250 MG CAPSULE PO SCH (08:17)
[2017-04-27] MEDS: LISINOPRIL 5 MG TABLET PO SCH (08:18)
[2017-04-27] MEDS: MULTIVITAMIN TABLET PO SCH (08:18)
[2017-04-27] MEDS: POLYETHYLENE GLYCOL 3350 17 GM PACKET PO SCH (08:19)
[2017-04-27] MEDS: INSULIN ASPART 300 UNIT/3 ML PEN SUBQ SCH ×7 (08:19→20:46)
[2017-04-27] MEDS: OMEGA-3 ACID ETHYL ESTERS 1 GM CAPSULE PO SCH ×2 (08:19→20:40)
[2017-04-27] MEDS: ENOXAPARIN 40 MG/0.4 ML SYRINGE SUBQ SCH (08:19)
[2017-04-27] MEDS: ASPIRIN EC 81 MG TABLET PO SCH (08:20)
[2017-04-27] MEDS: INSULIN GLARGINE 300 UNIT/3 ML PEN SUBQ SCH ×2 (08:20→20:42)
[2017-04-27] MEDS: FENOFIBRATE 48 MG TABLET PO SCH (08:20)
[2017-04-27] MEDS: MUPIROCIN 2% OINT 22 GM TUBE TOP SCH ×2 (08:21→20:46)
[2017-04-27] MEDS: NYSTATIN CREAM 15 GM TUBE TOP SCH ×2 (08:21→20:46)
[2017-04-27] MEDS: NYSTATIN POWDER 15 GM TOP SCH ×2 (08:21→20:45)
--- NOTE | 2017-04-27 13:59 | PROVIDER PROGRESS NOTE ---
Subjective - Prog Note Date Prog Note Date: 04/27/17 Prog Note Time: 13:57 - Subjective Pt reports feeling: No change Subjective: Patient without acute changes, breathing and pain at baseline. RD reports he has lost 55lbs since admission. Current Medications - Current Medications Current Medications: Active Medications Acetaminophen/Hydrocodone Bitart ([place] 10 Mg/325 Mg) 1 tab PO Q4HR PRN PRN Reason: PAIN Last Admin: 04/13/17 22:22 Dose: 1 tab Acetaminophen/Hydrocodone Bitart ([place] 10 Mg/325 Mg) 2 tab PO Q4HR PRN PRN Reason: PAIN Last Admin: 04/27/17 12:11 Dose: 2 tab Amiodarone HCl (Pacerone) 200 mg PO DAILY [facility] Last Admin: 04/27/17 08:17 Dose: 200 mg Aspirin (Ecotrin) 81 mg PO DAILY [facility] Last Admin: 04/27/17 08:20 Dose: 81 mg Atorvastatin Calcium (Lipitor) 10 mg PO QPM [facility] Last Admin: 04/26/17 21:42 Dose: 10 mg Baclofen (Lioresal) 10 mg PO TID PRN PRN Reason: Cramp Last Admin: 04/26/17 23:51 Dose: 10 mg Docusate Sodium (Colace 250mg Capsule) 250 - 500 mg PO DAILY [facility] Last Admin: 04/27/17 08:17 Dose: 500 mg Enoxaparin Sodium (Lovenox) 40 mg SUBQ DAILY [facility] Last Admin: 04/27/17 08:19 Dose: 40 mg Fenofibrate (Tricor) 144 mg PO DAILY [facility] Last Admin: 04/27/17 08:20 Dose: 144 mg Gabapentin (Neurontin) 200 mg PO QPM [facility] Last Admin: 04/26/17 21:42 Dose: 200 mg Insulin Aspart (Novolog) 3 - 11 unit SUBQ 0800,1200,1700,2100 [facility] PRN Reason: Protocol Last Admin: 04/27/17 11:51 Dose: 5 unit Insulin Aspart (Novolog) 40 unit SUBQ TIDWM [facility] PRN Reason: Protocol Last Admin: 04/27/17 11:51 Dose: 40 unit Insulin Glargine (Lantus Solostar) 45 unit SUBQ BID [facility] Last Admin: 04/27/17 08:20 Dose: 45 unit Lisinopril (Zestril) 2.5 mg PO DAILY [facility] Last Admin: 04/27/17 08:18 Dose: 2.5 mg Metformin HCl (Glucophage) 1,000 mg PO BIDWM [facility] Last Admin: 04/27/17 08:15 Dose: 1,000 mg Multivitamins (Theragran) 1 tab PO DAILYWM [facility] Last Admin: 04/27/17 08:18 Dose: 1 tab Mupirocin (Bactroban 2% Oint) 1 applic TOP BID [facility] Last Admin: 04/27/17 08:21 Dose: 1 applic Nystatin (Nystop) 1 applic TOP BID [facility] Last Admin: 04/27/17 08:21 Dose: 1 applic Nystatin (Mycostatin Cream) 1 applic TOP BID [facility] Last Admin: 04/27/17 08:21 Dose: 1 applic [id number] Ethyl Esters (Lovaza) 2 gm PO BID [facility] Last Admin: 04/27/17 08:19 Dose: 2 gm Polyethylene Glycol (Miralax) 17 gm PO DAILY [facility] Last Admin: 04/27/17 08:19 Dose: 17 gm Senna (Senokot) 8.6 - 17.2 mg PO DAILY [facility] Last Admin: 04/27/17 08:17 Dose: 17.2 mg Sertraline HCl (Zoloft) 300 mg PO QPM [facility] Last Admin: 04/26/17 21:44 Dose: 300 mg Insulin Glargine,Hum.rec.anlog [Lantus Solostar] 76 unit SQ QPM 03/20/13 Lisinopril 10 mg PO BID 03/20/13 Lovastatin 40 mg PO QPM 03/20/13 Multivitamin [Multivitamins] 1 each PO DAILY 03/20/13 metFORMIN [Glucophage] 1,000 mg PO BIDWM 03/20/13 Fenofibrate 160 mg PO DAILY 06/10/14 Aspirin 81 mg PO DAILY 10/04/16 HYDROcodone/ACET 10/325 [[place] 10 mg/325 mg] 1 tab PO QID 10/04/16 Insulin Aspart [Novolog Flexpen] 40 unit SUBQ TIDWM 10/04/16 Furosemide [Lasix] 80 mg PO DAILY 03/11/17 Gabapentin 100 - 200 mg PO QPM 03/11/17 Icosapent Ethyl [Vascepa] 2 gm PO BID 03/12/17 Sertraline HCl [Zoloft] 300 mg PO QPM 03/12/17 Objective - Vital Signs/Intake & Output Reviewed Vital Signs: Yes Vital Signs: Vital Signs x48h Temp Pulse Resp BP Pulse Ox 04/27/17 08:09 36.8 C 80 16 104/78 95 Intake & Output: Intake & Output 04/24/17 04/25/17 04/26/17 04/27/17 23:59 23:59 23:59 23:59 Intake Total 2177 2856 2330 2140 Output Total 4903 6683 6464 2177 Balance -2723 -2629 -3020 -35 - Objective General Appearance: positive: No acute distress, Alert Eyes Bilateral: positive: PERRL ENT: positive: No signs of dehydration Neck: positive: No JVD Respiratory: positive: Chest non-tender, No respiratory distress, Breath sounds nml (diminished bases) Cardiovascular: positive: Regular rate & rhythm (distant heart sounds) Peripheral Pulses: 1+ Dorsalis pedis (R), 1+ Dorsalis pedis (L), 2+ Radial (R), 2+ Radial (L) Abdomen: positive: Non-tender, Nml bowel sounds, No distention Skin: positive: Color nml, Warm, Dry Extremities: positive: Non-tender, Full ROM, Nml appearance. 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 Now with inability to manage ADLs due to NWB status, he does have PURA, previously lived w/ elderly mother. 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 D/W Dr Garcia - advancing WB status. D/W PT/OT - there is no safe way to get the patient OOB to even stand. Will have to delay until reaches rehab. -WBAT with post-op shoe +no cam boot due to DTI -repeat xray in 4 weeks -Awaiting placement, [facility] D[facility] arrival -NWB until ortho deems ok -Lovenox for DVT prophylaxis (2) Atrial fibrillation w/ Hx of RVR Impression: February 2017 [facility] admission afib RVR/ >>> reverted to NSR, this admit Rate controlled on 200 mg daily Amiodarone CVA prevention: no anticoagulation 2/2 previous SAH -Continue amiodarone -Monitor for RVR -Referral to cardiology for evaluation for ablation given [id number] score 4 (1htn,1dm,2cva) (3) Hypercapnia/ metabolic alkalosis Impression: Etiology: obesity hypoventilation syndorme. Chronic; stable , awake, alert. Hypochloremia - improving, 88 on admit, last . -Monitor for sedation (5) Diabetes type 2, uncontrolled with right heel ulcer Impression: T2DM on metformin + lantus + nutritional insulin at home, A1c improved from 11.6 -->9.2%. Resumed metformin on 04/12 as no anticipation of needing IV contrast study and previous LORENA had resolved. BG remains in 200-250, switched to BID lantus on 04/27 and increased daily total. -Continue metformin bid -Lantus 50u BID -Novolog 40u with meals -Novolog high dose SSI for correction -Continue gabapentin for neuropathy -Carb control diet Right heel deep tissue injury, Debrideded, covered with iodoform guaze and dressing -Wound care instructions per Wound RN -Float heels (6) HTN (hypertension), benign Impression: On LIZA, CCB, lasix at home. Normotensive. CCB stopped, now on amiodarone for afib rate control. LIZA for renal protection 2/2 DM, dose reduced 2/2 SBP in 100s. Repeat labs 04/25, NA 132, BUn 27, concern for overdiuresis, reduced lasix to 40 BID -Continue lisinopril 2.5mg daily -Continue amiodarone 200mg daily -Continue lasix 40mg BID -Monitor BP routinely and titrate meds as needed (7) Constipation: Impression: Patient goal, q3d BM. -Continue miralax and colace Resolved Issues: (8) LORENA (acute kidney injury) Impression: No hx of CKD, baseline creat 1.0. Was 1.3 on 03/13 - improved with then up again to 1.4 from 03/19-03/27. Now 1.2 -Avoid nephrotoxic agents (9)Health care acquired pneumonia Impression: Admitting diagnosis, risks include in/out of hospital that week, CT chest with consolidation in the lingula and LLL, Bilat LL atelectasis. Now s/p 10 days of zosyn and levaquin. Blood cultures negative. CXR on 03/16 with no focal consolidation. Stopped florastor 04/11. (10) Upper molar dental caries Impression: Recommended warm salt water rinses after meals and bedtime -needs to see dentist at some point after done SNF -if infection occurs consider stating augmentin DC Planning: [facility] has accepted patient and a listed of the necessary DME equipment has been provided. Once equipment obtained patient can be discharged to their faciltiy for rehab.
[2017-04-27] MEDS: SERTRALINE 50 MG TABLET PO SCH (20:39)
[2017-04-27] MEDS: GABAPENTIN 100 MG CAPSULE PO SCH (20:39)
[2017-04-27] MEDS: ATORVASTATIN 10 MG TABLET PO SCH (20:40)
[2017-04-28] MEDS: HYDROcod/ACETAM 10 MG/325 MG TABLET PO PRN ×5 (01:19→22:08)
[2017-04-28] MEDS: POLYETHYLENE GLYCOL 3350 17 GM PACKET PO SCH (08:37)
[2017-04-28] MEDS: metFORMIN 500 MG TABLET PO SCH ×2 (08:38→16:55)
[2017-04-28] MEDS: FENOFIBRATE 48 MG TABLET PO SCH (08:39)
[2017-04-28] MEDS: MULTIVITAMIN TABLET PO SCH (08:39)
[2017-04-28] MEDS: ASPIRIN EC 81 MG TABLET PO SCH (08:39)
[2017-04-28] MEDS: SENNA 8.6 MG TABLET PO SCH (08:40)
[2017-04-28] MEDS: LISINOPRIL 5 MG TABLET PO SCH (08:40)
[2017-04-28] MEDS: OMEGA-3 ACID ETHYL ESTERS 1 GM CAPSULE PO SCH ×2 (08:40→21:17)
[2017-04-28] MEDS: AMIODARONE 200 MG TABLET PO SCH (08:40)
[2017-04-28] MEDS: DOCUSATE SODIUM 250 MG CAPSULE PO SCH (08:41)
[2017-04-28] MEDS: INSULIN GLARGINE 300 UNIT/3 ML PEN SUBQ SCH ×2 (08:42→21:16)
[2017-04-28] MEDS: ENOXAPARIN 40 MG/0.4 ML SYRINGE SUBQ SCH (08:42)
[2017-04-28] MEDS: INSULIN ASPART 300 UNIT/3 ML PEN SUBQ SCH ×7 (08:42→21:20)
[2017-04-28] MEDS: MUPIROCIN 2% OINT 22 GM TUBE TOP SCH ×2 (08:46→21:20)
[2017-04-28] MEDS: NYSTATIN POWDER 15 GM TOP SCH ×2 (08:48→18:23)
--- NOTE | 2017-04-28 10:59 | PROVIDER PROGRESS NOTE ---
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 improving and stable Continue metformin bid -Lantus 50u BID -Novolog 40u with meals -Novolog high dose SSI for correction -Continue gabapentin for neuropathy -Carb control diet Right heel deep tissue injury, Debrideded, covered with iodoform guaze and dressing -Wound care instructions per Wound RN -Float heels (2) Fracture of distal end of tibia Assessment/Plan: improving, stable Pending placement once DME bariatric bed available. D/W Dr Garcia - advancing WB status. D/W PT/OT - there is no safe way to get the patient OOB to even stand. Will have to delay until reaches rehab. encouraging bed exercises for lower extremities -WBAT with post-op shoe +no cam boot due to DTI -repeat xray in 4 weeks -Awaiting placement, accepted at [facility] awaiting DME arrival -NWB until ortho deems ok -Lovenox for DVT prophylaxis (3) Super obesity Assessment/Plan: chronic. continue to encourage ambulation and weight loss with reduced calorie diet. monitor blood glucose. Lantus BID 50 units daily to reduce hemoglobin AiC. 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 -Continue amiodarone -Monitor for RVR -Referral to cardiology for evaluation for ablation given [id number] score 4 (1htn,1dm,2cva) - Current Meds Current Meds: Current Medications Generic Name Dose Route Start Last Admin Trade Name Freq PRN Reason Stop Dose Admin Acetaminophen/Hydrocodone Bitart 1 tab 03/18/17 15:46 04/13/17 22:22 [place] 10 Mg/325 Mg PO 1 tab Q4HR PRN Administration PAIN Acetaminophen/Hydrocodone Bitart 2 tab 03/18/17 15:46 04/28/17 05:54 [place] 10 Mg/325 Mg PO 2 tab Q4HR PRN Administration PAIN Amiodarone HCl 200 mg 03/31/17 09:00 04/28/17 08:40 Pacerone PO 200 mg DAILY ARDEN Administration Aspirin 81 mg 03/21/17 09:00 04/28/17 08:39 Ecotrin PO 81 mg DAILY ARDEN Administration Atorvastatin Calcium 10 mg 03/15/17 21:00 04/27/17 20:40 Lipitor PO 10 mg QPM ARDEN Administration Baclofen 10 mg 03/15/17 16:40 04/26/17 23:51 Lioresal PO 10 mg TID PRN Administration Cramp Docusate Sodium 250 - 500 mg 03/17/17 09:00 04/28/17 08:41 Colace 250mg Capsule PO 250 mg DAILY ARDEN Administration Enoxaparin Sodium 40 mg 03/17/17 09:00 04/28/17 08:42 Lovenox SUBQ 40 mg DAILY ARDEN Administration Fenofibrate 144 mg 03/16/17 09:00 04/28/17 08:39 Tricor PO 144 mg DAILY ARDEN Administration Gabapentin 200 mg 03/15/17 21:00 04/27/17 20:39 Neurontin PO 200 mg QPM ARDEN Administration Insulin Aspart 3 - 11 unit 03/30/17 12:00 04/28/17 08:42 Novolog SUBQ 5 unit 0800,1200,1700,2100 ARDEN Administration Protocol Insulin Aspart 40 unit 04/17/17 11:19 04/28/17 08:42 Novolog SUBQ 40 unit TIDWM ARDEN Administration Protocol Insulin Glargine 50 unit 04/27/17 14:02 04/28/17 08:42 Lantus Solostar SUBQ 50 unit BID ARDEN Administration Lisinopril 2.5 mg 04/03/17 09:00 04/28/17 08:40 Zestril PO 2.5 mg DAILY ARDEN Administration Metformin HCl 1,000 mg 04/12/17 20:00 04/28/17 08:38 Glucophage PO 1,000 mg BIDWM ARDEN Administration Multivitamins 1 tab 03/16/17 08:00 04/28/17 08:39 Theragran PO 1 tab DAILYWM ARDEN Administration Mupirocin 1 applic 03/21/17 21:00 04/28/17 08:46 Bactroban 2% Oint TOP 1 applic BID ARDEN Administration Nystatin 1 applic 03/19/17 14:00 04/28/17 08:48 Nystop TOP 1 applic BID ARDEN Administration Nystatin 1 applic 04/19/17 21:00 04/27/17 20:46 Mycostatin Cream TOP 1 applic BID ARDEN Administration Hqlve-0-Fvhc Ethyl Esters 2 gm 03/15/17 21:00 04/28/17 08:40 Lovaza PO 2 gm BID ARDEN Administration Polyethylene Glycol 17 gm 03/17/17 09:00 04/28/17 08:37 Miralax PO 17 gm DAILY ARDEN Administration Senna 8.6 - 17.2 mg 03/17/17 09:00 04/28/17 08:40 Senokot PO 8.6 mg DAILY ARDEN Administration Sertraline HCl 300 mg 03/15/17 21:00 04/27/17 20:39 Zoloft PO 300 mg QPM ARDEN Administration - Lab Result Lab results reviewed: Yes Fish Bone Diagrams: 04/10/17 05:15 04/25/17 10:40 - EKG Results EKG Interpreted Independently: No - Additional Planning Condition/Complexity: Stable Consult/Specialty: Surgery Plan Discussed with:: Patient, Case Management (spoke with case management regarding denial for hospitalization from April 17- for inpatient care and then placement at skilled care for rehab. left message and number with insurance for peer to peer review for coordination of benefits.) Time Spent: 31-60 minutes Additional Planning Notes: Plan to discharge within the next 24 hours. patient is high risk for worsening co morbid conditions and will require rehab for transfer. Subjective - Subjective Patient Reports: Feeling Better, Resting Comfortably, No Complaints Nursing Reports: No Complaints (patient stable in room with no complaints. he is pending discharge to rehab facility. He is on the computer and alert and oriented x 3. denies pain, nausea vomiting, chest pain or shortness of breath.) Objective Vital Signs: Vital Signs - 24 hr 04/27/17 04/27/17 04/28/17 16:11 23:40 07:50 Temperature 36.5 C 36.7 C 36.6 C Heart Rate [ 94 91 92 Brachial] Respiratory 20 18 17 Rate Blood Pressure 113/77 124/76 [Left Brachial artery] Blood Pressure 112/71 [Left Radial artery] O2 Saturation 98 95 97 Oxygen O2 Source [Without Activity] trach blow by O2 Source trac collar I&O (Last 24 Hrs): Intake and Output Totals x24h 04/26/17 04/27/17 04/28/17 23:59 23:59 23:59 Intake Total 2330 3380 1150 Output Total 5350 4515 2200 Balance -3020 -1135 -1050 General: Alert, Oriented x3 HEENT: Atraumatic, PERRLA Neck: Supple, No JVD Lymphatic: no adenopathy Neuro: Alert, CN 2-12 Grossly Intact Cardiovascular: Regular rate, Normal S1, Normal S2, No murmurs Respiratory: No respiratory distress, Breath sounds nml Abdomen: Normal bowel sounds, Soft, No tenderness Rectal: Stool - Heme NEG Extremities: No clubbing, No cyanosis, No edema, No tenderness/swelling Skin: No rashes, No breakdown - Results Results: Laboratory Results WBC 7.5 x10^3/uL (4.8-10.8) 04/10/17 05:15 RBC 4.79 10^6/uL (4.70-6.10) 04/10/17 05:15 Hgb 13.9 g/dL (14.0-18.0) L 04/10/17 05:15 Hct 41.5 % (42.0-52.0) L 04/10/17 05:15 MCV 86.6 fL (80.0-94.0) 04/10/17 05:15 MCH 29.1 pg (27.0-31.0) 04/10/17 05:15 MCHC 33.6 g/dL (32.0-36.0) 04/10/17 05:15 RDW 13.5 % (12.0-15.0) 04/10/17 05:15 Plt Count 233 10^3/uL (130-450) 04/10/17 05:15 MPV 7.6 fL (7.4-11.4) 04/10/17 05:15 Neut # 3.8 10^3/uL (1.5-6.6) 04/10/17 05:15 Lymph # 2.4 10^3/uL (1.5-3.5) 04/10/17 05:15 [place] # 0.6 10^3/uL (0.0-1.0) 04/10/17 05:15 Eos # 0.6 10^3/uL (0.0-0.7) 04/10/17 05:15 Baso # 0.1 10^3/uL (0.0-0.1) 04/10/17 05:15 Absolute Nucleated RBC 0.01 x10^3/uL 04/10/17 05:15 Nucleated RBCs 0.1 /100WBC 04/10/17 05:15 Bld Gas Analysis Time 82203/18/17 08:23 Sample Site RIGHT RADIAL 03/18/17 08:23 ABG pH 7.43 (7.35-7.45) 03/18/17 08:23 ABG pCO2 60 mmHg (34-45) H* 03/18/17 08:23 ABG pO2 84 mmHg (80-100) 03/18/17 08:23 ABG HCO3 39.1 mmol/L (22.0-26.0) H 03/18/17 08:23 ABG Total CO2 40.9 MMOL/L (21.0-29.0) H* 03/18/17 08:23 ABG O2 Saturation 96 % (94-98) 03/18/17 08:23 ABG Base Excess 12.4 mmol/L (-2.0-3.0) H 03/18/17 08:23 Avinash Test POSITIVE 03/18/17 08:23 O2 Delivery Device VENTILATOR 03/18/17 08:23 O2 Liters/Min 4.00 LPM 03/18/17 08:23 Sodium 132 mmol/L (135-145) L 04/25/17 10:40 Potassium 4.0 mmol/L (3.5-5.0) 04/25/17 10:40 Chloride 92 mmol/L (101-111) L 04/25/17 10:40 Carbon Dioxide 30 mmol/L (21-32) 04/25/17 10:40 Anion Gap 10.0 (6-13) 04/25/17 10:40 BUN 27 mg/dL (6-20) H 04/25/17 10:40 Creatinine 1.2 mg/dL (0.6-1.2) 04/25/17 10:40 Estimated GFR (MDRD) 62 (>89) L 04/25/17 10:40 Glucose 242 mg/dL (70-100) H 04/25/17 10:40 POC Whole Bld Glucose 192 mg/dL (70 - 100) H 04/28/17 07:26 Calcium 9.7 mg/dL (8.5-10.3) 04/25/17 10:40 Ionized Calcium NO 03/31/17 05:11 Phosphorus 3.5 mg/dL (2.5-4.6) 03/31/17 05:11 Magnesium 1.9 mg/dL (1.7-2.8) 03/31/17 05:11 Total Bilirubin 0.4 mg/dL (0.2-1.0) 04/10/17 05:15 Direct Bilirubin 0.1 mg/dL (0.1-0.5) 03/21/17 06:00 AST 20 IU/L (10-42) 04/10/17 05:15 ALT 18 IU/L (10-60) 04/10/17 05:15 Alkaline Phosphatase 59 IU/L (42-121) 04/10/17 05:15 Troponin I < 0.04 ng/mL (<0.49) 03/16/17 11:57 B-Natriuretic Peptide 51 pg/mL (5-100) 03/16/17 11:57 Total Protein 6.5 g/dL (6.7-8.2) L 04/10/17 05:15 Albumin 3.5 g/dL (3.2-5.5) 04/10/17 05:15 Globulin 3.0 g/dL (2.1-4.2) 04/10/17 05:15 Albumin/Globulin Ratio 1.2 (1.0-2.2) 04/10/17 05:15 - Procedures Procedures: Procedures VENOUS CATHETERIZATION NEC (05/21/14)
[2017-04-28] MEDS: NYSTATIN CREAM 15 GM TUBE TOP SCH ×2 (11:34→18:22)
[2017-04-28] MEDS: SERTRALINE 50 MG TABLET PO SCH (21:18)
[2017-04-28] MEDS: ATORVASTATIN 10 MG TABLET PO SCH (21:18)
[2017-04-28] MEDS: GABAPENTIN 100 MG CAPSULE PO SCH (21:20)
[2017-04-29] MEDS: HYDROcod/ACETAM 10 MG/325 MG TABLET PO PRN ×4 (03:20→18:21)
[2017-04-29] MEDS: POLYETHYLENE GLYCOL 3350 17 GM PACKET PO SCH (07:55)
[2017-04-29] MEDS: metFORMIN 500 MG TABLET PO SCH ×2 (07:56→18:20)
[2017-04-29] MEDS: FENOFIBRATE 48 MG TABLET PO SCH (07:57)
[2017-04-29] MEDS: AMIODARONE 200 MG TABLET PO SCH (07:57)
[2017-04-29] MEDS: MULTIVITAMIN TABLET PO SCH (07:58)
[2017-04-29] MEDS: SENNA 8.6 MG TABLET PO SCH (07:58)
[2017-04-29] MEDS: OMEGA-3 ACID ETHYL ESTERS 1 GM CAPSULE PO SCH ×2 (07:59→21:53)
[2017-04-29] MEDS: ASPIRIN EC 81 MG TABLET PO SCH (07:59)
[2017-04-29] MEDS: LISINOPRIL 5 MG TABLET PO SCH (07:59)
[2017-04-29] MEDS: INSULIN ASPART 300 UNIT/3 ML PEN SUBQ SCH ×7 (08:00→21:54)
[2017-04-29] MEDS: DOCUSATE SODIUM 250 MG CAPSULE PO SCH (08:00)
[2017-04-29] MEDS: INSULIN GLARGINE 300 UNIT/3 ML PEN SUBQ SCH ×2 (08:01→21:54)
[2017-04-29] MEDS: ENOXAPARIN 40 MG/0.4 ML SYRINGE SUBQ SCH (08:01)
[2017-04-29] MEDS: NYSTATIN POWDER 15 GM TOP SCH ×2 (08:05→21:55)
[2017-04-29] MEDS: MUPIROCIN 2% OINT 22 GM TUBE TOP SCH ×2 (08:05→21:55)
[2017-04-29] MEDS: NYSTATIN CREAM 15 GM TUBE TOP SCH ×2 (08:05→21:55)
--- NOTE | 2017-04-29 13:00 | PROVIDER PROGRESS NOTE ---
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 patient to continue on accuchecks and sliding scale insulin. continue with diabetic diet and encourage ambulation for weight loss. hemoglobin A1C resulted. continue with education for diabetes management. continue on insulin as scheduled. (3) Super obesity Assessment/Plan: chronic. patient has had a significant weight loss since admission. continue to encourage ambulation with nursing. bariatric bed and equipment has been ordered for patient when he goes to placement. (4) Atrial fibrillation with RVR Assessment/Plan: stable and chronic. continue with AFib home dosage and monitor vital signs and heart rate. - Current Meds Current Meds: Current Medications Generic Name Dose Route Start Last Admin Trade Name Freq PRN Reason Stop Dose Admin Acetaminophen/Hydrocodone Bitart 1 tab 03/18/17 15:46 04/13/17 22:22 [place] 10 Mg/325 Mg PO 1 tab Q4HR PRN Administration PAIN Acetaminophen/Hydrocodone Bitart 2 tab 03/18/17 15:46 04/29/17 07:57 [place] 10 Mg/325 Mg PO 2 tab Q4HR PRN Administration PAIN Amiodarone HCl 200 mg 03/31/17 09:00 04/29/17 07:57 Pacerone PO 200 mg DAILY ARDEN Administration Aspirin 81 mg 03/21/17 09:00 04/29/17 07:59 Ecotrin PO 81 mg DAILY ARDEN Administration Atorvastatin Calcium 10 mg 03/15/17 21:00 04/28/17 21:18 Lipitor PO 10 mg QPM ARDEN Administration Baclofen 10 mg 03/15/17 16:40 04/26/17 23:51 Lioresal PO 10 mg TID PRN Administration Cramp Docusate Sodium 250 - 500 mg 03/17/17 09:00 04/29/17 08:00 Colace 250mg Capsule PO 250 mg DAILY ARDEN Administration Enoxaparin Sodium 40 mg 03/17/17 09:00 04/29/17 08:01 Lovenox SUBQ 40 mg DAILY ARDEN Administration Fenofibrate 144 mg 03/16/17 09:00 04/29/17 07:57 Tricor PO 144 mg DAILY ARDEN Administration Gabapentin 200 mg 03/15/17 21:00 04/28/17 21:20 Neurontin PO 200 mg QPM ARDEN Administration Insulin Aspart 3 - 11 unit 03/30/17 12:00 04/29/17 11:32 Novolog SUBQ 5 unit 0800,1200,1700,2100 ARDEN Administration Protocol Insulin Aspart 40 unit 04/17/17 11:19 04/29/17 11:32 Novolog SUBQ 40 unit TIDWM ARDEN Administration Protocol Insulin Glargine 50 unit 04/27/17 14:02 04/29/17 08:01 Lantus Solostar SUBQ 50 unit BID ARDEN Administration Lisinopril 2.5 mg 04/03/17 09:00 04/29/17 07:59 Zestril PO 2.5 mg DAILY ARDEN Administration Metformin HCl 1,000 mg 04/12/17 20:00 04/29/17 07:56 Glucophage PO 1,000 mg BIDWM ARDEN Administration Multivitamins 1 tab 03/16/17 08:00 04/29/17 07:58 Theragran PO 1 tab DAILYWM ARDEN Administration Mupirocin 1 applic 03/21/17 21:00 04/29/17 08:05 Bactroban 2% Oint TOP 1 applic BID ARDEN Administration Nystatin 1 applic 03/19/17 14:00 04/29/17 08:05 Nystop TOP 1 applic BID ARDEN Administration Nystatin 1 applic 04/19/17 21:00 04/29/17 08:05 Mycostatin Cream TOP 1 applic BID ARDEN Administration Eybgv-2-Burp Ethyl Esters 2 gm 03/15/17 21:00 04/29/17 07:59 Lovaza PO 2 gm BID ARDEN Administration Polyethylene Glycol 17 gm 03/17/17 09:00 04/29/17 07:55 Miralax PO 17 gm DAILY ARDEN Administration Senna 8.6 - 17.2 mg 03/17/17 09:00 04/29/17 07:58 Senokot PO 8.6 mg DAILY ARDEN Administration Sertraline HCl 300 mg 03/15/17 21:00 04/28/17 21:18 Zoloft PO 300 mg QPM ARDEN Administration - Lab Result Lab results reviewed: Yes Fish Bone Diagrams: 04/10/17 05:15 04/25/17 10:40 Other Lab Results: Abnormal Lab Results 04/28/17 04/28/17 04/28/17 07:26 11:15 20:37 POC Whole Bld Glucose 192 mg/dL H mg/dL 211 mg/dL H mg/dL 117 mg/dL H mg/dL (70 - 100) (70 - 100) (70 - 100) 04/29/17 11:22 POC Whole Bld Glucose 221 mg/dL H mg/dL (70 - 100) - EKG Results EKG Interpreted Independently: No EKG Comparison: Unchanged from prior EKG - Additional Planning Condition/Complexity: Improved Plan Discussed with:: Patient, Case Management Time Spent: 15-30 minutes Additional Planning Notes: Patient is pending placement with rehab. Peer to peer expected in next 24-48 hours for qualificatione with coordinated care. Patient is still unable to ambulate without assist and will need rehab to strengthen his lower body and help to resume to his ADL's. Bariatric bed and equipment is pending delivery to rehab center. Plan to discharge patient in the next 48 hours pending placement Subjective - Subjective Patient Reports: Feeling Better, Resting Comfortably, No Complaints, Other ( patient has no chest pain or shortness of breath. No nausea or vomiting. no diarrhea or constipation. positive for weakness and fatigue with weakness to lower extremities) Nursing Reports: No Complaints Objective Vital Signs: Vital Signs - 24 hr 04/28/17 04/29/17 04/29/17 16:10 01:36 08:05 Temperature 36.5 C 36.8 C 36.8 C Heart Rate [ 81 89 89 Brachial] Respiratory 16 18 16 Rate Blood Pressure 117/72 101/58 L 115/73 [Left Brachial artery] O2 Saturation 96 96 97 Oxygen O2 Source [Without Activity] trach blow by O2 Source trac collar I&O (Last 24 Hrs): Intake and Output Totals x24h 04/27/17 04/28/17 04/29/17 23:59 23:59 23:59 Intake Total 3380 3769 1662 Output Total 2255 2910 1575 Balance -1135 -781 87 General: Alert, Oriented x3, Cooperative HEENT: PERRLA Neck: Supple, No JVD, No thyromegaly Lymphatic: no adenopathy Neuro: Alert, CN 2-12 Grossly Intact, Oriented Times 3 Cardiovascular: Normal S1, Normal S2, No murmurs Respiratory: No respiratory distress, Breath sounds nml Abdomen: Normal bowel sounds, No tenderness, No masses Extremities: No clubbing, No cyanosis, Normal pulses, No tenderness/swelling Skin: No rashes, No breakdown - Results Results: Laboratory Results WBC 7.5 x10^3/uL (4.8-10.8) 04/10/17 05:15 RBC 4.79 10^6/uL (4.70-6.10) 04/10/17 05:15 Hgb 13.9 g/dL (14.0-18.0) L 04/10/17 05:15 Hct 41.5 % (42.0-52.0) L 04/10/17 05:15 MCV 86.6 fL (80.0-94.0) 04/10/17 05:15 MCH 29.1 pg (27.0-31.0) 04/10/17 05:15 MCHC 33.6 g/dL (32.0-36.0) 04/10/17 05:15 RDW 13.5 % (12.0-15.0) 04/10/17 05:15 Plt Count 233 10^3/uL (130-450) 04/10/17 05:15 MPV 7.6 fL (7.4-11.4) 04/10/17 05:15 Neut # 3.8 10^3/uL (1.5-6.6) 04/10/17 05:15 Lymph # 2.4 10^3/uL (1.5-3.5) 04/10/17 05:15 [place] # 0.6 10^3/uL (0.0-1.0) 04/10/17 05:15 Eos # 0.6 10^3/uL (0.0-0.7) 04/10/17 05:15 Baso # 0.1 10^3/uL (0.0-0.1) 04/10/17 05:15 Absolute Nucleated RBC 0.01 x10^3/uL 04/10/17 05:15 Nucleated RBCs 0.1 /100WBC 04/10/17 05:15 Bld Gas Analysis Time 0803/18/17 08:23 Sample Site RIGHT RADIAL 03/18/17 08:23 ABG pH 7.43 (7.35-7.45) 03/18/17 08:23 ABG pCO2 60 mmHg (34-45) H* 03/18/17 08:23 ABG pO2 84 mmHg (80-100) 03/18/17 08:23 ABG HCO3 39.1 mmol/L (22.0-26.0) H 03/18/17 08:23 ABG Total CO2 40.9 MMOL/L (21.0-29.0) H* 03/18/17 08:23 ABG O2 Saturation 96 % (94-98) 03/18/17 08:23 ABG Base Excess 12.4 mmol/L (-2.0-3.0) H 03/18/17 08:23 Avinash Test POSITIVE 03/18/17 08:23 O2 Delivery Device VENTILATOR 03/18/17 08:23 O2 Liters/Min 4.00 LPM 03/18/17 08:23 Sodium 132 mmol/L (135-145) L 04/25/17 10:40 Potassium 4.0 mmol/L (3.5-5.0) 04/25/17 10:40 Chloride 92 mmol/L (101-111) L 04/25/17 10:40 Carbon Dioxide 30 mmol/L (21-32) 04/25/17 10:40 Anion Gap 10.0 (6-13) 04/25/17 10:40 BUN 27 mg/dL (6-20) H 04/25/17 10:40 Creatinine 1.2 mg/dL (0.6-1.2) 04/25/17 10:40 Estimated GFR (MDRD) 62 (>89) L 04/25/17 10:40 Glucose 242 mg/dL (70-100) H 04/25/17 10:40 POC Whole Bld Glucose 221 mg/dL (70 - 100) H 04/29/17 11:22 Calcium 9.7 mg/dL (8.5-10.3) 04/25/17 10:40 Ionized Calcium NO 03/31/17 05:11 Phosphorus 3.5 mg/dL (2.5-4.6) 03/31/17 05:11 Magnesium 1.9 mg/dL (1.7-2.8) 03/31/17 05:11 Total Bilirubin 0.4 mg/dL (0.2-1.0) 04/10/17 05:15 Direct Bilirubin 0.1 mg/dL (0.1-0.5) 03/21/17 06:00 AST 20 IU/L (10-42) 04/10/17 05:15 ALT 18 IU/L (10-60) 04/10/17 05:15 Alkaline Phosphatase 59 IU/L (42-121) 04/10/17 05:15 Troponin I < 0.04 ng/mL (<0.49) 03/16/17 11:57 B-Natriuretic Peptide 51 pg/mL (5-100) 03/16/17 11:57 Total Protein 6.5 g/dL (6.7-8.2) L 04/10/17 05:15 Albumin 3.5 g/dL (3.2-5.5) 04/10/17 05:15 Globulin 3.0 g/dL (2.1-4.2) 04/10/17 05:15 Albumin/Globulin Ratio 1.2 (1.0-2.2) 04/10/17 05:15 - Procedures Procedures: Procedures VENOUS CATHETERIZATION NEC (05/21/14)
[2017-04-29] MEDS: GABAPENTIN 100 MG CAPSULE PO SCH (21:53)
[2017-04-29] MEDS: ATORVASTATIN 10 MG TABLET PO SCH (21:53)
[2017-04-29] MEDS: SERTRALINE 50 MG TABLET PO SCH (21:54)
[2017-04-30] MEDS: HYDROcod/ACETAM 10 MG/325 MG TABLET PO PRN ×4 (04:50→18:40)
[2017-04-30 06:28] LABS: BASOPHILS # (AUTO) 0.1 10^3/uL (0.0-0.1); BASOPHILS % (AUTO) 0.9 %; EOSINOPHILS # (AUTO) 0.4 10^3/uL (0.0-0.7); EOSINOPHILS % (AUTO) 4.8 %; HCT - HEMATOCRIT 40.9 % (42.0-52.0); HGB - HEMOGLOBIN 13.9 g/dL (14.0-18.0); LYMPHOCYTES # (AUTO) 2.4 10^3/uL (1.5-3.5); LYMPHOCYTES % (AUTO) 30.3 %; MEAN CORPUSCULAR HEMOGLOBIN 29.1 pg (27.0-31.0); MEAN CORPUSCULAR VOLUME 85.6 fL (80.0-94.0); MEAN PLATELET VOLUME 7.8 fL (7.4-11.4); MONOCYTES # (AUTO) 0.7 10^3/uL (0.0-1.0); MONOCYTES % (AUTO) 8.6 %; NEUTROPHILS # (AUTO) 4.4 10^3/uL (1.5-6.6); NEUTROPHILS % (AUTO) 55.4 %; NUCLEATED RED BLOOD CELLS AUTO 0.1 /100WBC; RED BLOOD COUNT 4.78 10^6/uL (4.70-6.10); RED CELL DISTRIBUTION WIDTH 13.3 % (12.0-15.0); UNCORRECTED WHITE BLOOD COUNT 7.9 x10^3/uL; WHITE BLOOD COUNT 7.9 x10^3/uL (4.8-10.8)
[2017-04-30 06:37] LABS: CALCIUM 9.6 mg/dL (8.5-10.3); CREATININE 1.1 mg/dL (0.6-1.2); POTASSIUM 4.5 mmol/L (3.5-5.0)
--- NOTE | 2017-04-30 07:13 | PROVIDER PROGRESS NOTE ---
Assessment/Plan - Problem List (1) Diabetes type 2, uncontrolled Qualifiers: Diabetes mellitus complication status: with kidney complications Diabetes mellitus complication detail: with microalbuminuria Diabetes mellitus technician terminal and repeater insulin use: with technician terminal and repeater use Qualified Code(s): E11.29 - Type 2 diabetes mellitus with other diabetic kidney complication; E11.65 - Type 2 diabetes mellitus with hyperglycemia; R80.9 - Proteinuria, unspecified; Z79.4 - terminal worker (current) use of insulin Assessment/Plan: improving and stable. continue with diabetic diet and accuchecks with sliding scale insulin. continue home medications for diabetes (2) Fracture of distal end of tibia Assessment/Plan: improving. patient is working with nursing staff to get up to chair with pivot. He is sitting in wheelchair and up with assist. He is requiring more Physical therapy to be back at baseline since he is non weight bearing on one leg. He is able to pivot to chair with mild difficulty. (3) Super obesity Assessment/Plan: stable. continue to monitor daily weights and low calorie diet. carb controlled diet ordered (4) Atrial fibrillation with RVR Assessment/Plan: stable. continue with home medications for AFib as prescribed. - Current Meds Current Meds: Current Medications Generic Name Dose Route Start Last Admin Trade Name Freq PRN Reason Stop Dose Admin Acetaminophen/Hydrocodone Bitart 1 tab 03/18/17 15:46 04/13/17 22:22 [place]wn 10 Mg/325 Mg PO 1 tab Q4HR PRN Administration PAIN Acetaminophen/Hydrocodone Bitart 2 tab 03/18/17 15:46 04/30/17 04:50 [place]wn 10 Mg/325 Mg PO 2 tab Q4HR PRN Administration PAIN Amiodarone HCl 200 mg 03/31/17 09:00 04/29/17 07:57 Pacerone PO 200 mg DAILY ARDEN Administration Aspirin 81 mg 03/21/17 09:00 04/29/17 07:59 Ecotrin PO 81 mg DAILY ARDEN Administration Atorvastatin Calcium 10 mg 03/15/17 21:00 04/29/17 21:53 Lipitor PO 10 mg QPM ARDEN Administration Baclofen 10 mg 03/15/17 16:40 04/26/17 23:51 Lioresal PO 10 mg TID PRN Administration Cramp Docusate Sodium 250 - 500 mg 03/17/17 09:00 04/29/17 08:00 Colace 250mg Capsule PO 250 mg DAILY ARDEN Administration Enoxaparin Sodium 40 mg 03/17/17 09:00 04/29/17 08:01 Lovenox SUBQ 40 mg DAILY ARDEN Administration Fenofibrate 144 mg 03/16/17 09:00 04/29/17 07:57 Tricor PO 144 mg DAILY ARDEN Administration Gabapentin 200 mg 03/15/17 21:00 04/29/17 21:53 Neurontin PO 200 mg QPM ARDEN Administration Insulin Aspart 3 - 11 unit 03/30/17 12:00 04/29/17 21:54 Novolog SUBQ 3 unit 0800,1200,1700,2100 ARDEN Administration Protocol Insulin Aspart 40 unit 04/17/17 11:19 04/29/17 18:20 Novolog SUBQ 40 unit TIDWM ARDEN Administration Protocol Insulin Glargine 50 unit 04/27/17 14:02 04/29/17 21:54 Lantus Solostar SUBQ 50 unit BID ARDEN Administration Lisinopril 2.5 mg 04/03/17 09:00 04/29/17 07:59 Zestril PO 2.5 mg DAILY ARDEN Administration Metformin HCl 1,000 mg 04/12/17 20:00 04/29/17 18:20 Glucophage PO 1,000 mg BIDWM ARDEN Administration Multivitamins 1 tab 03/16/17 08:00 04/29/17 07:58 Theragran PO 1 tab DAILYWM ARDEN Administration Mupirocin 1 applic 03/21/17 21:00 04/29/17 21:55 Bactroban 2% Oint TOP 1 applic BID ARDEN Administration Nystatin 1 applic 03/19/17 14:00 04/29/17 21:55 Nystop TOP 1 applic BID ARDEN Administration Nystatin 1 applic 04/19/17 21:00 04/29/17 21:55 Mycostatin Cream TOP 1 applic BID ARDEN Administration [id number]-[id number]-Cnnn Ethyl Esters 2 gm 03/15/17 21:00 04/29/17 21:53 Lovaza PO 2 gm BID ARDEN Administration Polyethylene Glycol 17 gm 03/17/17 09:00 04/29/17 07:55 Miralax PO 17 gm DAILY ARDEN Administration Senna 8.6 - 17.2 mg 03/17/17 09:00 04/29/17 07:58 Senokot PO 8.6 mg DAILY ARDEN Administration Sertraline HCl 300 mg 03/15/17 21:00 04/29/17 21:54 Zoloft PO 300 mg QPM ARDEN Administration - Lab Result Lab results reviewed: Yes Fish Bone Diagrams: 04/30/17 06:11 04/30/17 06:11 Other Lab Results: Abnormal Lab Results 04/28/17 04/29/17 04/29/17 20:37 11:22 17:01 Hgb Hct Chloride BUN Estimated GFR (MDRD) Glucose POC Whole Bld Glucose 117 mg/dL H mg/dL 221 mg/dL H mg/dL 136 mg/dL H mg/dL (70 - 100) (70 - 100) (70 - 100) 04/29/17 04/30/17 04/30/17 20:34 06:11 06:11 Hgb 13.9 g/dL L g/dL (14.0-18.0) Hct 40.9 % L % (42.0-52.0) Chloride 97 mmol/L L mmol/L (101-111) BUN 27 mg/dL H mg/dL (6-20) Estimated GFR (MDRD) 69 L (>89) Glucose 160 mg/dL H mg/dL (70-100) POC Whole Bld Glucose 174 mg/dL H mg/dL (70 - 100) - EKG Results EKG Interpreted Independently: No - Additional Planning Condition/Complexity: Stable Consult/Specialty: OT, PT Plan Discussed with:: Patient, Case Management Time Spent: 31-60 minutes Additional Planning Notes: Patient is pending placement for rehab. Waiting on bariatric bed due to weight at [facility]. Patient was able to move from bed to wheelchair with assist from PT and nursing by pivoting on the noninjured leg. He tolerated well. He will need daily deconditioning to return to baseline and ambulate without assist. Plan to send to rehab as soon as bed and equipment available. Objective Vital Signs: Vital Signs - 24 hr 04/29/17 04/29/17 04/29/17 08:05 16:00 23:40 Temperature 36.8 C 36.8 C 37.0 C Heart Rate [ 89 89 86 Brachial] Respiratory 16 16 18 Rate Blood Pressure 115/73 109/69 [Left Brachial artery] Blood Pressure 110/68 [Left Radial artery] O2 Saturation 97 96 97 Oxygen O2 Source [Without Activity] trach blow by O2 Source Room air I&O (Last 24 Hrs): Intake and Output Totals x24h 04/28/17 04/29/17 04/30/17 23:59 23:59 23:59 Intake Total 3769 2612 800 Output Total 4550 3200 1640 Balance -781 -588 -840 General: Alert, Oriented x3 HEENT: Atraumatic, PERRLA Neck: Supple, No JVD, No thyromegaly, Other (trach in place, chronic) Lymphatic: no adenopathy Neuro: Alert, CN 2-12 Grossly Intact, Oriented Times 3 Cardiovascular: Regular rate, Normal S1, Normal S2 Respiratory: Chest non-tender, No respiratory distress, Breath sounds nml Abdomen: Normal bowel sounds, Soft, No hepatospenomegaly, No masses Extremities: No clubbing, No cyanosis, No edema Skin: No rashes - Results Results: Laboratory Results WBC 7.9 x10^3/uL (4.8-10.8) 04/30/17 06:11 RBC 4.78 10^6/uL (4.70-6.10) 04/30/17 06:11 Hgb 13.9 g/dL (14.0-18.0) L 04/30/17 06:11 Hct 40.9 % (42.0-52.0) L 04/30/17 06:11 MCV 85.6 fL (80.0-94.0) 04/30/17 06:11 MCH 29.1 pg (27.0-31.0) 04/30/17 06:11 MCHC 34.0 g/dL (32.0-36.0) 04/30/17 06:11 RDW 13.3 % (12.0-15.0) 04/30/17 06:11 Plt Count 285 10^3/uL (130-450) 04/30/17 06:11 MPV 7.8 fL (7.4-11.4) 04/30/17 06:11 Neut # 4.4 10^3/uL (1.5-6.6) 04/30/17 06:11 Lymph # 2.4 10^3/uL (1.5-3.5) 04/30/17 06:11 [place] # 0.7 10^3/uL (0.0-1.0) 04/30/17 06:11 Eos # 0.4 10^3/uL (0.0-0.7) 04/30/17 06:11 Baso # 0.1 10^3/uL (0.0-0.1) 04/30/17 06:11 Absolute Nucleated RBC 0.00 x10^3/uL 04/30/17 06:11 Nucleated RBCs 0.1 /100WBC 04/30/17 06:11 Bld Gas Analysis Time 82203/18/17 08:23 Sample Site RIGHT RADIAL 03/18/17 08:23 ABG pH 7.43 (7.35-7.45) 03/18/17 08:23 ABG pCO2 60 mmHg (34-45) H* 03/18/17 08:23 ABG pO2 84 mmHg (80-100) 03/18/17 08:23 ABG HCO3 39.1 mmol/L (22.0-26.0) H 03/18/17 08:23 ABG Total CO2 40.9 MMOL/L (21.0-29.0) H* 03/18/17 08:23 ABG O2 Saturation 96 % (94-98) 03/18/17 08:23 ABG Base Excess 12.4 mmol/L (-2.0-3.0) H 03/18/17 08:23 Avinash Test POSITIVE 03/18/17 08:23 O2 Delivery Device VENTILATOR 03/18/17 08:23 O2 Liters/Min 4.00 LPM 03/18/17 08:23 Sodium 137 mmol/L (135-145) 04/30/17 06:11 Potassium 4.5 mmol/L (3.5-5.0) 04/30/17 06:11 Chloride 97 mmol/L (101-111) L 04/30/17 06:11 Carbon Dioxide 31 mmol/L (21-32) 04/30/17 06:11 Anion Gap 9.0 (6-13) 04/30/17 06:11 BUN 27 mg/dL (6-20) H 04/30/17 06:11 Creatinine 1.1 mg/dL (0.6-1.2) 04/30/17 06:11 Estimated GFR (MDRD) 69 (>89) L 04/30/17 06:11 Glucose 160 mg/dL (70-100) H 04/30/17 06:11 POC Whole Bld Glucose 174 mg/dL (70 - 100) H 04/29/17 20:34 Calcium 9.6 mg/dL (8.5-10.3) 04/30/17 06:11 Ionized Calcium NO 03/31/17 05:11 Phosphorus 3.5 mg/dL (2.5-4.6) 03/31/17 05:11 Magnesium 1.9 mg/dL (1.7-2.8) 03/31/17 05:11 Total Bilirubin 0.4 mg/dL (0.2-1.0) 04/10/17 05:15 Direct Bilirubin 0.1 mg/dL (0.1-0.5) 03/21/17 06:00 AST 20 IU/L (10-42) 04/10/17 05:15 ALT 18 IU/L (10-60) 04/10/17 05:15 Alkaline Phosphatase 59 IU/L (42-121) 04/10/17 05:15 Troponin I < 0.04 ng/mL (<0.49) 03/16/17 11:57 B-Natriuretic Peptide 51 pg/mL (5-100) 03/16/17 11:57 Total Protein 6.5 g/dL (6.7-8.2) L 04/10/17 05:15 Albumin 3.5 g/dL (3.2-5.5) 04/10/17 05:15 Globulin 3.0 g/dL (2.1-4.2) 04/10/17 05:15 Albumin/Globulin Ratio 1.2 (1.0-2.2) 04/10/17 05:15 - Procedures Procedures: Procedures VENOUS CATHETERIZATION NEC (05/21/14)
[2017-04-30] MEDS: metFORMIN 500 MG TABLET PO SCH ×2 (09:31→17:12)
[2017-04-30] MEDS: MULTIVITAMIN TABLET PO SCH (09:32)
[2017-04-30] MEDS: ASPIRIN EC 81 MG TABLET PO SCH (09:32)
[2017-04-30] MEDS: SENNA 8.6 MG TABLET PO SCH (09:32)
[2017-04-30] MEDS: FENOFIBRATE 48 MG TABLET PO SCH (09:33)
[2017-04-30] MEDS: AMIODARONE 200 MG TABLET PO SCH (09:33)
[2017-04-30] MEDS: LISINOPRIL 5 MG TABLET PO SCH (09:33)
[2017-04-30] MEDS: DOCUSATE SODIUM 250 MG CAPSULE PO SCH (09:34)
[2017-04-30] MEDS: OMEGA-3 ACID ETHYL ESTERS 1 GM CAPSULE PO SCH ×2 (09:34→20:22)
[2017-04-30] MEDS: INSULIN ASPART 300 UNIT/3 ML PEN SUBQ SCH ×7 (09:35→20:49)
[2017-04-30] MEDS: INSULIN GLARGINE 300 UNIT/3 ML PEN SUBQ SCH ×2 (09:36→20:54)
[2017-04-30] MEDS: ENOXAPARIN 40 MG/0.4 ML SYRINGE SUBQ SCH (09:37)
[2017-04-30] MEDS: NYSTATIN CREAM 15 GM TUBE TOP SCH ×2 (11:53→20:23)
[2017-04-30] MEDS: MUPIROCIN 2% OINT 22 GM TUBE TOP SCH ×2 (11:54→20:24)
[2017-04-30] MEDS: POLYETHYLENE GLYCOL 3350 17 GM PACKET PO SCH (11:55)
[2017-04-30] MEDS: NYSTATIN POWDER 15 GM TOP SCH ×2 (11:55→20:23)
[2017-04-30] MEDS: GABAPENTIN 100 MG CAPSULE PO SCH (20:22)
[2017-04-30] MEDS: ATORVASTATIN 10 MG TABLET PO SCH (20:22)
[2017-04-30] MEDS: SERTRALINE 50 MG TABLET PO SCH (20:23)
[2017-05-01] MEDS: HYDROcod/ACETAM 10 MG/325 MG TABLET PO PRN ×4 (00:53→20:29)
[2017-05-01] MEDS: POLYETHYLENE GLYCOL 3350 17 GM PACKET PO SCH (08:34)
[2017-05-01] MEDS: metFORMIN 500 MG TABLET PO SCH ×2 (08:36→17:18)
[2017-05-01] MEDS: SENNA 8.6 MG TABLET PO SCH (08:37)
[2017-05-01] MEDS: FENOFIBRATE 48 MG TABLET PO SCH (08:37)
[2017-05-01] MEDS: ASPIRIN EC 81 MG TABLET PO SCH (08:37)
[2017-05-01] MEDS: DOCUSATE SODIUM 250 MG CAPSULE PO SCH (08:38)
[2017-05-01] MEDS: AMIODARONE 200 MG TABLET PO SCH (08:38)
[2017-05-01] MEDS: OMEGA-3 ACID ETHYL ESTERS 1 GM CAPSULE PO SCH ×2 (08:38→21:08)
[2017-05-01] MEDS: MULTIVITAMIN TABLET PO SCH (08:39)
[2017-05-01] MEDS: LISINOPRIL 5 MG TABLET PO SCH (08:39)
[2017-05-01] MEDS: INSULIN ASPART 300 UNIT/3 ML PEN SUBQ SCH ×7 (08:40→21:08)
[2017-05-01] MEDS: INSULIN GLARGINE 300 UNIT/3 ML PEN SUBQ SCH ×2 (08:41→21:08)
[2017-05-01] MEDS: ENOXAPARIN 40 MG/0.4 ML SYRINGE SUBQ SCH (08:43)
[2017-05-01] MEDS: MUPIROCIN 2% OINT 22 GM TUBE TOP SCH ×2 (08:49→21:09)
[2017-05-01] MEDS: NYSTATIN POWDER 15 GM TOP SCH ×2 (08:57→21:09)
[2017-05-01] MEDS: NYSTATIN CREAM 15 GM TUBE TOP SCH ×2 (08:57→21:09)
--- NOTE | 2017-05-01 11:15 | PROVIDER PROGRESS NOTE ---
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 continue with diabetic diet and checking blood glucose. continue on sliding scale insulin as needed. (2) Fracture of distal end of tibia Qualifiers: Encounter type: initial encounter Fracture type: closed Assessment/Plan: improving. continue with course of care and pending rehab placement. physical therapy is working with patient along with nursing to have him out of the bed and in wheelchair. patient can pivot to chair at this time. (3) Super obesity Assessment/Plan: chronic but improving. patient has lost 50 pounds while hospitalized. continue with daily weights and diabetic diet. encourage ambulation daily (4) Atrial fibrillation with RVR Assessment/Plan: stable. continue with heart and blood pressure medications. telemetry monitoring as needed. (5) Physical deconditioning Assessment/Plan: acute. patient is needing rehab for the tibia fracture. He is trying to ambulate with nursing but will need PT to help with ambulation until he is improved and full weight bearing. - Current Meds Current Meds: Current Medications Generic Name Dose Route Start Last Admin Trade Name Freq PRN Reason Stop Dose Admin Acetaminophen/Hydrocodone Bitart 1 tab 03/18/17 15:46 04/13/17 22:22 [place] 10 Mg/325 Mg PO 1 tab Q4HR PRN Administration PAIN Acetaminophen/Hydrocodone Bitart 2 tab 03/18/17 15:46 05/01/17 06:03 [place] 10 Mg/325 Mg PO 2 tab Q4HR PRN Administration PAIN Amiodarone HCl 200 mg 03/31/17 09:00 05/01/17 08:38 Pacerone PO 200 mg DAILY ARDEN Administration Aspirin 81 mg 03/21/17 09:00 05/01/17 08:37 Ecotrin PO 81 mg DAILY ARDEN Administration Atorvastatin Calcium 10 mg 03/15/17 21:00 04/30/17 20:22 Lipitor PO 10 mg QPM ARDEN Administration Baclofen 10 mg 03/15/17 16:40 04/26/17 23:51 Lioresal PO 10 mg TID PRN Administration Cramp Docusate Sodium 250 - 500 mg 03/17/17 09:00 05/01/17 08:38 Colace 250mg Capsule PO 250 mg DAILY ARDEN Administration Enoxaparin Sodium 40 mg 03/17/17 09:00 05/01/17 08:43 Lovenox SUBQ 40 mg DAILY ARDEN Administration Fenofibrate 144 mg 03/16/17 09:00 05/01/17 08:37 Tricor PO 144 mg DAILY ARDEN Administration Gabapentin 200 mg 03/15/17 21:00 04/30/17 20:22 Neurontin PO 200 mg QPM ARDEN Administration Insulin Aspart 3 - 11 unit 03/30/17 12:00 05/01/17 08:40 Novolog SUBQ 5 unit 0800,1200,1700,2100 ARDEN Administration Protocol Insulin Aspart 40 unit 04/17/17 11:19 05/01/17 08:41 Novolog SUBQ 40 unit TIDWM ARDEN Administration Protocol Insulin Glargine 50 unit 04/27/17 14:02 05/01/17 08:41 Lantus Solostar SUBQ 50 unit BID ARDEN Administration Lisinopril 2.5 mg 04/03/17 09:00 05/01/17 08:39 Zestril PO 2.5 mg DAILY ARDEN Administration Metformin HCl 1,000 mg 04/12/17 20:00 05/01/17 08:36 Glucophage PO 1,000 mg BIDWM ARDEN Administration Multivitamins 1 tab 03/16/17 08:00 05/01/17 08:39 Theragran PO 1 tab DAILYWM ARDEN Administration Mupirocin 1 applic 03/21/17 21:00 05/01/17 08:49 Bactroban 2% Oint TOP 1 applic BID ARDEN Administration Nystatin 1 applic 03/19/17 14:00 05/01/17 08:57 Nystop TOP 1 applic BID ARDEN Administration Nystatin 1 applic 04/19/17 21:00 05/01/17 08:57 Mycostatin Cream TOP 1 applic BID ARDEN Administration [id number] Ethyl Esters 2 gm 03/15/17 21:00 05/01/17 08:38 Lovaza PO 2 gm BID ARDEN Administration Polyethylene Glycol 17 gm 03/17/17 09:00 05/01/17 08:34 Miralax PO 17 gm DAILY ARDEN Administration Senna 8.6 - 17.2 mg 03/17/17 09:00 05/01/17 08:37 Senokot PO 8.6 mg DAILY ARDEN Administration Sertraline HCl 300 mg 03/15/17 21:00 04/30/17 20:23 Zoloft PO 300 mg QPM ARDEN Administration - Lab Result Lab results reviewed: Yes Fish Bone Diagrams: 04/30/17 06:11 04/30/17 06:11 - EKG Results EKG Interpreted Independently: No - Additional Planning Condition/Complexity: Improved Consult/Specialty: OT, PT Plan Discussed with:: Patient, Case Management Time Spent: 31-60 minutes Additional Planning Notes: Patient is still pending discharge to rehab. He is needing a bariatric bed placement. He is needing rehab for deconditioning related to his tibia fracture and inability to perform ADL's at home. He is improving but needs assist. He is at risk for worsening co morbid conditions and still needing PT assist. Plan to discharge to rehab once bed available and bariatric equipment available. Peer to peer review needed and [facility] was contacted regarding patient stay from April 17- and qualification for inpatient stay. Subjective - Subjective Patient Reports: Feeling Better, Resting Comfortably, No Complaints Nursing Reports: No Complaints (he denies nausea, vomiting, diarrhea, constipation, hematuria, dysuria, headache or numbness or tingling to extremities.) Objective Vital Signs: Vital Signs - 24 hr 04/30/17 05/01/17 05/01/17 16:00 00:00 08:00 Temperature 36.4 C L 36.8 C 36.9 C Heart Rate [ 82 89 84 Brachial] Respiratory 16 18 17 Rate Blood Pressure 116/65 111/75 [Left Brachial artery] Blood Pressure 104/68 [Left Radial artery] O2 Saturation 100 97 97 Oxygen O2 Source [Without Activity] trach blow by O2 Source trach I&O (Last 24 Hrs): Intake and Output Totals x24h 04/29/17 04/30/17 05/01/17 23:59 23:59 23:59 Intake Total 2612 3441 560 Output Total 3200 8790 1900 Balance -588 -1069 -1340 General: Alert, Oriented x3, Cooperative HEENT: Atraumatic, PERRLA Neck: Supple, No JVD, +2 carotid pulse wo bruit Lymphatic: no adenopathy Neuro: Alert, CN 2-12 Grossly Intact, Oriented Times 3 Cardiovascular: Regular rate, Normal S1, Normal S2 Respiratory: Chest non-tender, No respiratory distress, Breath sounds nml Abdomen: Normal bowel sounds, Soft, No tenderness, No hepatospenomegaly Genitourinary: No Mass Rectal: Non-Tender Extremities: No clubbing, No cyanosis Skin: No rashes, No breakdown - Results Results: Laboratory Results WBC 7.9 x10^3/uL (4.8-10.8) 04/30/17 06:11 RBC 4.78 10^6/uL (4.70-6.10) 04/30/17 06:11 Hgb 13.9 g/dL (14.0-18.0) L 04/30/17 06:11 Hct 40.9 % (42.0-52.0) L 04/30/17 06:11 MCV 85.6 fL (80.0-94.0) 04/30/17 06:11 MCH 29.1 pg (27.0-31.0) 04/30/17 06:11 MCHC 34.0 g/dL (32.0-36.0) 04/30/17 06:11 RDW 13.3 % (12.0-15.0) 04/30/17 06:11 Plt Count 285 10^3/uL (130-450) 04/30/17 06:11 MPV 7.8 fL (7.4-11.4) 04/30/17 06:11 Neut # 4.4 10^3/uL (1.5-6.6) 04/30/17 06:11 Lymph # 2.4 10^3/uL (1.5-3.5) 04/30/17 06:11 [place]y # 0.7 10^3/uL (0.0-1.0) 04/30/17 06:11 Eos # 0.4 10^3/uL (0.0-0.7) 04/30/17 06:11 Baso # 0.1 10^3/uL (0.0-0.1) 04/30/17 06:11 Absolute Nucleated RBC 0.00 x10^3/uL 04/30/17 06:11 Nucleated RBCs 0.1 /100WBC 04/30/17 06:11 Bld Gas Analysis Time 0803/18/17 08:23 Sample Site RIGHT RADIAL 03/18/17 08:23 ABG pH 7.43 (7.35-7.45) 03/18/17 08:23 ABG pCO2 60 mmHg (34-45) H* 03/18/17 08:23 ABG pO2 84 mmHg (80-100) 03/18/17 08:23 ABG HCO3 39.1 mmol/L (22.0-26.0) H 03/18/17 08:23 ABG Total CO2 40.9 MMOL/L (21.0-29.0) H* 03/18/17 08:23 ABG O2 Saturation 96 % (94-98) 03/18/17 08:23 ABG Base Excess 12.4 mmol/L (-2.0-3.0) H 03/18/17 08:23 Avinash Test POSITIVE 03/18/17 08:23 O2 Delivery Device VENTILATOR 03/18/17 08:23 O2 Liters/Min 4.00 LPM 03/18/17 08:23 Sodium 137 mmol/L (135-145) 04/30/17 06:11 Potassium 4.5 mmol/L (3.5-5.0) 04/30/17 06:11 Chloride 97 mmol/L (101-111) L 04/30/17 06:11 Carbon Dioxide 31 mmol/L (21-32) 04/30/17 06:11 Anion Gap 9.0 (6-13) 04/30/17 06:11 BUN 27 mg/dL (6-20) H 04/30/17 06:11 Creatinine 1.1 mg/dL (0.6-1.2) 04/30/17 06:11 Estimated GFR (MDRD) 69 (>89) L 04/30/17 06:11 Glucose 160 mg/dL (70-100) H 04/30/17 06:11 POC Whole Bld Glucose 179 mg/dL (70 - 100) H 05/01/17 11:11 Calcium 9.6 mg/dL (8.5-10.3) 04/30/17 06:11 Ionized Calcium NO 03/31/17 05:11 Phosphorus 3.5 mg/dL (2.5-4.6) 03/31/17 05:11 Magnesium 1.9 mg/dL (1.7-2.8) 03/31/17 05:11 Total Bilirubin 0.4 mg/dL (0.2-1.0) 04/10/17 05:15 Direct Bilirubin 0.1 mg/dL (0.1-0.5) 03/21/17 06:00 AST 20 IU/L (10-42) 04/10/17 05:15 ALT 18 IU/L (10-60) 04/10/17 05:15 Alkaline Phosphatase 59 IU/L (42-121) 04/10/17 05:15 Troponin I < 0.04 ng/mL (<0.49) 03/16/17 11:57 B-Natriuretic Peptide 51 pg/mL (5-100) 03/16/17 11:57 Total Protein 6.5 g/dL (6.7-8.2) L 04/10/17 05:15 Albumin 3.5 g/dL (3.2-5.5) 04/10/17 05:15 Globulin 3.0 g/dL (2.1-4.2) 04/10/17 05:15 Albumin/Globulin Ratio 1.2 (1.0-2.2) 04/10/17 05:15 - Procedures Procedures: Procedures VENOUS CATHETERIZATION NEC (05/21/14)
[2017-05-01] MEDS: ATORVASTATIN 10 MG TABLET PO SCH (21:07)
[2017-05-01] MEDS: GABAPENTIN 100 MG CAPSULE PO SCH (21:07)
[2017-05-01] MEDS: SERTRALINE 50 MG TABLET PO SCH (21:08)
[2017-05-02] MEDS: HYDROcod/ACETAM 10 MG/325 MG TABLET PO PRN ×5 (01:09→21:35)
[2017-05-02] MEDS: INSULIN ASPART 300 UNIT/3 ML PEN SUBQ SCH ×7 (08:37→21:33)
[2017-05-02] MEDS: AMIODARONE 200 MG TABLET PO SCH (08:39)
[2017-05-02] MEDS: MULTIVITAMIN TABLET PO SCH (08:39)
[2017-05-02] MEDS: metFORMIN 500 MG TABLET PO SCH ×2 (08:39→16:42)
[2017-05-02] MEDS: LISINOPRIL 5 MG TABLET PO SCH (08:40)
[2017-05-02] MEDS: DOCUSATE SODIUM 250 MG CAPSULE PO SCH (08:40)
[2017-05-02] MEDS: FENOFIBRATE 48 MG TABLET PO SCH (08:40)
[2017-05-02] MEDS: ENOXAPARIN 40 MG/0.4 ML SYRINGE SUBQ SCH (08:40)
[2017-05-02] MEDS: SENNA 8.6 MG TABLET PO SCH (08:41)
[2017-05-02] MEDS: POLYETHYLENE GLYCOL 3350 17 GM PACKET PO SCH (08:41)
[2017-05-02] MEDS: ASPIRIN EC 81 MG TABLET PO SCH (08:41)
[2017-05-02] MEDS: OMEGA-3 ACID ETHYL ESTERS 1 GM CAPSULE PO SCH ×2 (08:41→21:34)
[2017-05-02] MEDS: BACLOFEN 10 MG TABLET PO PRN (08:42)
[2017-05-02] MEDS: INSULIN GLARGINE 300 UNIT/3 ML PEN SUBQ SCH ×2 (08:43→21:33)
[2017-05-02] MEDS: NYSTATIN POWDER 15 GM TOP SCH ×2 (08:51→21:35)
[2017-05-02] MEDS: MUPIROCIN 2% OINT 22 GM TUBE TOP SCH ×2 (08:51→21:35)
[2017-05-02] MEDS: NYSTATIN CREAM 15 GM TUBE TOP SCH ×2 (08:51→21:35)
--- NOTE | 2017-05-02 13:10 | PROVIDER PROGRESS NOTE ---
Subjective - Subjective Pt reports feeling: No change Subjective: pt state he is doing well, no complaints Objective - Vital Signs/Intake & Output Reviewed Vital Signs: Yes Vital Signs: Vital Signs x48h Temp Pulse Resp BP Pulse Ox 05/02/17 08:00 36.8 C 85 16 112/73 98 Intake & Output: Intake & Output 04/29/17 04/30/17 05/01/17 05/02/17 23:59 23:59 23:59 23:59 Intake Total 2612 3441 1680 2150 Output Total 3200 4510 4330 2500 Balance -588 -1069 -2650 -350 - Objective General Appearance: positive: No acute distress, Alert Eyes Bilateral: positive: Normal inspection, PERRL, EOMI ENT: positive: ENT inspection nml, Pharynx nml, No signs of dehydration Neck: positive: Nml inspection, Thyroid nml, Trachea midline Respiratory: positive: Chest non-tender, No respiratory distress, Breath sounds nml Cardiovascular: positive: Regular rate & rhythm, No murmur, No gallop Peripheral Pulses: 2+ Radial (R), 2+ Radial (L), 2+ Dorsalis pedis (R), 2+ Dorsalis pedis (L) Abdomen: positive: Non-tender, Nml bowel sounds Skin: positive: Color nml, Warm Extremities: positive: Non-tender, Nml appearance Neurologic/Psychiatric: positive: Oriented x3, CN's nml (2-12), Motor nml, Sensation nml, Mood/affect nml - Lab Results Fish Bones: 04/30/17 06:11 04/30/17 06:11 Other Labs: Lab Results x24hrs 05/02/17 05/02/17 05/01/17 Range/Units 11:26 07:37 20:47 POC Whole Bld Glucose 146 H 150 H 126 H (70 - 100) mg/dL 05/01/17 05/01/17 05/01/17 Range/Units 19:02 16:42 15:02 POC Whole Bld Glucose 171 H 124 H 123 H (70 - 100) mg/dL 05/01/17 05/01/17 Range/Units 14:38 14:23 POC Whole Bld Glucose 67 L 56 L* (70 - 100) mg/dL Assessment/Plan - Problem List (1) Fracture of distal end of tibia Impression: vital and lab reviewed. stable, wait for replacement Qualifiers: Encounter type: initial encounter Fracture type: closed
[2017-05-02] MEDS: GABAPENTIN 100 MG CAPSULE PO SCH (21:34)
[2017-05-02] MEDS: SERTRALINE 50 MG TABLET PO SCH (21:34)
[2017-05-02] MEDS: ATORVASTATIN 10 MG TABLET PO SCH (21:35)
[2017-05-03] MEDS: HYDROcod/ACETAM 10 MG/325 MG TABLET PO PRN ×3 (03:46→18:19)
[2017-05-03] MEDS: INSULIN ASPART 300 UNIT/3 ML PEN SUBQ SCH ×7 (08:15→22:13)
[2017-05-03] MEDS: metFORMIN 500 MG TABLET PO SCH ×2 (08:19→18:21)
[2017-05-03] MEDS: MULTIVITAMIN TABLET PO SCH (08:20)
[2017-05-03] MEDS: AMIODARONE 200 MG TABLET PO SCH (08:20)
[2017-05-03] MEDS: ASPIRIN EC 81 MG TABLET PO SCH (08:20)
[2017-05-03] MEDS: ENOXAPARIN 40 MG/0.4 ML SYRINGE SUBQ SCH (08:21)
[2017-05-03] MEDS: DOCUSATE SODIUM 250 MG CAPSULE PO SCH (08:21)
[2017-05-03] MEDS: FENOFIBRATE 48 MG TABLET PO SCH (08:21)
[2017-05-03] MEDS: LISINOPRIL 5 MG TABLET PO SCH (08:22)
[2017-05-03] MEDS: SENNA 8.6 MG TABLET PO SCH (08:23)
[2017-05-03] MEDS: OMEGA-3 ACID ETHYL ESTERS 1 GM CAPSULE PO SCH ×2 (08:23→22:05)
[2017-05-03] MEDS: INSULIN GLARGINE 300 UNIT/3 ML PEN SUBQ SCH ×2 (10:41→22:08)
[2017-05-03] MEDS: POLYETHYLENE GLYCOL 3350 17 GM PACKET PO SCH (10:44)
[2017-05-03] MEDS: MUPIROCIN 2% OINT 22 GM TUBE TOP SCH ×2 (10:47→22:14)
[2017-05-03] MEDS: NYSTATIN POWDER 15 GM TOP SCH ×2 (10:54→22:15)
[2017-05-03] MEDS: NYSTATIN CREAM 15 GM TUBE TOP SCH ×2 (10:55→22:15)
--- NOTE | 2017-05-03 16:30 | PROVIDER PROGRESS NOTE ---
Subjective - Subjective Pt reports feeling: No change Subjective: no changing, per pt report Objective - Vital Signs/Intake & Output Intake & Output: Intake & Output 04/30/17 05/01/17 05/02/17 05/03/17 23:59 23:59 23:59 23:59 Intake Total 3441 1680 4040 2310 Output Total 4510 3387 8290 8317 Balance -1069 -2650 -435 -980 - Objective General Appearance: positive: No acute distress, Alert Eyes Bilateral: positive: Normal inspection, PERRL ENT: positive: ENT inspection nml, Pharynx nml, No signs of dehydration Neck: positive: Nml inspection, Thyroid nml, Trachea midline, Other (with trachostomy) Respiratory: positive: Chest non-tender, No respiratory distress, Breath sounds nml Cardiovascular: positive: Regular rate & rhythm, No murmur, No gallop Peripheral Pulses: 2+ Radial (R), 2+ Radial (L), 2+ Dorsalis pedis (R), 2+ Dorsalis pedis (L) Abdomen: positive: Non-tender, Nml bowel sounds Back: positive: Nml inspection Skin: positive: Color nml, Warm Extremities: positive: Non-tender Neurologic/Psychiatric: positive: Oriented x3, Motor nml, Sensation nml, Mood/ affect nml - Lab Results Fish Bones: 04/30/17 06:11 04/30/17 06:11 Other Labs: Lab Results x24hrs 05/03/17 05/02/17 Range/Units 11:33 21:31 POC Whole Bld Glucose 131 H 100 (70 - 100) mg/dL Assessment/Plan - Problem List (1) Fracture of distal end of tibia Impression: pt's vital and lab reviewed, stable, wait for replacement Qualifiers: Encounter type: initial encounter Fracture type: closed
[2017-05-03] MEDS: SERTRALINE 50 MG TABLET PO SCH (22:04)
[2017-05-03] MEDS: ATORVASTATIN 10 MG TABLET PO SCH (22:05)
[2017-05-03] MEDS: GABAPENTIN 100 MG CAPSULE PO SCH (22:05)
[2017-05-04] MEDS: HYDROcod/ACETAM 10 MG/325 MG TABLET PO PRN ×3 (00:21→11:36)
[2017-05-04 08:44] VITALS: BP 108/74
[2017-05-04] MEDS: metFORMIN 500 MG TABLET PO SCH (08:47)
[2017-05-04] MEDS: SENNA 8.6 MG TABLET PO SCH (08:47)
[2017-05-04] MEDS: ASPIRIN EC 81 MG TABLET PO SCH (08:48)
[2017-05-04] MEDS: MULTIVITAMIN TABLET PO SCH (08:48)
[2017-05-04] MEDS: DOCUSATE SODIUM 250 MG CAPSULE PO SCH (08:48)
[2017-05-04] MEDS: FENOFIBRATE 48 MG TABLET PO SCH (08:48)
[2017-05-04] MEDS: OMEGA-3 ACID ETHYL ESTERS 1 GM CAPSULE PO SCH (08:48)
[2017-05-04] MEDS: LISINOPRIL 5 MG TABLET PO SCH (08:49)
[2017-05-04] MEDS: INSULIN GLARGINE 300 UNIT/3 ML PEN SUBQ SCH (08:49)
[2017-05-04] MEDS: ENOXAPARIN 40 MG/0.4 ML SYRINGE SUBQ SCH (08:49)
[2017-05-04] MEDS: AMIODARONE 200 MG TABLET PO SCH (08:49)
[2017-05-04] MEDS: INSULIN ASPART 300 UNIT/3 ML PEN SUBQ SCH ×4 (08:50→12:03)
[2017-05-04] MEDS: POLYETHYLENE GLYCOL 3350 17 GM PACKET PO SCH (08:50)
[2017-05-04] MEDS: NYSTATIN CREAM 15 GM TUBE TOP SCH (11:57)
[2017-05-04] MEDS: MUPIROCIN 2% OINT 22 GM TUBE TOP SCH (11:57)
[2017-05-04] MEDS: NYSTATIN POWDER 15 GM TOP SCH (11:57)
--- NOTE | 2017-05-07 10:27 | DISCHARGE SUMMARY ---
DATE OF ADMISSION: 03/16/2017 DATE OF DISCHARGE: 05/04/2017 PRIMARY CARE PROVIDER: FELA Rowe DISCHARGE DIAGNOSES 1. Healthcare-associated pneumonia. 2. Fracture of the distal right tibia. 3. Atrial fibrillation with RVR. 4. Iatrogenic hypotension. 5. Tinea pedis. 6. Acute kidney injury. 7. Diabetes mellitus type 2 with microalbuminuria and peripheral neuropathy with long-term use of insulin. 8. Hypercapnia and metabolic acidosis secondary to attributed obstructive sleep apnea versus obesity hypoventilation syndrome. 9. Hypertension. 10. Constipation. 11. Residual right hemiplegia of old stroke. 12. Tracheostomy status. 13. Chronic depression. 14. Heel ulcer, stage 1 DISCHARGE MEDICATIONS 1. Insulin glargine 50 units subcu b.i.d., a.c. a.m. and p.m. 2. Aspartate insulin 35 units subcu t.i.d. with meals. 3. Metformin 1000 mg p.o. b.i.d. with meals. 4. [place] 10/325 two tablets every 4 hours as needed for pain. 5. Amiodarone 200 mg p.o. daily. 6. Aspirin 81 mg p.o. daily. 7. Lipitor 10 mg p.o. q. p.m. 8. Baclofen 10 mg p.o. t.i.d. p.r.n. 9. Colace 250 mg p.o. daily. 10. TriCor 144 mg p.o. daily. 11. Gabapentin 200 mg p.o. q. p.m. 12. Lisinopril 2.5 mg daily. 13. Multivitamin 1 tablet daily. 14. Mupirocin 2% ointment 1 application topically b.i.d. 15. Nystatin apply topically b.i.d. 16. [place]-3 2 grams p.o. b.i.d. 17. MiraLAX 17 grams p.o. daily. 18. Senna 8.6 mg p.o. daily. 19. Zoloft 300 mg p.o. daily. 20. Oxygen 2 liters by nasal cannula. PRINCIPAL PROCEDURES 1. Lower extremity right tibia x-ray follow up from March 09 shown right fibular neck nondisplaced fracture. Oblique fracture extending from the distal right tibia metadiaphyseal junction to anterior medial distal articular surface. Mild displacement has developed that was new along the posterior axis of the distal fibula fracture. 2. CT pulmonary angiogram negative for pulmonary embolus on March 16. 3. Chest x-ray on March 16 positive for mild central pulmonary vascular congestion interpreted as pneumonia. 4. Chest x-ray March 26 with subtle increased interstitial markings. No focal consolidation. 5. Ankle x-ray April 04 with the recent distal fibular fracture once again noted with extension of the fracture line into the base of the medial malleolus. Fracture line appears slightly wider. No callus formation. 6. X-ray March 25, 2017, ankle x-ray, slight interval increase in the separation of the posterior malleolar fracture fragment now 5 mm gap in the tibial articular surface with some posterior callus formation noted, but fracture lines remain readily evident. 7. Blood cultures no growth after 5 days from March 16. HISTORY: The patient is a 49-year-old morbidly obese white male who has had gastric bypass surgery in the remote past. Unfortunately, he suffered an aneurysmal bleed with subsequent right hemiplegia in 2007 and underwent aneurysmal clipping. He was hospitalized for 5 months and had been left with residual right-sided weakness and tracheostomy because of vocal cord paralysis. He lived in his own home and his elderly mother lived with him. He received [employer] to help him up to 7 hours a day. They helped clean house, helped bathe him , get food ready. Last year, he was able to stand and transfer with forearm braces and hands locked on 2 canes. He was able to get up to transfer to a chair that allowed him to go to the bathroom, feed himself, and he did have intact bowel and bladder control. On March 11 he got up, lost balance, fell over and heard a loud snap. He was brought to the emergency room where he had a distal right fibular fracture. Orthopedics was consulted and the emergency room physician was instructed to put him in a CAM boot nonweightbearing and he would be seen in the outpatient setting. As the patient was returned back to home in an ambulance (his obesity precludes him from ambulating freely) he started having palpitations. He has a long history of either PSVT or atrial fibrillation that would come and go. The ambulance brought him back to the emergency room. He was admitted overnight, atrial fibrillation converted on its own, and he was sent home. After being home, his mother called and said she cannot take care of him. Said over the last year he has become more and more bedbound and no longer able to transfer and she cannot take care of him and his [employer] providers cannot take care of him. As such, ambulance was called to pick him up and bring him to the hospital. He stayed in the emergency room from March 14 to March 16 awaiting placement. At that time, he did not have any acute care criteria for admission. While in the emergency room he developed cough, shortness of breath, and an elevated white cell count to 11. Chest x-ray showed a faint infiltrate as interpreted by the emergency room physician. Final report as above in the report list. As such, patient was admitted for a community-acquired pneumonia. He received 10 days of antibiotic therapy with blood cultures negative. A followup chest x-ray showed resolution of the pneumonia. During his stay, the following problems were addressed. First problem was that of his distal right tibial fracture. Dr. Claudy Garcia was consulted. Saw the patient after a few days, and repeat x-ray was done as above. The CAM boot and pressure of the CAM boot caused him to have a heel ulcer and severe tinea of the toes. The boot was removed, tinea was treated assiduously by nursing with excellent hygiene and skin care. Heel ulcer never progressed to a full skin breakthrough ulcer. That gradually healed on its own and the tinea resolved with topical Nystatin. This was in the evolved right foot. Atrial fibrillation with RVR was treated initially with diltiazem. However, that caused iatrogenic hypotension. I feel that in combination of the hypotension and mild dehydration he had acute kidney injury. Once we stopped the diltiazem, switched him over to tapering amiodarone and hydrated him, his acute kidney injury resolved. On admission, creatinine was 1. It peaked at 1.4 with the hypotension and then went back down to 1.1 by April 30. Type 2 diabetes mellitus with microalbuminuria and peripheral neuropathy were treated with the above insulin regime. During his stay, in spite of Lantus and high dose regular insulin, sugar remained consistently above 140 and at times 206 or 269 in the morning. Because of somnolence 1 day, blood gas and venous blood gas showed hypercapnia with metabolic acidosis. Some of it was attributed to undiagnosed obesity hypoventilation syndrome or obstructive sleep apnea. Those will need to be addressed with sleep study down the road if the patient is amenable and also some metformin use. Overall, carbon dioxide peaked at 40. By the time of discharge, his last carbon dioxide was 31 on April 30. Prior to admission, this patient was on lisinopril for blood pressure. That was continued at discharge at 2.5 mg as above. On the day of discharge, blood pressure was 108/74 and at midnight, had been 119/72. Constipation was treated with medication successfully. He continued to have residual right hemiplegia. Between that and his severe morbid obesity, made him an interesting rehab candidate. He was seen April 30. Physical therapy assisted nursing x3 with sideboard to wheelchair. He tolerated the wheelchair for 45 minutes. He went back to bed with a Juan Antonio for repositioning. The patient tolerated being up and use of adaptive transfers well. He does have a power wheelchair at home and we are hoping he can use it in a detention facility to be more mobile. It is hoped that he will get enough strength back to return to living at home with a [employer] provider again. That is his hope. Tracheostomy status as a residual of his previous hospitalization for his stroke in 2007 was noted. Patient uses disposable trach supplies. He refuses to do the permanent trach supply. At times, chronic depression would worsen. He did become tearful and states he really missed his mother and he missed his home and then he would recover quickly with emotional support. The only other problem noted during his stay was that of dental caries. Those were treated with mouthwash and toothbrush. Dr. Claudy Garcia saw the patient on April 25 and started a note. There is no assessment and plan noted by Dr. Garcia with final recommendations in the written record. Dr. Garcia reviewed all of his films. He requested the patient be advanced to weightbearing status but the patient had no safe way to get out of bed to even stand. No CAM boot was recommended because of ulcers and a previous episode of tinea. Nicolasa First noted that Dr. Garcia recommended a repeat x-ray in 4 weeks. The above widening of the bones was noted in the reports. The patient is transferred in stable condition to [facility] who finally accepted him in placement. On the day of discharge, temperature is 36.5 , pulse is 80, blood pressure 108/74, respirations 18, 96% with 2 liters. He is a morbidly obese pleasant, alert, oriented white male. He has a right hemiplegia. The tinea of his right foot between his toes and on the plantar aspect of his toes has completely resolved. The heel breakdown present on admission is completely resolved. The patient is at risk for further skin breakdown because of his weight, and should be rotated and skin cleaned regularly. He has a supple neck, severely diminished breath sounds at the bases but no labored respiration and otherwise clear without crackles, rhonchi, wheezing. He has a regular rate and rhythm. The abdomen is hugely obese, soft, nontender. He has a brief or pad underneath him. He is occasionally incontinent of urine. He has mild edema of the lower extremities that is nonpitting. This gentleman continues to have tracheostomy that he changes himself. He complains of bilateral hip pain that has been present for years, ever since he had his first hip surgery as a boy. He is able to voice his pain complaint very lucidly. He is to be followed up by his primary care provider in the detention facility. Again, this patient's plan is to get enough rehab to return to living at home with [facility] again. JOB #: [id number] EXT JOB #:[id number] GABINO
--- NOTE | 2017-05-08 07:28 | DISCHARGE SUMMARY ---
DATE OF ADMISSION: 03/16/2017 DATE OF DISCHARGE: 05/04/2017 CHIEF COMPLAINT: Basically, placement because the patient's family and mother cannot take care of the patient and made conference with the hospital and so returned to the hospital for replacement. Discharge diagnosis: (1) LORENA (acute kidney injury) resolved (2) Hypercapnia resolved (3) Pneumonia Impression: resolved (4) Atrial fibrillation with RVR stable, controlled (5) HTN (hypertension), benign stable, controlled (6) Diabetes type 2, uncontrolled stable, controlled (7) Super obesity advise pt loss of weight (8) Fracture of distal end of tibia stable, continue to monitor and treat (9) Athlete's foot, stable. Physical Examination: General Appearance: positive: No acute distress, Alert Eyes Bilateral: positive: PERRL ENT: positive: No signs of dehydration Neck: positive: No JVD Respiratory: positive: Chest non-tender, No respiratory distress, Breath sounds nml (diminished bases) Cardiovascular: positive: Regular rate & rhythm (distant heart sounds) Peripheral Pulses: 1+ Dorsalis pedis (R), 1+ Dorsalis pedis (L), 2+ Radial (R), 2+ Radial (L) Abdomen: positive: Non-tender, Nml bowel sounds, No distention Skin: positive: Color nml, Warm, Dry Extremities: positive: Non-tender, Nml appearance. negative: Pedal edema, Calf tenderness Neurologic/Psychiatric: positive: Oriented x3, Mood/affect nml MEDICATIONS AT TIME OF DISCHARGE 1. Metformin 1000 mg p.o. b.i.d. 2. Cardizem 120 mg p.o. b.i.d. 3. Zoloft 300 mg q.p.m. 4. Multiple vitamins, 1 each daily. 5. Lovastatin 40 mg p.o. q.p.m. 6. Lisinopril 10 mg p.o. b.i.d. 7. Insulin NovoLog 40 units subcu t.i.d. 8. [place] 10/325 q.6h. p.r.n. 9. Gabapentin 200 p.o. q.p.m. 10. Lasix 80 mg p.o. daily. 11. Fenofibrate 160 p.o. daily. 12. Baclofen 10 mg p.o. t.i.d. p.r.n. 13. Aspirin 81 mg p.o. daily. HOSPITAL COURSE: A 57-year-old male with a history of CVA with right hemiplegia and DM2, Obesity, and also patient recently had ankle fracture of his right ankle. Also, patient before was admitted for atrial fibrillation with RVR. Patient with recommendation to discharge to SNF and patient refused. Patient was released to home, but at home the mom called the hospitalist as she cannot take care of the patient and made conference, and the patient came back to the hospital for replacement. IMAGING STUDIES: Right ankle imaging study did have a 5 mm gap in the tibial surface in the lateral view. Chest x-ray revealed no focal consolidation. INTERVENTION: Patient treated with insulin with slide scale, and controlled his sugars. Patient also treated with pain medication for the ankle fracture. Patient is morbidly obese and PT limited for the patient because of his heavy weight and also the equipment to move the patient. Patient advised to follow up with PCP and Orthopedics in 1 week. Patient is discharged to [facility]. Patient will be cardiac, carb-conscious diet and activity as tolerated. Time spent on discharge was almost 50 minutes. JOB #: [id number] EXT JOB #:[id number] MTDElise
== END 2017-05-04 14:30 | DRG 194 ==
LOC: EDUNIT# → ED 09:39 → MS 03-16 13:55
PROVIDERS: ADMIT Specialist; ATTEND Specialist
DX: J18.1 Lobar pneumonia, unspecified organism (principal); N17.9 Acute kidney failure, unspecified; E66.2 Morbid (severe) obesity with alveolar hypoventilation; Z68.43 Body mass index [BMI] 50.0-59.9, adult; E87.4 Mixed disorder of acid-base balance; I69.251 Hemiplegia and hemiparesis following other nontraumatic intracranial hemorrhage affecting right dominant side; I48.92 Unspecified atrial flutter; S82.841K Displaced bimalleolar fracture of right lower leg, subsequent encounter for closed fracture with nonunion; Y95 Nosocomial condition; R09.02 Hypoxemia; I48.91 Unspecified atrial fibrillation; I95.89 Other hypotension; T46.1X5A Adverse effect of calcium-channel blockers, initial encounter; Y92.239 Unspecified place in hospital as the place of occurrence of the external cause; B35.3 Tinea pedis; E11.65 Type 2 diabetes mellitus with hyperglycemia; E11.42 Type 2 diabetes mellitus with diabetic polyneuropathy; E11.29 Type 2 diabetes mellitus with other diabetic kidney complication; R80.9 Proteinuria, unspecified; Z79.4 Long term (current) use of insulin; I10 Essential (primary) hypertension; K59.09 Other constipation; I69.298 Other sequelae of other nontraumatic intracranial hemorrhage; J38.00 Paralysis of vocal cords and larynx, unspecified; Z93.0 Tracheostomy status; F32.9 Major depressive disorder, single episode, unspecified; L89.610 Pressure ulcer of right heel, unstageable; L89.151 Pressure ulcer of sacral region, stage 1; S82.831D Other fracture of upper and lower end of right fibula, subsequent encounter for closed fracture with routine healing; S91.114D Laceration without foreign body of right lesser toe(s) without damage to nail, subsequent encounter; E86.0 Dehydration; E87.8 Other disorders of electrolyte and fluid balance, not elsewhere classified; K02.9 Dental caries, unspecified; G89.4 Chronic pain syndrome; Z74.2 Need for assistance at home and no other household member able to render care; E78.5 Hyperlipidemia, unspecified; M25.552 Pain in left hip; M25.551 Pain in right hip; M54.5 Low back pain; M53.3 Sacrococcygeal disorders, not elsewhere classified; Z87.891 Personal history of nicotine dependence; Z79.891 Long term (current) use of opiate analgesic; Z98.84 Bariatric surgery status; Z74.01 Bed confinement status; Z87.440 Personal history of urinary (tract) infections; Z79.82 Long term (current) use of aspirin; Z79.899 Other long term (current) drug therapy; Z91.81 History of falling
CPT/HCPCS: 36415; 36600; 71010; 71020; 71275; 80048; 80053; 80076; 82803; 83036; 83735; 83880; 84100; 84484; 85025; 87040; 87070; 87205; 93005; 99284; 99285

== ENCOUNTER 2017-05-04 14:50 | Outpatient (CLI) | payer MEDICAID | END 2017-05-04 14:51 | LOC: EMS 14:50 | PROVIDERS: ATTEND Surgery | DX: R53.1 Weakness (principal) | CPT/HCPCS: A0425; A0428 ==

== ENCOUNTER 2017-05-19 16:25 | Outpatient (CLI) | payer MEDICAID ==
[2017-05-19 17:48] LABS: BASOPHILS # (AUTO) 0.1 10^3/uL (0.0-0.1); BASOPHILS % (AUTO) 0.9 %; EOSINOPHILS # (AUTO) 0.4 10^3/uL (0.0-0.7); EOSINOPHILS % (AUTO) 3.4 %; HCT - HEMATOCRIT 40.3 % (42.0-52.0); HGB - HEMOGLOBIN 13.8 g/dL (14.0-18.0); LYMPHOCYTES # (AUTO) 2.6 10^3/uL (1.5-3.5); LYMPHOCYTES % (AUTO) 24.8 %; MEAN CORPUSCULAR HEMOGLOBIN 29.1 pg (27.0-31.0); MEAN CORPUSCULAR HGB CONC 34.2 g/dL (32.0-36.0); MEAN CORPUSCULAR VOLUME 85.2 fL (80.0-94.0); MEAN PLATELET VOLUME 8.2 fL (7.4-11.4); MONOCYTES # (AUTO) 0.9 10^3/uL (0.0-1.0); MONOCYTES % (AUTO) 8.2 %; NEUTROPHILS # (AUTO) 6.6 10^3/uL (1.5-6.6); NEUTROPHILS % (AUTO) 62.7 %; NUCLEATED RED BLOOD CELLS AUTO 0.1 /100WBC; RED BLOOD COUNT 4.74 10^6/uL (4.70-6.10); RED CELL DISTRIBUTION WIDTH 13.4 % (12.0-15.0); UNCORRECTED WHITE BLOOD COUNT 10.5 x10^3/uL; WHITE BLOOD COUNT 10.5 x10^3/uL (4.8-10.8)
[2017-05-19 18:22] LABS: ALBUMIN/GLOBULIN RATIO 1.4 (1.0-2.2); BILIRUBIN,DIRECT 0.1 mg/dL (0.1-0.5); BILIRUBIN,TOTAL 0.4 mg/dL (0.2-1.0); CALCIUM 9.6 mg/dL (8.5-10.3); CREATININE 1.1 mg/dL (0.6-1.2); POTASSIUM 3.9 mmol/L (3.5-5.0); TOTAL PROTEIN 6.1 g/dL (6.7-8.2)
[2017-05-19 20:03] LABS: HEMOGLOBIN A1C 0.89 g/dL
== END 2017-05-19 16:26 | disposition home or self-care (01) ==
LOC: LAB.R 16:25
DX: I10 Essential (primary) hypertension (principal); E78.5 Hyperlipidemia, unspecified; S82.301D Unspecified fracture of lower end of right tibia, subsequent encounter for closed fracture with routine healing; Z11.9 Encounter for screening for infectious and parasitic diseases, unspecified
CPT/HCPCS: 80053; 80076; 83036; 85025

== ENCOUNTER 2017-05-20 23:40 | Outpatient (CLI) | payer MEDICAID | END 2017-05-20 23:41 | disposition home or self-care (01) | LOC: LAB.R 23:40 | DX: E11.40 Type 2 diabetes mellitus with diabetic neuropathy, unspecified (principal) | CPT/HCPCS: 82043 ==

== ENCOUNTER 2017-06-30 13:11 | Outpatient (CLI) | payer MEDICAID | END 2017-06-30 13:12 | disposition EMS.NT | LOC: EMS 13:11 | PROVIDERS: ATTEND Surgery | DX: Z03.89 Encounter for observation for other suspected diseases and conditions ruled out (principal); W18.39XA Other fall on same level, initial encounter; Y92.009 Unspecified place in unspecified non-institutional (private) residence as the place of occurrence of the external cause ==

== ENCOUNTER 2017-08-10 08:15 | Outpatient (CLI) | payer MEDICAID ==
[2017-08-10 18:38] LABS: ALBUMIN/GLOBULIN RATIO 1.6 (1.0-2.2); BILIRUBIN,TOTAL 0.6 mg/dL (0.2-1.0); BUN - BLOOD UREA NITROGEN 21 mg/dL (6-20); CALCIUM 9.4 mg/dL (8.5-10.3); CARBON DIOXIDE - CO2 29 mmol/L (21-32); CHLORIDE 96 mmol/L (101-111); CREATININE 0.8 mg/dL (0.6-1.2); GFR - MDRD 99 (>89); GLUCOSE 193 mg/dL (70-100); POTASSIUM 4.4 mmol/L (3.5-5.0); SODIUM 135 mmol/L (135-145); TOTAL PROTEIN 6.2 g/dL (6.7-8.2); TRIGLYCERIDES 499 mg/dL
[2017-08-10 19:01] LABS: LDL CHOLESTEROL,DIRECT 64 mg/dL
[2017-08-10 19:29] LABS: HEMOGLOBIN A1C 0.94 g/dL
== END 2017-08-10 08:16 | disposition home or self-care (01) ==
LOC: LAB.R 08:15
PROVIDERS: ATTEND Nurse Practitioner Family
DX: E11.65 Type 2 diabetes mellitus with hyperglycemia (principal)
CPT/HCPCS: 80053; 83036; 84478

== ENCOUNTER 2018-03-28 11:59 | Outpatient (CLI) | payer MEDICAID | END 2018-03-28 12:00 | disposition EMS.NT | LOC: EMS 11:59 | PROVIDERS: ATTEND Surgery | DX: Z03.89 Encounter for observation for other suspected diseases and conditions ruled out (principal) ==

== ENCOUNTER 2018-04-06 17:30 | Outpatient (CLI) | payer MEDICAID | END 2018-04-06 17:31 | disposition home or self-care (01) | LOC: LAB.R 17:30 | PROVIDERS: ATTEND Nurse Practitioner Family | DX: L89.322 Pressure ulcer of left buttock, stage 2 (principal) | CPT/HCPCS: 87070; 87077; 87181; 87205 ==

== ENCOUNTER 2018-05-03 12:10 | Outpatient (CLI) | payer MEDICAID | END 2018-05-03 12:11 | disposition critical access hospital (66) | LOC: EMS 12:10 | PROVIDERS: ATTEND Surgery | DX: R06.02 Shortness of breath (principal) | CPT/HCPCS: A0425; A0427; A0999 ==

== ENCOUNTER 2018-05-03 12:46 | Inpatient (IN) | payer MEDICAID ==
[2018-05-03] MEDS ORDERED: ALBUTEROL NEB 2.5 MG/3 ML INH STA (12:56)
[2018-05-03 13:23] LABS: BASOPHILS # (AUTO) 0.1 10^3/uL (0.0-0.1); BASOPHILS % (AUTO) 0.5 %; EOSINOPHILS # (AUTO) 0.1 10^3/uL (0.0-0.7); EOSINOPHILS % (AUTO) 0.4 %; HGB - HEMOGLOBIN 12.5 g/dL (14.0-18.0); LYMPHOCYTES % (AUTO) 8.1 %; MEAN CORPUSCULAR HEMOGLOBIN 29.2 pg (27.0-31.0); MEAN CORPUSCULAR HGB CONC 32.2 g/dL (32.0-36.0); MEAN CORPUSCULAR VOLUME 90.8 fL (80.0-94.0); MEAN PLATELET VOLUME 7.7 fL (7.4-11.4); MONOCYTES # (AUTO) 0.8 10^3/uL (0.0-1.0); MONOCYTES % (AUTO) 6.7 %; NEUTROPHILS % (AUTO) 84.3 %; PLT - PLATELET COUNT 311 10^3/uL (130-450); RED BLOOD COUNT 4.29 10^6/uL (4.70-6.10); RED CELL DISTRIBUTION WIDTH 14.3 % (12.0-15.0); WHITE BLOOD COUNT 11.9 x10^3/uL (4.8-10.8)
[2018-05-03 13:39] LABS: CALCIUM 9.3 mg/dL (8.5-10.3); CREATININE 0.9 mg/dL (0.6-1.2)
--- NOTE | 2018-05-03 13:41 | ED Physician Documentation ---
History of Present Illness - Stated complaint Stated Complaint: SOA - Chief complaint Chief Complaint: Resp - Additonal information Additional information: hx from pt 58 male SAH with R hemiparesis s/p clipping of aneurysm, trach 2/2 vocal cord paralysis , morbid obesity s/p gastric band.HTN DM HLD a fib, COPD CHF uses home O2 3.5 L normally today home health came to care for his sacral and heel decubs and found him SOA and called 911 EMS found pt with sat 88% - states she was coughing and trach not plugged pt states his sats were 74% earlier this AM EMS noted wheezing and rales gave neb nitro paste and lasix pt is doing better now pt denies fever deneis CP no NVD legs and abd are swollen Review of Systems Constitutional: denies: Fever Throat: denies: Sore throat Cardiac: denies: Chest pain / pressure Respiratory: reports: Dyspnea, Cough, Wheezing GI: denies: Abdominal Pain, Vomiting, Diarrhea Skin: reports: Other (decubs) Musculoskeletal: reports: Extremity swelling Endocrine: denies: Easy bruising / bleeding Immunocompromised: denies: Immunocompromised PD PAST MEDICAL HISTORY - Past Medical History Cardiovascular: Hypertension, High cholesterol, Atrial fibrillation Respiratory: Other Endocrine/Autoimmune: Type 2 diabetes GI: None : None HEENT: None Psych: Depression Musculoskeletal: None Derm: None - Past Surgical History Past Surgical History: Yes General: Cholecystectomy HEENT: Tracheostomy - Present Medications Home Medications: Ambulatory Orders Medication Instructions Recorded Confirmed Insulin Glargine,Hum.rec.anlog 38 unit SUBQ BID 03/20/13 05/03/18 [Lantus Solostar] Lisinopril 10 mg PO BID 03/20/13 05/03/18 Lovastatin 40 mg PO QPM 03/20/13 05/03/18 Multivitamin [Multivitamins] 1 each PO DAILY 03/20/13 05/03/18 metFORMIN [Glucophage] 1,000 mg PO BIDWM 03/20/13 05/03/18 Aspirin 81 mg PO DAILY 10/04/16 05/03/18 Insulin Aspart [Novolog Flexpen] 20 unit SUBQ TIDWM MDD 90 UNITS 10/04/16 Furosemide [Lasix] 80 mg PO DAILY 03/11/17 05/03/18 Gabapentin 200 mg PO QPM 03/11/17 05/03/18 Icosapent Ethyl [Vascepa] 2 gm PO BID 03/12/17 05/03/18 Sertraline HCl [Zoloft] 200 mg PO QPM 03/12/17 05/03/18 diltiaZEM CD [Cardizem Cd] 120 mg PO BID #60 capsule 03/14/17 05/03/18 Albuterol 3 ml INH BID PRN 05/03/18 05/03/18 Amiodarone HCl 200 mg PO DAILY 05/03/18 05/03/18 Baclofen [Baclofen] 10 mg PO QID PRN 05/03/18 05/03/18 Bupropion HCl [Bupropion Xl] 300 mg PO DAILY 05/03/18 05/03/18 [place]-3 Fatty Acids/Fish Oil 1 gm PO BID 05/03/18 05/03/18 [[place]-3 Fish Oil 1,000 mg Sfgl] Oxycodone HCl 10 mg PO Q4HR PRN MDD 60MG 05/03/18 05/03/18 - Allergies Allergies/Adverse Reactions: Allergies Allergy/AdvReac Type Severity Reaction Status Date / Time niacin Allergy Severe Hives Verified 05/03/18 13:01 - Social History Does the pt smoke?: No Smoking Status: Former smoker Does the pt drink ETOH?: No Does the pt have substance abuse?: No - Immunizations Immunizations are current?: No Immunizations: TDAP >10years/unknown - POLST Patient has POLST: No PD ED PE NORMAL - Vitals Vital signs reviewed: Yes - Neck Neck: Supple, no meningeal sign - Cardiac Cardiac: RRR - Respiratory Respiratory: No respiratory distress, Other (decreased diffusely) - Abdomen Abdomen: Soft, Non tender - Derm Derm: Normal color - Extremities Extremities: Other (dany symm edema) - Neuro Neuro: Alert and oriented X 3 - Free text exam Free text exam: too SOA to roll to check decubs will examine later Results - Vitals Vitals: Vital Signs - 24 hr 05/03/18 05/03/18 05/03/18 12:58 13:19 15:20 Temperature 36.7 C 36.1 C L Heart Rate 84 88 84 Respiratory 24 22 16 Rate Blood Pressure 130/71 103/83 H O2 Saturation 97 97 Oxygen O2 Source [Without Activity] trach blow by O2 Source T-piece - Labs Labs: Laboratory Tests 05/03/18 05/03/18 05/03/18 13:14 13:14 13:14 WBC 11.9 H RBC 4.29 L Hgb 12.5 L Hct 39.0 L MCV 90.8 MCH 29.2 MCHC 32.2 RDW 14.3 Plt Count 311 MPV 7.7 Neut # (Auto) 10.0 H Lymph # (Auto) 1.0 L [place] # (Auto) 0.8 Eos # (Auto) 0.1 Baso # (Auto) 0.1 Absolute Nucleated RBC 0.00 Nucleated RBC % 0.0 Sodium 138 Potassium 4.3 Chloride 88 L Carbon Dioxide 43 H* Anion Gap 7.0 BUN 29 H Creatinine 0.9 Estimated GFR (MDRD) 86 L Glucose 278 H Calcium 9.3 Troponin I < 0.04 B-Natriuretic Peptide 05/03/18 13:14 WBC RBC Hgb Hct MCV MCH MCHC RDW Plt Count MPV Neut # (Auto) Lymph # (Auto) [place] # (Auto) Eos # (Auto) Baso # (Auto) Absolute Nucleated RBC Nucleated RBC % Sodium Potassium Chloride Carbon Dioxide Anion Gap BUN Creatinine Estimated GFR (MDRD) Glucose Calcium Troponin I B-Natriuretic Peptide 27 - Rads (name of study) CXR Radiology: See rad report (low lung volumes, Lposterior lung infiltrate vs atelectasis, trach tube in place, stable cardiomegaly) PD MEDICAL DECISION MAKING - ED course ED course: pt breathing much better after tx by EMS (nebs nitro and lasix) BNP neg and no edema on CXR does appear to have a pna no recent hospitalization so CAP gave rocephin zmax per EMS pt has COPD but not on Pmhx in EMR and no nebs listed in home meds - but he was wheezy and got better with nebs so gave steroids as well he states he was hypoxic sat 74% this AM on his 3.5 L home O2 and he is hypercapneic and he says he almost always gets admitted for pna also his mom is admitted to hospital right now so is alone except when [employer] workers come in so called hospitalist for admit at 320PM hospitalist to ED to see pt - he is too large to be turned in the ED poonam - hospitalist states she will examine his decubs when he gets to [facility] with hover mat on the floor - Sepsis Event Vital Signs: Vital Signs - 24 hr 05/03/18 05/03/18 05/03/18 12:58 13:19 15:20 Temperature 36.7 C 36.1 C L Heart Rate 84 88 84 Respiratory 24 22 16 Rate Blood Pressure 130/71 103/83 H O2 Saturation 97 97 Oxygen O2 Source [Without Activity] trach blow by O2 Source T-piece Departure - Departure Disposition: 66 [facility] DC/Xfer Clinical Impression: Pneumonia, Hypoxia, Hypercarbia Discharge Date/Time: 05/03/18 17:23
--- NOTE | 2018-05-03 14:27 | XRAY Report ---
Procedure Date: 05/03/2018 Accession Number: [id number] / [id number] Procedure: XR - Chest 2 View X-Ray CPT Code: 26927 FULL RESULT: EXAM: CHEST RADIOGRAPHY EXAM DATE: 05/03/2018 02:12 PM. CLINICAL HISTORY: Shortness of breath. COMPARISON: Chest 1 view 03/26/2017. TECHNIQUE: 2 views. FINDINGS: Lungs/Pleura: Mildly low lung volumes. Blunting of the left posterior costophrenic angle. Left posterior lung base consolidation or atelectasis. No vascular congestion nor pneumothorax. Tracheostomy tube remains in place. Mediastinum: Stable mild cardiomegaly. No tracheal shift. Other: None. IMPRESSION: 1. Mild cardiomegaly. 2. Small left posterior lung base infiltrate and effusion. 3. Mildly low lung volumes. RADIA
[2018-05-03] MEDS ORDERED: cefTRIAXone 1 GM in SODIUM CHLORIDE 0.9% MINIBAG 100 ML IV STA (15:05)
[2018-05-03] MEDS ORDERED: AZITHROMYCIN INJ 500 MG in SODIUM CHLORIDE 0.9% 250 ML IV STA (15:05)
[2018-05-03] MEDS ORDERED: DEXAMETHASONE 10 MG/ML VIAL PO STA (15:41)
--- NOTE | 2018-05-03 16:34 | HISTORY & PHYSICAL EXAMINATION ---
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 Over the past week, the patient and his mother admit to generalized weakness, fatigue and increased shortness of breath. He has a non-cuffed trach, and denies problems with swallowing or aspiration. He believes to have had mild fever and chills, increased SOB, increased sputum production and generalized fatigue. He gets daily [employer] workers, and weekly nursing care. He texted one of his workers early this AM around 3 and requested that someone come by to check on him. Once the worker was there, she noted his breathing to be more labored, and to be hypoxic with an oxygen saturation of 84%. He wears a trach mask at home for supplemental oxygen and has been having an increased cough with thick green sputum. Later this morning , the nurse arrived and checked his oxygen saturation which was now only 74%, so 911 was called. En route he was given nebulizers, nitro paste, and lasix. Once arriving in the ED via EMS, he was found to have an elevated WBC count of 11.9, mildly anemia with an H/H of 12.5/39.0. An elevated carbon dioxide level of 43, and a normal troponin. Imaging shows pneumonia. He denies SOB, chest pain, nausea, vomiting, or dizziness. He will be admitted to inpatient for further care and a wound consult. 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: None : reports: Benign prostate hypertrophy, Incontinence, Nocturia, Frequency HEENT: reports: None Psych: reports: Depression, Anxiety, Eating disorder (super, morbid obesity) Musculoskeletal: reports: Osteoarthritis, Osteoporosis, Hemiplegia, Fatigue, Chronic back pain Derm: reports: None MRSA Hx?: Yes - Past Surgical History General: reports: Cholecystectomy HEENT: reports: Tracheostomy - Family & Social History Family History: Mother: Alive and Well, Diabetes, Type 2, Hypertension, Mental Illness, Obesity, Father: , CVA/TIA, Sister: Alive and Well, , Brother: Alive and Well, , Cancer Family History Comment/Other: Mother is alive and in poor health with DM, obesity, CAD, depression. Father at age 48 after a CVA. The patient has 3 brothers and 2 sisters. He recently lost his sister after complications of Downs syndrome at age 59 years. The other sister is alive and well. He lost one brother at age 39 from lung cancer, and the other 2 brothers are alive and well. Living arrangement: At home Living Situation: With family, With caregiver(s) Social History Notes: The patient lives independently with his mother, who is in poor physical condition. The patient is considered home bound and is seen for in-home visits by his PCP Jen Lindsay. He has a [facility] bed, and [employer] workers daily. 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 He is not on disability after having a traumatic event in 2007, which was a brain aneurysm leaving him with a chronic trach and chronic right sided weakness. He has no children and is not . He denies illicit drug use, or alcohol use. He admits to a tobacco dependence history from age [age]. He wishes to be a FULL code. - Substance History Use: Uses substance without health or social issues: NONE Abuse: Recurrent use of substance despite neg consequences: NONE Dependence: Experiences withdrawal or developed tolerances: NONE - POLST Patient has POLST: No POLST Status: Full Code Meds/Allgy - Home Medications Home Medications: Ambulatory Orders Medication Instructions Recorded Confirmed Insulin Glargine,Hum.rec.anlog 38 unit SUBQ BID 03/20/13 05/03/18 [Lantus Solostar] Lisinopril 10 mg PO BID 03/20/13 05/03/18 Lovastatin 40 mg PO QPM 03/20/13 05/03/18 Multivitamin [Multivitamins] 1 each PO DAILY 03/20/13 05/03/18 metFORMIN [Glucophage] 1,000 mg PO BIDWM 03/20/13 05/03/18 Aspirin 81 mg PO DAILY 10/04/16 05/03/18 Insulin Aspart [Novolog Flexpen] 20 unit SUBQ TIDWM MDD 90 UNITS 10/04/16 Furosemide [Lasix] 80 mg PO DAILY 03/11/17 05/03/18 Gabapentin 200 mg PO QPM 03/11/17 05/03/18 Icosapent Ethyl [Vascepa] 2 gm PO BID 03/12/17 05/03/18 Sertraline HCl [Zoloft] 200 mg PO QPM 03/12/17 05/03/18 diltiaZEM CD [Cardizem Cd] 120 mg PO BID #60 capsule 03/14/17 05/03/18 Albuterol 3 ml INH BID PRN 05/03/18 05/03/18 Amiodarone HCl 200 mg PO DAILY 05/03/18 05/03/18 Baclofen [Baclofen] 10 mg PO QID PRN 05/03/18 05/03/18 Bupropion HCl [Bupropion Xl] 300 mg PO DAILY 05/03/18 05/03/18 [place]-3 Fatty Acids/Fish Oil 1 gm PO BID 05/03/18 05/03/18 [[place]-3 Fish Oil 1,000 mg Sfgl] Oxycodone HCl 10 mg PO Q4HR PRN MDD 60MG 05/03/18 05/03/18 - Allergies Allergies/Adverse Reactions: Allergies Allergy/AdvReac Type Severity Reaction Status Date / Time niacin Allergy Severe Hives Verified 05/03/18 13:01 Review of Systems - Constitutional Constitutional: reports: Fatigue, Fever, Chills, Weakness, Poor appetite - Eyes Eyes: reports: Vision loss - Ears, Nose & Throat Ears, Nose & Throat: reports: Hearing loss, Nasal congestion, Other (permanent trach without problems) - Cardiovascular Cariovascular: reports: Irregular heart rate, Palpitations, Edema, Lightheadedness, Decr. exercise tolerance, Orthopnea - Respiratory Respiratory: reports: Cough, Sputum production, Wheezing, Orthopnea, SOB at rest , SOB with exertion - Gastrointestinal Gastrointestinal: reports: Abdominal distention, Constipation, Nausea, Reflux/ heartburn, Bloating, Poor appetite - Genitourinary Genitourinary: reports: Dysuria, Frequency, Urgency, Nocturia - Musculoskeletal Musculoskeletal: reports: Back pain, Muscle aches, Limited range of motion, Muscle weakness, Joint swelling - Integumentary Integumentary: reports: Dryness - Neurological Neurological: reports: General weakness, Numbness, Memory problems, Pre- existing deficit, Other (chronic impaired speech) - Psychiatric Psychiatric: reports: Depression, Anxiety - Hematologic/Lymphatic Hematologic/Lymphatic: reports: Anemia, Recurrent infections (recent coccyx wound infection- out patient) - All Other Systems All Other Systems: reports: Reviewed and negative Exam - Vital Signs Reviewed Vital Signs: Yes - Physical Exam General Appearance: positive: Alert, Moderate distress, Anxious Eyes Bilateral: positive: Normal inspection, PERRL ENT: positive: ENT inspection nml, Dry mucous membranes Neck: positive: Nml inspection, Thyroid nml, No JVD, Lymphadenopathy (R), Lymphadenopathy (L) Respiratory: positive: Chest non-tender, Wheezes, Rhonchi Cardiovascular: positive: Irregularly irregular, Tachycardia, Systolic murmur, Decreased pulse(s) Peripheral Pulses: positive: 1+ Abdomen: positive: Guarding, Abnml bowel sounds, Other (obese, soft) Back: positive: Nml inspection Skin: positive: No rash, Warm, Dry, Decubitus (coccyx) Extremities: positive: Pedal edema (chronic BLE, pitting. Chronic BLE wounds), Joint swelling Conclusion/Plan - Problem List (1) Hypoxia Conclusion/Plan: The patient was noted to required increased oxygen upon presentation to the ED and his usual oxygen requirement at home is ~ 3.5L per trach mask. Plan: Continue respiratory care and provide supplemental oxygen. (2) Pneumonia Conclusion/Plan: The patient was prescribed Cipro and Augmentin as a out patient on 04/11/18 by Tyra Pedersen, PCP clinic and this was based off of a coccyx wound culture ( collected on 04/06/18) that grew out entercoccus faecalis. Plan: (3) Chronic constipation Conclusion/Plan: This chronic condition is a likely consequence of his chronic narcotics,pain medications, diuretic and other anti-cholenergic type meds including oxycodone, baclofen, gabapentin, sertraline, bupropion, lasix, lisinopril, and a possible side effect of the calcium citrate. AND the largest factor is him being sedentary, bed bound. He is prescribed Colace and bisacodyl at home. I may consider adding Senna if no BM. Plan: Monitor for worsening, but antibiotics may also cause diarrhea. (4) Chronic pain syndrome Conclusion/Plan: The patient has good reasons to have chronic pain including osteoarthritis, chronic BLE wounds, severely uncontrolled DM leading to peripheral neuropathy and his current morbidly obese state causing a lack of ambulation and profound debility. He takes Baclofen and oxycodone that has been recently increased due to worsening coccyx wound. Plan: Continue usual home meds with added IV form of narcotic if needed. Offer tylenol. (5) Diabetes type 2, uncontrolled Conclusion/Plan: A hemoglobin A1 C is pending, but blood sugars since arriving on the nursing floor have been greater than 200. The patient believes that his sugars have been higher that usual at home. He is prescribed a very large amount of Lantus at 35 unit BID, and Novolog with meals of 20 units with meals. He has severe consequences of this and they include a large cardiac history and peripheral neuropathy. He has [employer] care givers and his PCP acutally makes house calls for in-home visits. Plan: Continue usual home doses, but with an added sliding scale. Continue to monitor BS AC/HS and daily labs. Qualifiers: Diabetes mellitus mcc insulin use: with mcc use Diabetes mellitus complication status: with kidney complications Diabetes mellitus complication detail: with microalbuminuria Qualified Code(s): E11.29 - Type 2 diabetes mellitus with other diabetic kidney complication; E11.65 - Type 2 diabetes mellitus with hyperglycemia; R80.9 - Proteinuria, unspecified; Z79.4 - [facility] (current) use of insulin (6) HTN (hypertension) Conclusion/Plan: The patient has a long history of this and is prescribed Diltiazem, furosemide, and lisinopril at home. Blood pressure was slightly low at 115/56, but somewhat improved to 129/67. The patient complained of generalized fatigue. I will hold furosemide and lisinopril for now. Plan: Continue to give and monitor vital signs. Qualifiers: (7) Morbid obesity with BMI of 50.0-59.9, adult Conclusion/Plan: The patient has an astonishing BMI of 57.7 upon admission. Out side clinic notes state that he weighs ~450 lbs, although he is considered home bound and this may not be accurate. Plan: After this acute illness, the patient would do well with a weight loss program and since he cannot ambulate, restricting food would actual be beneficial. (8) Perirectal ulcer Conclusion/Plan: An indwelling awad cath was ordered for wound protection. The patient has a chronic coccyx wound, and he states that this has been more painful lately. Photos were taken. He also has scrotal skin breakdown. A [facility] consult was made , and he should be turned every 2 hours for optimal healing. The patient was prescribed Cipro and Augmentin as a out patient on 04/11/18 by Tyra Pedersen, PCP clinic and this was based off of a coccyx wound culture (collected on 04/06/18) that grew out entercoccus faecalis. As per chart review, notes from Jen Lindsay PCP state, "The ulcer formed after getting the patient a new bariatric bed. The first 2 beds delivered "broke" within days and the third one does not have the ability to go into reverse trendelenberg. His old bed did. He would use reverse trendelenberg to facilitate breathing and secretion control of his permanent tracheostomy. On the current bed he can only elevate the head of the bed. This has placed great pressure on his buttocks, resulting in the skin breakdown". Plan: Turns Q2 hours, A&D to scrotum, and wound consult. - Lab Results Lab results reviewed: Yes Ernesto Bones: 05/05/18 06:58 05/05/18 06:58 - Diagnostic Imaging Results Diagnostic Imaging Results: positive: Prelim report reviewed, Final report reviewed - EKG Results EKG Interpreted Independently: Yes Core Measures - Anticipated LOS I expect patient to be DC'd or transferred within 96 hours.: Yes - DVT/VTE - Prophylaxis VTE/DVT Device ordered at admit?: Yes VTE/DVT Prophylaxis med ordered at admit?: Yes - Stroke - Rehab Assessment Rehab services assessment to be ordered?: Yes - AMI - Statin at Admit Aspirin Prescribed on Admit: Yes
[2018-05-03] MEDS ORDERED: LIDOCAINE 2% URO-JET 5 ML SYRINGE UR PRN (17:56)
[2018-05-03] MEDS ORDERED: BACLOFEN 10 MG TABLET PO PRN (17:59)
[2018-05-03] MEDS: SODIUM CHLORIDE FLUSH 0.9% 10 ML SYRINGE IVP SCH (18:26)
[2018-05-03] MEDS: INSULIN ASPART 300 UNIT/3 ML PEN SUBQ SCH (18:47)
[2018-05-03] MEDS: oxyCODONE 5 MG TABLET PO PRN ×2 (18:51→23:55)
[2018-05-03] MEDS: ATORVASTATIN 10 MG TABLET PO SCH (20:56)
[2018-05-03] MEDS: diltiaZEM CD 120 MG CAPSULE PO SCH (20:56)
[2018-05-03] MEDS: SERTRALINE 50 MG TABLET PO SCH (20:56)
[2018-05-03] MEDS: GABAPENTIN 100 MG CAPSULE PO SCH (20:57)
[2018-05-03] MEDS: ENOXAPARIN 40 MG/0.4 ML SYRINGE SUBQ SCH (20:57)
[2018-05-03] MEDS: INSULIN GLARGINE 300 UNIT/3 ML PEN SUBQ SCH (20:58)
[2018-05-03] MEDS: methylPREDNISolone SUCCINATE 40 MG/ML VIAL IVP SCH ×2 (21:16→21:25)
[2018-05-03] MEDS: PIPERACILLIN/TAZOBACTAM 3.375 GM in SODIUM CHLORIDE 0.9% MINIBAG 100 ML IV SCH (21:16)
[2018-05-04] MEDS: PIPERACILLIN/TAZOBACTAM 3.375 GM in SODIUM CHLORIDE 0.9% MINIBAG 100 ML IV SCH ×4 (01:45→18:43)
[2018-05-04] MEDS: SODIUM CHLORIDE FLUSH 0.9% 10 ML SYRINGE IVP SCH ×4 (01:58→21:43)
[2018-05-04] MEDS: BUDESONIDE 0.5 MG/2 ML NEB INH SCH ×3 (03:38→19:22)
[2018-05-04] MEDS: SODIUM CHLORIDE FLUSH 0.9% 10 ML SYRINGE IVP PRN (06:30)
[2018-05-04] MEDS: methylPREDNISolone SUCCINATE 40 MG/ML VIAL IVP SCH ×3 (06:30→21:28)
[2018-05-04 06:33] LABS: BASOPHILS % (AUTO) 0.1 %; HGB - HEMOGLOBIN 12.3 g/dL (14.0-18.0); LYMPHOCYTES # (AUTO) 0.6 10^3/uL (1.5-3.5); LYMPHOCYTES % (AUTO) 7.2 %; MEAN CORPUSCULAR HEMOGLOBIN 29.5 pg (27.0-31.0); MEAN CORPUSCULAR HGB CONC 32.3 g/dL (32.0-36.0); MEAN CORPUSCULAR VOLUME 91.2 fL (80.0-94.0); MEAN PLATELET VOLUME 7.8 fL (7.4-11.4); MONOCYTES # (AUTO) 0.2 10^3/uL (0.0-1.0); MONOCYTES % (AUTO) 2.6 %; NEUTROPHILS # (AUTO) 7.3 10^3/uL (1.5-6.6); NEUTROPHILS % (AUTO) 90.1 %; PLT - PLATELET COUNT 261 10^3/uL (130-450); RED BLOOD COUNT 4.19 10^6/uL (4.70-6.10); RED CELL DISTRIBUTION WIDTH 14.3 % (12.0-15.0); WHITE BLOOD COUNT 8.1 x10^3/uL (4.8-10.8)
[2018-05-04 06:42] LABS: HB2 TOTAL 12.7 g/dL; HEMOGLOBIN A1C 0.92 g/dL; HEMOGLOBIN A1C % 8.8 % (4.6-6.2)
[2018-05-04 06:50] LABS: ALBUMIN 3.4 g/dL (3.2-5.5); BILIRUBIN,TOTAL 0.7 mg/dL (0.2-1.0); CREATININE 0.7 mg/dL (0.6-1.2); TOTAL PROTEIN 6.8 g/dL (6.7-8.2)
[2018-05-04] MEDS: ALBUTEROL NEB 2.5 MG/3 ML INH PRN ×2 (07:22→19:22)
[2018-05-04] MEDS: ASPIRIN CHEW 81 MG TABLET PO SCH (08:35)
[2018-05-04] MEDS: diltiaZEM CD 120 MG CAPSULE PO SCH ×2 (08:35→21:27)
[2018-05-04] MEDS: ENOXAPARIN 40 MG/0.4 ML SYRINGE SUBQ SCH ×2 (08:35→21:27)
[2018-05-04] MEDS: AMIODARONE 200 MG TABLET PO SCH (08:35)
[2018-05-04] MEDS: INSULIN ASPART 300 UNIT/3 ML PEN SUBQ SCH ×5 (08:35→21:26)
[2018-05-04] MEDS: buPROPion XL 150 MG TABLET PO SCH (08:35)
[2018-05-04] MEDS: POLYETHYLENE GLYCOL 3350 17 GM PACKET PO SCH (08:35)
[2018-05-04] MEDS: INSULIN GLARGINE 300 UNIT/3 ML PEN SUBQ SCH ×2 (08:36→21:26)
[2018-05-04] MEDS: oxyCODONE 5 MG TABLET PO PRN ×4 (09:14→22:53)
[2018-05-04] MEDS ORDERED: A & D OINTMENT 5 GM PACKET TOP PRN (15:13)
[2018-05-04] MEDS: ZINC OXIDE 20% OINT 28.35 GM TUBE TOP SCH ×2 (18:43→21:29)
--- NOTE | 2018-05-04 18:51 | PROVIDER PROGRESS NOTE ---
Subjective - Prog Note Date Prog Note Date: 05/04/18 Prog Note Time: 10:00 - Subjective Pt reports feeling: Improved Subjective: Rai admits to overall improvement. He complains that the hospital beds are not good for his skin and states that he is sleeping well. He denies new symptoms such as increased SOB, chest pain, nausea, vomiting or an increased cough. He thinks that his sputum production has slowed down a little. Objective - Vital Signs/Intake & Output Reviewed Vital Signs: Yes Vital Signs: Vital Signs x48h Temp Pulse Resp BP Pulse Ox 05/04/18 15:37 37.1 C 84 20 144/71 H 93 05/04/18 12:08 36.7 C 87 22 141/95 H 92 Intake & Output: Intake & Output 05/01/18 05/02/18 05/03/18 05/04/18 23:59 23:59 23:59 23:59 Intake Total 1030 1800 Output Total 1100 2350 Balance -70 -550 - Objective General Appearance: positive: No acute distress, Alert, Lethargic Eyes Bilateral: positive: Normal inspection, PERRL ENT: positive: ENT inspection nml, Pharynx nml, No signs of dehydration, Pharyngeal erythema Neck: positive: Nml inspection, Thyroid nml, No JVD, Trachea midline Respiratory: positive: Chest non-tender, No respiratory distress, Wheezes, Rhonchi Cardiovascular: positive: Regular rate & rhythm, No gallop, Systolic murmur, Decreased pulse(s) Peripheral Pulses: 1+ Radial (R), 1+ Radial (L) Abdomen: positive: Non-tender, Nml bowel sounds, Other (obese, soft.) Back: positive: Nml inspection Skin: positive: No rash, Warm, Dry, Decubitus (coccyx, scrotal wounds, right LE) , Other (pale) Extremities: positive: Pedal edema (chronic BLE edema), Joint swelling Neurologic/Psychiatric: positive: Oriented x3, CN's nml (2-12), Motor nml, Sensation nml, Weakness, Sensory loss, Depressed mood/affect Reflexes: Bicep (R): 2+, Bicep (L): 2+ - Lab Results Fish Bones: 05/06/18 06:00 05/06/18 06:00 Other Labs: Lab Results x24hrs 05/04/18 05/04/18 05/04/18 Range/Units 06:05 06:05 06:05 WBC 8.1 (4.8-10.8) x10^3/uL RBC 4.19 L (4.70-6.10) 10^6/uL Hgb 12.3 L (14.0-18.0) g/dL Hct 38.2 L (42.0-52.0) % MCV 91.2 (80.0-94.0) fL MCH 29.5 (27.0-31.0) pg MCHC 32.3 (32.0-36.0) g/dL RDW 14.3 (12.0-15.0) % Plt Count 261 (130-450) 10^3/uL MPV 7.8 (7.4-11.4) fL Neut # (Auto) 7.3 H (1.5-6.6) 10^3/uL Lymph # (Auto) 0.6 L (1.5-3.5) 10^3/uL Hughes # (Auto) 0.2 (0.0-1.0) 10^3/uL Eos # (Auto) 0.0 (0.0-0.7) 10^3/uL Baso # (Auto) 0.0 (0.0-0.1) 10^3/uL Absolute Nucleated RBC 0.00 x10^3/uL Nucleated RBC % 0.0 /100WBC Sodium 137 (135-145) mmol/L Potassium 4.3 (3.5-5.0) mmol/L Chloride 88 L (101-111) mmol/L Carbon Dioxide 40 H* (21-32) mmol/L Anion Gap 9.0 (6-13) BUN 28 H (6-20) mg/dL Creatinine 0.7 (0.6-1.2) mg/dL Estimated GFR (MDRD) 115 (>89) Glucose 259 H (70-100) mg/dL Glycated Hemoglobin 8.8 H (4.6-6.2) % Estim Average Glucose 206 H (70-100) Calcium 9.0 (8.5-10.3) mg/dL Total Bilirubin 0.7 (0.2-1.0) mg/dL AST 28 (10-42) IU/L ALT 49 (10-60) IU/L Alkaline Phosphatase 80 (42-121) IU/L Total Protein 6.8 (6.7-8.2) g/dL Albumin 3.4 (3.2-5.5) g/dL Globulin 3.4 (2.1-4.2) g/dL Albumin/Globulin Ratio 1.0 (1.0-2.2) - Diagnostic Imaging Diagnostic Imaging Results: positive: Final report reviewed ABX Reporting Has patient been on IV antibiotics over the past 48 hours?: Yes Assessment/Plan - Problem List (1) Morbid obesity with BMI of 50.0-59.9, adult Impression: The patient has an astonishing BMI of 57.7 upon admission. Out side clinic notes state that he weighs ~450 lbs, although he is considered home bound and this may or may not be accurate. Plan: After this acute illness, the patient would do well with a weight loss program and since he cannot ambulate, restricting food would actual be beneficial. (2) Pneumonia Impression: Imaging upon admission shows a left posterior lung base noted as an infiltrate. The patient admits to an increased cough, generalized weakness and fatigue and a recent course of antibiotics for his coccyx wound. The patient has an X- long permanent un-cuffed tracheostomy, so aspiration is certainly a possibility. Plan: Continue with IV treatment, await sputum results. Respiratory care. (3) Tracheostomy dependence Impression: The patient has a history of a brain aneurysm that occurred in 2007 and he has been trach dependent ever since that time. Plan: Continue nursing and respiratory care and monitor to ensure it stays intact. (4) Diabetes type 2, uncontrolled Impression: A hemoglobin A1 C is very elevated at 10.4%, showing poor treatment at home. The patient believes that his sugars have been higher that usual at home, although was just treated for his chronic coccyx wound that became more painful. He is prescribed a very large amount of Lantus at 35 unit BID, and Novolog with meals of 20 units with meals. He has severe consequences of this and they include a large cardiac history and peripheral neuropathy. He has [facility] care givers and his PCP actually makes house calls for in-home visits. Plan: Continue usual home doses, but with an added sliding scale. Continue to monitor BS AC/HS and daily labs. 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 See chart for Photos. He also has scrotal skin breakdown. A [facility] nurse gave recommendations. He was recently prescribed Cipro and Augmentin as a out patient on 04/11/18 by Tyra Pedersen, PCP clinic and this was based off of a coccyx wound culture (collected on 04/06/18) that grew out entercoccus faecalis. As per chart review, notes from [facility] states, "[place] [facility] The ulcer formed after getting the patient a new bariatric bed. The first 2 beds delivered "broke" within days and the third one does not have the ability to go into reverse trendelenberg. His old bed did. He would use reverse trendelenberg to facilitate breathing and secretion control of his permanent tracheostomy. On the current bed he can only elevate the head of the bed. This has placed great pressure on his buttocks, resulting in the skin breakdown". Plan: Turns Q2 hours, frequent nursing cares, and wound care orders. Qualifiers: Pressure injury stage: stage 3 Qualified Code(s): L89.153 - Pressure ulcer of sacral region, stage 3 (6) COPD with hypoxia Impression: The patient was noted to required increased oxygen upon presentation to the ED and his usual oxygen requirement at home is ~ 3.5L per trach mask. He will be prescribed a LABA upon discharge, and I have prescribed budesinide while in patient. The patient admits to years of tobacco dependence prior to his aneurysm in 2007. Oxygen was low upon admission, and efforts to wean are not going well so far. He continues on 4.5 L via trach mask. Plan: Continue respiratory care and provide supplemental oxygen. (7) Chronic pain syndrome Impression: The patient has good reasons to have chronic pain including osteoarthritis, chronic BLE wounds, severely uncontrolled DM leading to peripheral neuropathy and his current morbidly obese state causing a lack of ambulation and profound debility. He takes Baclofen and oxycodone that has been recently increased due to worsening coccyx wound. Plan: Continue usual home meds with added IV form of narcotic if needed. Offer tylenol.
[2018-05-04] MEDS: ATORVASTATIN 10 MG TABLET PO SCH (21:27)
[2018-05-04] MEDS: SERTRALINE 50 MG TABLET PO SCH (21:27)
[2018-05-04] MEDS: GABAPENTIN 100 MG CAPSULE PO SCH (21:27)
[2018-05-05] MEDS: PIPERACILLIN/TAZOBACTAM 3.375 GM in SODIUM CHLORIDE 0.9% MINIBAG 100 ML IV SCH ×4 (00:29→17:41)
[2018-05-05] MEDS: SODIUM CHLORIDE FLUSH 0.9% 10 ML SYRINGE IVP SCH ×3 (00:33→17:42)
[2018-05-05] MEDS: SODIUM CHLORIDE 0.9% 500 ML IV PRN (05:10)
[2018-05-05] MEDS: oxyCODONE 5 MG TABLET PO PRN ×4 (05:25→21:52)
[2018-05-05 07:30] LABS: BASOPHILS % (AUTO) 0.3 %; HGB - HEMOGLOBIN 12.2 g/dL (14.0-18.0); LYMPHOCYTES % (AUTO) 11.3 %; MEAN CORPUSCULAR HEMOGLOBIN 29.3 pg (27.0-31.0); MEAN CORPUSCULAR HGB CONC 32.8 g/dL (32.0-36.0); MEAN CORPUSCULAR VOLUME 89.3 fL (80.0-94.0); MEAN PLATELET VOLUME 8.1 fL (7.4-11.4); MONOCYTES # (AUTO) 0.7 10^3/uL (0.0-1.0); MONOCYTES % (AUTO) 7.4 %; NEUTROPHILS # (AUTO) 7.1 10^3/uL (1.5-6.6); PLT - PLATELET COUNT 305 10^3/uL (130-450); RED BLOOD COUNT 4.15 10^6/uL (4.70-6.10); RED CELL DISTRIBUTION WIDTH 13.9 % (12.0-15.0); WHITE BLOOD COUNT 8.8 x10^3/uL (4.8-10.8)
[2018-05-05 07:34] LABS: ALBUMIN 3.2 g/dL (3.2-5.5); ALBUMIN/GLOBULIN RATIO 0.9 (1.0-2.2); BILIRUBIN,TOTAL 0.8 mg/dL (0.2-1.0); CALCIUM 8.9 mg/dL (8.5-10.3); CREATININE 0.8 mg/dL (0.6-1.2); TOTAL PROTEIN 6.6 g/dL (6.7-8.2)
[2018-05-05] MEDS ORDERED: FUROSEMIDE 80 MG PO SCH (09:00)
[2018-05-05] MEDS: INSULIN ASPART 300 UNIT/3 ML PEN SUBQ SCH ×7 (09:06→20:48)
[2018-05-05] MEDS: POLYETHYLENE GLYCOL 3350 17 GM PACKET PO SCH (09:08)
[2018-05-05] MEDS: INSULIN GLARGINE 300 UNIT/3 ML PEN SUBQ SCH ×2 (09:08→20:49)
[2018-05-05] MEDS: FUROSEMIDE 40 MG TABLET PO SCH (09:08)
[2018-05-05] MEDS: methylPREDNISolone SUCCINATE 40 MG/ML VIAL IVP SCH ×2 (09:08→20:40)
[2018-05-05] MEDS: ENOXAPARIN 40 MG/0.4 ML SYRINGE SUBQ SCH ×2 (09:08→20:40)
[2018-05-05] MEDS: ASPIRIN CHEW 81 MG TABLET PO SCH (09:08)
[2018-05-05] MEDS: diltiaZEM CD 120 MG CAPSULE PO SCH ×2 (09:08→20:41)
[2018-05-05] MEDS: AMIODARONE 200 MG TABLET PO SCH (09:08)
[2018-05-05] MEDS: buPROPion XL 150 MG TABLET PO SCH (09:08)
[2018-05-05] MEDS: ZINC OXIDE 20% OINT 28.35 GM TUBE TOP SCH ×2 (09:09→20:41)
[2018-05-05] MEDS: ALBUTEROL NEB 2.5 MG/3 ML INH PRN ×2 (10:35→18:00)
[2018-05-05] MEDS ORDERED: INSULIN ASPART 300 UNIT/3 ML PEN SUBQ SCH (11:11)
--- NOTE | 2018-05-05 13:09 | PROVIDER PROGRESS NOTE ---
Subjective - Prog Note Date Prog Note Date: 05/05/18 Prog Note Time: 13:09 - Subjective Pt reports feeling: Improved Subjective: Rai continues to complain of soreness in his coccyx and is mostly confined to bed bound status. He denies new symptoms such as an increased cough, increased oxygen needs, nausea, vomiting or increased sputum. Objective - Vital Signs/Intake & Output Reviewed Vital Signs: Yes Vital Signs: Vital Signs x48h Temp Pulse Pulse Resp BP Pulse Ox 05/05/18 10:35 84 20 05/05/18 08:00 36.7 C 80 16 130/72 95 Intake & Output: Intake & Output 05/02/18 05/03/18 05/04/18 05/05/18 23:59 23:59 23:59 23:59 Intake Total 1030 2350 1690 Output Total 1100 3400 2200 Balance -70 -1050 -510 - Objective General Appearance: positive: No acute distress, Alert, Lethargic Eyes Bilateral: positive: Normal inspection, PERRL Eyes: OU Conjunctivae pale ENT: positive: ENT inspection nml, Pharynx nml, No signs of dehydration Neck: positive: Trachea midline (chronic trach, midline-mature) Respiratory: positive: Chest non-tender, Wheezes, Rhonchi Cardiovascular: positive: No gallop, Irregularly irregular, Systolic murmur, Decreased pulse(s) Peripheral Pulses: 1+ Radial (R), 1+ Radial (L) Abdomen: positive: Non-tender, Nml bowel sounds, Other (obese, soft) Back: positive: Nml inspection Skin: positive: No rash, Warm, Dry Extremities: positive: Non-tender, Pedal edema (chronic BLE edema), Joint swelling Neurologic/Psychiatric: positive: Oriented x3, CN's nml (2-12), Motor nml, Sensation nml, Weakness, Depressed mood/affect Reflexes: Bicep (R): 2+, Bicep (L): 2+ - Lab Results Fish Bones: 05/06/18 06:00 05/06/18 06:00 Other Labs: Lab Results x24hrs 05/05/18 05/05/18 Range/Units 06:58 06:58 WBC 8.8 (4.8-10.8) x10^3/uL RBC 4.15 L (4.70-6.10) 10^6/uL Hgb 12.2 L (14.0-18.0) g/dL Hct 37.1 L (42.0-52.0) % MCV 89.3 (80.0-94.0) fL MCH 29.3 (27.0-31.0) pg MCHC 32.8 (32.0-36.0) g/dL RDW 13.9 (12.0-15.0) % Plt Count 305 (130-450) 10^3/uL MPV 8.1 (7.4-11.4) fL Neut # (Auto) 7.1 H (1.5-6.6) 10^3/uL Lymph # (Auto) 1.0 L (1.5-3.5) 10^3/uL Graham # (Auto) 0.7 (0.0-1.0) 10^3/uL Eos # (Auto) 0.0 (0.0-0.7) 10^3/uL Baso # (Auto) 0.0 (0.0-0.1) 10^3/uL Absolute Nucleated RBC 0.00 x10^3/uL Nucleated RBC % 0.0 /100WBC Sodium 134 L (135-145) mmol/L Potassium 4.4 (3.5-5.0) mmol/L Chloride 88 L (101-111) mmol/L Carbon Dioxide 40 H* (21-32) mmol/L Anion Gap 6.0 (6-13) BUN 28 H (6-20) mg/dL Creatinine 0.8 (0.6-1.2) mg/dL Estimated GFR (MDRD) 99 (>89) Glucose 325 H (70-100) mg/dL Calcium 8.9 (8.5-10.3) mg/dL Total Bilirubin 0.8 (0.2-1.0) mg/dL AST 35 (10-42) IU/L ALT 60 (10-60) IU/L Alkaline Phosphatase 79 (42-121) IU/L Total Protein 6.6 L (6.7-8.2) g/dL Albumin 3.2 (3.2-5.5) g/dL Globulin 3.4 (2.1-4.2) g/dL Albumin/Globulin Ratio 0.9 L (1.0-2.2) - Diagnostic Imaging Diagnostic Imaging Results: positive: Final report reviewed ABX Reporting Has patient been on IV antibiotics over the past 48 hours?: Yes Assessment/Plan - Problem List (1) Morbid obesity with BMI of 50.0-59.9, adult Impression: The patient has an admission BMI of 57.7, that is 58 now. Outside clinic notes state that he weighs ~450 lbs. Plan: After this acute illness, the patient would do well with a weight loss program and since he cannot ambulate, restricting food would actual be beneficial. (2) Pneumonia Impression: Imaging upon admission shows a left posterior lung base noted as an infiltrate. The patient admits to an increased cough, generalized weakness and fatigue and a recent course of antibiotics for his coccyx wound. The patient has an X- long permanent un-cuffed tracheostomy and according to sputum cultures, this pneumonia is not thought to be aspiration. The patient has been on IV steroids , low dose, IV antibiotics, and nebulizers using a LABA. Plan: Continue with IV treatment. Respiratory care. (3) Tracheostomy dependence Impression: The patient has a history of a brain aneurysm that occurred in 2007 and he has been trach dependent ever since that time. He has a disposable, cuffless, x- long trach and this is matured and stable. Plan: Continue nursing and respiratory care and monitor to ensure it stays intact. (4) Chronic pain syndrome Impression: The patient has good reasons to have chronic pain including osteoarthritis, chronic BLE wounds, severely uncontrolled DM leading to peripheral neuropathy and his current morbidly obese state causing a lack of ambulation and profound debility. He takes Baclofen and oxycodone that has been recently increased due to worsening coccyx wound. Plan: Continue usual home meds with added IV form of narcotic if needed. Offer tylenol. (5) Perirectal ulcer Impression: The patient has a chronic coccyx wound, and he states that this has been more painful lately. See chart for Photos. He also has scrotal skin breakdown. A [facility] nurse gave recommendations. He was recently prescribed Cipro and Augmentin as a out patient on 04/11/18 by Tyra Pedersen, PCP clinic and this was based off of a coccyx wound culture (collected on 04/06/18) that grew out entercoccus faecalis. As per chart review, notes from Jen Lindsay, PCP states, "[place] [facility] The ulcer formed after getting the patient a new bariatric bed. The first 2 beds delivered "broke" within days and the third one does not have the ability to go into reverse trendelenberg. His old bed did. He would use reverse trendelenberg to facilitate breathing and secretion control of his permanent tracheostomy. On the current bed he can only elevate the head of the bed. This has placed great pressure on his buttocks, resulting in the skin breakdown". Plan: Turns Q2 hours, frequent nursing cares, and wound care orders. (6) Diabetes type 2, uncontrolled Impression: A hemoglobin A1 C is very elevated at 8.8%, showing fair treatment at home. The patient believes that his sugars have been higher that usual at home, although was just treated for his chronic coccyx wound that became more painful. He is prescribed a very large amount of Lantus at 35 unit BID, and Novolog with meals of 20 units with meals. He has severe consequences of this and they include a large cardiac history and peripheral neuropathy. He has [facility] care givers and his PCP actually makes house calls for in-home visits. Plan: Continue usual home doses, but with an added sliding scale. Continue to monitor BS AC/HS and daily labs. 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 Blood pressures today have been controlled at 129/72. Plan: continue treatment and monitor VS. Qualifiers: Hypertension type: essential hypertension
[2018-05-05] MEDS: BUDESONIDE 0.5 MG/2 ML NEB INH SCH ×2 (17:41→18:00)
[2018-05-05] MEDS: LISINOPRIL 5 MG TABLET PO SCH (20:40)
[2018-05-05] MEDS: ATORVASTATIN 10 MG TABLET PO SCH (20:41)
[2018-05-05] MEDS: GABAPENTIN 100 MG CAPSULE PO SCH (20:41)
[2018-05-05] MEDS: SERTRALINE 50 MG TABLET PO SCH (20:43)
[2018-05-06] MEDS: PIPERACILLIN/TAZOBACTAM 3.375 GM in SODIUM CHLORIDE 0.9% MINIBAG 100 ML IV SCH ×4 (00:18→18:31)
[2018-05-06] MEDS: SODIUM CHLORIDE FLUSH 0.9% 10 ML SYRINGE IVP SCH ×3 (03:14→18:31)
[2018-05-06 06:18] LABS: BASOPHILS % (AUTO) 0.2 %; HGB - HEMOGLOBIN 12.5 g/dL (14.0-18.0); LYMPHOCYTES # (AUTO) 0.8 10^3/uL (1.5-3.5); LYMPHOCYTES % (AUTO) 10.5 %; MEAN CORPUSCULAR HEMOGLOBIN 29.5 pg (27.0-31.0); MEAN CORPUSCULAR VOLUME 89.5 fL (80.0-94.0); MEAN PLATELET VOLUME 7.8 fL (7.4-11.4); MONOCYTES # (AUTO) 0.4 10^3/uL (0.0-1.0); MONOCYTES % (AUTO) 5.1 %; NEUTROPHILS % (AUTO) 84.2 %; PLT - PLATELET COUNT 267 10^3/uL (130-450); RED BLOOD COUNT 4.24 10^6/uL (4.70-6.10); RED CELL DISTRIBUTION WIDTH 13.9 % (12.0-15.0); WHITE BLOOD COUNT 7.2 x10^3/uL (4.8-10.8)
[2018-05-06 06:33] LABS: ALBUMIN 3.1 g/dL (3.2-5.5); ALBUMIN/GLOBULIN RATIO 0.9 (1.0-2.2); BILIRUBIN,TOTAL 0.8 mg/dL (0.2-1.0); CALCIUM 8.8 mg/dL (8.5-10.3); CREATININE 0.8 mg/dL (0.6-1.2); TOTAL PROTEIN 6.4 g/dL (6.7-8.2)
[2018-05-06] MEDS: BUDESONIDE 0.5 MG/2 ML NEB INH SCH ×2 (07:50→19:36)
[2018-05-06] MEDS: ALBUTEROL NEB 2.5 MG/3 ML INH PRN ×2 (07:50→19:36)
[2018-05-06] MEDS: INSULIN ASPART 300 UNIT/3 ML PEN SUBQ SCH ×7 (08:33→20:56)
[2018-05-06] MEDS: INSULIN GLARGINE 300 UNIT/3 ML PEN SUBQ SCH ×2 (08:34→20:56)
[2018-05-06] MEDS: methylPREDNISolone SUCCINATE 40 MG/ML VIAL IVP SCH (08:34)
[2018-05-06] MEDS: buPROPion XL 150 MG TABLET PO SCH (08:35)
[2018-05-06] MEDS: ASPIRIN CHEW 81 MG TABLET PO SCH (08:35)
[2018-05-06] MEDS: SODIUM CHLORIDE FLUSH 0.9% 10 ML SYRINGE IVP PRN (08:35)
[2018-05-06] MEDS: ENOXAPARIN 40 MG/0.4 ML SYRINGE SUBQ SCH ×2 (08:35→20:56)
[2018-05-06] MEDS: ZINC OXIDE 20% OINT 28.35 GM TUBE TOP SCH ×2 (08:35→21:01)
[2018-05-06] MEDS: FUROSEMIDE 40 MG TABLET PO SCH (08:35)
[2018-05-06] MEDS: oxyCODONE 5 MG TABLET PO PRN ×4 (08:36→20:55)
[2018-05-06] MEDS: POLYETHYLENE GLYCOL 3350 17 GM PACKET PO SCH (08:36)
[2018-05-06] MEDS: AMIODARONE 200 MG TABLET PO SCH (08:36)
[2018-05-06] MEDS: LISINOPRIL 5 MG TABLET PO SCH ×2 (08:36→20:54)
[2018-05-06] MEDS: diltiaZEM CD 120 MG CAPSULE PO SCH ×2 (08:36→20:55)
[2018-05-06] MEDS: SODIUM CHLORIDE 0.9% 500 ML IV PRN (08:45)
--- NOTE | 2018-05-06 17:32 | PROVIDER PROGRESS NOTE ---
Subjective - Prog Note Date Prog Note Date: 05/06/18 Prog Note Time: 17:32 - Subjective Pt reports feeling: Improved Subjective: Rai has no complaints and believes he is much improved since the time of admission. He denies chest pain, increased SOB, nausea, vomiting or an increased cough or sputum production. Current Medications - Current Medications Current Medications: Active Medications Albuterol () 2.5 mg INH RTBID PRN PRN Reason: SHORTNESS OF AIR/WHEEZING Last Admin: 05/07/18 07:34 Dose: 2.5 mg Amiodarone HCl (Pacerone) 200 mg PO DAILY [facility] Last Admin: 05/07/18 08:33 Dose: 200 mg Amoxicillin/Clavulanate Potassium (Augmentin 875/125) 1 tab PO BID [facility] Aspirin ([place]ony Aspirin) 81 mg PO DAILY [facility] Last Admin: 05/07/18 08:33 Dose: 81 mg Atorvastatin Calcium (Lipitor) 20 mg PO QPM [facility] Last Admin: 05/06/18 20:55 Dose: 20 mg Baclofen (Lioresal) 10 mg PO QID PRN PRN Reason: Spasms Last Admin: 05/06/18 15:46 Dose: 10 mg Budesonide (Pulmicort) 0.5 mg INH RTBID [facility] Last Admin: 05/07/18 07:34 Dose: 0.5 mg Bupropion HCl (Wellbutrin Xl) 300 mg PO DAILY [facility] Last Admin: 05/07/18 08:31 Dose: 300 mg Clindamycin HCl (Cleocin) 450 mg PO Q8HR [facility] Diltiazem HCl (Cardizem Cd) 120 mg PO BID [facility] Last Admin: 05/07/18 08:33 Dose: 120 mg Enoxaparin Sodium (Lovenox) 40 mg SUBQ BID [facility] Last Admin: 05/07/18 08:33 Dose: 40 mg Furosemide (Lasix) 60 mg PO DAILY [facility] Last Admin: 05/07/18 08:57 Dose: Not Given Gabapentin (Neurontin) 200 mg PO QPM [facility] Last Admin: 05/06/18 20:55 Dose: 200 mg Sodium Chloride (Normal Saline 0.9%) 500 mls @ 0 mls/hr IV Q24H PRN; TKO PRN Reason: TKO RATE Last Infusion: 05/07/18 00:47 Dose: 20 mls/hr Insulin Aspart (Novolog) 3 - 11 unit SUBQ 0800,1200,1700,2100 [place] PRN Reason: Protocol Last Admin: 05/07/18 08:34 Dose: 3 unit Insulin Aspart (Novolog) 35 unit SUBQ TIDWM [facility] Last Admin: 05/07/18 08:33 Dose: 35 unit Insulin Glargine (Lantus Solostar) 42 unit SUBQ BID [facility] Last Admin: 05/07/18 08:37 Dose: 42 unit Lidocaine HCl (Xylocaine Uro-Jet 2%) 2.5 ml UR Q4H PRN PRN Reason: PAIN Last Admin: 05/03/18 18:26 Dose: 2.5 ml Lisinopril (Zestril) 10 mg PO BID [facility] Last Admin: 05/07/18 08:51 Dose: 10 mg Multi-Ingredient Ointment (Zinc Oxide) 1 applic TOP BID [facility] Last Admin: 05/06/18 21:01 Dose: 1 applic Oxycodone HCl (Roxicodone) 10 mg PO Q4HR PRN PRN Reason: PAIN Last Admin: 05/07/18 08:31 Dose: 10 mg (Icosapent Ethyl [ (Vascepa] 2 Gm) Tab) 1 each PO BID [facility] Last Admin: 05/07/18 08:58 Dose: Not Given Polyethylene Glycol (Miralax) 17 gm PO DAILY [facility] Last Admin: 05/07/18 08:51 Dose: 17 gm Prednisone (Deltasone) 40 mg PO DAILYWM [facility] Last Admin: 05/07/18 08:33 Dose: 40 mg Saccharomyces Boulardii (Florastor) 500 mg PO BIDWM [facility] Sertraline HCl (Zoloft) 200 mg PO QPM [facility] Last Admin: 05/06/18 20:55 Dose: 200 mg Sodium Chloride (Normal Saline Flush 0.9%) 10 ml IVP PRN PRN PRN Reason: NEEDED PER PROVIDER ORDERS Last Admin: 05/06/18 08:35 Dose: 10 ml Sodium Chloride (Normal Saline Flush 0.9%) 10 ml IVP 0100,0900,1700 [facility] Last Admin: 05/07/18 08:58 Dose: Not Given Spironolactone (Aldactone) 25 mg PO DAILY [facility] Vitamin A/Vitamin D (Vitamin A & D Ointment) 1 applic TOP PRN PRN PRN Reason: Skin Care Last Admin: 05/06/18 20:55 Dose: 1 applic Insulin Glargine,Hum.rec.anlog [Lantus Solostar] 38 unit SUBQ BID 03/20/13 Lisinopril 10 mg PO BID 03/20/13 Lovastatin 40 mg PO QPM 03/20/13 Multivitamin [Multivitamins] 1 each PO DAILY 03/20/13 metFORMIN [Glucophage] 1,000 mg PO BIDWM 03/20/13 Aspirin 81 mg PO DAILY 10/04/16 Insulin Aspart [Novolog Flexpen] 20 unit SUBQ TIDWM MDD 90 UNITS 10/04/16 Furosemide [Lasix] 80 mg PO DAILY 03/11/17 Gabapentin 200 mg PO QPM 03/11/17 Icosapent Ethyl [Vascepa] 2 gm PO BID 03/12/17 Sertraline HCl [Zoloft] 200 mg PO QPM 03/12/17 Albuterol 3 ml INH BID PRN 05/03/18 Amiodarone HCl 200 mg PO DAILY 05/03/18 Baclofen [Baclofen] 10 mg PO QID PRN 05/03/18 Bupropion HCl [Bupropion Xl] 300 mg PO DAILY 05/03/18 Crowder-3 Fatty Acids/Fish Oil [Crowder-3 Fish Oil 1,000 mg Sfgl] 1 gm PO BID Oxycodone HCl 10 mg PO Q4HR PRN MDD 60MG 05/03/18 Objective - Vital Signs/Intake & Output Reviewed Vital Signs: Yes Vital Signs: Vital Signs x48h Temp Pulse Resp BP Pulse Ox 05/06/18 15:33 36.7 C 84 18 131/57 H 96 Intake & Output: Intake & Output 05/03/18 05/04/18 05/05/18 05/06/18 23:59 23:59 23:59 23:59 Intake Total 1030 2350 3870 1780.000 Output Total 1100 3400 6375 5550 Balance -70 -6684 -0615 -3770.000 - Objective General Appearance: positive: No acute distress, Alert Eyes Bilateral: positive: Normal inspection, PERRL ENT: positive: ENT inspection nml, Pharynx nml, No signs of dehydration Neck: positive: Nml inspection, Thyroid nml - Lab Results Fish Bones: 05/06/18 06:00 05/06/18 06:00 Other Labs: Lab Results x24hrs 05/06/18 05/06/18 05/06/18 Range/Units 06:00 06:00 06:00 WBC 7.2 (4.8-10.8) x10^3/uL RBC 4.24 L (4.70-6.10) 10^6/uL Hgb 12.5 L (14.0-18.0) g/dL Hct 38.0 L (42.0-52.0) % MCV 89.5 (80.0-94.0) fL MCH 29.5 (27.0-31.0) pg MCHC 33.0 (32.0-36.0) g/dL RDW 13.9 (12.0-15.0) % Plt Count 267 (130-450) 10^3/uL MPV 7.8 (7.4-11.4) fL Neut # (Auto) 6.0 (1.5-6.6) 10^3/uL Lymph # (Auto) 0.8 L (1.5-3.5) 10^3/uL [place] # (Auto) 0.4 (0.0-1.0) 10^3/uL Eos # (Auto) 0.0 (0.0-0.7) 10^3/uL Baso # (Auto) 0.0 (0.0-0.1) 10^3/uL Absolute Nucleated RBC 0.00 x10^3/uL Nucleated RBC % 0.0 /100WBC Sodium 136 (135-145) mmol/L Potassium 4.4 (3.5-5.0) mmol/L Chloride 88 L (101-111) mmol/L Carbon Dioxide 41 H* (21-32) mmol/L Anion Gap 7.0 (6-13) BUN 27 H (6-20) mg/dL Creatinine 0.8 (0.6-1.2) mg/dL Estimated GFR (MDRD) 99 (>89) Glucose 285 H (70-100) mg/dL Calcium 8.8 (8.5-10.3) mg/dL Total Bilirubin 0.8 (0.2-1.0) mg/dL AST 49 H (10-42) IU/L ALT 82 H (10-60) IU/L Alkaline Phosphatase 79 (42-121) IU/L B-Natriuretic Peptide 66 (5-100) pg/mL Total Protein 6.4 L (6.7-8.2) g/dL Albumin 3.1 L (3.2-5.5) g/dL Globulin 3.3 (2.1-4.2) g/dL Albumin/Globulin Ratio 0.9 L (1.0-2.2) ABX Reporting Has patient been on IV antibiotics over the past 48 hours?: Yes Assessment/Plan - Problem List (1) Morbid obesity with BMI of 50.0-59.9, adult Impression: The patient has an admission BMI of 57.7, that is 58 now. Outside clinic notes state that he weighs ~450 lbs. Plan: After this acute illness, the patient would do well with a weight loss program and since he cannot ambulate, restricting food and/or help with selecting better food choices would actual be beneficial. (2) Pneumonia Impression: Imaging upon admission shows a left posterior lung base noted as an infiltrate. The patient admits to an increased cough, generalized weakness and fatigue and a recent course of antibiotics for his coccyx wound at the time of admission. Today the patient admits to less sputum and an overall improved feeling of wellness. He states he is sleeping "ok" but the bed is generally uncomfortable. The patient has an X-long permanent un-cuffed tracheostomy and according to sputum cultures, this pneumonia is not thought to be aspiration. The patient has been on IV steroids, not changed to oral, IV antibiotics that will be changed by the AM, and nebulizers using a LABA. Plan: Continue with IV treatment. Respiratory care. (3) Tracheostomy dependence Impression: The patient has a history of a brain aneurysm that occurred in 2007 and he has been trach dependent ever since that time. He has a disposable, cuffless, x- long trach and this is matured and stable. Plan: Continue nursing and respiratory care and monitor to ensure it stays intact. (4) Diabetes type 2, uncontrolled Impression: A hemoglobin A1 C is mildly elevated at 8.8%, showing fair treatment at home. The patient believes that his sugars have been higher that usual at home, although was just treated for his chronic coccyx wound that became more painful. He is prescribed a very large amount of Lantus at 35 unit BID, and Novolog with meals of 20 units with meals. He has severe consequences of this and they include a large cardiac history and peripheral neuropathy. He has [facility] care givers and his PCP actually makes house calls for in-home visits. Adjustments to Lantus have been made while in the hospital and include; Lantus 42 units BID, 35 units Aspart with meals, and SSI. Day time blood glucose levels have been more favorable ~200 or less and early AM sugars 150 or less. Plan: Continue to monitor BS AC/HS and daily labs. Qualifiers: Diabetes mellitus fdc insulin use: with fdc use Diabetes mellitus complication status: with kidney complications Diabetes mellitus complication detail: with microalbuminuria Qualified Code(s): E11.29 - Type 2 diabetes mellitus with other diabetic kidney complication; E11.65 - Type 2 diabetes mellitus with hyperglycemia; R80.9 - Proteinuria, unspecified; Z79.4 - [employer] (current) use of insulin (5) Pressure ulcer of sacral region, unspecified stage Impression: The patient has a chronic coccyx wound, that seems to be improved since admission with great nursing care and every 2 hour turns. The patient admits to much less pain in his "tailbone" today. Plan: Turns Q2 hours, frequent nursing cares, and follow wound care orders. Qualifiers: Pressure injury stage: stage 3 Qualified Code(s): L89.153 - Pressure ulcer of sacral region, stage 3 (6) COPD with hypoxia Impression: The patient is trach dependent and admits to using 3.5L oxygen via trach mask at home. He has still required slightly more oxygen since being admitted and is noted to have an increased, likely chronic, elevated carbon dioxide level of ~40 on [facility] daily labs. Plan: continue supplemental oxygen and good trach care. (7) Chronic pain syndrome Impression: The patient has good reasons to have chronic pain including osteoarthritis, chronic BLE wounds, severely uncontrolled DM leading to peripheral neuropathy and his current morbidly obese state causing a lack of ambulation and profound debility. He takes Baclofen and oxycodone that has been recently increased as per PCP due to worsening coccyx wound. He is also prescribed gabapentin. Plan: Continue usual home meds.
[2018-05-06] MEDS: GABAPENTIN 100 MG CAPSULE PO SCH (20:55)
[2018-05-06] MEDS: SERTRALINE 50 MG TABLET PO SCH (20:55)
[2018-05-06] MEDS: ATORVASTATIN 10 MG TABLET PO SCH (20:55)
[2018-05-07] MEDS: PIPERACILLIN/TAZOBACTAM 3.375 GM in SODIUM CHLORIDE 0.9% MINIBAG 100 ML IV SCH ×2 (00:17→06:12)
[2018-05-07] MEDS: SODIUM CHLORIDE FLUSH 0.9% 10 ML SYRINGE IVP SCH ×2 (00:17→08:58)
[2018-05-07] MEDS: oxyCODONE 5 MG TABLET PO PRN ×3 (03:09→14:29)
[2018-05-07] MEDS: BUDESONIDE 0.5 MG/2 ML NEB INH SCH (07:34)
[2018-05-07] MEDS: ALBUTEROL NEB 2.5 MG/3 ML INH PRN (07:34)
[2018-05-07] MEDS ORDERED: predniSONE 20 MG TABLET PO SCH (08:00)
[2018-05-07] MEDS: buPROPion XL 150 MG TABLET PO SCH (08:31)
[2018-05-07] MEDS: INSULIN ASPART 300 UNIT/3 ML PEN SUBQ SCH ×6 (08:33→17:15)
[2018-05-07] MEDS: FUROSEMIDE 40 MG TABLET PO SCH (08:33)
[2018-05-07] MEDS: ASPIRIN CHEW 81 MG TABLET PO SCH (08:33)
[2018-05-07] MEDS: AMIODARONE 200 MG TABLET PO SCH (08:33)
[2018-05-07] MEDS: diltiaZEM CD 120 MG CAPSULE PO SCH (08:33)
[2018-05-07] MEDS: ENOXAPARIN 40 MG/0.4 ML SYRINGE SUBQ SCH (08:33)
[2018-05-07] MEDS: INSULIN GLARGINE 300 UNIT/3 ML PEN SUBQ SCH (08:37)
[2018-05-07] MEDS ORDERED: CLINDAMYCIN 150 MG CAPSULE PO SCH ×2 (08:45→20:00)
[2018-05-07] MEDS: LISINOPRIL 5 MG TABLET PO SCH (08:51)
[2018-05-07] MEDS: POLYETHYLENE GLYCOL 3350 17 GM PACKET PO SCH (08:51)
[2018-05-07] MEDS ORDERED: FUROSEMIDE 40 MG TABLET PO SCH (09:00)
[2018-05-07] MEDS ORDERED: SACCHAROMYCES BOULARDII 250 MG CAPSULE PO SCH (09:00)
[2018-05-07] MEDS ORDERED: SPIRONOLACTONE 25 MG TABLET PO SCH (09:00)
[2018-05-07] MEDS ORDERED: AMOX/CLAV 875 MG/125 MG TABLET PO SCH (09:00)
--- NOTE | 2018-05-07 09:09 | DISCHARGE SUMMARY ---
Discharge Summary Admit Date: 05/03/18 Discharge Date: 05/07/18 Discharging Provider: FELA Saldivar Primary Care Provider: Jen Lindsay Code Status: Attempt Resuscitation Condition at Discharge: Good Discharge Disposition: Home Health Service - DIAGNOSES Admission Diagnoses: Morbid (severe) obesity due to excess calories (E66.01) Pneumonia, unspecified organism (J18.9) Tracheostomy status (Z93.0) Type 2 diabetes mellitus without complications (E11.9) Discharge Diagnoses with Status of Each Condition: Pneumonia (J18.9) new on this admission, treatment to continue. Moderate to severe pulmonary hypertension (I27.20) new on this admission, adjustments to meds, started on Spironolactone. Morbid obesity (E66.01) chronic, stable. 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 Diabetes mellitus type 2, insulin dependent (E11.9) chronic, stable. Chronic pain syndrome (G89.4) chronic, stable. 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 Not thought to be currently infected. 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 Over the past week, the patient and his mother admit to generalized weakness, fatigue and increased shortness of breath. He has a non-cuffed trach, and denies problems with swallowing or aspiration. He believes to have had mild fever and chills, increased SOB, increased sputum production and generalized fatigue. He gets daily [employer] workers, and weekly nursing care. He texted one of his workers early this AM around 3 and requested that someone come by to check on him. Once the worker was there, she noted his breathing to be more labored, and to be hypoxic with an oxygen saturation of 84%. He wears a trach mask at home for supplemental oxygen and has been having an increased cough with thick green sputum. Later this morning , the nurse arrived and checked his oxygen saturation which was now only 74%, so 911 was called. En route he was given nebulizers, nitro paste, and lasix. Once arriving in the ED via EMS, he was found to have an elevated WBC count of 11.9, mildly anemia with an H/H of 12.5/39.0. An elevated carbon dioxide level of 43, and a normal troponin. Imaging shows pneumonia. He denies SOB, chest pain, nausea, vomiting, or dizziness. He will be admitted to inpatient for further care and a wound consult. - CONSULTS | PROCEDURES Consultations: wound care consult, seen by nurse Marianna. - HOSPITAL COURSE Hospital Course: The following diagnoses were prevalent during this hospital stay: (1) Morbid obesity with BMI of 50.0-59.9, adult The patient has an admission BMI of 57.7, that is 58.0 upon discharge. Outside clinic notes state that he weighs ~450 lbs. Our recommendation is that after this acute illness, the patient would do well with a weight loss program and since he cannot ambulate, restricting food and/or help with selecting better food choices would actual be beneficial. (2) Pneumonia Imaging upon admission shows a left posterior lung base noted as an infiltrate. The patient admits to an increased cough, generalized weakness and fatigue and a recent course of antibiotics for his coccyx wound at the time of admission. Today the patient admits to less sputum and an overall improved feeling of wellness. He states he is sleeping "ok" but the bed is generally uncomfortable. The patient has an X-long permanent un-cuffed tracheostomy and according to sputum cultures, this pneumonia is not thought to be aspiration. The patient has been on IV steroids, now changed to oral, IV antibiotics that were changed to oral prior to discharge, and nebulizers using a LABA that was continued in a nebulizer form at home. Final sputum culture results were not organism specific, and showed gram negative rods. He was prescribed 2 agents and a probiotic, see med list. (3) Tracheostomy dependence The patient has a history of a brain aneurysm that occurred in 2007 and he has been trach dependent ever since that time. He has a disposable, cuffless, x- long trach and this is matured and stable. The patient had continuous nursing care and respiratory care. Prior to discharge, the patient's "private duty nurse" who claims to have known the patient since he was a little boy is also trained in trach care and admits to changing his trach as she does at his home. She was very supportive and notes the patient's trach to be in good shape without any abnormalities. (4) Diabetes type 2, uncontrolled A hemoglobin A1 C is mildly elevated at 8.8%, showing fair treatment at home. The patient believes that his sugars have been higher that usual at home, although was just treated for his chronic coccyx wound that became more painful. He is prescribed a very large amount of Lantus at 35 unit BID, and Novolog with meals of 20 units with meals. He has severe consequences of this and they include a large cardiac history and peripheral neuropathy. He has [facility] care givers and his PCP actually makes house calls for in-home visits. Adjustments to Lantus were made while in the hospital and including; Lantus 42 units BID, 35 units Aspart with meals, and SSI. Day time blood glucose levels have been more favorable ~200 or less and early AM sugars 150 or less. This is considered to be stable at the time of discharge and the Metformin was resumed. (5) Pressure ulcer of sacral region, unspecified stage The patient has a chronic coccyx wound, that seems to be improved since admission with great nursing care and every 2 hour turns. The patient admits to much less pain in his "tailbone" in general. He was provided with superb, around the clock nursing care including turns Q2 hours, frequent ADL assistance , medication administration, trach care, and wound care orders. (6) COPD with hypoxia The patient is trach dependent and admits to using 3.5L oxygen via trach mask at home. He has still required slightly more oxygen since being admitted and is noted to have an increased, likely chronic, elevated carbon dioxide level of ~40 on [facility] daily labs. The patient was continued on supplemental oxygen and given good trach care. This condition is considered chronically stable upon discharge. The patient's mental status was unchanged and a family friend who knows the patient personally, can attest to NO changes in his mentation. (7) Chronic pain syndrome The patient has good reasons to have chronic pain including osteoarthritis, chronic BLE wounds, severely uncontrolled DM leading to peripheral neuropathy and his current morbidly obese state causing a lack of ambulation and profound debility. He takes Baclofen and oxycodone that has been recently increased as per PCP due to worsening coccyx wound. He is also prescribed gabapentin. The patient was continued on his usual home meds. (8) Pulmonary hypertension The patient had an echocardiogram upon admission for hypertension and known CAD. He was found to have abnormal right sided heart pressures. An estimated RVSP at rest was 41 mmHg. This a likely consequence of his underlying COPD, and acute pneumonia. He was started on Spironolactone and adjustments to his lasix was made. He was instructed to NOT take any potassium supplements. Disposition: The patient was in stable condition at the time of discharge and taken via BLS due to his bed bound status and the chronic need for oxygen at 3.5L via trach mask. He is returning home with care givers that has already been established prior to admission. He is to follow up with his PCP within one week. - ALLERGIES Allergies/Adverse Reactions: Allergies Allergy/AdvReac Type Severity Reaction Status Date / Time niacin Allergy Severe Hives Verified 05/03/18 13:01 - MEDICATIONS Home Medications: Ambulatory Orders Medication Instructions Recorded Confirmed Insulin Glargine,Hum.rec.anlog 38 unit SUBQ BID 03/20/13 05/03/18 [Lantus Solostar] Lisinopril 10 mg PO BID 03/20/13 05/03/18 Lovastatin 40 mg PO QPM 03/20/13 05/03/18 Multivitamin [Multivitamins] 1 each PO DAILY 03/20/13 05/03/18 metFORMIN [Glucophage] 1,000 mg PO BIDWM 03/20/13 05/03/18 Aspirin 81 mg PO DAILY 10/04/16 05/03/18 Insulin Aspart [Novolog Flexpen] 20 unit SUBQ TIDWM MDD 90 UNITS 10/04/16 Gabapentin 200 mg PO QPM 03/11/17 05/03/18 Icosapent Ethyl [Vascepa] 2 gm PO BID 03/12/17 05/03/18 Sertraline HCl [Zoloft] 200 mg PO QPM 03/12/17 05/03/18 diltiaZEM CD [Cardizem Cd] 120 mg PO BID #60 capsule 03/14/17 05/03/18 Albuterol 3 ml INH BID PRN 05/03/18 05/03/18 Amiodarone HCl 200 mg PO DAILY 05/03/18 05/03/18 Baclofen 10 mg PO QID PRN 05/03/18 05/03/18 Bupropion HCl [Bupropion Xl] 300 mg PO DAILY 05/03/18 05/03/18 [place]-3 Fatty Acids/Fish Oil 1 gm PO BID 05/03/18 05/03/18 [[place]-3 Fish Oil 1,000 mg Sfgl] Oxycodone HCl 10 mg PO Q4HR PRN MDD 60MG 05/03/18 05/03/18 Amox/Clav 875/125 [Augmentin 1 tab PO BID #20 tablet 05/07/18 875/125] Budesonide [Pulmicort] 0.5 mg IH BID #60 neb 05/07/18 Clindamycin [Cleocin] 450 mg PO Q8HR 10 Days #90 capsule 05/07/18 Furosemide [Lasix] 60 mg PO DAILY #90 tablet 05/07/18 Saccharomyces Boulardii [Florastor] 250 mg PO BID #40 capsule 05/07/18 Spironolactone [Aldactone] 25 mg PO DAILY #30 tablet 05/07/18 predniSONE [Prednisone] 20 mg PO DAILY 3 Days #3 tablet 05/07/18 - PHYSICAL EXAM AT DISCHARGE General Appearance: positive: No acute distress, Alert Eyes Bilateral: positive: Normal inspection, PERRL ENT: positive: ENT inspection nml, No signs of dehydration, Pharyngeal erythema , Dry mucous membranes Neck: positive: No JVD, Trachea midline, Lymphadenopathy (R), Lymphadenopathy (L ), Stiff neck, Other (mature x-long, chronic trach-normal) Respiratory: positive: Chest non-tender, No respiratory distress, Other ( diminished bilaterally) Cardiovascular: positive: Regular rate & rhythm, No gallop, Systolic murmur, Decreased pulse(s) Peripheral Pulses: positive: 2+ Abdomen: positive: Non-tender, Nml bowel sounds, Other (obese, soft) Back: positive: Nml inspection Skin: positive: No rash, Warm, Dry Extremities: positive: Non-tender, Pedal edema (chronic BLE edema), Joint swelling Neurologic/Psychiatric: positive: Oriented x3, CN's nml (2-12), Motor nml, Sensation nml, Depressed mood/affect Reflexes: Bicep (R): 3+, Bicep (L): 3+ - LABS Result Diagrams: 05/06/18 06:00 05/06/18 06:00 - DIAGNOSTIC IMAGING Diagnostic Imaging Results: Final report reviewed Diagnostic Imaging Results Comments: EXAM: CHEST RADIOGRAPHY EXAM DATE: 05/03/2018 02:12 PM. IMPRESSION: 1. Mild cardiomegaly. 2. Small left posterior lung base infiltrate and effusion. 3. Mildly low lung volumes. ECHOCARDIOGRAM 05/05/18 Final 1. This was a technically difficult study. 2. The LV size is normal. Mild concentric LV hypertrophy. Overall LV systolic function is normal with an EF of 55-60%. 3. Mild RV enlargement. The RV systolic finction is normal. 4. Mild tricuspid regurg. Mildly abnormal right heart pressures. The RVSP at rest is 41 mmHg. Read by Miguel Sandy MD. - FOLLOW UP Follow Up: Disposition: Home Health Service Condition: Good Prescriptions: Clindamycin [Cleocin] 450 mg PO Q8HR 10 Days #90 capsule Amox/Clav 875/125 [Augmentin 875/125] 1 tab PO BID #20 tablet Budesonide [Pulmicort] 0.5 mg IH BID #60 neb Furosemide [Lasix] 60 mg PO DAILY #90 tablet Saccharomyces Boulardii [Florastor] 250 mg PO BID #40 capsule Spironolactone [Aldactone] 25 mg PO DAILY #30 tablet Prednisone 20 mg PO daily #3 tablet Diet: Diabetic Activity Restrictions: Activity as Tolerated Shower Restrictions: No Driving Restrictions: Yes Weight Bearing: Full Weight Additional Instructions or Follow Up instructions: You have been admitted for treatment of pneumonia. You were given IV antibiotics and IV steroids that were both changed to oral forms. These are to continue with a probiotic for another week. You had an echocardiogram that shows pulmonary hypertension, so an adjustment to your lasix was made in order to add Spironolactone which is specific to this condition. You should take a alf inhaler to keep your airway open and to prevent more pneumonia. I have sent this to the pharmacy in a nebulizer solution. Please see your PCP within one week. - TIME SPENT Time Spent in Discharge (Minutes): 55
--- NOTE | 2018-05-07 09:09 | Discharge Plan ---
Discharge Plan Disposition: Home Health Service Condition: Good Prescriptions: Clindamycin [Cleocin] 450 mg PO Q8HR 10 Days #90 capsule Amox/Clav 875/125 [Augmentin 875/125] 1 tab PO BID #20 tablet Budesonide [Pulmicort] 0.5 mg IH BID #60 neb Furosemide [Lasix] 60 mg PO DAILY #90 tablet Saccharomyces Boulardii [Florastor] 250 mg PO BID #40 capsule Spironolactone [Aldactone] 25 mg PO DAILY #30 tablet Diet: Diabetic Activity Restrictions: Activity as Tolerated Shower Restrictions: No Driving Restrictions: Yes Weight Bearing: Full Weight Additional Instructions or Follow Up instructions: You have been admitted for treatment of pneumonia. You were given IV antibiotics and IV steroids that were both changed to oral forms. These are to continue with a probiotic for another week. You had an echocardiogram that shows pulmonary hypertension, so an adjustment to your lasix was made in order to add Spironolactone which is specific to this condition. You should take a senior care inhaler to keep your airway open and to prevent more pneumonia. I have sent this to the pharmacy in a nebulizer solution. Please see your PCP within one week. Follow-Up Care: [facility] - Wound/Ostomy No Smoking: If you smoke, Please STOP! Call for help. Follow-up with: Jen Lindsay ARNP [Primary Care Provider] -
[2018-05-07] MEDS: SODIUM CHLORIDE FLUSH 0.9% 10 ML SYRINGE IVP PRN (09:13)
[2018-05-07] MEDS: ZINC OXIDE 20% OINT 28.35 GM TUBE TOP SCH (12:10)
[2018-05-07 16:49] VITALS: BP 128/65
== END 2018-05-07 17:55 | disposition home health service (06) | DRG 177 ==
LOC: EDUNIT# → ED 12:46 → MS2 15:53
PROVIDERS: ADMIT Nurse Practitioner; ATTEND Nurse Practitioner
DX: J15.6 Pneumonia due to other Gram-negative bacteria (principal); L89.153 Pressure ulcer of sacral region, stage 3; I50.43 Acute on chronic combined systolic (congestive) and diastolic (congestive) heart failure; Z68.43 Body mass index [BMI] 50.0-59.9, adult; J44.0 Chronic obstructive pulmonary disease with (acute) lower respiratory infection; I69.051 Hemiplegia and hemiparesis following nontraumatic subarachnoid hemorrhage affecting right dominant side; B95.2 Enterococcus as the cause of diseases classified elsewhere; L89.891 Pressure ulcer of other site, stage 1; L89.892 Pressure ulcer of other site, stage 2; E66.01 Morbid (severe) obesity due to excess calories; I27.23 Pulmonary hypertension due to lung diseases and hypoxia; G89.4 Chronic pain syndrome; R09.02 Hypoxemia; E78.5 Hyperlipidemia, unspecified; I48.91 Unspecified atrial fibrillation; I11.0 Hypertensive heart disease with heart failure; J38.00 Paralysis of vocal cords and larynx, unspecified; G47.33 Obstructive sleep apnea (adult) (pediatric); F32.9 Major depressive disorder, single episode, unspecified; R06.89 Other abnormalities of breathing; E11.65 Type 2 diabetes mellitus with hyperglycemia; E11.42 Type 2 diabetes mellitus with diabetic polyneuropathy; E11.29 Type 2 diabetes mellitus with other diabetic kidney complication; M19.90 Unspecified osteoarthritis, unspecified site; I25.10 Atherosclerotic heart disease of native coronary artery without angina pectoris; D64.9 Anemia, unspecified; F41.9 Anxiety disorder, unspecified; K59.09 Other constipation; N40.1 Benign prostatic hyperplasia with lower urinary tract symptoms; N39.498 Other specified urinary incontinence; R35.0 Frequency of micturition; R35.1 Nocturia; Z79.4 Long term (current) use of insulin; Z93.0 Tracheostomy status; Z99.81 Dependence on supplemental oxygen; Z74.01 Bed confinement status; Z79.899 Other long term (current) drug therapy; Z79.891 Long term (current) use of opiate analgesic; Z98.84 Bariatric surgery status; Z87.891 Personal history of nicotine dependence; Z86.79 Personal history of other diseases of the circulatory system; Z86.14 Personal history of Methicillin resistant Staphylococcus aureus infection
CPT/HCPCS: 36415; 71046; 80048; 80053; 83036; 83880; 84484; 85025; 87070; 87205; 93306; 94640; 96365; 96367; 99284

== ENCOUNTER 2018-05-07 17:53 | Outpatient (CLI) | payer MEDICAID | END 2018-05-07 17:54 | disposition home or self-care (01) | LOC: EMS 17:53 | PROVIDERS: ATTEND Surgery | DX: J18.9 Pneumonia, unspecified organism (principal); Z74.01 Bed confinement status | CPT/HCPCS: A0425; A0428; A0999 ==

== ENCOUNTER 2018-06-13 06:00 | Outpatient (CLI) | payer MEDICAID | END 2018-06-13 06:01 | disposition critical access hospital (66) | LOC: EMS 06:00 | PROVIDERS: ATTEND Surgery | DX: R06.00 Dyspnea, unspecified (principal) | CPT/HCPCS: A0425; A0427; A0999 ==

== ENCOUNTER 2018-06-13 06:32 | Inpatient (IN) | payer MEDICAID ==
[2018-06-13 07:01] LABS: BASOPHILS # (AUTO) 0.1 10^3/uL (0.0-0.1); BASOPHILS % (AUTO) 0.6 %; EOSINOPHILS # (AUTO) 0.1 10^3/uL (0.0-0.7); EOSINOPHILS % (AUTO) 1.1 %; HGB - HEMOGLOBIN 13.5 g/dL (14.0-18.0); LYMPHOCYTES # (AUTO) 1.4 10^3/uL (1.5-3.5); LYMPHOCYTES % (AUTO) 13.2 %; MEAN CORPUSCULAR HEMOGLOBIN 28.7 pg (27.0-31.0); MEAN CORPUSCULAR HGB CONC 32.8 g/dL (32.0-36.0); MEAN CORPUSCULAR VOLUME 87.6 fL (80.0-94.0); MEAN PLATELET VOLUME 7.7 fL (7.4-11.4); MONOCYTES # (AUTO) 0.7 10^3/uL (0.0-1.0); MONOCYTES % (AUTO) 6.8 %; NEUTROPHILS # (AUTO) 8.3 10^3/uL (1.5-6.6); NEUTROPHILS % (AUTO) 78.3 %; PLT - PLATELET COUNT 248 10^3/uL (130-450); RED CELL DISTRIBUTION WIDTH 13.9 % (12.0-15.0); WHITE BLOOD COUNT 10.6 x10^3/uL (4.8-10.8)
[2018-06-13 07:18] LABS: ALBUMIN 3.5 g/dL (3.2-5.5); BILIRUBIN,TOTAL 0.6 mg/dL (0.2-1.0); CALCIUM 9.1 mg/dL (8.5-10.3); CREATININE 0.8 mg/dL (0.6-1.2)
--- NOTE | 2018-06-13 07:39 | XRAY Report ---
Reason: shortness of breath, hypoxic Procedure Date: 06/13/2018 Accession Number: [id number] / [id number] Procedure: XR - Chest 1 View X-Ray CPT Code: 23824 FULL RESULT: EXAM: CHEST RADIOGRAPHY EXAM DATE: 06/13/2018 07:21 AM. CLINICAL HISTORY: Shortness of breath. Hypoxia. COMPARISON: 05/03/2018. TECHNIQUE: Semiupright AP view. FINDINGS: Lungs/Pleura: Tracheostomy, as before. Lung volumes low, as before. Mild bandlike atelectasis at the lateral left lung base, decreased. Azygos fissure on the right. No new airspace opacities or interstitial abnormality. No gross pneumothorax or gross pleural fluid. Mediastinum: Mild cardiomegaly, as before. Other: None. IMPRESSION: 1. Low lung volumes with decreased linear lateral left basilar atelectasis. 2. Mild cardiomegaly, as before. RADIA
--- NOTE | 2018-06-13 07:42 | ED Physician Documentation ---
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 58 male Pmhx HTN HLD [id number] insulin dependent, trach s/p brain aneurysm 2007 with vocal cord paralysis, morbid obesity, sleep apnea, home O2 dependent 3 L, bed bound per turn over BIBA for SOA was found hypoxic sats either 60s or 80s on his home O2 received duoneb en route labs and xray ordered by night shift supervisor pt states sick for 2-3 days hot, sweaty, new producitve cough, inc SOA, similar to prior pna uses his neb BID states does not have asthma or COPD states does not take prednsione at home states neb an route from EMS did not help denies NVD Review of Systems Constitutional: reports: Fever (subj), Sweats Cardiac: denies: Chest pain / pressure Respiratory: reports: Dyspnea, Cough GI: denies: Abdominal Pain, Nausea, Vomiting Neurologic: denies: Generalized weakness Immunocompromised: denies: Immunocompromised PD PAST MEDICAL HISTORY - Past Medical History Past Medical History: Yes Cardiovascular: Hypertension, High cholesterol, Atrial fibrillation Respiratory: COPD, Pneumonia, Shortness of breath, Sleep apnea, Other Neuro: Headaches, Peripheral neuropathy, Other Endocrine/Autoimmune: Type 2 diabetes GI: GERD FLOW MANAGER: None : Benign prostate hypertrophy, Incontinence, Nocturia, Frequency HEENT: None Psych: Depression, Anxiety, Eating disorder Musculoskeletal: Osteoarthritis, Osteoporosis, Hemiplegia, Fatigue, Chronic back pain Derm: None - Past Surgical History Past Surgical History: Yes General: Cholecystectomy HEENT: Tracheostomy - Present Medications Home Medications: Ambulatory Orders Medication Instructions Recorded Confirmed Insulin Glargine,Hum.rec.anlog 38 unit SUBQ BID 03/20/13 05/03/18 [Lantus Solostar] Lisinopril 10 mg PO BID 03/20/13 05/03/18 Lovastatin 40 mg PO QPM 03/20/13 05/03/18 Multivitamin [Multivitamins] 1 each PO DAILY 03/20/13 05/03/18 metFORMIN [Glucophage] 1,000 mg PO BIDWM 03/20/13 05/03/18 Aspirin 81 mg PO DAILY 10/04/16 05/03/18 Insulin Aspart [Novolog Flexpen] 20 unit SUBQ TIDWM MDD 90 UNITS 10/04/16 Gabapentin 200 mg PO QPM 03/11/17 05/03/18 Icosapent Ethyl [Vascepa] 2 gm PO BID 03/12/17 05/03/18 Sertraline HCl [Zoloft] 200 mg PO QPM 03/12/17 05/03/18 diltiaZEM CD [Cardizem Cd] 120 mg PO BID #60 capsule 03/14/17 05/03/18 Albuterol 3 ml INH BID PRN 05/03/18 05/03/18 Amiodarone HCl 200 mg PO DAILY 05/03/18 05/03/18 Baclofen 10 mg PO QID PRN 05/03/18 05/03/18 Bupropion HCl [Bupropion Xl] 300 mg PO DAILY 05/03/18 05/03/18 [place]-3 Fatty Acids/Fish Oil 1 gm PO BID 05/03/18 05/03/18 [[place]-3 Fish Oil 1,000 mg Sfgl] Oxycodone HCl 10 mg PO Q4HR PRN MDD 60MG 05/03/18 05/03/18 Amox/Clav 875/125 [Augmentin 1 tab PO BID #20 tablet 05/07/18 875/125] Budesonide [Pulmicort] 0.5 mg IH BID #60 neb 05/07/18 Furosemide [Lasix] 60 mg PO DAILY #90 tablet 05/07/18 Saccharomyces Boulardii [Florastor] 250 mg PO BID #40 capsule 05/07/18 Spironolactone [Aldactone] 25 mg PO DAILY #30 tablet 05/07/18 - Allergies Allergies/Adverse Reactions: Allergies Allergy/AdvReac Type Severity Reaction Status Date / Time niacin Allergy Severe Hives Verified 06/13/18 06:37 - Social History Does the pt smoke?: No Smoking Status: Never smoker Does the pt drink ETOH?: No Does the pt have substance abuse?: No - Immunizations Immunizations are current?: No Immunizations: TDAP >10years/unknown - POLST Patient has POLST: No POLST Status: Full Code PD ED PE NORMAL - Vitals Vital signs reviewed: Yes - General General: Alert and oriented X 3 - HEENT HEENT: PERRL - Neck Neck: Supple, no meningeal sign - Cardiac Cardiac: RRR - Respiratory Respiratory: Other (dec dany, coughs, req 6 L vs his usual 3) - Abdomen Abdomen: Soft, Non tender - Derm Derm: Normal color - Extremities Extremities: Other (dany symm edema, NT) - Neuro Neuro: Alert and oriented X 3 Results - Vitals Vitals: Vital Signs - 24 hr 06/13/18 06/13/18 06/13/18 06:34 07:35 08:15 Temperature 36.7 C Heart Rate 92 82 83 Respiratory 22 22 22 Rate Blood Pressure 124/69 131/70 H 145/81 H O2 Saturation 93 98 93 Oxygen O2 Source [Without Activity] trach blow by O2 Source tach collar - Labs Labs: Laboratory Tests 06/13/18 06/13/18 06/13/18 06:50 06:50 06:50 WBC 10.6 RBC 4.70 Hgb 13.5 L Hct 41.2 L MCV 87.6 MCH 28.7 MCHC 32.8 RDW 13.9 Plt Count 248 MPV 7.7 Neut # (Auto) 8.3 H Lymph # (Auto) 1.4 L [place] # (Auto) 0.7 Eos # (Auto) 0.1 Baso # (Auto) 0.1 Absolute Nucleated RBC 0.00 Nucleated RBC % 0.0 Sodium 135 Potassium 4.4 Chloride 90 L Carbon Dioxide 35 H Anion Gap 10.0 BUN 21 H Creatinine 0.8 Estimated GFR (MDRD) 99 Glucose 323 H Lactic Acid Calcium 9.1 Total Bilirubin 0.6 AST 39 ALT 41 Alkaline Phosphatase 73 Troponin I < 0.04 B-Natriuretic Peptide Total Protein 7.0 Albumin 3.5 Globulin 3.5 Albumin/Globulin Ratio 1.0 Lipase 26 06/13/18 06/13/18 06:50 06:50 WBC RBC Hgb Hct MCV MCH MCHC RDW Plt Count MPV Neut # (Auto) Lymph # (Auto) [place] # (Auto) Eos # (Auto) Baso # (Auto) Absolute Nucleated RBC Nucleated RBC % Sodium Potassium Chloride Carbon Dioxide Anion Gap BUN Creatinine Estimated GFR (MDRD) Glucose Lactic Acid 2.6 H Calcium Total Bilirubin AST ALT Alkaline Phosphatase Troponin I B-Natriuretic Peptide 21 Total Protein Albumin Globulin Albumin/Globulin Ratio Lipase - Rads (name of study) CXR Radiology: See rad report (poor isnp, cardiomegaly, LLL atelectasis vs infiltrate dec from last month) CTPA Radiology: See rad report (limited by body habitus but no PE seen, atelectasis LLL lingula, pneumonitis RUL) PD MEDICAL DECISION MAKING - ED course ED course: LLL infiltrate on CXR cannot determine if prior infiltrate resolving or a new one but his sx of subj fever cough and worsening hypoxia and are concerning for recureent pna lactate 2.6 - but not tachy or hypotensive and has cariomegaly and LE edema and some edema on CXR - after careful consideration gave antibiotics but not 30 cc/ kg of fluids - rocephin and since zmax interacts with amiodarone subbed doxy pt that pt is immobile PE is also a concern - gave lovenox and will see it pt can go to CT at his weight, VQ unliekly to be of use given baseline CXR paged hospitalist for admit at 0800 - Sepsis Event Vital Signs: Vital Signs - 24 hr 06/13/18 06/13/18 06/13/18 06:34 07:35 08:15 Temperature 36.7 C Heart Rate 92 82 83 Respiratory 22 22 22 Rate Blood Pressure 124/69 131/70 H 145/81 H O2 Saturation 93 98 93 Oxygen O2 Source [Without Activity] trach blow by O2 Source tach collar Departure - Departure Disposition: 66 [facility] DC/Xfer Clinical Impression: Hypoxemia Pneumonia Qualifiers: Pneumonia type: due to unspecified organism Laterality: right Lung location: upper lobe of lung Qualified Code(s): J18.1 - Lobar pneumonia, unspecified organism Discharge Date/Time: 06/13/18 10:25
[2018-06-13] MEDS ORDERED: ENOXAPARIN 100 MG/ML SYRINGE SUBQ STA (07:58)
[2018-06-13] MEDS ORDERED: DOXYCYCLINE INJ 100 MG in SODIUM CHLORIDE 0.9% MINIBAG 100 ML IV STA (08:00)
[2018-06-13] MEDS ORDERED: IOPAMIDOL-300 100 ML VIAL ONE (08:12)
--- NOTE | 2018-06-13 08:58 | HISTORY & PHYSICAL EXAMINATION ---
Chief Complaint - Chief Complaint Chief Complaint: hypoxia History of Present Illness - Admitted From Admitted From:: ED - History Obtained From Records Reviewed: yes History obtained from: chart review, patient Exam Limitations: none - History of Present Illness HPI Comment/Other: Bam Lane is an unfortunate 58-year old male with a past medical history of hypertension, hyperlipidemia, atrial fibrillation, chronic edema, type 2 DM-insulin dependent, chronic tracheostomy after a brain aneurysm in 2007 , vocal cord paralysis, morbid obesity, oxygen dependence, PAUL, bed bound, chronic wounds, and depression. Over the past 2 to 3 days, the patient the patient began to feel symptoms of shortness of breath, generalized weakness, and fatigue. He has a non-cuffed trach, and denies problems with swallowing or aspiration, although states that he has been sucking on red cough drops and has noticed that his disposable trach is stained with this when he takes it out to clean it. He believes to have had mild fever and chills, increased SOB, increased sputum production and generalized fatigue. He gets daily [employer] workers , and weekly nursing care. He has a home Oxygen saturation monitor and reports that his oxygen saturation was as low as 75%. He wears a trach mask at home for supplemental oxygen and has been having an increased cough with thick green sputum. Once arriving in the ED via EMS, he was found to have a normal WBC count of 10.6, mild anemia with an H/H of 13.5/41.2. An elevated carbon dioxide level of 35, and a normal troponin. Imaging shows a left lobe pneumonia. He denies SOB, chest pain, nausea, vomiting, confusion, or dizziness. He will be admitted to inpatient for further care and a swallowing evaluation for worrisome history of possible aspiration. 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: None : reports: Benign prostate hypertrophy, Retention, Incontinence, Nocturia, Frequency HEENT: reports: Chronic vision loss, Chronic sinusitis Psych: reports: Depression, Anxiety, Eating disorder Musculoskeletal: reports: Osteoarthritis, Osteoporosis, Hemiplegia, Fatigue, Chronic back pain Derm: reports: Rosacea MRSA Hx?: Yes - Past Surgical History General: reports: Cholecystectomy, Gastric surgery Ortho: reports: Other (ankle repair history) HEENT: reports: Tracheostomy - Family & Social History Family History: Mother: Alive and Well, Diabetes, Type 2, Hypertension, Mental Illness, Obesity, Father: , CVA/TIA, Sister: Alive and Well, , Brother: Alive and Well, , Cancer Family History Comment/Other: Mother is alive and in poor health with DM, obesity, CAD, depression. Father at age 48 after a CVA. The patient has 3 brothers and 2 sisters. He recently lost his sister after complications of Downs syndrome at age 59 years. The other sister is alive and well. He lost one brother at age 39 from lung cancer, and the other 2 brothers are alive and well. Living arrangement: At home Living Situation: With family Social History Notes: The patient lives independently with his mother, who is in poor physical condition. The patient is considered home bound and is seen for in-home visits by his PCP Jen Lindsay. He has a [facility] bed, and [employer] workers daily. 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 He is not on disability after having a traumatic event in 2007, which was a brain aneurysm leaving him with a chronic trach and chronic right sided weakness. He has no children and is not . He denies illicit drug use, or alcohol use. He admits to a tobacco dependence history from age [age]. He wishes to be a FULL code. - Substance History Use: Uses substance without health or social issues: NONE Abuse: Recurrent use of substance despite neg consequences: NONE Dependence: Experiences withdrawal or developed tolerances: NONE - POLST Patient has POLST: No POLST Status: Full Code Meds/Allgy - Home Medications Home Medications: Ambulatory Orders Medication Instructions Recorded Confirmed Insulin Glargine,Hum.rec.anlog 38 unit SUBQ BID 03/20/13 06/13/18 [Lantus Solostar] Lovastatin 40 mg PO QPM 03/20/13 06/13/18 metFORMIN [Glucophage] 1,000 mg PO BIDWM 03/20/13 06/13/18 Aspirin 81 mg PO DAILY 10/04/16 06/13/18 Insulin Aspart [Novolog Flexpen] 0 - 20 unit SUBQ TIDWM MDD 90 UNITS 10/04/16 Gabapentin 200 mg PO QPM 03/11/17 06/13/18 Icosapent Ethyl [Vascepa] 2 gm PO BID 03/12/17 06/13/18 Sertraline HCl [Zoloft] 200 mg PO DAILY 03/12/17 06/13/18 Albuterol 3 ml INH BID PRN 05/03/18 06/13/18 Amiodarone HCl 200 mg PO DAILY 05/03/18 06/13/18 Baclofen 10 mg PO QID PRN 05/03/18 06/13/18 Bupropion HCl [Bupropion Xl] 300 mg PO DAILY 05/03/18 06/13/18 Oxycodone HCl 10 mg PO Q5H PRN MDD 50 05/03/18 06/13/18 Budesonide [Pulmicort] 0.5 mg IH BID #60 neb 05/07/18 06/13/18 Furosemide [Lasix] 60 mg PO DAILY #90 tablet 05/07/18 06/13/18 Spironolactone [Aldactone] 25 mg PO DAILY #30 tablet 05/07/18 06/13/18 Diltiazem HCl [Diltiazem ER] 120 mg PO BID 06/13/18 06/13/18 Multivitamin [Theragran] 1 tab PO DAILY 06/13/18 06/13/18 Providence-3 Acid Ethyl Esters [Lovaza] 1 gm PO BID 06/13/18 06/13/18 - Allergies Allergies/Adverse Reactions: Allergies Allergy/AdvReac Type Severity Reaction Status Date / Time niacin Allergy Severe Hives Verified 06/13/18 06:37 Exam - Vital Signs Reviewed Vital Signs: Yes Vital Signs: Vital Signs x48h Temp Pulse Resp BP Pulse Ox 06/13/18 08:15 83 22 145/81 H 93 06/13/18 07:35 82 22 131/70 H 98 06/13/18 06:34 36.7 C 92 22 124/69 93 - Physical Exam General Appearance: positive: Alert, Moderate distress Eyes Bilateral: positive: Normal inspection, PERRL ENT: positive: ENT inspection nml, Pharyngeal erythema, Dry mucous membranes Neck: positive: Thyroid nml, Lymphadenopathy (R), Lymphadenopathy (L), Stiff neck, Other (chronic tracheostomy) Respiratory: positive: Chest non-tender, Rhonchi, Other (diminished breath sounds) Cardiovascular: positive: No gallop, Irregularly irregular, Tachycardia, Systolic murmur, Decreased pulse(s) Peripheral Pulses: positive: 1+ Abdomen: positive: Non-tender, Other (obese, soft) Back: positive: Nml inspection Skin: positive: No rash, Warm, Dry, Diaphoresis, Decubitus (improved, now stage I), Other (pale) Extremities: positive: Pedal edema (chronic generalized edema), Joint swelling Neurologic/Psychiatric: positive: Oriented x3, Weakness, Sensory loss, Slurred/ abnml speech (sluggish speech, slow to respond), Depressed mood/affect Reflexes: Bicep (R): 2+, Bicep (L): 2+ Conclusion/Plan - Problem List (1) Pneumonia Conclusion/Plan: Imaging on admission included a chest x-ray and a chest CT, which showed no pulmonary emboli, atelectasis at the left lung base, right upper lobe pneumonitis with patchy air trapping. The patient reports that at home, his oxygen saturation was ~75% on his usual amount of oxygen. He states that he has had a sore throat lately, so has been sucking on lozenges. He reports that his disposable inner trach cannula has been stained the color of the cough drops. I suspect that he is on max amounts of narcotics and becomes lethargic, thereby allowing for silent aspiration. Other evidence is on imaging where atelectasis was noted as his cough has been suppressed with the chronic narcotic use. He will be started on coverage for aspiration pneumonia. I have ordered a sputum sample. He will get gentle IV fluids, and blood pressure/diuretics will be held for at least the first 24 hours of stay. Qualifiers: Pneumonia type: aspiration pneumonia Laterality: right Lung location: upper lobe of lung (2) Super obesity Conclusion/Plan: The patient is noted to be 204.1kg and on imaging has a lap band. He lives with is super obese mother. The 2 of them have [employer] workers in their home. The patient has struggled with his weight, and has felt hopeless about obesity since his brain aneurysm in 2007. He has underlying depression and opioid dependence. He is immobile due to his weight, and his recent ankle fracture. He is on diuretic therapy. Plan: Recommend a weight reduction program as per PCP. (3) Tracheostomy dependence Conclusion/Plan: The patient has an un-cuffed XL, disposable, chronic tracheostomy for his vocal cord paralysis which occurred as a consequence of his brain aneurysm. He refuses to explore a cuffed version and states that this would not allow him to speak. He reports that he most recently had a sore throat at home, used lozenges, and noticed that his inner trach cannula was stained red after sucking on the lozenges. Plan: Suggest out patient ENT follow up in prevention of aspiration events. (4) Pressure ulcer of sacral region, unspecified stage Conclusion/Plan: The patient is known to have a chronic sacral ulcer that causes him discomfort. He admits to an improvement as he has recently obtained a different bed at home to help improve his chronic pressure ulcers. Nursing took a picture of this wound upon arrival from the ED. It is not open, and is noted to be a stage I. Plan: Continue Q2H turns, frequent nursing care and PT to evaluate. Qualifiers: Pressure injury stage: stage 3 Qualified Code(s): L89.153 - Pressure ulcer of sacral region, stage 3 (5) Chronic pain syndrome Conclusion/Plan: The patient has chronic joint pain for good reasons and the main reason is his super obesity. It has taken a toll on his joints, in particular his back, hips and knees. The patient is prescribed an assortment of medications, all of which cause sedation or lethargy and they include; Baclofen, gabapentin, and oxycodone. He has requested additional pain medications while hospitalized, but this is not ideal as we suspect aspiration induced by somnolence. Plan: Continue home meds and watch for over sedation. (6) Diabetes type 2, uncontrolled Conclusion/Plan: The patient admits to elevated blood glucose at home with values >300. He cannot relate any recent changes to this. He denies changes in diet or changes to his medications. Upon admission he was noted to have a glucose of 323 in his labs. He is prescribed Lantus, metformin, and aspart. He proves to be very advanced in his insulin resistance with dosing of his Lantus at an astonishing 38 units BID, and triple that amount at mealtimes of the Aspart. Metformin is on hold as hospital protocol. Plan: Daily labs, check a hemoglobin A1C, continue lantus, aspart, blood sugar checks and SSI with mealtime dosing. (7) Chronic atrial fibrillation Conclusion/Plan: The patient is prescribed amioderone, diltiazem at home for his chronic atrial fibrillation that he has had for several years. 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 Plan: continue medications and monitor on telemetry for at least 24 hours. 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 He denies suicidal ideation or thoughts of harming others. He is prescribed sertraline and bupropion at home and states that when he is not ill, his mood is improved. He states that living with his mother is the only thing he has as he lost his sister after complications of her downs syndrome. Plan: Continue medications and monitor for worsening mood. Qualifiers: Major depression recurrence: recurrent Active/Remission status: currently active Major depression episode severity: moderate Qualified Code(s): F33.1 - Major depressive disorder, recurrent, moderate - Lab Results Lab results reviewed: Yes Ernesto Bones: 06/16/18 05:10 06/16/18 05:10 - Diagnostic Imaging Results Diagnostic Imaging Results: positive: Final report reviewed - EKG Results EKG Interpreted Independently: Yes EKG Comparison: Unchanged from prior EKG Core Measures - Anticipated LOS I expect patient to be DC'd or transferred within 96 hours.: Yes - DVT/VTE - Prophylaxis VTE/DVT Device ordered at admit?: Yes VTE/DVT Prophylaxis med ordered at admit?: Yes - Stroke - Rehab Assessment Rehab services assessment to be ordered?: Yes - AMI - Statin at Admit Aspirin Prescribed on Admit: Yes
[2018-06-13] MEDS ORDERED: VANCOMYCIN PER PHARMACY 10 GM in SODIUM CHLORIDE 0.9% 250 ML IV STA (08:59)
[2018-06-13] MEDS ORDERED: LACTATED RINGERS IV STA (08:59)
[2018-06-13] MEDS ORDERED: CEFEPIME 2 GM in SODIUM CHLORIDE 0.9% MINIBAG 100 ML IV STA (08:59)
[2018-06-13] MEDS ORDERED: IOPAMIDOL-300 100 ML VIAL IVP ONE (09:45)
[2018-06-13 10:09] LABS: VBG BASE EXCESS 6.5 mmol/L (-2 - +2); VBG PCO2 75.8 mmHg (41-51); VBG PH 7.292 (7.31-7.41); VBG PO2 53.2 mmHg (25-47); VBG TOTAL CO2 38.1 mmol/L (24-29)
--- NOTE | 2018-06-13 10:17 | CT Report ---
Reason: hypoxia, bed bound Procedure Date: 06/13/2018 Accession Number: [id number] / [id number] Procedure: CT - Chest Angio (PE) CPT Code: FULL RESULT: EXAM: CT ANGIOGRAM CHEST EXAM DATE: 06/13/2018 09:37 AM. CLINICAL HISTORY: Hypoxia. Bedridden. COMPARISON: Radiograph today, CT angiogram chest 03/16/2017. TECHNIQUE: Routine helical imaging was performed through the chest in the pulmonary arterial phase. IV Contrast: ISOVUE 300 100mL. Reconstructions: Coronal 3-D MIP reconstructions.Sagittal and coronal. In accordance with CT protocol optimization, one or more of the following dose reduction techniques were utilized for this exam: automated exposure control, adjustment of mA and/or KV based on patient size, or use of iterative reconstructive technique. FINDINGS: Pulmonary Arteries: Diagnostic quality: Moderately degraded through the segmental arteries which appears to be related to large patient body habitus likely within body wall contacting the scanner detectors. No evidence for acute or chronic pulmonary emboli. Heart: Normal size. RV/LV is within normal limits. There is no interventricular septal bowing. There is no reflux of contrast material in the IVC. Lungs/Pleura: Low lung volumes. Moderate dependent consolidation in the basilar left lower lobe. Mild bandlike opacity suggesting atelectasis in the lingula. Moderate mosaic density pattern in both lungs. Mild patchy airspace opacity laterally in the posterior segment right upper lobe. No peripheral interstitial abnormality. No emphysema. Azygos fissure is noted on the right. Accounting for expiratory phase, central airways are unremarkable. Tracheostomy tube is present. No pleural fluid or pneumothorax. Mediastinum: No lymphadenopathy. Thyroid gland and esophagus are unremarkable. Thoracic Aorta: Minimal aortic arch calcification. No aneurysm or dissection. Upper Abdomen: Lap band is noted. Other: Flowing osteophyte formation anteriorly consistent with diffuse idiopathic skeletal hyperostosis in the mid to lower thoracic spine. IMPRESSION: 1. Image quality moderately degraded which appears to be related to patient body habitus. 2. No gross central pulmonary embolism. 3. Low lung volumes. Moderate dependent left basilar lung consolidation consistent with atelectasis. Mild bandlike opacity suggesting atelectasis in the lingula. Mosaic density pattern in the remainder of both lungs which may reflect patchy air-trapping, although there could be a component of patchy pneumonitis together late laterally in the right upper lobe. [facility]IA
[2018-06-13] MEDS: CEFEPIME 2 GM in SODIUM CHLORIDE 0.9% MINIBAG 100 ML IV SCH ×2 (11:43→18:44)
[2018-06-13] MEDS: POLYETHYLENE GLYCOL 3350 17 GM PACKET PO SCH (11:49)
[2018-06-13] MEDS ORDERED: VANCOMYCIN INJ 1 GM in SODIUM CHLORIDE 0.9% 250 ML IV SCH (12:00)
[2018-06-13] MEDS: SODIUM CHLORIDE FLUSH 0.9% 10 ML SYRINGE IVP SCH ×3 (12:51→23:42)
[2018-06-13] MEDS ORDERED: PERFLUTREN LIPID MICROSPHERES 1.65 MG/1.5 ML VIAL IVP ONE (13:04)
[2018-06-13] MEDS ORDERED: SODIUM CHLORIDE INHALATION 3 ML NEB ONE (13:33)
[2018-06-13] MEDS: oxyCODONE 5 MG TABLET PO PRN ×2 (16:45→23:59)
[2018-06-13] MEDS: BACLOFEN 10 MG TABLET PO PRN (16:45)
[2018-06-13] MEDS: INSULIN ASPART 300 UNIT/3 ML PEN SUBQ SCH ×3 (16:49→20:53)
[2018-06-13] MEDS: SODIUM CHLORIDE 0.9% 1,000 ML IV SCH ×2 (16:52→23:59)
[2018-06-13] MEDS: VANCOMYCIN INJ 1 GM in SODIUM CHLORIDE 0.9% 250 ML IV SCH (20:51)
[2018-06-13] MEDS: GABAPENTIN 100 MG CAPSULE PO SCH (20:52)
[2018-06-13] MEDS: diltiaZEM CD 120 MG CAPSULE PO SCH (20:53)
[2018-06-13] MEDS: INSULIN GLARGINE 300 UNIT/3 ML PEN SUBQ SCH (20:53)
[2018-06-13] MEDS ORDERED: LIDOCAINE 2% URO-JET 5 ML SYRINGE UR PRN (21:30)
[2018-06-13] MEDS: methylPREDNISolone SUCCINATE 40 MG/ML VIAL IVP SCH (22:18)
[2018-06-13] MEDS: SODIUM CHLORIDE FLUSH 0.9% 10 ML SYRINGE IVP PRN (22:18)
[2018-06-14] MEDS: CEFEPIME 2 GM in SODIUM CHLORIDE 0.9% MINIBAG 100 ML IV SCH ×3 (01:57→18:12)
[2018-06-14] MEDS: VANCOMYCIN INJ 1 GM in SODIUM CHLORIDE 0.9% 250 ML IV SCH ×4 (02:32→19:41)
[2018-06-14] MEDS: BACLOFEN 10 MG TABLET PO PRN ×3 (02:37→16:43)
[2018-06-14] MEDS: oxyCODONE 5 MG TABLET PO PRN ×4 (04:57→22:31)
[2018-06-14 05:18] LABS: ALBUMIN 3.5 g/dL (3.2-5.5); BILIRUBIN,TOTAL 0.8 mg/dL (0.2-1.0); CALCIUM 9.2 mg/dL (8.5-10.3); CREATININE 0.6 mg/dL (0.6-1.2); CRP - C-REACTIVE PROTEIN 2.2 mg/dL (0-1.0); TOTAL PROTEIN 6.9 g/dL (6.7-8.2)
[2018-06-14 05:24] LABS: BASOPHILS % (AUTO) 0.4 %; HGB - HEMOGLOBIN 14.1 g/dL (14.0-18.0); LYMPHOCYTES # (AUTO) 0.8 10^3/uL (1.5-3.5); LYMPHOCYTES % (AUTO) 7.1 %; MEAN CORPUSCULAR HEMOGLOBIN 28.9 pg (27.0-31.0); MEAN CORPUSCULAR HGB CONC 32.9 g/dL (32.0-36.0); MEAN CORPUSCULAR VOLUME 87.9 fL (80.0-94.0); MONOCYTES # (AUTO) 0.2 10^3/uL (0.0-1.0); MONOCYTES % (AUTO) 1.7 %; NEUTROPHILS # (AUTO) 9.9 10^3/uL (1.5-6.6); NEUTROPHILS % (AUTO) 90.8 %; PLT - PLATELET COUNT 247 10^3/uL (130-450); RED BLOOD COUNT 4.86 10^6/uL (4.70-6.10); RED CELL DISTRIBUTION WIDTH 13.8 % (12.0-15.0); WHITE BLOOD COUNT 10.9 x10^3/uL (4.8-10.8)
[2018-06-14 06:01] LABS: HEMOGLOBIN A1C 1.23 g/dL; HEMOGLOBIN A1C % 9.7 % (4.6-6.2)
[2018-06-14] MEDS: methylPREDNISolone SUCCINATE 40 MG/ML VIAL IVP SCH ×3 (06:35→21:06)
[2018-06-14] MEDS: SODIUM CHLORIDE FLUSH 0.9% 10 ML SYRINGE IVP PRN ×2 (06:37→21:06)
[2018-06-14 07:47] LABS: VANCOMYCIN,TROUGH 11.8 ug/mL (10.0-20.0)
[2018-06-14] MEDS: AMIODARONE 200 MG TABLET PO SCH (08:21)
[2018-06-14] MEDS: ASPIRIN CHEW 81 MG TABLET PO SCH (08:21)
[2018-06-14] MEDS: diltiaZEM CD 120 MG CAPSULE PO SCH ×2 (08:21→21:06)
[2018-06-14] MEDS: SERTRALINE 50 MG TABLET PO SCH (08:21)
[2018-06-14] MEDS: buPROPion XL 150 MG TABLET PO SCH (08:22)
[2018-06-14] MEDS: INSULIN ASPART 300 UNIT/3 ML PEN SUBQ SCH ×7 (08:25→21:08)
[2018-06-14] MEDS: INSULIN GLARGINE 300 UNIT/3 ML PEN SUBQ SCH ×2 (08:26→21:07)
[2018-06-14] MEDS: POLYETHYLENE GLYCOL 3350 17 GM PACKET PO SCH (08:29)
--- NOTE | 2018-06-14 12:07 | PROVIDER PROGRESS NOTE ---
Subjective - Prog Note Date Prog Note Date: 06/14/18 Prog Note Time: 12:07 - Subjective Pt reports feeling: Improved Subjective: Rai requests that his mother be called for a medical update, and for her to get in touch with his brother. He has no complaints other than being sent home too soon for treatment of this pneumonia. He denies any new symptoms such as nausea , vomiting, increased shortness of breath, chest pain, dizziness, or insomnia. Current Medications - Current Medications Current Medications: Active Medications Amiodarone HCl (Pacerone) 200 mg PO DAILY [facility], [facility]1983 Last Admin: 06/14/18 08:21 Dose: 200 mg Aspirin ([place] Aspirin) 81 mg PO DAILY [place] Last Admin: 06/14/18 08:21 Dose: 81 mg Baclofen (Lioresal) 10 mg PO QID PRN PRN Reason: Spasms Last Admin: 06/14/18 08:32 Dose: 10 mg Bupropion HCl (Wellbutrin Xl) 300 mg PO DAILY [facility], [facility] Last Admin: 06/14/18 08:22 Dose: 300 mg Diltiazem HCl (Cardizem Cd) 120 mg PO BID [facility], [facility]1983 Last Admin: 06/14/18 08:21 Dose: 120 mg Gabapentin (Neurontin) 200 mg PO QPM [facility], [facility] Last Admin: 06/13/18 20:52 Dose: 200 mg Cefepime HCl 2 gm/ Sodium (Chloride) 100 mls @ 200 mls/hr IV Q8H [facility], [facility] Last Infusion: 06/14/18 11:41 Dose: Infused Vancomycin HCl 1 gm/ Sodium (Chloride) 250 mls @ 167 mls/hr IV Q6H [facility] Last Infusion: 06/14/18 10:12 Dose: Infused Insulin Aspart (Novolog) 2 - 10 unit SUBQ 0800,1200,1700,2100 [facility]1983 PRN Reason: Protocol Insulin Aspart (Novolog) 25 unit SUBQ TIDWM [place] PRN Reason: Protocol Insulin Glargine (Lantus Solostar) 40 unit SUBQ BID [place] Lidocaine HCl (Xylocaine Uro-Jet 2%) 2.5 ml UR Q6H PRN PRN Reason: PAIN Methylprednisolone (Solu-Medrol (40mg Vial)) 40 mg IVP TID [facility] Last Admin: 06/14/18 06:35 Dose: 40 mg Oxycodone HCl (Roxicodone) 10 mg PO Q5H PRN PRN Reason: PAIN Last Admin: 06/14/18 04:57 Dose: 10 mg Polyethylene Glycol (Miralax) 17 gm PO DAILY [facility] Last Admin: 06/14/18 08:29 Dose: Not Given Sertraline HCl (Zoloft) 200 mg PO DAILY [facility] Last Admin: 06/14/18 08:21 Dose: 200 mg Sodium Chloride (Normal Saline Flush 0.9%) 10 ml IVP PRN PRN PRN Reason: NEEDED PER PROVIDER ORDERS Last Admin: 06/14/18 06:37 Dose: 10 ml Sodium Chloride (Normal Saline Flush 0.9%) 10 ml IVP 0100,0900,1700 [facility] Last Admin: 06/13/18 23:42 Dose: Not Given Insulin Glargine,Hum.rec.anlog [Lantus Solostar] 38 unit SUBQ BID 03/20/13 Lovastatin 40 mg PO QPM 03/20/13 metFORMIN [Glucophage] 1,000 mg PO BIDWM 03/20/13 Aspirin 81 mg PO DAILY 10/04/16 Insulin Aspart [Novolog Flexpen] 0 - 20 unit SUBQ TIDWM MDD 90 UNITS 10/04/16 Gabapentin 200 mg PO QPM 03/11/17 Icosapent Ethyl [Vascepa] 2 gm PO BID 03/12/17 Sertraline HCl [Zoloft] 200 mg PO DAILY 03/12/17 Albuterol 3 ml INH BID PRN 05/03/18 Amiodarone HCl 200 mg PO DAILY 05/03/18 Baclofen 10 mg PO QID PRN 05/03/18 Bupropion HCl [Bupropion Xl] 300 mg PO DAILY 05/03/18 Oxycodone HCl 10 mg PO Q5H PRN MDD 50 05/03/18 Diltiazem HCl [Diltiazem ER] 120 mg PO BID 06/13/18 Multivitamin [Theragran] 1 tab PO DAILY 06/13/18 [place]-3 Acid Ethyl Esters [Lovaza] 1 gm PO BID 06/13/18 Objective - Vital Signs/Intake & Output Reviewed Vital Signs: Yes Vital Signs: Vital Signs x48h Temp Pulse Resp BP Pulse Ox 06/14/18 11:31 36.8 C 87 21 162/103 H 93 06/14/18 08:14 36.6 C 81 19 154/92 H 91 L 06/14/18 04:57 37.0 C 84 18 156/90 H 91 L Intake & Output: Intake & Output 06/11/18 06/12/18 06/13/18 06/14/18 23:59 23:59 23:59 23:59 Intake Total 2369.053 1780.000 Output Total 4200 3400 Balance -1830.947 -1620.000 - Objective General Appearance: positive: No acute distress, Alert Eyes Bilateral: positive: Normal inspection, PERRL Eyes: OU Conjunctivae pale ENT: positive: ENT inspection nml, Pharynx nml, Dry mucous membranes Neck: positive: Thyroid nml, No JVD, Other (chronic trach without evidence of skin irritation.) Respiratory: positive: Chest non-tender, No respiratory distress, Rhonchi Cardiovascular: positive: No gallop, Irregularly irregular, Systolic murmur, Decreased pulse(s) Peripheral Pulses: 1+ Radial (R), 1+ Radial (L) Abdomen: positive: Non-tender, Nml bowel sounds, Other (obese, soft) Back: positive: Nml inspection Skin: positive: No rash, Warm, Dry, Other (pale) Extremities: positive: Pedal edema, Joint swelling, Other (BLE with tenderness, limited ROM, and peripheral neuropathy causing lack of sensation.) Neurologic/Psychiatric: positive: Oriented x3, Weakness, Sensory loss, Depressed mood/affect Reflexes: Bicep (R): 2+, Bicep (L): 2+ - Lab Results Fish Bones: 06/16/18 05:10 06/16/18 05:10 Other Labs: Lab Results x24hrs 06/14/18 06/14/18 06/14/18 Range/Units 07:29 04:45 04:45 WBC (4.8-10.8) x10^3/uL RBC (4.70-6.10) 10^6/uL Hgb (14.0-18.0) g/dL Hct (42.0-52.0) % MCV (80.0-94.0) fL MCH (27.0-31.0) pg MCHC (32.0-36.0) g/dL RDW (12.0-15.0) % Plt Count (130-450) 10^3/uL MPV (7.4-11.4) fL Neut # (Auto) (1.5-6.6) 10^3/uL Lymph # (Auto) (1.5-3.5) 10^3/uL [place] # (Auto) (0.0-1.0) 10^3/uL Eos # (Auto) (0.0-0.7) 10^3/uL Baso # (Auto) (0.0-0.1) 10^3/uL Absolute Nucleated RBC x10^3/uL Nucleated RBC % /100WBC ESR (0-20) mm/Hr Sodium (135-145) mmol/L Potassium (3.5-5.0) mmol/L Chloride (101-111) mmol/L Carbon Dioxide (21-32) mmol/L Anion Gap (6-13) BUN (6-20) mg/dL Creatinine (0.6-1.2) mg/dL Estimated GFR (MDRD) (>89) Glucose (70-100) mg/dL Glycated Hemoglobin (4.6-6.2) % Estim Average Glucose (70-100) Lactic Acid 1.1 (0.5-2.2) mmol/L Calcium (8.5-10.3) mg/dL Total Bilirubin (0.2-1.0) mg/dL AST (10-42) IU/L ALT (10-60) IU/L Alkaline Phosphatase (42-121) IU/L C-Reactive Protein (0-1.0) mg/dL B-Natriuretic Peptide 41 (5-100) pg/mL Total Protein (6.7-8.2) g/dL Albumin (3.2-5.5) g/dL Globulin (2.1-4.2) g/dL Albumin/Globulin Ratio (1.0-2.2) Last Dose Date UNKNOWN Last Dose Time UNKNOWN Vancomycin Trough 11.8 (10.0-20.0) ug/mL 06/14/18 06/14/18 06/14/18 Range/Units 04:45 04:45 04:45 WBC 10.9 H (4.8-10.8) x10^3/uL RBC 4.86 (4.70-6.10) 10^6/uL Hgb 14.1 (14.0-18.0) g/dL Hct 42.7 (42.0-52.0) % MCV 87.9 (80.0-94.0) fL MCH 28.9 (27.0-31.0) pg MCHC 32.9 (32.0-36.0) g/dL RDW 13.8 (12.0-15.0) % Plt Count 247 (130-450) 10^3/uL MPV 8.0 (7.4-11.4) fL Neut # (Auto) 9.9 H (1.5-6.6) 10^3/uL Lymph # (Auto) 0.8 L (1.5-3.5) 10^3/uL [place] # (Auto) 0.2 (0.0-1.0) 10^3/uL Eos # (Auto) 0.0 (0.0-0.7) 10^3/uL Baso # (Auto) 0.0 (0.0-0.1) 10^3/uL Absolute Nucleated RBC 0.01 x10^3/uL Nucleated RBC % 0.1 /100WBC ESR (0-20) mm/Hr Sodium 136 (135-145) mmol/L Potassium 4.9 (3.5-5.0) mmol/L Chloride 92 L (101-111) mmol/L Carbon Dioxide 37 H (21-32) mmol/L Anion Gap 7.0 (6-13) BUN 18 (6-20) mg/dL Creatinine 0.6 (0.6-1.2) mg/dL Estimated GFR (MDRD) 138 (>89) Glucose 336 H (70-100) mg/dL Glycated Hemoglobin 9.7 H (4.6-6.2) % Estim Average Glucose 232 H (70-100) Lactic Acid (0.5-2.2) mmol/L Calcium 9.2 (8.5-10.3) mg/dL Total Bilirubin 0.8 (0.2-1.0) mg/dL AST 28 (10-42) IU/L ALT 39 (10-60) IU/L Alkaline Phosphatase 80 (42-121) IU/L C-Reactive Protein 2.2 H (0-1.0) mg/dL B-Natriuretic Peptide (5-100) pg/mL Total Protein 6.9 (6.7-8.2) g/dL Albumin 3.5 (3.2-5.5) g/dL Globulin 3.4 (2.1-4.2) g/dL Albumin/Globulin Ratio 1.0 (1.0-2.2) Last Dose Date Last Dose Time Vancomycin Trough (10.0-20.0) ug/mL 06/14/18 Range/Units 04:45 WBC (4.8-10.8) x10^3/uL RBC (4.70-6.10) 10^6/uL Hgb (14.0-18.0) g/dL Hct (42.0-52.0) % MCV (80.0-94.0) fL MCH (27.0-31.0) pg MCHC (32.0-36.0) g/dL RDW (12.0-15.0) % Plt Count (130-450) 10^3/uL MPV (7.4-11.4) fL Neut # (Auto) (1.5-6.6) 10^3/uL Lymph # (Auto) (1.5-3.5) 10^3/uL [place] # (Auto) (0.0-1.0) 10^3/uL Eos # (Auto) (0.0-0.7) 10^3/uL Baso # (Auto) (0.0-0.1) 10^3/uL Absolute Nucleated RBC x10^3/uL Nucleated RBC % /100WBC ESR 11 (0-20) mm/Hr Sodium (135-145) mmol/L Potassium (3.5-5.0) mmol/L Chloride (101-111) mmol/L Carbon Dioxide (21-32) mmol/L Anion Gap (6-13) BUN (6-20) mg/dL Creatinine (0.6-1.2) mg/dL Estimated GFR (MDRD) (>89) Glucose (70-100) mg/dL Glycated Hemoglobin (4.6-6.2) % Estim Average Glucose (70-100) Lactic Acid (0.5-2.2) mmol/L Calcium (8.5-10.3) mg/dL Total Bilirubin (0.2-1.0) mg/dL AST (10-42) IU/L ALT (10-60) IU/L Alkaline Phosphatase (42-121) IU/L C-Reactive Protein (0-1.0) mg/dL B-Natriuretic Peptide (5-100) pg/mL Total Protein (6.7-8.2) g/dL Albumin (3.2-5.5) g/dL Globulin (2.1-4.2) g/dL Albumin/Globulin Ratio (1.0-2.2) Last Dose Date Last Dose Time Vancomycin Trough (10.0-20.0) ug/mL ABX Reporting Has patient been on IV antibiotics over the past 48 hours?: Yes Assessment/Plan - Problem List (1) Pneumonia Impression: Imaging on admission included a chest x-ray and a chest CT, which showed no pulmonary emboli, atelectasis at the left lung base, right upper lobe pneumonitis with patchy air trapping. The patient reports that at home, his oxygen saturation was ~75% on his usual amount of oxygen. He states that he has had a sore throat lately, so has been sucking on lozenges. He reports that his disposable inner trach cannula has been stained the color of the cough drops. I suspect that he is on max amounts of narcotics and becomes lethargic, thereby allowing for silent aspiration. Other evidence of acute pneumonia is on imaging where atelectasis was noted as his cough has been suppressed with the chronic narcotic use. He continues on IV vanco and IV Cefepime to cover aspiration pneumonia. A sputum sample was collected and is still pending. His IV fluids have been slowed down and blood pressure/diuretics remain on hold. He has been afebrile overnight. Plan: Continue to monitor and await culture results. Qualifiers: Pneumonia type: aspiration pneumonia Laterality: right Lung location: upper lobe of lung (2) Super obesity Impression: The patient's weight is now increased and is at 211 kg and on imaging has a lap band. He lives with is super obese mother. The 2 of them have [employer] workers in their home. The patient has struggled with his weight, and has felt hopeless about obesity since his brain aneurysm in 2007. He has underlying depression and chronic pain. He is immobile due to his weight, and his recent ankle fracture. He is on diuretic therapy, so I suspect that after these are resumed, his weight may increase. He states that when he is at home and has his crutch, he is able to pivot to his wheel chair. Plan: Recommend a weight reduction program as per PCP. 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 He refuses to explore a cuffed version and states that this would not allow him to speak. He reports that he most recently had a sore throat at home, used lozenges, and noticed that his inner trach cannula was stained red after sucking on the lozenges. Plan: Suggest out patient ENT follow up in prevention of aspiration events. (4) Pressure ulcer of sacral region, unspecified stage Impression: The patient is known to have a chronic sacral ulcer that causes him discomfort. He admits to an improvement as he has recently obtained a different bed at home to help improve his chronic pressure ulcers. Nursing took a picture of this wound upon arrival from the ED. It is not open, and is noted to be a stage I. Plan: Continue Q2H turns, frequent nursing care and PT to evaluate. Qualifiers: Pressure injury stage: stage 1 Qualified Code(s): L89.151 - Pressure ulcer of sacral region, stage 1 (5) Chronic pain syndrome Impression: The patient has chronic joint pain for good reasons and the main reason is his super obesity. His size has taken a toll on his joints, in particular his back , hips and knees. The patient is prescribed an assortment of medications, all of which cause sedation or lethargy and they include; Baclofen, gabapentin, and oxycodone. He has requested additional pain medications while hospitalized upon admission, but this is not ideal as we suspect aspiration induced by somnolence. He notes to have fair control of his pain today upon exam. Plan: Continue home meds and watch for over sedation. (6) Diabetes type 2, uncontrolled Impression: The patient admits to elevated blood glucose at home with values >300. He cannot relate any recent changes to this. He denies changes in diet or changes to his medications. Upon admission he was noted to have a glucose of 323 in his labs. He is prescribed Lantus, metformin, and aspart. He proves to be very advanced in his insulin resistance with dosing of his Lantus at an astonishing 38 units BID, and triple that amount at mealtimes of the Aspart. Metformin is on hold as hospital protocol. Plan: Daily labs, check a hemoglobin A1C, continue lantus, aspart, blood sugar checks and SSI with mealtime dosing. (7) Chronic atrial fibrillation Impression: The patient is prescribed amioderone, diltiazem at home for his chronic atrial fibrillation that he has had for several years. 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 Vital sign charting indicate rates in the 80's. The patient denies palpitations or chest tightness. Telemetry is now discontinued. Plan: continue medications and monitor vital signs. 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 He denies suicidal ideation or thoughts of harming others. He is prescribed sertraline and bupropion at home and states that when he is not ill, his mood is improved. He states that living with his mother is the only thing he has as he lost his sister after complications of her downs syndrome. Plan: Continue medications and monitor for worsening mood. Qualifiers: Major depression recurrence: recurrent Active/Remission status: currently active Major depression episode severity: moderate Qualified Code(s): F33.1 - Major depressive disorder, recurrent, moderate
[2018-06-14] MEDS: SODIUM CHLORIDE FLUSH 0.9% 10 ML SYRINGE IVP SCH ×2 (13:47→17:17)
[2018-06-14] MEDS ORDERED: INSULIN ASPART 300 UNIT/3 ML PEN SUBQ SCH ×2 (17:12→21:11)
[2018-06-14] MEDS ORDERED: INSULIN ASPART 300 UNIT/3 ML PEN SUBQ ONE (20:53)
[2018-06-14] MEDS: GABAPENTIN 100 MG CAPSULE PO SCH (21:06)
[2018-06-15] MEDS: SODIUM CHLORIDE FLUSH 0.9% 10 ML SYRINGE IVP SCH ×3 (01:13→18:55)
[2018-06-15] MEDS: VANCOMYCIN INJ 1 GM in SODIUM CHLORIDE 0.9% 250 ML IV SCH ×4 (01:54→19:53)
[2018-06-15] MEDS: CEFEPIME 2 GM in SODIUM CHLORIDE 0.9% MINIBAG 100 ML IV SCH ×4 (03:12→19:13)
[2018-06-15] MEDS: BACLOFEN 10 MG TABLET PO PRN ×3 (04:15→17:32)
[2018-06-15] MEDS: oxyCODONE 5 MG TABLET PO PRN ×4 (04:15→19:14)
[2018-06-15] MEDS: methylPREDNISolone SUCCINATE 40 MG/ML VIAL IVP SCH ×2 (05:08→21:00)
[2018-06-15] MEDS: SODIUM CHLORIDE FLUSH 0.9% 10 ML SYRINGE IVP PRN (05:08)
[2018-06-15 05:35] LABS: BASOPHILS % (AUTO) 0.2 %; HGB - HEMOGLOBIN 13.7 g/dL (14.0-18.0); LYMPHOCYTES # (AUTO) 1.1 10^3/uL (1.5-3.5); MEAN CORPUSCULAR HEMOGLOBIN 28.5 pg (27.0-31.0); MEAN CORPUSCULAR VOLUME 86.3 fL (80.0-94.0); MONOCYTES # (AUTO) 0.5 10^3/uL (0.0-1.0); MONOCYTES % (AUTO) 4.4 %; NEUTROPHILS # (AUTO) 10.7 10^3/uL (1.5-6.6); NEUTROPHILS % (AUTO) 86.4 %; PLT - PLATELET COUNT 256 10^3/uL (130-450); RED BLOOD COUNT 4.79 10^6/uL (4.70-6.10); RED CELL DISTRIBUTION WIDTH 13.8 % (12.0-15.0); WHITE BLOOD COUNT 12.3 x10^3/uL (4.8-10.8)
[2018-06-15 05:47] LABS: ALBUMIN 3.3 g/dL (3.2-5.5); BILIRUBIN,TOTAL 0.8 mg/dL (0.2-1.0); CALCIUM 9.1 mg/dL (8.5-10.3); CREATININE 0.8 mg/dL (0.6-1.2); CRP - C-REACTIVE PROTEIN 1.9 mg/dL (0-1.0); TOTAL PROTEIN 6.6 g/dL (6.7-8.2)
[2018-06-15] MEDS: AMIODARONE 200 MG TABLET PO SCH (08:28)
[2018-06-15] MEDS: buPROPion XL 150 MG TABLET PO SCH (08:28)
[2018-06-15] MEDS: SERTRALINE 50 MG TABLET PO SCH (08:28)
[2018-06-15] MEDS: diltiaZEM CD 120 MG CAPSULE PO SCH ×2 (08:28→20:59)
[2018-06-15] MEDS: ASPIRIN CHEW 81 MG TABLET PO SCH (08:28)
[2018-06-15] MEDS: INSULIN GLARGINE 300 UNIT/3 ML PEN SUBQ SCH ×2 (08:29→21:01)
[2018-06-15] MEDS: INSULIN ASPART 300 UNIT/3 ML PEN SUBQ SCH ×7 (08:29→21:01)
[2018-06-15] MEDS: POLYETHYLENE GLYCOL 3350 17 GM PACKET PO SCH (08:40)
[2018-06-15] MEDS ORDERED: SODIUM CHLORIDE 0.9% 1,000 ML IV ONE (18:57)
[2018-06-15] MEDS: GABAPENTIN 100 MG CAPSULE PO SCH (20:58)
--- NOTE | 2018-06-15 23:52 | PROVIDER PROGRESS NOTE ---
Subjective - Prog Note Date Prog Note Date: 06/15/18 Prog Note Time: 08:00 - Subjective Pt reports feeling: Improved Subjective: Rai has no complaints. He denies any new symptoms and believes that his breathing is easier. He denies increased sputum production, nausea, vomiting, anorexia, or chest pain. Current Medications - Current Medications Current Medications: Active Medications Amiodarone HCl (Pacerone) 200 mg PO DAILY [facility] Last Admin: 06/15/18 08:28 Dose: 200 mg Aspirin ([place] Aspirin) 81 mg PO DAILY [facility] Last Admin: 06/15/18 08:28 Dose: 81 mg Baclofen (Lioresal) 10 mg PO QID PRN PRN Reason: Spasms Last Admin: 06/15/18 17:32 Dose: 10 mg Bupropion HCl (Wellbutrin Xl) 300 mg PO DAILY [facility] Last Admin: 06/15/18 08:28 Dose: 300 mg Diltiazem HCl (Cardizem Cd) 120 mg PO BID [facility] Last Admin: 06/15/18 20:59 Dose: 120 mg Gabapentin (Neurontin) 200 mg PO QPM [facility] Last Admin: 06/15/18 20:58 Dose: 200 mg Cefepime HCl 2 gm/ Sodium (Chloride) 100 mls @ 200 mls/hr IV Q8H [facility] Last Infusion: 06/15/18 19:47 Dose: Infused Vancomycin HCl 1 gm/ Sodium (Chloride) 250 mls @ 167 mls/hr IV Q6H [facility] Last Infusion: 06/15/18 21:29 Dose: Infused Insulin Aspart (Novolog) 3 - 11 unit SUBQ 0800,1200,1700,2100 [facility] PRN Reason: Protocol Last Admin: 06/15/18 21:01 Dose: 7 unit Insulin Aspart (Novolog) 30 unit SUBQ TIDWM [facility] PRN Reason: Protocol Last Admin: 06/15/18 17:29 Dose: 30 unit Insulin Glargine (Lantus Solostar) 45 unit SUBQ BID [facility] Last Admin: 06/15/18 21:01 Dose: 45 unit Lidocaine HCl (Xylocaine Uro-Jet 2%) 2.5 ml UR Q6H PRN PRN Reason: PAIN Methylprednisolone (Solu-Medrol (40mg Vial)) 40 mg IVP BID [facility] Last Admin: 06/15/18 21:00 Dose: 40 mg Oxycodone HCl (Roxicodone) 10 mg PO Q5H PRN PRN Reason: PAIN Last Admin: 06/15/18 19:14 Dose: 10 mg Polyethylene Glycol (Miralax) 17 gm PO DAILY [facility] Last Admin: 06/15/18 08:40 Dose: Not Given Sertraline HCl (Zoloft) 200 mg PO DAILY [facility] Last Admin: 06/15/18 08:28 Dose: 200 mg Sodium Chloride (Normal Saline Flush 0.9%) 10 ml IVP PRN PRN PRN Reason: NEEDED PER PROVIDER ORDERS Last Admin: 06/15/18 05:08 Dose: 10 ml Sodium Chloride (Normal Saline Flush 0.9%) 10 ml IVP 0100,0900,1700 [facility] Last Admin: 06/15/18 18:55 Dose: Not Given Insulin Glargine,Hum.rec.anlog [Lantus Solostar] 38 unit SUBQ BID 03/20/13 Lovastatin 40 mg PO QPM 03/20/13 metFORMIN [Glucophage] 1,000 mg PO BIDWM 03/20/13 Aspirin 81 mg PO DAILY 10/04/16 Insulin Aspart [Novolog Flexpen] 0 - 20 unit SUBQ TIDWM [facility] 90 UNITS 10/04/16 Gabapentin 200 mg PO QPM 03/11/17 Icosapent Ethyl [Vascepa] 2 gm PO BID 03/12/17 Sertraline HCl [Zoloft] 200 mg PO DAILY 03/12/17 Albuterol 3 ml INH BID PRN 05/03/18 Amiodarone HCl 200 mg PO DAILY 05/03/18 Baclofen 10 mg PO QID PRN 05/03/18 Bupropion HCl [Bupropion Xl] 300 mg PO DAILY 05/03/18 Oxycodone HCl 10 mg PO Q5H PRN MDD 50 05/03/18 Diltiazem HCl [Diltiazem ER] 120 mg PO BID 06/13/18 Multivitamin [Theragran] 1 tab PO DAILY 06/13/18 [place]-3 Acid Ethyl Esters [Lovaza] 1 gm PO BID 06/13/18 Objective - Vital Signs/Intake & Output Reviewed Vital Signs: Yes Vital Signs: Vital Signs x48h Temp Pulse Resp BP Pulse Ox 06/15/18 19:24 36.9 C 87 22 165/96 H 95 Intake & Output: Intake & Output 06/12/18 06/13/18 06/14/18 06/15/18 23:59 23:59 23:59 23:59 Intake Total 2369.053 4240.000 3725 Output Total 4208 3105 1882 Balance -2630.947 -3310.000 -5050 - Objective General Appearance: positive: No acute distress, Alert Eyes Bilateral: positive: Normal inspection, PERRL Eyes: OU Conjunctivae pale ENT: positive: ENT inspection nml, Pharyngeal erythema, Dry mucous membranes Neck: positive: Thyroid nml, No JVD, Lymphadenopathy (R), Lymphadenopathy (L), Stiff neck, Other (chronic trach without s/s of abnormalities) Respiratory: positive: Chest non-tender, Rhonchi Cardiovascular: positive: No gallop, Irregularly irregular, Systolic murmur, Decreased pulse(s) Peripheral Pulses: 1+ Radial (R), 1+ Radial (L) Abdomen: positive: Non-tender, Nml bowel sounds, Other (obese, whale like, soft) Back: positive: Nml inspection Skin: positive: No rash, Warm, Dry, Diaphoresis (at times), Other (pale) Extremities: positive: Pedal edema (non-ambulatory), Joint swelling Neurologic/Psychiatric: positive: Oriented x3, CN's nml (2-12), Motor nml, Sensation nml, Weakness, Slurred/abnml speech, Depressed mood/affect, Other ( baseline STM loss, poor historian at times.) Reflexes: Bicep (R): 2+, Bicep (L): 2+ - Lab Results Fish Bones: 06/16/18 05:10 06/16/18 05:10 Other Labs: Lab Results x24hrs 06/15/18 06/15/18 06/15/18 Range/Units 20:32 16:35 11:26 WBC (4.8-10.8) x10^3/uL RBC (4.70-6.10) 10^6/uL Hgb (14.0-18.0) g/dL Hct (42.0-52.0) % MCV (80.0-94.0) fL MCH (27.0-31.0) pg MCHC (32.0-36.0) g/dL RDW (12.0-15.0) % Plt Count (130-450) 10^3/uL MPV (7.4-11.4) fL Neut # (Auto) (1.5-6.6) 10^3/uL Lymph # (Auto) (1.5-3.5) 10^3/uL [place] # (Auto) (0.0-1.0) 10^3/uL Eos # (Auto) (0.0-0.7) 10^3/uL Baso # (Auto) (0.0-0.1) 10^3/uL Absolute Nucleated RBC x10^3/uL Nucleated RBC % /100WBC ESR (0-20) mm/Hr Sodium (135-145) mmol/L Potassium (3.5-5.0) mmol/L Chloride (101-111) mmol/L Carbon Dioxide (21-32) mmol/L Anion Gap (6-13) BUN (6-20) mg/dL Creatinine (0.6-1.2) mg/dL Estimated GFR (MDRD) (>89) Glucose (70-100) mg/dL POC Whole Bld Glucose 250 H 328 H 349 H (70 - 100) mg/dL Lactic Acid (0.5-2.2) mmol/L Calcium (8.5-10.3) mg/dL Total Bilirubin (0.2-1.0) mg/dL AST (10-42) IU/L ALT (10-60) IU/L Alkaline Phosphatase (42-121) IU/L C-Reactive Protein (0-1.0) mg/dL B-Natriuretic Peptide (5-100) pg/mL Total Protein (6.7-8.2) g/dL Albumin (3.2-5.5) g/dL Globulin (2.1-4.2) g/dL Albumin/Globulin Ratio (1.0-2.2) 06/15/18 06/15/18 06/15/18 Range/Units 07:40 05:05 05:05 WBC (4.8-10.8) x10^3/uL RBC (4.70-6.10) 10^6/uL Hgb (14.0-18.0) g/dL Hct (42.0-52.0) % MCV (80.0-94.0) fL MCH (27.0-31.0) pg MCHC (32.0-36.0) g/dL RDW (12.0-15.0) % Plt Count (130-450) 10^3/uL MPV (7.4-11.4) fL Neut # (Auto) (1.5-6.6) 10^3/uL Lymph # (Auto) (1.5-3.5) 10^3/uL [place] # (Auto) (0.0-1.0) 10^3/uL Eos # (Auto) (0.0-0.7) 10^3/uL Baso # (Auto) (0.0-0.1) 10^3/uL Absolute Nucleated RBC x10^3/uL Nucleated RBC % /100WBC ESR (0-20) mm/Hr Sodium (135-145) mmol/L Potassium (3.5-5.0) mmol/L Chloride (101-111) mmol/L Carbon Dioxide (21-32) mmol/L Anion Gap (6-13) BUN (6-20) mg/dL Creatinine (0.6-1.2) mg/dL Estimated GFR (MDRD) (>89) Glucose (70-100) mg/dL POC Whole Bld Glucose 342 H (70 - 100) mg/dL Lactic Acid 1.1 (0.5-2.2) mmol/L Calcium (8.5-10.3) mg/dL Total Bilirubin (0.2-1.0) mg/dL AST (10-42) IU/L ALT (10-60) IU/L Alkaline Phosphatase (42-121) IU/L C-Reactive Protein (0-1.0) mg/dL B-Natriuretic Peptide 103 H (5-100) pg/mL Total Protein (6.7-8.2) g/dL Albumin (3.2-5.5) g/dL Globulin (2.1-4.2) g/dL Albumin/Globulin Ratio (1.0-2.2) 06/15/18 06/15/18 06/15/18 Range/Units 05:05 05:05 05:05 WBC 12.3 H (4.8-10.8) x10^3/uL RBC 4.79 (4.70-6.10) 10^6/uL Hgb 13.7 L (14.0-18.0) g/dL Hct 41.4 L (42.0-52.0) % MCV 86.3 (80.0-94.0) fL MCH 28.5 (27.0-31.0) pg MCHC 33.0 (32.0-36.0) g/dL RDW 13.8 (12.0-15.0) % Plt Count 256 (130-450) 10^3/uL MPV 8.0 (7.4-11.4) fL Neut # (Auto) 10.7 H (1.5-6.6) 10^3/uL Lymph # (Auto) 1.1 L (1.5-3.5) 10^3/uL [place] # (Auto) 0.5 (0.0-1.0) 10^3/uL Eos # (Auto) 0.0 (0.0-0.7) 10^3/uL Baso # (Auto) 0.0 (0.0-0.1) 10^3/uL Absolute Nucleated RBC 0.00 x10^3/uL Nucleated RBC % 0.0 /100WBC ESR 13 (0-20) mm/Hr Sodium 132 L (135-145) mmol/L Potassium 4.4 (3.5-5.0) mmol/L Chloride 91 L (101-111) mmol/L Carbon Dioxide 34 H (21-32) mmol/L Anion Gap 7.0 (6-13) BUN 19 (6-20) mg/dL Creatinine 0.8 (0.6-1.2) mg/dL Estimated GFR (MDRD) 99 (>89) Glucose 334 H (70-100) mg/dL POC Whole Bld Glucose (70 - 100) mg/dL Lactic Acid (0.5-2.2) mmol/L Calcium 9.1 (8.5-10.3) mg/dL Total Bilirubin 0.8 (0.2-1.0) mg/dL AST 27 (10-42) IU/L ALT 42 (10-60) IU/L Alkaline Phosphatase 74 (42-121) IU/L C-Reactive Protein 1.9 H (0-1.0) mg/dL B-Natriuretic Peptide (5-100) pg/mL Total Protein 6.6 L (6.7-8.2) g/dL Albumin 3.3 (3.2-5.5) g/dL Globulin 3.3 (2.1-4.2) g/dL Albumin/Globulin Ratio 1.0 (1.0-2.2) 06/14/18 06/14/18 06/14/18 Range/Units 16:38 11:29 07:34 WBC (4.8-10.8) x10^3/uL RBC (4.70-6.10) 10^6/uL Hgb (14.0-18.0) g/dL Hct (42.0-52.0) % MCV (80.0-94.0) fL MCH (27.0-31.0) pg MCHC (32.0-36.0) g/dL RDW (12.0-15.0) % Plt Count (130-450) 10^3/uL MPV (7.4-11.4) fL Neut # (Auto) (1.5-6.6) 10^3/uL Lymph # (Auto) (1.5-3.5) 10^3/uL [place] # (Auto) (0.0-1.0) 10^3/uL Eos # (Auto) (0.0-0.7) 10^3/uL Baso # (Auto) (0.0-0.1) 10^3/uL Absolute Nucleated RBC x10^3/uL Nucleated RBC % /100WBC ESR (0-20) mm/Hr Sodium (135-145) mmol/L Potassium (3.5-5.0) mmol/L Chloride (101-111) mmol/L Carbon Dioxide (21-32) mmol/L Anion Gap (6-13) BUN (6-20) mg/dL Creatinine (0.6-1.2) mg/dL Estimated GFR (MDRD) (>89) Glucose (70-100) mg/dL POC Whole Bld Glucose 386 H 370 H 342 H (70 - 100) mg/dL Lactic Acid (0.5-2.2) mmol/L Calcium (8.5-10.3) mg/dL Total Bilirubin (0.2-1.0) mg/dL AST (10-42) IU/L ALT (10-60) IU/L Alkaline Phosphatase (42-121) IU/L C-Reactive Protein (0-1.0) mg/dL B-Natriuretic Peptide (5-100) pg/mL Total Protein (6.7-8.2) g/dL Albumin (3.2-5.5) g/dL Globulin (2.1-4.2) g/dL Albumin/Globulin Ratio (1.0-2.2) 06/13/18 06/13/18 Range/Units 20:27 16:50 WBC (4.8-10.8) x10^3/uL RBC (4.70-6.10) 10^6/uL Hgb (14.0-18.0) g/dL Hct (42.0-52.0) % MCV (80.0-94.0) fL MCH (27.0-31.0) pg MCHC (32.0-36.0) g/dL RDW (12.0-15.0) % Plt Count (130-450) 10^3/uL MPV (7.4-11.4) fL Neut # (Auto) (1.5-6.6) 10^3/uL Lymph # (Auto) (1.5-3.5) 10^3/uL [place] # (Auto) (0.0-1.0) 10^3/uL Eos # (Auto) (0.0-0.7) 10^3/uL Baso # (Auto) (0.0-0.1) 10^3/uL Absolute Nucleated RBC x10^3/uL Nucleated RBC % /100WBC ESR (0-20) mm/Hr Sodium (135-145) mmol/L Potassium (3.5-5.0) mmol/L Chloride (101-111) mmol/L Carbon Dioxide (21-32) mmol/L Anion Gap (6-13) BUN (6-20) mg/dL Creatinine (0.6-1.2) mg/dL Estimated GFR (MDRD) (>89) Glucose (70-100) mg/dL POC Whole Bld Glucose 371 H 282 H (70 - 100) mg/dL Lactic Acid (0.5-2.2) mmol/L Calcium (8.5-10.3) mg/dL Total Bilirubin (0.2-1.0) mg/dL AST (10-42) IU/L ALT (10-60) IU/L Alkaline Phosphatase (42-121) IU/L C-Reactive Protein (0-1.0) mg/dL B-Natriuretic Peptide (5-100) pg/mL Total Protein (6.7-8.2) g/dL Albumin (3.2-5.5) g/dL Globulin (2.1-4.2) g/dL Albumin/Globulin Ratio (1.0-2.2) ABX Reporting Has patient been on IV antibiotics over the past 48 hours?: Yes Assessment/Plan - Problem List (1) Pneumonia Impression: Imaging on admission included a chest x-ray and a chest CT, which showed no pulmonary emboli, atelectasis at the left lung base, right upper lobe pneumonitis with patchy air trapping. At the time of admission he reported that his disposable inner trach cannula was stained the color of the cough drops and he worries about aspiration. He continues on IV vanco and IV Cefepime to cover aspiration pneumonia. A sputum sample was collected. He has been afebrile since admission and has been having favorable oxygen saturations on a trach humidified mask. I have added IV steroids as his body habitus does not allow for efficient pulmonary toileting. Plan: Continue to monitor and await culture results. Qualifiers: Pneumonia type: aspiration pneumonia Laterality: right Lung location: upper lobe of lung (2) Super obesity Impression: The patient's weight is now increased and is at 210 kg and on imaging has a lap band. He lives with is super obese mother. The 2 of them have [employer] workers in their home. The patient has struggled with his weight, and has felt hopeless about obesity since his brain aneurysm in 2007. He has underlying depression and chronic pain. He is immobile due to his weight, and his recent ankle fracture. He states that when he is at home and has his crutch, he is able to pivot to his wheel chair. I will order PT as his pneumonia improves. Plan: Recommend a weight reduction program as per PCP. 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 He refuses to explore a cuffed version and states that this would not allow him to speak. He reports that he most recently had a sore throat at home, used lozenges, and noticed that his inner trach cannula was stained red after sucking on the lozenges. Plan: Suggest out patient ENT follow up in prevention of aspiration events. (4) Pressure ulcer of sacral region, unspecified stage Impression: The patient is known to have a chronic sacral ulcer that causes him discomfort. He admits to an improvement as he has recently obtained a different bed at home to help improve his chronic pressure ulcers. Nursing took a picture of this wound upon arrival from the ED. It is not open, and is noted to be a stage I. It has not been necessary to involve our [facility] department. Plan: Continue Q2H turns, frequent nursing care and PT to evaluate. Qualifiers: Pressure injury stage: stage 1 Qualified Code(s): L89.151 - Pressure ulcer of sacral region, stage 1 (5) Chronic pain syndrome Impression: The patient has chronic joint pain for good reasons and the main reason is his super obesity. His size has taken a toll on his joints, in particular his back , hips and knees. The patient is prescribed an assortment of medications, all of which cause sedation or lethargy and they include; Baclofen, gabapentin, and oxycodone. He has requested additional pain medications while hospitalized upon admission, but this is not ideal as we suspect aspiration induced by somnolence. He notes to have fair control of his pain today upon exam, although at least 2 times he was sleeping at the time I came into his room. Plan: Continue home meds and watch for over sedation. (6) Diabetes type 2, uncontrolled Impression: The patient admits to elevated blood glucose at home with values >300. He cannot relate any recent changes to this. He denies changes in diet or changes to his medications. Upon admission he was noted to have a glucose of 334 in his labs. He is prescribed Lantus, metformin, and aspart. He proves to be very advanced in his insulin resistance with dosing of his Lantus at 38 units BID, and triple that amount at mealtimes of the Aspart. Metformin is on hold as hospital protocol. The patient feels frustrated that his blood sugars remain elevated and needs to be reminded of the current IV steroids as a possible culprit. Plan: Daily labs, continue lantus, aspart, blood sugar checks and SSI with mealtime dosing. (7) Chronic atrial fibrillation Impression: The patient is prescribed amioderone, diltiazem at home for his chronic atrial fibrillation that he has had for several years. 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 Vital sign charting indicate rates in the 80's. The patient denies palpitations or chest tightness. Plan: continue medications and monitor vital signs.
[2018-06-16] MEDS: oxyCODONE 5 MG TABLET PO PRN ×5 (00:03→21:25)
[2018-06-16] MEDS: VANCOMYCIN INJ 1 GM in SODIUM CHLORIDE 0.9% 250 ML IV SCH ×2 (01:34→08:33)
[2018-06-16] MEDS: CEFEPIME 2 GM in SODIUM CHLORIDE 0.9% MINIBAG 100 ML IV SCH ×3 (03:18→18:24)
[2018-06-16] MEDS: SODIUM CHLORIDE FLUSH 0.9% 10 ML SYRINGE IVP SCH ×3 (04:10→17:06)
[2018-06-16 05:25] LABS: BASOPHILS % (AUTO) 0.2 %; HGB - HEMOGLOBIN 13.7 g/dL (14.0-18.0); LYMPHOCYTES # (AUTO) 1.1 10^3/uL (1.5-3.5); LYMPHOCYTES % (AUTO) 8.6 %; MEAN CORPUSCULAR HEMOGLOBIN 28.4 pg (27.0-31.0); MEAN CORPUSCULAR HGB CONC 32.9 g/dL (32.0-36.0); MEAN CORPUSCULAR VOLUME 86.4 fL (80.0-94.0); MEAN PLATELET VOLUME 7.8 fL (7.4-11.4); MONOCYTES # (AUTO) 0.4 10^3/uL (0.0-1.0); MONOCYTES % (AUTO) 3.4 %; NEUTROPHILS # (AUTO) 10.9 10^3/uL (1.5-6.6); NEUTROPHILS % (AUTO) 87.8 %; PLT - PLATELET COUNT 253 10^3/uL (130-450); RED BLOOD COUNT 4.84 10^6/uL (4.70-6.10); RED CELL DISTRIBUTION WIDTH 13.8 % (12.0-15.0); WHITE BLOOD COUNT 12.4 x10^3/uL (4.8-10.8)
[2018-06-16 05:38] LABS: ALBUMIN 3.3 g/dL (3.2-5.5); ALBUMIN/GLOBULIN RATIO 1.1 (1.0-2.2); ALKALINE PHOSPHATASE 68 IU/L (42-121); ALT ALANINE AMINOTRANSFERASE 56 IU/L (10-60); AST ASPARTATE AMINOTRANSFERASE 39 IU/L (10-42); BILIRUBIN,TOTAL 0.7 mg/dL (0.2-1.0); BUN - BLOOD UREA NITROGEN 24 mg/dL (6-20); CALCIUM 8.9 mg/dL (8.5-10.3); CARBON DIOXIDE - CO2 35 mmol/L (21-32); CHLORIDE 93 mmol/L (101-111); CREATININE 0.7 mg/dL (0.6-1.2); GFR - MDRD 115 (>89); GLUCOSE 282 mg/dL (70-100); SODIUM 136 mmol/L (135-145); TOTAL PROTEIN 6.4 g/dL (6.7-8.2)
[2018-06-16 06:51] LABS: CRP - C-REACTIVE PROTEIN < 1.0 mg/dL (0-1.0)
[2018-06-16] MEDS: BACLOFEN 10 MG TABLET PO PRN ×2 (07:58→16:58)
[2018-06-16] MEDS: INSULIN ASPART 300 UNIT/3 ML PEN SUBQ SCH ×7 (08:32→21:26)
[2018-06-16] MEDS: AMIODARONE 200 MG TABLET PO SCH (08:33)
[2018-06-16] MEDS: buPROPion XL 150 MG TABLET PO SCH (08:33)
[2018-06-16] MEDS: diltiaZEM CD 120 MG CAPSULE PO SCH ×2 (08:33→21:25)
[2018-06-16] MEDS: ASPIRIN CHEW 81 MG TABLET PO SCH (08:33)
[2018-06-16] MEDS: methylPREDNISolone SUCCINATE 40 MG/ML VIAL IVP SCH ×2 (08:33→21:25)
[2018-06-16] MEDS: INSULIN GLARGINE 300 UNIT/3 ML PEN SUBQ SCH ×2 (08:34→21:27)
[2018-06-16] MEDS: POLYETHYLENE GLYCOL 3350 17 GM PACKET PO SCH (08:34)
[2018-06-16] MEDS: SERTRALINE 50 MG TABLET PO SCH (08:34)
[2018-06-16] MEDS: SODIUM CHLORIDE 0.9% 1,000 ML IV SCH (11:20)
--- NOTE | 2018-06-16 14:30 | PROVIDER PROGRESS NOTE ---
Subjective - Prog Note Date Prog Note Date: 06/16/18 Prog Note Time: 12:00 - Subjective Pt reports feeling: Improved Subjective: Rai admits to continued improvement and expresses frustration in the lack of blood sugar control. He denies any new symptoms and states that he enjoys staying up all night and sleeping during the day. Current Medications - Current Medications Current Medications: Active Medications Amiodarone HCl (Pacerone) 200 mg PO DAILY [facility] Last Admin: 06/16/18 08:33 Dose: 200 mg Aspirin ([place] Jhony Aspirin) 81 mg PO DAILY [facility] Last Admin: 06/16/18 08:33 Dose: 81 mg Baclofen (Lioresal) 10 mg PO QID PRN PRN Reason: Spasms Last Admin: 06/16/18 16:58 Dose: 10 mg Bupropion HCl (Wellbutrin Xl) 300 mg PO DAILY [facility] Last Admin: 06/16/18 08:33 Dose: 300 mg Diltiazem HCl (Cardizem Cd) 120 mg PO BID [facility] Last Admin: 06/16/18 08:33 Dose: 120 mg Furosemide (Lasix) 60 mg PO DAILY [facility] Gabapentin (Neurontin) 200 mg PO QPM [facility] Last Admin: 06/15/18 20:58 Dose: 200 mg Cefepime HCl 2 gm/ Sodium (Chloride) 100 mls @ 200 mls/hr IV Q8H [facility] Last Infusion: 06/16/18 19:39 Dose: Infused Sodium Chloride (Normal Saline 0.9%) 1,000 mls @ 0 mls/hr IV .Q0M [facility] PRN Reason: TKO Last Admin: 06/16/18 11:20 Dose: 20 mls/hr Insulin Aspart (Novolog) 3 - 11 unit SUBQ 0800,1200,1700,2100 [facility] PRN Reason: Protocol Last Admin: 06/16/18 17:02 Dose: 20 unit Insulin Aspart (Novolog) 30 unit SUBQ TIDWM [place] PRN Reason: Protocol Last Admin: 06/16/18 17:05 Dose: 30 unit Insulin Glargine (Lantus Solostar) 45 unit SUBQ BID [facility] Last Admin: 06/16/18 08:34 Dose: 45 unit Lidocaine HCl (Xylocaine Uro-Jet 2%) 2.5 ml UR Q6H PRN PRN Reason: PAIN Methylprednisolone (Solu-Medrol (40mg Vial)) 40 mg IVP BID [facility] Last Admin: 06/16/18 08:33 Dose: 40 mg Oxycodone HCl (Roxicodone) 10 mg PO Q5H PRN PRN Reason: PAIN Last Admin: 06/16/18 16:58 Dose: 10 mg Polyethylene Glycol (Miralax) 17 gm PO DAILY [facility] Last Admin: 06/16/18 08:34 Dose: Not Given Prednisone (Deltasone) 60 mg PO DAILYWM [facility] Sertraline HCl (Zoloft) 200 mg PO DAILY [facility] Last Admin: 06/16/18 08:34 Dose: 200 mg Sodium Chloride (Normal Saline Flush 0.9%) 10 ml IVP PRN PRN PRN Reason: NEEDED PER PROVIDER ORDERS Last Admin: 06/15/18 05:08 Dose: 10 ml Sodium Chloride (Normal Saline Flush 0.9%) 10 ml IVP 0100,0900,1700 [facility] Last Admin: 06/16/18 17:06 Dose: Not Given Spironolactone (Aldactone) 25 mg PO DAILY [facility] Insulin Glargine,Hum.rec.anlog [Lantus Solostar] 38 unit SUBQ BID 03/20/13 Lovastatin 40 mg PO QPM 03/20/13 metFORMIN [Glucophage] 1,000 mg PO BIDWM 03/20/13 Aspirin 81 mg PO DAILY 10/04/16 Insulin Aspart [Novolog Flexpen] 0 - 20 unit SUBQ TIDWM MDD 90 UNITS 10/04/16 Gabapentin 200 mg PO QPM 03/11/17 Icosapent Ethyl [Vascepa] 2 gm PO BID 03/12/17 Sertraline HCl [Zoloft] 200 mg PO DAILY 03/12/17 Albuterol 3 ml INH BID PRN 05/03/18 Amiodarone HCl 200 mg PO DAILY 05/03/18 Baclofen 10 mg PO QID PRN 05/03/18 Bupropion HCl [Bupropion Xl] 300 mg PO DAILY 05/03/18 Oxycodone HCl 10 mg PO Q5H PRN MDD 50 05/03/18 Diltiazem HCl [Diltiazem ER] 120 mg PO BID 06/13/18 Multivitamin [Theragran] 1 tab PO DAILY 08/29/18 Orting-3 Acid Ethyl Esters [Lovaza] 1 gm PO BID 06/13/18 Objective - Vital Signs/Intake & Output Reviewed Vital Signs: Yes Vital Signs: Vital Signs x48h Temp Pulse Resp BP Pulse Ox 06/16/18 13:02 37.0 C 82 17 152/80 H 93 06/16/18 07:59 36.9 C 83 17 155/90 H 96 Intake & Output: Intake & Output 06/13/18 06/14/18 06/15/18 06/16/18 23:59 23:59 23:59 23:59 Intake Total 2369.053 4240.000 3725 2200 Output Total 4200 7550 8775 3050 Balance -8500.947 -3310.000 -5050 -850 - Objective General Appearance: positive: No acute distress, Alert Eyes Bilateral: positive: Normal inspection, PERRL Eyes: OU Conjunctivae pale ENT: positive: ENT inspection nml, Pharyngeal erythema, Dry mucous membranes Neck: positive: Thyroid nml, No JVD, Trachea midline (chronic trach in place with a humidifier mask to prevent mucous plugging.) Respiratory: positive: Chest non-tender, No respiratory distress, Other ( diminished) Cardiovascular: positive: No gallop, Irregularly irregular, Systolic murmur, Decreased pulse(s) Peripheral Pulses: 1+ Radial (R), 1+ Radial (L) Abdomen: positive: Non-tender, Nml bowel sounds, Other (obese, soft, baseline) Back: positive: Nml inspection Skin: positive: No rash, Warm, Dry, Decubitus (chronic stage I, coccyx.) Extremities: positive: Pedal edema (chronic, BLE) Neurologic/Psychiatric: positive: Oriented x3, Weakness, Sensory loss, Depressed mood/affect Reflexes: Bicep (R): 2+, Bicep (L): 2+ - Lab Results Fish Bones: 06/16/18 05:10 06/16/18 05:10 Other Labs: Lab Results x24hrs 06/16/18 06/16/18 06/16/18 Range/Units 11:52 07:40 05:10 WBC (4.8-10.8) x10^3/uL RBC (4.70-6.10) 10^6/uL Hgb (14.0-18.0) g/dL Hct (42.0-52.0) % MCV (80.0-94.0) fL MCH (27.0-31.0) pg MCHC (32.0-36.0) g/dL RDW (12.0-15.0) % Plt Count (130-450) 10^3/uL MPV (7.4-11.4) fL Neut # (Auto) (1.5-6.6) 10^3/uL Lymph # (Auto) (1.5-3.5) 10^3/uL [place] # (Auto) (0.0-1.0) 10^3/uL Eos # (Auto) (0.0-0.7) 10^3/uL Baso # (Auto) (0.0-0.1) 10^3/uL Absolute Nucleated RBC x10^3/uL Nucleated RBC % /100WBC ESR (0-20) mm/Hr Sodium (135-145) mmol/L Potassium (3.5-5.0) mmol/L Chloride (101-111) mmol/L Carbon Dioxide (21-32) mmol/L Anion Gap (6-13) BUN (6-20) mg/dL Creatinine (0.6-1.2) mg/dL Estimated GFR (MDRD) (>89) Glucose (70-100) mg/dL POC Whole Bld Glucose 250 H 281 H (70 - 100) mg/dL Lactic Acid (0.5-2.2) mmol/L Calcium (8.5-10.3) mg/dL Total Bilirubin (0.2-1.0) mg/dL AST (10-42) IU/L ALT (10-60) IU/L Alkaline Phosphatase (42-121) IU/L C-Reactive Protein (0-1.0) mg/dL B-Natriuretic Peptide 64 (5-100) pg/mL Total Protein (6.7-8.2) g/dL Albumin (3.2-5.5) g/dL Globulin (2.1-4.2) g/dL Albumin/Globulin Ratio (1.0-2.2) 06/16/18 06/16/18 06/16/18 Range/Units 05:10 05:10 05:10 WBC 12.4 H (4.8-10.8) x10^3/uL RBC 4.84 (4.70-6.10) 10^6/uL Hgb 13.7 L (14.0-18.0) g/dL Hct 41.8 L (42.0-52.0) % MCV 86.4 (80.0-94.0) fL MCH 28.4 (27.0-31.0) pg MCHC 32.9 (32.0-36.0) g/dL RDW 13.8 (12.0-15.0) % Plt Count 253 (130-450) 10^3/uL MPV 7.8 (7.4-11.4) fL Neut # (Auto) 10.9 H (1.5-6.6) 10^3/uL Lymph # (Auto) 1.1 L (1.5-3.5) 10^3/uL [place] # (Auto) 0.4 (0.0-1.0) 10^3/uL Eos # (Auto) 0.0 (0.0-0.7) 10^3/uL Baso # (Auto) 0.0 (0.0-0.1) 10^3/uL Absolute Nucleated RBC 0.02 x10^3/uL Nucleated RBC % 0.1 /100WBC ESR (0-20) mm/Hr Sodium 136 (135-145) mmol/L Potassium 4.5 (3.5-5.0) mmol/L Chloride 93 L (101-111) mmol/L Carbon Dioxide 35 H (21-32) mmol/L Anion Gap 8.0 (6-13) BUN 24 H (6-20) mg/dL Creatinine 0.7 (0.6-1.2) mg/dL Estimated GFR (MDRD) 115 (>89) Glucose 282 H (70-100) mg/dL POC Whole Bld Glucose (70 - 100) mg/dL Lactic Acid 1.0 (0.5-2.2) mmol/L Calcium 8.9 (8.5-10.3) mg/dL Total Bilirubin 0.7 (0.2-1.0) mg/dL AST 39 (10-42) IU/L ALT 56 (10-60) IU/L Alkaline Phosphatase 68 (42-121) IU/L C-Reactive Protein < 1.0 (0-1.0) mg/dL B-Natriuretic Peptide (5-100) pg/mL Total Protein 6.4 L (6.7-8.2) g/dL Albumin 3.3 (3.2-5.5) g/dL Globulin 3.1 (2.1-4.2) g/dL Albumin/Globulin Ratio 1.1 (1.0-2.2) 06/16/18 06/15/18 06/15/18 Range/Units 05:10 20:32 16:35 WBC (4.8-10.8) x10^3/uL RBC (4.70-6.10) 10^6/uL Hgb (14.0-18.0) g/dL Hct (42.0-52.0) % MCV (80.0-94.0) fL MCH (27.0-31.0) pg MCHC (32.0-36.0) g/dL RDW (12.0-15.0) % Plt Count (130-450) 10^3/uL MPV (7.4-11.4) fL Neut # (Auto) (1.5-6.6) 10^3/uL Lymph # (Auto) (1.5-3.5) 10^3/uL [place] # (Auto) (0.0-1.0) 10^3/uL Eos # (Auto) (0.0-0.7) 10^3/uL Baso # (Auto) (0.0-0.1) 10^3/uL Absolute Nucleated RBC x10^3/uL Nucleated RBC % /100WBC ESR 5 (0-20) mm/Hr Sodium (135-145) mmol/L Potassium (3.5-5.0) mmol/L Chloride (101-111) mmol/L Carbon Dioxide (21-32) mmol/L Anion Gap (6-13) BUN (6-20) mg/dL Creatinine (0.6-1.2) mg/dL Estimated GFR (MDRD) (>89) Glucose (70-100) mg/dL POC Whole Bld Glucose 250 H 328 H (70 - 100) mg/dL Lactic Acid (0.5-2.2) mmol/L Calcium (8.5-10.3) mg/dL Total Bilirubin (0.2-1.0) mg/dL AST (10-42) IU/L ALT (10-60) IU/L Alkaline Phosphatase (42-121) IU/L C-Reactive Protein (0-1.0) mg/dL B-Natriuretic Peptide (5-100) pg/mL Total Protein (6.7-8.2) g/dL Albumin (3.2-5.5) g/dL Globulin (2.1-4.2) g/dL Albumin/Globulin Ratio (1.0-2.2) ABX Reporting Has patient been on IV antibiotics over the past 48 hours?: Yes Assessment/Plan - Problem List (1) Pneumonia Impression: Imaging on admission included a chest x-ray and a chest CT, which showed no pulmonary emboli, atelectasis at the left lung base, right upper lobe pneumonitis with patchy air trapping. At the time of admission he reported that his disposable inner trach cannula was stained the color of the cough drops and he worries about aspiration. He has been afebrile since admission and has been 90-95% on a trach humidified mask. He has only a mild elevation in WBCs today at 12.4, which may be from the IV steroids, which will be transitioned to oral tomorrow. These were started as his body habitus does not allow for efficient pulmonary toileting. Sputum culture results have grown out Serratia Marcescens, which is sensitive to several antibiotics. He remains on IV cefepime, and the IV vanco has been discontinued. Plan: Continue to monitor and await culture results. Qualifiers: Pneumonia type: aspiration pneumonia Laterality: right Lung location: upper lobe of lung (2) Super obesity Impression: The patient's weight is now increased and is at 210 kg and on imaging has a lap band. He has underlying depression and chronic pain. He is immobile due to his weight, and his recent ankle fracture. He states that when he is at home and has his crutch, he is able to pivot to his wheel chair. I will order PT that can start tomorrow. Plan: Recommend a weight reduction program as per PCP. 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 He refuses to explore a cuffed version and states that this would not allow him to speak. He reports that he most recently had a sore throat at home, used lozenges, and noticed that his inner trach cannula was stained red after sucking on the lozenges. Plan: Suggest out patient ENT follow up in prevention of aspiration events. (4) Pressure ulcer of sacral region, unspecified stage Impression: The patient is known to have a chronic sacral ulcer that causes him discomfort. He admits to an improvement as he has recently obtained a different bed at home to help improve his chronic pressure ulcers. It has not been necessary to involve our [facility] department and the patient denies increased pain to this area. Plan: Continue Q2H turns, frequent nursing care and PT to evaluate. Qualifiers: Pressure injury stage: stage 1 Qualified Code(s): L89.151 - Pressure ulcer of sacral region, stage 1 (5) Chronic pain syndrome Impression: The patient has chronic joint pain for good reasons and the main reason is his super obesity. His size has taken a toll on his joints, in particular his back , hips and knees. The patient is prescribed; Baclofen, gabapentin, and oxycodone at home which continue while hospitalized. I have re-stated the reasons why adding more pain medications is not ideal, and he agrees. He has not complaints of increased pain today upon exam. Plan: Continue home meds and watch for over sedation. (6) Diabetes type 2, uncontrolled Impression: Upon admission he was noted to have a glucose of 334 in his labs. He is prescribed Lantus, metformin, and aspart at home. He proves to be very advanced in his insulin resistance with dosing of his Lantus at 38 units BID, and triple that amount at mealtimes of the Aspart. Metformin is on hold as hospital protocol. The patient feels frustrated that his blood sugars remain elevated and needs to be reminded of the current IV steroids as a possible culprit. His IV steroids will be changed to PO starting in the morning, which may help with his prolonged hyperglycemia. Plan: Daily labs, continue lantus, aspart, blood sugar checks and SSI with mealtime dosing. (7) Chronic atrial fibrillation Impression: The patient is prescribed amioderone, diltiazem at home for his chronic atrial fibrillation that he has had for several years. 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 Vital sign charting indicate rates in the 80's. The patient denies palpitations or chest tightness. Plan: continue medications and monitor vital signs. (8) Pulmonary hypertension Impression: The patient has severe RA enlargement, and moderately elevated right heart pressures. He has evidence of this by his increased abdominal girth, and chronic BLE edema. His home dosing of lasix and Spironolactone was resumed as his pneumonia is thought to be in good control and his fluid balance is over, with increased weights and increased generalized edema. Plan: Continue meds, daily weights and monitor fluid status/respiratory status.
[2018-06-16] MEDS ORDERED: FUROSEMIDE 40 MG/4 ML VIAL IVP SCH (16:38)
[2018-06-16] MEDS ORDERED: WATER FOR INJECTION,STERILE 10 ML ONE (18:16)
[2018-06-16] MEDS: GABAPENTIN 100 MG CAPSULE PO SCH (21:25)
[2018-06-17] MEDS: oxyCODONE 5 MG TABLET PO PRN ×5 (01:35→22:08)
[2018-06-17] MEDS: CEFEPIME 2 GM in SODIUM CHLORIDE 0.9% MINIBAG 100 ML IV SCH ×3 (02:47→19:23)
[2018-06-17] MEDS: SODIUM CHLORIDE FLUSH 0.9% 10 ML SYRINGE IVP SCH ×3 (02:49→19:23)
[2018-06-17 05:42] LABS: BASOPHILS % (AUTO) 0.2 %; HGB - HEMOGLOBIN 14.4 g/dL (14.0-18.0); LYMPHOCYTES % (AUTO) 7.5 %; MEAN CORPUSCULAR HEMOGLOBIN 28.2 pg (27.0-31.0); MEAN CORPUSCULAR HGB CONC 32.8 g/dL (32.0-36.0); MEAN CORPUSCULAR VOLUME 86.1 fL (80.0-94.0); MEAN PLATELET VOLUME 7.9 fL (7.4-11.4); MONOCYTES # (AUTO) 0.6 10^3/uL (0.0-1.0); NEUTROPHILS # (AUTO) 12.3 10^3/uL (1.5-6.6); NEUTROPHILS % (AUTO) 88.3 %; PLT - PLATELET COUNT 274 10^3/uL (130-450); RED CELL DISTRIBUTION WIDTH 13.9 % (12.0-15.0)
[2018-06-17 05:56] LABS: ALBUMIN 3.5 g/dL (3.2-5.5); ALBUMIN/GLOBULIN RATIO 1.1 (1.0-2.2); BILIRUBIN,TOTAL 0.8 mg/dL (0.2-1.0); CALCIUM 9.1 mg/dL (8.5-10.3); CREATININE 0.8 mg/dL (0.6-1.2); TOTAL PROTEIN 6.6 g/dL (6.7-8.2)
[2018-06-17 06:21] LABS: HB2 TOTAL 15.4 g/dL; HEMOGLOBIN A1C 1.26 g/dL; HEMOGLOBIN A1C % 9.6 % (4.6-6.2)
[2018-06-17] MEDS: INSULIN ASPART 300 UNIT/3 ML PEN SUBQ SCH ×7 (08:03→20:54)
--- NOTE | 2018-06-17 08:18 | PROVIDER PROGRESS NOTE ---
Subjective - Prog Note Date Prog Note Date: 06/17/18 Prog Note Time: 08:18 - Subjective Pt reports feeling: Improved Subjective: Rai has no complaints except a gurgling cough at times. He denies new symptoms such as chest pain, increased shortness of breath, nausea, vomiting, or dizziness. Current Medications - Current Medications Current Medications: Active Medications Amiodarone HCl (Pacerone) 200 mg PO DAILY [facility] Last Admin: 06/18/18 09:17 Dose: 200 mg Aspirin ([place] Aspirin) 81 mg PO DAILY [facility] Last Admin: 06/18/18 09:15 Dose: 81 mg Baclofen (Lioresal) 10 mg PO QID PRN PRN Reason: Spasms Last Admin: 06/18/18 14:20 Dose: 10 mg Bupropion HCl (Wellbutrin Xl) 300 mg PO DAILY [facility] Last Admin: 06/18/18 09:15 Dose: 300 mg Diltiazem HCl (Cardizem Cd) 120 mg PO BID [facility] Last Admin: 06/18/18 09:17 Dose: 120 mg Furosemide (Lasix) 60 mg PO DAILY [facility] Last Admin: 06/18/18 09:16 Dose: 60 mg Gabapentin (Neurontin) 200 mg PO QPM [facility] Last Admin: 06/17/18 20:53 Dose: 200 mg Cefepime HCl 2 gm/ Sodium (Chloride) 100 mls @ 200 mls/hr IV Q8H [facility] Last Infusion: 06/18/18 12:31 Dose: Infused Sodium Chloride (Normal Saline 0.9%) 1,000 mls @ 0 mls/hr IV .Q0M [place] PRN Reason: TKO Last Admin: 06/16/18 11:20 Dose: 20 mls/hr Insulin Aspart (Novolog) 3 - 11 unit SUBQ 0800,1200,1700,2100 [place] PRN Reason: Protocol Last Admin: 06/18/18 12:01 Dose: 9 unit Insulin Aspart (Novolog) 30 unit SUBQ TIDWM [place] PRN Reason: Protocol Last Admin: 06/18/18 12:01 Dose: 30 unit Insulin Glargine (Lantus Solostar) 45 unit SUBQ BID [facility] Last Admin: 06/18/18 08:32 Dose: 45 unit Lidocaine HCl (Xylocaine Uro-Jet 2%) 2.5 ml UR Q6H PRN PRN Reason: PAIN Nystatin (Nystop) 1 applic TOP BID [facility] Oxycodone HCl (Roxicodone) 10 mg PO Q5H PRN PRN Reason: PAIN Last Admin: 06/18/18 14:20 Dose: 10 mg Polyethylene Glycol (Miralax) 17 gm PO DAILY [facility] Last Admin: 06/18/18 09:16 Dose: 17 gm Prednisone (Deltasone) 60 mg PO DAILYWM [facility] Last Admin: 06/18/18 08:31 Dose: 60 mg Sertraline HCl (Zoloft) 200 mg PO DAILY [facility] Last Admin: 06/18/18 09:17 Dose: 200 mg Sodium Chloride (Normal Saline Flush 0.9%) 10 ml IVP PRN PRN PRN Reason: NEEDED PER PROVIDER ORDERS Last Admin: 06/15/18 05:08 Dose: 10 ml Sodium Chloride (Normal Saline Flush 0.9%) 10 ml IVP 0100,0900,1700 [facility] Last Admin: 06/18/18 09:17 Dose: 10 ml Spironolactone (Aldactone) 25 mg PO DAILY [facility] Last Admin: 06/18/18 09:17 Dose: 25 mg Insulin Glargine,Hum.rec.anlog [Lantus Solostar] 38 unit SUBQ BID 03/20/13 Lovastatin 40 mg PO QPM 03/20/13 metFORMIN [Glucophage] 1,000 mg PO BIDWM 03/20/13 Aspirin 81 mg PO DAILY 10/04/16 Insulin Aspart [Novolog Flexpen] 0 - 20 unit SUBQ TIDWM MDD 90 UNITS 10/04/16 Gabapentin 200 mg PO QPM 03/11/17 Icosapent Ethyl [Vascepa] 2 gm PO BID 03/12/17 Sertraline HCl [Zoloft] 200 mg PO DAILY 03/12/17 Albuterol 3 ml INH BID PRN 05/03/18 Amiodarone HCl 200 mg PO DAILY 05/03/18 Baclofen 10 mg PO QID PRN 05/03/18 Bupropion HCl [Bupropion Xl] 300 mg PO DAILY 05/03/18 Oxycodone HCl 10 mg PO Q5H PRN MDD 50 05/03/18 Diltiazem HCl [Diltiazem ER] 120 mg PO BID 06/13/18 Multivitamin [Theragran] 1 tab PO DAILY 06/13/18 [place]-3 Acid Ethyl Esters [Lovaza] 1 gm PO BID 06/13/18 Calcium Citrate/Vitamin D3 [Calcium Citrate-Vit D3 Tablet] 2 tab PO DAILY Cinnamon Bark [Cinnamon] 500 PO DAILY 06/17/18 Cranberry Fruit Extract [Cranberry] 300 mg PO DAILY 06/17/18 Garlic 1,000 mg PO DAILY 06/17/18 Objective - Vital Signs/Intake & Output Reviewed Vital Signs: Yes Vital Signs: Vital Signs x48h Temp Pulse Resp BP Pulse Ox 06/17/18 05:00 36.8 C 89 20 149/74 H 93 06/17/18 00:41 36.9 C 85 18 138/78 H 94 Intake & Output: Intake & Output 06/14/18 06/15/18 06/16/18 06/17/18 23:59 23:59 23:59 23:59 Intake Total 4240.000 3725 2780 750 Output Total 7550 8775 8750 2700 Balance -3310.000 -5050 -5970 -1950 - Objective General Appearance: positive: No acute distress, Alert Eyes Bilateral: positive: Normal inspection, PERRL ENT: positive: ENT inspection nml, Pharynx nml, Dry mucous membranes Neck: positive: Nml inspection, Trachea midline (chronic trach in place), Lymphadenopathy (R), Lymphadenopathy (L), Stiff neck Respiratory: positive: Chest non-tender, Rhonchi (coarse crackles that clear with cough, bilaterally) Cardiovascular: positive: No gallop, Irregularly irregular, Systolic murmur Peripheral Pulses: 1+ Radial (R), 1+ Radial (L) Abdomen: positive: Non-tender, Nml bowel sounds, Other (obese, soft) Back: positive: Nml inspection Skin: positive: No rash, Warm, Dry, Decubitus (stage I coccyx, intact) Extremities: positive: Non-tender, Pedal edema (Patient is non-ambulatory, moderate BLE edema and abdominal edema.), Joint swelling Neurologic/Psychiatric: positive: Oriented x3, Motor nml, Sensation nml, Depressed mood/affect, Other (RUE with mild atrophy and loss of function since 2007-post brain aneurysm) Reflexes: Bicep (R): 2+, Bicep (L): 3+ - Lab Results Fish Bones: 06/18/18 05:20 06/18/18 05:20 Other Labs: Lab Results x24hrs 06/17/18 06/17/18 06/17/18 Range/Units 07:50 05:15 05:15 WBC (4.8-10.8) x10^3/uL RBC (4.70-6.10) 10^6/uL Hgb (14.0-18.0) g/dL Hct (42.0-52.0) % MCV (80.0-94.0) fL MCH (27.0-31.0) pg MCHC (32.0-36.0) g/dL RDW (12.0-15.0) % Plt Count (130-450) 10^3/uL MPV (7.4-11.4) fL Neut # (Auto) (1.5-6.6) 10^3/uL Lymph # (Auto) (1.5-3.5) 10^3/uL Gillespie # (Auto) (0.0-1.0) 10^3/uL Eos # (Auto) (0.0-0.7) 10^3/uL Baso # (Auto) (0.0-0.1) 10^3/uL Absolute Nucleated RBC x10^3/uL Nucleated RBC % /100WBC Sodium 134 L (135-145) mmol/L Potassium 4.3 (3.5-5.0) mmol/L Chloride 90 L (101-111) mmol/L Carbon Dioxide 37 H (21-32) mmol/L Anion Gap 7.0 (6-13) BUN 23 H (6-20) mg/dL Creatinine 0.8 (0.6-1.2) mg/dL Estimated GFR (MDRD) 99 (>89) Glucose 385 H (70-100) mg/dL POC Whole Bld Glucose 367 H (70 - 100) mg/dL Glycated Hemoglobin 9.6 H (4.6-6.2) % Estim Average Glucose 229 H (70-100) Calcium 9.1 (8.5-10.3) mg/dL Magnesium 2.0 (1.7-2.8) mg/dL Total Bilirubin 0.8 (0.2-1.0) mg/dL AST 42 (10-42) IU/L ALT 82 H (10-60) IU/L Alkaline Phosphatase 70 (42-121) IU/L Total Protein 6.6 L (6.7-8.2) g/dL Albumin 3.5 (3.2-5.5) g/dL Globulin 3.1 (2.1-4.2) g/dL Albumin/Globulin Ratio 1.1 (1.0-2.2) 06/17/18 06/16/18 Range/Units 05:15 11:52 WBC 14.0 H (4.8-10.8) x10^3/uL RBC 5.10 (4.70-6.10) 10^6/uL Hgb 14.4 (14.0-18.0) g/dL Hct 43.9 (42.0-52.0) % MCV 86.1 (80.0-94.0) fL MCH 28.2 (27.0-31.0) pg MCHC 32.8 (32.0-36.0) g/dL RDW 13.9 (12.0-15.0) % Plt Count 274 (130-450) 10^3/uL MPV 7.9 (7.4-11.4) fL Neut # (Auto) 12.3 H (1.5-6.6) 10^3/uL Lymph # (Auto) 1.0 L (1.5-3.5) 10^3/uL Gillespie # (Auto) 0.6 (0.0-1.0) 10^3/uL Eos # (Auto) 0.0 (0.0-0.7) 10^3/uL Baso # (Auto) 0.0 (0.0-0.1) 10^3/uL Absolute Nucleated RBC 0.00 x10^3/uL Nucleated RBC % 0.0 /100WBC Sodium (135-145) mmol/L Potassium (3.5-5.0) mmol/L Chloride (101-111) mmol/L Carbon Dioxide (21-32) mmol/L Anion Gap (6-13) BUN (6-20) mg/dL Creatinine (0.6-1.2) mg/dL Estimated GFR (MDRD) (>89) Glucose (70-100) mg/dL POC Whole Bld Glucose 250 H (70 - 100) mg/dL Glycated Hemoglobin (4.6-6.2) % Estim Average Glucose (70-100) Calcium (8.5-10.3) mg/dL Magnesium (1.7-2.8) mg/dL Total Bilirubin (0.2-1.0) mg/dL AST (10-42) IU/L ALT (10-60) IU/L Alkaline Phosphatase (42-121) IU/L Total Protein (6.7-8.2) g/dL Albumin (3.2-5.5) g/dL Globulin (2.1-4.2) g/dL Albumin/Globulin Ratio (1.0-2.2) ABX Reporting Has patient been on IV antibiotics over the past 48 hours?: Yes Assessment/Plan - Problem List (1) Pneumonia Impression: Imaging on admission included a chest x-ray and a chest CT, which showed no pulmonary emboli, atelectasis at the left lung base, right upper lobe pneumonitis with patchy air trapping. At the time of admission he reported that his disposable inner trach cannula was stained the color of the cough drops and he worries about aspiration. He has been afebrile since admission and has been 90-95% on a trach humidified mask. The patient's body habitus does not allow for efficient pulmonary toileting. Sputum culture results have grown out Serratia Marcescens & pseudomonas aeruginosa, which is Cefepime covers BOTH. He is on day #4 of 7 treatment. There are no oral equivalents for both patogens, so this will prolong his hospital stay past 4-days. I have added Mucsinex. Plan: Continue to monitor and await culture results. There are no oral equivalents for both patogens, so this will prolong his hospital stay past 4-days. Qualifiers: Pneumonia type: aspiration pneumonia Laterality: right Lung location: upper lobe of lung (2) Super obesity Impression: The patient's weight has been stable at 210 kg and on imaging has a lap band. He has underlying depression and chronic pain. He is immobile due to his weight , and his recent ankle fracture. He states that when he is at home and has his crutch, he is able to pivot to his wheel chair. Physical therapy is on hold until closer to discharge to evaluate for home services. Plan: Recommend a weight reduction program as per PCP and a lap band adjustment. 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 He refuses to explore a cuffed version and states that this would not allow him to speak. He reports that he most recently had a sore throat at home, used lozenges, and noticed that his inner trach cannula was stained red after sucking on the lozenges. Plan: Suggest out patient ENT follow up in prevention of aspiration events. (4) Pressure ulcer of sacral region, unspecified stage Impression: The patient is known to have a chronic sacral ulcer that causes him discomfort. He admits to an improvement as he has recently obtained a different bed at home to help improve his chronic pressure ulcers. It has not been necessary to involve our [facility] department and the patient denies increased pain to this area. Plan: Continue Q2H turns, frequent nursing care and PT to evaluate. Qualifiers: Pressure injury stage: stage 1 Qualified Code(s): L89.151 - Pressure ulcer of sacral region, stage 1 (5) Chronic pain syndrome Impression: The patient has chronic joint pain for good reasons and the main reason is his super obesity. His size has taken a toll on his joints, in particular his back , hips and knees. The patient is prescribed; Baclofen, gabapentin, and oxycodone at home which continue while hospitalized. I have re-stated the reasons why adding more pain medications is not ideal, and he agrees. He has no complaints of increased pain today upon exam. Plan: Continue home meds and watch for over sedation. (6) Diabetes type 2, uncontrolled Impression: This morning he had a very elevated early AM sugar of 393. He is prescribed Lantus, metformin, and aspart at home. He proves to be very advanced in his insulin resistance with dosing of his Lantus at 38 units BID, and triple that amount at mealtimes of the Aspart. Metformin is on hold as hospital protocol. The patient feels frustrated that his blood sugars remain elevated and needs to be reminded of the current steroids as a possible culprit. He continues on oral Prednisone, which may contribute to his prolonged hyperglycemia. Plan: Daily labs, continue lantus, aspart, blood sugar checks and SSI with mealtime dosing. (7) Chronic atrial fibrillation Impression: The patient is prescribed amioderone, diltiazem at home for his chronic atrial fibrillation that he has had for several years. 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 Vital sign charting indicate rates in the 80's. The patient denies palpitations or chest tightness. Plan: continue medications and monitor vital signs. (8) Pulmonary hypertension Impression: The patient has severe RA enlargement, and moderately elevated right heart pressures. He has evidence of this by his increased abdominal girth, and chronic BLE edema. His home dosing of lasix and Spironolactone was resumed as his pneumonia is thought to be in good control and his fluid balance is over, with increased weights and increased generalized edema. Plan: Continue meds, daily weights and monitor fluid status/respiratory status.
[2018-06-17] MEDS: diltiaZEM CD 120 MG CAPSULE PO SCH ×2 (08:56→20:53)
[2018-06-17] MEDS: ASPIRIN CHEW 81 MG TABLET PO SCH (08:57)
[2018-06-17] MEDS: predniSONE 20 MG TABLET PO SCH (08:57)
[2018-06-17] MEDS: buPROPion XL 150 MG TABLET PO SCH (08:57)
[2018-06-17] MEDS: FUROSEMIDE 20 MG TABLET PO SCH (08:58)
[2018-06-17] MEDS: AMIODARONE 200 MG TABLET PO SCH (08:58)
[2018-06-17] MEDS: SPIRONOLACTONE 25 MG TABLET PO SCH (08:58)
[2018-06-17] MEDS: SERTRALINE 50 MG TABLET PO SCH (08:58)
[2018-06-17] MEDS: POLYETHYLENE GLYCOL 3350 17 GM PACKET PO SCH (08:58)
[2018-06-17] MEDS: INSULIN GLARGINE 300 UNIT/3 ML PEN SUBQ SCH ×2 (08:58→20:54)
[2018-06-17] MEDS: BACLOFEN 10 MG TABLET PO PRN ×2 (16:52→22:08)
[2018-06-17] MEDS: GABAPENTIN 100 MG CAPSULE PO SCH (20:53)
[2018-06-18] MEDS: SODIUM CHLORIDE FLUSH 0.9% 10 ML SYRINGE IVP SCH ×3 (00:58→17:20)
[2018-06-18] MEDS: CEFEPIME 2 GM in SODIUM CHLORIDE 0.9% MINIBAG 100 ML IV SCH ×3 (03:23→19:06)
[2018-06-18] MEDS: oxyCODONE 5 MG TABLET PO PRN ×4 (04:19→20:10)
[2018-06-18 05:30] LABS: BASOPHILS # (AUTO) 0.1 10^3/uL (0.0-0.1); BASOPHILS % (AUTO) 0.4 %; EOSINOPHILS # (AUTO) 0.1 10^3/uL (0.0-0.7); EOSINOPHILS % (AUTO) 0.4 %; HGB - HEMOGLOBIN 14.4 g/dL (14.0-18.0); LYMPHOCYTES # (AUTO) 3.3 10^3/uL (1.5-3.5); LYMPHOCYTES % (AUTO) 23.3 %; MEAN CORPUSCULAR HEMOGLOBIN 28.5 pg (27.0-31.0); MEAN CORPUSCULAR VOLUME 86.5 fL (80.0-94.0); MEAN PLATELET VOLUME 7.8 fL (7.4-11.4); MONOCYTES # (AUTO) 1.2 10^3/uL (0.0-1.0); MONOCYTES % (AUTO) 8.2 %; NEUTROPHILS # (AUTO) 9.7 10^3/uL (1.5-6.6); NEUTROPHILS % (AUTO) 67.7 %; PLT - PLATELET COUNT 237 10^3/uL (130-450); RED BLOOD COUNT 5.06 10^6/uL (4.70-6.10); RED CELL DISTRIBUTION WIDTH 14.1 % (12.0-15.0); WHITE BLOOD COUNT 14.3 x10^3/uL (4.8-10.8)
[2018-06-18 05:40] LABS: ALBUMIN 3.2 g/dL (3.2-5.5); ALBUMIN/GLOBULIN RATIO 1.1 (1.0-2.2); BILIRUBIN,TOTAL 0.6 mg/dL (0.2-1.0); CREATININE 0.8 mg/dL (0.6-1.2); TOTAL PROTEIN 6.2 g/dL (6.7-8.2)
[2018-06-18] MEDS: predniSONE 20 MG TABLET PO SCH (08:31)
[2018-06-18] MEDS: INSULIN ASPART 300 UNIT/3 ML PEN SUBQ SCH ×7 (08:32→21:24)
[2018-06-18] MEDS: INSULIN GLARGINE 300 UNIT/3 ML PEN SUBQ SCH ×2 (08:32→21:23)
[2018-06-18] MEDS ORDERED: SENNA 8.6 MG TABLET PO SCH (09:00)
[2018-06-18] MEDS ORDERED: DOCUSATE SODIUM 250 MG CAPSULE PO SCH (09:00)
[2018-06-18] MEDS: buPROPion XL 150 MG TABLET PO SCH (09:15)
[2018-06-18] MEDS: ASPIRIN CHEW 81 MG TABLET PO SCH (09:15)
[2018-06-18] MEDS: FUROSEMIDE 20 MG TABLET PO SCH (09:16)
[2018-06-18] MEDS: POLYETHYLENE GLYCOL 3350 17 GM PACKET PO SCH (09:16)
[2018-06-18] MEDS: SPIRONOLACTONE 25 MG TABLET PO SCH (09:17)
[2018-06-18] MEDS: SERTRALINE 50 MG TABLET PO SCH (09:17)
[2018-06-18] MEDS: diltiaZEM CD 120 MG CAPSULE PO SCH ×2 (09:17→21:23)
[2018-06-18] MEDS: AMIODARONE 200 MG TABLET PO SCH (09:17)
--- NOTE | 2018-06-18 13:18 | PROVIDER PROGRESS NOTE ---
Subjective - Prog Note Date Prog Note Date: 06/18/18 Prog Note Time: 13:18 - Subjective Pt reports feeling: Improved Subjective: Rai is happy with his daily improvement. He denies any new symptoms such as chest pain, insomnia, nausea, vomiting, diarrhea or a new cough. He admits to improvement of his gurgling after starting the Mucsinex. Current Medications - Current Medications Current Medications: Microbiology 06/13/18 07:15 Blood Culture - Final Blood - Right Arm NO GROWTH AFTER 5 DAYS 06/13/18 06:50 Blood Culture - Final Blood NO GROWTH AFTER 5 DAYS 06/13/18 15:45 Respiratory Culture - Final Sputum Aspirate Serratia Marcescens Pseudomonas Aeruginosa Active Medications Amiodarone HCl (Pacerone) 200 mg PO DAILY [facility] Last Admin: 06/18/18 09:17 Dose: 200 mg Aspirin ([place] J[place]ony Aspirin) 81 mg PO DAILY [facility] Last Admin: 06/18/18 09:15 Dose: 81 mg Baclofen (Lioresal) 10 mg PO QID PRN PRN Reason: Spasms Last Admin: 06/18/18 14:20 Dose: 10 mg Bupropion HCl (Wellbutrin Xl) 300 mg PO DAILY [facility] Last Admin: 06/18/18 09:15 Dose: 300 mg Diltiazem HCl (Cardizem Cd) 120 mg PO BID [facility] Last Admin: 06/18/18 09:17 Dose: 120 mg Furosemide (Lasix) 60 mg PO DAILY [facility] Last Admin: 06/18/18 09:16 Dose: 60 mg Gabapentin (Neurontin) 200 mg PO QPM [facility] Last Admin: 06/17/18 20:53 Dose: 200 mg Cefepime HCl 2 gm/ Sodium (Chloride) 100 mls @ 200 mls/hr IV Q8H [facility] Last Infusion: 06/18/18 12:31 Dose: Infused Sodium Chloride (Normal Saline 0.9%) 1,000 mls @ 0 mls/hr IV .Q0M [facility] PRN Reason: TKO Last Admin: 06/16/18 11:20 Dose: 20 mls/hr Insulin Aspart (Novolog) 3 - 11 unit SUBQ 0800,1200,1700,2100 [facility] PRN Reason: Protocol Last Admin: 06/18/18 12:01 Dose: 9 unit Insulin Aspart (Novolog) 30 unit SUBQ TIDWM [facility] PRN Reason: Protocol Last Admin: 06/18/18 12:01 Dose: 30 unit Insulin Glargine (Lantus Solostar) 45 unit SUBQ BID [facility] Last Admin: 06/18/18 08:32 Dose: 45 unit Lidocaine HCl (Xylocaine Uro-Jet 2%) 2.5 ml UR Q6H PRN PRN Reason: PAIN Nystatin (Nystop) 1 applic TOP BID [facility] Oxycodone HCl (Roxicodone) 10 mg PO Q5H PRN PRN Reason: PAIN Last Admin: 06/18/18 14:20 Dose: 10 mg Polyethylene Glycol (Miralax) 17 gm PO DAILY [facility] Last Admin: 06/18/18 09:16 Dose: 17 gm Prednisone (Deltasone) 40 mg PO DAILYWM [facility] Sertraline HCl (Zoloft) 200 mg PO DAILY [facility] Last Admin: 06/18/18 09:17 Dose: 200 mg Sodium Chloride (Normal Saline Flush 0.9%) 10 ml IVP PRN PRN PRN Reason: NEEDED PER PROVIDER ORDERS Last Admin: 06/15/18 05:08 Dose: 10 ml Sodium Chloride (Normal Saline Flush 0.9%) 10 ml IVP 0100,0900,1700 [facility] Last Admin: 06/18/18 09:17 Dose: 10 ml Spironolactone (Aldactone) 25 mg PO DAILY [facility] Last Admin: 06/18/18 09:17 Dose: 25 mg Insulin Glargine,Hum.rec.anlog [Lantus Solostar] 38 unit SUBQ BID 03/20/13 Lovastatin 40 mg PO QPM 03/20/13 metFORMIN [Glucophage] 1,000 mg PO BIDWM 03/20/13 Aspirin 81 mg PO DAILY 10/04/16 Insulin Aspart [Novolog Flexpen] 0 - 20 unit SUBQ TIDWM MDD 90 UNITS 10/04/16 Gabapentin 200 mg PO QPM 03/11/17 Icosapent Ethyl [Vascepa] 2 gm PO BID 03/12/17 Sertraline HCl [Zoloft] 200 mg PO DAILY 03/12/17 Albuterol 3 ml INH BID PRN 05/03/18 Amiodarone HCl 200 mg PO DAILY 05/03/18 Baclofen 10 mg PO QID PRN 05/03/18 Bupropion HCl [Bupropion Xl] 300 mg PO DAILY 05/03/18 Oxycodone HCl 10 mg PO Q5H PRN MDD 50 05/03/18 Diltiazem HCl [Diltiazem ER] 120 mg PO BID 06/13/18 Multivitamin [Theragran] 1 tab PO DAILY 06/13/18 [place]-3 Acid Ethyl Esters [Lovaza] 1 gm PO BID 06/13/18 Calcium Citrate/Vitamin D3 [Calcium Citrate-Vit D3 Tablet] 2 tab PO DAILY Cinnamon Bark [Cinnamon] 500 PO DAILY 06/17/18 Cranberry Fruit Extract [Cranberry] 300 mg PO DAILY 06/17/18 Garlic 1,000 mg PO DAILY 06/17/18 Objective - Vital Signs/Intake & Output Reviewed Vital Signs: Yes Vital Signs: Vital Signs x48h Temp Pulse Resp BP Pulse Ox 06/18/18 07:59 36.6 C 83 19 129/71 96 Intake & Output: Intake & Output 06/15/18 06/16/18 06/17/18 06/18/18 23:59 23:59 23:59 23:59 Intake Total 3725 2780 2870 880 Output Total 8775 8750 8800 3475 Balance -5050 -5970 -5930 -2595 - Objective General Appearance: positive: No acute distress, Alert Eyes Bilateral: positive: Normal inspection, PERRL Eyes: OU Conjunctivae pale ENT: positive: ENT inspection nml, Pharynx nml, No signs of dehydration, Dry mucous membranes Neck: positive: Nml inspection, Thyroid nml, No JVD, Trachea midline (Chronic tracheostomy in place with no s/s of infection.) Respiratory: positive: Chest non-tender, No respiratory distress, Other ( diminished throughout) Cardiovascular: positive: No gallop, Irregularly irregular, Systolic murmur Peripheral Pulses: 1+ Radial (R), 1+ Radial (L) Abdomen: positive: Non-tender, Nml bowel sounds, Other (obese, soft) Back: positive: Nml inspection Skin: positive: No rash, Warm, Dry, Decubitus (stage I-not open, ongoing Q2H turns.) Extremities: positive: Non-tender, Pedal edema (loss of function BLE, chronic edema BLE-moderate), Joint swelling Neurologic/Psychiatric: positive: Oriented x3, CN's nml (2-12), Motor nml, Sensation nml, Depressed mood/affect Reflexes: Bicep (R): 2+, Bicep (L): 3+ - Lab Results Fish Bones: 06/18/18 05:20 06/18/18 05:20 Other Labs: Lab Results x24hrs 06/18/18 06/18/18 06/18/18 Range/Units 05:20 05:20 05:20 WBC 14.3 H (4.8-10.8) x10^3/uL RBC 5.06 (4.70-6.10) 10^6/uL Hgb 14.4 (14.0-18.0) g/dL Hct 43.8 (42.0-52.0) % MCV 86.5 (80.0-94.0) fL MCH 28.5 (27.0-31.0) pg MCHC 33.0 (32.0-36.0) g/dL RDW 14.1 (12.0-15.0) % Plt Count 237 (130-450) 10^3/uL MPV 7.8 (7.4-11.4) fL Neut # (Auto) 9.7 H (1.5-6.6) 10^3/uL Lymph # (Auto) 3.3 (1.5-3.5) 10^3/uL [place] # (Auto) 1.2 H (0.0-1.0) 10^3/uL Eos # (Auto) 0.1 (0.0-0.7) 10^3/uL Baso # (Auto) 0.1 (0.0-0.1) 10^3/uL Absolute Nucleated RBC 0.02 x10^3/uL Nucleated RBC % 0.1 /100WBC Sodium 136 (135-145) mmol/L Potassium 3.8 (3.5-5.0) mmol/L Chloride 90 L (101-111) mmol/L Carbon Dioxide 37 H (21-32) mmol/L Anion Gap 9.0 (6-13) BUN 27 H (6-20) mg/dL Creatinine 0.8 (0.6-1.2) mg/dL Estimated GFR (MDRD) 99 (>89) Glucose 252 H (70-100) mg/dL POC Whole Bld Glucose (70 - 100) mg/dL Calcium 9.0 (8.5-10.3) mg/dL Total Bilirubin 0.6 (0.2-1.0) mg/dL AST 50 H (10-42) IU/L ALT 95 H (10-60) IU/L Alkaline Phosphatase 70 (42-121) IU/L B-Natriuretic Peptide 29 (5-100) pg/mL Total Protein 6.2 L (6.7-8.2) g/dL Albumin 3.2 (3.2-5.5) g/dL Globulin 3.0 (2.1-4.2) g/dL Albumin/Globulin Ratio 1.1 (1.0-2.2) 06/17/18 06/17/18 Range/Units 20:35 16:42 WBC (4.8-10.8) x10^3/uL RBC (4.70-6.10) 10^6/uL Hgb (14.0-18.0) g/dL Hct (42.0-52.0) % MCV (80.0-94.0) fL MCH (27.0-31.0) pg MCHC (32.0-36.0) g/dL RDW (12.0-15.0) % Plt Count (130-450) 10^3/uL MPV (7.4-11.4) fL Neut # (Auto) (1.5-6.6) 10^3/uL Lymph # (Auto) (1.5-3.5) 10^3/uL [place] # (Auto) (0.0-1.0) 10^3/uL Eos # (Auto) (0.0-0.7) 10^3/uL Baso # (Auto) (0.0-0.1) 10^3/uL Absolute Nucleated RBC x10^3/uL Nucleated RBC % /100WBC Sodium (135-145) mmol/L Potassium (3.5-5.0) mmol/L Chloride (101-111) mmol/L Carbon Dioxide (21-32) mmol/L Anion Gap (6-13) BUN (6-20) mg/dL Creatinine (0.6-1.2) mg/dL Estimated GFR (MDRD) (>89) Glucose (70-100) mg/dL POC Whole Bld Glucose 379 H 394 H (70 - 100) mg/dL Calcium (8.5-10.3) mg/dL Total Bilirubin (0.2-1.0) mg/dL AST (10-42) IU/L ALT (10-60) IU/L Alkaline Phosphatase (42-121) IU/L B-Natriuretic Peptide (5-100) pg/mL Total Protein (6.7-8.2) g/dL Albumin (3.2-5.5) g/dL Globulin (2.1-4.2) g/dL Albumin/Globulin Ratio (1.0-2.2) ABX Reporting Has patient been on IV antibiotics over the past 48 hours?: Yes Assessment/Plan - Problem List (1) Pneumonia Impression: Imaging on admission included a chest x-ray and a chest CT, which showed no pulmonary emboli, atelectasis at the left lung base, right upper lobe pneumonitis with patchy air trapping. At the time of admission he reported that his disposable inner trach cannula was stained the color of the cough drops and he worries about aspiration. WBC count today was 14.3, increased from 12. I will reduce the oral prednisone from 60 daily to 40 mg PO daily. He has been afebrile since admission and has been 90-95% on a trach humidified mask. The patient's body habitus does not allow for efficient pulmonary toileting. Sputum culture results have grown out Serratia Marcescens & pseudomonas aeruginosa, which is Cefepime covers BOTH. He is on day #5 of 7 treatment. There are no oral equivalents for both patogens, so this will prolong his hospital stay past 4-days. I have added Mucsinex. Plan: Continue to monitor and treat his pneumonia/symptoms. Qualifiers: Pneumonia type: aspiration pneumonia Laterality: right Lung location: upper lobe of lung (2) Super obesity Impression: The patient's weight has been stable at 210 kg and on imaging has a lap band. He has underlying depression and chronic pain. He is immobile due to his weight , and his recent ankle fracture. He states that when he is at home and has his crutch, he is able to pivot to his wheel chair. Physical therapy is on hold until closer to discharge to evaluate for home services. The patient admits to having a lap band, but was non-compliant about follow up, so it was never adjusted which may have led to smaller meals. He states that his care givers are being more aware of smaller portions and he is encouraged about making better efforts toward weight loss. After speaking with the patient's mother, she confirmed that Rai would be very anglican about his daily bed PT, and at home would frequently dangle during the day to work on the computer. Plan: Recommend a weight reduction program as per PCP and a lap band adjustment. 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 He refuses to explore a cuffed version and states that this would not allow him to speak. He reports that he most recently had a sore throat at home, used lozenges, and noticed that his inner trach cannula was stained red after sucking on the lozenges. I spoke with his mother via phone for a medical update who states that the patient previously went to [facility] to see Dr. Sienna Malik who would do frequent tracheostomy changes. Since Rai as fractured his ankle, this has not been possible and the patient's home care nurse took over this duty. Plan: Suggest out patient ENT follow up in prevention of aspiration events. (4) Pressure ulcer of sacral region, unspecified stage Impression: The patient is known to have a chronic sacral ulcer that causes him discomfort. He admits to an improvement as he has recently obtained a different bed at home to help improve his chronic pressure ulcers. It has not been necessary to involve our [facility] department and the patient denies increased pain to this area. Plan: Continue Q2H turns, frequent nursing care and PT to evaluate. Qualifiers: Pressure injury stage: stage 1 Qualified Code(s): L89.151 - Pressure ulcer of sacral region, stage 1 (5) Chronic pain syndrome Impression: The patient has chronic joint pain for good reasons and the main reason is his super obesity. His size has taken a toll on his joints, in particular his back , hips and knees. The patient is prescribed; Baclofen, gabapentin, and oxycodone at home which continue while hospitalized. I have re-stated the reasons why adding more pain medications is not ideal, and he agrees. He has no complaints of increased pain today upon exam. Plan: Continue home meds and watch for over sedation. (6) Diabetes type 2, uncontrolled Impression: This morning he had a very elevated early AM sugar of 197. He is prescribed Lantus, metformin, and aspart at home. He proves to be very advanced in his insulin resistance with dosing of his Lantus at 38 units BID, and triple that amount at mealtimes of the Aspart. Metformin is on hold as hospital protocol. The patient feels frustrated that his blood sugars remain elevated and needs to be reminded of the current steroids as a possible culprit. He continues on oral Prednisone, which may contribute to his prolonged hyperglycemia. Plan: Daily labs, continue lantus, aspart, blood sugar checks and SSI with mealtime dosing. (7) Chronic atrial fibrillation Impression: The patient is prescribed amioderone, diltiazem at home for his chronic atrial fibrillation that he has had for several years. 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 Vital sign charting indicate rates in the 80's. The patient denies palpitations or chest tightness. Plan: continue medications and monitor vital signs. (8) Pulmonary hypertension Impression: The patient has severe RA enlargement, and moderately elevated right heart pressures. He has evidence of this by his increased abdominal girth, and chronic BLE edema. His home dosing of lasix and Spironolactone was resumed as his pneumonia is thought to be in good control and his fluid balance is over, with increased weights and increased generalized edema. Plan: Continue meds, daily weights and monitor fluid status/respiratory status.
[2018-06-18] MEDS: BACLOFEN 10 MG TABLET PO PRN (14:20)
[2018-06-18] MEDS: NYSTATIN POWDER 15 GM TOP SCH ×2 (17:18→21:24)
[2018-06-18] MEDS: SODIUM CHLORIDE 0.9% 1,000 ML IV SCH (19:06)
[2018-06-18] MEDS: GABAPENTIN 100 MG CAPSULE PO SCH (21:23)
[2018-06-19] MEDS: BACLOFEN 10 MG TABLET PO PRN ×3 (00:18→14:35)
[2018-06-19] MEDS: oxyCODONE 5 MG TABLET PO PRN ×4 (01:08→20:16)
[2018-06-19] MEDS: SODIUM CHLORIDE FLUSH 0.9% 10 ML SYRINGE IVP SCH ×3 (01:47→15:50)
[2018-06-19] MEDS: CEFEPIME 2 GM in SODIUM CHLORIDE 0.9% MINIBAG 100 ML IV SCH ×3 (03:17→19:09)
[2018-06-19 05:49] LABS: BASOPHILS % (AUTO) 0.2 %; EOSINOPHILS # (AUTO) 0.2 10^3/uL (0.0-0.7); EOSINOPHILS % (AUTO) 1.1 %; HGB - HEMOGLOBIN 14.5 g/dL (14.0-18.0); LYMPHOCYTES # (AUTO) 3.4 10^3/uL (1.5-3.5); LYMPHOCYTES % (AUTO) 22.8 %; MEAN CORPUSCULAR HEMOGLOBIN 28.4 pg (27.0-31.0); MEAN CORPUSCULAR HGB CONC 32.7 g/dL (32.0-36.0); MEAN PLATELET VOLUME 7.7 fL (7.4-11.4); MONOCYTES # (AUTO) 1.1 10^3/uL (0.0-1.0); MONOCYTES % (AUTO) 7.6 %; NEUTROPHILS # (AUTO) 10.1 10^3/uL (1.5-6.6); NEUTROPHILS % (AUTO) 68.3 %; PLT - PLATELET COUNT 240 10^3/uL (130-450); RED BLOOD COUNT 5.11 10^6/uL (4.70-6.10); RED CELL DISTRIBUTION WIDTH 14.1 % (12.0-15.0); WHITE BLOOD COUNT 14.8 x10^3/uL (4.8-10.8)
[2018-06-19 06:04] LABS: ALBUMIN 3.1 g/dL (3.2-5.5); BILIRUBIN,TOTAL 0.4 mg/dL (0.2-1.0); CALCIUM 8.9 mg/dL (8.5-10.3); CREATININE 0.8 mg/dL (0.6-1.2); TOTAL PROTEIN 6.1 g/dL (6.7-8.2)
[2018-06-19] MEDS ORDERED: predniSONE 20 MG TABLET PO SCH (08:00)
[2018-06-19] MEDS: predniSONE 20 MG TABLET PO SCH (08:38)
[2018-06-19] MEDS: INSULIN ASPART 300 UNIT/3 ML PEN SUBQ SCH ×7 (08:40→20:34)
[2018-06-19] MEDS: POLYETHYLENE GLYCOL 3350 17 GM PACKET PO SCH (10:39)
[2018-06-19] MEDS: AMIODARONE 200 MG TABLET PO SCH (10:39)
[2018-06-19] MEDS: buPROPion XL 150 MG TABLET PO SCH (10:40)
[2018-06-19] MEDS: SPIRONOLACTONE 25 MG TABLET PO SCH (10:42)
[2018-06-19] MEDS: ASPIRIN CHEW 81 MG TABLET PO SCH (10:42)
[2018-06-19] MEDS: FUROSEMIDE 20 MG TABLET PO SCH (10:42)
[2018-06-19] MEDS: SERTRALINE 50 MG TABLET PO SCH (10:42)
[2018-06-19] MEDS: INSULIN GLARGINE 300 UNIT/3 ML PEN SUBQ SCH ×2 (10:42→20:34)
[2018-06-19] MEDS: diltiaZEM CD 120 MG CAPSULE PO SCH ×2 (10:42→20:33)
[2018-06-19] MEDS: CHOLECALCIFEROL 1,000 UNIT TABLET PO SCH (11:29)
--- NOTE | 2018-06-19 13:13 | PROVIDER PROGRESS NOTE ---
Subjective - Prog Note Date Prog Note Date: 06/19/18 - Subjective Pt reports feeling: Improved Subjective: pt report his symptoms has improved. No fever, chill, cough. pt state he got re- infected pneumonia because of short period of time stayed in the hospital. I called ID line, reported pt's medical condition. I am waiting for recommendations from ID, will follow up for pt's D/C plan Current Medications - Current Medications Current Medications: Active Medications Amiodarone HCl (Pacerone) 200 mg PO DAILY [facility] Last Admin: 06/19/18 10:39 Dose: 200 mg Aspirin ([place] Jhony Aspirin) 81 mg PO DAILY [facility] Last Admin: 06/19/18 10:42 Dose: 81 mg Baclofen (Lioresal) 10 mg PO QID PRN PRN Reason: Spasms Last Admin: 06/19/18 08:39 Dose: 10 mg Bupropion HCl (Wellbutrin Xl) 300 mg PO DAILY [facility] Last Admin: 06/19/18 10:40 Dose: 300 mg Cholecalciferol (Vitamin D3) 4,000 unit PO DAILY [facility] Last Admin: 06/19/18 11:29 Dose: 4,000 unit Diltiazem HCl (Cardizem Cd) 120 mg PO BID [facility] Last Admin: 06/19/18 10:42 Dose: 120 mg Furosemide (Lasix) 60 mg PO DAILY [facility] Last Admin: 06/19/18 10:42 Dose: 60 mg Gabapentin (Neurontin) 200 mg PO QPM [facility] Last Admin: 06/18/18 21:23 Dose: 200 mg Cefepime HCl 2 gm/ Sodium (Chloride) 100 mls @ 200 mls/hr IV Q8H [facility] Last Admin: 06/19/18 11:28 Dose: 200 mls/hr Sodium Chloride (Normal Saline 0.9%) 1,000 mls @ 0 mls/hr IV .Q0M [facility] PRN Reason: TKO Last Admin: 06/18/18 19:06 Dose: 20 mls/hr Insulin Aspart (Novolog) 3 - 11 unit SUBQ 0800,1200,1700,2100 [facility] PRN Reason: Protocol Last Admin: 06/19/18 11:52 Dose: 7 unit Insulin Aspart (Novolog) 35 unit SUBQ TIDWM [facility] PRN Reason: Protocol Last Admin: 06/19/18 11:53 Dose: 35 unit Insulin Glargine (Lantus Solostar) 50 unit SUBQ BID [facility] Lidocaine HCl (Xylocaine Uro-Jet 2%) 2.5 ml UR Q6H PRN PRN Reason: PAIN Nystatin (Nystop) 1 applic TOP BID [facility] Last Admin: 06/18/18 21:24 Dose: 1 applic Oxycodone HCl (Roxicodone) 10 mg PO Q5H PRN PRN Reason: PAIN Last Admin: 06/19/18 08:39 Dose: 10 mg Polyethylene Glycol (Miralax) 17 gm PO DAILY [facility] Last Admin: 06/19/18 10:39 Dose: 17 gm Prednisone (Deltasone) 30 mg PO DAILYWM [facility] Last Admin: 06/19/18 08:38 Dose: 30 mg Sertraline HCl (Zoloft) 200 mg PO DAILY [facility] Last Admin: 06/19/18 10:42 Dose: 200 mg Sodium Chloride (Normal Saline Flush 0.9%) 10 ml IVP PRN PRN PRN Reason: NEEDED PER PROVIDER ORDERS Last Admin: 06/15/18 05:08 Dose: 10 ml Sodium Chloride (Normal Saline Flush 0.9%) 10 ml IVP 0100,0900,1700 [facility] Last Admin: 06/19/18 11:28 Dose: Not Given Spironolactone (Aldactone) 25 mg PO DAILY [facility] Last Admin: 06/19/18 10:42 Dose: 25 mg Insulin Glargine,Hum.rec.anlog [Lantus Solostar] 38 unit SUBQ BID 03/20/13 Lovastatin 40 mg PO QPM 03/20/13 metFORMIN [Glucophage] 1,000 mg PO BIDWM 03/20/13 Aspirin 81 mg PO DAILY 10/04/16 Insulin Aspart [Novolog Flexpen] 0 - 20 unit SUBQ TIDWM [facility] 90 UNITS 10/04/16 Gabapentin 200 mg PO QPM 03/11/17 Icosapent Ethyl [Vascepa] 2 gm PO BID 03/12/17 Sertraline HCl [Zoloft] 200 mg PO DAILY 03/12/17 Albuterol 3 ml INH BID PRN 05/03/18 Amiodarone HCl 200 mg PO DAILY 05/03/18 Baclofen 10 mg PO QID PRN 05/03/18 Bupropion HCl [Bupropion Xl] 300 mg PO DAILY 05/03/18 Oxycodone HCl 10 mg PO Q5H PRN MDD 50 05/03/18 Diltiazem HCl [Diltiazem ER] 120 mg PO BID 06/13/18 Multivitamin [Theragran] 1 tab PO DAILY 06/13/18 [place]-3 Acid Ethyl Esters [Lovaza] 1 gm PO BID 06/13/18 Calcium Citrate/Vitamin D3 [Calcium Citrate-Vit D3 Tablet] 2 tab PO DAILY Cinnamon Bark [Cinnamon] 500 PO DAILY 06/17/18 Cranberry Fruit Extract [Cranberry] 300 mg PO DAILY 06/17/18 Garlic 1,000 mg PO DAILY 06/17/18 Objective - Vital Signs/Intake & Output Reviewed Vital Signs: Yes Vital Signs: Vital Signs x48h Temp Pulse Resp BP Pulse Ox 06/19/18 09:10 36.6 C 84 20 132/76 H 94 Intake & Output: Intake & Output 06/16/18 06/17/18 06/18/18 06/19/18 23:59 23:59 23:59 23:59 Intake Total 2780 2870 2980 1550 Output Total 8750 8800 6675 3450 Balance -5970 -5930 -3695 -1900 - Objective General Appearance: positive: No acute distress, Alert. negative: Lethargic Eyes Bilateral: positive: Normal inspection, PERRL, No lid inflammation, Conjunctivae nml ENT: positive: No signs of dehydration, Other (pt is with trachostomy). negative: Purulent nasal drainage, Pharyngeal erythema, Oral lesions Neck: positive: Thyroid nml, No JVD. negative: Thyromegaly, Lymphadenopathy (R) , Lymphadenopathy (L), Stiff neck, Swelling/bruising, Tracheal deviation Respiratory: positive: Chest non-tender, No respiratory distress, Breath sounds nml. negative: Wheezes, Rales, Rhonchi Cardiovascular: positive: Regular rate & rhythm, No murmur, No gallop. negative : Irregularly irregular, Extrasystoles, Tachycardia, Bradycardia, JVD present, Systolic murmur, Diastolic murmur Peripheral Pulses: 2+ Radial (R), 2+ Radial (L), 2+ Dorsalis pedis (R), 2+ Dorsalis pedis (L) Abdomen: positive: Non-tender, No organomegaly, Nml bowel sounds. negative: Tenderness, Guarding, Rebound Back: positive: Nml inspection. negative: CVA tenderness (R), CVA tenderness (L ) Skin: positive: Color nml, No rash, Warm, Dry. negative: Cyanosis, Diaphoresis , Pallor Extremities: positive: Non-tender, Full ROM, Nml appearance. negative: Calf tenderness, Elda's sign/cords Neurologic/Psychiatric: positive: Oriented x3, Sensation nml, Mood/affect nml. negative: Weakness, Sensory loss, Facial droop, Slurred/abnml speech, Depressed mood/affect - Lab Results Fish Bones: 06/19/18 05:13 06/19/18 05:13 Other Labs: Lab Results x24hrs 06/19/18 06/19/18 06/19/18 Range/Units 11:35 07:44 05:13 WBC (4.8-10.8) x10^3/uL RBC (4.70-6.10) 10^6/uL Hgb (14.0-18.0) g/dL Hct (42.0-52.0) % MCV (80.0-94.0) fL MCH (27.0-31.0) pg MCHC (32.0-36.0) g/dL RDW (12.0-15.0) % Plt Count (130-450) 10^3/uL MPV (7.4-11.4) fL Neut # (Auto) (1.5-6.6) 10^3/uL Lymph # (Auto) (1.5-3.5) 10^3/uL Morton # (Auto) (0.0-1.0) 10^3/uL Eos # (Auto) (0.0-0.7) 10^3/uL Baso # (Auto) (0.0-0.1) 10^3/uL Absolute Nucleated RBC x10^3/uL Nucleated RBC % /100WBC Sodium 137 (135-145) mmol/L Potassium 3.9 (3.5-5.0) mmol/L Chloride 91 L (101-111) mmol/L Carbon Dioxide 39 H* (21-32) mmol/L Anion Gap 7.0 (6-13) BUN 25 H (6-20) mg/dL Creatinine 0.8 (0.6-1.2) mg/dL Estimated GFR (MDRD) 99 (>89) Glucose 293 H (70-100) mg/dL POC Whole Bld Glucose 250 H 240 H (70 - 100) mg/dL Calcium 8.9 (8.5-10.3) mg/dL Total Bilirubin 0.4 (0.2-1.0) mg/dL AST 37 (10-42) IU/L ALT 83 H (10-60) IU/L Alkaline Phosphatase 68 (42-121) IU/L Total Protein 6.1 L (6.7-8.2) g/dL Albumin 3.1 L (3.2-5.5) g/dL Globulin 3.0 (2.1-4.2) g/dL Albumin/Globulin Ratio 1.0 (1.0-2.2) 06/19/18 06/18/18 06/18/18 Range/Units 05:13 20:23 16:38 WBC 14.8 H (4.8-10.8) x10^3/uL RBC 5.11 (4.70-6.10) 10^6/uL Hgb 14.5 (14.0-18.0) g/dL Hct 44.4 (42.0-52.0) % MCV 87.0 (80.0-94.0) fL MCH 28.4 (27.0-31.0) pg MCHC 32.7 (32.0-36.0) g/dL RDW 14.1 (12.0-15.0) % Plt Count 240 (130-450) 10^3/uL MPV 7.7 (7.4-11.4) fL Neut # (Auto) 10.1 H (1.5-6.6) 10^3/uL Lymph # (Auto) 3.4 (1.5-3.5) 10^3/uL Morton # (Auto) 1.1 H (0.0-1.0) 10^3/uL Eos # (Auto) 0.2 (0.0-0.7) 10^3/uL Baso # (Auto) 0.0 (0.0-0.1) 10^3/uL Absolute Nucleated RBC 0.00 x10^3/uL Nucleated RBC % 0.0 /100WBC Sodium (135-145) mmol/L Potassium (3.5-5.0) mmol/L Chloride (101-111) mmol/L Carbon Dioxide (21-32) mmol/L Anion Gap (6-13) BUN (6-20) mg/dL Creatinine (0.6-1.2) mg/dL Estimated GFR (MDRD) (>89) Glucose (70-100) mg/dL POC Whole Bld Glucose 320 H 356 H (70 - 100) mg/dL Calcium (8.5-10.3) mg/dL Total Bilirubin (0.2-1.0) mg/dL AST (10-42) IU/L ALT (10-60) IU/L Alkaline Phosphatase (42-121) IU/L Total Protein (6.7-8.2) g/dL Albumin (3.2-5.5) g/dL Globulin (2.1-4.2) g/dL Albumin/Globulin Ratio (1.0-2.2) 06/18/18 06/18/18 Range/Units 11:51 08:00 WBC (4.8-10.8) x10^3/uL RBC (4.70-6.10) 10^6/uL Hgb (14.0-18.0) g/dL Hct (42.0-52.0) % MCV (80.0-94.0) fL MCH (27.0-31.0) pg MCHC (32.0-36.0) g/dL RDW (12.0-15.0) % Plt Count (130-450) 10^3/uL MPV (7.4-11.4) fL Neut # (Auto) (1.5-6.6) 10^3/uL Lymph # (Auto) (1.5-3.5) 10^3/uL Morton # (Auto) (0.0-1.0) 10^3/uL Eos # (Auto) (0.0-0.7) 10^3/uL Baso # (Auto) (0.0-0.1) 10^3/uL Absolute Nucleated RBC x10^3/uL Nucleated RBC % /100WBC Sodium (135-145) mmol/L Potassium (3.5-5.0) mmol/L Chloride (101-111) mmol/L Carbon Dioxide (21-32) mmol/L Anion Gap (6-13) BUN (6-20) mg/dL Creatinine (0.6-1.2) mg/dL Estimated GFR (MDRD) (>89) Glucose (70-100) mg/dL POC Whole Bld Glucose 322 H 197 H (70 - 100) mg/dL Calcium (8.5-10.3) mg/dL Total Bilirubin (0.2-1.0) mg/dL AST (10-42) IU/L ALT (10-60) IU/L Alkaline Phosphatase (42-121) IU/L Total Protein (6.7-8.2) g/dL Albumin (3.2-5.5) g/dL Globulin (2.1-4.2) g/dL Albumin/Globulin Ratio (1.0-2.2) ABX Reporting Has patient been on IV antibiotics over the past 48 hours?: Yes Assessment/Plan - Problem List (1) Pneumonia Impression: Impression: 06/19, pt report he feel he had much improvement since treated in hospital. I called ID line for recommendation for d/c plan. I am waiting for, and will call again if I did not get call back from [facility] ID line continue cefepime follow up ID recommends Imaging on admission included a chest x-ray and a chest CT, which showed no pulmonary emboli, atelectasis at the left lung base, right upper lobe pneumonitis with patchy air trapping. At the time of admission he reported that his disposable inner trach cannula was stained the color of the cough drops and he worries about aspiration. WBC count today was 14.3, increased from 12. I will reduce the oral prednisone from 60 daily to 40 mg PO daily. He has been afebrile since admission and has been 90-95% on a trach humidified mask. The patient's body habitus does not allow for efficient pulmonary toileting. Sputum culture results have grown out Serratia Marcescens & pseudomonas aeruginosa, which is Cefepime covers BOTH. He is on day #5 of 7 treatment. There are no oral equivalents for both patogens, so this will prolong his hospital stay past 4-days. I have added Mucsinex. Plan: Continue to monitor and treat his pneumonia/symptoms. (2) Super obesity Impression: 06/19 discuss with pt, encourage pt loss of weight, pt agree to do that. The patient's weight has been stable at 210 kg and on imaging has a lap band. He has underlying depression and chronic pain. He is immobile due to his weight , and his recent ankle fracture. He states that when he is at home and has his crutch, he is able to pivot to his wheel chair. Physical therapy is on hold until closer to discharge to evaluate for home services. The patient admits to having a lap band, but was non-compliant about follow up, so it was never adjusted which may have led to smaller meals. He states that his care givers are being more aware of smaller portions and he is encouraged about making better efforts toward weight loss. After speaking with the patient's mother, she confirmed that Rai would be very anglican about his daily bed PT, and at home would frequently dangle during the day to work on the computer. Plan: Recommend a weight reduction program as per PCP and a lap band adjustment. (3) Tracheostomy dependence Impression: 06/19 educate pt for tracheostomy care The patient has an un-cuffed XL, disposable, chronic tracheostomy for his vocal cord paralysis which occurred as a consequence of his brain aneurysm. He refuses to explore a cuffed version and states that this would not allow him to speak. He reports that he most recently had a sore throat at home, used lozenges, and noticed that his inner trach cannula was stained red after sucking on the lozenges. I spoke with his mother via phone for a medical update who states that the patient previously went to [facility] to see Dr. Sienna Malik who would do frequent tracheostomy changes. Since Rai as fractured his ankle, this has not been possible and the patient's home care nurse took over this duty. Plan: Suggest out patient ENT follow up in prevention of aspiration events. (4) Pressure ulcer of sacral region, unspecified stage Impression: 06/19 encourage pt ambulate, Q2H turns, nursing care, and PT/OT evaluation and treatment The patient is known to have a chronic sacral ulcer that causes him discomfort. He admits to an improvement as he has recently obtained a different bed at home to help improve his chronic pressure ulcers. It has not been necessary to involve our [facility] department and the patient denies increased pain to this area. Plan: Continue Q2H turns, frequent nursing care and PT to evaluate. (5) Chronic pain syndrome Impression: The patient has chronic joint pain for good reasons and the main reason is his super obesity. His size has taken a toll on his joints, in particular his back , hips and knees. The patient is prescribed; Baclofen, gabapentin, and oxycodone at home which continue while hospitalized. I have re-stated the reasons why adding more pain medications is not ideal, and he agrees. He has no complaints of increased pain today upon exam. Plan: Continue home meds and watch for over sedation. (6) Diabetes type 2, uncontrolled Impression: 06/19 pt continue to have hyperglycemia, increase Lantus to 40 unit bid This morning he had a very elevated early AM sugar of 197. He is prescribed Lantus, metformin, and aspart at home. He proves to be very advanced in his insulin resistance with dosing of his Lantus at 38 units BID, and triple that amount at mealtimes of the Aspart. Metformin is on hold as hospital protocol. The patient feels frustrated that his blood sugars remain elevated and needs to be reminded of the current steroids as a possible culprit. He continues on oral Prednisone, which may contribute to his prolonged hyperglycemia. Plan: Daily labs, continue lantus, aspart, blood sugar checks and SSI with mealtime dosing. (7) Chronic atrial fibrillation stable, continue home meds, tele, vital monitor Qualifiers: Pneumonia type: aspiration pneumonia Laterality: right Lung location: upper lobe of lung
[2018-06-19] MEDS: NYSTATIN POWDER 15 GM TOP SCH ×2 (14:34→20:34)
[2018-06-19] MEDS: SODIUM CHLORIDE 0.9% 1,000 ML IV SCH ×2 (14:35→14:36)
[2018-06-19] MEDS: GABAPENTIN 100 MG CAPSULE PO SCH (20:33)
[2018-06-20] MEDS: oxyCODONE 5 MG TABLET PO PRN ×5 (01:15→23:58)
[2018-06-20] MEDS: CEFEPIME 2 GM in SODIUM CHLORIDE 0.9% MINIBAG 100 ML IV SCH ×3 (03:01→19:18)
[2018-06-20 07:56] LABS: BASOPHILS # (AUTO) 0.1 10^3/uL (0.0-0.1); BASOPHILS % (AUTO) 0.6 %; EOSINOPHILS # (AUTO) 0.3 10^3/uL (0.0-0.7); EOSINOPHILS % (AUTO) 1.7 %; HGB - HEMOGLOBIN 14.9 g/dL (14.0-18.0); LYMPHOCYTES # (AUTO) 4.1 10^3/uL (1.5-3.5); LYMPHOCYTES % (AUTO) 24.7 %; MEAN CORPUSCULAR HEMOGLOBIN 28.5 pg (27.0-31.0); MEAN CORPUSCULAR HGB CONC 32.9 g/dL (32.0-36.0); MEAN CORPUSCULAR VOLUME 86.8 fL (80.0-94.0); MEAN PLATELET VOLUME 7.5 fL (7.4-11.4); MONOCYTES # (AUTO) 1.2 10^3/uL (0.0-1.0); MONOCYTES % (AUTO) 7.5 %; NEUTROPHILS # (AUTO) 10.8 10^3/uL (1.5-6.6); NEUTROPHILS % (AUTO) 65.5 %; PLT - PLATELET COUNT 251 10^3/uL (130-450); RED BLOOD COUNT 5.21 10^6/uL (4.70-6.10); RED CELL DISTRIBUTION WIDTH 13.9 % (12.0-15.0); WHITE BLOOD COUNT 16.5 x10^3/uL (4.8-10.8)
[2018-06-20] MEDS: predniSONE 20 MG TABLET PO SCH (08:13)
[2018-06-20] MEDS: INSULIN ASPART 300 UNIT/3 ML PEN SUBQ SCH ×7 (08:14→21:18)
[2018-06-20 08:25] LABS: ALBUMIN 3.2 g/dL (3.2-5.5); ALBUMIN/GLOBULIN RATIO 1.1 (1.0-2.2); BILIRUBIN,TOTAL 0.5 mg/dL (0.2-1.0); CREATININE 0.7 mg/dL (0.6-1.2); TOTAL PROTEIN 6.1 g/dL (6.7-8.2)
[2018-06-20] MEDS ORDERED: VANCOMYCIN PER PHARMACY 2 GM in SODIUM CHLORIDE 0.9% 250 ML IV SCH (10:00)
[2018-06-20] MEDS: SODIUM CHLORIDE FLUSH 0.9% 10 ML SYRINGE IVP SCH ×3 (10:10→17:34)
[2018-06-20] MEDS: CHOLECALCIFEROL 1,000 UNIT TABLET PO SCH (10:21)
[2018-06-20] MEDS: POLYETHYLENE GLYCOL 3350 17 GM PACKET PO SCH (10:21)
[2018-06-20] MEDS: buPROPion XL 150 MG TABLET PO SCH (10:21)
[2018-06-20] MEDS: SERTRALINE 50 MG TABLET PO SCH (10:21)
[2018-06-20] MEDS: diltiaZEM CD 120 MG CAPSULE PO SCH ×2 (10:21→21:39)
[2018-06-20] MEDS: AMIODARONE 200 MG TABLET PO SCH (10:21)
[2018-06-20] MEDS: FUROSEMIDE 20 MG TABLET PO SCH (10:21)
[2018-06-20] MEDS: SPIRONOLACTONE 25 MG TABLET PO SCH (10:22)
[2018-06-20] MEDS: ASPIRIN CHEW 81 MG TABLET PO SCH (10:22)
[2018-06-20] MEDS: NYSTATIN POWDER 15 GM TOP SCH ×2 (10:22→21:39)
[2018-06-20] MEDS: INSULIN GLARGINE 300 UNIT/3 ML PEN SUBQ SCH ×2 (10:23→21:28)
[2018-06-20] MEDS: VANCOMYCIN INJ 2 GM in SODIUM CHLORIDE 0.9% 500 ML IV SCH (12:48)
[2018-06-20] MEDS: BACLOFEN 10 MG TABLET PO PRN ×2 (13:06→23:58)
--- NOTE | 2018-06-20 14:48 | PROVIDER PROGRESS NOTE ---
Subjective - Prog Note Date Prog Note Date: 06/20/18 - Subjective Pt reports feeling: No change Subjective: pt report he is bed-bound, decline to sit up and sit in the chair. Pt denies fever, chill, difficult to breath. No chest pain. Pt's WBC continue to go up, pt report he had pressure ulcer at his buttock area. Current Medications - Current Medications Current Medications: Active Medications Amiodarone HCl (Pacerone) 200 mg PO DAILY [facility] Last Admin: 06/20/18 10:21 Dose: 200 mg Aspirin ([place]hony Aspirin) 81 mg PO DAILY [facility] Last Admin: 06/20/18 10:22 Dose: 81 mg Baclofen (Lioresal) 10 mg PO QID PRN PRN Reason: Spasms Last Admin: 06/20/18 13:06 Dose: 10 mg Bupropion HCl (Wellbutrin Xl) 300 mg PO DAILY [facility] Last Admin: 06/20/18 10:21 Dose: 300 mg Cholecalciferol (Vitamin D3) 4,000 unit PO DAILY [facility] Last Admin: 06/20/18 10:21 Dose: 4,000 unit Diltiazem HCl (Cardizem Cd) 120 mg PO BID [facility] Last Admin: 06/20/18 10:21 Dose: 120 mg Furosemide (Lasix) 60 mg PO DAILY [facility] Last Admin: 06/20/18 10:21 Dose: 60 mg Gabapentin (Neurontin) 200 mg PO QPM [facility] Last Admin: 06/19/18 20:33 Dose: 200 mg Cefepime HCl 2 gm/ Sodium (Chloride) 100 mls @ 200 mls/hr IV Q8H [facility] Last Infusion: 06/20/18 12:20 Dose: Infused Sodium Chloride (Normal Saline 0.9%) 1,000 mls @ 0 mls/hr IV .Q0M [place] PRN Reason: TKO Last Admin: 06/19/18 14:36 Dose: 20 mls/hr Vancomycin HCl 2 gm/ Sodium (Chloride) 500 mls @ 250 mls/hr IV 1130,2330 [facility] Last Admin: 06/20/18 12:48 Dose: 250 mls/hr Insulin Aspart (Novolog) 3 - 11 unit SUBQ 0800,1200,1700,2100 [place] PRN Reason: Protocol Last Admin: 06/20/18 11:50 Dose: 7 unit Insulin Aspart (Novolog) 35 unit SUBQ TIDWM [facility] PRN Reason: Protocol Last Admin: 06/20/18 11:52 Dose: 35 unit Insulin Glargine (Lantus Solostar) 50 unit SUBQ BID [facility] Last Admin: 06/20/18 10:23 Dose: 50 unit Lidocaine HCl (Xylocaine Uro-Jet 2%) 2.5 ml UR Q6H PRN PRN Reason: PAIN Nystatin (Nystop) 1 applic TOP BID [facility] Last Admin: 06/20/18 10:22 Dose: 1 applic Oxycodone HCl (Roxicodone) 10 mg PO Q5H PRN PRN Reason: PAIN Last Admin: 06/20/18 13:06 Dose: 10 mg Polyethylene Glycol (Miralax) 17 gm PO DAILY [facility] Last Admin: 06/20/18 10:21 Dose: 17 gm Sertraline HCl (Zoloft) 200 mg PO DAILY [facility] Last Admin: 06/20/18 10:21 Dose: 200 mg Sodium Chloride (Normal Saline Flush 0.9%) 10 ml IVP PRN PRN PRN Reason: NEEDED PER PROVIDER ORDERS Last Admin: 06/15/18 05:08 Dose: 10 ml Sodium Chloride (Normal Saline Flush 0.9%) 10 ml IVP 0100,0900,1700 [facility] Last Admin: 06/20/18 11:59 Dose: Not Given Spironolactone (Aldactone) 25 mg PO DAILY [facility] Last Admin: 06/20/18 10:22 Dose: 25 mg Insulin Glargine,Hum.rec.anlog [Lantus Solostar] 38 unit SUBQ BID 03/20/13 Lovastatin 40 mg PO QPM 03/20/13 metFORMIN [Glucophage] 1,000 mg PO BIDWM 03/20/13 Aspirin 81 mg PO DAILY 10/04/16 Insulin Aspart [Novolog Flexpen] 0 - 20 unit SUBQ TIDWM MDD 90 UNITS 10/04/16 Gabapentin 200 mg PO QPM 03/11/17 Icosapent Ethyl [Vascepa] 2 gm PO BID 03/12/17 Sertraline HCl [Zoloft] 200 mg PO DAILY 03/12/17 Albuterol 3 ml INH BID PRN 05/03/18 Amiodarone HCl 200 mg PO DAILY 05/03/18 Baclofen 10 mg PO QID PRN 05/03/18 Bupropion HCl [Bupropion Xl] 300 mg PO DAILY 05/03/18 Oxycodone HCl 10 mg PO Q5H PRN MDD 50 05/03/18 Diltiazem HCl [Diltiazem ER] 120 mg PO BID 06/13/18 Multivitamin [Theragran] 1 tab PO DAILY 06/13/18 [place]-3 Acid Ethyl Esters [Lovaza] 1 gm PO BID 06/13/18 Calcium Citrate/Vitamin D3 [Calcium Citrate-Vit D3 Tablet] 2 tab PO DAILY Cinnamon Bark [Cinnamon] 500 PO DAILY 06/17/18 Cranberry Fruit Extract [Cranberry] 300 mg PO DAILY 06/17/18 Garlic 1,000 mg PO DAILY 06/17/18 Objective - Vital Signs/Intake & Output Reviewed Vital Signs: Yes Vital Signs: Vital Signs x48h Temp Pulse Resp BP Pulse Ox 06/20/18 13:00 37.2 C 86 20 150/66 H 96 06/20/18 09:00 36.7 C 85 20 130/78 97 Intake & Output: Intake & Output 06/17/18 06/18/18 06/19/18 06/20/18 23:59 23:59 23:59 23:59 Intake Total 2870 2980 4120.000 1490 Output Total 8800 6675 9500 1450 Balance -5930 -3695 -5380.000 40 - Objective General Appearance: positive: No acute distress, Alert. negative: Lethargic Eyes Bilateral: positive: Normal inspection, PERRL, No lid inflammation, Conjunctivae nml ENT: positive: Pharynx nml, No signs of dehydration. negative: Purulent nasal drainage, Pharyngeal erythema, Oral lesions Neck: positive: Thyroid nml, No JVD. negative: Thyromegaly, Lymphadenopathy (R) , Lymphadenopathy (L), Stiff neck, Swelling/bruising, Tracheal deviation Respiratory: positive: Chest non-tender, No respiratory distress, Breath sounds nml. negative: Wheezes, Rales, Rhonchi Cardiovascular: positive: Regular rate & rhythm, No murmur, No gallop. negative : Irregularly irregular, Extrasystoles, Tachycardia, Bradycardia, JVD present, Systolic murmur, Diastolic murmur Peripheral Pulses: 2+ Radial (R), 2+ Radial (L), 2+ Dorsalis pedis (R), 2+ Dorsalis pedis (L) Abdomen: positive: Non-tender, No organomegaly, Nml bowel sounds, No distention. negative: Tenderness, Guarding, Rebound Back: positive: Nml inspection. negative: CVA tenderness (R), CVA tenderness (L ) Skin: positive: Color nml, No rash, Warm, Dry. negative: Cyanosis, Diaphoresis , Pallor Extremities: positive: Non-tender, Nml appearance. negative: Calf tenderness, Joint swelling, Elda's sign/cords Neurologic/Psychiatric: positive: Oriented x3, Sensation nml. negative: Weakness, Sensory loss, Facial droop, Slurred/abnml speech, Depressed mood/ affect - Lab Results Fish Bones: 06/20/18 07:40 06/20/18 07:40 Other Labs: Lab Results x24hrs 06/20/18 06/20/18 06/20/18 Range/Units 11:34 07:51 07:40 WBC (4.8-10.8) x10^3/uL RBC (4.70-6.10) 10^6/uL Hgb (14.0-18.0) g/dL Hct (42.0-52.0) % MCV (80.0-94.0) fL MCH (27.0-31.0) pg MCHC (32.0-36.0) g/dL RDW (12.0-15.0) % Plt Count (130-450) 10^3/uL MPV (7.4-11.4) fL Neut # (Auto) (1.5-6.6) 10^3/uL Lymph # (Auto) (1.5-3.5) 10^3/uL Walton # (Auto) (0.0-1.0) 10^3/uL Eos # (Auto) (0.0-0.7) 10^3/uL Baso # (Auto) (0.0-0.1) 10^3/uL Absolute Nucleated RBC x10^3/uL Nucleated RBC % /100WBC Sodium 138 (135-145) mmol/L Potassium 4.1 (3.5-5.0) mmol/L Chloride 93 L (101-111) mmol/L Carbon Dioxide 40 H* (21-32) mmol/L Anion Gap 5.0 L (6-13) BUN 21 H (6-20) mg/dL Creatinine 0.7 (0.6-1.2) mg/dL Estimated GFR (MDRD) 115 (>89) Glucose 173 H (70-100) mg/dL POC Whole Bld Glucose 253 H 167 H (70 - 100) mg/dL Calcium 9.0 (8.5-10.3) mg/dL Total Bilirubin 0.5 (0.2-1.0) mg/dL AST 32 (10-42) IU/L ALT 73 H (10-60) IU/L Alkaline Phosphatase 64 (42-121) IU/L Total Protein 6.1 L (6.7-8.2) g/dL Albumin 3.2 (3.2-5.5) g/dL Globulin 2.9 (2.1-4.2) g/dL Albumin/Globulin Ratio 1.1 (1.0-2.2) 06/20/18 06/19/18 06/19/18 Range/Units 07:40 20:24 17:01 WBC 16.5 H (4.8-10.8) x10^3/uL RBC 5.21 (4.70-6.10) 10^6/uL Hgb 14.9 (14.0-18.0) g/dL Hct 45.2 (42.0-52.0) % MCV 86.8 (80.0-94.0) fL MCH 28.5 (27.0-31.0) pg MCHC 32.9 (32.0-36.0) g/dL RDW 13.9 (12.0-15.0) % Plt Count 251 (130-450) 10^3/uL MPV 7.5 (7.4-11.4) fL Neut # (Auto) 10.8 H (1.5-6.6) 10^3/uL Lymph # (Auto) 4.1 H (1.5-3.5) 10^3/uL Walton # (Auto) 1.2 H (0.0-1.0) 10^3/uL Eos # (Auto) 0.3 (0.0-0.7) 10^3/uL Baso # (Auto) 0.1 (0.0-0.1) 10^3/uL Absolute Nucleated RBC 0.00 x10^3/uL Nucleated RBC % 0.0 /100WBC Sodium (135-145) mmol/L Potassium (3.5-5.0) mmol/L Chloride (101-111) mmol/L Carbon Dioxide (21-32) mmol/L Anion Gap (6-13) BUN (6-20) mg/dL Creatinine (0.6-1.2) mg/dL Estimated GFR (MDRD) (>89) Glucose (70-100) mg/dL POC Whole Bld Glucose 290 H 277 H (70 - 100) mg/dL Calcium (8.5-10.3) mg/dL Total Bilirubin (0.2-1.0) mg/dL AST (10-42) IU/L ALT (10-60) IU/L Alkaline Phosphatase (42-121) IU/L Total Protein (6.7-8.2) g/dL Albumin (3.2-5.5) g/dL Globulin (2.1-4.2) g/dL Albumin/Globulin Ratio (1.0-2.2) ABX Reporting Has patient been on IV antibiotics over the past 48 hours?: Yes Assessment/Plan - Problem List (1) Pneumonia Impression: Impression: 06/20 pt can have PO Cipro when pt is d/c pre ID recommends from continue cefepim now until d/c pt decline to ambulate and PT/OT. he state he is bed-bound. 06/19, pt report he feel he had much improvement since treated in hospital. I called ID line for recommendation for d/c plan. I am waiting for, and will call again if I did not get call back from ID line continue cefepime follow up ID recommends Imaging on admission included a chest x-ray and a chest CT, which showed no pulmonary emboli, atelectasis at the left lung base, right upper lobe pneumonitis with patchy air trapping. At the time of admission he reported that his disposable inner trach cannula was stained the color of the cough drops and he worries about aspiration. WBC count today was 14.3, increased from 12. I will reduce the oral prednisone from 60 daily to 40 mg PO daily. He has been afebrile since admission and has been 90-95% on a trach humidified mask. The patient's body habitus does not allow for efficient pulmonary toileting. Sputum culture results have grown out Serratia Marcescens & pseudomonas aeruginosa, which is Cefepime covers BOTH. He is on day #5 of 7 treatment. There are no oral equivalents for both patogens, so this will prolong his hospital stay past 4-days. I have added Mucsinex. Plan: Continue to monitor and treat his pneumonia/symptoms. because pt's complicate pseudomonas aeruginosa infection plus pt's chronic pressure ulcer, pt has been treated in hospital for more than 4 days (2) Super obesity Impression: 06/19 discuss with pt, encourage pt loss of weight, pt agree to do that. The patient's weight has been stable at 210 kg and on imaging has a lap band. He has underlying depression and chronic pain. He is immobile due to his weight , and his recent ankle fracture. He states that when he is at home and has his crutch, he is able to pivot to his wheel chair. Physical therapy is on hold until closer to discharge to evaluate for home services. The patient admits to having a lap band, but was non-compliant about follow up, so it was never adjusted which may have led to smaller meals. He states that his care givers are being more aware of smaller portions and he is encouraged about making better efforts toward weight loss. After speaking with the patient's mother, she confirmed that Rai would be very worship about his daily bed PT, and at home would frequently dangle during the day to work on the computer. Plan: Recommend a weight reduction program as per PCP and a lap band adjustment. (3) Tracheostomy dependence Impression: 06/19 educate pt for tracheostomy care The patient has an un-cuffed XL, disposable, chronic tracheostomy for his vocal cord paralysis which occurred as a consequence of his brain aneurysm. He refuses to explore a cuffed version and states that this would not allow him to speak. He reports that he most recently had a sore throat at home, used lozenges, and noticed that his inner trach cannula was stained red after sucking on the lozenges. I spoke with his mother via phone for a medical update who states that the patient previously went to [facility] to see Dr. Sienna Malik who would do frequent tracheostomy changes. Since Rai as fractured his ankle, this has not been possible and the patient's home care nurse took over this duty. Plan: Suggest out patient ENT follow up in prevention of aspiration events. (4) Pressure ulcer of sacral region, unspecified stage Impression: 06/20, order wound care, wound culture pt's WBC increase to 16.5 from 14. hold low dosage of prednisone pt decline to ambulate and PT/OT add vancomycin for treatment 06/19 encourage pt ambulate, Q2H turns, nursing care, and PT/OT evaluation and treatment The patient is known to have a chronic sacral ulcer that causes him discomfort. He admits to an improvement as he has recently obtained a different bed at home to help improve his chronic pressure ulcers. It has not been necessary to involve our [facility] department and the patient denies increased pain to this area. Plan: Continue Q2H turns, frequent nursing care and PT to evaluate. (5) Chronic pain syndrome Impression: The patient has chronic joint pain for good reasons and the main reason is his super obesity. His size has taken a toll on his joints, in particular his back , hips and knees. The patient is prescribed; Baclofen, gabapentin, and oxycodone at home which continue while hospitalized. I have re-stated the reasons why adding more pain medications is not ideal, and he agrees. He has no complaints of increased pain today upon exam. Plan: Continue home meds and watch for over sedation. (6) Diabetes type 2, uncontrolled Impression: 06/20 pt's glucose level is better controlled after increase Lantus and novelog dosage continue slide scale 06/19 pt continue to have hyperglycemia, increase Lantus to 40 unit bid This morning he had a very elevated early AM sugar of 197. He is prescribed Lantus, metformin, and aspart at home. He proves to be very advanced in his insulin resistance with dosing of his Lantus at 38 units BID, and triple that amount at mealtimes of the Aspart. Metformin is on hold as hospital protocol. The patient feels frustrated that his blood sugars remain elevated and needs to be reminded of the current steroids as a possible culprit. He continues on oral Prednisone, which may contribute to his prolonged hyperglycemia. Plan: Daily labs, continue lantus, aspart, blood sugar checks and SSI with mealtime dosing. (7) Chronic atrial fibrillation stable, continue home meds, tele, vital monitor Qualifiers: Pneumonia type: aspiration pneumonia Laterality: right Lung location: upper lobe of lung
[2018-06-20 15:26] LABS: BILIRUBIN,URINE NEGATIVE (NEGATIVE); GLUCOSE, URINE (UA) NEGATIVE (NEGATIVE); KETONES,URINE (UA) NEGATIVE (NEGATIVE); LEUKOCYTE ESTERASE, URINE NEGATIVE (NEGATIVE); NITRITE,URINE NEGATIVE (NEGATIVE); OCCULT BLOOD,URINE SMALL (NEGATIVE); PH,URINE 7.5 PH (5.0-7.5); PROTEIN,URINE NEGATIVE (NEGATIVE); UROBILINOGEN,URINE 0.2 (NORMAL) E.U./dL (NORMAL)
[2018-06-20 15:38] LABS: BACTERIA,URINE None Seen /HPF (None Seen); CLARITY,URINE CLEAR (CLEAR); SQUAMOUS EPITHELIAL CELL,UR NONE SEEN (<= Few)
[2018-06-20] MEDS ORDERED: SODIUM CHLORIDE INHALATION 3 ML NEB ONE (20:55)
[2018-06-20] MEDS: GABAPENTIN 100 MG CAPSULE PO SCH (21:39)
--- NOTE | 2018-06-20 23:09 | XRAY Report ---
Reason: Worsening hypoxia Procedure Date: 06/20/2018 Accession Number: [id number] / [id number] Procedure: XR - Chest 1 View X-Ray CPT Code: 69007 FULL RESULT: EXAM: CHEST RADIOGRAPHY EXAM DATE: 06/20/2018 10:47 PM. CLINICAL HISTORY: Worsening hypoxia. COMPARISON: CT, CHEST 1 VIEW 06/13/2018 7:01 AM. TECHNIQUE: 1 view. FINDINGS: Lungs/Pleura: Low volumes with mild basilar probable atelectasis. No definite pneumonia or edema. No gross pneumothorax or large effusion. Mediastinum: Mild cardiomegaly. No mediastinal shift. Other: Stable tracheostomy. IMPRESSION: Hypoventilatory single view chest with cardiomegaly but without definite acute process. RADIA
[2018-06-21] MEDS: VANCOMYCIN INJ 2 GM in SODIUM CHLORIDE 0.9% 500 ML IV SCH ×2 (01:00→12:22)
[2018-06-21] MEDS: SODIUM CHLORIDE FLUSH 0.9% 10 ML SYRINGE IVP SCH ×3 (01:26→17:23)
[2018-06-21] MEDS: CEFEPIME 2 GM in SODIUM CHLORIDE 0.9% MINIBAG 100 ML IV SCH ×2 (04:00→11:27)
[2018-06-21] MEDS: oxyCODONE 5 MG TABLET PO PRN ×3 (04:54→17:47)
[2018-06-21 05:20] LABS: BASOPHILS % (AUTO) 0.3 %; EOSINOPHILS % (AUTO) 1.6 %; HGB - HEMOGLOBIN 14.6 g/dL (14.0-18.0); LYMPHOCYTES % (AUTO) 16.2 %; MEAN CORPUSCULAR HEMOGLOBIN 28.5 pg (27.0-31.0); MEAN CORPUSCULAR HGB CONC 32.9 g/dL (32.0-36.0); MEAN CORPUSCULAR VOLUME 86.7 fL (80.0-94.0); MEAN PLATELET VOLUME 7.7 fL (7.4-11.4); MONOCYTES % (AUTO) 6.7 %; NEUTROPHILS % (AUTO) 75.2 %; PLT - PLATELET COUNT 237 10^3/uL (130-450); RED BLOOD COUNT 5.12 10^6/uL (4.70-6.10); RED CELL DISTRIBUTION WIDTH 14.1 % (12.0-15.0); WHITE BLOOD COUNT 20.1 x10^3/uL (4.8-10.8)
[2018-06-21 05:24] LABS: ALBUMIN 3.2 g/dL (3.2-5.5); ALBUMIN/GLOBULIN RATIO 1.1 (1.0-2.2); BILIRUBIN,TOTAL 0.6 mg/dL (0.2-1.0); CALCIUM 8.9 mg/dL (8.5-10.3); CREATININE 0.8 mg/dL (0.6-1.2); TOTAL PROTEIN 6.1 g/dL (6.7-8.2)
[2018-06-21 05:28] LABS: ABNORMAL LYMPHS % (MANUAL) 0 %
[2018-06-21 05:41] LABS: BAND NEUTROPHILS % (MANUAL) 3 %; EOSINOPHILS # (MANUAL) 0.4 10^3/uL (0-0.7); LYMPHOCYTES # (MANUAL) 3.8 10^3/uL (1.5-3.5); LYMPHOCYTES % (MANUAL) 19 %; MONOCYTES # (MANUAL) 0.8 10^3/uL (0.0-1.0); NEUTROPHILS # (MANUAL) 15.1 10^3/uL (1.5-6.6); NEUTROPHILS % (MANUAL) 72 %
[2018-06-21 05:42] LABS: DIFFERENTIAL COMMENT MANUAL DIFFERENTIAL; PLATELET ESTIMATE, MANUAL NORMAL (130-450,000) (NORMAL); RBC MORPHOLOGY (MULTIPLE) NORMAL APPEARANCE (NORMAL)
[2018-06-21] MEDS: INSULIN ASPART 300 UNIT/3 ML PEN SUBQ SCH ×6 (07:51→17:22)
[2018-06-21] MEDS ORDERED: predniSONE 20 MG TABLET PO SCH (08:00)
[2018-06-21] MEDS: diltiaZEM CD 120 MG CAPSULE PO SCH (08:11)
[2018-06-21] MEDS: POLYETHYLENE GLYCOL 3350 17 GM PACKET PO SCH (08:11)
[2018-06-21] MEDS: ASPIRIN CHEW 81 MG TABLET PO SCH (08:12)
[2018-06-21] MEDS: guaiFENesin 600 MG TABLET PO SCH ×2 (08:12→08:15)
[2018-06-21] MEDS: AMIODARONE 200 MG TABLET PO SCH (08:12)
[2018-06-21] MEDS: buPROPion XL 150 MG TABLET PO SCH (08:13)
[2018-06-21] MEDS: SPIRONOLACTONE 25 MG TABLET PO SCH (08:13)
[2018-06-21] MEDS: SERTRALINE 50 MG TABLET PO SCH (08:13)
[2018-06-21] MEDS: CHOLECALCIFEROL 1,000 UNIT TABLET PO SCH (08:14)
[2018-06-21] MEDS: FUROSEMIDE 20 MG TABLET PO SCH (08:14)
[2018-06-21] MEDS: NYSTATIN POWDER 15 GM TOP SCH (08:15)
[2018-06-21] MEDS: INSULIN GLARGINE 300 UNIT/3 ML PEN SUBQ SCH (08:24)
[2018-06-21] MEDS ORDERED: DOCUSATE SODIUM 250 MG CAPSULE PO SCH (09:00)
[2018-06-21] MEDS: SENNA 8.6 MG TABLET PO SCH ×2 (09:59→17:17)
--- NOTE | 2018-06-21 12:19 | DISCHARGE SUMMARY ---
Discharge Summary Discharge Date: 06/21/18 Discharging Provider: RABAGO Primary Care Provider: Jen Corado Discharge Disposition: 02 Transfer Acute Care Hosp Discharge Facility Name: [facility] - DIAGNOSES Admission Diagnoses: (1) Pneumonia (2) Super obesity (3) Tracheostomy dependence (4) Pressure ulcer of sacral region, unspecified stage (5) Chronic pain syndrome (6) Diabetes type 2, uncontrolled (7) Chronic atrial fibrillation (8) Major depressive disorder Discharge Diagnoses with Status of Each Condition: (1) Pneumonia sputum culture and sensitivity study reveals Cefepime to treat. ID was consulted. but pt's WBC continue elevated even after adding of Vancomycin, report to hospitalist of [facility], transfer pt to [facility] for advance care (2) Super obesity discuss with pt for loss of weight (3) Tracheostomy dependence discuss with pt for care of tracheostomy, infection prevention (4) Pressure ulcer of sacral region, unspecified stage wound care, and vancomycin treat for, transfer pt to [facility] for advance care (5) Chronic pain syndrome stable (6) Diabetes type 2, uncontrolled stable (7) Chronic atrial fibrillation stable (8) Major depressive disorder stable (9) mucus plug pt's O2 sat was drop to 70% when pt had mucus plug on last night. Pt need bronchoscopy. transfer pt to [facility] for advance care - HPI History of Present Illness: refer from Ms. Leblanc's HPI as the following: Bam Lane is an unfortunate 58-year old male with a past medical history of hypertension, hyperlipidemia, atrial fibrillation, chronic edema, type 2 DM-insulin dependent, chronic tracheostomy after a brain aneurysm in 2007 , vocal cord paralysis, morbid obesity, oxygen dependence, PAUL, bed bound, chronic wounds, and depression. Over the past 2 to 3 days, the patient the patient began to feel symptoms of shortness of breath, generalized weakness, and fatigue. He has a non-cuffed trach, and denies problems with swallowing or aspiration, although states that he has been sucking on red cough drops and has noticed that his disposable trach is stained with this when he takes it out to clean it. He believes to have had mild fever and chills, increased SOB, increased sputum production and generalized fatigue. He gets daily [employer] , and weekly nursing care. He has a home Oxygen saturation monitor and reports that his oxygen saturation was as low as 75%. He wears a trach mask at home for supplemental oxygen and has been having an increased cough with thick green sputum. Once arriving in the ED via EMS, he was found to have a normal WBC count of 10.6, mild anemia with an H/H of 13.5/41.2. An elevated carbon dioxide level of 35, and a normal troponin. Imaging shows a left lobe pneumonia. He denies SOB, chest pain, nausea, vomiting, confusion, or dizziness. He will be admitted to inpatient for further care and a swallowing evaluation for worrisome history of possible aspiration. - ALLERGIES Allergies/Adverse Reactions: Allergies Allergy/AdvReac Type Severity Reaction Status Date / Time niacin Allergy Severe Hives Verified 06/13/18 06:37 - MEDICATIONS Home Medications: Ambulatory Orders Medication Instructions Recorded Confirmed Insulin Glargine,Hum.rec.anlog 38 unit SUBQ BID 03/20/13 06/13/18 [Lantus Solostar] Lovastatin 40 mg PO QPM 03/20/13 06/13/18 metFORMIN [Glucophage] 1,000 mg PO BIDWM 03/20/13 06/13/18 Aspirin 81 mg PO DAILY 10/04/16 06/13/18 Insulin Aspart [Novolog Flexpen] 0 - 20 unit SUBQ TIDWM MDD 90 UNITS 10/04/16 Gabapentin 200 mg PO QPM 03/11/17 06/13/18 Icosapent Ethyl [Vascepa] 2 gm PO BID 03/12/17 06/13/18 Sertraline HCl [Zoloft] 200 mg PO DAILY 03/12/17 06/13/18 Albuterol 3 ml INH BID PRN 05/03/18 06/13/18 Amiodarone HCl 200 mg PO DAILY 05/03/18 06/13/18 Baclofen 10 mg PO QID PRN 05/03/18 06/13/18 Bupropion HCl [Bupropion Xl] 300 mg PO DAILY 05/03/18 06/13/18 Oxycodone HCl 10 mg PO Q5H PRN MDD 50 05/03/18 06/13/18 Budesonide [Pulmicort] 0.5 mg IH BID #60 neb 05/07/18 06/13/18 Furosemide [Lasix] 60 mg PO DAILY #90 tablet 05/07/18 06/13/18 Spironolactone [Aldactone] 25 mg PO DAILY #30 tablet 05/07/18 06/13/18 Diltiazem HCl [Diltiazem ER] 120 mg PO BID 06/13/18 06/13/18 Multivitamin [Theragran] 1 tab PO DAILY 06/13/18 06/13/18 [place]-3 Acid Ethyl Esters [Lovaza] 1 gm PO BID 06/13/18 06/13/18 Calcium Citrate/Vitamin D3 2 tab PO DAILY 06/17/18 06/17/18 [Calcium Citrate-Vit D3 Tablet] Cinnamon Bark [Cinnamon] 500 PO DAILY 06/17/18 Cranberry Fruit Extract [Cranberry] 300 mg PO DAILY 06/17/18 06/17/18 Garlic 1,000 mg PO DAILY 06/17/18 06/17/18 - PHYSICAL EXAM AT DISCHARGE General Appearance: positive: No acute distress, Alert. negative: Lethargic Eyes Bilateral: positive: Normal inspection, PERRL, EOMI. negative: No lid inflammation, Conjunctivae nml, No scleral icterus ENT: positive: ENT inspection nml, Pharynx nml, No signs of dehydration. negative: Purulent nasal drainage, Pharyngeal erythema, Oral lesions Neck: positive: Nml inspection, Thyroid nml, No JVD, Trachea midline. negative : Thyromegaly, Lymphadenopathy (R), Lymphadenopathy (L), Stiff neck, Swelling/ bruising, Tracheal deviation Respiratory: positive: Chest non-tender, No respiratory distress, Rhonchi. negative: Wheezes, Rales Cardiovascular: positive: Regular rate & rhythm, No murmur, No gallop. negative : Irregularly irregular, Extrasystoles, Tachycardia, Bradycardia, JVD present, Systolic murmur, Diastolic murmur Peripheral Pulses: positive: 2+ Abdomen: positive: Non-tender, No organomegaly, Nml bowel sounds, No distention. negative: Tenderness, Guarding, Rebound Back: positive: Nml inspection. negative: CVA tenderness (R), CVA tenderness (L ) Skin: positive: Color nml, No rash, Warm, Dry. negative: Cyanosis, Diaphoresis , Pallor Extremities: positive: Non-tender, Full ROM, Nml appearance. negative: Calf tenderness, Elda's sign/cords Neurologic/Psychiatric: positive: Oriented x3, Sensation nml, Mood/affect nml. negative: Weakness, Sensory loss, Facial droop, Slurred/abnml speech, Depressed mood/affect - LABS Result Diagrams: 06/21/18 04:50 06/21/18 04:50 - FOLLOW UP Follow Up: transfer pt to [facility] for advance care - TIME SPENT Time Spent in Discharge (Minutes): 55
[2018-06-21] MEDS: SODIUM CHLORIDE 0.9% 1,000 ML IV SCH (15:47)
[2018-06-21 16:04] VITALS: BP 115/70
[2018-06-21] MEDS ORDERED: BISACODYL 10 MG SUPP PR ONE (17:03)
== END 2018-06-21 18:15 | disposition short-term general hospital (02) | DRG 178 ==
LOC: EDUNIT# → ED 06:32 → MS3 08:56
PROVIDERS: ADMIT Nurse Practitioner; ATTEND Nurse Practitioner Gerontology
DX: J15.6 Pneumonia due to other Gram-negative bacteria (principal); Z68.43 Body mass index [BMI] 50.0-59.9, adult; J44.0 Chronic obstructive pulmonary disease with (acute) lower respiratory infection; I69.851 Hemiplegia and hemiparesis following other cerebrovascular disease affecting right dominant side; F11.20 Opioid dependence, uncomplicated; F33.1 Major depressive disorder, recurrent, moderate; T17.990A Other foreign object in respiratory tract, part unspecified in causing asphyxiation, initial encounter; J15.1 Pneumonia due to Pseudomonas; I11.0 Hypertensive heart disease with heart failure; I50.9 Heart failure, unspecified; E11.65 Type 2 diabetes mellitus with hyperglycemia; E11.42 Type 2 diabetes mellitus with diabetic polyneuropathy; I48.2 Chronic atrial fibrillation; G89.4 Chronic pain syndrome; L89.151 Pressure ulcer of sacral region, stage 1; E78.5 Hyperlipidemia, unspecified; E66.01 Morbid (severe) obesity due to excess calories; J38.00 Paralysis of vocal cords and larynx, unspecified; I25.10 Atherosclerotic heart disease of native coronary artery without angina pectoris; D64.9 Anemia, unspecified; R09.02 Hypoxemia; G47.33 Obstructive sleep apnea (adult) (pediatric); I27.20 Pulmonary hypertension, unspecified; N40.1 Benign prostatic hyperplasia with lower urinary tract symptoms; N39.498 Other specified urinary incontinence; R33.8 Other retention of urine; R35.0 Frequency of micturition; R35.1 Nocturia; M25.552 Pain in left hip; M25.551 Pain in right hip; M25.562 Pain in left knee; M25.561 Pain in right knee; M54.9 Dorsalgia, unspecified; E88.81 Metabolic syndrome and other insulin resistance; Z51.5 Encounter for palliative care; Z99.81 Dependence on supplemental oxygen; Z86.79 Personal history of other diseases of the circulatory system; Z74.01 Bed confinement status; Z93.0 Tracheostomy status; Z79.4 Long term (current) use of insulin; Z79.51 Long term (current) use of inhaled steroids; Z79.899 Other long term (current) drug therapy; Z79.82 Long term (current) use of aspirin; Z98.84 Bariatric surgery status; Z86.14 Personal history of Methicillin resistant Staphylococcus aureus infection; Z82.3 Family history of stroke; Z87.891 Personal history of nicotine dependence; Z91.19 Patient's noncompliance with other medical treatment and regimen
CPT/HCPCS: 36415; 71045; 71275; 80053; 80202; 81001; 82803; 83036; 83605; 83690; 83735; 83880; 84484; 85025; 85651; 86140; 87040; 87070; 87077; 87086; 87181; 87205; 93306; 94645; 96365; 96372; 99283; 99284

== ENCOUNTER 2018-08-02 08:00 | Outpatient (CLI) | payer MEDICAID ==
[2018-08-02 17:49] LABS: BASOPHILS # (AUTO) 0.1 10^3/uL (0.0-0.1); BASOPHILS % (AUTO) 0.5 %; EOSINOPHILS # (AUTO) 0.1 10^3/uL (0.0-0.7); EOSINOPHILS % (AUTO) 1.1 %; HGB - HEMOGLOBIN 13.9 g/dL (14.0-18.0); LYMPHOCYTES # (AUTO) 1.5 10^3/uL (1.5-3.5); LYMPHOCYTES % (AUTO) 12.7 %; MEAN CORPUSCULAR HEMOGLOBIN 27.9 pg (27.0-31.0); MEAN CORPUSCULAR HGB CONC 32.4 g/dL (32.0-36.0); MEAN CORPUSCULAR VOLUME 86.1 fL (80.0-94.0); MEAN PLATELET VOLUME 8.2 fL (7.4-11.4); MONOCYTES # (AUTO) 0.8 10^3/uL (0.0-1.0); MONOCYTES % (AUTO) 7.1 %; NEUTROPHILS # (AUTO) 9.3 10^3/uL (1.5-6.6); NEUTROPHILS % (AUTO) 78.6 %; PLT - PLATELET COUNT 263 10^3/uL (130-450); RED BLOOD COUNT 4.98 10^6/uL (4.70-6.10); RED CELL DISTRIBUTION WIDTH 14.1 % (12.0-15.0); WHITE BLOOD COUNT 11.8 x10^3/uL (4.8-10.8)
[2018-08-02 17:50] LABS: BILIRUBIN,URINE NEGATIVE (NEGATIVE); GLUCOSE, URINE (UA) >=1000 mg/dL (NEGATIVE); KETONES,URINE (UA) NEGATIVE (NEGATIVE); LEUKOCYTE ESTERASE, URINE NEGATIVE (NEGATIVE); NITRITE,URINE NEGATIVE (NEGATIVE); OCCULT BLOOD,URINE LARGE (NEGATIVE); PROTEIN,URINE NEGATIVE (NEGATIVE); UROBILINOGEN,URINE 0.2 (NORMAL) E.U./dL (NORMAL)
[2018-08-02 18:09] LABS: CLARITY,URINE HAZY (CLEAR)
[2018-08-02 18:10] LABS: BACTERIA,URINE None Seen /HPF (None Seen); RBC,URINE TNTC /HPF (0-5); SQUAMOUS EPITHELIAL CELL,UR NONE SEEN (<= Few)
== END 2018-08-02 08:01 | disposition home or self-care (01) ==
LOC: LAB.R 08:00
PROVIDERS: ATTEND Nurse Practitioner Family
DX: N39.0 Urinary tract infection, site not specified (principal)
CPT/HCPCS: 80053; 81001; 81003; 85025; 87086

== ENCOUNTER 2018-08-18 11:51 | Outpatient (CLI) | payer MEDICAID | END 2018-08-18 11:52 | disposition critical access hospital (66) | LOC: EMS 11:51 | PROVIDERS: ATTEND Surgery | DX: R46.4 Slowness and poor responsiveness (principal); R53.83 Other fatigue | CPT/HCPCS: A0425; A0429; A0999 ==

== ENCOUNTER 2018-08-18 12:22 | Emergency (ER) | payer MEDICAID ==
--- NOTE | 2018-08-18 12:41 | ED Physician Documentation ---
PD HPI ALTERED MENTAL STATUS - Stated complaint Stated Complaint: AMS - Chief complaint Chief Complaint: Neuro - History obtained from History obtained from: Patient, Caregiver - History of Present Illness Timing - onset: How many days ago (3-4 days He has been feeling generally weak with less appetite and less intake and feels "lethargic".) Timing - duration: Days (4) Timing - details: Gradual onset, Still present (worse today), Waxing and waning Quality / character: Less responsive, Disoriented Associated symptoms: General weakness. No: Fever, Headache, Dyspnea, Cough, NVD (but feels less appetite and intake) Contributing factors: Recent med change Basline status: Alert and oriented X 3 Similar symptoms before: Diagnosis (infections) Recently seen: Clinic (He had had his blood pressure medicine changed from diltiazem to metoprolol 4 days ago and also changed from warfarin to Xarelto. He is not quite clear the reason for the changing. He states he had had dark urine at that time and may be under hydrated with less intake. However he is feeling weaker and sleepy the last several days since changing medicines. He denies any cough or cold type symptoms.) Review of Systems Constitutional: reports: Fatigue. denies: Fever, Chills Nose: denies: Rhinorrhea / runny nose, Congestion Throat: denies: Sore throat Respiratory: denies: Dyspnea, Cough GI: denies: Abdominal Pain, Vomiting, Diarrhea : reports: Frequency, Incontinent Skin: denies: Rash, Lesions Musculoskeletal: denies: Neck pain Neurologic: denies: Headache PD PAST MEDICAL HISTORY - Past Medical History Cardiovascular: Congestive heart failure, Hypertension, High cholesterol, Coronary artery disease, Atrial fibrillation, Murmur, Arrhythmia, Valve disorder Respiratory: COPD, Pneumonia, Shortness of breath, Sleep apnea Neuro: Headaches, Peripheral neuropathy, Other (brain aneurysm in 2008) Endocrine/Autoimmune: Type 2 diabetes GI: GERD, Chronic constipation, Other (post lap band) 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: None : Benign prostate hypertrophy, Retention, Incontinence, Nocturia, Frequency HEENT: Chronic vision loss, Chronic sinusitis Psych: Depression, Anxiety, Eating disorder Musculoskeletal: Osteoarthritis, Osteoporosis, Hemiplegia, Fatigue, Chronic back pain Derm: Rosacea - Past Surgical History Past Surgical History: Yes General: Cholecystectomy, Gastric surgery Ortho: Other (ankle repair history) HEENT: Tracheostomy - Present Medications Home Medications: Ambulatory Orders Medication Instructions Recorded Confirmed Insulin Glargine,Hum.rec.anlog 38 unit SUBQ BID 03/20/13 06/13/18 [Lantus Solostar] Lovastatin 20 mg PO QPM 03/20/13 06/13/18 metFORMIN [Glucophage] 1,000 mg PO BIDWM 03/20/13 06/13/18 Aspirin 81 mg PO DAILY 10/04/16 06/13/18 Insulin Aspart [Novolog Flexpen] 0 - 20 unit SUBQ TIDWM MDD 90 UNITS 10/04/16 06/13/18 Gabapentin 200 mg PO QPM 03/11/17 06/13/18 Icosapent Ethyl [Vascepa] 2 gm PO BID 03/12/17 06/13/18 Sertraline HCl [Zoloft] 200 mg PO DAILY 03/12/17 06/13/18 Albuterol 3 ml INH BID PRN 05/03/18 06/13/18 Amiodarone HCl 200 mg PO DAILY 05/03/18 06/13/18 Baclofen 10 mg PO QID PRN 05/03/18 06/13/18 Bupropion HCl [Bupropion Xl] 300 mg PO DAILY 05/03/18 06/13/18 Oxycodone HCl 10 mg PO Q5H PRN MDD 50 05/03/18 06/13/18 Budesonide [Pulmicort] 0.5 mg IH BID #60 neb 05/07/18 06/13/18 Furosemide [Lasix] 60 mg PO DAILY #90 tablet 05/07/18 06/13/18 Spironolactone [Aldactone] 25 mg PO DAILY #30 tablet 05/07/18 06/13/18 Multivitamin [Theragran] 1 tab PO DAILY 06/13/18 06/13/18 [place]-3 Acid Ethyl Esters [Lovaza] 1 gm PO BID 06/13/18 06/13/18 Calcium Citrate/Vitamin D3 2 tab PO DAILY 06/17/18 06/17/18 [Calcium Citrate-Vit D3 Tablet] Cinnamon Bark [Cinnamon] 500 PO DAILY 06/17/18 Cranberry Fruit Extract [Cranberry] 300 mg PO DAILY 06/17/18 06/17/18 Garlic 1,000 mg PO DAILY 06/17/18 06/17/18 Metoprolol Succinate 50 mg PO DAILY 08/18/18 08/18/18 Rivaroxaban [Xarelto] 10 mg PO DAILY 08/18/18 08/18/18 - Allergies Allergies/Adverse Reactions: Allergies Allergy/AdvReac Type Severity Reaction Status Date / Time niacin Allergy Severe Hives Verified 08/19/18 11:08 - Social History Does the pt smoke?: No Smoking Status: Never smoker Does the pt drink ETOH?: No Does the pt have substance abuse?: No - Immunizations Immunizations are current?: No Immunizations: TDAP >10years/unknown - POLST Patient has POLST: No POLST Status: Full Code PD ED PE NORMAL - Vitals Vital signs reviewed: Yes - General General: Alert and oriented X 3, No acute distress, Well developed/nourished - HEENT HEENT: Pharynx benign - Neck Neck: Supple, no meningeal sign, No adenopathy - Cardiac Cardiac: RRR, No murmur - Respiratory Respiratory: Clear bilaterally, Other (trach in place) - Abdomen Abdomen: Normal bowel sounds, Soft, Non tender, Non distended - Male Male : Deferred - Rectal Rectal: Deferred - Back Back: No CVA TTP - Derm Derm: Normal color, Warm and dry - Extremities Extremities: No calf tenderness / cord, Other (1+ edema in both lower legs) - Neuro Neuro: Alert and oriented X 3, No motor deficit, Normal speech (for him, based on his trach) Results - Vitals Vitals: Vital Signs - 24 hr 08/18/18 08/18/18 08/18/18 13:00 14:00 15:00 Temperature Heart Rate 82 80 79 Respiratory 22 20 20 Rate Blood Pressure 117/64 112/61 132/82 H O2 Saturation 97 92 98 08/18/18 16:27 Temperature 36.4 C L Heart Rate 77 Respiratory 20 Rate Blood Pressure 125/74 O2 Saturation 98 Oxygen O2 Source [Without Activity] trach blow by O2 Source trach collar - Labs Labs: Laboratory Tests 08/18/18 08/18/18 08/18/18 12:50 12:50 12:50 WBC 10.8 RBC 4.34 L Hgb 12.6 L Hct 37.4 L MCV 86.2 MCH 29.0 MCHC 33.6 RDW 14.3 Plt Count 264 MPV 7.8 Neut # (Auto) 8.2 H Lymph # (Auto) 1.5 [place] # (Auto) 0.9 Eos # (Auto) 0.1 Baso # (Auto) 0.0 Absolute Nucleated RBC 0.01 Nucleated RBC % 0.1 PT 14.1 H INR 1.3 H APTT 34.6 H Sodium 138 Potassium 4.4 Chloride 88 L Carbon Dioxide 42 H* Anion Gap 8.0 BUN 34 H Creatinine 0.9 Estimated GFR (MDRD) 86 L Glucose 270 H Lactic Acid Calcium 9.5 Magnesium 1.9 Total Bilirubin 0.6 AST 34 ALT 54 Alkaline Phosphatase 81 B-Natriuretic Peptide Total Protein 6.9 Albumin 3.3 Globulin 3.6 Albumin/Globulin Ratio 0.9 L Lipase 20 L Urine Color Urine Clarity Urine pH Ur Specific [place] Urine Protein Urine Glucose (UA) Urine Ketones Urine Occult Blood Urine Nitrite Urine Bilirubin Urine Urobilinogen Ur Leukocyte Esterase Urine RBC Urine WBC Ur Squamous Epith Cells Urine Bacteria Ur Microscopic Review Urine Culture Comments Influenza A (Rapid) Influenza B (Rapid) 08/18/18 08/18/18 08/18/18 12:50 13:10 13:40 WBC RBC Hgb Hct MCV MCH MCHC RDW Plt Count MPV Neut # (Auto) Lymph # (Auto) [place] # (Auto) Eos # (Auto) Baso # (Auto) Absolute Nucleated RBC Nucleated RBC % PT INR APTT Sodium Potassium Chloride Carbon Dioxide Anion Gap BUN Creatinine Estimated GFR (MDRD) Glucose Lactic Acid 1.1 Calcium Magnesium Total Bilirubin AST ALT Alkaline Phosphatase B-Natriuretic Peptide 113 H Total Protein Albumin Globulin Albumin/Globulin Ratio Lipase Urine Color Urine Clarity Urine pH Ur Specific [place] Urine Protein Urine Glucose (UA) Urine Ketones Urine Occult Blood Urine Nitrite Urine Bilirubin Urine Urobilinogen Ur Leukocyte Esterase Urine RBC Urine WBC Ur Squamous Epith Cells Urine Bacteria Ur Microscopic Review Urine Culture Comments Influenza A (Rapid) Negative Influenza B (Rapid) Negative 08/18/18 13:52 WBC RBC Hgb Hct MCV MCH MCHC RDW Plt Count MPV Neut # (Auto) Lymph # (Auto) [place] # (Auto) Eos # (Auto) Baso # (Auto) Absolute Nucleated RBC Nucleated RBC % PT INR APTT Sodium Potassium Chloride Carbon Dioxide Anion Gap BUN Creatinine Estimated GFR (MDRD) Glucose Lactic Acid Calcium Magnesium Total Bilirubin AST ALT Alkaline Phosphatase B-Natriuretic Peptide Total Protein Albumin Globulin Albumin/Globulin Ratio Lipase Urine Color YELLOW Urine Clarity CLEAR Urine pH 6.0 Ur Specific [place] 1.025 Urine Protein TRACE Urine Glucose (UA) NEGATIVE Urine Ketones NEGATIVE Urine Occult Blood LARGE H Urine Nitrite NEGATIVE Urine Bilirubin NEGATIVE Urine Urobilinogen 0.2 (NORMAL) Ur Leukocyte Esterase NEGATIVE Urine RBC TNTC H Urine WBC 0-3 Ur Squamous Epith Cells NONE SEEN Urine Bacteria Few Ur Microscopic Review INDICATED Urine Culture Comments NOT INDICATED Influenza A (Rapid) Influenza B (Rapid) - Rads (name of study) chest xray Radiology: Prelim report reviewed (interstitial prominence) PD MEDICAL DECISION MAKING - ED course Complexity details: considered differential (no obvious infections. Seems sleepy. Labs are okay. CXR with interstitial changes and does not have CHF, so consider infectious. Sats are good. Appears stable for outpatient treatment. ), d/w patient Departure - Departure Disposition: 01 Home, Self Care Clinical Impression: Altered mental status Qualifiers: Altered mental status type: somnolence Qualified Code(s): R40.0 - Somnolence Condition: Stable Record reviewed to determine appropriate education?: Yes Follow-Up: Jen Lindsay ARNP [Primary Care Provider] - Prescriptions: Amox/Clav 875/125 [Augmentin] 1 each PO BID #10 tablet Comments: Your basic blood tests are appear normal here. Your urine test is normal as well. Your chest x-ray has some small amount of congestion to it that could be suggestive of an impending pneumonia. We can treat this with some antibiotics in case of early infection - Augmentin twice daily. Otherwise your tiredness and feeling lethargic started after your change in medications, so might need time to adjust to them. I would suggest taking half dose of the metoprolol for the next week and then resume the full dose. Continue your other usual medications. Discharge Date/Time: 08/18/18 16:27
[2018-08-18] MEDS ORDERED: ONDANSETRON 4 MG/2 ML VIAL IVP STA (12:56)
[2018-08-18] MEDS ORDERED: SODIUM CHLORIDE 0.9% 1,000 ML IV ONE ×2 (12:56→12:59)
[2018-08-18 13:13] LABS: BASOPHILS % (AUTO) 0.4 %; EOSINOPHILS # (AUTO) 0.1 10^3/uL (0.0-0.7); EOSINOPHILS % (AUTO) 0.7 %; HGB - HEMOGLOBIN 12.6 g/dL (14.0-18.0); LYMPHOCYTES # (AUTO) 1.5 10^3/uL (1.5-3.5); LYMPHOCYTES % (AUTO) 13.8 %; MEAN CORPUSCULAR HGB CONC 33.6 g/dL (32.0-36.0); MEAN CORPUSCULAR VOLUME 86.2 fL (80.0-94.0); MEAN PLATELET VOLUME 7.8 fL (7.4-11.4); MONOCYTES # (AUTO) 0.9 10^3/uL (0.0-1.0); MONOCYTES % (AUTO) 8.5 %; NEUTROPHILS # (AUTO) 8.2 10^3/uL (1.5-6.6); NEUTROPHILS % (AUTO) 76.6 %; PLT - PLATELET COUNT 264 10^3/uL (130-450); RED BLOOD COUNT 4.34 10^6/uL (4.70-6.10); RED CELL DISTRIBUTION WIDTH 14.3 % (12.0-15.0); WHITE BLOOD COUNT 10.8 x10^3/uL (4.8-10.8)
[2018-08-18 13:17] LABS: INR 1.3 (0.8-1.2); PT - PROTHROMBIN TIME 14.1 secs (9.9-12.6)
[2018-08-18 13:28] LABS: ALBUMIN 3.3 g/dL (3.2-5.5); ALBUMIN/GLOBULIN RATIO 0.9 (1.0-2.2); BILIRUBIN,TOTAL 0.6 mg/dL (0.2-1.0); CALCIUM 9.5 mg/dL (8.5-10.3); CREATININE 0.9 mg/dL (0.6-1.2); MAGNESIUM 1.9 mg/dL (1.7-2.8); TOTAL PROTEIN 6.9 g/dL (6.7-8.2)
--- NOTE | 2018-08-18 13:41 | XRAY Report ---
Reason: weakness for several days Procedure Date: 08/18/2018 Accession Number: [id number] / [id number] Procedure: XR - Chest 1 View X-Ray CPT Code: 13654 FULL RESULT: EXAM: CHEST RADIOGRAPHY EXAM DATE: 08/18/2018 01:16 PM. CLINICAL HISTORY: Weakness for several days. COMPARISON: Chest x-ray 06/20/2018. TECHNIQUE: 1 view. FINDINGS: Lungs/Pleura: Low lung volumes without pleural effusion or pneumothorax. Bilateral interstitial and alveolar opacities throughout both lungs. Mediastinum: Cardiomegaly. Tracheostomy tube overlies the upper mediastinum. Other: None. IMPRESSION: 1. Cardiomegaly with bilateral interstitial and alveolar opacities suggestive of pulmonary edema. RADIA
[2018-08-18 14:00] LABS: BILIRUBIN,URINE NEGATIVE (NEGATIVE); GLUCOSE, URINE (UA) NEGATIVE (NEGATIVE); KETONES,URINE (UA) NEGATIVE (NEGATIVE); LEUKOCYTE ESTERASE, URINE NEGATIVE (NEGATIVE); NITRITE,URINE NEGATIVE (NEGATIVE); OCCULT BLOOD,URINE LARGE (NEGATIVE); PROTEIN,URINE TRACE mg/dL (NEGATIVE); UROBILINOGEN,URINE 0.2 (NORMAL) E.U./dL (NORMAL)
[2018-08-18 14:05] LABS: CLARITY,URINE CLEAR (CLEAR)
[2018-08-18 14:14] LABS: RBC,URINE TNTC /HPF (0-5); SQUAMOUS EPITHELIAL CELL,UR NONE SEEN (<= Few)
[2018-08-18 14:15] LABS: BACTERIA,URINE Few /HPF (None Seen)
[2018-08-18] MEDS ORDERED: cefTRIAXone 1 GM VIAL IVP STA (14:44)
[2018-08-18 16:28] VITALS: BP 125/74
== END 2018-08-18 16:27 | disposition home or self-care (01) ==
LOC: EDUNIT# → ED 12:22
DX: R40.0 Somnolence (principal); I11.0 Hypertensive heart disease with heart failure; I50.9 Heart failure, unspecified; I25.10 Atherosclerotic heart disease of native coronary artery without angina pectoris; I48.91 Unspecified atrial fibrillation; Z79.01 Long term (current) use of anticoagulants; J44.9 Chronic obstructive pulmonary disease, unspecified; Z79.4 Long term (current) use of insulin; Z93.0 Tracheostomy status
CPT/HCPCS: 36415; 51701; 71045; 80053; 81001; 81003; 83605; 83690; 83735; 83880; 85025; 85610; 85730; 87086; 87275; 87276; 96361; 96374; 96375; 99284

== ENCOUNTER 2018-08-18 16:29 | Outpatient (CLI) | payer MEDICAID | END 2018-08-18 16:30 | disposition home or self-care (01) | LOC: EMS 16:29 | PROVIDERS: ATTEND Surgery | DX: R53.1 Weakness (principal); R41.82 Altered mental status, unspecified | CPT/HCPCS: A0425; A0428 ==

== ENCOUNTER 2018-08-19 10:29 | Outpatient (CLI) | payer MEDICAID | END 2018-08-19 10:30 | disposition critical access hospital (66) | LOC: EMS 10:29 | PROVIDERS: ATTEND Surgery | DX: R53.1 Weakness (principal); M54.5 Low back pain | CPT/HCPCS: A0425; A0429; A0999 ==

== ENCOUNTER 2018-08-19 11:00 | Inpatient (IN) | payer MEDICAID ==
[2018-08-19 11:34] LABS: BASOPHILS # (AUTO) 0.1 10^3/uL (0.0-0.1); BASOPHILS % (AUTO) 0.5 %; EOSINOPHILS # (AUTO) 0.1 10^3/uL (0.0-0.7); EOSINOPHILS % (AUTO) 1.2 %; HGB - HEMOGLOBIN 12.6 g/dL (14.0-18.0); LYMPHOCYTES # (AUTO) 1.3 10^3/uL (1.5-3.5); LYMPHOCYTES % (AUTO) 11.9 %; MEAN CORPUSCULAR HGB CONC 33.5 g/dL (32.0-36.0); MEAN CORPUSCULAR VOLUME 86.6 fL (80.0-94.0); MEAN PLATELET VOLUME 7.7 fL (7.4-11.4); MONOCYTES # (AUTO) 1.1 10^3/uL (0.0-1.0); MONOCYTES % (AUTO) 9.8 %; NEUTROPHILS # (AUTO) 8.3 10^3/uL (1.5-6.6); NEUTROPHILS % (AUTO) 76.6 %; PLT - PLATELET COUNT 266 10^3/uL (130-450); RED BLOOD COUNT 4.34 10^6/uL (4.70-6.10); RED CELL DISTRIBUTION WIDTH 14.1 % (12.0-15.0); WHITE BLOOD COUNT 10.9 x10^3/uL (4.8-10.8)
[2018-08-19 11:40] LABS: INR 1.2 (0.8-1.2); PT - PROTHROMBIN TIME 13.5 secs (9.9-12.6)
[2018-08-19 11:46] LABS: KETONES, SERUM (ACETEST) NEGATIVE (NEGATIVE)
[2018-08-19 12:05] LABS: ACETAMINOPHEN < 10 ug/mL (10-30); ALBUMIN 3.4 g/dL (3.2-5.5); ALBUMIN/GLOBULIN RATIO 0.9 (1.0-2.2); ALKALINE PHOSPHATASE 91 IU/L (42-121); ALT ALANINE AMINOTRANSFERASE 56 IU/L (10-60); AST ASPARTATE AMINOTRANSFERASE 31 IU/L (10-42); BILIRUBIN,TOTAL 0.7 mg/dL (0.2-1.0); BUN - BLOOD UREA NITROGEN 26 mg/dL (6-20); CALCIUM 9.2 mg/dL (8.5-10.3); CHLORIDE 87 mmol/L (101-111); CK- CREATINE KINASE 99 IU/L (22-269); CREATININE 0.7 mg/dL (0.6-1.2); GFR - MDRD 115 (>89); GLUCOSE 303 mg/dL (70-100); LIPASE 18 U/L (22-51); SALICYLATE < 6.0 mg/dL; SODIUM 136 mmol/L (135-145)
--- NOTE | 2018-08-19 12:09 | ED Physician Documentation ---
History of Present Illness - Stated complaint Stated Complaint: WEAKNESS - Chief complaint Chief Complaint: General - History obtained from History obtained from: Patient, Family - Additonal information Additional information: 58-year-old male was sent back in by family for increasing confusion and weakness. The patient has numerous medical problems and is completely cared for by family and caregivers. In the past several days the patient has significantly declined with extreme weakness and increasing confusion. Family has not been able to manage him at home. The patient was seen yesterday but his symptoms continue to worsen. The history is somewhat limited from the patient secondary to confusion. No reports of fever, chest pain, cough, abdominal pain, vomiting or diarrhea. Review of Systems Unable to obtain: Confused Constitutional: reports: Fatigue. 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 : Benign prostate hypertrophy, Retention, Incontinence, Nocturia, Frequency HEENT: Chronic vision loss, Chronic sinusitis Psych: Depression, Anxiety, Eating disorder Musculoskeletal: Osteoarthritis, Osteoporosis, Hemiplegia, Fatigue, Chronic back pain Derm: Rosacea - Past Surgical History Past Surgical History: Yes General: Cholecystectomy, Gastric surgery Ortho: Other HEENT: Tracheostomy - Present Medications Home Medications: Ambulatory Orders Medication Instructions Recorded Confirmed Insulin Glargine,Hum.rec.anlog 38 unit SUBQ BID 03/20/13 06/13/18 [Lantus Solostar] Lovastatin 20 mg PO QPM 03/20/13 06/13/18 metFORMIN [Glucophage] 1,000 mg PO BIDWM 03/20/13 06/13/18 Aspirin 81 mg PO DAILY 10/04/16 06/13/18 Insulin Aspart [Novolog Flexpen] 0 - 20 unit SUBQ TIDWM MDD 90 UNITS 10/04/16 06/13/18 Gabapentin 200 mg PO QPM 03/11/17 06/13/18 Icosapent Ethyl [Vascepa] 2 gm PO BID 03/12/17 06/13/18 Sertraline HCl [Zoloft] 200 mg PO DAILY 03/12/17 06/13/18 Albuterol 3 ml INH BID PRN 05/03/18 06/13/18 Amiodarone HCl 200 mg PO DAILY 05/03/18 06/13/18 Baclofen 10 mg PO QID PRN 05/03/18 06/13/18 Bupropion HCl [Bupropion Xl] 300 mg PO DAILY 05/03/18 06/13/18 Oxycodone HCl 10 mg PO Q5H PRN MDD 50 05/03/18 06/13/18 Budesonide [Pulmicort] 0.5 mg IH BID #60 neb 05/07/18 06/13/18 Spironolactone [Aldactone] 25 mg PO DAILY #30 tablet 05/07/18 06/13/18 Multivitamin [Theragran] 1 tab PO DAILY 06/13/18 06/13/18 [place]-3 Acid Ethyl Esters [Lovaza] 1 gm PO BID 06/13/18 06/13/18 Calcium Citrate/Vitamin D3 2 tab PO DAILY 06/17/18 06/17/18 [Calcium Citrate-Vit D3 Tablet] Cinnamon Bark [Cinnamon] 500 PO DAILY 06/17/18 Cranberry Fruit Extract [Cranberry] 300 mg PO DAILY 06/17/18 06/17/18 Garlic 1,000 mg PO DAILY 06/17/18 06/17/18 Rivaroxaban [Xarelto] 10 mg PO DAILY 08/18/18 08/18/18 Furosemide 80 mg PO DAILY 08/19/18 08/19/18 Metoprolol Tartrate [Lopressor] 50 mg PO BID 08/19/18 08/19/18 oxyCODONE ER [OxyCONTIN] 10 mg PO BID 08/19/18 08/19/18 - Allergies Allergies/Adverse Reactions: Allergies Allergy/AdvReac Type Severity Reaction Status Date / Time niacin Allergy Severe Hives Verified 08/19/18 11:08 - Social History Does the pt smoke?: No Smoking Status: Never smoker Does the pt drink ETOH?: No Does the pt have substance abuse?: No - Immunizations Immunizations are current?: No Immunizations: TDAP >10years/unknown - POLST Patient has POLST: No POLST Status: Full Code PD ED PE NORMAL - General General: Other (58-year-old chronically ill and significantly debilitated morbidly obese male who appears confused but is in no significant distress) - HEENT HEENT: Atraumatic, PERRL, EOMI, Ears normal, Other (Poor dental hygiene) - Cardiac Cardiac: Other (Atrial fibrillation with controlled rate) - Respiratory Respiratory: No respiratory distress - Abdomen Abdomen: Soft, Non tender - Derm Derm: Normal color - Extremities Extremities: No deformity - Neuro Neuro: Other (The patient is alert, communicative but confused moving all 4 extremities and has no obvious focal neuro deficit) PD ED PE EXPANDED - Psych Psych: Other (Confused) Results - Vitals Vitals: Vital Signs - 24 hr 08/19/18 08/19/18 08/19/18 11:03 13:23 14:00 Temperature 36.2 C L Heart Rate 79 80 78 Respiratory 16 15 14 Rate Blood Pressure 122/58 L 133/79 H 107/73 O2 Saturation 93 98 96 Oxygen O2 Source [Without Activity] trach blow by O2 Source T-piece Oxygen Flow Rate 5 - EKG (time done) No standard instances Rhythm: Atrial fibrillation Intervals: QRS normal QRS: Normal Ischemia: Non specific changes Compare to prior EKG: Unchanged from prior EKG - Labs Labs: Laboratory Tests 08/19/18 08/19/18 08/19/18 11:20 11:20 11:20 WBC 10.9 H RBC 4.34 L Hgb 12.6 L Hct 37.6 L MCV 86.6 MCH 29.0 MCHC 33.5 RDW 14.1 Plt Count 266 MPV 7.7 Neut # (Auto) 8.3 H Lymph # (Auto) 1.3 L [place] # (Auto) 1.1 H Eos # (Auto) 0.1 Baso # (Auto) 0.1 Absolute Nucleated RBC 0.01 Nucleated RBC % 0.0 PT 13.5 H INR 1.2 APTT 33.1 Bld Gas Analysis Time Sample Site ABG pH ABG pCO2 ABG pO2 ABG HCO3 ABG Total CO2 ABG O2 Saturation ABG Base Excess Avinash Test O2 Delivery Device O2 Liters/Min Sodium 136 Potassium 4.8 Chloride 87 L Carbon Dioxide 44 H* Anion Gap 5.0 L BUN 26 H Creatinine 0.7 Estimated GFR (MDRD) 115 Glucose 303 H Calcium 9.2 Total Bilirubin 0.7 AST 31 ALT 56 Alkaline Phosphatase 91 Ammonia Total Creatine Kinase 99 Troponin I Total Protein 7.0 Albumin 3.4 Globulin 3.6 Albumin/Globulin Ratio 0.9 L Lipase 18 L Urine Color Urine Clarity Urine pH Ur Specific [place] Urine Protein Urine Glucose (UA) Urine Ketones Urine Occult Blood Urine Nitrite Urine Bilirubin Urine Urobilinogen Ur Leukocyte Esterase Urine RBC Urine WBC Ur Squamous Epith Cells Urine Bacteria Ur Microscopic Review Urine Culture Comments Salicylates < 6.0 Urine Opiates Screen Ur Oxycodone Screen Urine Methadone Screen Ur Propoxyphene Screen Acetaminophen < 10 L Ur Barbiturates Screen Ur Tricyclics Screen Ur Phencyclidine Scrn Ur Amphetamine Screen U Methamphetamines Scrn U Benzodiazepines Scrn Urine Cocaine Screen U Cannabinoids Screen Ethyl Alcohol < 5.0 Serum Ketones NEGATIVE 08/19/18 08/19/18 08/19/18 11:20 11:40 13:06 WBC RBC Hgb Hct MCV MCH MCHC RDW Plt Count MPV Neut # (Auto) Lymph # (Auto) [place] # (Auto) Eos # (Auto) Baso # (Auto) Absolute Nucleated RBC Nucleated RBC % PT INR APTT Bld Gas Analysis Time Sample Site ABG pH ABG pCO2 ABG pO2 ABG HCO3 ABG Total CO2 ABG O2 Saturation ABG Base Excess Avinash Test O2 Delivery Device O2 Liters/Min Sodium Potassium Chloride Carbon Dioxide Anion Gap BUN Creatinine Estimated GFR (MDRD) Glucose Calcium Total Bilirubin AST ALT Alkaline Phosphatase Ammonia 51.6 H Total Creatine Kinase Troponin I < 0.04 Total Protein Albumin Globulin Albumin/Globulin Ratio Lipase Urine Color YELLOW Urine Clarity CLEAR Urine pH 6.0 Ur Specific [place] 1.020 Urine Protein NEGATIVE Urine Glucose (UA) 100 H Urine Ketones NEGATIVE Urine Occult Blood MODERATE H Urine Nitrite NEGATIVE Urine Bilirubin NEGATIVE Urine Urobilinogen 0.2 (NORMAL) Ur Leukocyte Esterase NEGATIVE Urine RBC 11-25 H Urine WBC 0-3 Ur Squamous Epith Cells RARE Squamous Urine Bacteria Rare Ur Microscopic Review INDICATED Urine Culture Comments NOT INDICATED Salicylates Urine Opiates Screen NEGATIVE Ur Oxycodone Screen POSITIVE H Urine Methadone Screen NEGATIVE Ur Propoxyphene Screen NEGATIVE Acetaminophen Ur Barbiturates Screen NEGATIVE Ur Tricyclics Screen NEGATIVE Ur Phencyclidine Scrn NEGATIVE Ur Amphetamine Screen NEGATIVE U Methamphetamines Scrn NEGATIVE U Benzodiazepines Scrn NEGATIVE Urine Cocaine Screen NEGATIVE U Cannabinoids Screen NEGATIVE Ethyl Alcohol Serum Ketones 08/19/18 13:30 WBC RBC Hgb Hct MCV MCH MCHC RDW Plt Count MPV Neut # (Auto) Lymph # (Auto) [place] # (Auto) Eos # (Auto) Baso # (Auto) Absolute Nucleated RBC Nucleated RBC % PT INR APTT Bld Gas Analysis Time 1337 Sample Site LEFT RADIAL ABG pH 7.27 L ABG pCO2 96 H* ABG pO2 86 ABG HCO3 43.1 H ABG Total CO2 46.1 H* ABG O2 Saturation 96 ABG Base Excess 12.1 H Avinash Test POSITIVE O2 Delivery Device T COLLAR O2 Liters/Min 6.00 Sodium Potassium Chloride Carbon Dioxide Anion Gap BUN Creatinine Estimated GFR (MDRD) Glucose Calcium Total Bilirubin AST ALT Alkaline Phosphatase Ammonia Total Creatine Kinase Troponin I Total Protein Albumin Globulin Albumin/Globulin Ratio Lipase Urine Color Urine Clarity Urine pH Ur Specific [place] Urine Protein Urine Glucose (UA) Urine Ketones Urine Occult Blood Urine Nitrite Urine Bilirubin Urine Urobilinogen Ur Leukocyte Esterase Urine RBC Urine WBC Ur Squamous Epith Cells Urine Bacteria Ur Microscopic Review Urine Culture Comments Salicylates Urine Opiates Screen Ur Oxycodone Screen Urine Methadone Screen Ur Propoxyphene Screen Acetaminophen Ur Barbiturates Screen Ur Tricyclics Screen Ur Phencyclidine Scrn Ur Amphetamine Screen U Methamphetamines Scrn U Benzodiazepines Scrn Urine Cocaine Screen U Cannabinoids Screen Ethyl Alcohol Serum Ketones - Rads (name of study) CT head Radiology: Final report received (IMPRESSION: No acute intracranial abnormality. ), See rad report PD MEDICAL DECISION MAKING - ED course ED course: The patient's symptoms are most likely secondary to the increasing CO2. The patient will require admission to the hospital for further management of this elevated CO2 level. The findings and plan were discussed with the patient and family who understand and agree to the plan. The case discussed with the hospitalist Dr. Toribio who accepts the patient onto her service. Departure - Departure Disposition: 66 [facility] DC/Xfer Clinical Impression: Acute confusional state, Hypercapnia, Weakness, Encephalopathy acute Atrial fibrillation Qualifiers: Atrial fibrillation type: persistent Qualified Code(s): I48.1 - Persistent atrial fibrillation Condition: Fair
[2018-08-19 13:16] LABS: MUDS CUTOFF CONCENTRATIONS CUTOFF CONC BELOW:
[2018-08-19 13:19] LABS: BILIRUBIN,URINE NEGATIVE (NEGATIVE); GLUCOSE, URINE (UA) 100 mg/dL (NEGATIVE); KETONES,URINE (UA) NEGATIVE (NEGATIVE); LEUKOCYTE ESTERASE, URINE NEGATIVE (NEGATIVE); NITRITE,URINE NEGATIVE (NEGATIVE); OCCULT BLOOD,URINE MODERATE (NEGATIVE); PROTEIN,URINE NEGATIVE (NEGATIVE); UROBILINOGEN,URINE 0.2 (NORMAL) E.U./dL (NORMAL)
[2018-08-19 13:25] LABS: CLARITY,URINE CLEAR (CLEAR)
[2018-08-19 13:29] LABS: AMPHETAMINE SCREEN,URINE NEGATIVE (NEGATIVE); BENZODIAZEPINES SCREEN, URINE NEGATIVE (NEGATIVE); COCAINE SCREEN URINE NEGATIVE (NEGATIVE); METHADONE SCREEN, URINE NEGATIVE (NEGATIVE); METHAMPHETAMINES SCREEN, URINE NEGATIVE (NEGATIVE); OPIATE SCREEN, URINE NEGATIVE (NEGATIVE); OXYCODONE SCREEN, URINE POSITIVE (NEGATIVE); PROPOXYPHENE SCREEN, URINE NEGATIVE (NEGATIVE); TRICYCLIC ANTIDEPRESSANT,URINE NEGATIVE (NEGATIVE)
--- NOTE | 2018-08-19 13:30 | CT Report ---
Reason: confusion Procedure Date: 08/19/2018 Accession Number: [id number] / [id number] Procedure: CT - Head W/O CPT Code: FULL RESULT: EXAM: CT HEAD EXAM DATE: 08/19/2018 01:13 PM. CLINICAL HISTORY: Confusion. COMPARISON: None. TECHNIQUE: Multiaxial CT images were obtained from the foramen magnum to the vertex. Reformats: Sagittal and coronal. IV contrast: None. In accordance with CT protocol optimization, one or more of the following dose reduction techniques were utilized for this exam: automated exposure control, adjustment of mA and/or KV based on patient size, or use of iterative reconstructive technique. FINDINGS: Parenchyma: No intraparenchymal hemorrhage. No evidence of mass, midline shift, or CT findings of acute infarct. There is encephalomalacia in the right frontal lobe and right inferior cerebellum. Burrell-white differentiation is otherwise preserved. Extraaxial Spaces: Normal for age. No subdural or epidural collections identified. Ventricles: Normal in size and position. Sinuses and Orbits: Imaged paranasal sinuses, orbits, and mastoids show no significant abnormality. Bones: No acute fracture. Prior occipital craniotomy. Other: None. IMPRESSION: No acute intracranial abnormality. RADIA
[2018-08-19 13:39] LABS: BACTERIA,URINE Rare /HPF (None Seen); SQUAMOUS EPITHELIAL CELL,UR RARE Squamous (<= Few)
[2018-08-19 13:46] LABS: ABG PH 7.27 (7.35-7.45)
[2018-08-19 13:48] LABS: ABG HCO3 43.1 mmol/L (22.0-26.0); ABG PO2 86 mmHg (80-100)
[2018-08-19 13:49] LABS: ABG BASE EXCESS 12.1 mmol/L (-2.0-3.0); ABG OXYGEN SATURATION 96 % (94-98); ALLEN TEST POSITIVE
[2018-08-19 13:53] LABS: ABG PCO2 96 mmHg (34-45); ABG TCO2 46.1 MMOL/L (21.0-29.0)
[2018-08-19] MEDS ORDERED: ONDANSETRON 4 MG/2 ML VIAL IVP PRN (14:19)
[2018-08-19] MEDS ORDERED: ONDANSETRON ODT 4 MG TABLET TL PRN (14:19)
[2018-08-19 15:08] LABS: HB2 TOTAL 13.1 g/dL; HEMOGLOBIN A1C 1.16 g/dL; HEMOGLOBIN A1C % 10.3 % (4.6-6.2)
--- NOTE | 2018-08-19 15:13 | HISTORY & PHYSICAL EXAMINATION ---
Chief Complaint - Chief Complaint Chief Complaint: somnolence History of Present Illness - Admitted From Admitted From:: Home/ER - History Obtained From Records Reviewed: Antony History obtained from: Dr. Wright/Vdancer Exam Limitations: patient somnolence. - History of Present Illness HPI Comment/Other: This is a morbidly obese 58-year-old white male who is homebound because of his morbid obesity and immobility. He had a subarachnoid hemorrhage and subsequent aneurysmal clip in 2007. He was hospitalized for 5 months and the residual has left him with right-sided weakness, a tracheostomy because of vocal cord par alysis. His elderly mother lives with him but they both require care. [employer] workers, 7 hours a day to help clean house, bathe him, get food ready. He stopped driving in March 2016 when he realized that he has weakness in his legs was getting worse. His feet were not responding quickly when he needed to put on the break. Back in September 2016 he was still able to be mobile and that he was able to sit, stand to transfer and walk with forearm braces and hands locked on the canes. He was able to get up and do things like go to the bathroom by himself. He was admitted in September 2016 with pneumonia. Was discharged on October 07 and return October 09 with influenza, sepsis. For a while with the influenza admission it looks like he needed to go to long-term care because it was difficult to get him off supplemental oxygen, but at the end of his admission he was able to go home with physical therapy, and home health. He fell in February 2017 and broke his distal tibia on the right. Was sent home, but as he was on his way home in the ambulance, went into A. fib with RVR. He then returned to stay with us from March 16, 2017 through May 04, 2017. He had healthcare associated pneumonia. Heel ulcer, and required quite a bit of stabilization. He was transferred to [facility] after that prolonged hospitalization. From [facility] he had rehab and then home health with PT. He was not hospitalized again until April 2018 when he presented with shortness of breath and hypoxia and was found to have pneumonia. He also had a new sacral ulcer that was present on admission. Taken care of during that stay. During that stay he was also identified as having elevated pulmonary pressures, and at risk for developing cor pulmonale. He was discharged May 07. He then returned May 2018 with continued hypoxia and another episode of pneumonia. He was transferred on June 21, 2018 to [facility] [place]. His pneumonia was growing out Serratia and Pseudomonas. His respiratory status became tenuous and he was transferred to [facility]. 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 He had a bronchoscopy that was therapeutic. He was discharged from [facility] [place] to home and was admitted again to home [facility] program. Coccyx ulcer was being treated with aqua cell silver treatment. He was discharged from home health on August 08. It was noted that his PT goals were not met. He was not able to mobilize himself as he had been previously. Was losing ground. A lift transfer system was ordered. He then returned to our emergency room August 18 with somnolence. Was weak, having decreased appetite, less intake. The only thing that happened was diltiazem was changed to metoprolol by his primary care provider 4 days previously and warfarin changed to Xarelto. He was evaluated in the ER and treated as a possible infectious disorder. And he was sent home with Augmentin. He now returns with even increasing some somnolence. Family is unable to manage them at home. There is no report of fever, cough, abdominal pain, diarrhea. He is afebrile at 36.2. Pulse is in the 80s and regular. Blood pressure 122/58. He is 93% saturated on 5 L. Respiratory rate is 16. He is a somnolent, super obese white male. Blood gas shows a pH of 7.27, PCO2 96, PO2 86 and base excess 12. This is in comparison to the blood gas from March 18, 2017 where his pH is 7.43, PCO2 60. His white cell count is borderline elevated at 10.9. Hemoglobin stable at 12. Carbon dioxide very elevated at 44. But this gentleman has been in the high 30s and 40s since 2016. Random glucose is 303. Chest x-ray was not repeated from yesterday. He has changes of mild edema but no infiltrate. We are now admitting him to our ICU to be ventilated to blow off some of his hypercapnia in this gentleman who has acute on chronic respiratory failure with hypercapnia. History - Past Medical History Cardiovascular: reports: Congestive heart failure (Back in 2016 he had a mild to moderately dilated left ventricle with EF 60%. Moderate increase in left atrial volume. Severe right atrial enlargement. Pulmonary pressures could not be calculated. April 2018 ejection fraction was 55-60%. He had developed right ventricular enlargement that was mild. Right ventricular systolic pressure at rest was 41 mmHg. May 2018 he has a moderately dilated left ventricle with ejection fraction 55%. Left atrium mildly dilated. Mildly dilated right ventricle with normal systolic function, and prone pulmonary pressure could not be measured. 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 APPRAISER: reports: None : reports: Benign prostate hypertrophy, Retention, Incontinence, Nocturia, Frequency HEENT: reports: Chronic vision loss, Chronic sinusitis Psych: reports: Depression, Anxiety, Eating disorder Musculoskeletal: reports: Osteoarthritis, Osteoporosis, Hemiplegia, Fatigue, Chronic back pain Derm: reports: Rosacea MRSA Hx?: Yes - Past Surgical History General: reports: Cholecystectomy, Gastric surgery Ortho: reports: Other HEENT: reports: Tracheostomy - Family & Social History Family History: Mother: Alive and Well, Diabetes, Type 2, Hypertension, Mental Illness, Obesity, Father: , CVA/TIA, Sister: Alive and Well, , Brother: Alive and Well, , Cancer Family History Comment/Other: Mother is alive and in poor health with DM, obesity, CAD, depression. Father at age 48 after a CVA. The patient has 3 brothers and 2 sisters. He recently lost his sister after complications of Downs syndrome at age 59 years. The other sister is alive and well. He lost one brother at age 39 from lung cancer, and the other 2 brothers are alive and well. Social History Notes: The patient lives independently with his mother, who is in poor physical condition. The patient is considered home bound and is seen for in-home visits by his PCP Jen Lindsay. He has a [employer] [facility] bed, and [employer] workers daily. 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 He is not on disability after having a traumatic event in 2007, which was a brain aneurysm leaving him with a chronic trach and chronic right sided weakness. He has no children and is not . He denies illicit drug use, or alcohol use. He admits to a tobacco dependence history from age [age]. He wishes to be a FULL code. - Substance History Use: Uses substance without health or social issues: NONE Abuse: Recurrent use of substance despite neg consequences: NONE Dependence: Experiences withdrawal or developed tolerances: NONE - POLST Patient has POLST: No POLST Status: Full Code Meds/Allgy - Home Medications Home Medications: Ambulatory Orders Medication Instructions Recorded Confirmed Insulin Glargine,Hum.rec.anlog 45 unit SUBQ BID 03/20/13 08/19/18 [Lantus Solostar] Lovastatin 40 mg PO QPM 03/20/13 08/19/18 metFORMIN [Glucophage] 500 mg PO BIDWM 03/20/13 08/19/18 Aspirin 81 mg PO DAILY 10/04/16 08/19/18 Insulin Aspart [Novolog Flexpen] 0 - 20 unit SUBQ TIDWM MDD 90 UNITS 10/04/16 08/19/18 Gabapentin 200 mg PO QPM 03/11/17 08/19/18 Icosapent Ethyl [Vascepa] 2 gm PO BID 03/12/17 08/19/18 Sertraline HCl [Zoloft] 200 mg PO DAILY 03/12/17 08/19/18 Albuterol 3 ml INH Q4H PRN 05/03/18 08/19/18 Amiodarone HCl 200 mg PO DAILY 05/03/18 08/19/18 Baclofen 10 mg PO QID PRN 05/03/18 08/19/18 Bupropion HCl [Bupropion Xl] 300 mg PO DAILY 05/03/18 08/19/18 Oxycodone HCl 10 mg PO BID 05/03/18 08/19/18 Budesonide [Pulmicort] 0.5 mg IH BID #60 neb 05/07/18 08/19/18 Spironolactone [Aldactone] 25 mg PO DAILY #30 tablet 05/07/18 08/19/18 Multivitamin [Theragran] 1 tab PO DAILY 06/13/18 08/19/18 Calcium Citrate/Vitamin D3 2 tab PO DAILY 06/17/18 08/19/18 [Calcium Citrate-Vit D3 Tablet] Cinnamon Bark [Cinnamon] 500 mg PO DAILY 06/17/18 08/19/18 Cranberry Fruit Extract [Cranberry] 300 mg PO DAILY 06/17/18 08/19/18 Garlic 1,000 mg PO DAILY 06/17/18 08/19/18 Rivaroxaban [Xarelto] 20 mg PO DAILYWM 08/18/18 08/19/18 Furosemide 80 mg PO DAILY 08/19/18 08/19/18 Metoprolol Tartrate [Lopressor] 50 mg PO BID 08/19/18 08/19/18 oxyCODONE ER [OxyCONTIN] 10 mg PO BID 08/19/18 08/19/18 - Allergies Allergies/Adverse Reactions: Allergies Allergy/AdvReac Type Severity Reaction Status Date / Time niacin Allergy Severe Hives Verified 08/19/18 11:08 Review of Systems - Other Findings Other Findings: Patient's review of systems unable to be done because of his somnolence Prior Level of Functionality: He is homebound. He stopped being mobile in 2016 even with the use of forearm braces and canes. Stopped driving in March 2016. He is dependent on his [employer] providers to bathe him, bringing his food, etc. he lives with his mother. Exam - Vital Signs Reviewed Vital Signs: Yes Vital Signs: Vital Signs x48h Temp Pulse Resp BP Pulse Ox 08/19/18 14:00 78 14 107/73 96 08/19/18 13:23 80 15 133/79 H 98 08/19/18 11:03 36.2 C L 79 16 122/58 L 93 - Physical Exam General Appearance: positive: No acute distress, Lethargic, Other (Super obese white male, snoring in ER, laying on his back, semi upright. He has a soft cuffed trach.) Eyes Bilateral: positive: PERRL, EOMI ENT: positive: Dry mucous membranes Neck: positive: Other (soft trach cuff in place, not ususal hard one). negative: Stiff neck, Carotid bruit Respiratory: positive: Chest non-tender, No respiratory distress, Rhonchi. negative: Wheezes, Rales Cardiovascular: positive: Regular rate & rhythm. negative: Gallop/S4, Friction rub Peripheral Pulses: positive: 1+ Abdomen: positive: Non-tender, Nml bowel sounds, No distention. negative: Tenderness, Guarding, Rebound Skin: positive: Warm, Dry, Pallor Neurologic/Psychiatric: positive: CN's nml (2-12), Disoriented to place, Disoriented to time, Weakness, Slurred/abnml speech (psychomotor slowing from what I have seen before in him). negative: Motor nml (Right hemiplegia) Conclusion/Plan - Problem List (1) Metabolic encephalopathy Conclusion/Plan: from hypercapnea. See plan for problem #2 (2) Acute on chronic respiratory failure with hypercapnia Conclusion/Plan: This gentleman is super obese, and most likely has combined obesity hypoventilation syndrome as well as obstructive sleep apnea. Respiration is through trach but somewhat through mouth breathing. In looking at his carbon dioxide levels on his labs through the years he is most likely been hypercapnic starting in 2016. This appears to be a chronic problem with an unknown reason for why it is acutely worsened. There is no pneumonia on chest x-ray. There is no acute infection that we can identify. While his medications have been changed to Xarelto and metoprolol, there is nothing such as metformin that have been ordered to cause a change in his pH status. Plan: Ventilatory support to bring his PCO2 down.I will attempt to use his soft trach cuff. It may not be enough. He may be leaking around the cuff and I will not have enough of his seal to effectively ventilate him. If I go ahead and plugged the tracheostomy, then use a face BiPAP mask or even intubated with an ET tube I think also have the same problem. If I cannot ventilate him, I may have to transfer this patient. He is not in extremis, he is not critically ill. Long-term he is going to need chronic respiratory care that we cannot provide in this facility. I will is stabilizing. Then start contacting acute care facilities that specialize in patient long-term care. (3) Uncontrolled type 2 diabetes mellitus with complication, with long-term current use of insulin Conclusion/Plan: A1c is greater than 10 indicating at leas 120 days of noncomplaince. While here continue SS qid checks and Lantus. (4) Bedbound Conclusion/Plan: As a result of hemiplegia from a previous aneurysm rupture and clipping. In reviewing the record and seeing the description of his status over the last 2-3 years he has deteriorated. He has been, increasingly less mobile, completely dependent on others for his food, dressing. While he had some relative independence 2 years ago he has none now. Again, will discuss with social social work to see if this patient is a candidate for a different type of long-term care facility that can handle his trach. Handle his physical therapy needs. He is always wanted to stay at home. Mom has wanted him to stay at home. Maybe he can get enough rehab to return to home. (5) Super obesity Conclusion/Plan: Nutrition consult. (6) Hx of decubitus ulcer Conclusion/Plan: I can't examine his bottom right now. The mechanics of getting him on the ventialtore and out of one bed into a bariatric bed are proving to be awkward. I will have RN examine him to document if he is healed. He tells me that he hurts and aches there right now but can't say if he has an ulcer. - Lab Results Fish Bones: 08/19/18 11:20 08/19/18 11:20 - Diagnostic Imaging Results Diagnostic Imaging Results: positive: Final report reviewed Diagnostic Imaging Results Comments: CT HEAD EXAM DATE: 08/19/2018 01:13 PM. CLINICAL HISTORY: Confusion. COMPARISON: None. TECHNIQUE: Multiaxial CT images were obtained from the foramen magnum to the vertex. Reformats: Sagittal and coronal. IV contrast: None. In accordance with CT protocol optimization, one or more of the following dose reduction techniques were utilized for this exam: automated exposure control, adjustment of mA and/or KV based on patient size, or use of iterative reconstructive technique. FINDINGS: Parenchyma: No intraparenchymal hemorrhage. No evidence of mass, midline shift, or CT findings of acute infarct. There is encephalomalacia in the right frontal lobe and right inferior cerebellum. Burrell-white differentiation is otherwise preserved. Extraaxial Spaces: Normal for age. No subdural or epidural collections identified. Ventricles: Normal in size and position. Sinuses and Orbits: Imaged paranasal sinuses, orbits, and mastoids show no significant abnormality. Bones: No acute fracture. Prior occipital craniotomy. Other: None. IMPRESSION: No acute intracranial abnormality. CHEST RADIOGRAPHY EXAM DATE: 08/18/2018 01:16 PM. CLINICAL HISTORY: Weakness for several days. COMPARISON: Chest x-ray 06/20/2018. TECHNIQUE: 1 view. FINDINGS: Lungs/Pleura: Low lung volumes without pleural effusion or pneumothorax. Bilateral interstitial and alveolar opacities throughout both lungs. Mediastinum: Cardiomegaly. Tracheostomy tube overlies the upper mediastinum. Other: None. IMPRESSION: 1. Cardiomegaly with bilateral interstitial and alveolar opacities suggestive of pulmonary edema. - EKG Results EKG Interpreted Independently: Yes EKG Comparison: Unchanged from prior EKG EKG Findings: Atrial flutter with a 3-1 block. Early R wave progression. Voltage is all low. Most likely due to his chest wall status. Core Measures - Anticipated LOS I expect patient to be DC'd or transferred within 96 hours.: Yes - DVT/VTE - Prophylaxis VTE/DVT Device ordered at admit?: Yes
[2018-08-19] MEDS: SODIUM CHLORIDE 0.9% 1,000 ML IV SCH (16:01)
[2018-08-19] MEDS: RIVAROXABAN 10 MG TABLET PO SCH (17:04)
[2018-08-19 17:22] LABS: CARBON DIOXIDE - CO2 44 mmol/L (21-32)
[2018-08-19] MEDS ORDERED: INSULIN GLARGINE 300 UNIT/3 ML PEN SUBQ SCH (18:00)
[2018-08-19] MEDS: SODIUM CHLORIDE FLUSH 0.9% 10 ML SYRINGE IVP SCH (18:07)
[2018-08-19] MEDS: INSULIN REGULAR HUMAN 100 UNIT/1 ML 10 ML MDV SUBQ SCH (18:43)
[2018-08-19] MEDS: oxyCODONE 5 MG TABLET PO PRN (19:23)
[2018-08-19] MEDS: ALBUTEROL NEB 2.5 MG/3 ML INH PRN (20:53)
[2018-08-19] MEDS: CHLORHEXIDINE GLUCONATE 15 ML UDC PO SCH (21:05)
[2018-08-19] MEDS: ATORVASTATIN 10 MG TABLET PO SCH (21:08)
[2018-08-19] MEDS: GABAPENTIN 100 MG CAPSULE PO SCH (21:08)
[2018-08-20] MEDS: INSULIN REGULAR HUMAN 100 UNIT/1 ML 10 ML MDV SUBQ SCH (00:13)
[2018-08-20] MEDS: oxyCODONE 5 MG TABLET PO PRN ×2 (00:22→06:18)
[2018-08-20] MEDS: SODIUM CHLORIDE FLUSH 0.9% 10 ML SYRINGE IVP SCH ×2 (00:26→09:45)
[2018-08-20] MEDS: SODIUM CHLORIDE 0.9% 1,000 ML IV SCH (01:59)
[2018-08-20] MEDS: SODIUM CHLORIDE FLUSH 0.9% 10 ML SYRINGE IVP PRN ×2 (02:00→12:54)
[2018-08-20 05:00] LABS: BASOPHILS % (AUTO) 0.2 %; EOSINOPHILS # (AUTO) 0.1 10^3/uL (0.0-0.7); EOSINOPHILS % (AUTO) 1.2 %; HGB - HEMOGLOBIN 11.7 g/dL (14.0-18.0); LYMPHOCYTES # (AUTO) 1.1 10^3/uL (1.5-3.5); LYMPHOCYTES % (AUTO) 10.7 %; MEAN CORPUSCULAR HEMOGLOBIN 28.6 pg (27.0-31.0); MEAN CORPUSCULAR HGB CONC 33.1 g/dL (32.0-36.0); MEAN CORPUSCULAR VOLUME 86.7 fL (80.0-94.0); MEAN PLATELET VOLUME 7.6 fL (7.4-11.4); MONOCYTES % (AUTO) 9.7 %; NEUTROPHILS # (AUTO) 7.8 10^3/uL (1.5-6.6); NEUTROPHILS % (AUTO) 78.2 %; PLT - PLATELET COUNT 243 10^3/uL (130-450); RED BLOOD COUNT 4.07 10^6/uL (4.70-6.10)
[2018-08-20 05:09] LABS: CALCIUM 8.8 mg/dL (8.5-10.3); CREATININE 0.7 mg/dL (0.6-1.2)
[2018-08-20 05:21] LABS: MAGNESIUM 1.9 mg/dL (1.7-2.8)
[2018-08-20] MEDS ORDERED: INSULIN GLARGINE 300 UNIT/3 ML PEN SUBQ SCH ×2 (06:00→09:00)
[2018-08-20 06:10] LABS: GLUCOSE, URINE (UA) NEGATIVE (NEGATIVE); KETONES,URINE (UA) NEGATIVE (NEGATIVE); LEUKOCYTE ESTERASE, URINE NEGATIVE (NEGATIVE); NITRITE,URINE NEGATIVE (NEGATIVE); OCCULT BLOOD,URINE LARGE (NEGATIVE); PH,URINE 5.5 PH (5.0-7.5); PROTEIN,URINE 30 mg/dL (NEGATIVE); UROBILINOGEN,URINE 0.2 (NORMAL) E.U./dL (NORMAL)
[2018-08-20 06:17] LABS: BILIRUBIN,URINE NEGATIVE (NEGATIVE); CLARITY,URINE SL. CLOUDY (CLEAR); ICTOTEST,URINE NEGATIVE
[2018-08-20 06:18] LABS: BACTERIA,URINE Rare /HPF (None Seen); RBC,URINE TNTC /HPF (0-5); SQUAMOUS EPITHELIAL CELL,UR NONE SEEN (<= Few)
[2018-08-20] MEDS: PANTOPRAZOLE 40 MG VIAL IVP SCH (06:19)
[2018-08-20] MEDS ORDERED: INSULIN ASPART 300 UNIT/3 ML PEN SUBQ SCH ×2 (08:00→21:00)
[2018-08-20 08:11] LABS: ABG BASE EXCESS 9.3 mmol/L (-2.0-3.0); ABG HCO3 37.4 mmol/L (22.0-26.0); ABG OXYGEN SATURATION 96 % (94-98); ABG PH 7.35 (7.35-7.45); ABG PO2 79 mmHg (80-100); ALLEN TEST POSITIVE
[2018-08-20 08:14] LABS: ABG PCO2 70 mmHg (34-45); ABG TCO2 39.5 MMOL/L (21.0-29.0)
[2018-08-20] MEDS: buPROPion XL 150 MG TABLET PO SCH (08:42)
[2018-08-20] MEDS: ASPIRIN CHEW 81 MG TABLET PO SCH (08:43)
[2018-08-20] MEDS: SERTRALINE 50 MG TABLET PO SCH (08:43)
[2018-08-20] MEDS: AMIODARONE 200 MG TABLET PO SCH (08:43)
[2018-08-20] MEDS: MORPHINE 2 MG/ML CARPUJECT IVP PRN (08:57)
[2018-08-20] MEDS ORDERED: METOPROLOL SUCCINATE 50 MG TABLET PO SCH (09:00)
[2018-08-20] MEDS: CHLORHEXIDINE GLUCONATE 15 ML UDC PO SCH (09:45)
--- NOTE | 2018-08-20 10:26 | PROVIDER PROGRESS NOTE ---
Subjective - Prog Note Date Prog Note Date: 08/20/18 Prog Note Time: 10:19 - Subjective Pt reports feeling: Improved Subjective: He is now awake. Back to baseline. We talked about his homebound status and was going on at home. He describes feelings of hopelessness, depression, and in a situation that he will never get out of. He is willing to consider going to temporary rehab to see if he can lose weight, increase his strength, manage his trach tube and his hypercapnia. Current Medications - Current Medications Current Medications: Active Medications Albuterol () 2.5 mg INH Q4HR PRN PRN Reason: Wheezing Last Admin: 08/19/18 20:53 Dose: 2.5 mg Amiodarone HCl (Pacerone) 200 mg PO DAILY [facility] Last Admin: 08/20/18 08:43 Dose: 200 mg Aspirin (St Jhony Aspirin) 81 mg PO DAILY [facility] Last Admin: 08/20/18 08:43 Dose: 81 mg Atorvastatin Calcium (Lipitor) 10 mg PO QPM [facility] Last Admin: 08/19/18 21:08 Dose: 10 mg Baclofen (Lioresal) 10 mg PO QID PRN PRN Reason: Spasms Bupropion HCl (Wellbutrin Xl) 300 mg PO DAILY [facility] Last Admin: 08/20/18 08:42 Dose: 300 mg Chlorhexidine Gluconate (Peridex) 15 ml PO BID [facility] Last Admin: 08/20/18 09:45 Dose: Not Given Gabapentin (Neurontin) 200 mg PO QPM [facility] Last Admin: 08/19/18 21:08 Dose: 200 mg Sodium Chloride (Normal Saline 0.9%) 1,000 mls @ 100 mls/hr IV .Q10H [facility] Stop: 08/20/18 10:59 Last Infusion: 08/20/18 08:00 Dose: 100 mls/hr Insulin Aspart (Novolog) 1 - 5 unit SUBQ 0800,1200,1700,2100 [facility]; Protocol Last Admin: 08/20/18 08:48 Dose: 3 unit Insulin Glargine (Lantus Solostar) 45 unit SUBQ 0900,2100 [facility] Last Admin: 08/20/18 08:44 Dose: 45 unit Metoprolol Succinate (Toprol Xl) 50 mg PO DAILY [facility] Last Admin: 08/20/18 08:44 Dose: 50 mg Morphine Sulfate (Morphine (Carpuject)) 2 mg IVP Q2HR PRN PRN Reason: Pain 8 to 10 Last Admin: 08/20/18 08:57 Dose: 2 mg Ondansetron HCl (Zofran Inj) 4 mg IVP Q6HR PRN PRN Reason: Nausea / Vomiting Ondansetron HCl (Zofran Odt) 4 mg TL Q6HR PRN PRN Reason: Nausea / Vomiting Oxycodone HCl (Roxicodone) 10 mg PO Q5H PRN PRN Reason: PAIN Last Admin: 08/20/18 06:18 Dose: 10 mg Pantoprazole Sodium (Protonix) 40 mg IVP QDAC [facility] Last Admin: 08/20/18 06:19 Dose: 40 mg Rivaroxaban (Xarelto) 20 mg PO QDDINNER [facility] Last Admin: 08/19/18 17:04 Dose: 20 mg Sertraline HCl (Zoloft) 200 mg PO DAILY [facility] Last Admin: 08/20/18 08:43 Dose: 200 mg Sodium Chloride (Normal Saline Flush 0.9%) 10 ml IVP 0100,0900,1700 [facility] Last Admin: 08/20/18 09:45 Dose: Not Given Sodium Chloride (Normal Saline Flush 0.9%) 10 ml IVP PRN PRN PRN Reason: NEEDED PER PROVIDER ORDERS Last Admin: 08/20/18 02:00 Dose: 10 ml Insulin Glargine,Hum.rec.anlog [Lantus Solostar] 45 unit SUBQ BID 03/20/13 Lovastatin 40 mg PO QPM 03/20/13 metFORMIN [Glucophage] 500 mg PO BIDWM 03/20/13 Aspirin 81 mg PO DAILY 10/04/16 Insulin Aspart [Novolog Flexpen] 0 - 20 unit SUBQ TIDWM MDD 90 UNITS 10/04/16 Gabapentin 200 mg PO QPM 03/11/17 Icosapent Ethyl [Vascepa] 2 gm PO BID 03/12/17 Sertraline HCl [Zoloft] 200 mg PO DAILY 03/12/17 Albuterol 3 ml INH Q4H PRN 05/03/18 Amiodarone HCl 200 mg PO DAILY 05/03/18 Baclofen 10 mg PO QID PRN 05/03/18 Bupropion HCl [Bupropion Xl] 300 mg PO DAILY 05/03/18 Oxycodone HCl 10 mg PO BID 05/03/18 Multivitamin [Theragran] 1 tab PO DAILY 06/13/18 Calcium Citrate/Vitamin D3 [Calcium Citrate-Vit D3 Tablet] 2 tab PO DAILY 06/17/18 Cinnamon Bark [Cinnamon] 500 mg PO DAILY 06/17/18 Cranberry Fruit Extract [Cranberry] 300 mg PO DAILY 06/17/18 Garlic 1,000 mg PO DAILY 06/17/18 Rivaroxaban [Xarelto] 20 mg PO DAILYWM 08/18/18 Furosemide 80 mg PO DAILY 08/19/18 Metoprolol Tartrate [Lopressor] 50 mg PO BID 08/19/18 oxyCODONE ER [OxyCONTIN] 10 mg PO BID 08/19/18 Objective - Vital Signs/Intake & Output Reviewed Vital Signs: Yes Vital Signs: Vital Signs Temp Pulse Pulse Resp BP Pulse Ox 08/20/18 09:55 97.1 C H 95 25 H 100 08/20/18 09:00 97 25 H 116/77 98 08/20/18 08:00 103 H 25 H 123/83 H 98 08/20/18 07:00 95 27 H 102/89 H 96 Intake & Output: Intake & Output 08/18/18 08/19/18 08/19/18 08/20/18 00:59 00:59 23:59 23:59 Intake Total 2858.334 Output Total 1100 Balance 1758.334 - Objective General Appearance: positive: No acute distress, Alert, Other (Morbidly obese white male a 6 foot 4 and 211.5 kg.) Eyes Bilateral: positive: PERRL, EOMI Neck: positive: Other (Tracheostomy in place.). negative: Stiff neck, Carotid bruit Respiratory: positive: Chest non-tender, No respiratory distress, Rhonchi (Occasionally. But when he coughs quite a bit of phlegm comes to the trach, and then he will be clear for a while. Severely minute diminished breath sounds at the bases.). negative: Wheezes, Rales Cardiovascular: positive: Regular rate & rhythm. negative: JVD present, Gallop/S4, Friction rub Abdomen: positive: Non-tender, Nml bowel sounds, No distention, Other (Super obese pannus.) Skin: positive: Warm, Dry Extremities: positive: Full ROM Neurologic/Psychiatric: positive: Oriented x3, CN's nml (2-12), Weakness, Depressed mood/affect. negative: Motor nml - Lab Results Fish Bones: 08/20/18 04:40 08/20/18 04:40 Other Labs: Lab Results x24hrs 08/20/18 08/20/18 08/20/18 Range/Units 08:00 06:08 04:40 WBC (4.8-10.8) x10^3/uL RBC (4.70-6.10) 10^6/uL Hgb (14.0-18.0) g/dL Hct (42.0-52.0) % MCV (80.0-94.0) fL MCH (27.0-31.0) pg MCHC (32.0-36.0) g/dL RDW (12.0-15.0) % Plt Count (130-450) 10^3/uL MPV (7.4-11.4) fL Neut # (Auto) (1.5-6.6) 10^3/uL Lymph # (Auto) (1.5-3.5) 10^3/uL Price # (Auto) (0.0-1.0) 10^3/uL Eos # (Auto) (0.0-0.7) 10^3/uL Baso # (Auto) (0.0-0.1) 10^3/uL Absolute Nucleated RBC x10^3/uL Nucleated RBC % /100WBC PT (9.9-12.6) secs INR (0.8-1.2) APTT (24.9-33.3) secs Bld Gas Analysis Time 0800 Sample Site RIGHT RADIAL ABG pH 7.35 (7.35-7.45) ABG pCO2 70 H* (34-45) mmHg ABG pO2 79 L (80-100) mmHg ABG HCO3 37.4 H (22.0-26.0) mmol/L ABG Total CO2 39.5 H* (21.0-29.0) MMOL/L ABG O2 Saturation 96 (94-98) % ABG Base Excess 9.3 H (-2.0-3.0) mmol/L Avinash Test POSITIVE O2 Delivery Device TRACH MASK O2 Liters/Min 5.00 LPM Sodium (135-145) mmol/L Potassium (3.5-5.0) mmol/L Chloride (101-111) mmol/L Carbon Dioxide (21-32) mmol/L Anion Gap (6-13) BUN (6-20) mg/dL Creatinine (0.6-1.2) mg/dL Estimated GFR (MDRD) (>89) Glucose (70-100) mg/dL Glycated Hemoglobin (4.6-6.2) % Estim Average Glucose (70-100) Calcium (8.5-10.3) mg/dL Phosphorus 3.0 (2.5-4.6) mg/dL Magnesium 1.9 (1.7-2.8) mg/dL Total Bilirubin (0.2-1.0) mg/dL AST (10-42) IU/L ALT (10-60) IU/L Alkaline Phosphatase (42-121) IU/L Ammonia (7-35) umol/L Total Creatine Kinase (22-269) IU/L Troponin I (<0.49) ng/mL Total Protein (6.7-8.2) g/dL Albumin (3.2-5.5) g/dL Globulin (2.1-4.2) g/dL Albumin/Globulin Ratio (1.0-2.2) Lipase (22-51) U/L Urine Color YELLOW Urine Clarity SL. CLOUDY (CLEAR) Urine pH 5.5 (5.0-7.5) PH Ur Specific Saline >=1.030 H (1.002-1.030) Urine Protein 30 H (NEGATIVE) mg/dL Urine Glucose (UA) NEGATIVE (NEGATIVE) mg/dL Urine Ketones NEGATIVE (NEGATIVE) mg/dL Urine Occult Blood LARGE H (NEGATIVE) Urine Nitrite NEGATIVE (NEGATIVE) Urine Bilirubin NEGATIVE (NEGATIVE) Urine Urobilinogen 0.2 (NORMAL) (NORMAL) E.U./dL Ur Leukocyte Esterase NEGATIVE (NEGATIVE) Urine RBC TNTC H (0-5) /HPF Urine WBC 0-3 (0-3) /HPF Ur Squamous Epith Cells NONE SEEN (<= Few) Urine Bacteria Rare (None Seen) /HPF Ur Microscopic Review INDICATED Urine Culture Comments NOT INDICATED Salicylates mg/dL Urine Opiates Screen (NEGATIVE) Ur Oxycodone Screen (NEGATIVE) Urine Methadone Screen (NEGATIVE) Ur Propoxyphene Screen (NEGATIVE) Acetaminophen (10-30) ug/mL Ur Barbiturates Screen (NEGATIVE) Ur Tricyclics Screen (NEGATIVE) Ur Phencyclidine Scrn (NEGATIVE) Ur Amphetamine Screen (NEGATIVE) U Methamphetamines Scrn (NEGATIVE) U Benzodiazepines Scrn (NEGATIVE) Urine Cocaine Screen (NEGATIVE) U Cannabinoids Screen (NEGATIVE) Ethyl Alcohol mg/dL Serum Ketones (NEGATIVE) 08/20/18 08/20/18 08/19/18 Range/Units 04:40 04:40 13:30 WBC 10.0 (4.8-10.8) x10^3/uL RBC 4.07 L (4.70-6.10) 10^6/uL Hgb 11.7 L (14.0-18.0) g/dL Hct 35.3 L (42.0-52.0) % MCV 86.7 (80.0-94.0) fL MCH 28.6 (27.0-31.0) pg MCHC 33.1 (32.0-36.0) g/dL RDW 14.0 (12.0-15.0) % Plt Count 243 (130-450) 10^3/uL MPV 7.6 (7.4-11.4) fL Neut # (Auto) 7.8 H (1.5-6.6) 10^3/uL Lymph # (Auto) 1.1 L (1.5-3.5) 10^3/uL Price # (Auto) 1.0 (0.0-1.0) 10^3/uL Eos # (Auto) 0.1 (0.0-0.7) 10^3/uL Baso # (Auto) 0.0 (0.0-0.1) 10^3/uL Absolute Nucleated RBC 0.00 x10^3/uL Nucleated RBC % 0.0 /100WBC PT (9.9-12.6) secs INR (0.8-1.2) APTT (24.9-33.3) secs Bld Gas Analysis Time 1337 Sample Site LEFT RADIAL ABG pH 7.27 L (7.35-7.45) ABG pCO2 96 H* (34-45) mmHg ABG pO2 86 (80-100) mmHg ABG HCO3 43.1 H (22.0-26.0) mmol/L ABG Total CO2 46.1 H* (21.0-29.0) MMOL/L ABG O2 Saturation 96 (94-98) % ABG Base Excess 12.1 H (-2.0-3.0) mmol/L Avinash Test POSITIVE O2 Delivery Device T COLLAR O2 Liters/Min 6.00 LPM Sodium 139 (135-145) mmol/L Potassium 4.3 (3.5-5.0) mmol/L Chloride 89 L (101-111) mmol/L Carbon Dioxide 45 H* (21-32) mmol/L Anion Gap 5.0 L (6-13) BUN 21 H (6-20) mg/dL Creatinine 0.7 (0.6-1.2) mg/dL Estimated GFR (MDRD) 115 (>89) Glucose 238 H (70-100) mg/dL Glycated Hemoglobin (4.6-6.2) % Estim Average Glucose (70-100) Calcium 8.8 (8.5-10.3) mg/dL Phosphorus (2.5-4.6) mg/dL Magnesium (1.7-2.8) mg/dL Total Bilirubin (0.2-1.0) mg/dL AST (10-42) IU/L ALT (10-60) IU/L Alkaline Phosphatase (42-121) IU/L Ammonia (7-35) umol/L Total Creatine Kinase (22-269) IU/L Troponin I (<0.49) ng/mL Total Protein (6.7-8.2) g/dL Albumin (3.2-5.5) g/dL Globulin (2.1-4.2) g/dL Albumin/Globulin Ratio (1.0-2.2) Lipase (22-51) U/L Urine Color Urine Clarity (CLEAR) Urine pH (5.0-7.5) PH Ur Specific Saline (1.002-1.030) Urine Protein (NEGATIVE) mg/dL Urine Glucose (UA) (NEGATIVE) mg/dL Urine Ketones (NEGATIVE) mg/dL Urine Occult Blood (NEGATIVE) Urine Nitrite (NEGATIVE) Urine Bilirubin (NEGATIVE) Urine Urobilinogen (NORMAL) E.U./dL Ur Leukocyte Esterase (NEGATIVE) Urine RBC (0-5) /HPF Urine WBC (0-3) /HPF Ur Squamous Epith Cells (<= Few) Urine Bacteria (None Seen) /HPF Ur Microscopic Review Urine Culture Comments Salicylates mg/dL Urine Opiates Screen (NEGATIVE) Ur Oxycodone Screen (NEGATIVE) Urine Methadone Screen (NEGATIVE) Ur Propoxyphene Screen (NEGATIVE) Acetaminophen (10-30) ug/mL Ur Barbiturates Screen (NEGATIVE) Ur Tricyclics Screen (NEGATIVE) Ur Phencyclidine Scrn (NEGATIVE) Ur Amphetamine Screen (NEGATIVE) U Methamphetamines Scrn (NEGATIVE) U Benzodiazepines Scrn (NEGATIVE) Urine Cocaine Screen (NEGATIVE) U Cannabinoids Screen (NEGATIVE) Ethyl Alcohol mg/dL Serum Ketones (NEGATIVE) 08/19/18 08/19/18 08/19/18 Range/Units 13:06 11:40 11:20 WBC (4.8-10.8) x10^3/uL RBC (4.70-6.10) 10^6/uL Hgb (14.0-18.0) g/dL Hct (42.0-52.0) % MCV (80.0-94.0) fL MCH (27.0-31.0) pg MCHC (32.0-36.0) g/dL RDW (12.0-15.0) % Plt Count (130-450) 10^3/uL MPV (7.4-11.4) fL Neut # (Auto) (1.5-6.6) 10^3/uL Lymph # (Auto) (1.5-3.5) 10^3/uL Price # (Auto) (0.0-1.0) 10^3/uL Eos # (Auto) (0.0-0.7) 10^3/uL Baso # (Auto) (0.0-0.1) 10^3/uL Absolute Nucleated RBC x10^3/uL Nucleated RBC % /100WBC PT (9.9-12.6) secs INR (0.8-1.2) APTT (24.9-33.3) secs Bld Gas Analysis Time Sample Site ABG pH (7.35-7.45) ABG pCO2 (34-45) mmHg ABG pO2 (80-100) mmHg ABG HCO3 (22.0-26.0) mmol/L ABG Total CO2 (21.0-29.0) MMOL/L ABG O2 Saturation (94-98) % ABG Base Excess (-2.0-3.0) mmol/L Avinash Test O2 Delivery Device O2 Liters/Min LPM Sodium (135-145) mmol/L Potassium (3.5-5.0) mmol/L Chloride (101-111) mmol/L Carbon Dioxide (21-32) mmol/L Anion Gap (6-13) BUN (6-20) mg/dL Creatinine (0.6-1.2) mg/dL Estimated GFR (MDRD) (>89) Glucose (70-100) mg/dL Glycated Hemoglobin 10.3 H (4.6-6.2) % Estim Average Glucose 249 H (70-100) Calcium (8.5-10.3) mg/dL Phosphorus (2.5-4.6) mg/dL Magnesium (1.7-2.8) mg/dL Total Bilirubin (0.2-1.0) mg/dL AST (10-42) IU/L ALT (10-60) IU/L Alkaline Phosphatase (42-121) IU/L Ammonia 51.6 H (7-35) umol/L Total Creatine Kinase (22-269) IU/L Troponin I (<0.49) ng/mL Total Protein (6.7-8.2) g/dL Albumin (3.2-5.5) g/dL Globulin (2.1-4.2) g/dL Albumin/Globulin Ratio (1.0-2.2) Lipase (22-51) U/L Urine Color YELLOW Urine Clarity CLEAR (CLEAR) Urine pH 6.0 (5.0-7.5) PH Ur Specific Saline 1.020 (1.002-1.030) Urine Protein NEGATIVE (NEGATIVE) mg/dL Urine Glucose (UA) 100 H (NEGATIVE) mg/dL Urine Ketones NEGATIVE (NEGATIVE) mg/dL Urine Occult Blood MODERATE H (NEGATIVE) Urine Nitrite NEGATIVE (NEGATIVE) Urine Bilirubin NEGATIVE (NEGATIVE) Urine Urobilinogen 0.2 (NORMAL) (NORMAL) E.U./dL Ur Leukocyte Esterase NEGATIVE (NEGATIVE) Urine RBC 11-25 H (0-5) /HPF Urine WBC 0-3 (0-3) /HPF Ur Squamous Epith Cells RARE Squamous (<= Few) Urine Bacteria Rare (None Seen) /HPF Ur Microscopic Review INDICATED Urine Culture Comments NOT INDICATED Salicylates mg/dL Urine Opiates Screen NEGATIVE (NEGATIVE) Ur Oxycodone Screen POSITIVE H (NEGATIVE) Urine Methadone Screen NEGATIVE (NEGATIVE) Ur Propoxyphene Screen NEGATIVE (NEGATIVE) Acetaminophen (10-30) ug/mL Ur Barbiturates Screen NEGATIVE (NEGATIVE) Ur Tricyclics Screen NEGATIVE (NEGATIVE) Ur Phencyclidine Scrn NEGATIVE (NEGATIVE) Ur Amphetamine Screen NEGATIVE (NEGATIVE) U Methamphetamines Scrn NEGATIVE (NEGATIVE) U Benzodiazepines Scrn NEGATIVE (NEGATIVE) Urine Cocaine Screen NEGATIVE (NEGATIVE) U Cannabinoids Screen NEGATIVE (NEGATIVE) Ethyl Alcohol mg/dL Serum Ketones (NEGATIVE) 08/19/18 08/19/18 08/19/18 Range/Units 11:20 11:20 11:20 WBC (4.8-10.8) x10^3/uL RBC (4.70-6.10) 10^6/uL Hgb (14.0-18.0) g/dL Hct (42.0-52.0) % MCV (80.0-94.0) fL MCH (27.0-31.0) pg MCHC (32.0-36.0) g/dL RDW (12.0-15.0) % Plt Count (130-450) 10^3/uL MPV (7.4-11.4) fL Neut # (Auto) (1.5-6.6) 10^3/uL Lymph # (Auto) (1.5-3.5) 10^3/uL Price # (Auto) (0.0-1.0) 10^3/uL Eos # (Auto) (0.0-0.7) 10^3/uL Baso # (Auto) (0.0-0.1) 10^3/uL Absolute Nucleated RBC x10^3/uL Nucleated RBC % /100WBC PT 13.5 H (9.9-12.6) secs INR 1.2 (0.8-1.2) APTT 33.1 (24.9-33.3) secs Bld Gas Analysis Time Sample Site ABG pH (7.35-7.45) ABG pCO2 (34-45) mmHg ABG pO2 (80-100) mmHg ABG HCO3 (22.0-26.0) mmol/L ABG Total CO2 (21.0-29.0) MMOL/L ABG O2 Saturation (94-98) % ABG Base Excess (-2.0-3.0) mmol/L Avinash Test O2 Delivery Device O2 Liters/Min LPM Sodium 136 (135-145) mmol/L Potassium 4.8 (3.5-5.0) mmol/L Chloride 87 L (101-111) mmol/L Carbon Dioxide 44 H* (21-32) mmol/L Anion Gap 5.0 L (6-13) BUN 26 H (6-20) mg/dL Creatinine 0.7 (0.6-1.2) mg/dL Estimated GFR (MDRD) 115 (>89) Glucose 303 H (70-100) mg/dL Glycated Hemoglobin (4.6-6.2) % Estim Average Glucose (70-100) Calcium 9.2 (8.5-10.3) mg/dL Phosphorus (2.5-4.6) mg/dL Magnesium (1.7-2.8) mg/dL Total Bilirubin 0.7 (0.2-1.0) mg/dL AST 31 (10-42) IU/L ALT 56 (10-60) IU/L Alkaline Phosphatase 91 (42-121) IU/L Ammonia (7-35) umol/L Total Creatine Kinase 99 (22-269) IU/L Troponin I < 0.04 (<0.49) ng/mL Total Protein 7.0 (6.7-8.2) g/dL Albumin 3.4 (3.2-5.5) g/dL Globulin 3.6 (2.1-4.2) g/dL Albumin/Globulin Ratio 0.9 L (1.0-2.2) Lipase 18 L (22-51) U/L Urine Color Urine Clarity (CLEAR) Urine pH (5.0-7.5) PH Ur Specific Saline (1.002-1.030) Urine Protein (NEGATIVE) mg/dL Urine Glucose (UA) (NEGATIVE) mg/dL Urine Ketones (NEGATIVE) mg/dL Urine Occult Blood (NEGATIVE) Urine Nitrite (NEGATIVE) Urine Bilirubin (NEGATIVE) Urine Urobilinogen (NORMAL) E.U./dL Ur Leukocyte Esterase (NEGATIVE) Urine RBC (0-5) /HPF Urine WBC (0-3) /HPF Ur Squamous Epith Cells (<= Few) Urine Bacteria (None Seen) /HPF Ur Microscopic Review Urine Culture Comments Salicylates < 6.0 mg/dL Urine Opiates Screen (NEGATIVE) Ur Oxycodone Screen (NEGATIVE) Urine Methadone Screen (NEGATIVE) Ur Propoxyphene Screen (NEGATIVE) Acetaminophen < 10 L (10-30) ug/mL Ur Barbiturates Screen (NEGATIVE) Ur Tricyclics Screen (NEGATIVE) Ur Phencyclidine Scrn (NEGATIVE) Ur Amphetamine Screen (NEGATIVE) U Methamphetamines Scrn (NEGATIVE) U Benzodiazepines Scrn (NEGATIVE) Urine Cocaine Screen (NEGATIVE) U Cannabinoids Screen (NEGATIVE) Ethyl Alcohol < 5.0 mg/dL Serum Ketones NEGATIVE (NEGATIVE) 08/19/18 Range/Units 11:20 WBC 10.9 H (4.8-10.8) x10^3/uL RBC 4.34 L (4.70-6.10) 10^6/uL Hgb 12.6 L (14.0-18.0) g/dL Hct 37.6 L (42.0-52.0) % MCV 86.6 (80.0-94.0) fL MCH 29.0 (27.0-31.0) pg MCHC 33.5 (32.0-36.0) g/dL RDW 14.1 (12.0-15.0) % Plt Count 266 (130-450) 10^3/uL MPV 7.7 (7.4-11.4) fL Neut # (Auto) 8.3 H (1.5-6.6) 10^3/uL Lymph # (Auto) 1.3 L (1.5-3.5) 10^3/uL Price # (Auto) 1.1 H (0.0-1.0) 10^3/uL Eos # (Auto) 0.1 (0.0-0.7) 10^3/uL Baso # (Auto) 0.1 (0.0-0.1) 10^3/uL Absolute Nucleated RBC 0.01 x10^3/uL Nucleated RBC % 0.0 /100WBC PT (9.9-12.6) secs INR (0.8-1.2) APTT (24.9-33.3) secs Bld Gas Analysis Time Sample Site ABG pH (7.35-7.45) ABG pCO2 (34-45) mmHg ABG pO2 (80-100) mmHg ABG HCO3 (22.0-26.0) mmol/L ABG Total CO2 (21.0-29.0) MMOL/L ABG O2 Saturation (94-98) % ABG Base Excess (-2.0-3.0) mmol/L Avinash Test O2 Delivery Device O2 Liters/Min LPM Sodium (135-145) mmol/L Potassium (3.5-5.0) mmol/L Chloride (101-111) mmol/L Carbon Dioxide (21-32) mmol/L Anion Gap (6-13) BUN (6-20) mg/dL Creatinine (0.6-1.2) mg/dL Estimated GFR (MDRD) (>89) Glucose (70-100) mg/dL Glycated Hemoglobin (4.6-6.2) % Estim Average Glucose (70-100) Calcium (8.5-10.3) mg/dL Phosphorus (2.5-4.6) mg/dL Magnesium (1.7-2.8) mg/dL Total Bilirubin (0.2-1.0) mg/dL AST (10-42) IU/L ALT (10-60) IU/L Alkaline Phosphatase (42-121) IU/L Ammonia (7-35) umol/L Total Creatine Kinase (22-269) IU/L Troponin I (<0.49) ng/mL Total Protein (6.7-8.2) g/dL Albumin (3.2-5.5) g/dL Globulin (2.1-4.2) g/dL Albumin/Globulin Ratio (1.0-2.2) Lipase (22-51) U/L Urine Color Urine Clarity (CLEAR) Urine pH (5.0-7.5) PH Ur Specific Saline (1.002-1.030) Urine Protein (NEGATIVE) mg/dL Urine Glucose (UA) (NEGATIVE) mg/dL Urine Ketones (NEGATIVE) mg/dL Urine Occult Blood (NEGATIVE) Urine Nitrite (NEGATIVE) Urine Bilirubin (NEGATIVE) Urine Urobilinogen (NORMAL) E.U./dL Ur Leukocyte Esterase (NEGATIVE) Urine RBC (0-5) /HPF Urine WBC (0-3) /HPF Ur Squamous Epith Cells (<= Few) Urine Bacteria (None Seen) /HPF Ur Microscopic Review Urine Culture Comments Salicylates mg/dL Urine Opiates Screen (NEGATIVE) Ur Oxycodone Screen (NEGATIVE) Urine Methadone Screen (NEGATIVE) Ur Propoxyphene Screen (NEGATIVE) Acetaminophen (10-30) ug/mL Ur Barbiturates Screen (NEGATIVE) Ur Tricyclics Screen (NEGATIVE) Ur Phencyclidine Scrn (NEGATIVE) Ur Amphetamine Screen (NEGATIVE) U Methamphetamines Scrn (NEGATIVE) U Benzodiazepines Scrn (NEGATIVE) Urine Cocaine Screen (NEGATIVE) U Cannabinoids Screen (NEGATIVE) Ethyl Alcohol mg/dL Serum Ketones (NEGATIVE) Assessment/Plan - Problem List (1) Metabolic encephalopathy Impression: Resolved from hypercapnea. See plan for problem #2 (2) Acute on chronic respiratory failure with hypercapnia Conclusion/Plan: This gentleman is super obese, and most likely has combined obesity hypoventilation syndrome as well as obstructive sleep apnea. Both of these are not documented or confirmed diagnosis. Getting those confirmed is difficult because requires specialty [place] And then to get him to the [facility] for this workup will be an almost insurmountable problem. Respiration is through trach but somewhat through mouth breathing. In looking at his carbon dioxide levels on his labs through the years he is most likely been hypercapnic starting in 2016. This appears to be a chronic problem with an unknown reason for why it is acutely worsened at this time. There is no pneumonia on chest x-ray. There is no acute infection that we can identify. While his medications have been changed to Xarelto and metoprolol, there is nothing such as metformin that have been ordered to cause a change in his pH status.Yesterday I did attention to event. But as I suspected, the tracheostomy has proven difficult to be able to access. He leaks around the vent tubing and we cannot adequately control his respirations to blow off the carbon dioxide. We were able to get his PCO2 down into the 60s and he has woken up. Plan: Ventilatory support to bring his PCO2 down was attempted on August 19. Partially successful but the soft trach cuff is not usable for us.. He was leaking around the cuff and I did not have enough of his seal to effectively ventilate him. If I go ahead and plugged the tracheostomy, then use a face BiPAP mask or even intubated with an ET tube I think also have the same problem. If I cannot ventilate him, I may have to transfer this patient. He is not in extremis, he is not critically ill.He has improved today. And is back to his normal mental baseline. Long-term he is going to need chronic respiratory care that we cannot provide in this facility. I have contacted [facility]. I have spoken to 1 of their intake coordinators, Genoveva. She is asked that we fax the clinicals and face sheet to her. That is at (3) Uncontrolled type 2 diabetes mellitus with complication, with long-term current use of insulin Conclusion/Plan: A1c is greater than 10 indicating at leas 120 days of noncompliance. While here continue SS qid checks and Lantus. Unfortunately glucose has been consistently high since admission yesterday. He was 340 at 645 yesterday, at midnight to 56, at 6 AM this morning to 34 11/17/1967. He is on Lantus 45 units twice daily. 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 In reviewing the record and seeing the description of his status over the last 2-3 years he has deteriorated. He used to be able to drive a car. He used to be able to sit to stand and transfer to a mobility status using forearm braces and canes. He has been increasingly less mobile, completely dependent on others for his food, dressing. While he had some relative independence 2 years ago he has none now. He has not been compliant with physical therapy regime at home. Depression may have a significant part in this. Again, will discuss with social social work to see if this patient is a candidate for a different type of long-term care facility that can handle his trach. Handle his physical therapy needs. He has always wanted to stay at home. Mom has wanted him to stay at home. Maybe he can get enough rehab to return to home after a few weeks. (5) Super obesity Conclusion/Plan: Nutrition consult. (6) Hx of decubitus ulcer Conclusion/Plan: He does not like using the ceiling lift to reposition his body. So we put him on a hover mat and is easier for him and the staff. He gets frequent turns. We were able to roll him over and look at his sacrum. He has deformity of the skin in the midline where tissue has healed and pulled together. He is quite a quite a large scar. Some of the scar has dimple and folded over with large skin tags. He does have one yellow area of scab that is healing. But there is no open wound, no open skin, no redness no cellulitis.
[2018-08-20] MEDS: CHOLECALCIFEROL 1,000 UNIT TABLET PO SCH ×2 (11:48→20:55)
[2018-08-20] MEDS: oxyCODONE ER 10 MG TABLET PO SCH ×2 (11:48→20:55)
[2018-08-20] MEDS: INSULIN ASPART 300 UNIT/3 ML PEN SUBQ SCH ×4 (12:49→17:36)
[2018-08-20] MEDS: RIVAROXABAN 10 MG TABLET PO SCH (17:33)
[2018-08-20] MEDS: GABAPENTIN 100 MG CAPSULE PO SCH (20:55)
[2018-08-20] MEDS: ATORVASTATIN 10 MG TABLET PO SCH (20:55)
[2018-08-20] MEDS: METOPROLOL TARTRATE 50 MG TABLET PO SCH (20:55)
[2018-08-20] MEDS: INSULIN GLARGINE 300 UNIT/3 ML PEN SUBQ SCH (20:59)
[2018-08-20] MEDS: ALBUTEROL NEB 2.5 MG/3 ML INH PRN (21:18)
[2018-08-21] MEDS: ALBUTEROL NEB 2.5 MG/3 ML INH PRN ×2 (01:37→09:17)
[2018-08-21] MEDS: oxyCODONE 5 MG TABLET PO PRN ×3 (02:28→16:13)
[2018-08-21] MEDS: BACLOFEN 10 MG TABLET PO PRN ×3 (02:28→17:36)
[2018-08-21] MEDS: MORPHINE 2 MG/ML CARPUJECT IVP PRN ×2 (04:02→12:36)
[2018-08-21] MEDS: SODIUM CHLORIDE FLUSH 0.9% 10 ML SYRINGE IVP SCH ×4 (04:03→17:33)
[2018-08-21] MEDS: INSULIN ASPART 300 UNIT/3 ML PEN SUBQ SCH ×7 (04:05→17:30)
[2018-08-21] MEDS: CHLORHEXIDINE GLUCONATE 15 ML UDC PO SCH ×2 (04:05→10:07)
[2018-08-21 04:57] LABS: BASOPHILS # (AUTO) 0.1 10^3/uL (0.0-0.1); BASOPHILS % (AUTO) 0.6 %; EOSINOPHILS # (AUTO) 0.2 10^3/uL (0.0-0.7); EOSINOPHILS % (AUTO) 1.8 %; HGB - HEMOGLOBIN 11.8 g/dL (14.0-18.0); LYMPHOCYTES # (AUTO) 1.6 10^3/uL (1.5-3.5); LYMPHOCYTES % (AUTO) 15.4 %; MEAN CORPUSCULAR HEMOGLOBIN 29.4 pg (27.0-31.0); MEAN CORPUSCULAR HGB CONC 34.6 g/dL (32.0-36.0); MEAN PLATELET VOLUME 7.4 fL (7.4-11.4); MONOCYTES # (AUTO) 0.8 10^3/uL (0.0-1.0); MONOCYTES % (AUTO) 8.2 %; NEUTROPHILS # (AUTO) 7.5 10^3/uL (1.5-6.6); PLT - PLATELET COUNT 250 10^3/uL (130-450); WHITE BLOOD COUNT 10.1 x10^3/uL (4.8-10.8)
[2018-08-21 05:14] LABS: CALCIUM 8.7 mg/dL (8.5-10.3); CREATININE 0.6 mg/dL (0.6-1.2); PHOSPHORUS 2.7 mg/dL (2.5-4.6)
[2018-08-21] MEDS: PANTOPRAZOLE 40 MG VIAL IVP SCH (06:59)
[2018-08-21] MEDS: SODIUM CHLORIDE FLUSH 0.9% 10 ML SYRINGE IVP PRN ×2 (07:00→12:37)
[2018-08-21] MEDS: INSULIN GLARGINE 300 UNIT/3 ML PEN SUBQ SCH (08:35)
[2018-08-21] MEDS: buPROPion XL 150 MG TABLET PO SCH (08:42)
[2018-08-21] MEDS: ASPIRIN CHEW 81 MG TABLET PO SCH (08:43)
[2018-08-21] MEDS: CHOLECALCIFEROL 1,000 UNIT TABLET PO SCH (08:43)
[2018-08-21] MEDS: METOPROLOL TARTRATE 50 MG TABLET PO SCH (08:45)
[2018-08-21] MEDS: AMIODARONE 200 MG TABLET PO SCH (08:45)
[2018-08-21] MEDS: SERTRALINE 50 MG TABLET PO SCH (08:45)
[2018-08-21] MEDS: oxyCODONE ER 10 MG TABLET PO SCH (08:47)
[2018-08-21] MEDS ORDERED: POLYETHYLENE GLYCOL 3350 17 GM PACKET PO SCH (09:00)
[2018-08-21] MEDS ORDERED: MULTIVITAMIN W/IRON, MINERALS 15 ML PO SCH (12:00)
--- NOTE | 2018-08-21 12:59 | XRAY Report ---
Reason: SOB, desturation Procedure Date: 08/21/2018 Accession Number: [id number] / [id number] Procedure: XR - Chest 1 View X-Ray CPT Code: 33245 FULL RESULT: EXAM: CHEST RADIOGRAPHY EXAM DATE: 08/21/2018 12:20 PM. CLINICAL HISTORY: SOB, desaturation. COMPARISON: Test 08/18/2018. TECHNIQUE: 1 view. FINDINGS: Tracheostomy is noted. There is an azygous lobe. Stable cardiomegaly. Somewhat low lung volumes. There is pulmonary vascular congestion. Diffuse patchy infiltrates are without significant change. IMPRESSION: Likely pattern of CHF. No appreciable change. Pneumonia or other underlying process is not excluded. [facility]
[2018-08-21] MEDS ORDERED: SPIRONOLACTONE 25 MG TABLET PO SCH (13:54)
--- NOTE | 2018-08-21 14:46 | Discharge Plan ---
Discharge Plan Disposition: 02 Transfer Acute Care Hosp Condition: Fair No Smoking: If you smoke, Please STOP! Call for help. Follow-up with: Jen Lindsay ARNP [Primary Care Provider] -
[2018-08-21] MEDS ORDERED: FUROSEMIDE 40 MG TABLET PO SCH (14:47)
[2018-08-21] MEDS: RIVAROXABAN 10 MG TABLET PO SCH (17:28)
[2018-08-21 19:13] VITALS: BP 109/69
[2018-08-22] MEDS ORDERED: FUROSEMIDE 40 MG TABLET PO SCH (09:00)
[2018-08-22] MEDS ORDERED: SPIRONOLACTONE 25 MG TABLET PO SCH (09:00)
--- NOTE | 2018-08-22 20:35 | DISCHARGE SUMMARY ---
Physician: Cleopatra Griffin MD DATE OF ADMISSION: 08/19/2018 DATE OF DISCHARGE: 08/21/2018 HISTORY OF PRESENT ILLNESS: This is a 58-year-old white male who is morbidly obese, has Diabetes, is homebound over the last 1 year because of his morbid obesity and immobility. 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 He lives with his mother. They both have [employer] workers 7 hours a day for cleaning the house, bathing him and food preparation. He stopped driving in 03/2016 and stopped walking approximately 1 year ago, and has been bedbound. He has been admitted in the past for pneumonia, influenza and sepsis. There has been a recent sacral wound, which is being managed as well. On one of the last admissions, he required transfer for long-term care, then physical therapy, which was then transitioned to home health. The patient states that he had an ENT doctor who managed the trach, but the last visit to him was 3 years ago. The patient manages his trach tube by removing it himself, rinsing it in tap water and reinserting it. He presented to our ER the day before this admission with somnolence, weakness, poor appetite, and had adjustment of his medications, and was sent home on Augmentin for a presumed infection. He came back the following day (leading to this admission) with increasing somnolence, and family was unable to manage him, he was hypothermic and had altered mental status from hypercarbia with a pH of 7.27 and a pCO2 of 96. He was admitted into the ICU for ventilation and management. HOSPITAL COURSE AND DISCHARGE DIAGNOSES 1. Acute metabolic encephalopathy. His mentation improved as he was able to be ventilated. Therefore, he was kept in the ICU for closer management of his respiratory status and use of a trach collar for supplemental oxygen. He did undergo a CT of his head to evaluate for any other etiology for obtundation and this was read as having no acute intracranial abnormality. 2. Acute on chronic respiratory failure with hypercapnia. The patient's chest x-ray showed mild CHF, but no infiltrate. His hypercapnia was improved with better ventilation. The underlying problem leading to his multiple respiratory failure admissions was felt to be his tracheostomy. 3. Tracheostomy in place. There patient previously had recommendation to have ENT and pulmonary management. He requested to have his ENT management done at [facility] where his prior ENT visits had been. The Hospitalist team here reached out to the boiler fireman at [facility] who kindly accepted the patient in transfer for further evaluation and management of his trach tube, ventilation with pressure support, respiratory management and then possible placement in a long-term facility once again after their interventions. 4. Uncontrolled type 2 diabetes with complications, and long-term use of insulin. The patient was kept on a diabetic diet, long-acting insulin and sliding scale insulin coverage while here. His admission A1c was 10.3. 5. Super obesity. This patient's BMI is 57. Due to his large size, the pain in his sacrum that he described, could not be adequately evaluated because turning him, in the type of bed available here, caused repeat hypoxia. For this reason as well, the request was made to transfer to a hospital with higher level of care available. 6. Bedbound. This was due to obesity as well as his hemiplegia. Potentially, physical therapy could help him recover some of his function in the future. 7. Hemiplegia. This is now a chronic finding secondary to his stroke, which occurred 4 years ago from a hemorrhagic intracranial event. 8. Sacral pain. The patient was being treated for a presumed sacral decubitus. Adequate evaluation could not be done here, as described above. 9. Chronic atrial fibrillation/flutter. The patient's heart rate was under good control here on his home regimen. He was in atrial flutter with 3:1 block, and average heart rates were in the 80s. He was kept on his Xarelto dose. ALLERGIES: NIACIN. MEDICATIONS AT THE TIME OF TRANSFER 1. Albuterol. 2. Amiodarone 200 mg daily. 3. Baby aspirin daily. 4. Lipitor 10 mg every evening. 5. Baclofen 10 mg q.i.d. p.r.n. 6. Wellbutrin 300 mg daily. 7. Peridex b.i.d. 8. Vitamin D3 2000 units b.i.d. 9. Lasix 80 mg daily. 10. Gabapentin 200 mg every night. 11. Aspart insulin on a sliding scale and 25 mg t.i.d. with meals. 12. Lantus insulin 55 units b.i.d. 13. Metoprolol 50 mg b.i.d. 14. Morphine IV p.r.n. 15. Multivitamin daily. 16. Zofran p.r.n. 17. Oxycodone 10 mg p.o. b.i.d. 18. Protonix 40 mg IV daily. 19. MiraLax daily. 20. Xarelto 20 mg daily 21. Aldactone 25 mg daily. 22. Zoloft 200 mg daily. LABS AND IMAGING: Reviewed and summarized above. PHYSICAL EXAMINATION AT TRANSFER GENERAL: Morbidly obese white male, in no respiratory distress when wearing a trach collar. VITAL SIGNS: Blood pressure 110/69, pulse of 74, respiratory rate 20-25, oxygen saturation 93-99% on 40% FiO2 via trach collar. HEENT: Moist oral mucosa. NECK: Obese. The anterior neck had a trach, which appeared clean. A trach collar overlaid his tracheostomy. CHEST: Diminished breath sounds, but no rales or rhonchi. HEART: Heart sounds are very distant. ABDOMEN: Obese and distended. I cannot rule out organomegaly or ascites. EXTREMITIES: 1+ edema, pretibial. NEUROLOGIC: No motor strength in the lower extremities. The right upper extremity has 3/5, left has 4/5 strength. He is alert and oriented x3. CODE STATUS: FULL CODE. FOLLOWUP: This will be determined after his discharge from [facility]. Time required to complete this entire discharge, dictation, chart review, and discussion with accepting transfer center and the Management Professional: 60 minutes. cc: FELA Rowe TD: 08/22/2018 19:06 [facility]
== END 2018-08-21 20:19 | disposition short-term general hospital (02) | DRG 189 ==
LOC: EDUNIT# → ED 11:00 → ICU 14:19
PROVIDERS: ADMIT Specialist; ATTEND Internal Medicine
DX: J96.22 Acute and chronic respiratory failure with hypercapnia (principal); G93.41 Metabolic encephalopathy; Z68.43 Body mass index [BMI] 50.0-59.9, adult; I48.92 Unspecified atrial flutter; I69.051 Hemiplegia and hemiparesis following nontraumatic subarachnoid hemorrhage affecting right dominant side; J96.21 Acute and chronic respiratory failure with hypoxia; R68.0 Hypothermia, not associated with low environmental temperature; I48.2 Chronic atrial fibrillation; I11.0 Hypertensive heart disease with heart failure; I50.9 Heart failure, unspecified; E78.00 Pure hypercholesterolemia, unspecified; I25.10 Atherosclerotic heart disease of native coronary artery without angina pectoris; J44.9 Chronic obstructive pulmonary disease, unspecified; G47.30 Sleep apnea, unspecified; E11.42 Type 2 diabetes mellitus with diabetic polyneuropathy; K21.9 Gastro-esophageal reflux disease without esophagitis; N40.1 Benign prostatic hyperplasia with lower urinary tract symptoms; N39.498 Other specified urinary incontinence; R33.8 Other retention of urine; R35.0 Frequency of micturition; R35.1 Nocturia; F32.9 Major depressive disorder, single episode, unspecified; M53.3 Sacrococcygeal disorders, not elsewhere classified; E66.01 Morbid (severe) obesity due to excess calories; J38.00 Paralysis of vocal cords and larynx, unspecified; Z79.4 Long term (current) use of insulin; Z79.82 Long term (current) use of aspirin; Z79.899 Other long term (current) drug therapy; Z79.51 Long term (current) use of inhaled steroids; Z79.01 Long term (current) use of anticoagulants; Z79.891 Long term (current) use of opiate analgesic; Z74.01 Bed confinement status; Z87.01 Personal history of pneumonia (recurrent); Z86.14 Personal history of Methicillin resistant Staphylococcus aureus infection; Z87.891 Personal history of nicotine dependence; Z91.19 Patient's noncompliance with other medical treatment and regimen; Z93.0 Tracheostomy status
CPT/HCPCS: 36415; 36600; 70450; 71045; 80048; 80053; 80306; 80307; 80320; 80329; 81001; 81003; 82009; 82140; 82550; 82803; 83036; 83690; 83735; 84100; 84484; 85025; 85610; 85730; 87086; 87150; 87640; 93005; 94640; 94644; 99284; 99285